=== PATIENT | female | born 1935 | race Caucasian/White ===

== ENCOUNTER → 2017-05-23 | Day surgery (SDC) | payer OTHER ==
[2017-05-17 10:36] VITALS: BMI 36.0
[~2017-05-23] VITALS: Ht 157.5 cm; Wt 90.9 kg
[~2017-05-23] MED LIST: ASPCH81X PO; ATOR-22 PO; CRFL PO; FERR1TAB23 PO; HYDR25TA5 PO; LEVO100T7 PO; LIDOCAINE HCL 2% 2 ML VIAL (20MG/ML) ONE; LISI40TA PO; METO25TA56 PO; MIDAZOLAM HCL 1 MG/ML 2ML VIAL ONE; OMEP40CA41 PO; ONDANSETRON INJ 2 MG/ML 2 ML VIAL ONE; PROPOFOL IV EMULSION 10 MG/ML 20 ML VIAL IV ONE; SODIUM CHLORIDE 0.9% 500ML 500 ML IV ONE; VNTHFA/IN INH
[2017-05-23 08:37] VITALS: Ht 157.5 cm; Wt 90.9 kg
--- NOTE | 2017-05-23 08:43 | Endo History and Physical ---
History & Physical Date of Service: May 23, 2017. Chief Complaint: Referring Physician: History of Present Illness patient with PUD, here for EGD to evaluate healing of the ulcer. Past Surgical History Hx Cardiac Surgery: Yes (HEART CATH-NO STENTS) Hx Internal Defibrillator: No Hx Pacemaker: No Hx Abdominal Surgery: No Hx Post-Op Nausea and Vomiting: Yes Hx Cancer Surgery: No Hx Thoracic Surgery: No Hx Orthopedic: Yes (TATYANA. TKA, LUMBAR SPINAL FUSION) Hx Urinary Tract Surgery: No Family History None Social History Smoking Status: Never Smoker Hx Substance Use: No Hx Alcohol Use: No Allergies Coded Allergies: BEE STING (Verified Allergy, Intermediate, SWELLING, 05/17/17) Sulfa Antibiotics (Verified Allergy, Intermediate, RASH, 05/17/17) Current Medications Reported Home Medications Medications Dose Route/Sig Max Daily Dose Days Date Category Prilosec (Omeprazole) 40 Mg Cap 40 Mg PO BID 05/17/17 Reported Carafate (Sucralfate) 1 Gm/10 Ml Mari 10 Ml PO QID 05/17/17 Reported Iron (Ferrous Sulfate) 325 Mg Tab 1 Tab PO TID 05/17/17 Reported Aspirin Chewable (Aspirin) 81 Mg Chew 2 Tab PO QAM 01/31/17 Reported Ventolin Hfa (Albuterol) 200 Puffs/49710 Mcg Aers 2-4 Puffs INH Q6H PRN 01/31/17 Reported Zestril (Lisinopril) 40 Mg Tab 20 Mg PO QAM 01/31/17 Reported Lopressor (Metoprolol Tartrate) 25 Mg Tab 25 Mg PO HS 01/31/17 Reported Levothyroxine Sodium 100 Mcg Tab 1 Tab PO QAM 90 01/31/17 Reported Lipitor (Atorvastatin Calcium) 20 Mg Tab 20 Mg PO QAM 01/31/17 Reported Hydrochlorothiazide 25 Mg Tab 0.5 Tab PO QAM 01/31/17 Reported Vital Signs Weight (Kilograms): 90.91 Height (Feet): 5 Height (Inches): 2 Physical Exam General Appearance: no apparent distress Respiratory/Chest: Auscultation: breath sounds normal Cardiovascular: Heart Auscultation: RRR Abdomen: Inspection & Palpation: soft, non-distended Assessment and Plan Stable for EGD. I explained the risk and benefit and she agrees.
--- NOTE | 2017-05-23 09:21 | Discharge Instructions ---
Endoscopy Patient Instructions Date / Procedure(s) Performed May 23, 2017. EGD Allergy Information Coded Allergies: BEE STING (Verified Allergy, Intermediate, SWELLING, 05/17/17) Sulfa Antibiotics (Verified Allergy, Intermediate, RASH, 05/17/17) Discharge Date / Findings May 23, 2017. Healing gastric ulcer with scar formation. Nodule in the duodenal bulb, biopsied. Medication Instructions Stopped Medication(s): IRON ONE WEEK AGO Reported Home Medications Medications Dose Route/Sig Max Daily Dose Days Date Category Prilosec (Omeprazole) 40 Mg Cap 40 Mg PO BID 05/17/17 Reported Carafate (Sucralfate) 1 Gm/10 Ml Mari 10 Ml PO QID 05/17/17 Reported Iron (Ferrous Sulfate) 325 Mg Tab 1 Tab PO TID 05/17/17 Reported Aspirin Chewable (Aspirin) 81 Mg Chew 2 Tab PO QAM 01/31/17 Reported Ventolin Hfa (Albuterol) 200 Puffs/66374 Mcg Aers 2-4 Puffs INH Q6H PRN 01/31/17 Reported Zestril (Lisinopril) 40 Mg Tab 20 Mg PO QAM 01/31/17 Reported Lopressor (Metoprolol Tartrate) 25 Mg Tab 25 Mg PO HS 01/31/17 Reported Levothyroxine Sodium 100 Mcg Tab 1 Tab PO QAM 90 01/31/17 Reported Lipitor (Atorvastatin Calcium) 20 Mg Tab 20 Mg PO QAM 01/31/17 Reported Hydrochlorothiazide 25 Mg Tab 0.5 Tab PO QAM 01/31/17 Reported Provider Instructions Activity Restrictions - No exercising or heavy lifting for 24 hours. - Do not drink alcohol the day of the procedure. - Do not drive a car or operate machinery until the day after the procedure. - Do not make any important decisions or sign important papers in 24 hours after the procedure. Following Day: - Return to full activity which may include returning to work/school. Diet Start your diet with liquids and light foods (jello, soup, juice, toast). Then eat your usual diet if not nauseated. Treatment For Common After Affects For mild abdominal pain, bloating, or excessive gas: - Rest - Eat lightly - Lie on right side Follow-Up Information Await pathology result. Follow-up with DR. ORLANDO as scheduled Anesthesia Information What You Should Know You have had a procedure that required some medicine to reduce anxiety and discomfort. This treatment is called moderate sedation. After receiving the treatment, you may be sleepy, but you will be able to breathe on your own. The effects of the treatment may last for several hours. Follow these instructions along with Activity/Diet recommendations noted above: * Do NOT do anything where dizziness or clumsiness would be dangerous. * Rest quietly at home today, then you can be up and about tomorrow. * Have a responsible person stay with you the rest of today. * You may have had an I.V. today. If so, you may take the dressing off later today. Recommendations Call your doctor if: * Trouble breathing * Continuous vomiting for more than 24 hours * Temperature above 101 degrees * Severe abdominal pain or bloating * Pain not relieved by pain medicine ordered * There is increased drainage or redness from any incision * A large amount of rectal bleeding greater than 2-3 tablespoons. (If you had a polyp/s removed or have hemorrhoids, a small amount of blood - from the rectum is to be expected.) * You have any unanswered questions or concerns. IN THE EVENT OF A SERIOUS EMERGENCY, GO TO THE NEAREST EMERGENCY ROOM Your discharge instructions were prepared by provider Robinson May. Patient Instructions Signature Page Magdalena Payan Patient (or Guardian) Signature/Date: I have read and understand the instructions given to me by my caregivers. Caregiver/RN/Doctor Signature/Date: The above-named patient and/or guardian has received patient instructions on this date. + Original Patient Signature Page (only) stays with chart. Please make copy for patient.
--- NOTE | 2017-05-23 09:34 | GI REPORT ---
Procedure Date: 05/23/2017 8:58 AM Procedure: Upper GI endoscopy Indications: Follow-up of gastric ulcer Medicines: Monitored Anesthesia Care Complications: No immediate complications. Estimated Blood Loss: Estimated blood loss: none. Procedure: Pre-Anesthesia Assessment: - Prior to the procedure, a History and Physical was performed, and patient medications and allergies were reviewed. The patient is competent. The risks and benefits of the procedure and the sedation options and risks were discussed with the patient. All questions were answered and informed consent was obtained. Patient identification and proposed procedure were verified by the physician and the nurse in the procedure room. Mental Status Examination: alert and oriented. Airway Examination: normal oropharyngeal airway and neck mobility. Respiratory Examination: clear to auscultation. CV Examination: normal. ASA Grade Assessment: II - A patient with mild systemic disease. After reviewing the risks and benefits, the patient was deemed in satisfactory condition to undergo the procedure. The anesthesia plan was to use monitored anesthesia care (MAC). Immediately prior to administration of medications, the patient was re-assessed for adequacy to receive sedatives. The heart rate, respiratory rate, oxygen saturations, blood pressure, adequacy of pulmonary ventilation, and response to care were monitored throughout the procedure. The physical status of the patient was re-assessed after the procedure. After obtaining informed consent, the endoscope was passed under direct vision. Throughout the procedure, the patient's blood pressure, pulse, and oxygen saturations were monitored continuously. The scope was introduced through the mouth, and advanced to the second part of duodenum. The upper GI endoscopy was accomplished without difficulty. The patient tolerated the procedure well. Findings: The examined esophagus was normal. The prior gastric ulcer in the antrum seems to be healing now with scar formation. Adjacent mucosal findings include erosions and erythema. A single 12 mm submucosal nodule was found in the duodenal bulb. Biopsies were taken with a cold forceps for histology. Verification of patient identification for the specimen was done by the physician and nurse using the patient's name and date. The 2nd part of the duodenum was normal. Impression: - Normal esophagus. - Prior Gastric ulcer is healing with scar formation in the gastric antrum and surrounding erythema noted. - Nodule found in the duodenum. Biopsied. - Normal 2nd part of the duodenum. Recommendation: - Discharge patient to home. - Continue present medications. - Await pathology results. - Continue Omeprazole. - Avoid NSAIDs. - Repeat EGD + endoscopic ultrasound (UEUS) of the duodenal lesion based on pathology results. - Return to referring physician. Robinson May MD 05/23/2017 9:33:45 AM This report has been signed electronically. Note Initiated On: 05/23/2017 8:58 AM I attest to the content of the Intraoperative Record and orders documented therein, exceptions below
--- NOTE | 2017-05-23 09:56 | Anesthesiology Progress Note ---
Anesthesia Post Op Note Date & Time May 23, 2017 at 09:56 Vital Signs Pain Intensity: 0 Vital Signs Past 12 Hours Date Time Temp Pulse Resp B/P (MAP) Pulse Ox O2 Delivery O2 Flow Rate FiO2 05/23/17 09:45 56 16 125/63 (83) 94 Room Air 05/23/17 09:27 59 16 115/70 (85) 96 Room Air 05/23/17 08:46 36.7 65 18 166/95 (118) 97 Room Air Notes Mental Status: alert / awake / arousable, participated in evaluation Pt Amnestic to Procedure: Yes Nausea / Vomiting: adequately controlled Pain: adequately controlled Airway Patency, RR, SpO2: stable & adequate BP & HR: stable & adequate Hydration State: stable & adequate Anesthetic Complications: no major complications apparent
[2017-05-23 10:00] VITALS: BP 137/77; PULSE 57; O2SAT 96
== END | disposition home or self-care (01) ==
LOC: C.GI 08:15
PROVIDERS: ATTEND Student in an Organized Health Care Education/Training Program
DX: D3A.010 Benign carcinoid tumor of the duodenum (principal); Z87.11 Personal history of peptic ulcer disease; I10 Essential (primary) hypertension; Z79.82 Long term (current) use of aspirin; Z79.899 Other long term (current) drug therapy; E78.5 Hyperlipidemia, unspecified; E03.9 Hypothyroidism, unspecified; M19.90 Unspecified osteoarthritis, unspecified site; D64.9 Anemia, unspecified; E66.9 Obesity, unspecified; Z68.36 Body mass index [BMI] 36.0-36.9, adult

== ENCOUNTER → 2017-06-01 | Outpatient (CLI) | payer OTHER ==
[~2017-06-01] MED LIST changes: -LIDOCAINE HCL 2% 2 ML VIAL (20MG/ML) ONE; -MIDAZOLAM HCL 1 MG/ML 2ML VIAL ONE; -ONDANSETRON INJ 2 MG/ML 2 ML VIAL ONE; -PROPOFOL IV EMULSION 10 MG/ML 20 ML VIAL IV ONE; -SODIUM CHLORIDE 0.9% 500ML 500 ML IV ONE
--- NOTE | 2017-06-01 12:17 | DIAGNOSTIC IMAGING REPORT ---
SMALL BOWEL STUDY CLINICAL HISTORY: CARCINOID TUMOR DUODENAL BULB COMPARISON STUDY: None. FLUOROSCOPY TIME: 1.1 minute. 14 images. FINDINGS: Administrative Judge image demonstrates posterior decompression fusion from L3 through L5 with protrusion rods. 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 The patient drank barium contrast without difficulty. Multiple fluoroscopic spot and a right images of the small bowel were obtained over a 40 minute time interval. Small bowel is normal in course and caliber. No dilated loops of small bowel to suggest an obstruction. The terminal ileum is normally distensible. Stomach is normal in size. The duodenal bulb is not well visualized due to suboptimal contrast opacification. IMPRESSION: 1. Normal small bowel follow-through. No filling defects within the small bowel to suggest a mass. 2. The duodenum bulb was not well evaluated due to suboptimal contrast opacification. If further evaluation of the proximal duodenum is desired then a dedicated upper GI series is recommended. Electronically signed by: Jeronimo De La Cruz M.D. 06/01/2017 11:36 AM Dictated Date/Time: 06/01/2017 11:32 AM
== END | disposition home or self-care (01) ==
LOC: C.RAD 09:55
PROVIDERS: ATTEND Student in an Organized Health Care Education/Training Program
DX: D3A.019 Benign carcinoid tumor of the small intestine, unspecified portion (principal)

== ENCOUNTER → 2017-06-02 | Outpatient (CLI) | payer OTHER ==
[~2017-06-02] MED LIST changes: +ASPI81TA28 PO; +GADOXETATE DISODIUM (NON-WT BASED PROCEDURE) IV PRN
--- NOTE | 2017-06-02 13:43 | DIAGNOSTIC IMAGING REPORT ---
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 COMPARISON STUDY: Abdominal CT dated 08/25/2009. TECHNIQUE: MRI of the abdomen is performed transverse T1 and T2-weighted sequences in the axial and coronal planes. Contrast enhanced sequences were acquired following the IV administration of 10 cc view of Eovist subtraction imaging and diffusion-weighted imaging were utilized. MRCP images were also acquired. The examination is moderately degraded by motion artifact, especially arterial phase postcontrast sequence. FINDINGS: Lower chest: No pleural effusion is identified. The heart is normal in size. Liver: The liver is normal in size, contour, and signal intensity. No intrahepatic biliary ductal dilatation is seen. The hepatic veins and portal veins are patent. Subcentimeter cysts are noted in the dome of the liver on axial T2 image #5. A subcentimeter cyst is noted in the left hepatic lobe on image #11. Additional cysts seen on the 2010 CT examination have resolved. No enhancing hepatic lesion is identified. Gallbladder: The gallbladder is normal in appearance. No gallstones are identified. The common bile duct is dilated, measuring up to 1.3 cm diameter. This is likely similar to the prior CT scan. There are no filling defects to indicate choledocholithiasis. There is prominence of the pancreatic duct which measures up to 5 mm The pancreatic head. Spleen: Normal in size and signal intensity. Pancreas: Moderately atrophic and grossly unremarkable. Adrenal glands: Unremarkable. Kidneys: The kidneys demonstrate mild cortical atrophy and are without hydronephrosis. The kidneys enhance and excrete symmetrically. Abdominal aorta: Normal in course and caliber. Bowel: Visualized portions of the small bowel and colon show no evidence of obstruction. The reported duodenal tumor is not visualized. Peritoneum: There is no abdominal ascites. Lymphadenopathy: None. Skeletal structures: Visualized skeletal structures times are normal marrow signal intensity. IMPRESSION: 1. There is no MRI evidence of hepatic metastatic disease. 2. The patient's reported duodenal tumor was not visualized. 3. Additional findings as above. Electronically signed by: Cl Ramesh M.D. 06/02/2017 1:42 PM Dictated Date/Time: 06/02/2017 1:34 PM
== END | disposition home or self-care (01) ==
LOC: C.MRIBC 11:59
PROVIDERS: ATTEND Student in an Organized Health Care Education/Training Program
DX: D3A.010 Benign carcinoid tumor of the duodenum (principal)

== ENCOUNTER 2017-08-01 21:20 | Emergency (ER) | payer OTHER ==
[~2017-08-01] VITALS: Ht 157.5 cm; Wt 96.4 kg
[~2017-08-01 21:20] MED LIST changes: -ASPI81TA28 PO; -GADOXETATE DISODIUM (NON-WT BASED PROCEDURE) IV PRN
[2017-08-01 21:22] VITALS: TEMP 36.6; Ht 157.5 cm; Wt 96.4 kg
--- NOTE | 2017-08-01 21:52 | EMERGENCY ROOM VISIT NOTE ---
History Report prepared by Katie: Rambo Hoff Under the Supervision of: Dr. Philipp Schumacher M.D. First contact with patient: 21:40 Chief Complaint: HYPERTENSION Stated Complaint: HIGH BP History of Present Illness The patient is a 81 year old white female with a past medical history of vertigo and HTN who presents to the ED with a cc of worsening hypertension beginning prior to arrival today. Positive head "numbness", wooziness. She currently has a systolic blood pressure in the 210's. The patient states that her blood pressure normally runs 130 systolic, and never goes over 140. She notes that she has been taking all her blood pressure medications, including Lopressor and Lisinopril. She adds that she took herself off of her HCTZ a few months ago. The patient says that walking is making her woozy today, but her head "numbness" is getting better. She notes no tobacco or alcohol use, nor any excessive stimulant use. She adds that when she measured her blood pressure earlier this afternoon, it was around the 180s systolic. Source of History: patient Onset: [employer] today Position: other (global) Symptom Intensity: 210s systolic Quality: other (hypertension) Timing: worsening Associated Symptoms: + numbness (head - resolving) Note: Positive wooziness with walking. Review of Systems See HPI for pertinent positives and negatives. A total of ten systems were reviewed and were otherwise negative. Past Medical & Surgical Medical Problems: (1) HTN (hypertension) (2) Knee replacement (3) Vertigo Family History Diabetes mellitus FH: cancer FH: gallbladder disease FH: heart disease Hypertension Social History Smoking Status: Never Smoker Drug Use: none Marital Status: Housing Status: lives with significant other Occupation Status: retired Current/Historical Medications Scheduled Aspirin (Aspirin Ec), 162 MG PO QAM Atorvastatin (Lipitor), 20 MG PO QAM Ferrous Sulfate (Iron), 325 MG PO TID Hydrochlorothiazide (Hydrochlorothiazide), 12.5 MG PO QAM Levothyroxine Sodium (Levothyroxine Sodium), 100 MCG PO QAM Lisinopril (Zestril), 20 MG PO QAM Metoprolol Tartrate (Lopressor) (Lopressor), 25 MG PO HS Omeprazole (Prilosec), 40 MG PO BID Sucralfate (Carafate), 10 ML PO QID Scheduled PRN Albuterol Hfa (Ventolin Hfa), 2-4 PUFFS INH Q6H PRN for Shortness of Breath Allergies Coded Allergies: BEE STING (Verified Allergy, Intermediate, SWELLING, 05/17/17) Sulfa Antibiotics (Verified Allergy, Intermediate, RASH, 05/17/17) Physical Exam Vital Signs Date Time Temp Pulse Resp B/P (MAP) Pulse Ox O2 Delivery O2 Flow Rate FiO2 08/01/17 22:43 61 16 153/86 100 Room Air 08/01/17 22:10 61 16 206/89 100 Room Air 08/01/17 22:04 100 Room Air 08/01/17 21:50 57 08/01/17 21:22 36.6 60 16 211/95 97 Room Air Physical Exam GENERAL: Awake, alert, well-appearing, NAD HENT: Normocephalic, atraumatic. EYES: Normal conjunctiva. Sclera non-icteric. NECK: Supple. No nuchal rigidity. FROM. RESPIRATORY: CTAB, no rhonchi, wheezing, crackles CARDIAC: RRR, no MRG ABDOMEN: Soft, NTND, BS+ MSK: No chest wall TTP, no LE edema NEURO: GCS 15, CN 2-12 intact, moves all 4s on command SKIN: No rash or jaundice noted. Medical Decision & Procedures Laboratory Results 08/01/17 21:45 Red Blood Count 4.81, Mean Corpuscular Volume 88.6, Mean Corpuscular Hemoglobin 29.1, Mean Corpuscular Hemoglobin Concent 32.9, Mean Platelet Volume 9.6, Neutrophils (%) (Auto) 59.8, Lymphocytes (%) (Auto) 21.4, Monocytes (%) (Auto) 9.8, Eosinophils (%) (Auto) 8.4, Basophils (%) (Auto) 0.3, Neutrophils # (Auto) 4.68, Lymphocytes # (Auto) 1.67, Monocytes # (Auto) 0.77, Eosinophils # (Auto) 0.66, Basophils # (Auto) 0.02 08/01/17 21:45 Test 08/01/17 21:45 White Blood Count 7.82 K/uL (4.8-10.8) Red Blood Count 4.81 M/uL (4.2-5.4) Hemoglobin 14.0 g/dL (12.0-16.0) Hematocrit 42.6 % (37-47) Mean Corpuscular Volume 88.6 fL (80-100) Mean Corpuscular Hemoglobin 29.1 pg (25-34) Mean Corpuscular Hemoglobin Concent 32.9 g/dl (32-36) Platelet Count 208 K/uL (130-400) Mean Platelet Volume 9.6 fL (7.4-10.4) Neutrophils (%) (Auto) 59.8 % Lymphocytes (%) (Auto) 21.4 % Monocytes (%) (Auto) 9.8 % Eosinophils (%) (Auto) 8.4 % Basophils (%) (Auto) 0.3 % Neutrophils # (Auto) 4.68 K/uL (1.4-6.5) Lymphocytes # (Auto) 1.67 K/uL (1.2-3.4) Monocytes # (Auto) 0.77 K/uL (0.11-0.59) Eosinophils # (Auto) 0.66 K/uL (0-0.5) Basophils # (Auto) 0.02 K/uL (0-0.2) RDW Standard Deviation 57.8 fL (36.4-46.3) RDW Coefficient of Variation 17.6 % (11.5-14.5) Immature Granulocyte % (Auto) 0.3 % Immature Granulocyte # (Auto) 0.02 K/uL (0.00-0.02) Anion Gap 7.0 mmol/L (3-11) Est Creatinine Clear Calc Drug Dose 35.6 ml/min Estimated GFR () 41.7 Estimated GFR (Non- 36.0 BUN/Creatinine Ratio 17.3 (10-20) Calcium Level 9.1 mg/dl (8.5-10.1) Laboratory results reviewed by me Medications Administered Medications (Trade) Dose Ordered Sig/Deysi Route Start Time Stop Time Status Last Admin Dose Admin Metoprolol Tartrate (Lopressor Tab) 25 mg NOW STAT PO 08/01/17 21:54 08/01/17 21:56 DC 08/01/17 22:03 25 MG Acetaminophen (Tylenol Tab) 650 mg NOW STAT PO 08/01/17 21:54 08/01/17 21:56 DC 08/01/17 22:03 650 MG Nitroglycerin (Nitrostat Tab) 0.4 mg NOW STAT SL 08/01/17 21:54 08/01/17 21:56 DC 08/01/17 22:02 0.4 MG ECG Per My Interpretation Indication: other (hypertension) Rate (beats per minute): 61 Rhythm: sinus rhythm Findings: 1st degree AV block, Q waves (Inferior), other (prolonged [place], normal axis, no other sts changes or twi) Change: no significant change (compared to 12/01/13) ED Course 2145: The patient was evaluated in room C4. A complete history and physical exam was performed. 2241: I reevaluated the patient and she is resting comfortably. Discussed results and discharge instructions: she verbalized understanding and agreement. The patient is ready for discharge. Medical Decision The patient is a 81 year old white female with a past medical history of vertigo and HTN who presents to the ED with a cc of worsening hypertension beginning prior to arrival today. Positive head "numbness", wooziness. Differential diagnosis: Etiologies such as benign hypertension, hypertensive emergency, cardiovascular pathology, pheochromocytoma, electrolyte abnormality, renal disease, endorgan damage, as well as others were entertained. Patient was seen and evaluated the bedside. Patient did complain of some head numbness. Patient also stated that she had an elevated blood pressure. She states that she took her blood pressure which was 180 and then 200 systolic. Patient denies any chest pains or shortness of breath. She also denies any numbness tingling or weakness in her extremities or back or body. Patient's neurologic exam is completely unremarkable. Patient denies any vision deficits. Patient did have blood work completed and was given some medication for blood pressure as well as for headache. Patient's blood pressure improved and patient feels well and asymptomatic. I discussed with the patient that since she had stopped taking her hydrochlorothiazide it would be of benefit to restart taking this medication. Patient was also told to follow with her PCP order to make sure that her medications were adjusted appropriately. Patient was given warning signs and return precautions. Patient and family member at the bedside agreed with plan of care. Patient was given strict follow-up, discharge, and return precautions. All questions were answered. Patient was deemed suitable for outpatient follow-up at this time. Patient agreed with the plan of care and was safely discharged home. Medication Reconcilliation Current Medication List: was personally reviewed by me Blood Pressure Screening Patient's blood pressure: Elevated blood pressure Blood pressure disposition: Referred to PCP Impression Primary Impression: HTN (hypertension) Scribe Attestation The scribe's documentation has been prepared under my direction and personally reviewed by me in its entirety. I confirm that the note above accurately reflects all work, treatment, procedures, and medical decision making performed by me. Departure Information Dispostion Home / Self-Care Referrals Chelsey Mitchell D.O. (PCP) Patient Instructions Hypertension Control, Hypertension Dc, My [facility] Additional Instructions Please return to the emergency department if you have worsening or recurrent symptoms not amenable to at-home treatment. Please call for a follow-up appointment with her primary care physician. Please take your medications as prescribed. If you have other concerns and/or complaints please feel free to also call your primary care physician's office or return the ED for further evaluation, management, and treatment. You were found to have an elevated blood pressure today (>120 sytolic or >90 diastolic). Per medicare guidelines, you need to follow up with this blood pressure screening with your Primary Care Physician (PCP). For a new PCP call [phone]. You may take tylenol 650 mg every 6 hours as needed for pain. Take your medications as prescribed. Please resume taking your hydrochlorothiazide. If you do notice that her blood pressure is up she may also take an extra Lopressor provided that your heart rate is greater than 60. Please follow-up with your PCP for the blood pressure management. You have been examined and treated today on an emergency basis only. This is not a substitute for, or an effort to provide, complete comprehensive medical care. It is impossible to recognize and treat all injuries or illnesses in a single emergency department visit. It is therefore important that you follow up closely with [facility], your PCP, and/or your specialist(s). Call as soon as possible for an appointment. Thank you for your time and consideration. I look forward to speaking with you again soon. Please don't hesitate to call us if you have any questions. Problem Qualifiers Primary Impression: HTN (hypertension) Hypertension type: unspecified Qualified Codes: I10 - Essential (primary) hypertension
[2017-08-01] MEDS ORDERED: NITROGLYCERIN 0.4 MG SL PER TAB CHARGE SL STA (21:54)
[2017-08-01] MEDS ORDERED: METOPROLOL TARTRATE 50 MG TAB PO STA (21:54)
[2017-08-01] MEDS ORDERED: ACETAMINOPHEN 325 MG TAB PO STA (21:54)
[2017-08-01 22:04] VITALS: O2SAT 100
[2017-08-01 22:05] LABS: BASO % 0.3 %; BASO ABS # 0.02 K/uL (0-0.2); EOS % 8.4 %; EOS ABS # 0.66 K/uL (0-0.5); HEMATOCRIT 42.6 % (37-47); IG# 0.02 K/uL (0.00-0.02); LYMPH % 21.4 %; LYMPH ABS # 1.67 K/uL (1.2-3.4); MEAN CELL VOLUME 88.6 fL (80-100); MEAN CORPUSCULAR HEMOGLOBIN 29.1 pg (25-34); MEAN CORPUSCULAR HGB CONC 32.9 g/dl (32-36); MEAN PLATELET VOLUME 9.6 fL (7.4-10.4); MONO % 9.8 %; MONO ABS # 0.77 K/uL (0.11-0.59); NEUT % 59.8 %; NEUT ABS # 4.68 K/uL (1.4-6.5); PLATELET COUNT 208 K/uL (130-400); RED CELL DISTRIBUTION WIDTH CV 17.6 % (11.5-14.5); RED CELL DISTRIBUTION WIDTH SD 57.8 fL (36.4-46.3); WHITE BLOOD COUNT 7.82 K/uL (4.8-10.8)
[2017-08-01] MEDS ORDERED: ASPI81TA28 PO (22:18)
[2017-08-01 22:23] LABS: CALCIUM 9.1 mg/dl (8.5-10.1); CREATININE 1.39 mg/dl (0.60-1.20); POTASSIUM 3.8 mmol/L (3.5-5.1)
[2017-08-01 22:43] VITALS: PULSE 61; O2SAT 100
[2017-08-01 23:07] VITALS: BP 142/70
== END 2017-08-01 23:08 | disposition home or self-care (01) ==
LOC: C.EDB 21:21 → C.EDC 23:08
DX: I10 Essential (primary) hypertension (principal); Z96.659 Presence of unspecified artificial knee joint; Z79.82 Long term (current) use of aspirin; Z79.899 Other long term (current) drug therapy

== ENCOUNTER → 2017-08-31 | Day surgery (SDC) | payer OTHER ==
[2017-08-23 07:54] VITALS: Ht 157.5 cm; Wt 90.9 kg
[~2017-08-31] VITALS: Ht 157.5 cm; Wt 90.9 kg
[~2017-08-31] MED LIST changes: -ASPCH81X PO; +ASPI81TA28 PO; -HYDR25TA5 PO; +LIDOCAINE HCL 2% 2 ML VIAL (20MG/ML) ONE; +PROPOFOL IV EMULSION 10 MG/ML 20 ML VIAL IV ONE; +SODIUM CHLORIDE 0.9% 500ML 500 ML IV ONE
--- NOTE | 2017-08-31 08:25 | Endo History and Physical ---
History & Physical Date of Service: Aug 31, 2017. Chief Complaint: Referring Physician: History of Present Illness Patient with Hx of duodenal carcinoid s/p BWR, here for follow up. Past Surgical History Hx Cardiac Surgery: Yes (HEART CATH-NO STENTS) Hx Internal Defibrillator: No Hx Pacemaker: No Hx Abdominal Surgery: No Hx Post-Op Nausea and Vomiting: Yes (N/V AFTER CATARACT SURGERY) Hx Cancer Surgery: Yes (SKIN EXCISION) Hx Thoracic Surgery: No Hx Orthopedic: Yes (TATYANA. TKA, LUMBAR SPINAL FUSION) Hx Urinary Tract Surgery: No Family History None Social History Smoking Status: Never Smoker Hx Substance Use: No Hx Alcohol Use: No Allergies Coded Allergies: BEE STING (Verified Allergy, Intermediate, SWELLING, 08/31/17) Sulfa Antibiotics (Verified Allergy, Intermediate, RASH, 08/31/17) Current Medications Reported Home Medications Medications Dose Route/Sig Max Daily Dose Days Date Category Aspirin Ec (Aspirin) 81 Mg Tab 162 Mg PO QAM 08/01/17 Reported Prilosec (Omeprazole) 40 Mg Cap 40 Mg PO BID 05/17/17 Reported Carafate (Sucralfate) 1 Gm/10 Ml Mari 10 Ml PO QID 05/17/17 Reported Iron (Ferrous Sulfate) 325 Mg Tab 325 Mg PO BID 05/17/17 Reported Ventolin Hfa (Albuterol) 200 Puffs/78863 Mcg Aers 2-4 Puffs INH Q6H PRN 01/31/17 Reported Zestril (Lisinopril) 40 Mg Tab 40 Mg PO QAM 01/31/17 Reported Lopressor (Metoprolol Tartrate) 25 Mg Tab 25 Mg PO HS 01/31/17 Reported Levothyroxine Sodium 100 Mcg Tab 100 Mcg PO QAM 01/31/17 Reported Lipitor (Atorvastatin Calcium) 20 Mg Tab 20 Mg PO QAM 01/31/17 Reported Vital Signs Weight (Kilograms): 90.91 Height (Feet): 5 Height (Inches): 2 Physical Exam General Appearance: no apparent distress Respiratory/Chest: Auscultation: breath sounds normal Cardiovascular: Heart Auscultation: RRR Abdomen: Inspection & Palpation: soft Liver: non-tender Assessment and Plan Stable for EGD for surveillance on Carcinoid
[2017-08-31 08:26] VITALS: TEMP 36.6
--- NOTE | 2017-08-31 09:19 | GI REPORT ---
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 Estimated Blood Loss: Estimated blood loss: none. Procedure: Pre-Anesthesia Assessment: - Prior to the procedure, a History and Physical was performed, and patient medications and allergies were reviewed. The patient is competent. The risks and benefits of the procedure and the sedation options and risks were discussed with the patient. All questions were answered and informed consent was obtained. Patient identification and proposed procedure were verified by the physician and the nurse in the procedure room. Mental Status Examination: alert and oriented. Airway Examination: normal oropharyngeal airway and neck mobility. Respiratory Examination: clear to auscultation. CV Examination: normal. ASA Grade Assessment: III - A patient with severe systemic disease. After reviewing the risks and benefits, the patient was deemed in satisfactory condition to undergo the procedure. The anesthesia plan was to use monitored anesthesia care (MAC). Immediately prior to administration of medications, the patient was re-assessed for adequacy to receive sedatives. The heart rate, respiratory rate, oxygen saturations, blood pressure, adequacy of pulmonary ventilation, and response to care were monitored throughout the procedure. The physical status of the patient was re-assessed after the procedure. After obtaining informed consent, the endoscope was passed under direct vision. Throughout the procedure, the patient's blood pressure, pulse, and oxygen saturations were monitored continuously. The Scope was introduced through the mouth, and advanced to the second part of duodenum. The upper GI endoscopy was accomplished without difficulty. The patient tolerated the procedure well. Findings: The examined esophagus was normal. Localized mild inflammation characterized by erosions and erythema was found in the gastric antrum. A small scar related to post banding without resection (BWR) of prior Carcinoid tumor was found in the duodenal bulb. There was no evidence of the previous nodule. Biopsies were taken with a cold forceps for histology to confirm microscopic resolution. Verification of patient identification for the specimen was done by the physician and nurse using the patient's name and date. The second portion of the duodenum was normal. Impression: - Normal esophagus. - Gastritis. - Duodenal scar at the resection site of (BWR). No evidence of residual tumor (Carcinoid). Biopsied. - Normal second portion of the duodenum. Recommendation: - Discharge patient to home. - Await pathology results. - Can decrease Prilosec (omeprazole) to 40 mg PO daily. - Repeat upper endoscopy in 1 year for surveillance. - Return to referring physician. Robinson May MD 08/31/2017 9:18:56 AM This report has been signed electronically. Note Initiated On: 08/31/2017 8:32 AM I attest to the content of the Intraoperative Record and orders documented therein, exceptions below
--- NOTE | 2017-08-31 09:20 | Discharge Instructions ---
Endoscopy Patient Instructions Date / Procedure(s) Performed Aug 31, 2017. EGD Allergy Information Coded Allergies: BEE STING (Verified Allergy, Intermediate, SWELLING, 08/31/17) Sulfa Antibiotics (Verified Allergy, Intermediate, RASH, 08/31/17) Discharge Date / Findings Aug 31, 2017. Normal esophagus. Gastritis. Scar at the site of prior resected duodenal carcinoid tumor. No evidence of residual tumor. This was biopsied. Provider Instructions Activity Restrictions - No exercising or heavy lifting for 24 hours. - Do not drink alcohol the day of the procedure. - Do not drive a car or operate machinery until the day after the procedure. - Do not make any important decisions or sign important papers in 24 hours after the procedure. Following Day: - Return to full activity which may include returning to work/school. Diet Start your diet with liquids and light foods (jello, soup, juice, toast). Then eat your usual diet if not nauseated. Treatment For Common After Affects For mild abdominal pain, bloating, or excessive gas: - Rest - Eat lightly - Lie on right side Follow-Up Information Follow-up with Dr. Mitchell as scheduled Anesthesia Information What You Should Know You have had a procedure that required some medicine to reduce anxiety and discomfort. This treatment is called moderate sedation. After receiving the treatment, you may be sleepy, but you will be able to breathe on your own. The effects of the treatment may last for several hours. Follow these instructions along with Activity/Diet recommendations noted above: * Do NOT do anything where dizziness or clumsiness would be dangerous. * Rest quietly at home today, then you can be up and about tomorrow. * Have a responsible person stay with you the rest of today. * You may have had an I.V. today. If so, you may take the dressing off later today. Recommendations Call your doctor if: * Trouble breathing * Continuous vomiting for more than 24 hours * Temperature above 101 degrees * Severe abdominal pain or bloating * Pain not relieved by pain medicine ordered * There is increased drainage or redness from any incision * A large amount of rectal bleeding greater than 2-3 tablespoons. (If you had a polyp/s removed or have hemorrhoids, a small amount of blood - from the rectum is to be expected.) * You have any unanswered questions or concerns. IN THE EVENT OF A SERIOUS EMERGENCY, GO TO THE NEAREST EMERGENCY ROOM Your discharge instructions were prepared by provider Robinson May. Patient Instructions Signature Page Magdalena Payan Patient (or Guardian) Signature/Date: I have read and understand the instructions given to me by my caregivers. Caregiver/RN/Doctor Signature/Date: The above-named patient and/or guardian has received patient instructions on this date. + Original Patient Signature Page (only) stays with chart. Please make copy for patient.
--- NOTE | 2017-08-31 09:29 | Anesthesiology Progress Note ---
Anesthesia Post Op Note Date & Time Aug 31, 2017 at 09:29 Vital Signs Pain Intensity: 0 Vital Signs Past 12 Hours Date Time Temp Pulse Resp B/P (MAP) Pulse Ox O2 Delivery O2 Flow Rate FiO2 08/31/17 09:26 56 16 129/63 (85) 96 Room Air 08/31/17 09:09 60 16 106/48 (67) 94 Room Air 08/31/17 08:26 36.6 67 18 194/75 (114) 96 Room Air Notes Mental Status: alert / awake / arousable, participated in evaluation Pt Amnestic to Procedure: Yes Nausea / Vomiting: adequately controlled Pain: adequately controlled Airway Patency, RR, SpO2: stable & adequate BP & HR: stable & adequate Hydration State: stable & adequate Anesthetic Complications: no major complications apparent
[2017-08-31 09:41] VITALS: BP 145/63; PULSE 56; O2SAT 96
== END | disposition home or self-care (01) ==
LOC: C.GI 07:57
PROVIDERS: ATTEND Student in an Organized Health Care Education/Training Program
DX: Z85.068 Personal history of other malignant neoplasm of small intestine (principal); I10 Essential (primary) hypertension; E78.5 Hyperlipidemia, unspecified; E03.9 Hypothyroidism, unspecified; M19.90 Unspecified osteoarthritis, unspecified site; M81.0 Age-related osteoporosis without current pathological fracture; Z98.49 Cataract extraction status, unspecified eye; Z96.653 Presence of artificial knee joint, bilateral; Z98.1 Arthrodesis status; Z88.2 Allergy status to sulfonamides; Z91.030 Bee allergy status; Z79.82 Long term (current) use of aspirin; Z85.820 Personal history of malignant melanoma of skin

== ENCOUNTER 2020-01-08 06:36 | Observation (INO) ==
[2020-01-08] MEDS ORDERED: LIDOCAINE HCL 1% 20 ML VIAL ONE (07:06)
[2020-01-08] MEDS ORDERED: MIDAZOLAM HCL 5 MG/ML 1 ML VIAL ONE (07:07)
[2020-01-08] MEDS ORDERED: CEFAZOLIN 250 MG/ML 1 GM VIAL ONE (07:07)
[2020-01-08] MEDS ORDERED: BUPIVACAINE 0.25% 30 ML VIAL ONE (07:07)
[2020-01-08] MEDS ORDERED: BACITRACIN INJ 50,000 UNIT VIAL ONE (07:07)
[2020-01-08] MEDS ORDERED: fentaNYL citrate 100 MCG/2 ML VIAL ONE (07:07)
--- NOTE | 2020-01-08 08:21 | Pre Anesthesia Assessment ---
Date of Service January 08, 2020 Pre Sedation Assessment Vital Signs Temp Pulse Resp BP Pulse Ox 01/08/20 06:48 36.7 C 57 L 22 145/106 H 97 Cardiovascular + bradycardic Respiratory normal respiratory effort, lungs clear to auscultation Pre-Sedation Airway Assessment Smoking Status: Never smoker Hx Sleep Apnea: No Short, Thick Neck: No Thyromental Distance: > or= 3.5 Finger Breadths Oral Cavity: + WNL Mallampati Class: II ASA: ASA3 NPO Status Date of Last Intake of Fluids: 01/08/20 Time of Last Intake of Fluids: 06:00 Last Oral Intake of Fluids Comment: sips with pills Date of Last Intake of Solid Food: 01/07/20 Time of Last Intake of Solid Foods: 21:00 Procedure Planning Contraindications for Sedation: none Current Medications Reviewed: Yes Notes The planned sedation has been discussed with the patient. Informed Consent was obtained. I have identified the patient, determined the appropriateness of sedation and have assessed the patient immediately prior to the procedure. All medicine(s) and interventions are by my order.
--- NOTE | 2020-01-08 08:21 | History & Physical Bridge Note ---
Date of Service January 08, 2020 History & Physical Bridge Note I have examined the patient, reviewed the History & Physical and in the interval since the performance of the History & Physical I have noted the following changes of clinical significance: no changes noted
[2020-01-08] MEDS ORDERED: HydrALAZINE HCL 20 MG/ML VIAL ONE (08:53)
[2020-01-08] MEDS ORDERED: ONDANSETRON INJ 2 MG/ML 2 ML VIAL ONE (09:01)
--- NOTE | 2020-01-08 10:16 | Post Anesthesia Assessment ---
Date of Service January 08, 2020 Post Sedation Assessment Vital Signs Temp Pulse Resp BP Pulse Ox 01/08/20 06:48 36.7 C 57 L 22 145/106 H 97 Recovery Score Activity: Moves 4 extremities Respiration: Deep Breath/Cough Circulation: +/-20% PreAnes Value Consciousness: Fully Awake Oxygen Saturation: > 92% On Room Air Discharge Sedation Level of Care: Fast Track Phase II Post Sedation Plan On clinical assessment, the patient appears to have tolerated the sedation without complications. Patient is recovering as anticipated. Patient will continue to be monitored by nursing and may be discharged when sedation discharge criteria are met per below protocol. Upon Completions of procedure up to 15 minutes continue every 5 minute vital signs and the P.A.R. score; then discharge to a Phase I or Fast Track to Phase II per the following guidelines: * Discharge Patient to appropriate Phase II area if PAR is 8 or greater or return to pre- procedure baseline. The post - procedure orders will be as directed. * If PAR score is less than 8 or not return to pre-procedure baseline then patient will follow Phase I monitoring till PAR is reached for Phase II. The Phase I may be done in procedure room or may call to secure a Phase I area. * If naloxone or flumazenil are used for reversal, hold in Phase I for continued monitoring from when last reversal dose was given for a minimum of 60 minutes or longer pending the nurse and/or physician discretion of patient condition before discharge to Phase II. Please call the Sedation Physician to re-evaluate and complete post-note for discharge to Phase II area. Do NOT discharge from procedure sedation or Phase 1 until post- sedation evaluation note is complete by procedure /sedation MD Sedation Discharge Instructions to be given to the patient at discharge to home.
[2020-01-08] MEDS ORDERED: OXYCODONE/ACETAMINOPHEN 5mg/325mg TAB PO PRN (10:17)
[2020-01-08] MEDS ORDERED: NURSING DECISION MEDICATION ONE (10:17)
--- NOTE | 2020-01-08 10:17 | Operative Report ---
Post Operative Report Pre & Post Diagnosis SSS Operation Date: 01/08/20 08:00 <No data on this case meets the specified criteria> I identified the patient and participated in the time-out.: Yes Procedure Operation Date: 01/08/20 08:00 Actual Procedures p Pacer with A/V Leads (Dual) - Kathleen Rosas DO Surgeon Kathleen Rosas, District Adviser none Estimated Blood Loss 20 Findings Consistent with Post-Op Diagnosis Specimens none Description of Procedure see official report I attest to the content of the Intraoperative Record and any orders documented therein. Any exceptions are noted below.
[2020-01-08] MEDS ORDERED: MECLIZINE 12.5 MG TAB PO PRN (10:22)
--- NOTE | 2020-01-08 10:30 | Discharge Summary ---
Date of Service January 09, 2020 Admission HPI Per Admitting Provider Pt admitted for elective ppm due to SOB and fatigue due to SSS Admission Exam Per Admitting Provider aaox3, NAD NC/AT, EOMI Supple No JVD +bradycardia S1/S2, No murmur CTA b/l no w/r/r soft nt/nd no LE edema b/l skin intact no focal deficits Principal Diagnosis SSS s/p dual chamber ppm Discharge Exam aaox3, NAD NC/AT, EOMI Supple No JVD Nrl S1/S2, No murmur CTA b/l no w/r/r soft nt/nd no LE edema b/l skin intact no focal deficits left pectoral incision intact, no hematoma mild ecchymosis Discharge Data Allergies Allergy/AdvReac Type Severity Reaction Status Date / Time bee venom protein (honey bee) Allergy Intermediate SWELLING Verified 01/08/20 06:44 Sulfa (Sulfonamide Allergy Intermediate RASH Verified 01/08/20 06:44 Antibiotics) Procedures Performed Operation Date: 01/08/20 08:00 Actual Procedures p Pacer with A/V Leads (Dual) - Kathleen Rosas DO Ordered Studies ECG: AP-VS CXR: NO PTX, leads in position Pacemaker Interrogation: Normal function and stable lead testing since implant 01/08/20 06:40 FL pacemaker insert Routine 01/08/20 07:00 EP Lab Images for PACS ONCE Hospital Course (1) SSS (sick sinus syndrome): Total Time Total Time Spent Total Time Spent (In Minutes): 40 Total Time Includes: Examination of the Patient, Discharge Planning, Medication Reconciliation and Other Discharge Plan Discharge Items Patient Disposition: Home - Self-Care Reason For Visit: DCP Discharge Diagnosis: SSS s/p dual chamber ppm Condition on Discharge: Good Activity: As commented below Activity Comment: do not lift the left elbow over the left shoulder for 1 month Lifting: No more than 10 pounds Lifting Comment: do not lift more than 10 pounds with the left arm for 2 weeks Bathing: Keep incision dry Bathing Comment: keep dressing on and dry until wound check next week Non-emergency contact: Oyster Planter Call non-emergency contact if: you have any medication questions Follow-up/Referrals: Chelsey Mitchell DO [Primary Care Provider] - Diet: Heart Healthy Addtl Attending Provider Instructions: device and wound check next week at [facility] as scheduled wear a sports bra or the surgical bra ideally for the next 2-3 weeks to help with wound healing Pending Studies at Discharge: No Stand-Alone Forms: [facility] Medications and DC Order Prescriptions: Continued ALBUTEROL HFA (VENTOLIN HFA) 200 PUFFS/18,000 MCG AEROSOL,SOLN 2 - 4 puff Inhalation Q6H PRN (Reason: Shortness of Breath) Qty: 0 RF: 0 ATORVASTATIN (LIPITOR) 20 MG tablet 20 mg PO QAM Qty: 0 RF: 0 LEVOTHYROXINE SODIUM 100 MCG tablet 100 mcg PO QAM Qty: 0 RF: 0 LISINOPRIL (ZESTRIL) 40 MG tablet 40 mg PO QAM Qty: 0 RF: 0 Metoprolol Tartrate (Lopressor) (Lopressor) 25 MG tablet 12.5 mg PO BID Qty: 0 RF: 0 OMEPRAZOLE (PRILOSEC) 40 MG capsule 40 mg PO DAILY Qty: 0 RF: 0 metformin 500 mg Tablet 500 mg PO DAILY RF: 0 meclizine 12.5 mg Tablet 12.5 mg PO TID PRN (Reason: Dizziness) RF: 0 hydrochlorothiazide 25 mg Tablet 12.5 mg PO DAILY RF: 0 diclofenac sodium 1 % Gel 2 g TOPICAL QID RF: 0 Discharge Orders: Discharge Order (Routine); Ordered 01/09/20 Ordered By: Kathleen Rosas Admission Data Admit Date/Time: 01/08/20 09:30 Attending Provider: Kathleen Rosas Admit Provider: Kathleen Rosas Primary Care Provider: Chelsey Mitchell
--- NOTE | 2020-01-08 12:02 | Electrocardiogram Report ---
Test Reason : Blood Pressure : / mmHG Vent. Rate : 060 BPM Atrial Rate : 060 BPM P-R Int : 320 ms QRS Dur : 112 ms QT Int : 448 ms P-R-T Axes : 066 -06 -08 degrees QTc Int : 448 ms Atrial-paced rhythm with prolonged AV conduction Incomplete right bundle branch block Abnormal ECG When compared with ECG of 01-AUG-2017 21:38, Electronic atrial pacemaker has replaced Sinus rhythm Incomplete right bundle branch block is new Confirmed by Vel Engel ([id number]) on 01/08/2020 12:02:14 PM Referred By: Kathleen Rosas Confirmed By:Maninder Engel
[2020-01-08] MEDS: ACETAMINOPHEN 325 MG TAB PO PRN ×2 (14:10→23:26)
[2020-01-08] MEDS: METOPROLOL TARTRATE 25 MG TAB PO SCH (20:51)
[2020-01-09] MEDS ORDERED: LEVOTHYROXINE SODIUM 100 MCG TABLET PO SCH (06:30)
--- NOTE | 2020-01-09 06:53 | XRay Report ---
XR chest 2V PA/lateral HISTORY: 84 years-old Female post ppm (RV lead in the left bundle position) status post placement of a left subclavian pacer COMPARISON: Chest radiograph 12/01/2013 TECHNIQUE: PA and lateral views of the chest FINDINGS: Lateral view is limited secondary to left upper extremity positioning. The cardiac silhouette is uppe r limits of normal in size. Calcified plaque of the thoracic aortic arch. Dual lead left subclavian p acer. The leads appear intact. No pneumothorax, pleural effusion, overt pulmonary edema or airspace c onsolidation typical for pneumonia. Hyperinflation with minimal linear subsegmental bibasilar atelect asis. Degenerative changes of the shoulders and spine. Convex right curvature of the mid to lower tho racic spine with lumbar levoscoliosis. Partially imaged spinal fusion hardware of the lumbar spine. IMPRESSION: Status post placement of a dual lead left subclavian pacer. No postprocedural pneumothora x. ACT 112: Negative or not required by law. The above report was generated using voice recognition software. It may contain grammatical, syntax o r spelling errors. Electronically signed by: Nick Bailey M.D. 01/09/2020 6:52 AM
[2020-01-09] MEDS ORDERED: METFORMIN HCL 500 MG TAB PO SCH (07:30)
[2020-01-09] MEDS ORDERED: NURSING DECISION MEDICATION ONE (07:50)
[2020-01-09] MEDS: METOPROLOL TARTRATE 25 MG TAB PO SCH (08:46)
[2020-01-09] MEDS ORDERED: PANTOprazole 40 MG TAB PO SCH (09:00)
[2020-01-09] MEDS ORDERED: hydroCHLOROthiazide 25 MG TAB PO SCH (09:00)
[2020-01-09] MEDS ORDERED: ATORVASTATIN 20 MG TAB PO SCH (09:00)
[2020-01-09] MEDS ORDERED: lisinopriL 40 MG TAB PO SCH (09:00)
--- NOTE | 2020-01-20 13:31 | Operative Report (OR) ---
DATE OF OPERATION: 01/08/2020 PREOPERATIVE DIAGNOSES: Syncope and sick sinus syndrome. POSTOPERATIVE DIAGNOSES: Syncope and sick sinus syndrome. PROCEDURE: Dual chamber rate responsive (RV lead in the left bundle position) permanent pacemaker under fluoroscopic guidance along with intracardiac EGM mapping of the His bundle region. SURGEON: Kathleen Rosas DO. ASSISTANTS: None. ANESTHESIA: Monitored conscious sedation administered under my supervision by Janae Boyce. Start time 8:39, end time 10:11, a total of 2 mg of Versed and 75 mcg of fentanyl. IV FLUIDS: 49 mL. ANTIBIOTICS: Two grams of Ancef. IV CONTRAST: 5 mL. URINE OUTPUT: Not applicable. SPECIMENS: None. FINDINGS: See below. DRAINS: None. BLOOD LOSS: 15 mL. INDICATIONS: This is an 84-year-old female with past medical history of hypertension, hyperlipidemia, chronic kidney disease stage III, diabetes, moderate aortic stenosis, sicca syndrome, primary pancreatic neuroendocrine tumor. She most recently has been having some syncopal episodes and wore a Zio patch and was found to have sick sinus syndrome and was recommended a pacemaker. CONSENT: Consent was obtained prior to the patient going into Electrophysiology Lab. The patient was informed of the risks, benefits and alternatives to procedure. Risks include but not limited to injury to the blood vessels, chamber of the heart, lung; bleeding and infection; myocardial infarction; ; arrhythmias and strokes. The patient understood these risks and agreed to the procedure as planned. Informed consent was obtained. DESCRIPTION OF THE PROCEDURE: The patient was brought into the Electrophysiology Lab in fasting state. She was connected to continuous monitoring tech. Timeout was performed to ensure patient identity and procedure correctly. The patient was prepped and draped over the left infraclavicular space in normal surgical standard fashion. Monitored conscious sedation was given throughout the procedure for the patient's comfort level. Rhodes precautions were maintained throughout the procedure. A 10 mL of 1% lidocaine-bupivacaine mixture were given in the left deltopectoral groove. Incision was made in left deltopectoral groove. Blunt dissection performed down to identify the cephalic vein. Cephalic vein was identified and isolated using 0 silk ties. The vein was nicked with 11 blade and a guidewire was inserted without any resistance. An 8-Marshallese sheath was inserted over the guidewire without any resistance. Dilator was removed and a second guidewire was inserted through the 8-Marshallese sheath to allow for retained venous access. Sheath was removed, flushed and then reinserted over one of the guidewires. Then, the patient did have some episodes of vasovagal during the procedure, so I opted to put the atrial lead down into the right ventricle and had that for backup pacing while I then positioned the left bundle lead. So, I had one 8-Marshallese sheath into the cephalic vein that had the atrial lead in the right ventricle for a short period of time. While that was there, I then placed another 8-Marshallese sheath over the retained guidewire. Guidewire and dilator removed and then the [employer] His outer sheath preformed J curve was advanced into the heart over a Glidewire. The Glidewire and dilator removed. Then the lead was advanced and I did intracardiac mapping of the His bundle region where the AH was found to be 250 milliseconds and the HV was found to be 70 milliseconds. This His area was marked on a fluoroscopy monitor and when the II was in 30 degrees, it is FERRELL. Then I kind of laith an imaginary line to the apex of the heart from that His bundle and then about 2 cm down made another dot on my II monitors. Then, I positioned the pacing lead down about 2 cm from the His bundle region. I screwed it in TONIO 30 few times and monitored as I continuously did interrupting turns to screw in the lead through the septum, monitored the electrogram anatomy of V1 as well as the stim to peak of the QRS in V6 and the impedance drops. Then, I did give 5 mL of contrast to see that I was up against the septum. Then the His sheath was slit under fluoroscopic guidance. I left the 8-Marshallese sheath in and unscrewed the backup lead that was in the right ventricle and positioned that into the right atrium under fluoroscopic guidance. It was positioned in the right atrial appendage. There was adequate pacing and sensing thresholds and no diaphragmatic stimulation with high output pacing. That 8-Marshallese sheath was peeled away and lead was fixated to pectoralis muscle using 0 silk suture. I then slit the 8-Marshallese sheath that was over the left bundle lead and then that lead was fixated to pectoralis muscle using 0 silk suture. The pacemaker pocket was created using blunt dissection over the pectoralis muscle within the pectoralis fascia. The pocket was flushed with copious amounts of bacitracin saline wash and inspected for hemostasis. The pulse generator was then attached to the leads making sure that the pins were in appropriate position, passed set screws and set screws were all tightened. Pulse generator was then placed in the pocket making sure that the leads were lying flat beneath the device. A stay stitch using 0 silk suture was used to secure the device to pectoralis muscle. The incision was closed in a 3-layer fashion using 2-0 Vicryl interrupted suture, followed by 3-0 Vicryl interrupted suture, followed by a 4-0 Monocryl running stitch and Dermabond was applied followed then by a Telfa and micropore dressing. EQUIPMENT: 1. The pulse generator is a [employer] Lizzy XT DR PEDRO Calles, [id number], serial number [id number]. 2. Right atrial lead: Medtronic 5076-52 cm, serial number [id number]. 3. Right ventricular lead: Medtronic 3830-69 cm, serial number [id number]. INTRAOPERATIVE TESTIN. Right atrial lead: P waves 2.9 millivolts, impedance 883 ohms, threshold 1.2 volts at 0.5 milliseconds. 2. Right ventricular/left bundle lead: R waves 18.7 millivolts, impedance 826 ohms, threshold 0.4 volts at 0.5 milliseconds. FINAL PARAMETERS THROUGH THE DEVICE: 1. Right atrial lead: P waves 3.4 millivolts, impedance is 646 ohms, threshold 0.5 volts at 0.4 milliseconds. 2. Left bundle/RV lead: R waves 20 millivolts, impedance 855 ohms, threshold 0.5 volts at 0.4 milliseconds. FINAL PARAMETERS: MVP-R 60/120. Right atrial and right ventricular amplitude 3.5 volts, pulse width 0.4 milliseconds, sensitivity for the atrium 0.3 millivolts and right ventricle 0.9 millivolts. IMPRESSION: Successful implantation of a dual chamber rate responsive permanent pacemaker with the RV lead in the left bundle position along with intracardiac EGM mapping of the His bundle region under fluoroscopic guidance secondary to sick sinus syndrome and syncope. PLAN: Monitor the patient overnight with 12-lead ECG, chest x-ray. she cannot raise the left elbow over the shoulder for 1 month. She cannot lift more than 10 pounds with the left arm for 2 weeks. She could keep the dressing on and dry until her wound check next week. I attest to the content of the Intraoperative Record and any orders documented therein. Any exceptions are noted below. MTDD
== END 2020-01-09 10:27 | disposition home or self-care (01) ==
LOC: 2S 06:36 → EP 06:36

== ENCOUNTER 2021-11-16 05:07 | Observation (INO) ==
--- NOTE | 2021-10-29 16:37 | PAT Medication Instructions ---
Medication Instructions Date of Service October 29, 2021 Home Medications hydrochlorothiazide 25 mg tablet 12.5 mg PO QAM meclizine 12.5 mg tablet 12.5 mg PO TID PRN acetaminophen 500 mg capsule 1,000 mg PO Q6H PRN ascorbic acid (vitamin C) 500 mg tablet (Vitamin C) 500 mg PO QAM atorvastatin 20 mg tablet 20 mg PO QAM levothyroxine 100 mcg tablet 100 mcg PO QAM lisinopril 40 mg tablet 40 mg PO QAM metoprolol tartrate 25 mg tablet 25 mg PO BID multivitamin 1 tab PO QAM omeprazole 40 mg capsule,delayed release 40 mg PO QAM vitamin B complex 1 tab PO QAM albuterol sulfate 90 mcg/actuation aerosol inhaler 2 puff INHALATION Q6H PRN linagliptin 5 mg tablet (Tradjenta) 5 mg PO QAM octreotide acetate 50 mcg/mL injection solution (Sandostatin) 50 mcg SUBCUT UD DO NOT take the morning of surgery hydrochlorothiazide 25 mg tablet 12.5 mg PO QAM ascorbic acid (vitamin C) 500 mg tablet (Vitamin C) 500 mg PO QAM lisinopril 40 mg tablet 40 mg PO QAM multivitamin 1 tab PO QAM vitamin B complex 1 tab PO QAM linagliptin 5 mg tablet (Tradjenta) 5 mg PO QAM octreotide acetate 50 mcg/mL injection solution (Sandostatin) 50 mcg SUBCUT UD Take morning of surgery With a small sip of water, OTHERWISE NOTHING TO EAT OR DRINK AFTER MIDNIGHT: meclizine 12.5 mg tablet 12.5 mg PO TID PRN (if needed) acetaminophen 500 mg capsule 1,000 mg PO Q6H PRN (if needed) atorvastatin 20 mg tablet 20 mg PO QAM levothyroxine 100 mcg tablet 100 mcg PO QAM metoprolol tartrate 25 mg tablet 25 mg PO BID omeprazole 40 mg capsule,delayed release 40 mg PO QAM albuterol sulfate 90 mcg/actuation aerosol inhaler 2 puff INHALATION Q6H PRN (use if needed; please bring with you to hospital day of surgery if possible) Take evening before surgery meclizine 12.5 mg tablet 12.5 mg PO TID PRN (if needed) acetaminophen 500 mg capsule 1,000 mg PO Q6H PRN (if needed) metoprolol tartrate 25 mg tablet 25 mg PO BID albuterol sulfate 90 mcg/actuation aerosol inhaler 2 puff INHALATION Q6H PRN (if needed) Other Notes If you have any questions please call us at [phone] or [phone] or [phone] or [phone]
--- NOTE | 2021-11-02 11:06 | Anesthesiology Consultation ---
Date of Service November 02, 2021 Assessment & Plan (1) Encounter for pre-operative examination: - check BSG am DOS. mild to moderate - Case discussed with Dr. Breaux including cardiac history/echocardiogram findings, who advised patient is acceptable for neuraxial anesthesia and surgery overall. - cardio appt 07/09/21 and clearance 09/17/21 [facility]: "...mild to moderate aortic stenosis...preoperative nuclear stress test is normal...stable to proceed with hip replacement...estimated low risk of perioperative cardiac complication..." - Patient is to stay for overnight observation, pt states plans to again request going home same day with surgeon's office. I discussed with her concerns/safety issues regarding this and that from anesthesia standpoint she is not recommended outpatient joint candidate from our standpoint as well. She verbalized understanding. - COVID screening: Per assessment on 11/02/2021: Travel screen negative, no known COVID-19 positive contacts or current COVID-19 related symptoms in past 2 weeks. Pt vaccinated. Surgeon arranging preop COVID testing, scheduled 11/12/2021. Awaiting results. Chart Review Chart Review: Acceptable Risk for Surgery and Patient seen in Pre Admission Testing Teaching & Discussion Pre-Anesthesia Teaching/Discussion Notes: Instructed NPO after midnight before surgery, except medications with 15 cc of water. Medication instructions provided according to the PAT guidelines. History Surgery Operation Date: 11/16/21 12:30 Proposed Procedures p Right Total Hip Arthroplasty - Darrell Villagomez MD Height/Weight Height: 5 ft 2 in Weight: 87 kg Allergies Allergy/AdvReac Type Severity Reaction Status Date / Time bee venom protein (honey bee) Allergy Intermediate SWELLING Verified 10/29/21 08:22 Sulfa (Sulfonamide Allergy Intermediate RASH Verified 10/29/21 08:22 Antibiotics) Medications Home Medications Medication Instructions Recorded Confirmed Last Taken hydrochlorothiazide 25 mg tablet 12.5 mg PO QAM 01/08/20 10/29/21 12/16/20 meclizine 12.5 mg tablet 12.5 mg PO TID PRN 01/08/20 10/29/21 Unknown acetaminophen 500 mg capsule 1,000 mg PO Q6H PRN 12/16/20 10/29/21 12/15/20 1000 mg ascorbic acid (vitamin C) 500 mg 500 mg PO QAM 12/16/20 10/29/21 12/15/20 tablet (Vitamin C) atorvastatin 20 mg tablet 20 mg PO QAM 12/16/20 10/29/21 12/16/20 levothyroxine 100 mcg tablet 100 mcg PO QAM 12/16/20 10/29/21 12/16/20 lisinopril 40 mg tablet 40 mg PO QAM 12/16/20 10/29/21 12/16/20 metoprolol tartrate 25 mg tablet 25 mg PO BID 12/16/20 10/29/21 12/16/20 multivitamin 1 tab PO QAM 12/16/20 10/29/21 12/15/20 omeprazole 40 mg capsule,delayed 40 mg PO QAM 12/16/20 10/29/21 12/16/20 release vitamin B complex 1 tab PO QAM 12/16/20 10/29/21 12/15/20 albuterol sulfate 90 mcg/actuation 2 puff INHALATION Q6H PRN 12/21/20 10/29/21 Unknown aerosol inhaler linagliptin 5 mg tablet (Tradjenta) 5 mg PO QAM 10/29/21 10/29/21 Unknown octreotide acetate 50 mcg/mL 50 mcg SUBCUT UD 10/29/21 10/29/21 Unknown injection solution (Sandostatin) Additional Notes: Pt states sandostatin injection is monthly and next scheduled for a week after surgery. Past Medical History Medical History (Updated 11/02/21 @ 16:57 by Shana Piedra PA-C) Aortic stenosis mild to moderate CKD (chronic kidney disease) stage 3, GFR 30-59 ml/min Cr 1.3-1.7 over past 7 months History of bleeding ulcers >3.5 YRS AGO History of COVID-19 05/24- FATIGUE, no other symptoms, no hospitalization Hyperlipidemia Hypertension controlled, stable per pt Hypothyroidism Iron deficiency anemia following with [facility] heme/onc Myocardial Infarction silent CO per pt, denies when first detected Pacemaker d/t bradycardia/syncope, Medtronic, follows with [facility] cardio Primary neuroendocrine carcinoma of duodenum following with [facility] heme/onc Primary pancreatic neuroendocrine tumor following with [facility] heme/onc Sensorineural hearing loss (SNHL) of both ears Type 2 diabetes mellitus NIDDM Patient denies h/o stroke, seizures, heart failure, blood clots or blood frank sfusions. Exercise / Class Metabolic Activity II 4-5 Yardwork/Stairs/Walk up hill (denies CP or SOB with 1 FOS) Past Family History Family History Other Allergies No family history of bleeding disorder Denies family history of Hearing loss Heart disease Cancer Hypertension Stroke Asthma Past Surgical History Surgical History (Updated 11/03/21 @ 08:37 by Shana Piedra PA-C) History of cardiac cath >10 YRS AGO- [facility]- DOES NOT REMEMBER WHY- NO STENT History of knee replacement BILAT Hx of esophagogastroduodenoscopy Previous back surgery >11 YEARS AGO- [facility]: pt states upon induction felt "unusual" (unable to further describe) and woke up with sales representative rural power and anesthesiologist checking on her-suspects was bradycardia prior to pacemaker placement; reports no additional issues/episodes; no available records S/P colonoscopy Past Anesthesia History No Hx of Anesthesia Complications and No Family Hx of Anesthesia Complications History of PONV No Hx of PONV and No Hx of Motion Sickness Social History Smoking Status: Never smoker Do You Dip or Chew Tobacco: No Hx Alcohol Use: No Hx Substance Use: No substance use type: does not use Review of Systems Intermittent cough with seasonal allergies, chronic, denies change or worsening. Patient denies chest pain, shortness of breath, dyspnea on exertion, snoring, witnessed apneas, reflux, fever, chills, wheezing, or palpitations. Physical Exam Vital Signs Vitals BP 105/67 P 63 TEMP 98.3 SP02 97% on RA RESP 16 Physical Full cervical extension range of motion without pain TMD 3.5 finger breaths Mallampati Score 3 Dentition: edentulous-full upper and lower dentures Lungs: normal respiratory effort. Clear throughout to auscultation, no adventitious breath sounds Cardiac: regular rate and rhythm, no murmurs noted Carotid arteries: negative bruit bilat Lab Results Anesthesia Preop Results Results Anesthesia Widget: WBC 9.24 K/uL (4.8-10.8) 11/02/21 Hgb 12.7 g/dL (12.0-16.0) 11/02/21 Hct 40.3 % (37-47) 11/02/21 Plt 204 K/uL (130-400) 11/02/21 Na 136 mmol/L (136-145) 11/02/21 K 4.6 mmol/L (3.5-5.1) 11/02/21 Cl 102 mmol/L (98-107) 11/02/21 CO2 29 mmol/L (21-32) 11/02/21 BUN 56 mg/dl (6-23) H 11/02/21 Creat 1.50 mg/dl (0.6-1.2) H 11/02/21 Glucose Level 122 mg/dl (70-99(Fasting)) H 11/02/21 PT 10.9 Seconds (9.0-12.0) 11/02/21 PTT 31.4 Seconds (21.0-31.0) H 11/02/21 INR 1.0 (0.9-1.1) 11/02/21 Blood Type O Positive 11/02/21 Antibody Screen NEGATIVE 11/02/21 Testing Laboratory Results CKD, III with Cr range 1.3-1.7 over past 6 months A1c 7.3% Electrocardiogram Date: 07/09/21 Atrial paced rhythm with prolonged AV conduction, rate 60 bpm Left axis deviation High QRS voltage may be normal variant or due to lve anterior infarct, age undetermined Chest X-Ray Date: 11/02/21 There is a left-sided dual-chamber pacemaker. Partially visualized lumbar spinal fusion hardware is noted. No pneumothorax. No pleural effusions. The heart is mildly enlarged. This remains unchanged. No new focal lung consolidations to suggest pneumonia. No evidence for pulmonary edema. Moderate degenerative changes within the thoracic spine. IMPRESSION: Stable mild cardiomegaly. Otherwise, no acute process within the chest. Echocardiogram Date: 11/09/20 EF 55-59% Moderate cLVH Normal LV wall motion Grade I diastolic dysfunction Mild to moderate aortic stenosis Mild enlargement ascending thoracic aorta Stress Test Date: 09/16/21 Pharmacologic MPHR 59% Negative for ischemia EF 70% Other Testing Pacer check 10/20/21 Blazent Presenting rhythm: atrial paced Pacing burden: atrial-95%, RV-21% PVC singles: 6/ hour in a 90 day period "this is stable" Mode: AAIR<=>DDDR Normal pacemaker function
--- NOTE | 2021-11-12 17:52 | History and Physical Report ---
DATE OF SERVICE: 11/16/2021 CHIEF COMPLAINT: Right hip pain. HISTORY OF PRESENT ILLNESS: The patient is an 85-year-old female from [place] who presents for schroeder rgical treatment of her right hip. She has about a 12-15 month history of markedly increasing right hip pain and discomfort. She felt she initially injured her groin muscle, but it has never gotten be tter. As the time has gone on, she has developed increased pain in her groin and thigh. It radiates down into her knee, but no further. She limps and limps terribly. She refused to use a cane. Her leg does give out intermittently. She is well known to me as I have operated and done a knee replace ment on her and hip replacement on her daughter. She would like to get her hip fixed. Of note, the patient has had both her knees replaced by Dr. Qureshi about 20 years ago and then seeme d to be doing pretty well. She had back surgery by Dr. Melgoza. PAST MEDICAL HISTORY: Significant for, 1. Coronary artery disease, followed by [facility], specifically Dr. Sparks. 2. Diabetes. 3. Arthritis. 4. Hypothyroidism. 5. Hypertension. 6. Stomach cancer. 7. Pancreatic cancer. PAST SURGICAL HISTORY: Includes, 1. Bilateral knee replacements done by Dr. Qureshi 20 years ago. 2. Back surgery. 3. Pacemaker surgery. ALLERGIES: SULFA AND BEE STINGS. CURRENT MEDICATIONS: Include, 1. Tylenol. 2. Aspirin. 3. Atorvastatin. 4. Diclofenac topical gel. 5. Hydrochlorothiazide. 6. Hydrocodone. 7. Levothyroxine. 8. Lisinopril. 9. Meclizine. 10. Metoprolol. 11. Omeprazole. 12. Vitamin C. 13. Vitamin D. 14. Cancer treatment. SOCIAL HISTORY: Significant for an 85-year-old female. She is from [place]. She is . Med [facility] doctor is Dr. Mitchell, tack puller machine is Dr. Sparks. FAMILY HISTORY: Noncontributory. REVIEW OF SYSTEMS: Significant for significant heart history, but she had a recent stress test and c leared for surgery. No ischemia. She is diabetic. No chest pain or shortness of breath. PHYSICAL EXAMINATION: GENERAL: Shows a pleasant, elderly female. Looks to be in reasonably good health. HEENT: Benign. NECK: Supple. No lymphadenopathy. LUNGS: Clear to auscultation. HEART: Regular rate and rhythm. ABDOMEN: Soft, nontender, nondistended. EXTREMITIES: Grossly neurovascularly intact except as follows: Examination of the right hip reveals the patient walks with a markedly antalgic gait. She limps on this right side. Leg lengths are pre tty equal. She has a very stiff hip with internal rotation to -10. Negative straight leg raise. No knee effusion. She is neurologically intact. X-RAYS: X-rays of the right hip are reviewed. It shows advanced right hip DJD. She has got fairly concentric disease. She has got complete loss of her joint space. ASSESSMENT: An 85-year-old female status post bilateral knee replacements with a significant cardiac history, but stable, with advanced right hip arthritis. She has failed conservative treatment and w ould like to have her right hip replaced. The patient has been seen by Dr. Sparks. She had a nuclear stress test, which was normal. She has been cleared for surgery. PLAN: We will plan on doing an uncemented stem, but we will have a cemented stem as a backup. She i s hoping to be discharged to home using [facility] program. She knows to take her metopro lol on the morning of surgery with a sip of water along with the omeprazole. Hold the lisinopril. Job ID: [id number]
[2021-11-16] MEDS ORDERED: ceFAZolin 2000MG 2,000 MG/15 ML SYR IV SCH (06:00)
[2021-11-16] MEDS ORDERED: METOCLOPRAMIDE HCL 10 MG TABLET PO SCH (06:00)
[2021-11-16] MEDS ORDERED: FAMOTIDINE 20 MG TAB PO SCH (06:00)
[2021-11-16] MEDS ORDERED: CeleBREX 200 MG CAP PO SCH (06:00)
[2021-11-16] MEDS ORDERED: TRANEXAMIC ACID 1,000 MG **IV Pre-op IV SCH (06:00)
[2021-11-16] MEDS ORDERED: SODIUM CHLORIDE 0.9% 1,000 ML IV SCH (06:00)
[2021-11-16] MEDS ORDERED: ACETAMINOPHEN 500 MG TAB PO SCH (06:00)
[2021-11-16] MEDS ORDERED: LR 60ML/HR IV SCH (06:00)
[2021-11-16] MEDS ORDERED: MIDAZOLAM HCL 1 MG/ML 2ML VIAL ONE (06:12)
[2021-11-16] MEDS ORDERED: BUPIVACAINE 0.5 % 5 MG/1 ML PF 10ML VIAL ONE (06:24)
[2021-11-16] MEDS ORDERED: EPINEPHrine INJ 1 MG/ML AMP ONE (06:35)
[2021-11-16] MEDS ORDERED: BUPIVACAINE 0.5 % 5 MG/1 ML MPF 30ML VIAL ONE ×2 (06:35→07:56)
--- NOTE | 2021-11-16 06:56 | History & Physical Bridge Note ---
Date of Service November 16, 2021 History & Physical Bridge Note I have examined the patient, reviewed the History & Physical and in the interval since the performance of the History & Physical I have noted the following changes of clinical significance: no changes noted
[2021-11-16] MEDS ORDERED: LIDOCAINE 2% 2 ML VIAL/AMP(20MG/ML) INFIL ONE (07:02)
[2021-11-16] MEDS ORDERED: ROCURONIUM BROMIDE 10 MG/ML 5 ML VIAL IV ONE (07:02)
[2021-11-16] MEDS ORDERED: PROPOFOL IV EMULSION 10 MG/ML 20 ML VIAL IV ONE (07:02)
[2021-11-16] MEDS ORDERED: fentaNYL citrate 100 MCG/2 ML VIAL ONE ×2 (07:05→07:47)
[2021-11-16] MEDS ORDERED: GLYCOPYRROLATE 0.2 MG/ML VIAL ONE (07:18)
[2021-11-16] MEDS ORDERED: DEXAMETHASONE SOD INJ 4 MG/ML VIAL ONE (07:18)
[2021-11-16] MEDS ORDERED: ONDANSETRON INJ 2 MG/ML 2 ML VIAL ONE (07:18)
[2021-11-16] MEDS ORDERED: SUGAMMADEX SODIUM 200 MG/2 ML VIAL IV ONE (07:21)
[2021-11-16] MEDS ORDERED: PHENYLEPHRINE HCL 10 MG/ML VIAL ONE (07:27)
[2021-11-16] MEDS ORDERED: ATROPINE SULFATE 0.1 MG/ML 10ML SYR IV PRN (08:08)
[2021-11-16] MEDS ORDERED: fentaNYL citrate 100 MCG/2 ML VIAL IV PRN (08:08)
[2021-11-16] MEDS ORDERED: ONDANSETRON INJ 2 MG/ML 2 ML VIAL IV PRN ×2 (08:08→10:45)
[2021-11-16] MEDS ORDERED: ePHEDrine sulfate 50 MG/ML AMP IV PRN (08:08)
--- NOTE | 2021-11-16 08:55 | Operative Report ---
PG Post Operative Report Pre & Post Diagnosis Operation Date: 11/16/21 07:00 Pre-Op Diagnosis: Right Hip Advanced Degenerative Joint Disease Post-Op Diagnosis: Right Hip Advanced Degenerative Joint Disease and chronic right hip abductor avulsion I identified the patient and participated in the time-out.: Yes Procedure Operation Date: 11/16/21 07:00 Actual Procedures p Right Total Hip Arthroplasty--Uncemented with Right hip abductor Repair(Right) - Darrell Villagomez MD Surgeon Darrell Villagomez MD Beer Coil Cleaner The RYAN Donnelly Estimated Blood Loss 200 Findings Consistent with Post-Op Diagnosis Operative findings revealed advanced right hip DJD. She had a grade 4 [id number] disease of the femoral head and acetabulum. Not much in way of osteophyte formation. She did have a moderate-sized joint effusion. She had a chronic right hip abductor avulsion. Fluids 200 cc Specimens right femoral head sent for pathology Drains None Anesthesia Type General Complications none Disposition Accompanied Patient To Recovery: Yes Indications Patient is an 85-year-old female has had a 1 year history of markedly increased right hip pain discomfort became very debilitating over time. X-rays show progressive hip arthritis. She failed conservative measures. She elected proceed with total hip arthroplasty. Description of Procedure Operative implants consist of: 1 Biomet G7 size 48 mm acetabular shell. 2. Ruston hole senior power scheduler. 3. 6.5 cancellous acetabular screws 1 of 35 mm length 125 mm length. 4. Highly cross-linked polyethylene liner with a 48 mm outer diameter 32 mm inner diameter. 5. DePuy coli size 12 standard femoral stem. 6. +1/32 mm ceramic articular ball. 7. Biomet juggernaut anchor x1. The patient was taken to the operating, identified, and placed on the operating table supine position protectors were properly padded. IV antibiotics tried by anesthesia team. A spinal anesthetic and been implemented the holding area but failed. Therefore a general anesthetic was implemented. A Amato cath was placed in sterile fashion. The patient was then placed in the left lateral cubitus position. Axillary roll was placed. A Stulberg hip positioner was used for positioning. The right hip and leg were then prepped and draped in usual sterile fashion. A posterior lateral approach to the right hip was then performed to a curvilinear incision centered over the greater trochanter. Sharp dissection was carried through subcutaneous this down to the IT band gluteal fascia the IT band gluteal fascia incised longitudinally in line with skin incision. The underlying greater bursa was excised. The piriformis and external rotators were tagged and taken off the posterior aspect hip joint capsule. Great care was taken throughout the procedure to protect the sciatic nerve at all times. A posterior capsulotomy was then performed leaving a large flap for later repair. Hip was internally rotated and dislocated. A femoral neck osteotomy cut was made with a Final Cut 15 mm above the lesser trochanter. Femoral head was removed and sent for pathology. The femur was retracted anteriorly. Attention drawn the acetabulum. The acetabular labrum was excised. The pulmonary fat was excised. Sequential reaming the acetabular was then performed begin the size 43 and progressing up to 47 port. We got pretty good fit there. 40 reamer was then used and a 48 mm Biomet G7 acetabular shell was then placed in about 40 degrees lateral opening and 20 degrees of anteversion. It was fixed with two 6.5 cancellous acetabular screws. Trial liner was placed. Attention drawn the femur. The proximal femur was entered with a cookie cutter followed by canal finder. I was initially planning on placing a cemented stem but her cancellous bone envelope was extremely good. Therefore we elected proceed with the uncemented implant. I broached begin the size 8 and progressed up to 12. Got excellent fit of the 12. Did quite sit down the calcar. We then trialed the hip. The +5 articular ball was fully stable but just seemed a little bit tight soft tissue erazo. We placed the +1 articular ball which recreated the leg lengths and soft tissue tension appropriately. Fully stable. Attention drawn to placing the permanent implants. Nupathe all trial implants were removed. An apex hole senior power scheduler was placed. Highly cross-linked polyethylene liner was placed. A DePuy size 12 standard femoral stem was impacted in position. Once again it was just left a little bit proud. A +1/32 mm ceramic articular ball was placed. Hip was relocated and found to be stable. Attention drawn toward closing. The wound was irrigated scopes also pulsatile lavage solution. We did inject locally with 60 cc of 5% Marcaine with epinephrine. The posterior capsule and external rotators were then repaired through drill holes in the posterior trochanter with #2 Tycron suture. I then scuffed up the abductor/greater trochanter area/insertion area. I then placed a single juggernaut anchor. Once set of sutures were placed in the anterior hip abductors and a second set placed through the superior and posterior tendon. I tied these down. I then reinforced this with a #1 Vicryl. The IT band gluteal fascia then closed with #1 PDS suture running fashion the subcutaneous tissue then closed 2 layers the deep layer #2 Vicryl suture in the subcutaneous tissues with 2-0 Dexon suture. The skin was then closed with skin ariel. The leg was then cleaned and dried and sterile dressed with Xeroform, 4 x 4's, ABD pad, foam tape was applied. The patient then brought out of general anesthesia and transferred to the recovery room in stable condition. Patient tolerated the procedure well and there were no complications. Christopher Donnelly, my physician internet marketing assistant, was present for the entire procedure. His assistance was essential and required for appropriate patient positioning, prepping and draping, surgical exposure, performing the technical details of the operation, placement the implants, closure of the wound, and placement of the s terile bandage. I attest to the content of the Intraoperative Record and any orders documented therein. Any exceptions are noted below.
--- NOTE | 2021-11-16 09:13 | XRay Report ---
XR hip 1V RT w pelvis CLINICAL HISTORY: IN PACU - A/P PELVIS and LATERAL HIP . Status post total hip replacement COMPARISON STUDY: No previous studies for comparison. TECHNIQUE: 2 right hip views FINDINGS: The patient is status post total hip replacement. The prosthetic components are in anatomic alignment with no acute abnormality seen. Skin ariel are seen from the recent procedure. IMPRESSION: 1. Status post total hip replacement ACT 112: Negative or not required by law. Electronically signed by: Arun Drake M.D. 11/16/2021 9:12 AM
--- NOTE | 2021-11-16 09:44 | Anesthesiology Progress Note ---
Date of Service November 16, 2021 Anesthesia Post Procedure Vital Signs Vital Signs: Temp Pulse Pulse Resp BP Pulse Ox 11/16/21 09:40 60 18 155/85 H 96 11/16/21 09:30 36.0 C L 61 24 148/70 H 97 11/16/21 09:20 36.0 C L 60 15 164/74 H 98 11/16/21 09:10 60 22 129/73 100 11/16/21 09:00 61 20 135/48 L 98 11/16/21 08:50 62 15 151/74 H 100 11/16/21 08:42 36.4 C L 62 14 174/76 H 100 11/16/21 05:54 37 C 73 18 168/82 H 95 Transfer of Care Handoff Completed per policy Notes Mental Status: alert / awake / arousable Patient Amnestic to Procedure: Yes Nausea / Vomiting: adequately controlled Pain: adequately controlled Airway Patency, RR, SpO2: stable & adequate BP & HR: stable & adequate Hydration State: stable & adequate Anesthetic Complications: no major complications apparent
[2021-11-16] MEDS ORDERED: METOCLOPRAMIDE HCL INJ 5 MG/ML 2 ML VIAL IV PRN (10:45)
[2021-11-16] MEDS ORDERED: bisacodyL 10 MG SUPP PR PRN (10:45)
[2021-11-16] MEDS ORDERED: NALOXONE HCL 0.4 MG/1 ML VIAL/CARP IV PRN (10:45)
[2021-11-16] MEDS ORDERED: OCTREOTIDE ACETATE SQ SCH (10:45)
[2021-11-16] MEDS ORDERED: GLUCAGON FOR INJ 1 MG VIAL SQ PRN (10:45)
[2021-11-16] MEDS ORDERED: HYDROmorphone INJ 0.5 MG/0.5 ML SYR IV PRN (10:45)
[2021-11-16] MEDS ORDERED: CARBOHYDRATES FOR HYPOGLYCEMIA PO PRN (10:45)
[2021-11-16] MEDS ORDERED: DOCUSATE SODIUM/SENNA 50/8.6MG TAB PO SCH (10:45)
[2021-11-16] MEDS ORDERED: MULTIVITAMIN TAB PO SCH (10:45)
[2021-11-16] MEDS ORDERED: GLUCOSE 40% GEL 15 GM TUBE PO PRN (10:45)
[2021-11-16] MEDS ORDERED: ALUMINUM/MAGNESIUM SUSP 30 ML UDC PO PRN (10:45)
[2021-11-16] MEDS ORDERED: PHARMACY GLYCEMIC MGMT CONSULT PRN (10:45)
[2021-11-16] MEDS ORDERED: DEXTROSE 50% 50 ML SYRINGE IV PRN (10:45)
[2021-11-16] MEDS ORDERED: MAGNESIUM HYDROXIDE SUSP 30 ML UDC PO PRN (10:45)
[2021-11-16] MEDS ORDERED: GLUCOSE 10 TABS/TUBE PO PRN (10:45)
[2021-11-16] MEDS ORDERED: MECLIZINE 12.5 MG TAB PO PRN (10:45)
[2021-11-16] MEDS ORDERED: ALBUTEROL HFA 8 GM INHALER INH PRN (10:45)
[2021-11-16] MEDS ORDERED: traMADol HCL 50 MG TABLET PO PRN (10:45)
[2021-11-16] MEDS: SODIUM CHLORIDE 0.9% 1000ML 1,000 ML IV SCH ×2 (11:42→22:24)
[2021-11-16] MEDS ORDERED: LANTUS PER UNIT CHARGE SQ ONE (11:45)
[2021-11-16] MEDS: ASPIRIN 81 MG ECTAB PO SCH ×2 (11:48→21:04)
[2021-11-16] MEDS: ASCORBIC ACID 500 MG TAB PO SCH (11:48)
[2021-11-16] MEDS: ATORVASTATIN 20 MG TAB PO SCH (11:48)
[2021-11-16] MEDS: DOCUSATE SODIUM 100 MG CAP PO SCH ×2 (11:48→21:03)
--- NOTE | 2021-11-16 11:48 | Pharmacy Report ---
Pharmacy Glycemic Short Note 2 - Date of Service November 16, 2021 - Glycemic Short BSG Results (Last 24 hours): 11/16/21 11/16/21 11/16/21 05:35 09:13 11:33 POC Glucose 139 H 145 H 141 H OUTPATIENT ANTIDIABETIC REGIMEN: * Linagliptin 5 mg PO daily * HbA1c ordered for 11/17/21 ASSESSMENT: * SS is an 85 year old female POD #0 s/p right total hip arthroplasty * Received 4 mg IV dexamethasone in OR * Preop BSG of 139 mg/dL, postop BSG of 141 mg/dL * Will give one-time conservative Lantus dose (in light of age) with aggressive Novolog parameters for day 1 (in light of steroids) PLAN FOR INPATIENT GLYCEMIC CONTROL: * Hold outpatient oral diabetes medications * consider restarting tomorrow AM * Basal insulin * Lantus 10 units SC daily (~0.1 unit/kg) * Bolus insulin * NovoLog per scale ACHS or Q6hrs while NPO * Goal Range: Low 110 mg/dL - High 140 mg/dL * Correction Factor: 20 mg/dL/unit * Nutritional / Prandial insulin per carb ratio of 1 unit per 7 grams CHO consumed
[2021-11-16] MEDS: LEVOTHYROXINE SODIUM 100 MCG TABLET PO SCH (11:49)
[2021-11-16] MEDS: hydroCHLOROthiazide 25 MG TAB PO SCH (11:49)
[2021-11-16] MEDS: lisinopril 40 MG TAB PO SCH (11:49)
[2021-11-16] MEDS: METOPROLOL TARTRATE 25 MG TAB PO SCH ×2 (11:49→21:03)
[2021-11-16] MEDS: INSULIN ASPART PER UNIT SC SCH ×3 (11:56→21:13)
[2021-11-16] MEDS: ACETAMINOPHEN 500 MG TAB PO SCH ×2 (13:49→21:03)
[2021-11-16] MEDS: ceFAZolin 2000MG 2,000 MG/15 ML SYR IV SCH ×2 (14:44→21:57)
[2021-11-16] MEDS ORDERED: TRANEXAMIC ACID / 0.7% NACL 1,000 MG/100 ML BAG IV SCH (14:45)
[2021-11-16] MEDS ORDERED: SENNA 8.6 MG TAB PO SCH (21:00)
[2021-11-17] MEDS: LEVOTHYROXINE SODIUM 100 MCG TABLET PO SCH (06:07)
[2021-11-17] MEDS: ACETAMINOPHEN 500 MG TAB PO SCH ×2 (06:07→14:55)
[2021-11-17 06:25] LABS: Basophils # (auto) 0.01 K/uL (0-0.2); Basophils % (auto) 0.1 %; Eosinophils # (auto) 0.02 K/uL (0-0.5); Eosinophils % (auto) 0.2 %; Hematocrit (blood only) 34.1 % (37-47); Hemoglobin 11.2 g/dL (12.0-16.0); Immature Granulocytes # (auto) 0.04 K/uL (0.00-0.02); Immature Granulocytes % (auto) 0.3 %; Lymphocytes # (auto) 0.97 K/uL (1.2-3.4); Lymphocytes % (auto) 7.5 %; Mean Corpuscular Hemoglobin 29.7 pg (25-34); Mean Corpuscular Hgb Conc 32.8 g/dL (32-36); Mean Corpuscular Volume 90.5 fL (80-100); Mean Platelet Volume 10.7 fL (7.4-10.4); Monocytes % (auto) 7.7 %; Neutrophils # (auto) 10.92 K/uL (1.4-6.5); Neutrophils % (auto) 84.2 %; Platelet Count 147 K/uL (130-400); RDW Coefficient of Variation 14.3 % (11.5-14.5); RDW Standard Deviation 47.6 fL (36.4-46.3); Red Blood Count 3.77 M/uL (4.2-5.4); White Blood Count 12.96 K/uL (4.8-10.8)
[2021-11-17 06:48] LABS: BUN Creatinine Ratio 21.6 (10-20); Calcium 8.9 mg/dl (8.5-10.1); Creatinine Clr Calc Pharmacy 31.5 ml/min; Est GFR (African American) 40.5 ml/min; Potassium 4.3 mmol/L (3.5-5.1)
[2021-11-17 07:32] LABS: Estimated Average Glucose 157 mg/dl; Hemoglobin A1C 7.1 % (4.5-5.6)
[2021-11-17] MEDS: hydroCHLOROthiazide 25 MG TAB PO SCH (08:06)
[2021-11-17] MEDS: METOPROLOL TARTRATE 25 MG TAB PO SCH (08:06)
[2021-11-17] MEDS: lisinopril 40 MG TAB PO SCH (08:06)
[2021-11-17] MEDS: ASCORBIC ACID 500 MG TAB PO SCH (08:07)
[2021-11-17] MEDS: ATORVASTATIN 20 MG TAB PO SCH (08:07)
[2021-11-17] MEDS: DOCUSATE SODIUM 100 MG CAP PO SCH (08:07)
[2021-11-17] MEDS: ASPIRIN 81 MG ECTAB PO SCH (08:07)
[2021-11-17] MEDS ORDERED: VITAMIN B COMPLEX TAB PO SCH (09:00)
[2021-11-17] MEDS ORDERED: MULTIVITAMIN TAB PO SCH (09:00)
[2021-11-17] MEDS ORDERED: PANTOprazole 40 MG TAB PO SCH (09:00)
[2021-11-17] MEDS: INSULIN ASPART PER UNIT SC SCH ×2 (09:21→14:29)
--- NOTE | 2021-11-17 14:22 | Orthopedic Progress Note ---
Date of Service November 17, 2021 Assessment & Plan (1) S/P total right hip arthroplasty: She was seen and examined by Dr. Villagomez. Pain controlled. Would like to go home today and states that she has help at home. We will discharge her home today with home health. They can change her dressing tomorrow POD#2 She'll continue PT/OT WBAT, total hip precautions. Aspirin BID for dvt prophylaxis. Subjective . 85 year old patient POD #1 from right KENNY. Doing well. Minimal hip pain. No other complaints. She states she is ready to go home. Review of Systems All systems reviewed & are unremarkable except as noted in HPI & below. Physical Exam .alert and oriented. NAD Sitting in bedside chair. right leg aligned well. Able to dorsiflex and p lantarflex. Dressing clean and intact. NVI Results & Data Results & Data Laboratory Results . Diagnostic Findings . PG Care Time/CCT Total # of Minutes Spent Total Time Spent with Patient: Total time spent is greater than 50% in coordination of care (as documented) at patient's floor/unit and/or counseling patient: Coding Level of Care Code 55770 Post Operative Follow-Up Diagnoses S/P total right hip arthroplasty Z96.641
== END 2021-11-17 17:21 | disposition home health service (06) ==
LOC: ASU 05:07 → 3N 05:07

== ENCOUNTER 2023-06-11 13:16 | Inpatient (IN) ==
--- OUTSIDE RECORDS SUMMARY | 2023-06-11 13:21 | External Medical Summary | Summary of Care ---
Author Name Unknown Organization [facility] Address [address] [place] [address] Phone [phone] Care Team Providers Care Jewelry Manager Name Role Phone Tania Orlando DO Primary Care Provider [phone] Reason for Visit * Reason Onset Date Comments Medication Refill 06/06/2023 Encounter Details Date Type Department Care Team (Late st Contact Info) Description 06/06/2023 Refill [facility] [address] [place] [facility] [place] [address] Tania Orlando DO [address] [place] [address] Generalized OA; Osteoarthritis of multiple joints, unspecified osteoarthritis type Allergies Active Allergy Reactions Criticality Noted Date Comments Bee Venom Abdominal pain,Edema face/lips/tongue High 02/17/2011 Sulfa Antibiotics Rash Medium 12/26/2007 documented as of this encounter (statuses as of 06/07/2023) Medications Medication Sig Dispensed Refills Start Date End Date Status ASPIRIN 81 MG PO TABS one a day 0 Active ONETOUCH ULTRASOFT LANCETS MISC Use one time a day in the morning. E11.9 1 Box Dosing Unit 11 07/19/2018 Active Vitamin D (Cholecalciferol) 10 MCG (400 UNIT) Oral Tablet Chewable Take 1 Tablet by mouth in the morning. 0 Active Vitamin C 100 MG Oral Tablet Chewable Take 1 Tablet by mouth in the morning. 0 Active Adult Gummy Oral Tablet Chewable Take 2 Each by mouth daily. 0 Active Acetaminophen 500 MG Oral Tablet (Tylenol) Take 1 Tablet by mouth every 6 hours as needed. 0 Active Metoprolol Tartrate 25 MG Oral Tablet (Lopressor)Indicati ons:HTN, goal below 130/80,Tachy-bryn syndrome (HCC) TAKE 1 TABLET BY MOUTH TWICE DAILY 180 Tablet 3 09/02/2022 Active OneTouch Verio In Vitro Strip (Glucose Blood) use as directed to test blood sugar once a day 100 Strip 2 02/01/2023 Active Atorvastatin Calcium 20 MG Oral Tablet (Lipitor)Indication s:Dyslipidemia, goal LDL below 100 TAKE 1 TABLET BY MOUTH ONCE DAILY 90 Tablet 1 04/03/2023 Active Levothyroxine Sodium 100 MCG Oral Tablet (Levoxyl)Indication s:Hypothyroidism take 1 tablet by mouth once daily at least 30 minutes before breakfast or any other medications 90 Tablet 1 04/12/2023 Active Lisinopril 40 MG Oral TabletIndications:H TN, goal below 130/80 TAKE 1 TABLET BY MOUTH ONCE DAILY 90 Tablet 1 05/10/2023 Active Omeprazole 40 MG Oral Capsule Delayed Release (PriLOSEC)Indicatio ns:Hx of gastric ulcer TAKE 1 CAPSULE BY MOUTH ONCE DAILY 1 hour before the first meal of the day 90 Capsule 3 05/24/2023 Active Furosemide 20 MG Oral Tablet (Lasix) Take 1 Tablet by mouth in the morning. Or as directed by cardiology.. 45 Tablet 11 05/24/2023 Active HYDROcodone-Acetami nophen 5-325 MG Oral TabletIndications:G eneralized OA,Osteoarthritis of multiple joints, unspecified osteoarthritis type Take 1 Tablet by mouth every 6 hours as needed for Pain, Mild. 30 Tablet 0 06/07/2023 Active HYDROcodone-Acetami nophen 5-325 MG Oral TabletIndications:G eneralized OA,Osteoarthritis of multiple joints, unspecified osteoarthritis type Take 1 Tablet by mouth every 6 hours as needed for Pain, Mild. 30 Tablet 0 05/10/2023 06/06/19 24 Discontinu ed(Refill) documented as of this encounter (statuses as of 06/07/2023) Active Problems Problem Noted Date Diagnosed Date S/P TAVR (transcatheter aortic valve replacement ) 04/07/2023 Diabetic peripheral neuropathy 12/08/2022 Aortic valve stenosis, severe 12/08/2022 Tachy-bryn syndrome 12/08/2022 Cardiac pacemaker in situ 11/15/2021 Chronic kidney disease, stage 3b 10/13/2020 Overview: Per CKD protocol Hypertensive kidney disease with stage 3b chronic kidney disease 04/13/2020 Overview: Per CKD protocol Type 2 diabetes mellitus wit h stage 3b chronic kidney disease, without long-term current use of insulin 10/22/2018 Overview: Per CKD protocol 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 disease, with long-term current use of insulin 10/13/2020 12/08/2022 Overview: Per CKD protocol Aortic valve stenosis, moderate 11/29/2019 12/08/2022 Sicca syndrome 10/22/2018 02/16/2023 Diabetes mellitus without complication 07/19/2018 10/22/2018 Hypertensive kidney disease with chronic kidney disease stage III 04/18/2018 04/16/2020 Overview: Per CKD protocol Hx of gastric ulcer 10/16/2017 08/09/19 19 Mild aortic valve stenosis 08/14/2017 0 11/29/2019 Gastric ulcer 03/16/2017 10/16/2017 Schatzki's ring of distal esophagus 03/16/2017 10/16/2017 Generalized edema 06/08/2016 07/19/2018 Bronchitis, complicated 08/01/201410/03 Kidney disease, chronic, sta ge III (GFR 30-59 ml/min) 07/29/2013 05/18/2018 Overview: Per CKD protocol #1 Coronary artery disease (CAD) excluded 10/04/2012 08/08/2018 Overview: Negative cardiac catheterization 09/2012 Actinic keratosis 08/27/2012 04/18/2018 SOB (shortness of breath) on exertion 08/27/2012 04/18/2018 History of basal cell carcinoma 08/25/2011 04/18/2018 Chest pain 03/25/2010 06/08/2016 Preoperative cardiovascular examination 03/25/2010 10/04/2012 Undiagnosed cardiac murmurs 03/25/2010 02/24/2012 Dyslipidemia, goal to be determined 03/25/2010 10/04/2012 Sicca syndrome 12/26/2008 10/16/2017 Pulsatile tinnitus 12/31/2007 8 Temporomandibular joint diso rders, unspecified 12/08/2006 08/14/2017 Overview: Dr. De La Rosa Vertigo 12/08/2006 10/16/2017 Overview: Dr. De La Rosa Chronic rhinitis 12/08/2006 10/16/2017 Overview: Dr. De La Rosa documented as of this encounter (statuses as of 06/07/2023) Immunizations Name Administration Dates Next Due COVID-19 mRNA, LNP-s, No Pre serve, 2-Dose Series (At[employer] Re[employer]) 10/01/2021,05/05/2021,09/10/2020,08/03 Covid-19, Mrna, Lnp-s, Pf, B ivalent, 30 Mcg, IM, 12 yrs and above (Atomic Reach) 05/10/2022 Pneumococcal Conjugate Vacc, 13 Valent (Prevnar) 06/24/2015 Pneumococcal Polysaccharide PPV23 (Pneumovax) 04/29/2013 Season Influenza, Cell Cultu re, 18+ Yrs, With Preserv (Flucelvax) 06/14/2013 Season Influenza, Quad, PF, Adjuvanted, 65+ Yrs, IM (FLUAD) 04/09/2020 Seasonal Influenza, PF, 6 M & above, IM , (FluLaval or Fluzone) 05/03/2019,04/18/2018,07/14/2017 05/03/2020 Seasonal Influenza, Quadriva lent Hd (Fluzone Hd) 02/16/2023,04/15/2022,03/18/2021 Seasonal Influenza, Quadriva lent, No Preserve, IM 05/09/2016,03/17/2015 05/09/2017 Seasonal Influenza, Split, I IV3, With Preserve, Inj 02/26/2014 Varicella Zoster Vaccine (Adult) 05/09/2014 Zoster Vaccine Recombinant (Shingrix) 07/19/2018 ,01/31/2018 documented as of this encounter Social History Tobacco Use Types Packs/Day Years Used Date Smoking Tobacco: Never Passive Smoke Exposure: Never Smokeless Tobacco: Never Alcohol Use Standard Drinks/Week Comments No 0 (1 standard drink = 0.6 oz pur e alcohol) PHQ-2 Answer Date Recorded PHQ Adult Total Score 0 10/17/2022 Hunger Vital Sign Answer Date Recorded Within the past 12 months, y ou worried that your food would run out before you got the money to buy more. Never true 10/18/19 23 Within the past 12 months, t he food you bought just didn't last and you didn't have money to get more. Never true 10/17/2022 Sex and Gender Information Value Date Recorded Sex Assigned at Female 12/11/2018 10:35 AM EDT Gender Identity Female 12/11/2018 10:35 AM EDT Sexual Orientation Not on file Job Start Date Occupation Industry Not on file Not on file Not on file documented as of this encounter Functional Status Functional Status Response Date of Assess ment Are you deaf or do you have serious difficulty h earing? No 04/06/2023 Are you blind or do you have serious difficulty seeing, even when wearing glasses? No 04/06/2023 Do you have serious difficul ty walking or climbing stairs? (5 years old or older) No 04/06/2023 Do you have difficulty dress ing or bathing? (5 years old or older) No 04/06/2023 Because of a physical, menta l, or emotional condition, do you have difficulty doing errands alone such as visiting a doctor s office or shopping? (15 years old or older) No 04/06/20 23 Cognitive Status Response Date of Assessm ent Because of a physical, menta l, or emotional condition, do you have serious difficulty concentrating, remembering, or making decisions? (5 years old or older) No 04/06/2023 documented as of this encounter Miscellaneous Notes * Telephone Encounter - Tania Orlando DO - 06/07/2023 1:30 PM ESTSigned Prescriptions: Disp Refills HYDROcodone-Acetaminophen 5-325 MG Oral Ta*30 Tab*0 Sig: Take 1 Tablet by mouth every 6 hours as needed for Pain, Mild. Authorizing Provider: TANIA ORLANDO * Telephone Encounter - Donell Jones [facility] - 06/07/2023 12:10 PM EST Pending Prescriptions: Disp Refills HYDROcodone-Acetaminophen 5-325 MG Oral Ta*30 Tab*0 Sig: Take 1 Tablet by mouth every 6 hours as needed for Pain, Mild. * Telephone Encounter - Donell Jones [facility] - 06/07/2023 12:09 PM EST I have reviewed the patients controlled substance dispensing history in the Prescription Drug Monitoring Program in compliance with the [place] regulations before prescribing a controlled substance. PDMP checked on 06/07/2023. Pending Prescriptions: Disp Refills HYDROcodone-Acetaminophen 5-325 MG Oral T*30 Tab*0 Sig: Take 1 Tablet by mouth every 6 hours as needed for Pain, Mild. Last Visit: 04/20/2023 (in office), Visit date not found (telemedicine) Next Visit: 08/17/2023 Date medication was last filled: 05/10/23 Date medication is due for refill: 05/16/23 Pharmacy: [id number] Is this request for a controlled substance? Yes and Urine Drug Screen Not completed Toxicology results: Results for orders placed or performed in visit on 11/12/14 OPIOIDS/BENZO COMPLIANCE MONITORING TEST Result Value URINE DRUG SCREEN RESULT Amphetamine NEGATIVE Barbiturates NEGATIVE Benzodiazepines NEGATIVE Cannabinoids NEGATIVE Cocaine Metabolite NEGATIVE METHADONE METABOLITE NEGATIVE Morphine / Codeine REFER TO CONFIRMATION RESULT (A) OXYCODONE NEGATIVE COMMENT THE ABOVE SCREENING RESULTS ARE PRESUMPTIVE AND CAN ONLY BE USED FOR MEDICAL PURPOSES. CONFIRMATORY TESTING IS AVAILABLE UPON REQUEST. Cutoff Concentration URINE VALID INTERP NORMAL CREATININE ANDRE 168 NITRITE ANDRE 20 pH ANDRE 4.9 *Note: Due to a large number of results and/or encounters for the requested time period, some results have not been displayed. A complete set of results can be found in Results Review. Please approve if appropriate. Thank you, Donell Jones, Víctor Clinical Pharmacist [facility] ([facility]) (Formerly [facility]pharm[facility]) [phone] 06/07/2023, 12:09 PM * Telephone Encounter - Fabiola Pizarro PHARM Tech - 06/06/2023 11:41 AM EST Did you pend patient's preferred pharmacy and medication before forwarding?yes Pharmacy: [id number] Pending Prescriptions: Disp Refills HYDROcodone-Acetaminophen 5-325 MG Oral T*30 Tab*0 Sig: Take 1 Tablet by mouth every 6 hours as needed for Pain, Mild. Last Visit: 04/20/2023 (in office), Visit date not found (telemedicine) Next Visit: 08/17/2023 If no future appointments scheduled, and last appointment is greater than a year ago, please schedule patient for a follow-up appointment Last date the medication was ordered: Is this request for a controlled substance?Yes, What was the last refill date 05/10 w/ quantity 30 and dosage 17933 mg and Urine Drug Screen Not completed Urine Drug Screen: Results for orders placed or performed in visit on 11/12/14 OPIOIDS/BENZO COMPLIANCE MONITORING TEST Result Value URINE DRUG SCREEN RESULT Amphetamine NEGATIVE Barbiturates NEGATIVE Benzodiazepines NEGATIVE Cannabinoids NEGATIVE Cocaine Metabolite NEGATIVE METHADONE METABOLITE NEGATIVE Morphine / Codeine REFER TO CONFIRMATION RESULT (A) OXYCODONE NEGATIVE COMMENT THE ABOVE SCREENING RESULTS ARE PRESUMPTIVE AND CAN ONLY BE USED FOR MEDICAL PURPOSES. CONFIRMATORY TESTING IS AVAILABLE UPON REQUEST. Cutoff Concentration URINE VALID INTERP NORMAL CREATININE ANDRE 168 NITRITE ANDRE 20 pH ANDRE 4.9 *Note: Due to a large number of results and/or encounters for the requested time period, some results have not been displayed. A complete set of results can be found in Results Review. Patient Phone Numbers Labs: Lab Results Component Value Date/Time CREAT 1.5 (H) 05/31/2023 01:27 PM CREAT 1.6 (H) 03/06/2023 03:17 PM CREAT 1.5 (H) 04/09/2020 11:08 AM POTASSIUM 4.5 05/31/2023 01:27 PM POTASSIUM 4.9 04/09/2020 11:08 AM TSH 1.57 10/17/2022 11:43 AM TSH 0.76 04/09/2020 11:08 AM LDLCALC 54 01/21/2021 09:34 AM LDLCALC 60 08/05/2019 10:23 AM LDLDIRECT 65 08/15/2022 12:56 PM LDLDIRECT NOT APPLICABLE 08/05/2019 10:23 AM ALT 16 12/08/2022 09:49 AM ALT 21 08/05/2019 10:23 AM HGBA1C 7.1 (H) 04/20/2023 11:48 AM HGBA1C 7.5 (H) 04/09/2020 11:08 AM documented in this encounter Plan of Treatment Upcoming Encounters Date Type Department Care Team (Late st Contact Info) Description 06/14/2023 10:00 AM EST Immunization/Injec tion Hematology/Oncology Treatment, [place] [address] [place] [address] Nurse, Med 4 [address] [facility] [place] [address] 07/13/2023 11:00 AM EST Cardiac Studies Cardiology, [facility] [address] [facility], [place] [address] [facility] [address] [place] [address] 07/18/2023 11:00 AM EST Office Visit Cardiology, [facility] [address] [facility], [place] [address] Rosa Tyler [facility]C [facility] [address] 08/08/2023 11:15 AM EST Office Visit Hematology/Oncology [facility] [address] [facility] [place] [address] Rubin Rendon MD [address] [facility] [place] [address] 08/17/2023 9:30 AM EDT Office Visit Family [facility], [place] [address] [place] [id number] Tania Orlando, DO [address] [place] [address] 10/23/2023 10:00 AM EDT Nurse Only Ancillary Department, [place] [address] [place] [address] [place], Nurse [facility] [address] [place] [address] 05/09/2024 9:30 AM EST Cardiac Studies Cardiac Studies, [facility] [address] [place] [address] Scheduled Procedures Name Priority Associated Diagnoses Date/Ti me ESOPHAGOGASTRODUODENOSCOPY ( EGD), FLEXIBLE, TRANSORAL, ENDOSCOPIC ULTRASOUND Recall Duodenal nodule Health Maintenance Due Date Last Done Comments DTaP,Tdap,and Td Vaccines (1 - Tdap) 1954 Hepatitis B (1 of 3 - Risk 3-dose series) 1997 COVID-19 Vaccine ( - 2022- season) 2023 05/10/2022, 10/01/2021, 05/05/2021, Additional history exists Diabetic Eye Exam 10/04/2023 10/03/2022, 06/21/2019 Albumin/Creatinine Ratio 10/18/2023 10/17/2022, 04/05 Depression Screening 10/18/2023 10/17/2022 Diabetic Foot Exam 10/18/2023 10/17/2022, 0 10/07/2020, 08/12/2019, Additional history exists TSH 10/18/2023 10/17/2022, 10/03, 11/26/2020, Additional history exists HbA1c 10/19/2023 04/20/2023, 07/0 11/2022, 04/15/2022, Additional history exists CKD PHOS USE SMARTSET 25715 02/11/2024 09/0 01/2023, 10/17/2022, 04/12/2021, Additional history exists CKD HGB USE SMARTSET 64126 05/24/202405/24, 04/07/2023, 04/06/2023, Additional history exists DXA Scan 11/22/2029 11/22/2022, 03/05, 01/24/2011, Additional history exists Pneumococcal Vaccine: 65+ Years Completed 06/24/2015, 04/29/2013 Zoster Vaccines Completed 07/19/2018, 01/04, 05/09/2014 Influenza Vaccine (FLU shot) Completed , 04/15/2022, 03/18/2021, Additional history exists GARDASIL-HPV IMMUNIZATION SERIES Aged Out No longer eligible based on patient's age to complete this topic MENINGOCOCCAL (MENACTRA/MENVEO) Aged Out No longer eligible based on patient's age to complete this topic documented as of this encounter Medical Devices Implanted Type Area Cloth Spreader Device Identifier Shelf Expiration Date Model / Serial / Lot Lens 21.0 Mx60 - [id number] Implanted:Qty: 1 on 03/23/2016 by Jax Theodore MD at [facility] [employer] : SURGICAL 10/02/2018 MX60-21.0 / [id number] / [id number] Lens 21.5 Mx60 - [id number] - [id number] Implanted:Qty: 1 on 04/20/2016 by Jax Theodore MD at [facility] Right: Eye [employer] : SURGICAL 09/02/2018 MX60-21.5 / [id number] / [id number] Valve Marni 3 Ultra 23mm - [id number] Implanted:Qty: 1 on 04/06/2023 by Payam Amor MD at [facility] [employer] [id number] 01/31/2024 [id number] / / documented as of this encounter Visit Diagnoses Diagnosis Generalized OA Generalized osteoarthrosis, unspecified site Osteoarthritis of multiple joints, unspecified osteoarthritis type documented in this encounter Advance Directives Latest Code Status on File Code Status Date Activated Date Inactivated Comments Full Code 04/06/2023 12:10 PM 04/07/2023 6:11 PM This order reflects the patients wishes and were consensually agreed upon. Question Answer Comments Discussion of Advance Directives occurred with: Patient Code Status History Code Status Date Activated Date Inactivated Comments Full Code 04/20/2016 9:47 AM 04/20/2016 2:37 PM Thi s order reflects the patients wishes and were consensually agreed upon. Full Code 04/20/2016 7:33 AM 04/20/2016 9:47 AM Thi s order reflects the patients wishes and were consensually agreed upon. Full Code 03/23/2016 10:11 AM 03/23/2016 2:35 PM Th is order reflects the patients wishes and were consensually agreed upon. Full Code 03/23/2016 8:20 AM 03/23/2016 10:11 AM Th is order reflects the patients wishes and were consensually agreed upon. Care Teams Jewelry Manager Relationship Specialty Start Date End Date Tania Orlando DO [address] [place] [address] PCP - General Family Medicine 07/10/18 documented as of this encounter
--- OUTSIDE RECORDS SUMMARY | 2023-06-11 13:21 | External Medical Summary | Summary of Care ---
Author Name Unknown Organization [facility] Address [address] [place] [address] Phone [phone] Care Team Providers Care Review Specialist Name Role Phone Chelsey Mitchell DO Primary Care Provider [phone] Encounter Details Date Type Department Care Team (Late st Contact Info) Description 06/06/2023 Orders Only Outcomes Research Department [address] [place] [address] Nahomy Ruiz CHRA MyCode Research Other*[id number] Allergies Active Allergy Reactions Criticality Noted Date Comments Bee Venom Abdominal pain,Edema face/lips/tongue High 02/17/2011 Sulfa Antibiotics Rash Medium 12/26/2007 documented as of this encounter (statuses as of 06/06/2023) Medications Medication Sig Dispensed Refills Start Date [...] Active Metoprolol Tartrate 25 MG Oral Tablet (Lopressor)Indicatio ns:HTN, goal below 130/80,Tachy-bryn syndrome (HCC) TAKE 1 TABLET BY MOUTH TWICE DAILY 180 Tablet 3 09/02/2022 Active ShonTouch Verdestin In Vitro Strip (Glucose Blood) use as directed to test blood sugar once a day 100 Strip 2 02/01/2023 Active Atorvastatin Calcium 20 MG Oral Tablet (Lipitor)Indications :Dyslipidemia, goal LDL below 100 TAKE 1 TABLET BY MOUTH ONCE DAILY 90 Tablet 1 04/03/2023 Active Levothyroxine Sodium 100 MCG Oral Tablet (Levoxyl)Indications :Hypothyroidism take 1 tablet by mouth once daily at least 30 minutes before breakfast or any other medications 90 Tablet 1 04/12/2023 Active Lisinopril 40 MG Oral TabletIndications:HT N, goal below 130/80 TAKE 1 TABLET BY MOUTH ONCE DAILY 90 Tablet 1 05/10/2023 Active HYDROcodone-Acetamin ophen 5-325 MG Oral TabletIndications:Ge neralized OA,Osteoarthritis of multiple joints, unspecified osteoarthritis type Take 1 Tablet by mouth every 6 hours as needed for Pain, Mild. 30 Tablet 0 05/10/2023 Active Omeprazole 40 MG Oral Capsule Delayed Release (PriLOSEC)Indication s:Hx of gastric ulcer TAKE 1 CAPSULE BY MOUTH ONCE DAILY 1 hour before the first meal of the day 90 Capsule 3 05/24/2023 Active Furosemide 20 MG Oral Tablet (Lasix) Take 1 Tablet by mouth in the morning. Or as directed by cardiology.. 45 Tablet 11 05/24/2023 Active documented as of this encounter (statuses as of 06/06/2023) Active Problems Problem Noted Date Diagnosed Date [...] as of this encounter (statuses as of 06/06/2023) Resolved Problems Problem Noted Date Diagnosed Date [...] as of this encounter (statuses as of 06/06/2023) Immunizations Name Administration Dates Next Due COVID-19 mRNA, LNP-s, No Pre serve, 2-Dose Series (Pfizer) 10/01/2021,05/05/2021,09/10/2020,08/03 Covid-19, Mrna, Lnp-s, Pf, B ivalent, 30 Mcg, IM, 12 yrs and above (Pfizer) 05/10/2022 Pneumococcal Conjugate Vacc, 13 Valent (Prevnar) [...] money to buy more. Never true 10/18/19 Within the past 12 months, t he [...] (15 years old or older) No 04/06/20 Cognitive Status Response Date of Assessm ent Because of a physical, menta l, or emotional condition, do you have serious difficulty concentrating, remembering, or making decisions? (5 years old or older) No 04/06/2023 documented as of this encounter Plan of Treatment Upcoming Encounters Date Type Department Care Team (Late st Contact Info) Description 06/14/2023 10:00 AM EST Immunization/Injec tion Hematology/Oncology Treatment, [place] [address] [place] [address] Nurse, Med 4 200 [facility] [place] [address] 07/13/2023 11:00 AM EST Cardiac Studies Cardiology, [facility] [place] [address] [facility] 132 [facility] [address] 07/18/2023 11:00 AM EST Office Visit Cardiology, [facility] [address] [facility] [place] [address] Rosa Tyler PA-C [facility] [place] [address] 08/08/2023 11:15 AM EST Office Visit Hematology/Oncology [facility] 200 [facility] [place] [address] Rubin Rendon MD 200 [facility] [place] [address] 08/17/2023 9:30 AM EDT Office Visit Family [facility], [place] [address] [address] [facility], [place] [id number] Chelsey Mitchell, DO [address] [facility] [place] [address] 10/23/2023 10:00 AM EDT Nurse Only Ancillary Department, [place] [address] [facility] [place] [address] [place], Nurse [facility] [address] [facility] [place] [address] 05/09/2024 9:30 AM EST Cardiac Studies Cardiac Studies, [facility] 132 [employer] [place] [address] Scheduled Orders Name Type Priority Associated Diagnoses Orde r Schedule MYCODE SUBSEQUENT ADULT Lab Routine MyCode Research Other*[id number] Every 6 Months for 2 Occurrences starting 06/06/2023 until 06/25/2024 Scheduled Procedures Name Priority Associated Diagnoses Date/Ti [...] Additional history exists CKD PHOS USE SMARTSET 46991 02/11/2024 09/0 01/2023, 10/17/2022, 04/12/2021, Additional history exists CKD HGB USE SMARTSET 56545 05/24/202405/24, 04/07/2023, 04/06/2023, Additional history exists DXA [...] this encounter Medical Devices Implanted Type Area Spinner Box Device Identifier Shelf Expiration Date Model / Serial / Lot Lens 21.0 Mx60 - [id number] Implanted:Qty: 1 on 03/23/2016 by Jax Theodore MD at OR [facility] [employer] : SURGICAL 10/02/2018 MX60-21.0 / [id number] / [id number] Lens 21.5 Mx60 - [id number] - [id number] Implanted:Qty: 1 on 04/20/2016 by Jax Theodore MD at OR [facility] Right: Eye [employer] : SURGICAL 09/02/2018 MX60-21.5 / [id number] / [id number] Valve Marni 3 Ultra 23mm - [id number] Implanted:Qty: 1 on 04/06/2023 by Payam Amor MD at [facility] [employer] [id number] 01/31/2024 [id number] / / documented as of this encounter Visit Diagnoses Diagnosis MyCode Research Other*[id number] documented in this encounter Advance Directives Latest [...] and were consensually agreed upon. Care Teams Review Specialist Relationship Specialty Start Date End Date Chelsey Mitchell DO 9 [facility] [place] [phone] PCP - General Family Medicine 07/10/18 documented as of this encounter
--- OUTSIDE RECORDS SUMMARY | 2023-06-11 13:21 | External Medical Summary | Summary of Care ---
Author Name Unknown Organization [facility] Address [address] [facility] [place] [address] Phone [phone] Care Team Providers Care Manager Secondary Name Role Phone Chelsey Mitchell DO Primary Care Provider Encounter Details Date Type Department Care Team (Late st Contact Info) Description 06/09/2023 Result Scan Unspecified Department Darrell Sparks DO [address] [place] [address] <No scans attached> Allergies Active Allergy Reactions Criticality Noted Date Comments Bee Venom Abdominal pain,Edema face/lips/tongue High 02/17/2011 Sulfa Antibiotics Rash Medium 12/26/2007 documented as of this encounter (statuses as of 06/09/2023) Medications Medication Sig Dispensed Refills Start Date [...] by cardiology.. 45 Tablet 11 05/24/2023 Active HYDROcodone-Acetamin ophen 5-325 MG Oral TabletIndications:Ge neralized OA,Osteoarthritis of multiple joints, unspecified osteoarthritis type Take 1 Tablet by mouth every 6 hours as needed for Pain, Mild. 30 Tablet 0 06/07/2023 Active documented as of this encounter (statuses as of 06/09/2023) Active Problems Problem Noted Date Diagnosed Date [...] as of this encounter (statuses as of 06/09/2023) Resolved Problems Problem Noted Date Diagnosed Date [...] as of this encounter (statuses as of 06/09/2023) Immunizations Name Administration Dates Next Due COVID-19 [...] 10:00 AM EST Immunization/Injec tion Hematology/Oncology Treatment, [place] [address] [place] [address] Nurse, Med 4 200 [facility] [place] [address] 07/13/2023 11:00 AM EST Cardiac Studies Cardiology, [facility] 132 [facility], [place] [address] [facility] 132 [place] [address] 07/18/2023 11:00 AM EST Office Visit Cardiology, [facility] 132 [facility], [place] [address] Rosa Tyler PA-C [facility] [address] 08/08/2023 11:15 AM EST Office Visit Hematology/Oncology [facility] 200 [facility] [place] [address] Rubin Rendon MD 200 [facility] [place] [address] 08/17/2023 9:30 AM EDT Office Visit Family [facility], [place] [address] [place] [phone] Chelsey Mitchell, DO [address] [place] [address] 10/23/2023 10:00 AM EDT Nurse Only Ancillary Department, [place] [address] [facility] [place] [address] [place], Nurse [facility] [address] [place] [address] 05/09/2024 9:30 AM EST Cardiac Studies Cardiac Studies, [facility] [address] [place] [address] Scheduled Procedures Name Priority Associated Diagnoses Date/Ti [...] Additional history exists CKD PHOS USE SMARTSET 27349 02/11/2024 09/0 01/2023, 10/17/2022, 04/12/2021, Additional history exists CKD HGB USE SMARTSET 38225 05/24/202405/24, 04/07/2023, 04/06/2023, Additional history exists DXA [...] this encounter Medical Devices Implanted Type Area Corporate Travel Expert Device Identifier Shelf Expiration Date Model / Serial / Lot Lens 21.0 Mx60 - [id number] Implanted:Qty: 1 on 03/23/2016 by Jax Theodore MD at OR [facility] [employer] : SURGICAL 10/02/2018 MX60-21.0 / [id number] / [id number] Lens 21.5 Mx60 - [id number] - [id number] Implanted:Qty: 1 on 04/20/2016 by Jax Theodore MD at OR [facility] Right: Eye [employer] : SURGICAL 09/02/2018 MX60-21.5 / [id number] / [id number] Valve Marni 3 Ultra 23mm - [id number] Implanted:Qty: 1 on 04/06/2023 by Payam Amor MD at [facility] [employer] [id number] 01/31/2024 [id number] / / documented as of this encounter Procedures Procedure Name Priority Date/Time Associated Diagnosis Comments CARDIOLOGY SCANNED RESULT 06/09/2023 documented in this encounter Results * CARDIOLOGY SCANNED RESULT (06/09/2023) 06/09/2023 Darrell Sparks DO OTHER documented in this encounter Advance Directives Latest [...] and were consensually agreed upon. Care Teams Manager Secondary Relationship Specialty Start Date End Date Chelsey Mitchell DO [address] [place] [address] PCP - General Family Medicine 07/10/18 documented as of this encounter
--- OUTSIDE RECORDS SUMMARY | 2023-06-11 13:21 | External Medical Summary ---
Author Name Unknown Address Unknown Organization K01:[facility] [address] [place] [address] Laboratory Report Ordering Provider Test Date Status BAKARI PINEDO 05/31/2023 13:27:46 Final Observation Date Value Abnormality Reference (Units ) Status BUN 05/31/2023 13:27:46 38 Above high normal 6-20 (mg/dL) Final Creatinine 05/31/2023 13:27:46 1.5 Above high normal 0.5-1.0 (mg/dL) Final Glomerular filtration rate/1.73 sq M.predicted [Volume Rate/Area] in Serum, Plasma or Blood by Creatinine-based formula (CKD-EPI) 05/31/2023 13:27:46 34 Below low normal >=60 (mL/min) Final eGFR is calculated based on the CKD-EPI 2020 equation SODIUM 05/31/2023 13:27:46 140 135-146 (m mol/L) Final Potassium 05/31/2023 13:27:46 4.5 3.5-5.1 (m mol/L) Final Cl 05/31/2023 13:27:46 102 98-107 (mm ol/L) Final CO2 05/31/2023 13:27:46 26 22-32 (mmo l/L) Final Anion gap 05/31/2023 13:27:46 12 7-15 (mmol /L) Final Glucose 05/31/2023 13:27:46 162 Above high normal 70 -120 (mg/dL) Final Calcium 05/31/2023 13:27:46 9.5 8.4-10.2 ( mg/dL) Final Performing Location [facility] [address] [place] [address]
--- OUTSIDE RECORDS SUMMARY | 2023-06-11 13:21 | External Medical Summary | Summary of Care ---
Author Name Unknown Organization [facility] Address [address] [place] [address] Phone [phone] Care Team Providers Care Hammer Driver Name Role Phone Chelsey Mitchell DO Primary Care Provider Reason for Visit * Reason Comments Outpatient Testing Encounter Details Date Type Department Care Team (Late st Contact Info) Description 05/31/2023 1:30 PM EST Laboratory Laboratory, [place] [address] [place] [address] [place], Laboratory [address] [place] [address] HTN, goal below 130/80; Severe aortic stenosis Allergies Active Allergy Reactions Criticality Noted Date Comments Bee Venom Abdominal pain,Edema face/lips/tongue High 02/17/2011 Sulfa Antibiotics Rash Medium 12/26/2007 documented as of this encounter (statuses as of 05/31/2023) Medications Medication Sig Dispensed Refills Start Date [...] as of this encounter (statuses as of 05/31/2023) Active Problems Problem Noted Date Diagnosed Date [...] as of this encounter (statuses as of 05/31/2023) Resolved Problems Problem Noted Date Diagnosed Date [...] as of this encounter (statuses as of 05/31/2023) Immunizations Name Administration Dates Next Due COVID-19 mRNA, LNP-s, No Pre serve, 2-Dose Series ([employer]) 10/01/2021,05/05/2021,09/10/2020,08/03 Covid-19, Mrna, Lnp-s, Pf, B ivalent, 30 Mcg, IM, 12 yrs and above ([employer]) 05/10/2022 Pneumococcal Conjugate Vacc, 13 Valent (Prevnar) [...] 10:00 AM EST Immunization/Injec tion Hematology/Oncology Treatment, [place] [address] [facility] [place] [address] Nurse, Med [address] [facility] [place] [address] 07/13/2023 11:00 AM EST Cardiac Studies Cardiology, [facility] [address] [facility] [place] [address] [place], [facility] [address] 07/18/2023 11:00 AM EST Office Visit Cardiology, [facility] [place] [address] Rosa Tyler [facility]-C 132 [facility] [address] 08/08/2023 11:15 AM EST Office Visit Hematology/Oncology [facility] [address] [facility] [place] [address] Rubin Rendon MD 200 [facility] [address] 08/17/2023 9:30 AM EDT Office Visit Family [facility], [place] [address] [facility] [phone] Chelsey Mitchell DO [address] [facility] [address] 10/23/2023 10:00 AM EDT Nurse Only Ancillary Department, [place] [address] [facility] [address] [place] Nurse Annual [facility] [address] [facility] [address] 05/09/2024 9:30 AM EST Cardiac Studies Cardiac Studies, [facility] 132 [facility] [place] [address] Pending Results Name Type Priority Associated Diagnoses Date /Time BASIC METABOLIC PANEL Lab Routine HTN, goal below 130/80 Severe aortic stenosis 05/31/2023 1:27 PM EST Scheduled Procedures Name Priority Associated Diagnoses Date/Ti me ESOPHAGOGASTRODUODENOSCOPY ( EGD), FLEXIBLE, TRANSORAL, ENDOSCOPIC ULTRASOUND Recall Duodenal nodule Health Maintenance Due Date Last Done Comments DTaP,Tdap,and Td Vaccines (1 - Tdap) 1954 Hepatitis B (1 of 3 - Risk 3-dose series) 1997 COVID-19 Vaccine ( season) 2023 05/10/2022, 10/01/2021, 05/05/2021, Additional history exists Diabetic Eye Exam 10/04/2023 10/03/2022, 06/21/2019 Albumin/Creatinine Ratio 10/18/2023 10/17/2022, 04/05 Depression Screening 10/18/2023 10/17/2022 Diabetic Foot Exam 10/18/2023 10/17/2022, 0 10/07/2020, 08/12/2019, Additional history exists TSH 10/18/2023 10/17/2022, 10/03, 11/26/2020, Additional history exists HbA1c 10/19/2023 04/20/2023, 07/0 11/2022, 04/15/2022, Additional history exists CKD PHOS USE SMARTSET 07378 02/11/2024 09/0 01/2023, 10/17/2022, 04/12/2021, Additional history exists CKD HGB USE SMARTSET 17371 05/24/202405/24, 04/07/2023, 04/06/2023, Additional history exists DXA [...] this encounter Medical Devices Implanted Type Area Gatehouse Attendant Device Identifier Shelf Expiration Date Model / Serial / Lot Lens 21.0 Mx60 - [id number] Implanted:Qty: 1 on 03/23/2016 by Jax Theodore MD at OR [facility] [employer] : SURGICAL 10/02/2018 MX60-21.0 / [id number] / [id number] Lens 21.5 Mx60 - [id number] - [id number] Implanted:Qty: 1 on 04/20/2016 by Jax Theodore MD at OR [facility] Right: Eye [employer] : SURGICAL 09/02/2018 MX60-21.5 / [id number] / [id number] Valve Marni 3 Ultra 23mm - [id number] Implanted:Qty: 1 on 04/06/2023 by Payam Amor MD at [facility] [employer] [id number] 01/31/2024 [id number] / / documented as of this encounter Visit Diagnoses Diagnosis HTN, goal below 130/80 Unspecified essential hypertension Severe aortic stenosis Aortic valve disorders documented in this encounter Advance Directives Latest [...] and were consensually agreed upon. Care Teams Hammer Driver Relationship Specialty Start Date End Date Chelsey Mitchell DO [address] [place] [address] PCP - General Family Medicine 07/10/18 documented as of this encounter
--- OUTSIDE RECORDS SUMMARY | 2023-06-11 13:21 | External Medical Summary | Summary of Care ---
Author Name Unknown Organization [facility] Address [address] [facility] [address] Phone [phone] Care Team Providers Care Dairy Products Maker Name Role Phone Chelsey Mitchell DO Primary Care Provider Reason for Visit * Reason Onset Date Comments Test Results 05/25/2023 Encounter Details Date Type Department Care Team (Late st Contact Info) Description 05/25/2023 Telephone Cardiology, [facility] [address] [place] [address] Ning Devlin CRNP [address] [facility] [place] [address] Test Results Allergies Active Allergy Reactions Criticality Noted Date Comments Bee Venom Abdominal pain,Edema face/lips/tongue High 02/17/2011 Sulfa Antibiotics Rash Medium 12/26/2007 documented as of this encounter (statuses as of 05/25/2023) Medications Medication Sig Dispensed Refills Start Date [...] as of this encounter (statuses as of 05/25/2023) Active Problems Problem Noted Date Diagnosed Date [...] as of this encounter (statuses as of 05/25/2023) Resolved Problems Problem Noted Date Diagnosed Date [...] as of this encounter (statuses as of 05/25/2023) Immunizations Name Administration Dates Next Due COVID-19 mRNA, LNP-s, No Pre serve, 2-Dose Series ([employer]) 10/01/2021,05/05/2021,09/10/2020,08/03 Covid-19, Mrna, Lnp-s, Pf, B ivalent, 30 Mcg, IM, 12 yrs and above ([employer]) 05/10/2022 Pneumococcal Conjugate Vacc, 13 Valent (Prevnar) [...] encounter Miscellaneous Notes * Telephone Encounter - Brenda, Vivian M, TRAVEL REGISTERED NURSE PACU - 05/25/2023 2:54 PM EST Spoke with patient by phone, gave information in this encounter. Verbalized understanding Agreed to plan of care. Labs ordered * Telephone Encounter - Vivian Gutierrez LPN - 05/25/2023 2:48 PM EST ----- Message from ISHAAN Naidu sent at 05/25/2023 2:24 PM EST ----- One-month post TAVR echo reviewed. LVEF normal 69% without wall motion abnormality. TAVR gradients stable. Follow-up as scheduled. No changes needed at this time. * Telephone Encounter - Vivian Gutierrez LPN - 05/25/2023 2:48 PM EST ----- Message from ISHAAN Naidu sent at 05/25/2023 8:31 AM EST ----- Iron studies and mag ok. No changes needed. BNP elevated, lasix started yesterday. Repeat BMP in 7-10 days * Telephone Encounter - Vivian Gutierrez LPN - 05/25/2023 2:47 PM EST ----- Message from ISHAAN Naidu sent at 05/24/2023 1:20 PM EST ----- Stable-- started on lasix today. Repeat BMP in 1 week after starting. documented in this encounter Plan of Treatment Upcoming Encounters Date Type Department Care Team (Late st Contact Info) Description 06/14/2023 10:00 AM EST Immunization/Injec tion Hematology/Oncology Treatment, [address] [place] [address] Nurse, Med 200 [facility] [place] [address] 07/13/2023 11:00 AM EST Cardiac Studies Cardiology, [facility] 132 [place] [address] [facility] 132 [place] [address] 07/18/2023 11:00 AM EST Office Visit Cardiology, [facility] 132 [facility] [address] Rosa Tyler PA-C 132 [place] [address] 08/08/2023 11:15 AM EST Office Visit Hematology/Oncology [facility] 200 [facility] [place] [address] Rubin Rendon MD [address] [facility] [place] [address] 08/17/2023 9:30 AM EDT Office Visit Family [facility], [place] [address] [address] [facility] [place] [phone] Chelsey Mitchell, DO [address] [facility] [place] [address] 10/23/2023 10:00 AM EDT Nurse Only Ancillary Department, [place] [address] [facility] [place] [address] [place], Nurse Annual Wellness [address] [facility] [place] [address] 05/09/2024 9:30 AM EST Cardiac Studies Cardiac Studies, [place], [address] [place] [address] Scheduled Orders Name Type Priority Associated Diagnoses Orde r Schedule BASIC METABOLIC PANEL Lab Routine HTN, goal below 130/80 Severe aortic stenosis Expected: 06/01/2023 (Approximate), Expires: 05/25/2024 Scheduled Procedures Name Priority Associated Diagnoses Date/Ti [...] Additional history exists CKD PHOS USE SMARTSET 75616 02/11/2024 09/0 01/2023, 10/17/2022, 04/12/2021, Additional history exists CKD HGB USE SMARTSET 17171 05/24/202405/24, 04/07/2023, 04/06/2023, Additional history exists DXA [...] this encounter Medical Devices Implanted Type Area Licensed Acupuncturist Device Identifier Shelf Expiration Date Model / Serial / Lot Lens 21.0 Mx60 - [id number] Implanted:Qty: 1 on 03/23/2016 by Jax Theodore MD at OR [facility] [employer] : SURGICAL 10/02/2018 MX60-21.0 / [id number] / [id number] Lens 21.5 Mx60 - [id number] - [id number] Implanted:Qty: 1 on 04/20/2016 by Jax Theodore MD at OR [facility] Right: Eye [employer] : SURGICAL 09/02/2018 MX60-21.5 / [id number] / [id number] Valve Marni 3 Ultra 23mm - [id number] Implanted:Qty: 1 on 04/06/2023 by Payam Amor MD at [facility] [employer] [id number] 01/31/2024 [id number] / / documented as of this encounter Visit Diagnoses Diagnosis Severe aortic stenosis- Primary Aortic valve disorders HTN, goal below 130/80 Unspecified essential hypertension documented in this encounter Advance Directives Latest [...] and were consensually agreed upon. Care Teams Dairy Products Maker Relationship Specialty Start Date End Date Chelsey Mitchell DO [address] [place] [address] PCP - General Family Medicine 07/10/18 documented as of this encounter
--- OUTSIDE RECORDS SUMMARY | 2023-06-11 13:21 | External Medical Summary | Summary of Care ---
Author Name Unknown Organization [facility] Address [address] [place] [address] Phone [phone] Care Team Providers Care Client Support Consultant Name Role Phone Chelsey Mitchell DO Primary Care Provider [phone] Reason for Visit * Reason Onset Date Comments Med Request 03/08/2023 Encounter Details Date Type Department Care Team (Late st Contact Info) Description 03/08/2023 Telephone [facility] [address] [place] [place] [facility] [place] [address] Chesley Mitchell DO [address] [place] [address] Med Request Allergies Active Allergy Reactions Criticality Noted Date [...] morning. E11.9 1 Box Dosing Unit 11 9 Active Vitamin D (Cholecalciferol) 10 MCG (400 [...] Active Metoprolol Tartrate 25 MG Oral Tablet (Lopressor)Indicat ions:HTN, goal below 130/80,Tachy-bryn syndrome (HCC) TAKE 1 TABLET BY MOUTH TWICE DAILY 180 Tablet 3 3 Active OneTouch Verio In Vitro Strip (Glucose Blood) use as directed to test blood sugar once a day 100 Strip 2 3 Active Meclizine HCl 12.5 MG Oral Tablet (Antivert)Indicati ons:Vertigo TAKE ONE TABLET BY MOUTH THREE TIMES DAILY if needed for dizziness 30 Tablet 1 2 023 Discontinued Tradjenta 5 MG Oral Tablet (linaGLIPtin)Indic ations:Type 2 diabetes mellitus with stage 3b chronic kidney disease, with long-term current use of insulin (HCC) TAKE 1 TABLET BY MOUTH ONCE DAILY 90 Tablet 2 3 023 Discontinued(Me dication List Clean Up) hydroCHLOROthiazid e 25 MG Oral Tablet (Hydrodiuril) TAKE HALF TABLET BY MOUTH DAILY 45 Tablet 2 3 023 Discontinued(Me dication/Dose Changed) Atorvastatin Calcium 20 MG Oral Tablet (Lipitor)Indicatio ns:Dyslipidemia, goal LDL below 100 TAKE 1 TABLET BY MOUTH ONCE DAILY 90 Tablet 1 3 023 Discontinued Levothyroxine Sodium 100 MCG Oral Tablet (Levoxyl)Indicatio ns:Hypothyroidism take one tablet by mouth daily at least 30 minutes before breakfast and other medications 90 Tablet 1 3 023 Discontinued Lisinopril 40 MG Oral TabletIndications: HTN, goal below 130/80 TAKE 1 TABLET BY MOUTH ONCE DAILY 90 Tablet 1 3 023 Discontinued Omeprazole 40 MG Oral Capsule Delayed Release (PriLOSEC)Indicati ons:Hx of gastric ulcer TAKE 1 CAPSULE BY MOUTH ONCE DAILY 1 hour before the first meal of the day 90 Capsule 1 3 023 Discontinued HYDROcodone-Acetam inophen 5-325 MG Oral TabletIndications: Generalized OA,Osteoarthritis of multiple joints, unspecified osteoarthritis type Take 1 Tablet by mouth every 6 hours as needed for Pain, Mild. 30 Tablet 0 3 023 Discontinued(Re fill) Cefdinir 300 MG Oral Capsule (Omnicef) Take 1 Capsule by mouth in the morning and 1 Capsule before bedtime. Do all this for 10 days. For 10 days.. 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 Patient would like someone to give her a call either way to let her know what's going on. Patient can be reached at [phone]. * Telephone Encounter - Gila Tinsley CCMA - 03/08/2023 3:55 PM EDT Called patient. Left message that medication is sent to the pharmacy to call back with any questions * Telephone Encounter - Chelsey Mitchell DO - 03/08/2023 11:52 AM EDT Okay sent in antibiotic and to stop the Tradjenta * Telephone Encounter - Clair Beckman PHARM Tech - 03/08/2023 11:08 AM EDT Pt called stating dr prescribed cefdinir for a UTI. Pt said she took rx for the 10 days as prescribed but the uti is coming back. Pt said she was up all night last night going to the bathroom and shehas a burning sensation. Pt said she was speaking with her cardioologist and he said it could be the tradjenta or her diabetes. Pt was wondering if dr could prescribe another antibiotic. Thanks, Clair Beckman Fire Extinguisher Sprinkler Inspector [facility] ([facility]) 03/08/2023,11:11 AM documented in this encounter Plan of Treatment Upcoming Encounters Date Type Department Care Team (Late st Contact Info) Description 06/14/2023 10:00 AM EST Immunization/Injec tion Hematology/Oncology Treatment, [place] [address] [place], [place] [address] Nurse, Med [address] [facility] [place], [place] [address] 07/13/2023 11:00 AM EST Cardiac Studies Cardiology, [facility] [address] [place] [address] Flex [facility] 132 [place] [address] 07/18/2023 11:00 AM EST Office Visit Cardiology, [facility] [address] [facility], [place] [address] Rosa Tyler PA-C 132 [facility] [place] [address] 08/08/2023 11:15 AM EST Office Visit Hematology/Oncology [facility] [address] [facility] [place] [address] Rubin Rendon MD 200 [facility], [place] [address] 08/17/2023 9:30 AM EDT Office Visit [facility], [place] [address] [facility] [id number] Chelsey Mitchell, [address] [place] [address] 10/23/2023 10:00 AM EDT Nurse Only Ancillary Department, [place] [address] [facility] [address] [place], Nurse [facility] [address] [place] [address] 05/09/2024 9:30 AM EST Cardiac Studies Cardiac Studies, [facility] [address] [place] [address] Scheduled Procedures Name Priority Associated Diagnoses Date/Ti [...] Additional history exists CKD PHOS USE SMARTSET 67877 02/11/2024 09/0 01/2023, 10/17/2022, 04/12/2021, Additional history exists CKD HGB USE SMARTSET 05298 05/24/202405/24, 04/07/2023, 04/06/2023, Additional history exists DXA [...] this encounter Medical Devices Implanted Type Area Sample Wrapper Device Identifier Shelf Expiration Date Model / Serial / Lot Lens 21.0 Mx60 - [id number] Implanted:Qty: 1 on 03/23/2016 by Jax Theodore MD at OR [facility] [employer] : SURGICAL 10/02/2018 MX60-21.0 / [id number] / [id number] Lens 21.5 Mx60 - [id number] - [id number] Implanted:Qty: 1 on 04/20/2016 by Jax Theodore MD at OR [facility] Right: Eye [employer] : SURGICAL 09/02/2018 MX60-21.5 / [id number] / [id number] Valve Marni 3 Ultra 23mm - [id number] Implanted:Qty: 1 on 04/06/2023 by Payam Amor MD at [facility] LABS [facility] [employer] [id number] 01/31/2024 [id number] / / documented as of this encounter Advance Directives Latest Code Status [...] and were consensually agreed upon. Care Teams Client Support Consultant Relationship Specialty Start Date End Date Chelsey Mitchell DO [address] [place] [address] PCP - General Family Medicine 07/10/18 documented as of this encounter
--- OUTSIDE RECORDS SUMMARY | 2023-06-11 13:22 | External Medical Summary | Summary of Care ---
Author Name Unknown Organization [facility] Address [address] [place] [address] Phone [phone] Care Team Providers Care Tool Keeper Name Role Phone Tania Mitchell DO Primary Care Provider Reason for Visit * Reason Onset Date Comments Medication Refill 05/08/2023 Encounter Details Date Type Department Care Team (Late st Contact Info) Description 05/08/2023 Refill [facility] [address] [place] [facility] [place] [address] Tania Mitchell DO [address] [place] [address] Generalized OA; Osteoarthritis of multiple joints, unspecified osteoarthritis type Allergies Active Allergy Reactions Criticality Noted Date Comments Bee Venom Abdominal pain,Edema face/lips/tongue High 02/17/2011 Sulfa Antibiotics Rash Medium 12/26/2007 documented as of this encounter (statuses as of 05/10/2023) Medications Medication Sig Dispensed Refills Start Date [...] TWICE DAILY 180 Tablet 3 3 Active hydroCHLOROthiazid e 25 MG Oral Tablet (Hydrodiuril) TAKE HALF TABLET BY MOUTH DAILY 45 Tablet 2 3 Active Omeprazole 40 MG Oral Capsule Delayed Release (PriLOSEC)Indicati ons:Hx of gastric ulcer TAKE 1 CAPSULE BY MOUTH ONCE DAILY 1 hour before the first meal of the day 90 Capsule 1 3 Active One[employer] Bus Tees Verio In Vitro Strip (Glucose Blood) use as directed to test blood sugar once a day 100 Strip 2 3 Active Atorvastatin Calcium 20 MG Oral Tablet (Lipitor)Indicatio ns:Dyslipidemia, goal LDL below 100 TAKE 1 TABLET BY MOUTH ONCE DAILY 90 Tablet 1 3 Active Levothyroxine Sodium 100 MCG Oral Tablet (Levoxyl)Indicatio ns:Hypothyroidism take 1 tablet by mouth once daily at least 30 minutes before breakfast or any other medications 90 Tablet 1 3 Active HYDROcodone-Acetam inophen 5-325 MG Oral TabletIndications: Generalized OA,Osteoarthritis of multiple joints, unspecified osteoarthritis type Take 1 Tablet by mouth every 6 hours as needed for Pain, Mild. 30 Tablet 0 3 Active Lisinopril 40 MG Oral TabletIndications: HTN, goal below 130/80 TAKE 1 TABLET BY MOUTH ONCE DAILY 90 Tablet 1 3 023 Discontinued HYDROcodone-Acetam inophen 5-325 MG Oral TabletIndications: Generalized OA,Osteoarthritis of multiple joints, unspecified osteoarthritis type Take 1 Tablet by mouth every 6 hours as needed for Pain, Mild. 30 Tablet 0 3 023 Discontinued(Re fill) documented as of this encounter (statuses as of 05/10/2023) Active Problems Problem Noted Date Diagnosed Date [...] as of this encounter (statuses as of 05/10/2023) Resolved Problems Problem Noted Date Diagnosed Date [...] as of this encounter (statuses as of 05/10/2023) Immunizations Name Administration Dates Next Due COVID-19 mRNA, LNP-s, No Pre serve, 2-Dose Series (mySBX) 10/01/2021,05/05/2021,09/10/2020,08/03 Covid-19, Mrna, Lnp-s, Pf, B ivalent, 30 Mcg, IM, 12 yrs and above (mySBX) 05/10/2022 Pneumococcal Conjugate Vacc, 13 Valent (Prevnar) 06/24/2015 Pneumococcal Polysaccharide PPV23 (Pneumovax) 04/29/2013 SEASONAL INFLUENZA, PF, 6 M & Above, IM , (FLULAVAL or FLUZONE) 05/03/2019,04/18/2018,07/14/2017 05/03/2020 Season Influenza, Cell Culte r, 18+ Yrs, With Preserv (Flucelvax) 06/14/2013 Season Influenza, Quad, PF, Adjuvanted, 65+ Yrs, IM (FLUAD) 04/09/2020 Seasonal Influenza, Quadriva lent Hd (Fluzone Hd) [...] Miscellaneous Notes * Telephone Encounter - Tania Mitchell DO - 05/10/2023 8:21 AM ESTSigned Prescriptions: Disp Refills HYDROcodone-Acetaminophen 5-325 MG Oral Ta*30 Tab*0 Sig: Take 1 Tablet by mouth every 6 hours as needed for Pain, Mild. Authorizing Provider: TANIA MITCHELL * Telephone Encounter - Diego Jones [facility] - 05/09/2023 8:48 AM ESTPending Prescriptions: Disp Refills HYDROcodone-Acetaminophen 5-325 MG Oral Ta*30 Tab*0 Sig: Take 1 Tablet by mouth every 6 hours as needed for Pain, Mild. * Telephone Encounter - Diego Jones [facility] - 05/09/2023 8:48 AM EST I have reviewed the patients controlled substance dispensing history in the Prescription Drug Monitoring Program in compliance with the [facility] regulations before prescribing a controlled substance. PDMP checked on 05/09/2023. Pending Prescriptions: Disp Refills HYDROcodone-Acetaminophen 5-325 MG Oral T*30 Tab*0 Sig: Take 1 Tablet by mouth every 6 hours as needed for Pain, Mild. Last Visit: 04/20/2023 (in office), Visit date not found (telemedicine) Next Visit: 08/17/2023 Date medication was last filled: 04/03/23 Date medication is due for refill: 04/09/23 Pharmacy: [id number] [...] Results Review. Please approve if appropriate. Thank You, Diego Christianson [facility] Clinical Pharmacist [facility]acy Services ([facility]PS) (formerly Telepharmacy) 05/09/2023, 8:48 AM * Telephone Encounter - Sierra Dodson PHARM Tech - 05/08/2023 9:58 AM EST Did you pend patient's preferred [...] appointment Last date the medication was ordered: 04/03/2023 Is this request for a controlled substance?Yes, What was the last refill date 04/03/2023 w/ quantity 30 and dosage 5-325 mg and Urine Drug Screen was completed Urine Drug Screen: Results for orders [...] Results Component Value Date/Time CREAT 1.5 (H) 04/20/2023 11:48 AM CREAT 1.6 (H) 03/06/2023 03:17 PM CREAT 1.5 (H) 04/09/2020 11:08 AM POTASSIUM 4.8 04/20/2023 11:48 AM POTASSIUM 4.9 04/09/2020 11:08 AM TSH 1.57 [...] Care Team (Late st Contact Info) Description 05/17/2023 10:00 AM EST Immunization/Injectio n Hematology/Oncology Treatment, [place] [address] [facility] [place] [address] Nurse, Med [address] [facility], [place] [address] 05/24/2023 9:40 AM EST Laboratory Laboratory, [facility] [address] [facility] [place] [id number] [facility] [address] [facility] [place], [place] [address] 05/24/2023 10:00 AM EST Office Visit Cardiology, [facility] [address] [facility] [place] [address] Ning Devlin CR[facility] [place] [address] 06/14/2023 10:00 AM EST Immunization/Injectio n Hematology/Oncology Treatment, [place] [address] [facility], [place] [address] Nurse, Med [address] [facility], [place] [address] 07/05/2023 7:15 AM EST Cardiac Studies Cardiac Studies, [facility] [address] [facility] [place] [address] 07/13/2023 11:00 AM EST Cardiac Studies Cardiology, [facility] [address] [facility] [place] [address] [facility] [address] [facility] [place] [address] 07/18/2023 11:00 AM EST Office Visit Cardiology, [facility] [address] [facility] [place] [address] Rosa Tyler PA-C [address] [place] [address] 08/08/2023 11:15 AM EST Office Visit Hematology/Oncology [facility] [place] [address] [place] [address] Rubin Rendon MD [address] [place] [address] 08/17/2023 9:30 AM EDT Office Visit Family Practice, [place] [address] [facility], [place] [address] Tania Mitchell DO [address] [facility], [place] [id number] 10/23/2023 10:00 AM EDT Nurse Only Ancillary Department, [place] [address] [facility], [place] [id number] [place], Nurse Annual Wellness [address] [facility] [place] [id number] Scheduled Procedures Name Priority Associated Diagnoses Date/Ti [...] Additional history exists CKD PHOS USE SMARTSET 06428 02/11/2024 09/0 01/2023, 10/17/2022, 04/12/2021, Additional history exists CKD HGB USE SMARTSET 72266 04/07/202404/07, 04/06/2023, 04/06/2023, Additional history exists DXA Scan 11/22/2029 [...] this encounter Medical Devices Implanted Type Area Complaint Supervisor Device Identifier Shelf Expiration Date Model / Serial / Lot Lens 21.0 Mx60 - [id number] Implanted:Qty: 1 on 03/23/2016 by Jax Theodore MD at OR [facility] [employer] : SURGICAL 10/02/2018 MX60-21.0 / [id number] / [id number] Lens 21.5 Mx60 - [id number] - [id number] Implanted:Qty: 1 on 04/20/2016 by Jax Theodore MD at OR [facility] Right: Eye [employer] : SURGICAL 09/02/2018 MX60-21.5 / [id number] / [id number] Valve Marni 3 Ultra 23mm - [id number] Implanted:Qty: 1 on 04/06/2023 by Payam Amor MD at [facility]ARDIAC [facility]S [facility] [employer] [id number] 01/31/2024 [id number] / / documented as of this encounter [...] and were consensually agreed upon. Care Teams Tool Keeper Relationship Specialty Start Date End Date Tania Mitchell DO [address] [facility] [place] [address] PCP - General Family Medicine 07/10/18 documented as of this encounter
--- OUTSIDE RECORDS SUMMARY | 2023-06-11 13:22 | External Medical Summary ---
Author Name Unknown Address Unknown Organization [id number]:[facility] [place] [facility] [address] [place] [address] Laboratory Report Ordering Provider Test Date Status DARION MARIN 04/20/2023 11:48:58 Final Observation Date Value Abnormality Reference (Units ) Status BUN 04/20/2023 11:48:58 39 Above high normal 6-20 (mg/dL) Final Creatinine 04/20/2023 11:48:58 1.5 Above high normal 0.5-1.0 (mg/dL) Final Glomerular filtration rate/1.73 sq M.predicted [Volume Rate/Area] in Serum, Plasma or Blood by Creatinine-based formula (CKD-EPI) 04/20/2023 11:48:58 33 Below low normal >=60 (mL/min) Final eGFR is calculated based on the CKD-EPI 2020 equation SODIUM 04/20/2023 11:48:58 138 135-146 (m mol/L) Final Potassium 04/20/2023 11:48:58 4.8 3.5-5.1 (m mol/L) Final Cl 04/20/2023 11:48:58 102 98-107 (mm ol/L) Final CO2 04/20/2023 11:48:58 26 22-32 (mmo l/L) Final Anion gap 04/20/2023 11:48:58 10 7-15 (mmol /L) Final Glucose 04/20/2023 11:48:58 118 70-120 (mg /dL) Final Calcium 04/20/2023 11:48:58 9.6 8.4-10.2 ( mg/dL) Final Performing Location [facility] [place] [facility] [address] [place] [address]
--- OUTSIDE RECORDS SUMMARY | 2023-06-11 13:22 | External Medical Summary ---
Author Name Unknown Address Unknown Organization [id number][place] [facility] [place] [facility] [address] [place] [address] Laboratory Report Ordering Provider Test Date Status BAKARI PINEDO 05/24/2023 09:40:21 Final Exclude Heart Failure: <300 pg/mL
Diagnose Heart Failure:
Age <50 yr: >450 pg/mL
50-75 yr: >900 pg/mL
>75 yr: >1800 pg/mL
GFR is 30-59 mL/min: >1200 pg/mL or Age- adjusted values
GFR <30 mL/min: do not use, not reliable

Prognostic threshold: 1000 pg/mL Observation Date Value Abnormality Reference (Units ) Status BNP, Pro-hormone 05/24/2023 09:40:21 648 Above high no rmal <300 (pg/mL) Final Performing Location [facility] [facility] [place] [facility] [address] [place] [address]
--- OUTSIDE RECORDS SUMMARY | 2023-06-11 13:22 | External Medical Summary ---
Author Name Unknown Address Unknown Organization [id number]:[facility]ORY [facility] [place] - [facility] [address] [facility] [facility] [address] [place] [address] Laboratory Report Ordering Provider Test Date Status DARION MARIN 04/20/2023 11:48:58 Final Observation Date Value Abnormality Reference (Units ) Status HbA1C 04/20/2023 11:48:58 7.1 Above high normal 4. 0-5.6 (%) Final The use of HbA1c to monitor glycemic status is based on normal hemoglobin and HbA composition. This test should not be used in patients with abnormal hemoglobin that affects the half life of the red blood cell or the in vivo glycation rates. Glucose, estimated average 04/20/2023 11:48:58 157 Above high normal <126 (mg/dL) Fin al Performing Location LABORATORY [facility] [place] - [address] [facility] [place] [address]
--- OUTSIDE RECORDS SUMMARY | 2023-06-11 13:22 | External Medical Summary | Summary of Care ---
Author Name Unknown Organization [facility] Address [address] [facility] [place] [address] Phone [phone] Care Team Providers Care Bit Bender Name Role Phone Chelsey Mitchell DO Primary Care Provider [phone] Reason for Referral * Evaluate & Treat - Unlimited Visits (Within 10 days (routine)) - Pending Review Specialty Diagnoses / Procedures Referred By Contac neva Referred To Contact CARDIAC REHAB / Cardiology Diagnoses Severe aortic stenosis History of transcatheter aortic valve replacement (TAVR) Ning Devlin CRNP [address] [place] [address] Referral ID Status Reason Start Date Expiration Date Visits Requested Visits Authorized [id number] Pending Review Specialty Services Required [phone] Question Answer Referral Priority Within 10 days (routine) Where should this appointment be scheduled? [facility] Cardiac Rehabilitation Modality Virtual Based Cardiac Rehab Only Identify Cardiac Risk Low to Moderate Risk * Precert (Within 10 days (routine)) - Pending Review Specialty Diagnoses / Procedures Referred By Contac t Referred To Contact Cardiac Studies Diagnoses Severe aortic stenosis History of transcatheter aortic valve replacement (TAVR) Procedures ECHO, COMPLETE (2D), TRANS-THORACIC Ning Devlin CRNP [address] [place] [address] Referral ID Status Reason Start Date Expiration Date Visits Requested Visits Authorized [id number] Pending Review Precert 05/06/[phone] Reason for Visit * Reason Comments Follow Up Encounter Details Date Type Department Care Team (Latest Contact Info) Description 05/24/2023 10:00 AM EST Office Visit Cardiology, [facility] [address] [place] [address] Ning Devlin CRNP [address] [place] [address] Severe aortic stenosis*; History of transcatheter aortic valve replacement (TAVR); Coronary artery disease involving cahto coronary artery of cahto heart without angina pectoris; HTN, goal below 140/90; Dyslipidemia, goal LDL below 70; SSS (sick sinus syndrome) (HCC); Cardiac pacemaker in situ Allergies Active Allergy Reactions Criticality Noted Date Comments Bee Venom Abdominal pain,Edema face/lips/tongue High 02/17/2011 Sulfa Antibiotics Rash Medium 12/26/2007 documented as of this encounter (statuses as of 05/24/2023) Medications Medication Sig Dispensed Refills Start Date [...] ONCE DAILY 90 Tablet 1 05/10/2023 Active HYDROcodone-Acetami nophen 5-325 MG Oral TabletIndications:G [...] by cardiology.. 45 Tablet 11 05/24/2023 Active hydroCHLOROthiazide 25 MG Oral Tablet (Hydrodiuril) TAKE HALF TABLET BY MOUTH DAILY 45 Tablet 2 09/20/2022 05/24/20 Discontinu ed(Medicat ion/Dose Changed) documented as of this encounter (statuses as of 05/24/2023) Active Problems Problem Noted Date Diagnosed Date [...] as of this encounter (statuses as of 05/24/2023) Resolved Problems Problem Noted Date Diagnosed Date [...] as of this encounter (statuses as of 05/24/2023) Immunizations Name Administration Dates Next Due COVID-19 [...] Passive Smoke Exposure: Never Smokeless Tobacco: Never Tobacco Cessation:Counseling Given: Not Answered Alcohol Use Standard Drinks/Week Comments No 0 [...] on file documented as of this encounter Last Filed Vital Signs Vital Sign Reading Time Taken Comments Blood Pressure 144/76 05/24/2023 9:50 AM EST Pulse 68 05/24/2023 9:50 AM EST Temperature - - Respiratory Rate 14 05/24/2023 9:50 AM EST Oxygen Saturation - - Inhaled Oxygen Concentration - - Weight 84.8 kg (187 lb) 05/24/2023 9:50 AM EST Height - - Body Mass Index 34.2 04/06/2023 8:20 AM EDT documented in this encounter Functional Status Functional Status Response [...] No 04/06/2023 documented as of this encounter Patient Instructions * Patient Instructions* Ning Devlin CRNP - 05/24/2023 10:11 AM EST STOP HCTZ Start Lasix. Take 2 tablets (40 mg) x2 days Then reduce to 1 tablet (20 mg) per day there after. Take BP if you feel off balance documented in this encounter Progress Notes * Ning Devlin CRNP - 05/24/2023 10:00 AM EST Valve Clinic Cardiology Outpatient Clinic Note 05/24/2023 Patient disposition: 1 month post TAVR Primary Sand Tester: Dr. Sparks Past medical history: Severe aortic stenosis, s/p TAVR (#23 mm Blanton Marni S3 Ultra valve--over inflated by 1cc), 04/06/2023 at [facility] with Dr. Amor CAD, Mild single-vessel nonobstructive CAD with prox RCA 20% stenosis, remainder of coronaries are angiographically normal per pre TAVR catheterization 02/10/2023 Hypertension Dyslipidemia Sick sinus syndrome status post dual-chamber permanent pacemaker 01/2020 Chronic low back pain History of pancreatic head neuroendocrine tumor, on treatment with Sandostatin HPI 87-year-old female presenting to the valve clinic today in close follow-up after TAVR. Hospital course copied below: HOSPITAL COURSE (focused): Magdalena Payan was admitted to the hospital after TAVR procedure (#23 mm Blanton Marni S3 Ultra valve) for monitoring. She remained stable post-procedurally without complication. She is ready for discharge to home on 04/07/2023 with close PCP and Cardiology follow-up as requested. Operations & Procedures: TAVR (04/06/2023) Man Interpretation (focused): PROCEDURES: Successful transfemoral implantation of a # 23 mm Blanton Marni S3 Ultra valve (overinflated by one cc) Placement of temporary venous pacemaker Arterial access site closure with dual Perclose Proglide devices Selective angiography of the right common iliac artery Today the patient presents with some concerns regarding shortness of breath and fatigue. Notes thatsheron is extremely active at home taking care of things but if she has a particularly busy day the next day she will be more tired. Denies exertional chest pain but will occasionally have twinges of discomfort that have been ongoing for quite some time. Shortness of breath is mostly exertional. Denies lower extremity edema but does have some abdominal bloating, pants are fitting tighter. No palpitations. Does occasionally feel off balance no falls. Ambulates with a cane. No fever, chills, cough, hematochezia, melena, or hemoptysis. She states she is compliant with all medications, and offers no side effects. Denies tobacco and alcohol use. Does not follow with a dentist routinely-- has full dentures. Denies bleeding issues. Denies any known anesthesia issues. Of note she does have pancreatic cancer and follows with oncology for treatments. Current Outpatient Medications Medication Sig Dispense Refill ASPIRIN 81 MG PO TABS one a day Vitamin D (Cholecalciferol) 10 MCG (400 UNIT) Oral Tablet Chewable Take 1 Tablet by mouth in the morning. Vitamin C 100 MG Oral Tablet Chewable Take 1 Tablet by mouth in the morning. Adult Gummy Oral Tablet Chewable Take 2 Each by mouth daily. Acetaminophen 500 MG Oral Tablet (Tylenol) Take 1 Tablet by mouth every 6 hours as needed. Metoprolol Tartrate 25 MG Oral Tablet (Lopressor) TAKE 1 TABLET BY MOUTH TWICE DAILY 180 Tablet 3 Atorvastatin Calcium 20 MG Oral Tablet (Lipitor) TAKE 1 TABLET BY MOUTH ONCE DAILY 90 Tablet 1 Levothyroxine Sodium 100 MCG Oral Tablet (Levoxyl) take 1 tablet by mouth once daily at least 30 minutes before breakfast or any other medications 90 Tablet 1 Lisinopril 40 MG Oral Tablet TAKE 1 TABLET BY MOUTH ONCE DAILY 90 Tablet 1 HYDROcodone-Acetaminophen 5-325 MG Oral Tablet Take 1 Tablet by mouth every 6 hours as needed for Pain, Mild. 30 Tablet 0 Omeprazole 40 MG Oral Capsule Delayed Release (PriLOSEC) TAKE 1 CAPSULE BY MOUTH ONCE DAILY 1 hour before the first meal of the day 90 Capsule 3 Furosemide 20 MG Oral Tablet (Lasix) Take 1 Tablet by mouth in the morning. Or as directed by cardiology.. 45 Tablet 11 ONETOUCH ULTRASOFT LANCETS [facility] Use one time a day in the morning. E11.9 1 Box Dosing Unit 11 OneTouch Verio In Vitro Strip (Glucose Blood) use as directed to test blood sugar once a day 100 Strip 2 No current facility-administered medications for this visit. Past Medical History: Diagnosis Date Basal cell carcinoma of skin Maranda Gardner eyebrow. Chronic rhinitis 12/08/06 Dr. De La Rosa History of malignant neuroendocrine tumor duodenum Hypothyroidism Sensorineural hearing loss 12/08/06 Dr. De La Rosa Temporomandibular joint disorders, unspecified 12/08/06 Dr. De La Rosa Vertigo 12/08/06 Dr. De La Rosa Past Surgical History: Procedure Laterality Date ARTHROPLASTY KNEE TOTAL [address] [place] [facility] [place] INJ. FOR CORONARY ANGIOGRAPHY 09/2012 [facility], no significant CAD COLONOSCOPY, DIAGNOSTIC (RECTUM) 02/08/2017 polyp removed not retrieved, diverticulosis/[facility] CORONARY ANGIOGRAPHY W/LEFT HEART CATH Right 02/10/2023 CORONARY ANGIOGRAPHY W/LEFT HEART CATH performed by Miles Zuleta DO at CARDIAC LABS [facility] DILATION AND CURETTAGE (D&C) 1999 after postmenopausal bleeding. EGD, FLEXIBLE, DIAGNOSTIC 02/08/2017 mild-mod inflammation, Schatzki ring, repeat 2 mo/[facility] EGD, FLEXIBLE, DIAGNOSTIC 04/10/2017 mild-mod inflammation on bx, gastric ulcer, repeat 6-8 wks/[facility] EGD, FLEXIBLE, DIAGNOSTIC 05/23/2017 well differentiated neuroendocrine tumor / [facility] EGD, FLEXIBLE, DIAGNOSTIC 08/31/2017 gastritis, repeat 1 yr/[facility] EGD, W/ENDOSCOPIC US N/A 06/08/2017 ESOPHAGOGASTRODUODENOSCOPY (EGD), FLEXIBLE, TRANSORAL, ENDOSCOPIC ULTRASOUND performed by Chapincito Saha MD at ENDOSCOPY [facility] EGD, W/ENDOSCOPIC US N/A 06/22/2018 ESOPHAGOGASTRODUODENOSCOPY (EGD), FLEXIBLE, TRANSORAL, ENDOSCOPIC ULTRASOUND performed by Chapincito Saha MD at ENDOSCOPY [facility] EGD, W/ENDOSCOPIC US N/A 07/24/2018 ESOPHAGOGASTRODUODENOSCOPY (EGD), FLEXIBLE, TRANSORAL, ENDOSCOPIC ULTRASOUND performed by Chapincito Saha MD at ENDOSCOPY [facility] EGD, W/ENDOSCOPIC US N/A 08/06/2019 ESOPHAGOGASTRODUODENOSCOPY (EGD), FLEXIBLE, TRANSORAL, ENDOSCOPIC ULTRASOUND performed by Chapincito Saha MD at ENDOSCOPY [facility] LUMBAR DISC ARTHROPLAST,REMV,ADDL INTERSPCE 2009 Br Rhona, lumbar 3 levels she thinks MOHS IMAGE (BIOMED) [address] Nielsen. REMOVE CATARACT, INSERT LENS PROSTH Right 04/20/2016 EXTRACAPSULAR CATARACT REMOVAL WITH INTRAOCULAR LENS performed by Jax Theodore MD at [facility] REPLACE AORTIC VALVE, PERCUTANEOUS FEMORAL Bilateral 04/06/2023 REPLACE AORTIC VALVE, PERCUTANEOUS FEMORAL performed by Payam Amor MD at CARDIAC LABS [facility] REPLACE AORTIC VALVE, PERCUTANEOUS FEMORAL Bilateral 04/06/2023 REPLACE AORTIC VALVE, PERCUTANEOUS FEMORAL performed by Diego Rosas MD at CARDIAC LABS [facility] Social History Tobacco Use Smoking status: Never Passive exposure: Never Smokeless tobacco: Never Vaping Use Vaping Use: Never used Substance Use Topics Alcohol use: No Drug use: No Review of patient's allergies indicates: Allergen Reactions Bee Venom Abdominal pain and Edema face/lips/tongue Sulfa Antibiotics Rash Review of Systems: See HPI for pertinent positives. All others negative, other than those noted in HPI. Physical Exam BP 144/76 (BP Site: Left Arm, BP Position: Sitting, BP Cuff Size: Large) | Pulse 68 | Resp 14 | Wt 84.8 kg (187 lb) | BMI 34.20 kg/m | BSA 1.93 m General: No acute distress. A+Ox3. HEENT: Normocephalic. Atraumatic. Conjunctiva and sclera clear. NECK: No carotid bruits. No JVD. Carotid upstrokes are brisk. Heart: RRR. +S1, diminished S2. +1/6 systolic murmur. No rubs, gallops. Lungs: Clear to auscultation. No wheezes, rhonchi, rales. Abdomen: Normal bowel sounds. Soft. Nontender. No masses or organomegaly. No abdominal bruits. Extremities: No edema. No clubbing or cyanosis. Pulses: radial=2/4, posterior tibial=2/4, dorsalis pedis = 2/4. NEURO: No focal deficits. PSYCH: Normal. Lab data/imaging study review: Echo POD 1 TAVR 04/07/2022 Interpretation Summary The examination is adequate to evaluate the referral indication. No LV segmental wall motion abnormalities. The qualitative LV ejection fraction is >70% (hyperdynamic). The patient is status post TAVR with Marni type prosthetic valve. Aortic valve prosthesis stenosis is absent. Significant aortic valve prosthesis regurgitation is absent. Cardiac cath PRE TAVR 02/10/2023 Mild, single vessel non-obstructive CAD with prox RCA 20%. Remainder of coronaries are angiographically normal. Echo 12/07/2022 The examination is adequate to evaluate the referral indication. The left ventricular cavity size is normal. The LV wall thickness is moderately increased (concentric). The left ventricular wall motion is normal. The qualitative LV ejection fraction is 65-69% (normal). The aortic valve is moderately calcified. The aortic valve opening is severely reduced. Severe aortic valve stenosis is present. There is mild mitral annular calcification. The proximal ascending thoracic aorta is mildly enlarged. In comparison to prior study of November 08, 2021, aortic valve velocities increased reaching criteria for severe aortic stenosis Ao V2 max: 414.3 cm/sec Ao mean P.8 mmHg CHANA(I,D): 0.74 cm2 Impression/Plan: 1. Severe aortic stenosis 2. History of transcatheter aortic valve replacement (TAVR) -Severe aortic stenosis, s/p TAVR (#23 mm Blanton Marni S3 Ultra valve--over inflated by 1cc), 04/06/2023 at [facility] with Dr. Amor -NYHA class 2 1. Has top and bottom dentures-- No routine dental work should be completed in the first 6 months after TAVR. However if an acute issue arises, patient is to alert the valve team. Antibiotics are needed for all routine dental work. 2. Slowly increase activity--recommend cardiac rehab. Patient prefers [facility] at home cardiac rehab. 3. Aspirin continued indefinitely 4. Repeat 1 mos post TAVR echo originally scheduled for 05/30 but canceled and scheduled at the endof June. Will need to move this appointment up. 5. 1 year follow up in valve clinic with echo prior (same day) at with Dr. Amor. 3. Coronary artery disease involving cahto coronary artery of cahto heart without angina pectoris -CAD, Mild single-vessel nonobstructive CAD with prox RCA 20% stenosis, remainder of coronaries areangiographically normal per pre TAVR catheterization 02/10/2023 -Stable, no angina. 4. HTN, goal below 140/90 Blood pressure controlled on multidrug regimen. 1. Continue lisinopril and metoprolol as ordered 2. Patient appears mildly hypervolemic. Weight is up about 5 lb and she is having abdominal bloating. Will discontinue hydrochlorothiazide and start Lasix. She was instructed to take 40 mg x 2 days then reduce to 20 mg daily thereafter. Will plan on a repeat BMP in 1 week. 5. Dyslipidemia, goal LDL below 70 Controlled, LDL 65. 1. Continue atorvastatin 20 mg daily 6. SSS (sick sinus syndrome) (HCC) 7. Cardiac pacemaker in situ -Sick sinus syndrome status post dual-chamber permanent pacemaker 01/2020. The patient agrees to the above plan and will call with additional questions or concerns. ER with all emergencies advised. Follow-up: Return in about 1 year (around 05/24/2024). | Check-out note: 1 year (05/2024) with Dr. Amor in the valve clinic at . MOVE UP 06/2022 echo appt NEEDS DONE JOHANA Patient needs an ADDITIONAL echo apt 05/2024 (make same day/prior to Zuleyma appt 05/2024). Keep RR appt I spent a total of 40 minutes on the date of service in preparation, delivery, and documentation ofthe care provided to Magdalena Payan excluding any time spent in the performance of separately billed services. ISHAAN Hanson [facility], Department of Cardiology This chart was completed in part utilizing [employer] Speech Voice Recognition Software. Grammatical errors, random word insertions, prounoun errors, and incomplete sentences are an occasional consequence of this system due to software limitations, ambient noise, and hardware issues. Any formal questions or concerns about the content, text, or information contained within the body of this dictation should be directly addressed to the provider for clarification. documented in this encounter Nursing Notes * Alyssa Soares CMA - 05/24/2023 9:48 AM EST Examination Room: 7 Name: Magdalena Payan Date of : (1935). Reason for Visit: 1M f/u s/p TAVR Interim Hospitalization(s): none Problems/Concerns: Has felt off balance for the past 3 weeks, no dizziness, lightheadedness, or falls. Fatigue. Chest Pain/SOB: Occasional substernal CP or squeezing sensation in chest. Non- exertional, comes andgoes, and lasts 5-10 mins. Feels more SOB than prior, with walking and exertion. [facility] Discussed: Not applicable My [facility] is a way you can talk to your provider online through e-mail. Would you like to sign up? I can activate it for you? ALREADY ACTIVE Patient was instructed to not get up on the exam table until directed and assisted by their provider; patient is to remain seated in the chair/ wheelchair/ exam table for fall prevention and safety reasons. Patient is aware to have assistance to step down off exam table with personnel. Patient voiced full comprehension of instructions. documented in this encounter Plan of Treatment Upcoming Encounters Date Type Department Care Team (Late st Contact Info) Description 05/25/2023 10:30 AM EST Cardiac Studies Cardiac Studies, [facility] [address] [place] [address] 06/14/2023 10:00 AM EST Immunization/Injec tion Hematology/Oncology Treatment, [place] [address] [place] [address] Nurse, Med [address] [place] [address] 07/05/2023 7:15 AM EST Cardiac Studies Cardiac Studies, [facility] [address] [facility] [place] [address] 07/13/2023 11:00 AM EST Cardiac Studies Cardiology, [facility] [address] [place] [address] Rashida, Pacer Clinic [facility] [address] [place] [address] 07/18/2023 11:00 AM EST Office Visit Cardiology, [facility] [address] [place] [address] Rosa Tyler PA-C [address] [place] [address] 08/08/2023 11:15 AM EST Office Visit Hematology/Oncology [facility] [address] [facility] [place] [address] Rubin Rendon MD [address] [facility] [place] [address] 08/17/2023 9:30 AM EDT Office Visit [facility], [place] [address] [place] [id number] Chelsey Mitchell DO [address] [place] [address] 10/23/2023 10:00 AM EDT Nurse Only Ancillary Department, [place] [address] [facility] [place] [address] [place] Nurse [facility] [address] [place] [address] 05/09/2024 9:30 AM EST Cardiac Studies Cardiac Studies, [facility] [address] [facility] [place] [address] Pending Results Name Type Priority Associated Diagnoses Date /Time MAGNESIUM Lab Routine Severe aortic stenosis History of transcatheter aortic valve replacement (TAVR) 05/24/2023 9:40 AM EST BNP, NT-PRO Lab Routine Severe aortic stenosis History of transcatheter aortic valve replacement (TAVR) 05/24/2023 9:40 AM EST IRON SCREEN, INCLUDING TIBC Lab Routine Severe aortic stenosis History of transcatheter aortic valve replacement (TAVR) 05/24/2023 9:40 AM EST FERRITIN Lab Routine Severe aortic stenosis History of transcatheter aortic valve replacement (TAVR) 05/24/2023 9:40 AM EST Scheduled Orders Name Type Priority Associated Diagnoses Orde r Schedule ECHO, COMPLETE (2D), TRANS-THORACIC Echocardiology Routine Severe aortic stenosis History of transcatheter aortic valve replacement (TAVR) Expected: 05/06/2024, Expires: 06/24/2025 MAGNESIUM Lab Routine Severe aortic stenosis History of transcatheter aortic valve replacement (TAVR) Expected: 05/24/2023, Expires: 05/24/2024 BNP, NT-PRO Lab Routine Severe aortic stenosis History of transcatheter aortic valve replacement (TAVR) Expected: 05/24/2023, Expires: 05/24/2024 IRON SCREEN, INCLUDING TIBC Lab Routine Severe aortic stenosis History of transcatheter aortic valve replacement (TAVR) Expected: 05/24/2023, Expires: 05/24/2024 FERRITIN Lab Routine Severe aortic stenosis History of transcatheter aortic valve replacement (TAVR) Expected: 05/24/2023, Expires: 05/24/2024 Scheduled Procedures Name Priority Associated Diagnoses Date/Ti me ESOPHAGOGASTRODUODENOSCOPY ( EGD), FLEXIBLE, TRANSORAL, ENDOSCOPIC ULTRASOUND Recall Duodenal nodule Scheduled Referrals Name Type Priority Associated Diagnoses Orde r Schedule CARDIAC REHAB REFERRAL OP Referral Within 10 days (routine) Severe aortic stenosis History of transcatheter aortic valve replacement (TAVR) Ordered: 05/24/2023 Health Maintenance Due Date Last Done Comments [...] Additional history exists CKD PHOS USE SMARTSET 60493 02/11/2024 09/0 01/2023, 10/17/2022, 04/12/2021, Additional history exists CKD HGB USE SMARTSET 88536 05/24/202405/24, 04/07/2023, 04/06/2023, Additional history exists DXA [...] this encounter Medical Devices Implanted Type Area Wellness Coach Device Identifier Shelf Expiration Date Model / Serial / Lot Lens 21.0 Mx60 - [id number] Implanted:Qty: 1 on 03/23/2016 by Jax Theodore MD at [facility] [employer] : SURGICAL 10/02/2018 MX60-21.0 / [id number] / [id number] Lens 21.5 Mx60 - [id number] - [id number] Implanted:Qty: 1 on 04/20/2016 by Jax Theodore MD at [facility] Right: Eye [employer] : SURGICAL 09/02/2018 MX60-21.5 / [id number] / [id number] Valve Marni 3 Ultra 23mm - [id number] Implanted:Qty: 1 on 04/06/2023 by Payam Amor MD at [facility]ARDIAC LABS [facility] [employer] [id number] 01/31/2024 [id number] / / documented as of this encounter Visit Diagnoses Diagnosis Severe aortic stenosis- Primary Aortic valve disorders History of transcatheter aortic valve replacement (TAVR) Coronary artery disease involving cahto coronary artery of cahto heart without angina pectoris HTN, goal below 140/90 Unspecified essential hypertension Dyslipidemia, goal LDL below 70 Other and unspecified hyperlipidemia SSS (sick sinus syndrome) (HCC) Sinoatrial node dysfunction Cardiac pacemaker in situ documented in this encounter Advance Directives Latest [...] and were consensually agreed upon. Care Teams Bit Bender Relationship Specialty Start Date End Date Chelsey Mitchell DO [address] [place] [address] PCP - General Family Medicine 07/10/18 documented as of this encounter"
--- OUTSIDE RECORDS SUMMARY | 2023-06-11 13:22 | External Medical Summary | Summary of Care ---
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 Procedures [place] OCTREOTIDE INJECTION, DEPOT Rubin Rendon MD [address] [place] [phone] Anc Hem/Onc Geetha Weinstein DEPT CLOSED - 04/18/[address] [place] [address] [phone] Referral ID Status Reason Start Date Expiration Date V isits Requested Visits Authorized [id number] Authorized 03/20/2023 03/20/2024 99 13 Encounter Details Date Type Department Care Team (Latest Contact Info) Description 04/19/2023 10:00 AM EST Immunization/ Injection Hematology/Oncology Treatment, [place] [address] [place] [address] Nurse, Med [address] [phone] Primary malignant neuroendocrine neoplasm of duodenum (HCC)*; Primary pancreatic neuroendocrine tumor Allergies Active Allergy Reactions Criticality Noted Date Comments Bee Venom Abdominal pain,Edema face/lips/tongue High 02/17/2011 Sulfa Antibiotics Rash Medium 12/26/2007 documented as of this encounter (statuses as of 04/19/2023) Medications Medication Sig Dispensed Refills Start Date [...] TWICE DAILY 180 Tablet 3 09/02/2022 Active hydroCHLOROthiazide 25 MG Oral Tablet (Hydrodiuril) TAKE HALF TABLET BY MOUTH DAILY 45 Tablet 2 09/20/2022 Active Lisinopril 40 MG Oral TabletIndications:HT N, goal below 130/80 TAKE 1 TABLET BY MOUTH ONCE DAILY 90 Tablet 1 11/16/2022 Active Omeprazole 40 MG Oral Capsule Delayed Release (PriLOSEC)Indication s:Hx of gastric ulcer TAKE 1 CAPSULE BY MOUTH ONCE DAILY 1 hour before the first meal of the day 90 Capsule 1 11/30/2022 Active OneTouch Verio In Vitro Strip (Glucose Blood) use as directed to test blood sugar once a day 100 Strip 2 02/01/2023 Active HYDROcodone-Acetamin ophen 5-325 MG Oral TabletIndications:Ge neralized OA,Osteoarthritis of multiple joints, unspecified osteoarthritis type Take 1 Tablet by mouth every 6 hours as needed for Pain, Mild. 30 Tablet 0 04/03/2023 Active Atorvastatin Calcium 20 MG Oral Tablet (Lipitor)Indications :Dyslipidemia, goal LDL below 100 TAKE 1 TABLET BY MOUTH ONCE DAILY 90 Tablet 1 04/03/2023 Active Levothyroxine Sodium 100 MCG Oral Tablet (Levoxyl)Indications :Hypothyroidism take 1 tablet by mouth once daily at least 30 minutes before breakfast or any other medications 90 Tablet 1 04/12/2023 Active documented as of this encounter (statuses as of 04/19/2023) Active Problems Problem Noted Date Diagnosed Date [...] as of this encounter (statuses as of 04/19/2023) Resolved Problems Problem Noted Date Diagnosed Date [...] as of this encounter (statuses as of 04/19/2023) Immunizations Name Administration Dates Next Due COVID-19 mRNA, LNP-s, No Pre serve, 2-Dose Series (Chorus) 10/01/2021,05/05/2021,09/10/2020,08/03 Covid-19, Mrna, Lnp-s, Pf, B ivalent, 30 Mcg, IM, 12 yrs and above (Chorus) 05/10/2022 Pneumococcal Conjugate Vacc, 13 Valent (Prevnar) [...] No 04/06/2023 documented as of this encounter Nursing Notes * Kate Sweet LPN - 04/19/2023 10:24 AM EST Room 4. Pt arrived for Sandostatin 20mg injection. Administered in L dorsogluteal. Pt tolerated well. To return in 4 weeks. Discharged in stable condition. documented in this encounter Plan of Treatment Upcoming Encounters Date Type Department Care Team (Late st Contact Info) Description 04/20/2023 10:30 AM EST Office Visit [facility] [address] [place] [address] Chelsey Mitchell, DO [address] [place] [address] 05/17/2023 10:00 AM EST Immunization/Injectio n Hematology/Oncology Treatment, [place] [address] [place], [place] [address] Nurse, Med 4 200 [facility], [place] [address] 05/24/2023 9:40 AM EST Laboratory Laboratory, [facility] [address] [facility] [place] [phone] Weston Lozas [facility] [place] [address] 05/24/2023 10:00 AM EST Office Visit Cardiology, [facility] [address] [facility] [place] [address] Ning Devlin CRNP [address] [place] [address] 05/30/2023 3:30 PM EST Cardiac Studies Cardiac Studies, [facility] [address] [facility] [place] [address] 06/14/2023 10:00 AM EST Immunization/Injectio n Hematology/Oncology Treatment, [place] [address] [facility] [address] [place] [address] Nurse, Med 200 [facility] [place] [address] 07/13/2023 11:00 AM EST Cardiac Studies Cardiology, [facility] [address] [facility] [place] [address] Marielaallkristen, Pacer Clinic [facility] 132 [facility] [place] [address] 07/18/2023 11:00 AM EST Office Visit Cardiology, [facility] 132 [facility] [place] [address] Rosa Tyler PA-C 132 [facility] [place] [address] 08/08/2023 11:15 AM EST Office Visit Hematology/Oncology [facility] [address] [place] [address] Rubin Rendon MD [address] [place] [address] 08/17/2023 9:30 AM EDT Office Visit [address], [place] [phone] Chelsey Mitchell, DO [address] [place] [facility] [address] 10/23/2023 10:00 AM EDT Nurse Only Ancillary Department, [place] [address] [facility] [address] [place], Nurse Annual Wellness [address] [place] [facility] [place] [address] Scheduled Procedures Name Priority Associated Diagnoses Date/Ti me ESOPHAGOGASTRODUODENOSCOPY ( EGD), FLEXIBLE, TRANSORAL, ENDOSCOPIC ULTRASOUND Recall Duodenal nodule Health Maintenance Due Date Last Done Comments DTaP,Tdap,and Td Vaccines (1 - Tdap) 1954 Hepatitis B (1 of 3 - Risk 3-dose series) 1997 COVID-19 Vaccine ( season) 2023 05/10/2022, 10/01/2021, 05/05/2021, Additional history exists HbA1c 06/10/2023 12/08/2022, 04/05, 10/13/2021, Additional history exists Diabetic Eye Exam 10/04/2023 10/03/2022, 06/21/2019 Albumin/Creatinine Ratio 10/18/2023 10/17/2022, 04/05 Depression Screening 10/18/2023 10/17/2022 Diabetic Foot Exam 10/18/2023 10/17/2022, 0 10/07/2020, 08/12/2019, Additional history exists TSH 10/18/2023 10/17/2022, 10/03, 11/26/2020, Additional history exists CKD PHOS USE SMARTSET 91098 02/11/2024 09/0 01/2023, 10/17/2022, 04/12/2021, Additional history exists CKD HGB USE SMARTSET 06991 04/07/202404/07, 04/06/2023, 04/06/2023, Additional history exists DXA [...] this encounter Medical Devices Implanted Type Area Wildlife Biology Internship Device Identifier Shelf Expiration Date Model / Serial / Lot Lens 21.0 Mx60 - [id number] Implanted:Qty: 1 on 03/23/2016 by Jax Theodore MD at OR [facility] [employer] : SURGICAL 10/02/2018 MX60-21.0 / [id number] / [id number] Lens 21.5 Mx60 - [id number] - [id number] Implanted:Qty: 1 on 04/20/2016 by Jax Theodore MD at OR 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 Care Teams Rn Behavioral Health Relationship Specialty Start Date End Date Chelsey Mitchell DO [address] [facility] [place] [address] PCP - General Family Medicine 07/10/18 documented as of this encounter
--- OUTSIDE RECORDS SUMMARY | 2023-06-11 13:22 | External Medical Summary ---
Author Name Unknown Address Unknown Organization K01:[facility] [place] [address] [address] Laboratory Report Ordering Provider Test Date Status HANY RALPH 04/20/2023 11:48:58 Final Observation Date Value Abnormality Reference (Units ) Status MYCODE SPECIMEN-SST 04/20/2023 11:48:58 Freezing of extracted DNA, whole blood and/or serum. Final Performing Location [facility] [place] [address] [place] [address]
--- OUTSIDE RECORDS SUMMARY | 2023-06-11 13:22 | External Medical Summary | Summary of Care ---
Author Name Unknown Organization [facility] Address [address] [facility] [facility] [address] Phone [phone] Care Team Providers Care Food Safety Specialist Name Role Phone Chelsey Mitchell DO Primary Care Provider [phone] Reason for Visit * Reason Comments Outpatient Testing Encounter Details Date Type Department Care Team (Late st Contact Info) Description 05/24/2023 9:40 AM EST Laboratory Laboratory, [facility] [address] [facility] [phone] [employer] 132 [place] [address] History of transcatheter aortic valve replacement (TAVR) Allergies Active Allergy Reactions Criticality Noted Date [...] MOUTH DAILY 45 Tablet 2 09/20/2022 Active Thinkr In Vitro Strip (Glucose Blood) use as [...] the day 90 Capsule 3 05/24/2023 Active documented as of this encounter [...] mRNA, LNP-s, No Pre serve, 2-Dose Series (Cybera) 10/01/2021,05/05/2021,09/10/2020,08/03 Covid-19, Mrna, Lnp-s, Pf, B ivalent, 30 Mcg, IM, 12 yrs and above (Cybera) 05/10/2022 Pneumococcal Conjugate Vacc, 13 Valent (Prevnar) [...] Upcoming Encounters Date Type Department Care Team (Latest Contact Info) Description 05/24/2023 10:00 AM EST Office Visit Cardiology, [facility] [address] [place] [address] Ning Devlin CRNP [address] [place] [address] Valve Clinic Cardiology Outpatient Clinic Note 06/14/2023 10:00 AM EST Immunization/Inj ection Hematology/Oncology Treatment, [place] [address] [place] [address] Nurse, Med 4 [address] [place] [address] 07/05/2023 7:15 AM EST Cardiac Studies Cardiac Studies, [facility] [address] [place] [address] 07/13/2023 11:00 AM EST Cardiac Studies Cardiology, [facility] 132 [facility] [place] [address] [place], Pacer Clinic [facility] [address] [place] [address] 07/18/2023 11:00 AM EST Office Visit Cardiology, [facility] 132 [facility] [place] [address] Rosa Tyler PA-C 132 [facility] [place] [address] 08/08/2023 11:15 AM EST Office Visit Hematology/Oncology [facility] Corinna [place] [address] [place] [address] Rubin Rendon MD [address] [place] [address] 08/17/2023 9:30 AM EDT Office Visit [address] [phone] Chelsey Mitchell, DO [address] [facility] [address] 10/23/2023 10:00 AM EDT Nurse Only Ancillary Department, [place] [address] [facility] [address] [place], Nurse Annual Wellness [address] [facility] [address] Pending Results Name Type Priority Associated Diagnoses Date /Time CBC Lab Routine History of transcatheter aortic valve replacement (TAVR) 05/24/2023 9:40 AM EST BASIC METABOLIC PANEL Lab Routine History of transcatheter aortic valve replacement (TAVR) 05/24/2023 9:40 AM EST Scheduled Procedures Name Priority Associated Diagnoses Date/Ti me ESOPHAGOGASTRODUODENOSCOPY ( EGD), FLEXIBLE, TRANSORAL, ENDOSCOPIC ULTRASOUND Recall Duodenal nodule Health Maintenance Due Date Last Done Comments DTaP,Tdap,and Td Vaccines (1 - Tdap) 1954 Hepatitis B (1 of 3 - Risk 3-dose series) 1997 COVID-19 Vaccine (2022- season) 2023 05/10/2022, 10/01/2021, 05/05/2021, Additional history exists Diabetic Eye Exam 10/04/2023 10/03/2022, 06/21/2019 Albumin/Creatinine Ratio 10/18/2023 10/17/2022, 04/05 Depression Screening 10/18/2023 10/17/2022 Diabetic Foot Exam 10/18/2023 10/17/2022, 0 10/07/2020, 08/12/2019, Additional history exists TSH 10/18/2023 10/17/2022, 10/03, 11/26/2020, Additional history exists HbA1c 10/19/2023 04/20/2023, 07/0 11/2022, 04/15/2022, Additional history exists CKD PHOS USE SMARTSET 13448 02/11/2024 09/01/2023, 10/17/2022, 04/12/2021, Additional history exists CKD HGB USE SMARTSET 26273 04/07/202404/07, 04/06/2023, 04/06/2023, Additional history exists DXA [...] this encounter Medical Devices Implanted Type Area Restaurant Line Cook Device Identifier Shelf Expiration Date Model / Serial / Lot Lens 21.0 Mx60 - [id number] Implanted:Qty: 1 on 03/23/2016 by Jax Theodore MD at OR [facility] [employer] : SURGICAL 10/02/2018 MX60-21.0 / [id number] / [id number] Lens 21.5 Mx60 - [id number] - [id number] Implanted:Qty: 1 on 04/20/2016 by Jax Theodore MD at [facility] Right: Eye [employer]OM[employer] : SURGICAL 09/02/2018 MX60-21.5 / [id number] / [id number] Valve Marni 3 Ultra 23mm - [id number] Implanted:Qty: 1 on 04/06/2023 by Payam Amor MD at CARDIAC LABS [email or web address] [id number] 01/31/2024 [id number] / / documented as of this encounter Visit Diagnoses Diagnosis History of transcatheter aortic valve replacement (TAVR) documented in this encounter Advance Directives Latest [...] and were consensually agreed upon. Care Teams Food Safety Specialist Relationship Specialty Start Date End Date Chelsey Mitchell DO [address] [place] [address] PCP - General Family Medicine 07/10/18 documented as of this encounter
--- OUTSIDE RECORDS SUMMARY | 2023-06-11 13:22 | External Medical Summary | Summary of Care ---
Author Name Unknown Organization [facility] Address [address] [place] [address] Phone [phone] Care Team Providers Care Produce Department Manager Name Role Phone Tania Mitchell DO Primary Care Provider [phone] Reason for Visit * Reason Comments eRx-Medication Refill Encounter Details Date Type Department Care Team (Late st Contact Info) Description 05/08/2023 Refill [facility] [address] [place] [address] Tania Mitchell DO [address] [place] [address] HTN, goal below 130/80 Allergies Active Allergy Reactions Criticality Noted Date [...] the day 90 Capsule 1 3 Active [facility] Verio In Vitro Strip (Glucose Blood) use [...] other medications 90 Tablet 1 3 Active Lisinopril 40 MG Oral TabletIndications: HTN, goal below 130/80 TAKE 1 TABLET BY MOUTH ONCE DAILY 90 Tablet 1 3 Active Lisinopril 40 MG Oral TabletIndications: [...] mRNA, LNP-s, No Pre serve, 2-Dose Series (Slingbox) 10/01/2021,05/05/2021,09/10/2020,08/03 Covid-19, Mrna, Lnp-s, Pf, B ivalent, [...] Encounter - Tania Mitchell DO - 05/10/2023 8:20 AM ESTSigned Prescriptions: Disp Refills Lisinopril 40 MG Oral Tablet 90 Tab*1 Sig: TAKE 1 TABLET BY MOUTH ONCE DAILY Authorizing Provider: TANIA MITCHELL * Telephone Encounter - Interface, E-Rx Ss Inbound - 05/10/2023 6:06 AM EST Pending Prescriptions: Disp Refills Lisinopril 40 MG Oral Tablet 90 Tab*1 Sig: TAKE 1 TABLET BY MOUTH ONCE DAILY * Telephone Encounter - Wang Mendez [facility] - 05/08/2023 5:18 PM ESTPending Prescriptions: Disp Refills Lisinopril 40 MG Oral Tablet 90 Tab*1 Sig: TAKE 1 TABLET BY MOUTH ONCE DAILY * Telephone Encounter - Wang Mendez W, [facility] - 05/08/2023 5:17 PM EST Unable to authorize medication refills at this time. Patient did not meet protocol requirements. Patient's creatinine is worsening. Please approve if appropriate. CREAT Date Value Ref Range Status 04/20/2023 1.5 (H) 0.5 - 1.0 mg/dL Final 04/07/2023 1.4 (H) 0.5 - 1.0 mg/dL Final 04/06/2023 1.2 (H) 0.5 - 1.0 mg/dL Final Serum creatinine: 1.5 mg/dL (H) 04/20/23 1148 Estimated creatinine clearance: 27.5 mL/min (A) Wang Andrade, Latoya.Ph. Clinical Pharmacist [facility] [phone] 05/08/2023,5:17 PM Pending Prescriptions: Disp Refills Lisinopril 40 MG Oral Tablet 90 Tab*1 Sig: TAKE 1 TABLET BY MOUTH ONCE DAILY Last Visit: 04/20/2023 (in office), Visit date not found (telemedicine) Next Visit: 08/17/2023 If no future appointments scheduled, and last appointment is greater than a year ago, please schedule patient for a follow-up appointment Last date the medication was ordered: 11-16-22 Pharmacy: [id number] [facility] Is this request for a controlled substance?No Urine Drug Screen: Results for orders placed [...] 10:00 AM EST Immunization/Injectio n Hematology/Oncology Treatment, [place] [address] [place] [address] Nurse, Med [address] [place] [address] 05/24/2023 9:40 AM EST Laboratory Laboratory, [facility] 132 [facility] [place] [phone] [facility] 132 [facility] [place] [address] 05/24/2023 10:00 AM EST Office Visit Cardiology, [facility] 132 [facility] [place] [address] Ning Devlin CRNP 132 [facility] [place] [address] 06/14/2023 10:00 AM EST Immunization/Injectio n Hematology/Oncology Treatment, [place] [facility] [address] Nurse, Med 200 [facility] [place] [address] 07/05/2023 7:15 AM EST Cardiac Studies Cardiac Studies, [facility] [place] [address] 07/13/2023 11:00 AM EST Cardiac Studies Cardiology, [facility] [address] [facility] [place] [address] Flex Field [facility] 132 [facility] [place] [address] 07/18/2023 11:00 AM EST Office Visit Cardiology, [facility] [address] [facility] [place] [address] Rosa Tyler PA-C [address] [facility] [place] [address] 08/08/2023 11:15 AM EST Office Visit Hematology/Oncology [facility] 200 [facility] [place] [address] Rubin Rendon MD 200 [facility] [place] [address] 08/17/2023 9:30 AM EDT Office Visit Family Practice, [address], [place] [phone] Tania Mitchell DO [address] [place] [address], [place] [address] 10/23/2023 10:00 AM EDT Nurse Only Ancillary Department, [address] [place] [address] [place], Nurse Annual Wellness [address] [place] [address] Scheduled Procedures Name Priority Associated Diagnoses Date/Ti [...] Additional history exists CKD PHOS USE SMARTSET 03296 02/11/2024 09/0 01/2023, 10/17/2022, 04/12/2021, Additional history exists CKD HGB USE SMARTSET 18304 04/07/202404/07, 04/06/2023, 04/06/2023, Additional history exists DXA [...] this encounter Medical Devices Implanted Type Area Special Education Preschool Teacher Device Identifier Shelf Expiration Date Model / Serial / Lot Lens 21.0 Mx60 - [id number] Implanted:Qty: 1 on 03/23/2016 by Jax Theodore MD at OR [facility] [employer]OM[employer] : SURGICAL 10/02/2018 MX60-21.0 / [id number] / [id number] Lens 21.5 Mx60 - [id number] - [id number] Implanted:Qty: 1 on 04/20/2016 by Jax Theodore MD at OR [facility] Right: Eye [employer]OMB : SURGICAL 09/02/2018 MX60-21.5 / [id number] / [id number] Valve Marni 3 Ultra 23mm - [id number] Implanted:Qty: 1 on 04/06/2023 by Payam Amor MD at [facility] [employer] [id number] 01/31/2024 [id number] / / documented as of this encounter [...] and were consensually agreed upon. Care Teams Produce Department Manager Relationship Specialty Start Date End Date Tania Mitchell DO [address] [place] [address] PCP - General Family Medicine 07/10/18 documented as of this encounter
--- OUTSIDE RECORDS SUMMARY | 2023-06-11 13:22 | External Medical Summary | Summary of Care ---
Author Name Unknown Organization [facility] Address [address] [place] [address] Phone [phone] Care Team Providers Care Folder Stitcher Operator Name Role Phone Tania Mitchell DO Primary Care Provider Reason for Visit * Reason Comments eRx-Medication Refill Encounter Details Date Type Department Care Team (Late st Contact Info) Description 05/23/[address] [facility] [address] [place] [facility] [place] [address] Tania Mitchell DO [address] [place] [address] Hx of gastric ulcer Allergies Active Allergy Reactions Criticality Noted Date [...] MG Oral Tablet (Lopressor)Indicati ons:HTN, goal below 130/80,Tachy-rbyn syndrome (HCC) TAKE 1 TABLET BY MOUTH TWICE DAILY 180 Tablet 3 3 Active hydroCHLOROthiazide 25 MG Oral Tablet (Hydrodiuril) TAKE HALF TABLET BY MOUTH DAILY 45 Tablet 2 3 Active [employer] Verio In Vitro Strip (Glucose Blood) use [...] 1 3 Active Lisinopril 40 MG Oral TabletIndications:H TN, goal below 130/80 TAKE 1 TABLET BY MOUTH ONCE DAILY 90 Tablet 1 3 Active HYDROcodone-Acetami nophen 5-325 MG Oral TabletIndications:G eneralized OA,Osteoarthritis of multiple joints, unspecified osteoarthritis type Take 1 Tablet by mouth every 6 hours as needed for Pain, Mild. 30 Tablet 0 3 Active Omeprazole 40 MG Oral Capsule Delayed Release (PriLOSEC)Indicatio ns:Hx of gastric ulcer TAKE 1 CAPSULE BY MOUTH ONCE DAILY 1 hour before the first meal of the day 90 Capsule 3 3 Active Omeprazole 40 MG Oral Capsule Delayed Release (PriLOSEC)Indicatio ns:Hx of gastric ulcer TAKE 1 CAPSULE BY MOUTH ONCE DAILY 1 hour before the first meal of the day 90 Capsule 1 3 05/24/20 23 Discontinued documented as of this encounter (statuses as [...] mRNA, LNP-s, No Pre serve, 2-Dose Series ([employer]) 10/01/2021,05/05/2021,09/10/2020,08/03 Covid-19, Mrna, Lnp-s, Pf, B ivalent, [...] encounter Miscellaneous Notes * Telephone Encounter - Lucho Ryan RPh - 05/24/2023 8:10 AM EST Signed Prescriptions: Disp Refills Omeprazole 40 MG Oral Capsule Delayed Rele*90 Cap*3 Sig: TAKE 1 CAPSULE BY MOUTH ONCE DAILY 1 hour before the first meal of the dayAuthorizing Provider: TANIA MITCHELL User: LUCHO RYAN --------- documented in this encounter Plan of Treatment Upcoming Encounters Date Type Department Care Team (Late st Contact Info) Description 05/24/2023 9:40 AM EST Laboratory Laboratory, [facility] [address] [place] [phone] Weston Loza [address] [place] [address] 05/24/2023 10:00 AM EST Office Visit Cardiology, [facility] [address] [place] [address] Ning Devlin CRNP [address] [facility] [place] [address] 06/14/2023 10:00 AM EST Immunization/Injectio n Hematology/Oncology Treatment, [place] [address] [place] [address] Nurse, Med 4 [facility] [address] 07/05/2023 7:15 AM EST Cardiac Studies Cardiac Studies, [facility] [address] [facility], [place] [address] 07/13/2023 11:00 AM EST Cardiac Studies Cardiology, [facility] [address] [facility] [place] [address] [facility] [address] [facility] [place] [address] 07/18/2023 11:00 AM EST Office Visit Cardiology, [facility] [address] [facility] [place] [address] Rosa Tyler PA-C 132 [place] [address] 08/08/2023 11:15 AM EST Office Visit Hematology/Oncology [facility] [address] [facility] [place], [place] [address] Rubin Rendon MD [address] [facility] [place] [address] 08/17/2023 9:30 AM EDT Office Visit [facility], [place] [address] [address] [facility] [place] [phone] Tania Mitchell, [address] [place] [address] 10/23/2023 10:00 AM EDT Nurse Only Ancillary Department, [place] [address] [facility] [place] [phone] [place], Nurse [facility] [address] [place] [address] Scheduled Procedures Name Priority Associated Diagnoses Date/Ti me ESOPHAGOGASTRODUODENOSCOPY ( EGD), FLEXIBLE, TRANSORAL, ENDOSCOPIC ULTRASOUND Recall Duodenal nodule Health Maintenance Due Date Last Done Comments DTaP,Tdap,and Td Vaccines (1 - Tdap) 1954 Hepatitis B (1 of 3 - Risk 3-dose series) 1997 COVID-19 Vaccine ( - season) 2023 05/10/2022, 10/01/2021, 05/05/2021, Additional history exists Diabetic Eye Exam 10/04/2023 10/03/2022, 06/21/2019 Albumin/Creatinine Ratio 10/18/2023 10/17/2022, 04/05 Depression Screening 10/18/2023 10/17/2022 Diabetic Foot Exam 10/18/2023 10/17/2022, 0 10/07/2020, 08/12/2019, Additional history exists TSH 10/18/2023 10/17/2022, 10/03, 11/26/2020, Additional history exists HbA1c 10/19/2023 04/20/2023, 07/0 11/2022, 04/15/2022, Additional history exists CKD PHOS USE SMARTSET 77775 02/11/2024 09/0 01/2023, 10/17/2022, 04/12/2021, Additional history exists CKD HGB USE SMARTSET 81912 04/07/202404/07, 04/06/2023, 04/06/2023, Additional history exists DXA [...] this encounter Medical Devices Implanted Type Area Membership Sales Manager Device Identifier Shelf Expiration Date Model / Serial / Lot Lens 21.0 Mx60 - [id number] Implanted:Qty: 1 on 03/23/2016 by Jax Theodore MD at OR [facility] [employer] : SURGICAL 10/02/2018 MX60-21.0 / [id number] / [id number] Lens 21.5 Mx60 - [id number] - [id number] Implanted:Qty: 1 on 04/20/2016 by Jax Theodore MD at OR [facility] Right: Eye [employer] : SURGICAL 09/02/2018 MX60-21.5 / [id number] / [id number] Valve Marni 3 Ultra 23mm - [id number] Implanted:Qty: 1 on 04/06/2023 by Payam Amor MD at [facility] [employer] [id number] 01/31/2024 [id number] / / documented as of this encounter Visit Diagnoses Diagnosis Hx of gastric ulcer Personal history of other diseases of digestive system documented in this encounter Advance Directives Latest [...] and were consensually agreed upon. Care Teams Folder Stitcher Operator Relationship Specialty Start Date End Date Tania Mitchell DO [address] [place] [facility] [place] [address] PCP - General Family Medicine 07/10/18 documented as of this encounter
--- OUTSIDE RECORDS SUMMARY | 2023-06-11 13:22 | External Medical Summary ---
Author Name Unknown Address Unknown Organization [id number]:[facility] - [address] [place] [address] Laboratory Report Ordering Provider Test Date Status HANY RALPH 04/20/2023 11:48:58 Final Observation Date Value Abnormality Reference (Units ) Status MYCODE SPECIMEN-SST 04/20/2023 11:48:58 Freezing of extracted DNA, whole blood and/or serum. Final Performing Location [facility] - [address] [place] [address]
--- OUTSIDE RECORDS SUMMARY | 2023-06-11 13:22 | External Medical Summary ---
Author Name Unknown Address Unknown Organization [id number]:[facility] [place] [facility] - [address] [place] [address] Laboratory Report Ordering Provider Test Date Status BAKARI PINEDO 05/24/2023 09:40:21 Final Observation Date Value Abnormality Reference (Units ) Status BUN 05/24/2023 09:40:21 45 Above high normal 6-20 (mg/dL) Final Creatinine 05/24/2023 09:40:21 1.5 Above high normal 0.5-1.0 (mg/dL) Final Glomerular filtration rate/1.73 sq M.predicted [Volume Rate/Area] in Serum, Plasma or Blood by Creatinine-based formula (CKD-EPI) 05/24/2023 09:40:21 34 Below low normal >=60 (mL/min) Final eGFR is calculated based on the CKD-EPI 2020 equation SODIUM 05/24/2023 09:40:21 139 135-146 (m mol/L) Final Potassium 05/24/2023 09:40:21 4.6 3.5-5.1 (m mol/L) Final Cl 05/24/2023 09:40:21 103 98-107 (mm ol/L) Final CO2 05/24/2023 09:40:21 24 22-32 (mmo l/L) Final Anion gap 05/24/2023 09:40:21 12 7-15 (mmol /L) Final Glucose 05/24/2023 09:40:21 200 Above high normal 70 -120 (mg/dL) Final Calcium 05/24/2023 09:40:21 9.8 8.4-10.2 ( mg/dL) Final Performing Location [facility] [place] [facility] - [address] [place] [address]
--- OUTSIDE RECORDS SUMMARY | 2023-06-11 13:22 | External Medical Summary ---
Author Name Unknown Address Unknown Organization [id number]:[facility] - [address] [place] [address] Laboratory Report Ordering Provider Test Date Status BARTOLO PINEDOISO 05/24/2023 09:40:21 Final Observation Date Value Abnormality Reference (Units ) Status Iron 05/24/2023 09:40:21 54 33-151 (ug /dL) Final Iron-binding capacity 05/24/2023 09:40:21 363 250-425 (ug/dL) Final Transferrin Sat % 05/24/2023 09:40:21 15 15 -55 (%) Final Performing Location [facility] - [address] [place] [address]
--- OUTSIDE RECORDS SUMMARY | 2023-06-11 13:22 | External Medical Summary | Summary of Care ---
Author Name Unknown Organization [facility] Address [address] [place] [address] Phone [phone] Care Team Providers Care History Teacher Name Role Phone Chelsey Mitchell DO Primary Care Provider Reason for Visit * Reason Comments Follow Up Follow up appointtriston hooks after her Aorta valve replacement done in [facility] Encounter Details Date Type Department Care Team (Latest Contact Info) Description 04/20/2023 10:30 AM EST Office Visit [facility] [address] [place] [address] Chelsey Mitchell DO [address] [place] [address] Type 2 diabetes mellitus with stage 3b chronic kidney disease, without long-term current use of insulin (HCC)*; Skin infection; S/P TAVR (transcatheter aortic valve replacement); HTN, goal below 130/80; Primary pancreatic neuroendocrine tumor Allergies Active Allergy Reactions Criticality Noted Date Comments Bee Venom Abdominal pain,Edema face/lips/tongue High 02/17/2011 Sulfa Antibiotics Rash Medium 12/26/2007 documented as of this encounter (statuses as of 04/20/2023) Medications Medication Sig Dispensed Refills Start Date [...] the day 90 Capsule 1 11/30/2022 Active [employer] In Vitro Strip (Glucose Blood) use as [...] other medications 90 Tablet 1 04/12/2023 Active Cephalexin 500 MG Oral CapsuleIndications:S kin infection Take 1 Capsule by mouth in the morning and 1 Capsule before bedtime. Do all this for 3 days. 6 Capsule 0 04/20/2023 3 Active documented as of this encounter (statuses as of 04/20/2023) Active Problems Problem Noted Date Diagnosed Date [...] as of this encounter (statuses as of 04/20/2023) Resolved Problems Problem Noted Date Diagnosed Date [...] as of this encounter (statuses as of 04/20/2023) Immunizations Name Administration Dates Next Due COVID-19 mRNA, LNP-s, No Pre serve, 2-Dose Series ([employer]) 10/01/2021,05/05/2021,09/10/2020,08/03 Covid-19, Mrna, Lnp-s, Pf, B ivalent, [...] Sign Reading Time Taken Comments Blood Pressure 126/62 04/20/2023 11:18 AM EST Pulse 65 04/20/2023 11:18 AM EST Temperature 36.1 C (96.9 F) 04/20/2023 11:[address] Respiratory Rate 18 04/20/2023 11:18 AM EST Oxygen Saturation 98% 04/20/2023 11:18 AM EST Inhaled Oxygen Concentration - - Weight 83.9 kg (185 lb) 04/20/2023 11:18 AM EST Height - - Body Mass Index 33.84 04/06/2023 8:20 AM EDT documented in this [...] No 04/06/2023 documented as of this encounter Progress Notes * Chelsey Mitchell, DO - 04/20/2023 11:23 AM EST Subjective: Magdalena Payan is a 87 year old female. Chief Complaint Patient presents with Follow Up Follow up appointment after her Aorta valve replacement done in [facility] HPI: 87 year old female with below hx, presenting today for a hospital follow up. She underwent TAVR in [place] about 2 weeks ago. She has seen cardiology on 04/17 No concern issues. No chest pain and or shortness of breath. She is off the Tradjenta and now more UTIs, but her sugars are in the 140s. She was on metformin , and taken off due to declining renal function. 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 Iron deficiency anemia D50.9 Primary pancreatic neuroendocrine tumor D3A.8 Type 2 diabetes mellitus with stage 3b chronic kidney disease, without long-term current use of insulin (HCC) E11.22, N18.32 Hypertensive kidney disease with stage 3b chronic kidney disease I12.9, N18.32 Chronic kidney disease, stage 3b (HCC) N18.32 Cardiac pacemaker in situ Z95.0 Diabetic peripheral neuropathy (HCC) E11.42 Aortic valve stenosis, severe I35.0 Tachy-bryn syndrome (HCC) I49.5 S/P TAVR (transcatheter aortic valve replacement) Z95.2 Current Outpatient Medications Medication Sig Dispense Refill ASPIRIN 81 MG PO TABS one a day ONETOUCH ULTRASOFT LANCETS MISC Use one time a day in the morning. E11.9 1 Box Dosing Unit 11 Vitamin D (Cholecalciferol) 10 MCG (400 UNIT) [...] BY MOUTH TWICE DAILY 180 Tablet 3 hydroCHLOROthiazide 25 MG Oral Tablet (Hydrodiuril) TAKE HALF TABLET BY MOUTH DAILY 45 Tablet 2 Lisinopril 40 MG Oral Tablet TAKE 1 TABLET BY MOUTH ONCE DAILY 90 Tablet 1 Omeprazole 40 MG Oral Capsule Delayed Release (PriLOSEC) TAKE 1 CAPSULE BY MOUTH ONCE DAILY 1 hour before the first meal of the day 90 Capsule 1 [employer] Verio In Vitro Strip (Glucose Blood) use as directed to test blood sugar once a day 100 Strip 2 HYDROcodone-Acetaminophen 5-325 MG Oral Tablet Take 1 Tablet by mouth every 6 hours as needed for Pain, Mild. 30 Tablet 0 Atorvastatin Calcium 20 MG Oral Tablet (Lipitor) TAKE 1 TABLET BY MOUTH ONCE DAILY 90 Tablet 1 Levothyroxine Sodium 100 MCG Oral Tablet (Levoxyl) take 1 tablet by mouth once daily at least 30 minutes before breakfast or any other medications 90 Tablet 1 No current facility-administered medications for this visit. Review of patient's allergies indicates: Allergen Reactions Bee Venom Abdominal pain and Edema face/lips/tongue Sulfa Antibiotics Rash Objective: BP 126/62 | Pulse 65 | Temp 36.1 C (96.9 F) (Infrared ) | Resp 18 | Wt 83.9 kg (185 lb) | SpO2 98% | BMI 33.84 kg/m | BSA 1.92 m Physical Exam: General: alert, healthy, and no distress Heart: regular rate & rhythm, no murmur, and no gallops Lungs: chest symmetric with normal AP diameter, no chest deformities noted, no chest wall tenderness, lungs clear to auscultation Abdomen: abdomen soft, non-tender, normal bowel sounds, and no masses or organomegaly Skin: R groin, area where the cath was completed there was some mild redness, no drainage, and I was able to take a culture as there was no drainage, but area appeared slightly red. ASSESSMENT/PLAN: Type 2 diabetes mellitus with stage 3b chronic kidney disease, without long-term current use of insulin (HCC) (Primary) - HEMOGLOBIN A1C; Future; Expected date: 04/20/2023 - BASIC METABOLIC PANEL; Future; Expected date: 04/20/2023 Will check her diabetes, and if closer to 8 to consider Jardiance. Skin infection - Cephalexin 500 MG Oral Capsule; Take 1 Capsule by mouth in the morning and 1 Capsule before bedtime. Do all this for 3 days. There was some slight redness at her cath site, will cover with 3 days of an antibiotic. S/P TAVR (transcatheter aortic valve replacement) -doing well. HTN, goal below 130/80 --bp controlled. Primary pancreatic neuroendocrine tumor --stable for now Got Sandostatin yesterday. Keep August appt Follow Up: Return for Labs Today. | For: Labs Today Chelsey Mitchell DO documented in this encounter Nursing Notes * Yanira Rivero LPN - 04/20/2023 11:17 AM EST Chief Complaint Patient presents with Follow Up Follow up appointment after her Aorta valve replacement done in [facility] documented in this encounter Plan of Treatment Upcoming Encounters Date Type Department Care Team (Late st Contact Info) Description 05/17/2023 10:00 AM EST Immunization/Injectio n Hematology/Oncology Treatment, [place] [address] [facility], [place] [address] Nurse, Med 4 [address] [facility] [place] [address] 05/24/2023 9:40 AM EST Laboratory Laboratory, [facility] [address] [facility] [place] [address] [facility] [address] [place], [place] [address] 05/24/2023 10:00 AM EST Office Visit Cardiology, [facility] [address] [place] [address] Ning Devlin CRNP [address] [place] [address] 05/30/2023 3:30 PM EST Cardiac Studies Cardiac Studies, [facility] [address] [place] [address] 06/14/2023 10:00 AM EST Immunization/Injectio n Hematology/Oncology Treatment, [place] [address] [facility], [place] [address] Nurse, Med 4 [address] [facility] [place] [address] 07/13/2023 11:00 AM EST Cardiac Studies Cardiology, [facility] [address] [place] [address] [place], Pacer Clinic [facility] [address] [place] [address] 07/18/2023 11:00 AM EST Office Visit Cardiology, [facility] [address] [place] [address] Rosa Tyler PA-C [address] [place] [address] 08/08/2023 11:15 AM EST Office Visit Hematology/Oncology [facility] [place] [address] [facility] [place] [address] Rubin Rendon MD [address] [facility] [place], [place] [address] 08/17/2023 9:30 AM EDT Office Visit [facility] [place] [address] [place] [phone] Chelsey Mitchell DO [address] [place] [address] 10/23/2023 10:00 AM EDT Nurse Only Ancillary Department, [place] [address] [place] [address] [place], Nurse [facility] [address] [place] [address] Pending Results Name Type Priority Associated Diagnoses Date /Time HEMOGLOBIN A1C Lab Routine Type 2 diabetes mellitus with stage 3b chronic kidney disease, without long-term current use of insulin (HCC) 04/20/2023 11:48 AM EST BASIC METABOLIC PANEL Lab Routine Type 2 diabetes mellitus with stage 3b chronic kidney disease, without long-term current use of insulin (HCC) 04/20/2023 11:48 AM EST Scheduled Orders Name Type Priority Associated Diagnoses Orde r Schedule HEMOGLOBIN A1C Lab Routine Type 2 diabetes mellitus with stage 3b chronic kidney disease, without long-term current use of insulin (HCC) Expected: 04/20/2023 (Approximate), Expires: 04/19/2024 BASIC METABOLIC PANEL Lab Routine Type 2 diabetes mellitus with stage 3b chronic kidney disease, without long-term current use of insulin (HCC) Expected: 04/20/2023 (Approximate), Expires: 04/19/2024 Scheduled Procedures Name Priority Associated Diagnoses Date/Ti [...] Additional history exists CKD PHOS USE SMARTSET 94187 02/11/2024 09/0 01/2023, 10/17/2022, 04/12/2021, Additional history exists CKD HGB USE SMARTSET 95574 04/07/202404/07, 04/06/2023, 04/06/2023, Additional history exists DXA [...] this encounter Medical Devices Implanted Type Area Neonatal Intensive Care Nurse Device Identifier Shelf Expiration Date Model / Serial / Lot Lens 21.0 Mx60 - [id number] Implanted:Qty: 1 on 03/23/2016 by Jax Theodore MD at OR [facility] [employer] : SURGICAL 10/02/2018 MX60-21.0 / [id number] / [id number] Lens 21.5 Mx60 - [id number] - [id number] Implanted:Qty: 1 on 04/20/2016 by Jax Theodore MD at OR [facility] Right: Eye [employer] : SURGICAL 09/02/2018 MX60-21.5 / [id number] / [id number] Valve Marni 3 Ultra 23mm - [id number] Implanted:Qty: 1 on 04/06/2023 by Payam Amor MD at [facility] [employer] [id number] 01/31/2024 [id number] / / documented as of this encounter Visit Diagnoses Diagnosis Type 2 diabetes mellitus with stage 3b chronic kidney disease, without long-term current use of insulin (HCC)- Primary Skin infection Unspecified local infection of skin and subcutaneous tissue S/P TAVR (transcatheter aortic valve replacement) Heart valve replaced by other means HTN, goal below 130/80 Unspecified essential hypertension 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 Care Teams History Teacher Relationship Specialty Start Date End Date Chelsey Mitchell DO [address] [place] [address] PCP - General Family Medicine 07/10/18 documented as of this encounter"
--- OUTSIDE RECORDS SUMMARY | 2023-06-11 13:22 | External Medical Summary | Summary of Care ---
Author Name Unknown Organization [facility] Address [address] [place] [address] Phone [phone] Care Team Providers Care Plasma Specialist Name Role Phone Chelsey Mitchell DO Primary Care Provider [phone] Reason for Referral * Precert (Within 10 days (routine)) - Pending Review Specialty Diagnoses / Procedures Referred By Contac t Referred To Contact Cardiac Studies Diagnoses S/P TAVR (transcatheter aortic valve replacement) Aortic valve stenosis, severe Procedures ECHO, COMPLETE (2D), TRANS-THORACIC Ning Devlin CRNP [address] [place] [address] Referral ID Status Reason Start Date Expiration Date Visits Requested Visits Authorized [id number] Pending Review Precert 05/25/2023 999 999 Reason for Visit * Reason Onset Date Comments Cardiology Study 05/25/2023 Encounter Details Date Type Department Care Team (Late st Contact Info) Description 05/25/2023 Telephone Cardiac Studies, [facility] [address] [place] [address] Ning Devlin CRNP [address] [place] [address] Cardiology Study (/) Allergies Active Allergy Reactions Criticality Noted Date [...] mRNA, LNP-s, No Pre serve, 2-Dose Series (Kazaana) 10/01/2021,05/05/2021,09/10/2020,08/03 Covid-19, Mrna, Lnp-s, Pf, B ivalent, 30 Mcg, IM, 12 yrs and above (Kazaana) 05/10/2022 Pneumococcal Conjugate Vacc, 13 Valent (Prevnar) [...] 10:00 AM EST Immunization/Injec tion Hematology/Oncology Treatment, [place] [address] [place] [address] Nurse, Med 200 [facility] [place] [address] 07/05/2023 7:15 AM EST Cardiac Studies Cardiac Studies, [facility] [address] [place] [address] 07/13/2023 11:00 AM EST Cardiac Studies Cardiology, [facility] [place] [address] [facility] [address] [place] [address] 07/18/2023 11:00 AM EST Office Visit Cardiology, [facility] [address] [place] [address] Rosa Tyler PA-C [address] [place] [address] 08/08/2023 11:15 AM EST Office Visit Hematology/Oncology [facility] [address] [facility] [address] Rubin Rendon MD 200 [facility] [place] [address] 08/17/2023 9:30 AM EDT Office Visit Family Practice, [place] [address] [facility], [place] [id number] Chelsey Mitchell DO [address] [place] [address] 10/23/2023 10:00 AM EDT Nurse Only Ancillary Department, [place] [address] [facility], [place] [id number] [place], Nurse Annual [facility] [address] [place] [address] 05/09/2024 9:30 AM EST Cardiac Studies Cardiac Studies, [facility] [address] [place] [address] Pending Results Name Type Priority Associated Diagnoses Date /Time ECHO, COMPLETE (2D), TRANS-THORACIC Echocardiology Routine S/P TAVR (transcatheter aortic valve replacement) Aortic valve stenosis, severe 05/25/2023 10:37 AM EST Scheduled Orders Name Type Priority Associated Diagnoses Orde r Schedule ECHO, COMPLETE (2D), TRANS-THORACIC Echocardiology Routine S/P TAVR (transcatheter aortic valve replacement) Aortic valve stenosis, severe Expected: 05/25/2023, Expires: 11/23/2024 Scheduled Procedures Name Priority Associated Diagnoses Date/Ti me ESOPHAGOGASTRODUODENOSCOPY ( EGD), FLEXIBLE, TRANSORAL, ENDOSCOPIC ULTRASOUND Recall Duodenal nodule Health Maintenance Due Date Last Done Comments DTaP,Tdap,and Td Vaccines (1 - Tdap) 1954 Hepatitis B (1 of 3 - Risk 3-dose series) 1997 COVID-19 Vaccine ( - 2022-24 season) 2023 05/10/2022, 10/01/2021, 05/05/2021, Additional history exists Diabetic Eye Exam 10/04/2023 10/03/2022, 06/21/2019 Albumin/Creatinine Ratio 10/18/2023 10/17/2022, 04/05 Depression Screening 10/18/2023 10/17/2022 Diabetic Foot Exam 10/18/2023 10/17/2022, 0 10/07/2020, 08/12/2019, Additional history exists TSH 10/18/2023 10/17/2022, 10/03, 11/26/2020, Additional history exists HbA1c 10/19/2023 04/20/2023, 07/11/2022, 04/15/2022, Additional history exists CKD PHOS USE SMARTSET 34367 02/11/2024 09/0 01/2023, 10/17/2022, 04/12/2021, Additional history exists CKD HGB USE SMARTSET 94518 05/24/202405/24, 04/07/2023, 04/06/2023, Additional history exists DXA [...] this encounter Medical Devices Implanted Type Area Lithographic Stripper Device Identifier Shelf Expiration Date Model / Serial / Lot Lens 21.0 Mx60 - [id number] Implanted:Qty: 1 on 03/23/2016 by Jax Theodore MD at OR [facility] [employer] : SURGICAL 10/02/2018 MX60-21.0 / [id number] / [id number] Lens 21.5 Mx60 - [id number] - [id number] Implanted:Qty: 1 on 04/20/2016 by Jax Theodore MD at OR [facility] Right: Eye [employer]OM[employer] : SURGICAL 09/02/2018 MX60-21.5 / [id number] / [id number] Valve Marni 3 Ultra 23mm - [id number] Implanted:Qty: 1 on 04/06/2023 by Payam Amor MD at [facility] [employer] [id number] 01/31/2024 [id number] / / documented as of this encounter Visit Diagnoses Diagnosis S/P TAVR (transcatheter aortic valve replacement)- Primary Heart valve replaced by other means Aortic valve stenosis, severe Aortic valve disorders documented in this encounter [...] and were consensually agreed upon. Care Teams Plasma Specialist Relationship Specialty Start Date End Date Chelsey Mitchell DO [address] [facility] [place] [address] PCP - General Family Medicine 07/10/18 documented as of this encounter
--- OUTSIDE RECORDS SUMMARY | 2023-06-11 13:22 | External Medical Summary | Summary of Care ---
Author Name Unknown Organization [facility] Address [address] [place] [address] Phone [phone] Care Team Providers Care Sewing Inspector Name Role Phone Chelsey Mitchell DO Primary Care Provider [phone] Reason for Visit * Reason Comments Outpatient Testing Encounter Details Date Type Department Care Team (Late st Contact Info) Description 04/20/2023 11:50 AM EST Laboratory Laboratory, [place] [address] [place] [address] [facility] Laboratory [address] [place] [address] [employer] Other*[id number]; Type 2 diabetes mellitus with stage 3b chronic kidney disease, without long-term current use of insulin (HCC) Allergies Active Allergy Reactions Criticality Noted Date [...] the day 90 Capsule 1 11/30/2022 Active [employer] Verio In Vitro Strip (Glucose Blood) use [...] mRNA, LNP-s, No Pre serve, 2-Dose Series ([employer]) 10/01/2021,05/05/2021,09/10/2020,08/03 Covid-19, Mrna, Lnp-s, Pf, B ivalent, 30 Mcg, IM, 12 yrs and above ([employer]) 05/10/2022 Pneumococcal Conjugate Vacc, 13 Valent (Prevnar) [...] 10:00 AM EST Immunization/Injectio n Hematology/Oncology Treatment, [place] [facility] [address] Nurse, Med 4 [address] [place] [address] 05/24/2023 9:40 AM EST Laboratory Laboratory, [facility] [address] [facility] [place] [id number] [facility] [address] [facility] [place] [address] 05/24/2023 10:00 AM EST Office Visit Cardiology, [facility] [address] [facility] [place] [address] Ning Devlin CRNP 132 [facility] [place] [address] 05/30/2023 3:30 PM EST Cardiac Studies Cardiac Studies, [facility] [address] [facility] [place] [address] 06/14/2023 10:00 AM EST Immunization/Injectio n Hematology/Oncology Treatment, [place] [address] [facility] [address] Nurse, Med 4 [address] [place] [address] 07/13/2023 11:00 AM EST Cardiac Studies Cardiology, [facility] [address] [facility] [place] [address] [facility] [address] [place] [address] 07/18/2023 11:00 AM EST Office Visit Cardiology, [facility] [address] [place] [address] Rosa Tyler, RYAN [address] [place] [address] 08/08/2023 11:15 AM EST Office Visit Hematology/Oncology [facility] [address] [facility] [place], [place] [address] Rubin Rendon MD [address] [facility] [place] [address] 08/17/2023 9:30 AM EDT Office Visit Family [facility], [place] [address] [place] [address] Chelsey Mitchell, [address] [place] [address] 10/23/2023 10:00 AM EDT Nurse Only Ancillary Department, [address] [address] [place], Nurse Annual Wellness [address] [place] [address] Pending Results Name Type Priority Associated Diagnoses Date /Time MYCODE SUBSEQUENT ADULT Lab Routine [employer] Other*[id number] 04/20/2023 11:48 AM EST HEMOGLOBIN A1C Lab Routine Type 2 diabetes mellitus with stage 3b chronic kidney disease, without long-term current use of insulin ([facility]) 04/20/2023 11:48 AM EST BASIC METABOLIC PANEL Lab Routine Type 2 diabetes mellitus with stage 3b chronic kidney disease, without long-term current use of insulin ([facility]) 04/20/2023 11:48 AM EST MYCODE SST1 Lab Routine [employer] Other*[id number] 04/20/2023 11:48 AM EST MYCODE SST2 Lab Routine [employer] Other*[id number] 04/20/2023 11:48 AM EST Scheduled Procedures Name Priority Associated [...] Additional history exists CKD PHOS USE SMARTSET 02470 02/11/2024 09/0 01/2023, 10/17/2022, 04/12/2021, Additional history exists CKD HGB USE SMARTSET 41128 04/07/202404/07, 04/06/2023, 04/06/2023, Additional history exists DXA [...] this encounter Medical Devices Implanted Type Area Aviation Safety Officer Device Identifier Shelf Expiration Date Model / Serial / Lot Lens 21.0 Mx60 - [id number] Implanted:Qty: 1 on 03/23/2016 by Jax Theodore MD at OR [facility] [employer] : SURGICAL 10/02/2018 MX60-21.0 / [id number] / [id number] Lens 21.5 Mx60 - [id number] - [id number] Implanted:Qty: 1 on 04/20/2016 by Jax Theodore MD at OR [facility] Right: Eye [employer] : SURGICAL 09/02/2018 MX60-21.5 / [id number] / [id number] Valve Marni 3 Ultra 23mm - [id number] Implanted:Qty: 1 on 04/06/2023 by Payam Amor MD at [facility] [place] [employer] [id number] 01/31/2024 [id number] / / documented as of this encounter Visit Diagnoses Diagnosis [employer] Other*[id number] Type 2 diabetes mellitus with stage 3b chronic kidney disease, without long-term current use of insulin (HCC) documented in this encounter Advance Directives Latest [...] and were consensually agreed upon. Care Teams Sewing Inspector Relationship Specialty Start Date End Date Chelsey Mitchell DO [address] [place] [phone] PCP - General Family Medicine 07/10/18 documented as of this encounter
--- OUTSIDE RECORDS SUMMARY | 2023-06-11 13:22 | External Medical Summary ---
Author Name Unknown Address Unknown Organization K01:LABORATORY [facility] [place] - [address] [place] [address] Laboratory Report Ordering Provider Test Date Status BAKARI PINEDO 05/24/2023 09:40:21 Final Observation Date Value Abnormality Reference (Units ) Status Magnesium 05/24/2023 09:40:21 2.0 1.5-2.6 (m g/dL) Final Performing Location LABORATORY [facility] - [address] [place] [address]
--- OUTSIDE RECORDS SUMMARY | 2023-06-11 13:22 | External Medical Summary | Summary of Care ---
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 Procedures DE OCTREOTIDE INJECTION, DEPOT Rubin Rendon MD [address] [facility] [place] [address] Anc Hem/Onc Geetha Weinstein DEPT CLOSED - 04/18/[address] [place] [address] [phone] Referral ID Status Reason Start Date Expiration Date V isits Requested Visits Authorized [id number] Authorized 03/20/2023 03/20/2024 99 13 Encounter Details Date Type Department Care Team (Latest Contact Info) Description 05/17/2023 10:00 AM EST Immunization/ Injection Hematology/Oncology Treatment, [place] [address] [place] [address] Nurse, Med [address] [place] [address] [phone] Primary malignant neuroendocrine neoplasm of duodenum (HCC)*; Primary pancreatic neuroendocrine tumor Allergies Active Allergy Reactions Criticality Noted Date Comments Bee Venom Abdominal pain,Edema face/lips/tongue High 02/17/2011 Sulfa Antibiotics Rash Medium 12/26/2007 documented as of this encounter (statuses as of 05/17/2023) Medications Medication Sig Dispensed Refills Start Date [...] MOUTH DAILY 45 Tablet 2 09/20/2022 Active Omeprazole 40 MG Oral Capsule Delayed [...] Pain, Mild. 30 Tablet 0 05/10/2023 Active documented as of this encounter (statuses as of 05/17/2023) Active Problems Problem Noted Date Diagnosed Date [...] as of this encounter (statuses as of 05/17/2023) Resolved Problems Problem Noted Date Diagnosed Date [...] as of this encounter (statuses as of 05/17/2023) Immunizations Name Administration Dates Next Due COVID-19 mRNA, LNP-s, No Pre serve, 2-Dose Series (FreakOut) 10/01/2021,05/05/2021,09/10/2020,08/03 Covid-19, Mrna, Lnp-s, Pf, B ivalent, 30 Mcg, IM, 12 yrs and above (FreakOut) 05/10/2022 Pneumococcal Conjugate Vacc, 13 Valent (Prevnar) [...] Nursing Notes * Kate Sweet LPN - 05/17/2023 10:35 AM EST Pt arrived for Sandostatin injection. Administered in L dorsogluteal. Pt tolerated well. To return in 4 weeks. Discharged in stable condition. documented in this encounter Plan of Treatment Upcoming Encounters Date Type Department Care Team (Late st Contact Info) Description 05/24/2023 9:40 AM EST Laboratory Laboratory, [facility] 132 [facility] [place] [address] [facility] [place] [address] 05/24/2023 10:00 AM EST Office Visit Cardiology, [facility] 132 [facility] [place] [address] Ning Devlin CRNP 132 [facility] [place] [address] 06/14/2023 10:00 AM EST Immunization/Injectio n Hematology/Oncology Treatment, [place] [address] [place] [address] Nurse, Med 4 [address] [facility] [address] 07/05/2023 7:15 AM EST Cardiac Studies Cardiac Studies, [facility] 132 [facility], [place] [address] 07/13/2023 11:00 AM EST Cardiac Studies Cardiology, [facility] [address] [facility], [place] [address] [facility] 132 [facility], [place] [address] 07/18/2023 11:00 AM EST Office Visit Cardiology, [facility] [address] [facility], [place] [address] Rosa Tyler PA-C 132 [facility] [address] 08/08/2023 11:15 AM EST Office Visit Hematology/Oncology [facility] 200 [facility] [place], [place] [address] Rubin Rendon MD 200 [place] [address] 08/17/2023 9:30 AM EDT Office Visit Family [facility], [place] [address] [place] [phone] Chelsey Mitchell DO [address] [place] [address] 10/23/2023 10:00 AM EDT Nurse Only Ancillary Department, [place] [address] [address] [facility] [id number] [place], Nurse Annual Wellness [address] [place] [address] Scheduled Procedures Name Priority Associated Diagnoses Date/Ti [...] Additional history exists CKD PHOS USE SMARTSET 43758 02/11/2024 09/0 01/2023, 10/17/2022, 04/12/2021, Additional history exists CKD HGB USE SMARTSET 68555 04/07/202404/07, 04/06/2023, 04/06/2023, Additional history exists DXA [...] this encounter Medical Devices Implanted Type Area Climate Change Risk Assessor Device Identifier Shelf Expiration Date Model / Serial / Lot Lens 21.0 Mx60 - [id number] Implanted:Qty: 1 on 03/23/2016 by Jax Theodore MD at OR [facility] [employer] : SURGICAL 10/02/2018 MX60-21.0 / [id number] / [id number] Lens 21.5 Mx60 - [id number] - [id number] Implanted:Qty: 1 on 04/20/2016 by Jax Theodore MD at OR [facility] Right: Eye [employer] : SURGICAL 09/02/2018 MX60-21.5 / [id number] / [id number] Valve Marni 3 Ultra 23mm - [id number] Implanted:Qty: 1 on 04/06/2023 by Payam Amor MD at [facility] [place] [employer] [id number] 01/31/2024 [id number] / / documented as of this encounter [...] 20 mg 20 mg, Intramuscular, ONCE, On Mon05/17/23 at 1115, For 1 dose Given 05/17/2023 10:08 AM EST 20 mg Dorsogluteal Left documented [...] and were consensually agreed upon. Care Teams License Distributor Relationship Specialty Start Date End Date Chelsey Mitchell DO [address] [place] [address] PCP - General Family Medicine 07/10/18 documented as of this encounter
--- OUTSIDE RECORDS SUMMARY | 2023-06-11 13:22 | External Medical Summary ---
Author Name Unknown Address Unknown Organization K0G:LABORATORY [facility] [place] 57-10 - [address] [place] [address] Laboratory Report Ordering Provider Test Date Status BAKARI PINEDO 05/24/2023 09:40:21 Final Observation Date Value Abnormality Reference (Units ) Status WBC, Total 05/24/2023 09:40:21 9.68 4.00-10.8 0 (K/uL) Final RBC 05/24/2023 09:40:21 4.02 3.85-5.15 (M/uL) Final Hemoglobin 05/24/2023 09:40:21 11.5 Below low normal 12 .0-15.3 (g/dL) Final HCT 05/24/2023 09:40:21 37.1 36.0-45.2 (%) Final MCV 05/24/2023 09:40:21 92.3 81.5-97.5 (fL) Final MCH 05/24/2023 09:40:21 28.6 27.0-34.0 (pg) Final MCHC 05/24/2023 09:40:21 31.0 32.0-36.0 (g/dL) Final RDW 05/24/2023 09:40:21 14.1 11.5-15.5 (%) Final Platelets 05/24/2023 09:40:21 135 Below low normal 140 -400 (K/uL) Final MPV 05/24/2023 09:40:21 10.8 6.6-11.1 ( fL) Final Performing Location LABORATORY [facility] [place] 57-[address] 0 - [address] [place] [address]
--- OUTSIDE RECORDS SUMMARY | 2023-06-11 13:22 | External Medical Summary ---
Author Name Unknown Address Unknown Organization K01:LABORATORY [facility] [place] [address] [facility] [address] [place] [address] Laboratory Report Ordering Provider Test Date Status BAKARI PINEDO 05/24/2023 09:40:21 Final Observation Date Value Abnormality Reference (Units ) Status Ferritin 05/24/2023 09:40:21 29 13-150 (ng /mL) Final Postmenopausal women have hi gher ferritin levels than pre-menopausal women. The above reference interval is based on pre-menopausal women. Performing Location LABORATORY C - [address] [place] [address]
--- OUTSIDE RECORDS SUMMARY | 2023-06-11 13:23 | External Medical Summary ---
Author Name Unknown Address Unknown Organization K01:[facility]ATORY [facility] [place] [address] [place] [address] Laboratory Report Ordering Provider Test Date Status AKBAR BAKER 04/07/2023 05:35:00 Final Observation Date Value Abnormality Reference (Units ) Status Magnesium 04/07/2023 05:35:00 2.1 1.5-2.6 (m g/dL) Final Performing Location LABORATORY [facility] - [address] [place] [address]
--- OUTSIDE RECORDS SUMMARY | 2023-06-11 13:23 | External Medical Summary ---
Author Name Unknown Address Unknown Organization K01:LABORATORY [facility] [place] - [facility] [address] [place] [address] Laboratory Report Ordering Provider Test Date Status AKBAR BAKER 04/07/2023 05:35:00 Final Observation Date Value Abnormality Reference (Units ) Status WBC, Total 04/07/2023 05:35:00 7.29 4.00-10.80 (K/uL) Final RBC 04/07/2023 05:35:00 3.80 3.85-5.15 (M/uL) Final Hemoglobin 04/07/2023 05:35:00 11.1 Below low normal 12.0-15.3 (g/dL) Final HCT 04/07/2023 05:35:00 35.6 Below low normal 36.0-45.2 (%) Final MCV 04/07/2023 05:35:00 93.7 81.5-97.5 (fL) Final MCH 04/07/2023 05:35:00 29.2 27.0-34.0 (pg) Final MCHC 04/07/2023 05:35:00 31.2 32.0-36.0 (g/dL) Final RDW 04/07/2023 05:35:00 14.9 11.5-15.5 (%) Final Platelets 04/07/2023 05:35:00 116 Below low normal 140-400 (K/uL) Final MPV 04/07/2023 05:35:00 10.5 6.6-11.1 (fL) Final Nucleated erythrocytes/100 leukocytes [Ratio] in Blood by Automated count 04/07/2023 05:35:00 0 <=0 (/100 WBCs) Final Performing Location LABORATORY [facility] [place] - [address] [place] [address]
--- OUTSIDE RECORDS SUMMARY | 2023-06-11 13:23 | External Medical Summary ---
Author Name Unknown Address Unknown Organization K01:LABORATORY [facility] [place] - [facility] [address] [place] [address] Laboratory Report Ordering Provider Test Date Status ENRIQUE LAND 04/06/2023 08:30:50 Final Exclude Heart Failure: <300 pg/mL
Diagnose Heart Failure:
Age <50 yr: >450 pg/mL
50-75 yr: >900 pg/mL
>75 yr: >1800 pg/mL
GFR is 30-59 mL/min: >1200 pg/mL or Age- adjusted values
GFR <30 mL/min: do not use, not reliable

Prognostic threshold: 1000 pg/mL Observation Date Value Abnormality Reference (Units ) Status BNP, Pro-hormone 04/06/2023 08:30:50 549 Above high no rmal <300 (pg/mL) Final Performing Location LABORATORY [facility] [place] - [facility] [address] [place] [address]
--- OUTSIDE RECORDS SUMMARY | 2023-06-11 13:23 | External Medical Summary | Summary of Care ---
Author Name Unknown Organization [facility] Address [address] [place] [address] Phone [phone] Care Team Providers Care Physician Allergist Immunologist Name Role Phone Chelsey Mitchell DO Primary Care Provider [phone] Reason for Visit * Auth/Cert Specialty Diagnoses / Procedures Referred By Josef t Referred To Contact Diagnoses Aortic stenosis Aortic stenosis [I35.0] Procedures REPLACE AORTIC VALVE, PERCUTANEOUS FEMORAL REPLACE AORTIC VALVE, PERCUTANEOUS FEMORAL REPLACE AORTIC VALVE, PERCUTANEOUS FEMORAL REPLACE AORTIC VALVE, PERCUTANEOUS FEMORAL Referral ID Status Reason Start Date Expiration Date Visits Re quested Visits Authorized [id number] Encounter Details Date Type Department Care Team (Latest Contact Info) Description 04/07/2023 6:12 AM EDT - 04/07/2023 11:59 PM EDT Hospital Encounter Cardiac Studies [place] [address] [place] [address] Discharge Disposition: Home - Self Care Allergies Active Allergy Reactions Criticality Noted Date Comments Bee Venom Abdominal pain,Edema face/lips/tongue High 02/17/2011 Sulfa Antibiotics Rash Medium 12/26/2007 documented as of this encounter (statuses as of 04/08/2023) Medications Medication Sig Dispensed Refills Start Date [...] TWICE DAILY 180 Tablet 3 09/02/2022 Active Tradjenta 5 MG Oral Tablet (linaGLIPtin)Indicat ions:Type 2 diabetes mellitus with stage 3b chronic kidney disease, with long-term current use of insulin (HCC) TAKE 1 TABLET BY MOUTH ONCE DAILY 90 Tablet 2 09/20/2022 Active hydroCHLOROthiazide 25 MG Oral Tablet (Hydrodiuril) TAKE HALF TABLET BY MOUTH DAILY 45 Tablet 2 09/20/2022 Active Levothyroxine Sodium 100 MCG Oral Tablet (Levoxyl)Indications :Hypothyroidism take one tablet by mouth daily at least 30 minutes before breakfast and other medications 90 Tablet 1 10/17/2022 Active Lisinopril 40 MG Oral TabletIndications:HT N, [...] ONCE DAILY 90 Tablet 1 04/03/2023 Active documented as of this encounter (statuses as of 04/08/2023) Active Problems Problem Noted Date Diagnosed Date [...] as of this encounter (statuses as of 04/08/2023) Resolved Problems Problem Noted Date Diagnosed Date [...] as of this encounter (statuses as of 04/08/2023) Immunizations Name Administration Dates Next Due COVID-19 mRNA, LNP-s, No Pre serve, 2-Dose Series (Lozo) 10/01/2021,05/05/2021,09/10/2020,08/03 Covid-19, Mrna, Lnp-s, Pf, B ivalent, 30 Mcg, IM, 12 yrs and above (Lozo) 05/10/2022 Pneumococcal Conjugate Vacc, 13 Valent (Prevnar) [...] or making decisions? (5 years old or older No 04/06/2023 documented as of this encounter Plan of Treatment Upcoming Encounters Date Type Department Care Team (Late st Contact Info) Description 04/17/2023 2:00 PM EST Office Visit Cardiology, [facility] [address] [place] [address] Ning Devlin CRNP [address] [place] [address] 04/19/2023 10:00 AM EST Immunization/Injectio n Hematology/Oncology Treatment, [facility] [address] [place] [address] Nurse, Med [address] [place] [address] 04/20/2023 10:30 AM EST Office Visit [facility] [address] [place] [phone] Chelsey Mitchell, [address] [place] [address] 05/24/2023 9:40 AM EST Laboratory Laboratory, [facility] [place] [phone] [facility]za[facility]on rest[facility] [place] [address] 05/24/2023 10:00 AM EST Office Visit Cardiology, [facility] [address] [place] [address] Ning Devlin CRNP [address] [place] [address] 05/30/2023 3:30 PM EST Cardiac Studies [facility], [facility] [place] [address] 07/13/2023 11:00 AM EST Cardiac Studies Cardiology, [facility] [address] [facility] [place] [address] [facility] [address] [facility] [place] [address] 07/18/2023 11:00 AM EST Office Visit Cardiology, [facility] [address] [facility] [place], [place] [address] Rosa Tyler PA-C [address] [facility] [place] [address] 08/08/2023 11:15 AM EST Office Visit Hematology/Oncology [facility] [address] [facility] [place] [address] Rubin Rendon MD [address] [facility] [address] 08/17/2023 9:30 AM EDT Office Visit Family [facility], [place] [address] [place] [facility] [place] [phone] Chelsey Mitchell, [address] [facility] [place] [address] 10/23/2023 10:00 AM EDT Nurse Only Ancillary Department, [place] [address] [facility] [id number] [place], Nurse [facility] [address] [facility] [address] Scheduled Procedures Name Priority Associated Diagnoses Date/Ti me ESOPHAGOGASTRODUODENOSCOPY ( EGD), FLEXIBLE, TRANSORAL, ENDOSCOPIC ULTRASOUND Recall Duodenal nodule Health Maintenance Due Date Last Done Comments DTaP,Tdap,and Td Vaccines (1 - Tdap) 1954 Hepatitis B (1 of 3 - Risk 3-dose series) 1997 COVID-19 Vaccine (6 - 2022- season) 2023 05/10/2022, 10/01/2021, 05/05/2021, Additional history exists HbA1c 06/10/2023 12/08/2022, 04/05, 10/13/2021, Additional history exists Diabetic Eye Exam 10/04/2023 10/03/2022, 06/21/2019 Albumin/Creatinine Ratio 10/18/2023 10/17/2022, 04/05 Depression Screening 10/18/2023 10/17/2022 Diabetic Foot Exam 10/18/2023 10/17/2022, 0 10/07/2020, 08/12/2019, Additional history exists TSH 10/18/2023 10/17/2022, 10/03, 11/26/2020, Additional history exists CKD PHOS USE SMARTSET 67024 02/11/2024 09/0 01/2023, 10/17/2022, 04/12/2021, Additional history exists CKD HGB USE SMARTSET 71339 04/07/202404/07, 04/06/2023, 04/06/2023, Additional history exists DXA [...] this encounter Medical Devices Implanted Type Area Silviculture Teacher Device Identifier Shelf Expiration Date Model / Serial / Lot Lens 21.0 Mx60 - [id number] Implanted:Qty: 1 on 03/23/2016 by Jax Theodore MD at OR [facility] [employer] : SURGICAL 10/02/2018 MX60-21.0 / [id number] / [id number] Lens 21.5 Mx60 - [id number] - [id number] Implanted:Qty: 1 on 04/20/2016 by Jax Theodore MD at OR [facility] Right: Eye [employer] : SURGICAL 09/02/2018 MX60-21.5 / [id number] / [id number] Valve Marni 3 Ultra 23mm - [id number] Implanted:Qty: 1 on 04/06/2023 by Payam Amor [place] at [facility] [place] [employer] [id number] / / documented as of this encounter Procedures Procedure Name Priority Date/Time Associated Diagnosis Comments ECHO, COMPLETE (2D), TRANS-THORACIC Routine 04/07/2023 8:59 AM EDT S/P TAVR (transcatheter aortic valve replacement) documented in this encounter Results * ECHO, COMPLETE (2D), TRANS-THORACIC (04/07/2023 8:59 AM EDT) 04/07/2023 8:01 AM EDT Steven Fields MD [facility] documented in this encounter Advance Directives Latest [...] and were consensually agreed upon. Care Teams Physician Allergist Immunologist Relationship Specialty Start Date End Date Chelsey Mitchell DO [address] [place] [address] PCP - General Family Medicine 07/10/18 documented as of this encounter
--- OUTSIDE RECORDS SUMMARY | 2023-06-11 13:23 | External Medical Summary ---
Author Name Unknown Address Unknown Organization : Laboratory Report Ordering Provider Test Date Status RM FAUSTNI 04/06/2023 10:47:16 Final NORMAL (NON-HEPARINIZED) 74- 137 SECONDS
HEPARINIZED 200+ SECONDS
CRITICAL GREATER THAN 1000 SECONDS
null Observation Date Value Abnormality Reference (Units ) Status Kaolin activated time [Units/volume] in Blood 04/06/2023 10:47:16 372 50-1000 (secs) Final Performing Location
--- OUTSIDE RECORDS SUMMARY | 2023-06-11 13:23 | External Medical Summary ---
Author Name Unknown Address Unknown Organization [id number]:LABORATORY [facility]OD [facility] - [address] [place] [address] Laboratory Report Ordering Provider Test Date Status RADHA CARRILLO 04/06/2023 08:30:50 Final Observation Date Value Abnormality Reference (Units ) Status ABO 04/06/2023 08:30:50 O Final RH 04/06/2023 08:30:50 Positive Final Performing Location LAB[facility]ATORY [facility] B[facility] - [address] [place] [address]
--- OUTSIDE RECORDS SUMMARY | 2023-06-11 13:23 | External Medical Summary ---
Author Name Unknown Address Unknown Organization [id number]:[facility] [place] [facility] [address] [facility] [address] [place] [address] Laboratory Report Ordering Provider Test Date Status AKBAR BAKER 04/06/2023 12:34:00 Final Observation Date Value Abnormality Reference (Units ) Status BUN 04/06/2023 12:34:00 28 Above high normal 6-20 (mg/dL) Final Creatinine 04/06/2023 12:34:00 1.2 Above high normal 0.5-1.0 (mg/dL) Final Glomerular filtration rate/1.73 sq M.predicted [Volume Rate/Area] in Serum, Plasma or Blood by Creatinine-based formula (CKD-EPI) 04/06/2023 12:34:00 46 Below low normal >=60 (mL/min) Final eGFR is calculated based on the CKD-EPI 2020 equation SODIUM 04/06/2023 12:34:00 138 135-146 (m mol/L) Final Potassium 04/06/2023 12:34:00 4.6 3.5-5.1 (m mol/L) Final Cl 04/06/2023 12:34:00 105 98-107 (mm ol/L) Final CO2 04/06/2023 12:34:00 21 Below low normal 22- 32 (mmol/L) Final Anion gap 04/06/2023 12:34:00 12 7-15 (mmol /L) Final Glucose 04/06/2023 12:34:00 153 Above high normal 70 -120 (mg/dL) Final Calcium 04/06/2023 12:34:00 8.7 8.4-10.2 ( mg/dL) Final Performing Location [facility] [place] [address] [place] [address]
--- OUTSIDE RECORDS SUMMARY | 2023-06-11 13:23 | External Medical Summary ---
Author Name Unknown Address Unknown Organization [id number]:LABORATORY [facility] [place] - [address] [place] [address] Laboratory Report Ordering Provider Test Date Status RADHA CARRILLO 04/06/2023 08:30:50 Final Warfarin Therapy
INR: 2 .0-3.0 conventional anticoagulation
INR: 2.5- 3.5 high intensity anticoagulation Observation Date Value Abnormality Reference (Units ) Status PT 04/06/2023 08:30:50 13.3 11.6-15.2 (seconds) Final INR 04/06/2023 08:30:50 1.0 0.8-1.2 Final Performing Location LABORATORY [facility] [place] - [address] [place] [address]
--- OUTSIDE RECORDS SUMMARY | 2023-06-11 13:23 | External Medical Summary ---
Author Name Unknown Address Unknown Organization [id number]:LAB[facility]ATORY [facility] [place] - [address] [place] [address] Laboratory Report Ordering Provider Test Date Status LORENA,GARCIA 04/06/2023 08:30:50 Final Observation Date Value Abnormality Reference (Units ) Status ABO 04/06/2023 08:30:50 O Final RH 04/06/2023 08:30:50 Positive Final RED BLOOD CELL ANTIBODY SCREEN 04/06/2023 08:30:50 Negative Final SPECIMEN EXPIRATION DATE 04/06/2023 08:30:50 04/09/2023 23:59 Final Performing Location LAB[facility]ATORY [facility] B[facility]OD [facility] - [address] [place] [address]
--- OUTSIDE RECORDS SUMMARY | 2023-06-11 13:23 | External Medical Summary ---
Author Name Unknown Address Unknown Organization [id number]:LABORATORY [facility] [place] - [address] [facility] [place] [address] Laboratory Report Ordering Provider Test Date Status ENRIQUE LAND 04/06/2023 08:30:50 Final Observation Date Value Abnormality Reference (Units ) Status WBC, Total 04/06/2023 08:30:50 7.41 4.00-10.8 0 (K/uL) Final RBC 04/06/2023 08:30:50 4.38 3.85-5.15 (M/uL) Final Hemoglobin 04/06/2023 08:30:50 12.6 12.0-15.3 (g/dL) Final Anemia reflex testing trigge rs on a HGB < 12.0 for Females and HGB < 13.0 for Males in accordance with the WHO Anemia Guidelines
Anemia reflex testing triggers on a HGB < 12.0 for Females and HGB < 13.0 for Males in accordance with the WHO Anemia Guidelines HCT 04/06/2023 08:30:50 41.1 36.0-45.2 (%) Final MCV 04/06/2023 08:30:50 93.8 81.5-97.5 (fL) Final MCH 04/06/2023 08:30:50 28.8 27.0-34.0 (pg) Final MCHC 04/06/2023 08:30:50 30.7 32.0-36.0 (g/dL) Final RDW 04/06/2023 08:30:50 14.9 11.5-15.5 (%) Final Platelets 04/06/2023 08:30:50 162 140-400 (K /uL) Final MPV 04/06/2023 08:30:50 10.4 6.6-11.1 ( fL) Final Nucleated erythrocytes/100 leukocytes [Ratio] in Blood by Automated count 04/06/2023 08:30:50 0 <=0 (/100 WBCs) Fi nal Performing Location LABORATORY [facility] [place] - [address] [facility] [address]
--- OUTSIDE RECORDS SUMMARY | 2023-06-11 13:23 | External Medical Summary | Summary of Care ---
Author Name Unknown Organization [facility] Address [address] [place] [address] Phone [phone] Care Team Providers Care Orthotics Technician Name Role Phone Chelsey Mitchell DO Primary Care Provider [phone] Reason for Visit * Reason Comments Follow Up * Precert (Within 10 days (routine)) - Pending Review Specialty Diagnoses / Procedures Referred By Josef t Referred To Contact Cardiac Studies Diagnoses History of transcatheter aortic valve replacement (TAVR) Procedures ECHO, COMPLETE (2D), TRANS-THORACIC Ning Devlin CRNP [address] [place] [address] Referral ID Status Reason Start Date Expiration Date Visits Requested Visits Authorized [id number] Pending Review Precert 05/24/2023 [id number] Encounter Details Date Type Department Care Team (Latest Contact Info) Description 04/17/2023 2:00 PM EST Office Visit Cardiology, [facility] [address] [place] [address] Ning Devlin CRNP [address] [place] [address] History of transcatheter aortic valve replacement (TAVR)*; Severe aortic stenosis; Coronary artery disease involving kake coronary artery of kake heart without angina pectoris; HTN, goal below 140/90; Dyslipidemia, goal LDL below 70; SSS (sick sinus syndrome) (HCC); Cardiac pacemaker in situ Allergies Active Allergy Reactions Criticality Noted Date Comments Bee Venom Abdominal pain,Edema face/lips/tongue High 02/17/2011 Sulfa Antibiotics Rash Medium 12/26/2007 documented as of this encounter (statuses as of 04/17/2023) Medications Medication Sig Dispensed Refills Start Date [...] as of this encounter (statuses as of 04/17/2023) Active Problems Problem Noted Date Diagnosed Date [...] as of this encounter (statuses as of 04/17/2023) Resolved Problems Problem Noted Date Diagnosed Date [...] as of this encounter (statuses as of 04/17/2023) Immunizations Name Administration Dates Next Due COVID-19 mRNA, LNP-s, No Pre serve, 2-Dose Series ([employer]) 10/01/2021,05/05/2021,09/10/2020,08/03 Covid-19, Mrna, Lnp-s, Pf, B ivalent, [...] Sign Reading Time Taken Comments Blood Pressure 138/74 04/17/2023 2:00 PM EST Pulse 68 04/17/2023 2:00 PM EST Temperature - - Respiratory Rate - - Oxygen Saturation 97% 04/17/2023 2:00 PM EST Inhaled Oxygen Concentration - - Weight 83 kg (183 lb) 04/17/2023 2:00 PM EST Height - - Body Mass Index 33.47 04/06/2023 8:20 AM EDT documented in this [...] * Patient Instructions* Ning Devlin CRNP - 04/17/2023 1:54 PM EST PATIENT INSTRUCTIONS: 1. No routine dental work should be completed in the first 6 months after TAVR. However if an acuteissue arises, patient is to alert the valve team. Antibiotics are needed for all routine dental work. 2. Slowly increase activity- no strenuous activities or driving x1 week post TAVR. Will discuss cardiac rehab at 1 month follow up. 3. Aspirin continued indefinitely 4. Keep follow up appt on 05/24/2023 as well as echocardiogram appt on 05/30/2023 Incisional Care -Cleanse incisions daily with soap and water. Do not vigorous scrub your incisions. -Pat the skin gently to dry. -Do not peel/pick at glue or scabs from your incisions. Allow them to fall off on their own. -If there is drainage from your incision, please cover it with a dressing. This can be a band-aid or with gauze and tape. -You may leave your incision open to air if there is no drainage present. -Do not apply lotions, ointments, or powder to your incisions unless cleared by your provider. Signs/Symptoms To Report: Please contact your surgeon or provider for the following: -You develop fevers or chills. -Redness, swelling, or warmth at or around the incision site. -Foul odor or purulent drainage from incision site. -Purulent drainage is a thick/milky discharge from a wound. Color may vary from yellow, brown, or green. -If there is an increase in drainage or oozing from your incision. -If your incision appears to be opening further than the incision line. -Increased pain at your incision site. documented in this encounter Progress Notes * Ning Devlin CRNP - 04/17/2023 2:00 PM EST Valve Clinic Cardiology Outpatient Clinic Note 04/17/2023 Patient disposition: 1 week post TAVR Primary Valet: Dr. Sparks Past medical history: Severe aortic stenosis, s/p TAVR (#23 mm [place] Marni S3 Ultra valve--over inflated by 1cc), 04/06[place]20[place] [facility] [place] Am[place] CAD, Mild single-vessel nonobstructive [...] common iliac artery Today the patient presents feeling generally well. Her main concern is regarding fatigue and deconditioning. States that some days she can be extremely active and other days she is more played out. She has been increasing her activities and has been going up and down the steps to do the laundry. She denies exertional chest pain or unusual shortness of breath. No palpitations, lightheadedness or dizziness. No orthopnea, PND, or increased lower extremity edema. No fever, chills, cough, hematochezia, melena, or hemoptysis. She states she is compliant with all medications, and offers no side effects. Denies tobacco and alcohol use. Does not follow with a dentist routinely-- has full dentures. Denies bleeding issues. Denies any known anesthesia issues. Of note she does have pancreatic cancer and follows with oncology for treatments. She is due for aninjection following today's appointment. Current Outpatient Medications Medication Sig Dispense Refill [...] Date Basal cell carcinoma of skin Maranda Gardner. Chronic rhinitis 12/08/06 Dr. De La Rosa History of malignant neuroendocrine tumor duodenum Hypothyroidism Sensorineural hearing loss 12/08/06 Dr. De La Rosa Temporomandibular joint disorders, unspecified 12/08/06 Dr. De La Rosa Vertigo 12/08/06 Dr. De La Rosa Past Surgical History: Procedure Laterality Date ARTHROPLASTY KNEE TOTAL [address] Qureshi, U CARDIAC CATH INJ. FOR CORONARY ANGIOGRAPHY 09/2012 [facility], no significant CAD COLONOSCOPY, DIAGNOSTIC (RECTUM) 02/08/2017 polyp removed not retrieved, diverticulosis/[facility] CORONARY ANGIOGRAPHY W/LEFT HEART CATH Right 02/10/2023 CORONARY ANGIOGRAPHY W/LEFT HEART CATH performed by Miles Zuleta DO at [facility] [facility] DILATION AND CURETTAGE (D&C) 1999 after postmenopausal bleeding. EGD, FLEXIBLE, DIAGNOSTIC 02/08/2017 mild-mod inflammation, Schatzki ring, repeat 2 mo/[facility] EGD, FLEXIBLE, DIAGNOSTIC 04/10/2017 mild-mod inflammation on bx, gastric ulcer, repeat 6-8 wks/[facility] EGD, FLEXIBLE, DIAGNOSTIC 05/23/2017 well differentiated neuroendocrine tumor / [facility] EGD, FLEXIBLE, DIAGNOSTIC 08/31/2017 gastritis, repeat 1 yr/[facility] EGD, W/ENDOSCOPIC US N/A 06/08/2017 ESOPHAGOGASTRODUODENOSCOPY (EGD), FLEXIBLE, TRANSORAL, ENDOSCOPIC ULTRASOUND performed by Chapincito Saha MD at [place]OS[place] [facility] [place]GD, W/ENDOSCOPIC US N/A 06/22/2018 ESOPHAGOGASTRODUODENOSCOPY (EGD), FLEXIBLE, TRANSORAL, ENDOSCOPIC ULTRASOUND performed by Chapincito Saha MD at [place]OS[place] [facility] [place]GD, W/ENDOSCOPIC US N/A 07/24/2018 ESOPHAGOGASTRODUODENOSCOPY (EGD), FLEXIBLE, TRANSORAL, ENDOSCOPIC ULTRASOUND performed by Chapincito Saha MD at [place]OS[place] [facility] EGD, W/ENDOSCOPIC US N/A 08/06/2019 ESOPHAGOGASTRODUODENOSCOPY (EGD), FLEXIBLE, TRANSORAL, ENDOSCOPIC ULTRASOUND performed by Chapincito Saha MD at [place] [facility] LUMBAR DISC ARTHROPLAST,REMV,ADDL INTERSPCE 2009 Br Rhona, lumbar 3 levels she thinks MOHS IMAGE (BIOMED) [address] Nielsen. REMOVE CATARACT, INSERT LENS PROSTH Right 04/20/2016 EXTRACAPSULAR CATARACT REMOVAL WITH INTRAOCULAR LENS performed by Jax Theodore MD at OR [facility] REPLACE AORTIC VALVE, PERCUTANEOUS FEMORAL Bilateral 04/06/2023 REPLACE AORTIC VALVE, PERCUTANEOUS FEMORAL performed by Payam Amor MD at [facility] REPLACE AORTIC VALVE, PERCUTANEOUS FEMORAL Bilateral 04/06/2023 REPLACE AORTIC VALVE, PERCUTANEOUS FEMORAL performed by Diego Rosas MD at [facility] Social History Tobacco Use Smoking status: Never [...] those noted in HPI. Physical Exam BP 138/74 | Pulse 68 | Wt 83 kg (183 lb) | SpO2 97% | BMI 33.47 kg/m | BSA 1.91 m General: No acute distress. A+Ox3. HEENT: [...] Ultra valve--over inflated by 1cc), 04/06/2023 [place] [facility] [place] Amor -NYHA class 2 1. Has top and bottom dentures-- No routine dental work should be completed in the first 6 months after TAVR. However if an acute issue arises, patient is to alert the valve team. Antibiotics are needed for all routine dental work. 2. Slowly increase activity--Will discuss cardiac rehab at 1 month follow up. Patient prefers [facility] at home cardiac rehab. 3. ASA continued indefinitely 4. Keep follow up appt on 05/24/2023 as well as echo appt on 05/30/2023 3. Coronary artery disease involving kake coronary artery of kake heart without angina pectoris -CAD, Mild single-vessel nonobstructive CAD with prox RCA 20% stenosis, remainder of coronaries areangiographically normal per pre TAVR catheterization 02/10/2023 -Stable, no angina. 4. HTN, goal below 140/90 Blood pressure controlled on multidrug regimen. 1. Continue lisinopril, hydrochlorothiazide, and metoprolol as ordered. 5. Dyslipidemia, goal LDL below 70 Controlled, LDL 65. 1. Continue atorvastatin 20 mg daily 6. SSS (sick sinus syndrome) (HCC) 7. Cardiac pacemaker in situ -Sick sinus syndrome status post dual-chamber permanent pacemaker 01/2020. The patient agrees to the above plan and will call with additional questions or concerns. ER with all emergencies advised. Check-out note: Keep follow up as scheduled. I spent a total of 40 minutes on the date of service in preparation, delivery, and documentation ofthe care provided to Magdalena Payan excluding any time spent in the performance of separately billed services. ISHAAN Hanson, Department of Cardiology This chart was completed in part utilizing [employer] Speech Voice Recognition Software. Grammatical errors, random [...] documented in this encounter Nursing Notes * Halima Greenfield CMA - 04/17/2023 1:59 PM EST Examination Room: 4 Name: Magdalena Payan Date of : (1935) Reason for Visit: 1 week Interim Hospitalization(s): valve replacement Problems/Concerns: denied Chest Pain/SOB: denied My [facility] is a way you can talk to [...] Care Team (Late st Contact Info) Description 04/19/2023 10:00 AM EST Immunization/Injectio n Hematology/Oncology Treatment, [place] [address] [place], [place] [address] Nurse, Med [address] [place] [address] 04/20/2023 10:30 AM EST Office Visit Family Practice, [place] [address] [facility] [place] [phone] Chelsey Mitchell DO [address] [facility] [place] [address] 05/24/2023 9:40 AM EST Laboratory Laboratory, [facility] [address] [facility] [phone] [facility] [address] [facility] [address] 05/24/2023 10:00 AM EST Office Visit Cardiology, [facility] [place] [address] Ning Devlin [facility] [address] [facility] [address] 05/30/2023 3:30 PM EST Cardiac Studies Cardiac Studies, [facility] [address] [facility] [place] [address] 07/13/2023 11:00 AM EST Cardiac Studies Cardiology, [facility] [address] [facility] [place] [address] [facility] [place] [address] 07/18/2023 11:00 AM EST Office Visit Cardiology, [facility] [address] [place] [address] Rosa Tyler, RYAN [address] [place] [address] 08/08/2023 11:15 AM EST Office Visit Hematology/Oncology [facility] [address] [facility] [place] [address] Rubin Rendon MD [address] [facility] [place] [address] 08/17/2023 9:30 AM EDT Office Visit Family [facility], [place] [address] [facility] [place] [phone] Chelsey Mitchell DO [address] [facility] [place] [address] 10/23/2023 10:00 AM EDT Nurse Only Ancillary Department, [place] [address] [facility], [place] [phone] [place], Nurse Annual Wellness [address] [place] [address] Scheduled Procedures Name Priority Associated Diagnoses Date/Ti [...] Additional history exists CKD PHOS USE SMARTSET 32304 02/11/2024 09/0 01/2023, 10/17/2022, 04/12/2021, Additional history exists CKD HGB USE SMARTSET 56265 04/07/202404/07, 04/06/2023, 04/06/2023, Additional history exists DXA [...] this encounter Medical Devices Implanted Type Area Utility Worker [employer] Device Identifier Shelf Expiration Date Model / Serial / Lot Lens 21.0 Mx60 - [id number] Implanted:Qty: 1 on 03/23/2016 by Jax Theodore MD at OR [facility] [employer] : SURGICAL 10/02/2018 MX60-21.0 / [id number] / [id number] Lens 21.5 Mx60 - [id number] - [id number] Implanted:Qty: 1 on 04/20/2016 by Jax Theodore MD at OR [facility] Right: Eye [employer] : SURGICAL 09/02/2018 MX60-21.5 / [id number] / [id number] Valve Marni 3 Ultra 23mm - [id number] Implanted:Qty: 1 on 04/06/2023 by Payam Amor MD at [facility] [facility] [employer] [id number] 01/31/2024 [id number] / / documented as of this encounter Visit Diagnoses Diagnosis History of transcatheter aortic valve replacement (TAVR)- Primary Severe aortic stenosis Aortic valve disorders Coronary artery disease involving kake coronary artery of kake heart without angina pectoris HTN, goal below [...] and were consensually agreed upon. Care Teams Orthotics Technician Relationship Specialty Start Date End Date Chelsey Mitchell DO [address] [place] [facility] [place] [address] PCP - General Family Medicine 07/10/18 documented as of this encounter"
--- OUTSIDE RECORDS SUMMARY | 2023-06-11 13:23 | External Medical Summary | Summary of Care ---
Author Name Unknown Organization [facility] Address [address] [place] [address] Phone [phone] Care Team Providers Care Timber Grader Name Role Phone Tania Mitchell DO Primary Care Provider Reason for Visit * Reason Comments eRx-Medication Refill Encounter Details Date Type Department Care Team (Late st Contact Info) Description 04/12/2023 Refill [facility] [address] [place] [facility] [place] [facility] [place] [address] Tania Mitchell DO [address] [place] [address] Hypothyroidism Allergies Active Allergy Reactions Criticality Noted Date Comments Bee Venom Abdominal pain,Edema face/lips/tongue High 02/17/2011 Sulfa Antibiotics Rash Medium 12/26/2007 documented as of this encounter (statuses as of 04/12/2023) Medications Medication Sig Dispensed Refills Start Date [...] MOUTH DAILY 45 Tablet 2 3 Active Lisinopril 40 MG Oral TabletIndications:H TN, goal below 130/80 TAKE 1 TABLET BY MOUTH ONCE DAILY 90 Tablet 1 3 Active Omeprazole 40 MG Oral Capsule Delayed Release (PriLOSEC)Indicatio ns:Hx of gastric ulcer TAKE 1 CAPSULE BY MOUTH ONCE DAILY 1 hour before the first meal of the day 90 Capsule 1 3 Active OneTouch Verio In Vitro Strip (Glucose Blood) use as directed to test blood sugar once a day 100 Strip 2 3 Active HYDROcodone-Acetami nophen 5-325 MG Oral TabletIndications:G eneralized OA,Osteoarthritis of multiple joints, unspecified osteoarthritis type Take 1 Tablet by mouth every 6 hours as needed for Pain, Mild. 30 Tablet 0 3 Active Atorvastatin Calcium 20 MG Oral Tablet (Lipitor)Indication s:Dyslipidemia, goal LDL below 100 TAKE 1 TABLET BY MOUTH ONCE DAILY 90 Tablet 1 3 Active Levothyroxine Sodium 100 MCG Oral Tablet (Levoxyl)Indication s:Hypothyroidism take 1 tablet by mouth once daily at least 30 minutes before breakfast or any other medications 90 Tablet 1 3 Active Levothyroxine Sodium 100 MCG Oral Tablet (Levoxyl)Indication s:Hypothyroidism take one tablet by mouth daily at least 30 minutes before breakfast and other medications 90 Tablet 1 3 04/12/20 23 Discontinued documented as of this encounter (statuses as of 04/12/2023) Active Problems Problem Noted Date Diagnosed Date [...] as of this encounter (statuses as of 04/12/2023) Resolved Problems Problem Noted Date Diagnosed Date [...] as of this encounter (statuses as of 04/12/2023) Immunizations Name Administration Dates Next Due COVID-19 mRNA, LNP-s, No Pre serve, 2-Dose Series ([employer]) 10/01/2021,05/05/2021,09/10/2020,08/03 Covid-19, Mrna, Lnp-s, Pf, B ivalent, [...] encounter Miscellaneous Notes * Telephone Encounter - Alexandria Dior [facility] - 04/12/2023 7:10 PM EST Signed Prescriptions: Disp Refills Levothyroxine Sodium 100 MCG Oral Tablet (*90 Tab*1 Sig: take 1 tablet by mouth once daily at least 30 minutes before breakfast or any other medicationsAuthorizing Provider: TANIA MITCHELL User: ALEXANDRIA DIOR documented in this encounter Plan of Treatment Upcoming Encounters Date Type Department Care Team (Late st Contact Info) Description 04/17/2023 2:00 PM EST Office Visit Cardiology, [facility] [address] [facility] [place] [address] Ning Devlin CRNP [facility] [address] 04/19/2023 10:00 AM EST Immunization/Injectio n Hematology/Oncology Treatment, [place] [address] [place] [address] Nurse, Med [address] [place] [address] 04/20/2023 10:30 AM EST Office Visit [facility] [address] [place] [phone] Tania Mitchell DO [address] [place] [address] 05/24/2023 9:40 AM EST Laboratory Laboratory, [facility] [place] [phone] [facility] [address] [place], [place] [address] 05/24/2023 10:00 AM EST Office Visit Cardiology, [facility] [address] [facility] [place] [address] Ning Devlin CRNP [address] [place] [address] 05/30/2023 3:30 PM EST Cardiac Studies Cardiac Studies, [facility] [address] [facility] [place] [address] 07/13/2023 11:00 AM EST Cardiac Studies Cardiology, [facility] [address] [place] [address] [facility] [address] [place] [address] 07/18/2023 11:00 AM EST Office Visit Cardiology, [facility] [address] [facility] [place] [address] Rosa Tyler PA-C [address] [place] [address] 08/08/2023 11:15 AM EST Office Visit Hematology/Oncology [facility] [place] [address] [place] [address] Rubin Rendon MD [address] [place] [address] 08/17/2023 9:30 AM EDT [address] [phone] Tania Mitchell, DO [address] [facility], [place] [address] 10/23/2023 10:00 AM EDT Nurse Only Ancillary Department, [place] [address] [facility] [address] [place], Nurse Annual Wellness [address] [place] [address] Scheduled Procedures Name Priority Associated Diagnoses Date/Ti [...] Additional history exists CKD PHOS USE SMARTSET 08585 02/11/202401/2023, 10/17/2022, 04/12/2021, Additional history exists CKD HGB USE SMARTSET 56199 04/07/202404/07, 04/06/2023, 04/06/2023, Additional history exists DXA [...] this encounter Medical Devices Implanted Type Area Education Department Chair Device Identifier Shelf Expiration Date Model / Serial / Lot Lens 21.0 Mx60 - [id number] Implanted:Qty: 1 on 03/23/2016 by Jax Theodore MD at [facility] [employer] : SURGICAL 10/02/2018 MX60-21.0 / [id number] / [id number] Lens 21.5 Mx60 - [id number] - [id number] Implanted:Qty: 1 on 04/20/2016 by Jax Theodore MD at [facility] Right: Eye [employer] : SURGICAL 09/02/2018 MX60-21.5 / [id number] / [id number] Valve Marni 3 Ultra 23mm - [id number] Implanted:Qty: 1 on 04/06/2023 by Payam Amor MD at [facility] [employer] [id number] 01/31/2024 [id number] / / documented as of this encounter Visit Diagnoses Diagnosis Hypothyroidism Unspecified hypothyroidism documented in this encounter Advance Directives Latest [...] and were consensually agreed upon. Care Teams Timber Grader Relationship Specialty Start Date End Date Tania Mitchell DO [address] [facility] [place] [address] PCP - General Family Medicine 07/10/18 documented as of this encounter
--- OUTSIDE RECORDS SUMMARY | 2023-06-11 13:23 | External Medical Summary | Summary of Care ---
Author Name Unknown Organization [facility] Address [address] [place] [address] Phone [phone] Care Team Providers Care Shuttle Fixer Name Role Phone Tania Mitchell DO Primary Care Provider [phone] Reason for Referral * Evaluate & Treat - Unlimited Visits (Within 30 days (routine)) - Pending Review Specialty Diagnoses / Procedures Referred By Josef hooks Referred To Contact CARDIAC REHAB / Cardiology Diagnoses S/P TAVR (transcatheter aortic valve replacement) Steven Fields MD [address] [place] [address] Referral ID Status Reason Start Date Expiration Date Visits Requested Visits Authorized [id number] Pending Review Specialty Services Required 04/06/[phone] Question Answer Referral Priority Within 30 days (routine) Where should this appointment be scheduled? [facility] Comments Discharge Order Reason for Visit * Auth/Cert Specialty Diagnoses / Procedures Referred By Josef hooks Referred To Contact Diagnoses Aortic stenosis Aortic stenosis [I35.0] Procedures REPLACE AORTIC VALVE, PERCUTANEOUS FEMORAL REPLACE AORTIC VALVE, PERCUTANEOUS FEMORAL REPLACE AORTIC VALVE, PERCUTANEOUS FEMORAL REPLACE AORTIC VALVE, PERCUTANEOUS FEMORAL Referral ID Status Reason Start Date Expiration Date Visits Re quested Visits Authorized [id number] Encounter Details Date Type Department Care Team (Latest Contact Info) Description 04/06/2023 7:30 AM EDT - 04/07/2023 2:00 PM EDT Hospital Encounter [facility] 8, [facility] Advanced Medicine 8th Floor [address] [place] [address] Payam Amor MD [address] [place] [address] Mima Sun MD [address] [place] [address] Lynn Guardado MD [address] [place] [address] EKG Report Discharge Disposition: Home - Self Care Allergies [...] TWICE DAILY 180 Tablet 3 3 Active Tradjenta 5 MG Oral Tablet (linaGLIPtin)Indica tions:Type 2 diabetes mellitus with stage 3b chronic kidney disease, with long-term current use of insulin (HCC) TAKE 1 TABLET BY MOUTH ONCE DAILY 90 Tablet 2 3 Active hydroCHLOROthiazide 25 MG Oral Tablet (Hydrodiuril) TAKE HALF TABLET BY MOUTH DAILY 45 Tablet 2 3 Active Levothyroxine Sodium 100 MCG Oral Tablet (Levoxyl)Indication s:Hypothyroidism take one tablet by mouth daily at least 30 minutes before breakfast and other medications 90 Tablet 1 3 Active [...] ONCE DAILY 90 Tablet 1 3 Active Meclizine HCl 12.5 MG Oral Tablet (Antivert)Indicatio ns:Vertigo TAKE ONE TABLET BY MOUTH THREE TIMES DAILY if needed for dizziness 30 Tablet 1 2 04/07/20 23 Discontinued documented as of this encounter [...] Sign Reading Time Taken Comments Blood Pressure 148/79 04/07/2023 7:05 AM EDT Pulse 62 04/07/2023 7:05 AM EDT Temperature 36.4 C (97.5 F) 04/07/2023 7:05 AM ED T Respiratory Rate 16 04/07/2023 7:05 AM EDT Oxygen Saturation 97% 04/07/2023 7:05 AM EDT Inhaled Oxygen Concentration - - Weight 81.6 kg (180 lb) 04/06/2023 8:20 AM EDT Height 157.5 cm (5' 2") 04/06/2023 8:20 AM EDT Body Mass Index 32.92 04/06/2023 8:20 AM EDT documented in this [...] No 04/06/2023 documented as of this encounter Discharge Instructions * Discharge Instr - AVS* Rosibel Lott, - 04/07/2023 11:53 AM EDT Discharge Date: 04/07/2023 The information below provides you with the instructions and the list of medications you need to betaking following discharge from the hospital. If you have any questions, please ask before leaving. If you have questions after leaving, you can reach us at the numbers below. YOUR HOSPITAL PROVIDERS: Discharging Physician: Dr. Sun Department: Cardiology IF YOU HAVE QUESTIONS: - To reach this Provider Monday through Monday (8:00 AM to 4:30 PM) for any questions or test results: Call [phone] - For after-hours concerns: Call [phone] and have your provider paged, or the provider on callfor the Department of Hospital Medicine paged. For routine questions, your [facility] Cardiology Team prefers the use of Fullscreen. Fullscreen is an online internet tool to help you meet your health care needs quickly by providing a secure, confidential way to view your health records and communicate with your [facility] Cardiology Team. To sign up for Fullscreen go to [email or web address], "Click" [place] Now on the right side of the screen and complete the user registration information. A BRIEF SUMMARY OF YOUR HOSPITAL STAY: You were admitted to the hospital after you underwent replacement of your aortic valve for monitoring. You remained stable without any complications and were discharged home with plans to follow-up with your primary care provider and cardiology team. Your main diagnosis at discharge was: aortic stenosis now with aortic valve replacement Operations & Procedures performed: aortic valve replacement on 04/06/2023 Complications: none significant Inpatient test results that are pending at discharge: none Advance Directive Documented: Advance Directive Does the Patient have an Advance Directive? Yes YOUR FOLLOW UP APPOINTMENTS: Primary Care Provider Information: PCP: [place] [address] An appointment was requested with your PCP for within 1 week of discharge from the hospital. (Please take this form to this visit with your primary care physician.) You have follow-up with cardiology ([facility]HA[facility] Naidu ) on 04/17/2023 at 2:00 PM. An appointment was requested with Structural Cardiology (Dr. Amor) within one month of discharge. You need the following studies in the future: n/a, at the discretion of your PCP. INSTRUCTIONS: Diet: Heart healthy diet Activity: see below for specific instructions and restrictions Driving: see below for specific instructions and restrictions Date you may return to work or school: see below for specific instructions and restrictions Activity * The following activities are restricted until you are seen in clinic for you post procedure check(approximately 1 week). o Do not drive o Do not lift anything heavier than 10 pounds o No heavy chores (housekeeping, lawn/yard care, etc.) * There is no restriction on climbing stairs. Climb them at a comfortable pace. * Get up in the morning and dress in your regular, every day clothes. * Gradually get back into your daily routine. Ordinary activities such as dressing, showering and grooming may make you tired during your first days at home. Spread your activities out over the day and take frequent rest periods. * The more you are up and about the quicker you will be able to resume your daily activities. o Look for opportunities to move around and try to increase your activity level by small amounts every day. o Concentrate initially on increasing the amount of time you are doing an activity (not how fast you do the activity). o Start with short walks several times a day and progress as you are able. * During hot and humid weather, walk indoors or during the coolest part of the day (decal maker, late evening). * During cold weather, walk indoors or during the warmest part of the day (afternoons). * Sit up in a chair as often as possible. * Support stockings o These stockings are used to prevent postoperative leg swelling and blood clots. o Put on clean stockings in the morning and remove them at night. o When putting them back on, get all the wrinkles out. o Wear the stockings until your ankles and legs are no longer swollen. * Consider a cardiac rehabilitation program. o This program combines modern equipment and techniques with individual counseling and instructionsby exercise physiologists and nurses. o Cardiac rehabilitation generally starts about one month after going home. o If you have not heard about or been contacted by a cardiac rehabilitation program after going home, please contact your heart team or discuss with your provider at your one-month office post procedure office visit. Procedure Site * Normal occurrences at procedure sites: o Soreness o Small amount of drainage o Bruising that extends several inches around the site o One or two small lumps (about the size of a marble) at the site o Usually any discomfort or swelling at the site will gradually return to normal over the next month * A small bandage or Band-Aid will be placed over the area where the catheter(s) have been removed. o The dressing should be removed the day after discharge. o It is important to keep the area clean and dry o You may shower the day after your procedure. o Wash with soap and water, pat the incision dry. o Avoid lotions or creams at incision site. o Leave the area open to air. o Apply a Band-Aid if there is some drainage or oozing. o Avoid tub baths for 5-7 days. * It is important to check the site for signs of infection or complications o If you are unable to see the site, have someone look at it for you. o Signs of infection include: drainage (pus), fever and/or chills. o Some soreness at the site is normal. Tylenol may be taken for this soreness unless otherwise instructed by your physician. o If you think that the site may be infected, notify your physician. o If you have severe pain at the procedure site, a throbbing lump under the skin, numbness, loss offeeling or change in color of the extremity below the procedure site, notify your physician. o You may notice a drop or two of blood on the dressing, this is generally not a problem. If more significant bleeding occurs, put pressure on the site with your hand and seek medical attention immediately. o If a large lump is felt, if you have increased pain at the site, or if the bruise and/or lump areincreasing in size, notify your physician. o Extensive bleeding at the procedure site or a lump which is expanding quickly is an emergency. Call 911 for an ambulance to take you to the nearest emergency room. Lie down then apply firm pressuredirectly over the site, holding pressure until emergency personnel have arrived. Medications * Your medications and/or dose of prior medications may change when you are discharged. * Pay special attention to the medication section of your discharge instructions and make sure you make the appropriate changes to your home regimen. * You may be prescribed antiplatelet medications (usually Plavix/clopidogrel and/or Aspirin). Thesemedications make platelets (cells used to help blood clot) in your blood less sticky. o Plavix is usually taken for 3 months, unless otherwise instructed by your doctor, and aspirin will be lifelong. o Do not discontinue these medications unless directed by your physician Protect your new heart valve * Protective (or prophylactic) antibiotics may need to be taken prior to dental procedures, surgeryand some diagnostic tests and invasive procedures to prevent infection from developing around your new heart valve. Check with your physician prior to undergoing any procedure. * The type of valve you have is #23 mm [place] Marni S3 Ultra valve. Please write this informationdown and carry it with you at all times. o Carry this information at all times and show it to any physician or dentist who treats you. o Consider obtaining some type of identification bracelet to inform medical personnel about your valve type. o If you need an MRI in the future, show this information to your provider to determine if the valve you received is MRI compatible. Follow Up * Be sure to come in for all scheduled follow up visits. * You will be seen in valve clinic: o One week post procedure o One month post procedure with an echocardiogram to check your new valve o Six months post procedure o One year post procedure with an echocardiogram to check you new valve o Yearly thereafter with echocardiograms * You should continue to have regular follow up with your Primary Care Provider o Schedule an appointment 1-2 weeks after discharge * You should have regular follow up with your primary maid supervisor who will continue to manage yourregular cardiac care. o Schedule an appointment approximately 3 months after discharge. MEDICATION CHANGES STOP TAKING THE FOLLOWING MEDICINES: 1. Meclizine - this was discontinued as it was reported as not taking. CONTINUE TAKING ALL OTHER MEDICINES PRESCRIBED documented in this encounter Progress Notes * Steven Fields MD - 04/06/2023 1:46 PM EDT PROGRESS NOTE - Cardiology [facility] [address] Name: Magdalena Almazan Location: [facility] Date: 04/06/2023 Time: 1:46 PM SUBJECTIVE: This is an 87-year-old female post TAVR (Marni valve) for severe symptomatic aortic stenosis. Postprocedurally she is awake, alert and oriented. She offers no complaints, denies chest pain, shortness on breath or palpitations. Femoral cath site - mild oozing on the right side, no tenderness or swelling. Postop EKG - sinus rhythm, new onset right bundle branch block Postop x-ray - no pleural or pericardial effusion or pneumothorax Postop labs - Mag 1.9 - received a dose of magnesium OBJECTIVE: Most Recent Vital Signs: BP: 90 mmHg/60 mmHg (04/06/23 1251) Pulse: 71 (04/06/23 1251) Temp: 36.5 C (04/06/23 1135) Resp: 20 (04/06/23 1251) SpO2: 94 % (04/06/23 1251) Vital Signs Last 24 Hours: Systolic BP: Most Recent Systolic BP Av.3 mmHg Min: 90 mmHg Max: 165 mmHg Temperature: Most Recent Temperature Av.4 C Min: 36.22 C Max: 36.5 C Pulse: Pulse Av.7 Min: 62 Max: 85 Respirations: Resp Av.2 Min: 11 Max: 22 SpO2: SpO2 Av.7 % Min: 94 % Max: 100 % Constitutional: no acute distress HEENT: normal: normocephalic, atraumatic; no masses, tenderness, or adenopathy Neck: supple CV: normal heart sounds, normal rate, normal rhythm, no gallop, no rub, intact distal pulses, (+) murmur Chest: normal respiratory effort, lungs clear to auscultation and percussion Abdomen: normal: soft, bowel sounds normal, no masses, tenderness or organomegaly Extremities: no edema Skin: warm, dry: Neuro: alert, oriented to person, place, and time, normal mental status exam LABS: Labs reviewed as indicated below: Blood Gas: No results in the last 7 days - inpatent use only Chemistry Panel: Lab results within last 7 days (see chart for full results) Units 04/06/23 1234 04/06/23 0830 Sodium mmol/L 138 139 Potassium mmol/L 4.6 4.8 Chloride mmol/L 105 105 CO2 mmol/L 21* 23 BUN mg/dL 28* 31* Creatinine mg/dL 1.2* 1.4* Estimated Glomerular Filtration Rate mL/min 46* 38* Glucose mg/dL 153* 148* Calcium mg/dL 8.7 9.6 Magnesium mg/dL 1.9 -- Anion Gap mmol/L 12 11 Complete Blood Count: Lab results within last 7 days (see chart for full results) Units 04/06/23 1234 04/06/23 0830 WBC K/uL 7.21 7.41 HGB g/dL 11.4* 12.6 HCT % 36.3 41.1 PLT K/uL 126* 162 MCV fL 94.0 93.8 Cardiac Studies: Lab results within last 7 days (see chart for full results) Units 04/06/23 0830 BNP, NT-Pro pg/mL 549* Coagulation Studies: Lab results within last 7 days (see chart for full results) Units 04/06/23 0830 Prothrombin Time seconds 13.3 INR 1.0 Liver Function Panel: No results in the last 7 days - inpatent use only Infectious Studies: No results in the last 7 days - inpatent use only IMAGING: No imaging results in the last 24 hours IMPRESSION and PLAN: Active Problems: Post TAVR for severe symptomatic aortic stenosis-Marni valve New onset right bundle branch block POA = Present On Admission Hypertension Dyslipidemia Chronic low back pain Pancreatic head neuroendocrine tumor Sick sinus syndrome with dual-chamber ppm Post TAVR for severe symptomatic aortic stenosis-Marni valve with new onset right bundle-branch block - follow-up pod 1 Echo - continue telemetry monitoring - close monitoring of both groin sites - q.4 vital monitoring - postop EKG showed new onset right bundle-branch block - withhold BUILDING RENTAL MANAGER Lopressor 25 mg once daily - postop x-ray is negative for postop complications - heparin 5000 IU subQ three times daily for VTE prophylaxis - maintain potassium greater than 4 and magnesium greater than 2 Chronic problems - hypertension - continue BUILDING RENTAL MANAGER lisinopril 40 mg once daily, continue BUILDING RENTAL MANAGER hydro Diuril 12.5 mg once daily - dyslipidemia-continue BUILDING RENTAL MANAGER Lipitor 20 mg once daily - hypothyroidism - continue BUILDING RENTAL MANAGER levothyroxine 100 mcg once daily - diabetes -not currently on any medication, we will continue to monitor glucose - continue BUILDING RENTAL MANAGER aspirin - GERD-continue BUILDING RENTAL MANAGER Prilosec 40 mg once daily Patient discussed and examined with Dr Dino Fields PGY-1 Neurology Associated attestation - Mima Sun MD - 04/07/2023 2:48 PM EDT I saw and evaluated the patient today. I have reviewed the trainee note and agree.Late entry for 04/06/2023 documented in this encounter H&P Notes * Isabella Robles CRNP - 04/05/2023 8:10 AM EDT Images from the original note were not included. This note has been copy and pasted from an office visit with Vel Paniagua PA-C, of Cardiac Surgery on 03/06/23. HISTORY AND PHYSICAL EXAMINATION - [facility] Name: Magdalena Almazan Date: 03/06/2023 Time: 115 PM REFERRING PHYSICIAN: Tania Mitchell DO PCP: Tania Mitchell DO BULLET SWAGING MACHINE OPERATOR: Clare Preference for return visit: [facility] HPI: Magdalena Almazan is a 87 year old female who presents with progressive by ECHO.She has been experiencing worsening fatigue and decreased functional capacity of late. Some HANLEY which is relieved with long rests. TAVR CT is pending. Being treated for pancreatic neuroendocrine tumor. Patient has history of chest pain/angina: No Patient has history of SOB/HANLEY: No orthopnea or PND. No lower extremity edema,SOB HANLEY with modest work or stairs Patient has syncope/presyncope: No palpitations. No lightheadedness or episodes of syncope. Presentation associated with endocarditis/bacteremia: No Patient has PMH of:Severe ,htn,dld,DM, Hypothyroidism, SSS s/p DDD PPM 2019,current pancreatic head neuroendocrine tumor, on treatment with Sandostatin-monthly injection Mayes Heart Failure Classification: Class III (Moderate) Current Outpatient Medications Medication Sig Dispense Refill [...] BY MOUTH TWICE DAILY 180 Tablet 3 Tradjenta 5 MG Oral Tablet (linaGLIPtin) TAKE 1 TABLET BY MOUTH ONCE DAILY 90 Tablet 2 hydroCHLOROthiazide 25 MG Oral Tablet (Hydrodiuril) TAKE HALF TABLET BY MOUTH DAILY 45 Tablet 2 Atorvastatin Calcium 20 MG Oral Tablet (Lipitor) TAKE 1 TABLET BY MOUTH ONCE DAILY 90 Tablet 1 Levothyroxine Sodium 100 MCG Oral Tablet (Levoxyl) take one tablet by mouth daily at least 30 minutes before breakfast and other medications 90 Tablet 1 Lisinopril 40 [...] needed for Pain, Mild. 30 Tablet 0 Meclizine HCl 12.5 MG Oral Tablet (Antivert) TAKE ONE TABLET BY MOUTH THREE TIMES DAILY if needed for dizziness (Patient not taking: Reported on 03/06/2023) 30 Tablet 1 No current facility-administered medications for this visit. ALLERGIES: Bee venom and Sulfa antibiotics PAST MEDICAL HISTORY: Past Medical History: Diagnosis Date Basal cell carcinoma of skin Maranda Gardner. Chronic rhinitis 12/08/06 Dr. De La Rosa History of malignant neuroendocrine tumor duodenum Hypothyroidism Sensorineural hearing loss 12/08/06 Dr. De La Rosa Temporomandibular joint disorders, unspecified 12/08/06 Dr. De La Rosa Vertigo 12/08/06 Dr. De La Rosa PAST SURGICAL HISTORY: Past Surgical History: Procedure Laterality Date ARTHROPLASTY KNEE TOTAL [address] Qureshi, U CARDIAC CATH INJ. FOR CORONARY ANGIOGRAPHY 09/2012 [facility], no significant CAD COLONOSCOPY, DIAGNOSTIC (RECTUM) 02/08/2017 polyp removed not retrieved, diverticulosis/[facility] CORONARY ANGIOGRAPHY W/LEFT HEART CATH Right 02/10/2023 CORONARY ANGIOGRAPHY W/LEFT HEART CATH performed by Miles Zuleta DO at [facility] DILATION AND CURETTAGE (D&C) 1999 after postmenopausal bleeding. EGD, FLEXIBLE, DIAGNOSTIC 02/08/2017 mild-mod inflammation, Schatzki ring, repeat 2 mo/[facility] EGD, FLEXIBLE, DIAGNOSTIC 04/10/2017 mild-mod inflammation on bx, gastric ulcer, repeat 6-8 wks/[facility] EGD, FLEXIBLE, DIAGNOSTIC 05/23/2017 well differentiated neuroendocrine tumor / [facility] EGD, FLEXIBLE, DIAGNOSTIC 08/31/2017 gastritis, repeat 1 yr/[facility] EGD, W/ENDOSCOPIC US N/A 06/08/2017 ESOPHAGOGASTRODUODENOSCOPY (EGD), FLEXIBLE, TRANSORAL, ENDOSCOPIC ULTRASOUND performed by Chapincito Saha MD at [facility] [place], W/ENDOSCOPIC US N/A 06/22/2018 ESOPHAGOGASTRODUODENOSCOPY (EGD), FLEXIBLE, TRANSORAL, ENDOSCOPIC ULTRASOUND performed by Chapincito Saha MD at [facility]OS[facility] [place], W/ENDOSCOPIC US N/A 07/24/2018 ESOPHAGOGASTRODUODENOSCOPY (EGD), FLEXIBLE, TRANSORAL, ENDOSCOPIC ULTRASOUND performed by Chapincito Saha MD at [facility]OS[facility] [place], W/ENDOSCOPIC US N/A 08/06/2019 ESOPHAGOGASTRODUODENOSCOPY (EGD), FLEXIBLE, TRANSORAL, ENDOSCOPIC ULTRASOUND performed by Chapincito Saha MD at [place]OS[place] [facility] LUMBAR DISC ARTHROPLAST,REMV,ADDL INTERSPCE 2009 Br Rhona, lumbar 3 levels she thinks MOHS IMAGE (BIOMED) [address] Nielsen. REMOVE CATARACT, INSERT LENS PROSTH Right 04/20/2016 EXTRACAPSULAR CATARACT REMOVAL WITH INTRAOCULAR LENS performed by Jax Theodore MD at OR [facility] Hx of vein harvest or stripping?: no SOCIAL HISTORY: Drug Use: never Social History Tobacco Use Smoking status: Never Passive exposure: Never Smokeless tobacco: Never Vaping Use Vaping Use: Never used Substance Use Topics Alcohol use: No Drug use: No FAMILY HISTORY: Family History Problem Relation Age of Onset Heart Disorder Sister CAD Heart Disorder Sister CAD Heart Disorder Brother passed DE Family History of premature CAD: yes REVIEW OF SYSTEMS: Constitutional: denies weight loss, denies fever, denies shaking chills Eyes: s/p cataract surgery,dry eyes uses restasis Ear, nose and throat: decreased hearing, with tinnitus, denies trouble swallowing, denies epistaxis Dental: top plates, bottom plates Cardiac: may have had silent DE denies CVA Vascular: no claudication Respiratory: shortness of breath, dyspnea on exertion (HANLEY) Gastrointestinal: denies dysphagia, denies constipation, denies diarrhea, denies blood in bowel movementspancreatic cancer,hx of stomach polyp Genitourinary: occasional UTI Musculoskeletal: chronic arthritis pains,TKR b/l,back surgery,right hip Psychiatric: denies depression, denies anxiety Skin: denies rash, denies non-healing ulcers, denies jaundice Neurologic: denies trouble speaking, denies syncope, denies weakness Endocrine: glucoses well controlled Hematologic / Lymphatic: denies blood clotting problems, denies anemia,ASA only Immunologic: denies trouble fighting infections, denies exposure to AIDS, denies exposure to hepatitis, denies exposure to TB CARDIOTHORACIC COMPLETE PHYSICAL EXAM: Most Recent Vital Signs: BP 126/74 (BP Site: Left Arm, BP Position: Sitting, BP Cuff Size: Regular) | Pulse 64 | Wt 84.9 kg (187 lb 1.6 oz) | SpO2 95% | BMI 34.22 kg/m | BSA 1.93 m PHYSICAL EXAM: General: no acute distress and stated age Head: normocephalic, no masses, lesions, tenderness or abnormalities Eyes: conjunctiva are pink and non-injected, sclera clear, arcus senilis, PERRLA, EOMI Nose: normal Teeth: edentulous Neck: supple, no adenopathy, thyroid normal size, non-tender, without nodularity, normal jugular venous pulse, no hepatojugular reflux, transmitted murmer from Chest: normal shape and normal respiratory effort,slightly kyphotic Lungs: clear to auscultation and percussion Cardiac Exam: regular rate & rhythm A systolic murmur is present - holosystolic, grade 3/6, radiation to the neck Pulses: The following pulses are normal: carotids, femorals, abdominal aorta, radials, diminished dorsalis pedis pulses, and posterior tibials Abdomen: abdomen soft, non-tender, no abnormal masses, no hepatosplenomegaly, and obese Extremities: no edema, no clubbing, and no cyanosis Neuro: grossly normal exam Veins superficial varicosities not involving the GSV STUDIES: Cardiac Cath Data: Single vessel non obstructive CAD -RCA 20% Echocardiogram:12/2022 TTE Interpretation Summary The examination is adequate to [...] increased reaching criteria for severe aortic stenosis AoV2 max 414, AoPG max 68.7, CHANA 0.74 cm2, Asc Ao 4.2 cm ,Ao Root 3.[address] -P Society of Thoracic Surgeons' Risk Score: STS site 1403 IMPRESSION: 87 y/o female with severe and htn,dld,DM Hypothyroidism, SSS s/p DDD PPM 2019,current pancreatic head neuroendocrine tumor, in treatment PLAN: Per Dr Smith, likely TAVR Vel Paniagua PA-C CARDIOTHORACIC SURG [facility] [phone] Patient seen and studies reviewed. Magdalena Almazan is an 87-year-old female with past medical history significant for hypertension, dyslipidemia, diabetes and hypothyroidism who has had known aortic stenosis for many years. She has begun to experience increasing shortness of breath and fatigue. Echocardiogram confirms progression of a her aortic stenosis to a now severe degree. Mean gradient is 42 mmHg. Left ventricular functionis preserved. Coronary angiogram was negative for obstructive coronary disease. 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 Magdalena is very functional despite her multiple medical issues and I believe she would be a good candidate for aortic valve replacement therapy. Her advanced age and comorbidities place her at very high, almost prohibitive risk for surgical aortic valve replacement. She would be a good candidate for transcatheter valve therapy. She has yet to undergo her TAVR CT scan. Once this is available we will review all her studies with the structural heart team and plan TAVR should all agree. Diego Smith MD Cardiac Surgery [facility] documented in this encounter Procedure Notes * Payam Amor MD - 04/06/2023 12:15 PM EDT Magdalena Almazan 87 year old [id number] 04/06/23 TRANSCATHETER AORTIC VALVE REPLACEMENT STAFF PHYSICIANS: 1. Dr. Amor 2. Dr. Rosas The attending physicians were present for the following: Vascular access Catheter placement Diagnostic Intervention Device implantation Vascular closure Intraprocedural medication ordering ASSISTING PHYSICIANS: 1. Christopher Jackson DO INDICATION FOR PROCEDURE: Severe Symptomatic Aortic Stenosis PROCEDURES: Successful transfemoral implantation of a # 23 mm Blanton Marni S3 Ultra valve (overinflated by one cc) Placement of temporary venous pacemaker Arterial access site closure with dual Perclose Proglide devices Selective angiography of the right common iliac artery PROCEDURAL DETAILS: The patient was counseled extensively regarding the risks, benefits, and alternatives to the procedure and after answering all questions, the patient yielded informed consent. Thepatient was thereafter brought to the operative suite and monitored anesthesia care was delivered. Preprocedural antibiotic was administered intravenously. Sterile technique was used throughout the case. All vascular access was obtained using modified Seldinger technique. 7F sheath was placed in the right femoral vein. 5 F sheath was placed in the left femoral artery (hence referred to as contralateral access side). 6F sheath was placed in the right femoral artery (hence referred to as valve access side). Next, a temporary pacing wire was placed in the right ventricle via the sheath in the femoral vein. The valve access site was the right femoral artery. A 5F pigtail catheter was placed in the LFA and positioned in the aortic arch. The pigtail catheter was subsequently advanced into the aortic root and positioned in the non coronary cusp. The 6F sheath in the access side was removed and the arteriotomy was preclosed with two Perclose Proglide devices. After preclosure, the access site was upsized directly to a F delivery sheath over aLunderquist wire. After securing the delivery sheath, a 6 F AL1 catheter was advanced to the aorticroot. Using a 0.035" straight wire, the aortic valve was crossed. Over the wire, the AL1 catheter was advanced across the valve. The straight wire was removed and exchanged for a preformed Confida wire. Next, the Blanton-Marni Commander delivery system with a mounted valve was delivered to the ascending aorta. After confirming appropriate placement across the aortic valve using aortic root angiogaphy, the #23 mm Blanton-Marni S3 Ultra valve was deployed with rapid ventricular pacing at 180 beats per minute (overinflated by one cc). Following valve deployment, the transthoracic echocardiogram and aortic root angiography revealed a well-placed and well-seated valve, with no evidence of significant aortic regurgitation. Next, the delivery catheter system was removed. The valve access artery device access site was successfully closed using the pre-deployed dual Perclose devices. A 5F SIDDHARTH catheter was then used for non-selective angiography of the right iliofemoral system revealing normal flow without significant stenosis, dissection, or contrast extravasation. The contralateral femoral sheath was removed with perclosed and the venous sheath were pulled and manual compression hemostasis applied. The patient tolerated the procedure well. Payam Amor MD MPH Interventional Cardiology Pager: [phone] 04/06/23 12:15 PM * Brooks Horta MD - 04/06/2023 8:21 AM EDTAssociated Order(s): EKG REASON FOR STUDY: pre tavr CONCLUSIONS: Atrial paced rhythm with long AV delay. Otherwise normal ECG When compared with ECG of 09-JUL-2021 12:14, same. Ventricular Rate: 62 Atrial Rate: 62 AK Interval: 504 QRS Duration: 82 QT/QTc: 390/395 ms P-R-T Sheridan: 0 : -17 : 21 degrees documented in this encounter Consult Notes * Ava Denson MSW - 04/06/2023 12:54 PM EDTAssociated Order(s): CARE MANAGEMENT CONSULT IP; CARE MANAGEMENT CONSULT IP Please refer to ancillary tab per CM involvement. Thank you for the consult request. documented in this encounter Nursing Notes * Amaya Todd RN - 04/04/2023 12:34 PM EDT NO ANESTHESIA EVAL REQUESTED PER CASE DOCUMENTATION. Pre-operative chart review completed. Amaya Todd RN documented in this encounter OR Notes * OR Surgeon - Diego Rosas MD - 04/06/2023 11:15 AM EDT OPERATIVE RECORD CRS Waiting [facility], Cardiac Recovery Suite Waiting Unit, [address] [facility] [address] Magdalena Almazan : 1935 LOCATION: CARDIAC GLASSWARE DEFECT REPAIRER DATE: 04/06/2023 PREOPERATIVE DIAGNOSIS: Aortic stenosis POSTOPERATIVE DIAGNOSIS: Aortic stenosis SURGEON: Diego Amor MD ASSISTANTS: No qualified resident was available at the time to participate in the procedure. Two attending level physicians were co-surgeons for decision- making and equipment management. ANESTHESIA: Monitored local with sedation OPERATION: CHARLIE 23 Marni 3 ultra FINDINGS: Aortic stenosis ESTIMATED BLOOD LOSS: 50 DRAINS: None FLUIDS: 500 mL Crystalloid URINE OUTPUT: Not measured SPECIMEN: None COMPLICATIONS: None CONDITION: Fair INDICATIONS AND HISTORY: An 87-year-old with severe aortic stenosis considered for a valve replacement therapy DESCRIPTION OF OPERATION: The patient was identified, and the procedure was verified. The patient was brought to the computer lab assistant and placed supine on the cath table where after an adequate level sedation prepped and draped to include both groins into a sterile operative field. 1% xylocaine without epinephrine had been infused to create anesthetized areas in both groins. Using a Seldinger technique the left common femoral artery along with the right common femoral artery and vein were cannulated. Atemporary pacing wire was passed through the left common femoral vein and with the use of fluoroscopy positioned in the right ventricle. The thresholds were tested and appreciated to be good. The patient was systemically heparinized. A pigtail catheter was passed through the left common femoral artery and positioned in the proximal ascending aorta. A Marni access sheath was placed in the right common femoral artery through which a physiologic monitoring catheter was passed and positioned across the aortic valve. Measurements were taken. The catheter was then exchanged for a Marni deploymentcatheter with a 23 valve. After an adequate level of heparin anticoagulation and with the use of rapid ventricular pacing valve was deployed without incident. Transthoracic echocardiography and cineangiography verified position and function of the valve. The catheters sheaths and guidewires were removed. The heparin was reversed with protamine. Percutaneous closure devices were used to assure hemostasis the cannulation sites were dressed sterilely. The patient was taken to the PACU in stable condition. Diego Rosas MD 04/06/2023 11:17 AM documented in this encounter Miscellaneous Notes * Ancillary Progress Note - Marvin Stroud RCIS - 04/07/2023 2:00 PM EDT [facility] [address] Ancillary Progress Note Patient Name: Magdalena Almazan Date: 04/07/2023 Patient will be escorted to Cardiac Recovery Suite. We performed a transfemoral approach for transcatheter aortic valve replacement. The right femoral artery was used for access with a 14 Mohawk sheath and a Perclose was used to close the site. The left femoral artery was also used for access with a 5 bulgarian sheath and manual pressure was held until hemostasis was achieved. There is no hematoma and no ooze from the cath site noted. Sterile Gauze and Tegaderm dressing applied to site. Distal pulses were palpated and instructions to patient were given. There were no complications during the case. Please see the MAR for the medications that were given. See Cath Procedure Log for patient vitalsduring the case. * Ancillary Progress Note - Kathia Matson RRT-FIELD SUPPORT REPRESENTATIVE - 04/07/2023 12:20 AM EDT PATIENT DRIVEN PROTOCOL - Respiratory Care Services [address] [address] Name: Magdalena Almazan Location: [facility] Date: 04/07/2023 Time: 12:20 AM Patient Driven Protocol Summary: Initial evaluation performed. This Treatment Plan and medications will be reviewed by the Primary Care Team for any contraindications. Respiratory Care Treatment Plan Pulmonary Volume Expansion Therapy: Incentive Spirometry PRN to prevent or treat alveolar consolidation and atelectasis. . Secretion Management Treatment: Flutter TherapyPRN to enhance mobilization of secretions. . The patient will be re-evaluated: No re-evaluation needed. Indications for treatment met. The Triage Level is: (Assessment Score = 0 - 5) Level 5. Triage Level Definitions: Level 1 Severe Respiratory/Airway Compromise Level 2 Moderate Respiratory/Airway Compromise or high risk for pulmonary complications Level 3 Mild Respiratory/Airway Compromise or moderate risk for pulmonary complications Level 4 Episodic Respiratory/Airway Compromise or low risk for pulmonary complications Level 5 No Respiratory/Airway Compromise Triage 1 Triage 2 Triage 3 Triage 4 Triage 5 greater than 20 16 - 20 11 - 15 6 - 10 0 - 5 Medical Record Assessment Clinical Findings Pulmonary Status: 0 - No History Surgical Status: 1 - General Surgery Chest X-Ray: 0 - Clear Assessment Score: 1 Patient Assessment Clinical Findings Respiratory Pattern: 0 - RR 12 - 20; Patient only gets breathless with strenuous exercise. Breath Sounds: 0 - Clear to auscultation Cough Effectiveness: 0 - Strong non-productive Sputum Production: 0 - No sputum production Level of Activity: 1 - Ambulatory with assist O2 needed to keep SpO2 greater than or equal to 92%: 0 - Room Air Assessment Score: 1 Total Assessment Score: 2 Breath Sounds: Inspiratory and expiratory clear bilaterally.. Cough and Sputum: An effective cough produced no sputum... CXR: FINDINGS: Catheters/tubes/devices/foreign bodies: TAVR. Dual chamber pacemaker with intact leads. Lungs and pleural spaces are clear. Cardiomediastinal silhouette is within normal limits. Atherosclerotic calcifications of the thoracic aorta. Degenerative osseous changes.. Vital Signs: Resp: 14 (04/06/232299) Pulse: 65 (04/06/231999) Temp: 36.8 C (98.2 F) (04/06/232299) BP: 125/63 (04/06/231904) SpO2: 97 % (04/06/232299) PFT: Minimal Predicted IC: 0.747 L. Inspiratory capacity: 0.75 L. Primary Service: Cardiology Med B. Admitting Diagnosis: Aortic stenosis [I35.0] S/P TAVR (transcatheter aortic valve replacement) [Z95.2] Pulmonary Diagnosis: Patient denies . Prescriptions/Home Medications/Durable Medical Equipment: Patient denies. * Communication - Steven Fields MD - 04/06/2023 5:06 PM EDT Post-Procedure Check Subjective: Pt doing well post-op Denies significant pain, numbness, tingling, bleeding, weakness. Femoral catheter site has mild oozing on the right side with no tenderness or swelling. Objective: BP 135/71 | Pulse 62 | Temp 36.5 C (97.7 F) (Tympanic) | Resp 14 | Ht 1.575 m (5' 2") | Wt 81.6kg (180 lb) | SpO2 98% | BMI 32.92 kg/m | BSA 1.89 m Heart: RRR w/o m/r/g Lungs: CTA Surgical site: dressing in place. No significant bleeding. Pulse, strength, sensation intact. A/P: [age] yo female with severe symptomatic aortic stenosis underwent TAVR with Marni lower withno complications. Continue monitor for telemetry, frequent femoral cath site monitoring Continue medical management. * Ancillary Progress Note - Ava Denson MSW - 04/06/2023 12:51 PM EDT CARE MANAGEMENT - ADULT INITIAL SCREENING [address] [address] Name: Magdalena Almazan [facility]: 04/06/[facility] Time: 12:51 PM Patient Class: Inpatient (04/06/231248) Discussed patient with the interdisciplinary care team. This Manager Motor performed a chart review and met with patient at bedside to complete admission screen and assessed needs for transition planning. The residential care facility manager role and services were explained and emotional support was provided. 30 Day Readmission Screening 30 Day Readmission Readmission within 30 days?: No (04/06/231248) Chief Complaint: No chief complaint on file. Prior Living Arrangements What was your living situation prior to admission/observation?: Independently;With Spouse () Do you have any children, pets, or other dependents that you are currently caring for?: No (04/06/231248) Living Quarters: House (04/06/231248) How many stories is the dwelling?: One Story (04/06/231248) History of falling: No (04/06/23818) Prior Level of Functioning Describe the patient's ability prior to admission/observation to perform ADLs: Performs independently (04/06/231248) Describe the patient's mobility status prior to admission: Patient ambulates independently (04/06/231248) Patient uses assistive device: No (04/06/231248) Caregiver Information Patient Contacts Name Relation Home Work Mobile RAVINDRA ALMAZAN Spouse [phone] Rain Britton Adult Child [phone] Risk Stratification/Psychosocial/Care Gaps Risk Stratification Medical and Behavioral Health Concerns Identified: Multiple comorbidities (04/06/231248) Psycho Social/Care Gaps concerns identified upon admission:: Adjustment to illness/injury () Readmission Risk Score: 7.66 (04/06/23 1200) AM-PAC Score With Stairs : 24 (04/06/23818) Comments: SW met with pt at bedside, pt was accompanied by and daughter. Pt resides with , in a one story home. Pt is independent at baseline with ambulation and ADLs, no DME. Pt had aprevious stay at [facility], and previous HH through [facility]. Pt's daughter provides transportation in community as needed. [facility]acy is [facility], PCP: Tania Mitchell DO. Prior to Admission Services Services Prior to Admission BUILDING RENTAL MANAGER Services (Services received within the last 30 days with exception, Psych within last two years): N/A (04/06/231248) [place] Dept. of Aging (PDA) Waiver Program: N/A (04/06/231248) BUILDING RENTAL MANAGER Transportation (Services received within the last 30 days): Family/Friends Personal Vehicle (04/06/231248) Outpatient Manager Motor: no, not applicable Patient/Family Expectations: likely home Anticipated Disposition Plan & Post Acute Needs Anticipated Plan Anticipated D/C disposition per abbreviated screening: Other - Describe (needs evolving) (04/06/231248) Anticipated Post-Acute Care needs identified: N/A (04/06/231248) For further screening information, please refer to the Care Management flow document. documented in this encounter Plan of Treatment Upcoming Encounters Date Type Department Care Team (Late st Contact Info) Description 04/17/2023 2:00 PM EST Office Visit [facility] [address] [facility] [address] [facility] Devlin [facility] [address] [facility] [address] 04/19/2023 10:00 AM EST Immunization/Injectio n Hematology/Oncology Treatment, [place] [address] [place] [address] Nurse, Med [address] [place] [address] 04/20/2023 10:30 AM EST Office Visit [facility] [address] [facility] [phone] Tania Mitchell [facility] [address] [facility] [address] 05/24/2023 9:40 AM EST Laboratory Laboratory, [facility] [address] [place], [place] [phone] [facility] [address] [place] [address] 05/24/2023 10:00 AM EST Office Visit Cardiology, [facility] [address] [facility] [place] [address] Ning Devlin CRNP [address] [place] [address] 05/30/2023 3:30 PM EST Cardiac Studies Cardiac Studies, [facility] [address] [place], [place] [address] 07/13/2023 11:00 AM EST Cardiac Studies Cardiology, [facility] [address] [place] [address] Flex Field [facility] [address] [place] [address] 07/18/2023 11:00 AM EST Office Visit Cardiology, [facility] [address] [place] [address] Rosa Tyler PA-C [address] [place] [address] 08/08/2023 11:15 AM EST Office [facility] [address] [place] [address] Rubin Rendon MD [address] [facility] [place] [address] 08/17/2023 9:30 AM EDT Office Visit Family Practice, [place] [address] [place] [facility] [place] [phone] Tania Mitchell DO [address] [place] [address] 10/23/2023 10:00 AM EDT Nurse Only Ancillary Department, [place] [address] [place] [place] [address] [place], Nurse [facility] [address] [place] [address] Pending Results Name Type Priority Associated Diagnoses Date /Time CBC WITH WBC DIFFERENTIAL AND ANEMIA REFLEX WORKUP Lab STAT 023 8:30 AM EDT Scheduled Orders Name Type Priority Associated Diagnoses Orde r Schedule CBC WITH WBC DIFFERENTIAL AND ANEMIA REFLEX WORKUP Lab STAT One Kiran e for 1 Occurrences starting 04/06/2023 until 04/06/2023 EKG EKG Routine Aortic stenosis One Time for 1 Occurrences starting 04/06/2023 until 04/06/2023 ANEMIA REFLEX CHEMISTRY HOLD Lab STAT Once for 1 Occur rences starting 04/06/2023 until 04/06/2023 EKG EKG STAT Post-operative state One Time for 1 Occurrences starting 04/06/2023 until 04/06/2023 EKG EKG Routine Post-operative state One Time for 1 Occurrences starting 04/07/2023 until 04/07/2023 Scheduled Procedures Name Priority Associated Diagnoses Date/Ti me ESOPHAGOGASTRODUODENOSCOPY ( EGD), FLEXIBLE, TRANSORAL, ENDOSCOPIC ULTRASOUND Recall Duodenal nodule Scheduled Referrals Name Type Priority Associated Diagnoses Orde r Schedule CARDIAC REHAB REFERRAL OP Referral Within 30 days (routine) S/P TAVR (transcatheter aortic valve replacement) Ordered: 04/06/2023 Health Maintenance Due Date Last Done Comments DTaP,Tdap,and Td Vaccines (1 - Tdap) 1954 Hepatitis B (1 of 3 - Risk 3-dose series) 1997 COVID-19 Vaccine (24 season) 2023 05/10/2022, 10/01/2021, 05/05/2021, Additional history exists HbA1c 06/10/2023 12/08/2022, 04/05, 10/13/2021, Additional history exists Diabetic Eye Exam 10/04/2023 10/03/2022, 06/21/2019 Albumin/Creatinine Ratio 10/18/2023 10/17/2022, 04/05 Depression Screening 10/18/2023 10/17/2022 Diabetic Foot Exam 10/18/2023 10/17/2022, 0 10/07/2020, 08/12/2019, Additional history exists TSH 10/18/2023 10/17/2022, 10/03, 11/26/2020, Additional history exists CKD PHOS USE SMARTSET 76566 02/11/2024 0901/2023, 10/17/2022, 04/12/2021, Additional history exists CKD HGB USE SMARTSET 33714 04/07/202404/07, 04/06/2023, 04/06/2023, Additional history exists DXA [...] this encounter Medical Devices Implanted Type Area Scooper Device Identifier Shelf Expiration Date Model / Serial / Lot Lens 21.0 Mx60 - [id number] Implanted:Qty: 1 on 03/23/2016 by Jax Theodore MD at OR [facility] [employer] : SURGICAL 10/02/2018 MX60-21.0 / [id number] / [id number] Lens 21.5 Mx60 - [id number] - [id number] Implanted:Qty: 1 on 04/20/2016 by Jax Theodore MD at OR [facility] Right: Eye [employer] : SURGICAL 09/02/2018 MX60-21.5 / [id number] / [id number] Valve Marni 3 Ultra 23mm - [id number] Implanted:Qty: 1 on 04/06/2023 by Payam Amor MD at CARDIAC LABS [facility] [employer] [id number] / / documented as of this encounter Procedures Procedure Name Priority Date/Time Associated Diagnosis Comments ECHO, COMPLETE (2D), TRANS-THORACIC Routine 04/07/2023 8:59 AM EDT S/P TAVR (transcatheter aortic valve replacement) XR CHEST 1 VIEW Routine 04/07/2023 5:53 AM EDT BASIC METABOLIC PANEL STAT 04/07/2023 5:35 AM EDT CBC STAT 04/07/2023 5:35 AM EDT MAGNESIUM STAT 04/07/2023 5:35 AM EDT XR CHEST 1 VIEW STAT 04/06/2023 1:05 PM EDT BASIC METABOLIC PANEL STAT 04/06/2023 12:34 PM EDT CBC STAT 04/06/2023 12:34 PM EDT MAGNESIUM STAT 04/06/2023 12:34 PM EDT ECHO, COMPLETE (2D), TRANS-THORACIC Routine 04/06/2023 11:36 AM EDT Status post cardiac surgery ACT, POINT OF CARE JOHANA 04/06/2023 10 :47 AM EDT ANEMIA CBC STAT 04/06/2023 8:30 AM EDT DIFFERENTIAL, AUTOMATED STAT 04/06/20 8:30 AM EDT BNP (NT-PROBNP) STAT 04/06/2023 8:30 AM EDT BASIC METABOLIC PANEL STAT 04/06/2023 8:30 AM EDT ABO/RH STAT 04/06/2023 8:30 AM EDT TYPE AND SCREEN STAT 04/06/2023 8:30 AM EDT PT INR STAT 04/06/2023 8:30 AM EDT HC ECG TRACING ONLY STAT 04/06/2023 8 :21 AM EDT S/P TAVR (transcatheter aortic valve replacement) HC COMPATIBILITY ELECTRONIC CROSSMATCH STAT 04/06/2023 7:35 AM EDT CARDIAC CATHETERIZATION REPORT Routine 04/06/2023 documented in this encounter Results * ECHO, COMPLETE (2D), TRANS-THORACIC (04/07/2023 8:59 AM EDT) 04/07/2023 8:01 AM EDT Steven Fields MD [facility] * XR CHEST 1 VIEW (04/07/2023 5:53 AM EDT) Anatomical Region Laterality Modality Chest Computed Radiogr aphy 04/07/2023 8:55 AM EDT Impressions 04/07/2023 8:52 AM EDT IMPRESSION 1. No significant change. Narrative 04/07/2023 8:52 AM EDT EXAM XR CHEST 1 VIEW-04/07/2023 5:53 am HISTORY POD #1 S/P TAVR or Mitraclip COMPARISON 04/06/2023 x-ray. TECHNIQUE Frontal chest radiograph obtained. FINDINGS Left subclavian pacer. Stable cardiomediastinal silhouette. Status post TAVR. Minimal basilar atelectasis. No pleural effusions or pneumothorax. Degenerative osseous changes. Scoliosis. Partially visualized lumbar spine hardware. Procedure Note Ye Lopez MD - 04/07/2023 EXAM XR CHEST 1 VIEW-04/07/2023 5:53 am HISTORY POD #1 S/P TAVR or Mitraclip COMPARISON 04/06/2023 x-ray. TECHNIQUE Frontal chest radiograph obtained. FINDINGS Left subclavian pacer. Stable cardiomediastinal silhouette. Status post TAVR. Minimal basilar atelectasis. No pleural effusions or pneumothorax. Degenerative osseous changes. Scoliosis. Partially visualized lumbarspine hardware. IMPRESSION IMPRESSION 1. No significant change. Steven Fields MD RADIOLOGY (RAD GENERAL) * MAGNESIUM (04/07/2023 5:35 AM EDT) Pathologist [facility] Magnesium 2.1 1.5 - 2.6 mg/dL 04/07/2023 6:25 AM EDT LABORATORY [facility] Blood Venous blood specimen / Unknown Venipuncture / Unknown 04/07/2023 5:35 AM EDT 04/07/2023 5:46 AM EDT Steven Fields MD LAB BLOOD ORDER [facility] [address] [place] [address] * (ABNORMAL) CBC (04/07/2023 5:35 AM EDT) Pathologist [facility] WBC 7.29 4.00 - 10.80 K/uL 04/07/2023 6:08 AM EDT LABORATORY [facility] RBC 3.80 3.85 - 5.15 M/uL 04/07/2023 6:08 AM EDT LABORATORY [facility] HGB 11.1(L) 12.0 - 15.3 g/dL 04/07/2023 6:08 AM EDT [facility] HCT 35.6(L) 36.0 - 45.2 % 04/07/2023 6:08 AM EDT [facility] MCV 93.7 81.5 - 97.5 fL 04/07/2023 6:08 AM EDT [facility] MCH 29.2 27.0 - 34.0 pg 04/07/2023 6:08 AM EDT [facility] MCHC 31.2 32.0 - 36.0 g/dL 04/07/2023 6:08 AM EDT LAB[facility] RDW 14.9 11.5 - 15.5 % 04/07/2023 6:08 AM EDT [facility] PLT 116(L) 140 - 400 K/uL 04/07/2023 6:08 AM EDT LAB[facility] MPV 10.5 6.6 - 11.1 fL 04/07/2023 6:08 AM EDT LAB[facility] nRBCs 0 <=0 /100 WBCs 04/07/2023 6:08 AM EDT [facility] Blood Venous blood specimen / Unknown Venipuncture / Unknown 04/07/2023 5:35 AM EDT 04/07/2023 5:46 AM EDT Steven Fields MD LAB BLOOD ORDER [facility] [address] [place] [address] * (ABNORMAL) BASIC METABOLIC PANEL (04/07/2023 5:35 AM EDT) BUN 29(H) 6 - 20 mg/dL 04/07/2023 6:25 AM EDT LAB[facility]ATORY [facility] Creatinine 1.4(H) 0.5 - 1.0 mg/dL 04/07/2023 6:25 AM EDT LABORATORY [facility] Estimated Glomerular Filtration Rate 38(L) >=60 mL/min 04/07/2023 6:25 AM EDT LAB[facility]ATORY [facility] Comment:eGFR is calculated b ased on the CKD-EPI 2020 equation Sodium 138 135 - 146 mmol/L 04/07/2023 6:25 AM EDT LAB[facility] Potassium 4.2 3.5 - 5.1 mmol/L 04/07/2023 6:25 AM EDT LAB[facility]ORY [facility] Chloride 104 98 - 107 mmol/L 04/07/2023 6:25 AM EDT [facility] CO2 23 22 - 32 mmol/L 04/07/2023 6:25 AM EDT LAB[facility] Anion Gap 11 7 - 15 mmol/L 04/07/2023 6:25 AM EDT LAB[facility]ORY [facility] Glucose 127(H) 70 - 120 mg/dL 04/07/2023 6:25 AM EDT [facility] Calcium 9.2 8.4 - 10.2 mg/dL 04/07/2023 6:25 AM EDT [facility] Blood Venous blood specimen / Unknown Venipuncture / Unknown 04/07/2023 5:35 AM EDT 04/07/2023 5:46 AM EDT Steven Fields MD LAB BLOOD ORDER [facility] [address] [place] [address] * XR CHEST 1 VIEW (04/06/2023 1:05 PM EDT) Anatomical Region Laterality Modality Chest Computed Radiogr aphy 04/06/2023 3:04 PM EDT Impressions 04/06/2023 3:01 PM EDT IMPRESSION: Expected appearance of the chest following TAVR. Narrative 04/06/2023 3:01 PM EDT EXAM: XR CHEST 1 VIEW - 04/06/2023 1:05 pm HISTORY: baseline initial xray after open heart surgery TECHNIQUE: Frontal radiograph of the chest was acquired. COMPARISON: DOTATATE PET-CT dated 01/18/2023 FINDINGS: Catheters/tubes/devices/foreign bodies: TAVR. Dual chamber pacemaker with intact leads. Lungs and pleural spaces are clear. Cardiomediastinal silhouette is within normal limits. Atherosclerotic calcifications of the thoracic aorta. Degenerative osseous changes. Procedure Note Jose Dnaiel Javier DO - 04/06/2023 EXAM: XR CHEST 1 VIEW - 04/06/2023 1:05 pm HISTORY: baseline initial xray after open heart surgery TECHNIQUE: Frontal radiograph of the chest was acquired. COMPARISON: DOTATATE PET-CT dated 01/18/2023 FINDINGS: Catheters/tubes/devices/foreign bodies: TAVR. Dual chamber pacemaker withintact leads. Lungs and pleural spaces are clear. Cardiomediastinal silhouette is within normal limits. Atheroscleroticcalcifications of the thoracic aorta. Degenerative osseous changes. IMPRESSION IMPRESSION: Expected appearance of the chest following TAVR. Steven Fields MD RADIOLOGY ([facility]) * MAGNESIUM (04/06/2023 12:34 PM EDT) Magnesium 1.9 1.5 - 2.6 mg/dL 04/06/2023 1:13 PM EDT LABORATORY GM Blood Venous blood specimen / Unknown Venipuncture / Unknown 04/06/2023 12:34 PM EDT 04/06/2023 12:43 PM EDT Steven Fields MD LAB BLOOD ORDER [facility] [address] [place] [address] * (ABNORMAL) CBC (04/06/2023 12:34 PM EDT) Pathologist [facility] WBC 7.21 4.00 - 10.80 K/uL 04/06/2023 1:43 PM EDT LAB[facility]ORY [facility] RBC 3.86 3.85 - 5.15 M/uL 04/06/2023 1:43 PM EDT LABORATORY [facility] HGB 11.4(L) 12.0 - 15.3 g/dL 04/06/2023 1:43 PM EDT LAB[facility] HCT 36.3 36.0 - 45.2 % 04/06/2023 1:43 PM EDT LAB[facility]ORY [facility] MCV 94.0 81.5 - 97.5 fL 04/06/2023 1:43 PM EDT LAB[facility] MCH 29.5 27.0 - 34.0 pg 04/06/2023 1:43 PM EDT LAB[facility] MCHC 31.4 32.0 - 36.0 g/dL 04/06/2023 1:43 PM EDT LAB[facility]ORY [facility] RDW 15.0 11.5 - 15.5 % 04/06/2023 1:43 PM EDT LABORATORY GM PLT 126(L) 140 - 400 K/uL 04/06/2023 1:43 PM EDT LAB[facility]ORY [facility] MPV 11.2 6.6 - 11.1 fL 04/06/2023 1:43 PM EDT LABORATORY [facility] nRBCs 0 <=0 /100 WBCs 04/06/2023 1:43 PM EDT LABORATORY C Blood Venous blood specimen / Unknown Venipuncture / Unknown 04/06/2023 12:34 PM EDT 04/06/2023 12:43 PM EDT Steven Fields MD LAB BLOOD ORDER [facility] [address] [place] [address] * (ABNORMAL) BASIC METABOLIC PANEL (04/06/2023 12:34 PM EDT) BUN 28(H) 6 - 20 mg/dL 04/06/2023 1:13 PM EDT LABORATORY C Creatinine 1.2(H) 0.5 - 1.0 mg/dL 04/06/2023 1:13 PM EDT LABORATORY [facility] Estimated Glomerular Filtration Rate 46(L) >=60 mL/min 04/06/2023 1:13 PM EDT LABORATORY C Comment:eGFR is calculated b ased on the CKD-EPI 2020 equation Sodium 138 135 - 146 mmol/L 04/06/2023 1:13 PM EDT LABORATORY C Potassium 4.6 3.5 - 5.1 mmol/L 04/06/2023 1:13 PM EDT LABORATORY C Chloride 105 98 - 107 mmol/L 04/06/2023 1:13 PM EDT LABORATORY C CO2 21(L) 22 - 32 mmol/L 04/06/2023 1:13 PM EDT LABORATORY C Anion Gap 12 7 - 15 mmol/L 04/06/2023 1:13 PM EDT LABORATORY C Glucose 153(H) 70 - 120 mg/dL 04/06/2023 1:13 PM EDT LAB[facility]ATORY [facility] Calcium 8.7 8.4 - 10.2 mg/dL 04/06/2023 1:13 PM EDT LABORATORY [facility] Blood Venous blood specimen / Unknown Venipuncture / Unknown 04/06/2023 12:34 PM EDT 04/06/2023 12:43 PM EDT Steven Fields MD LAB BLOOD ORDER [facility] [address] [place] [address] * ECHO, COMPLETE (2D), TRANS-THORACIC (04/06/2023 11:36 AM EDT) LEFT VENTRICULAR EJECTION FRACTION 65 % [facility] 04/06/2023 10:1 0 AM EDT Payam Amor MD ECHOCARDIOLOGY Performing Organization Address City/[facility]/ZIP Co de Phone Number [facility] * ACT, POINT OF CARE (04/06/2023 10:47 AM EDT) ACT 372 50 - 1,000 secs 04/07/2023 7:33 AM EDT [email or web address] Blood 04/06/2023 10:4 7 AM EDT 04/07/2023 7:33 AM EDT [facility]ative [facility] - 04/07/2023 7:33 AM EDT NORMAL (NON-HEPARINIZED) 74-137 SECONDS HEPARINIZED 200+ SECONDS CRITICAL GREATER THAN 1000 SECONDS Mima Sun MD LAB POINT OF CARE TEST DOCKED DEVICE UNSOLICITED RESULTS Performing Organization Address City/[facility]/ZIP Co de Phone Number [facility] [address] [place] [address] * ABO/RH (04/06/2023 8:30 AM EDT) ABO O 04/06/2023 9:52 AM EDT LABORATORY [facility] BLOOD B[facility] Rh Positive 04/06/2023 9:52 AM EDT LABORATORY [facility] B[facility] Blood Venous blood specimen / Unknown Venipuncture / Unknown 04/06/2023 8:30 AM EDT 04/06/2023 8:37 AM EDT Payam Amor MD LAB BLOOD BANK TEST ORDERABLES LABORATORY [facility] BLO[facility] B[facility] [address] [place] [address] * (ABNORMAL) DIFFERENTIAL, AUTOMATED (04/06/2023 8:30 AM EDT) WBC 7.41 4.00 - 10.80 K/uL 04/06/2023 8:46 AM EDT LAB[facility]ATORY [facility] Neutrophils % 62.0 40.0 - 75.0 % 04/06/2023 8:46 AM EDT LAB[facility]ATORY [facility] Lymphocytes % 16.7(L) 18.0 - 42.0 % 04/06/2023 8:46 AM EDT LAB[facility]ATORY [facility] Monocytes % 10.4 1.0 - 11.0 % 04/06/2023 8:46 AM EDT LAB[facility]ATORY [facility] Eosinophils % 10.1(H) 0.0 - 6.0 % 04/06/2023 8:46 AM EDT LAB[facility]ATORY [facility] Basophils % 0.5 0.0 - 2.0 % 04/06/2023 8:46 AM EDT LAB[facility]ATORY [facility] Immature Granulocytes % 0.3 0.0 - 2.0 % 04/06/2023 8:46 AM EDT LAB[facility]ATORY [facility] Absolute Neutrophils 4.59 1.80 - 7.70 K/uL 04/06/2023 8:46 AM EDT LAB[facility]ATORY [facility] Absolute Lymphocytes 1.24 1.00 - 4.80 K/ul 04/06/2023 8:46 AM EDT LAB[facility]ATORY [facility] Absolute Monocytes 0.77 0.00 - 1.10 K/uL 04/06/2023 8:46 AM EDT LABORATORY [facility] Absolute Eosinophils 0.75(H) 0.00 - 0.70 K/uL 04/06/2023 8:46 AM EDT LAB[facility]ATORY [facility] Absolute Basophils 0.04 0.00 - 0.20 K/uL 04/06/2023 8:46 AM EDT LABORATORY [facility] Absolute Immature Granulocytes 0.02 0.00 - 0.20 K/uL 04/06/2023 8:46 AM EDT LAB[facility]ATORY [facility] Blood Venous blood specimen / Unknown Venipuncture / Unknown 04/06/2023 8:30 AM EDT 04/06/2023 8:37 AM EDT Isabellakrystle Esquivel Travis MANAGER EXCHANGE LAB BLOOD MICHAEL ARELLANO [facility] Organization Address City/State/ZIP Co de Phone Number LAB[facility]ATORY [facility] [address] [place] [address] * ANEMIA CBC (04/06/2023 8:30 AM EDT) WBC 7.41 4.00 - 10.80 K/uL 04/06/2023 8:46 AM EDT LABORATORY [facility] RBC 4.38 3.85 - 5.15 M/uL 04/06/2023 8:46 AM EDT LAB[facility]ATORY [facility] HGB 12.6 12.0 - 15.3 g/dL 04/06/2023 8:46 AM EDT LABORATORY [facility] Comment: Anemia reflex testing triggers on a HGB < 12.0 for Females and HGB < 13.0 for Males in accordance with the WHO Anemia Guidelines Anemia reflex testing triggers on a HGB < 12.0 for Females and HGB < 13.0 for Males in accordance with the WHO Anemia Guidelines HCT 41.1 36.0 - 45.2 % 04/06/2023 8:46 AM EDT LAB[facility]ATORY [facility] MCV 93.8 81.5 - 97.5 fL 04/06/2023 8:46 AM EDT LAB[facility]ATORY [facility] MCH 28.8 27.0 - 34.0 pg 04/06/2023 8:46 AM EDT LAB[facility]ATORY [facility] MCHC 30.7 32.0 - 36.0 g/dL 04/06/2023 8:46 AM EDT LAB[facility]ATORY [facility] RDW 14.9 11.5 - 15.5 % 04/06/2023 8:46 AM EDT LABORATORY [facility] PLT 162 140 - 400 K/uL 04/06/2023 8:46 AM EDT LABORATORY [facility] MPV 10.4 6.6 - 11.1 fL 04/06/2023 8:46 AM EDT LABORATORY [facility] nRBCs 0 <=0 /100 WBCs 04/06/2023 8:46 AM EDT LAB[facility]ATORY [facility] Blood Venous blood specimen / Unknown Venipuncture / Unknown 04/06/2023 8:30 AM EDT 04/06/2023 8:37 AM EDT Isabella QUIROS LAB BLOOD ORDRj ARELLANO Performing Organization Address [facility] Co de Phone Number LABORATORY [facility] [address] [place] [address] * TYPE AND SCREEN (04/06/2023 8:30 AM EDT) ABO O 04/06/2023 9:36 AM EDT LABORATORY [facility] B[facility] Rh Positive 04/06/2023 9:36 AM EDT LABORATORY [facility] Red Blood Cell Antibody Screen Negative 04/06/2023 9:36 AM EDT LABORATORY [facility] Specimen Expiration Date 04/09/2023 23:59 04/06/2023 9:36 AM EDT LABORATORY [facility] Blood Venous blood specimen / Unknown Venipuncture / Unknown 04/06/2023 8:30 AM EDT 04/06/2023 8:37 AM EDT Payam Amor MD LAB BLOOD BANK TEST ORDERABLES Performing Organization Address [facility] de Phone Number LABORATORY [facility] B[facility]OD [facility] [address] [place] [address] * PT INR (04/06/2023 8:30 AM EDT) Prothrombin Time 13.3 11.6 - 15.2 seconds 04/06/2023 9:00 AM EDT LABORATORY [facility] INR 1.0 0.8 - 1.2 04/06/2023 9:00 AM EDT LABOR[facility]ORY [facility] Blood Venous blood specimen / Unknown Venipuncture / Unknown 04/06/2023 8:30 AM EDT 04/06/2023 8:37 AM EDT Narrative LABORATORY C - 04/06/2023 9:00 AM EDT Warfarin Therapy INR: 2.0-3.0 conventional anticoagulation INR: 2.5-3.5 high intensity anticoagulation Payam Amor MD LAB BLOOD ORDERABLES Performing Organization Address City/[facility]/ZIP Co de Phone Number LABORATORY [facility] [address] [place] [address] * (ABNORMAL) BASIC METABOLIC PANEL (04/06/2023 8:30 AM EDT) BUN 31(H) 6 - 20 mg/dL 04/06/2023 9:06 AM EDT LABORATORY C Creatinine 1.4(H) 0.5 - 1.0 mg/dL 04/06/2023 9:06 AM EDT LABORATORY [facility] Estimated Glomerular Filtration Rate 38(L) >=60 mL/min 04/06/2023 9:06 AM EDT LABORATORY C Comment:eGFR is calculated b ased on the CKD-EPI 2020 equation Sodium 139 135 - 146 mmol/L 04/06/2023 9:06 AM EDT LABORATORY C Potassium 4.8 3.5 - 5.1 mmol/L 04/06/2023 9:06 AM EDT LABORATORY [facility] Chloride 105 98 - 107 mmol/L 04/06/2023 9:06 AM EDT LAB[facility]ATORY [facility] CO2 23 22 - 32 mmol/L 04/06/2023 9:06 AM EDT LABORATORY C Anion Gap 11 7 - 15 mmol/L 04/06/2023 9:06 AM EDT LABORATORY C Glucose 148(H) 70 - 120 mg/dL 04/06/2023 9:06 AM EDT LABORATORY [facility] Calcium 9.6 8.4 - 10.2 mg/dL 04/06/2023 9:06 AM EDT LABORATORY C Blood Venous blood specimen / Unknown Venipuncture / Unknown 04/06/2023 8:30 AM EDT 04/06/2023 8:37 AM EDT Isabella QUIROS LAB BLOOD MICHAEL ARELLANO LABORATORY [facility] [address] [place] [address] * (ABNORMAL) BNP, NT-PRO (04/06/2023 8:30 AM EDT) BNP, NT-Pro 549(H) <300 pg/mL 04/06/2023 9:06 AM EDT LABORATORY [facility] Blood Venous blood specimen / Unknown Venipuncture / Unknown 04/06/2023 8:30 AM EDT 04/06/2023 8:37 AM EDT Narrative LAB[facility]ATORY [facility] - 04/06/2023 9:06 AM EDT Exclude Heart Failure: <300 pg/mL Diagnose Heart Failure: Age <50 yr: >450 pg/mL 50-75 yr: >900 pg/mL >75 yr: >1800 pg/mL GFR is 30-59 mL/min: >1200 pg/mL or Age-adjusted values GFR <30 mL/min: do not use, not reliable Prognostic threshold: 1000 pg/mL Isabella QUIROS LAB BLOOD ORDE EILEEN Performing Organization Address City/[facility] Co de Phone Number [facility] [address] [place] [address] * EKG (04/06/2023 8:21 AM EDT) 04/06/2023 8:21 AM EDT Narrative Procedure Note Brooks Horta MD - 04/06/2023 8:21 AM EDT REASON FOR STUDY: pre tavr CONCLUSIONS: Atrial paced rhythm with long AV delay. Otherwise normal ECG When compared with ECG of 09-JUL-2021 12:14, same. Ventricular Rate: 62 Atrial Rate: 62 AK Interval: 504 QRS Duration: 82 QT/QTc: 390/395 ms P-R-T [place]: 0 : -17 : 21 degrees Isabella QUIROS EKG [facility] * PREPARE PACKED RED BLOOD CELLS (04/06/2023 7:35 AM EDT) Unit Product Code [id number] [facility] Unit Number [id number] LABO RATORY [facility] Unit ABO O LABOR[facility]ORY [facility] Unit Rh POS LABORATORY [facility] Unit Crossmatch Compatible LABORATORY [facility] BLOOD [facility] Unit Status RE LABORATO RY [facility] Unit Blood Type OPOS LABORATORY [facility] Unit Expiration [id number] LAB[facility]ORY [facility] Unit Barcode 5100 LABORAT ORY [facility] Unit Product Code [id number] LAB[facility]ORY [facility] Unit Number [id number] LABO RATORY [facility] Unit ABO O LABOR[facility]ORY [facility] Unit Rh POS LABORATORY [facility] Unit Crossmatch Compatible LABORATORY [facility] Unit Status RE LABORATO RY [facility] Unit Blood Type OPOS LABORATORY [facility] Unit Expiration [id number] [facility] 04/06/2023 7:35 AM EDT Payam Amor MD BLD BANK PRODUCT ORD ERABLES LABORATORY [facility] [address] [place] [address] * CARDIAC CATHETERIZATION REPORT (04/06/2023) DATE OF PROCEDURE 04/06/2023 [facility] Payam Cabrales MD [facility] PROCEDURES TAVR - Replace Aortic Valve Perq No conscious sedation administered by cath/EP lab staff during this procedure. [facility] TOTAL CONTRAST VOLUME 90 ml [facility] TOTAL RADIATION 0.30 Gy [facility] COMPLICATIONS No complication None [facility] 04/06/2023 04/06/2023 12: 32 PM EDT Payam Amor MD CARD CATH [facility] documented in this encounter Visit Diagnoses Diagnosis S/P TAVR (transcatheter aortic valve replacement)- Primary Heart valve replaced by other means S/P TAVR (transcatheter aortic valve replacement) Heart valve replaced by other means Aortic stenosis Aortic valve disorders Status post cardiac surgery Post-operative state Other postprocedural status Nonrheumatic aortic (valve) stenosis Encounter for examination for normal comparison and control in clinical research program documented in this encounter Administered Medications Inactive Administered Medications - up to 3 most recent administrations Medication Order MAR Action Action Date Dose Rate Site Acetaminophen (Tylenol) tab 975 mg 975 mg, Oral, Q6H, First dose on Teresa 23 at 1245, Last dose on Mon04/11/23 at 0600, For 5 days, Maximum 4 g acetaminophen/day. Avoid in patients with severe hepatic impairment or severe active liver disease. Use for 5 days., Post-op Given 04/07/2023 4:56 AM EDT 975 mg Given 04/06/2023 11:03 PM EDT 975 mg Given 04/06/2023 6:09 PM EDT 975 mg aspirin chew tab 81 mg 81 mg, Oral, Daily(AM), First dose on Mon04/07/23 at 0900, Until Discontinued Given 04/07/2023 11:01 AM EDT 81 mg hEParin inj 5,000 Units 5,000 Units, Subcutaneous, Q8H, First dose on Mon04/07/23 at 0600, Until Discontinued, Post-op Given 04/07/2023 4:57 AM EDT 5,000 Units Abdomen Left Lower hydroCHLOROthiazide (Hydrodiuril) cap 12.5 mg 12.5 mg, Oral, Daily(AM), First dose on Mon04/07/23 at 0900, Until Discontinued Given 04/07/2023 10:00 AM EDT 12.5 mg Ioversol (Optiray 350) 74 % inj 90 mL 90 mL, Intra-Arterial, ONCE, On Mon04/06/23 at 1200, For 1 dose, Intra-Op Given By 04/06/2023 11:23 AM EDT 90 mL levothyroxine (Levoxyl) tab 100 mcg 100 mcg, Oral, [id number], First dose on Mon04/07/23 at 0630, Until Discontinued Given 04/07/2023 4:56 AM EDT 100 mcg Lisinopril (Prinivil) tab 40 mg 40 mg, Oral, Daily(AM), First dose on Mon04/07/23 at 0900, Until Discontinued Given 04/07/2023 11:01 AM EDT 40 mg magnesium sulfate 1 g in d5w 100mL LOCKED DOSE 1 g, IV Piggyback, PRN Other, Magnesium replacement, Starting on Mon04/06/23 at 1208, Until Mon04/07/23 at 1811, For 4 doses, 1. Serum creatinine must be less than 1.5 2. Current urine output must be greater than 30 mL/hr. Magnesium level 1.5 - 2.2: Give 1 gm over 1 hour x 1 dose Magnesium level less than 1.5: Give 1 gm over 1 hour x 2 doses Repeat serum magnesium level 1 hour after completion of 2nd dose, Post-op New Bag 04/06/2023 1:45 PM EDT 1 g 100 mL/hr NSS infusion Intravenous, at 25 mL/hr, CONTINUOUS, Starting on Mon04/06/23 at 0815, Until Mon04/07/23 at 0805, Pre-Op New Bag 04/06/2023 8:15 AM EDT 25 mL/hr omeprazole (PriLOSEC) cap 40 mg 40 mg, Oral, Daily(AM), First dose on Mon04/07/23 at 0900, Until Discontinued Given 04/07/2023 11:01 AM EDT 40 mg oxyCODONE-acetaminophen 5-325 mg per tab (Percocet) 1 Tablet 1 Tablet, Oral, Q6H PRN Pain, Mild, Starting on Mon04/06/23 at 2307, Until Mon04/07/23 at 1811, Maximum of 4 grams (4000 mg) of acetaminophen per day sodium chloride 0.9 % flush peripheral chuck 3 mL 3 mL, IV Push, QSHIFT, First dose on Mon04/06/23 at 1600, Until Discontinued, Do not flush if lock, PICC, or central line not in place; IV infusing or unable to flush., Post-op Given 04/07/2023 8:00 AM EDT 3 mL Given 04/06/2023 11:03 PM EDT 3 mL Given 04/06/2023 4:00 PM EDT 3 mL traMADol (Ultram) tab 50 mg 50 mg, Oral, Q12H PRN Pain, Severe, Starting on Mon04/06/23 at 1208, Until Mon04/07/23 at 1811, Post-op documented in this encounter Active and Recently Administered Medications Times are shown in EDT. Scheduled Medication Order 04/05/2023 04/06/2023 04/07/2023 Acetaminophen (Tylenol) tab 975 mg 975 mg, Oral, Q6H, First dose on Mon04/06/23 at 1245, Last dose on Mon04/11/23 at 0600, For 5 days, Maximum 4 g acetaminophen/day. Avoid in patients with severe hepatic impairment or severe active liver disease. Use for 5 days., Post-op 1245 (Not Given - Provider: Racquel Weaver RN - Reason: Refused-Notify Provider)1809 (Given - Provider: Aylin Crocker RN)2303 (Given - Provider: Simin Burton RN) 0456 (Given - Provider: Simin Burton RN)1200 (Due) aspirin chew tab 81 mg 81 mg, Oral, Daily(AM), First dose on Mon04/07/23 at 0900, Until Discontinued 1101 (Given - Provid er: Racquel Weaver RN) aspirin enteric coated tab 81 mg 81 mg, Oral, ONCE, On Mon04/06/23 at 1345, For 1 dose 1345 (Not Given - Provider: Racquel Weaver RN - Reason: Parameter(s) Not Met - Comment: Pt took this AM) atorvaSTATin (Lipitor) tab 20 mg 20 mg, Oral, Q1700, First dose on Mon04/06/23 at 1700, Until Discontinued ceFAZolin in dextrose (Ancef) ivpb 2 g (COMPLETED) 2 g, IV Piggyback, ONCE, 1 dose, On Mon04/06/23 at 0815, Pre-Op 0815 (Not Given - Provider: Racquel Weaver RN - Reason: Other-Notify Provider - Comment: given intra op)1008 (Given - Provider: Arvin Dougherty CRNA) hEParin inj 5,000 Units 5,000 Units, Subcutaneous, Q8H, First dose on Mon04/07/23 at 0600, Until Discontinued, Post-op 0457 (Given - Provid er: Simin Burton RN)1400 (Due) hydroCHLOROthiazide (Hydrodiuril) cap 12.5 mg 12.5 mg, Oral, Daily(AM), First dose on Mon04/07/23 at 0900, Until Discontinued 1000 (Given - Provid er: Racquel Weaver RN) Ioversol (Optiray 350) 74 % inj 90 mL (COMPLETED) 90 mL, Intra-Arterial, ONCE, On Mon04/06/23 at 1200, For 1 dose, Intra-Op 1123 (Given By - Provider: Benny Tirado RN - Comment: ) levothyroxine (Levoxyl) tab 100 mcg 100 mcg, Oral, [id number], First dose on Mon04/07/23 at 0630, Until Discontinued 0456 (Given - Provid er: Simin Burton RN) Lisinopril (Prinivil) tab 40 mg 40 mg, Oral, Daily(AM), First dose on Mon04/07/23 at 0900, Until Discontinued 1101 (Given - Provid er: Racquel Weaver RN) omeprazole (PriLOSEC) cap 40 mg 40 mg, Oral, Daily(AM), First dose on Mon04/07/23 at 0900, Until Discontinued 1101 (Given - Provid er: Racquel Weaver RN) sodium chloride 0.9 % flush peripheral chuck 3 mL 3 mL, IV Push, QSHIFT, First dose on Teresa 04/06/23 at 1600, Until Discontinued, Do not flush if lock, PICC, or central line not in place; IV infusing or unable to flush., Post-op 1600 (Given - Provider: Racquel Weaver RN)2303 (Given - Provider: Simin Burton RN) 0800 (Given - Provider: Racquel Weaver RN) Continuous Medication Order 04/05/2023 04/06/2023 04/07/2023 NSS infusion (CANCELED) Intravenous, at 25 mL/hr, CONTINUOUS, Starting on Teresa 04/06/23 at 0815, Until Mon04/07/23 at 0805, Pre-Op 0815 (New Bag - Provider: Racquel Weaver RN) 0805 (Due: Stopped - Provider: Rosibel Lott DO) PRN Medication Order 04/05/2023 04/06/2023 04/07/2023 magnesium sulfate 1 g in d5w 100mL LOCKED DOSE 1 g, IV Piggyback, PRN Other, Magnesium replacement, Starting on Teresa 04/06/23 at 1208, Until Mon04/07/23 at 1811, For 4 doses, 1. Serum creatinine must be less than 1.5 2. Current urine output must be greater than 30 mL/hr. Magnesium level 1.5 - 2.2: Give 1 gm over 1 hour x 1 dose Magnesium level less than 1.5: Give 1 gm over 1 hour x 2 doses Repeat serum magnesium level 1 hour after completion of 2nd dose, Post-op 1345 (New Bag - Provider: Racquel Weaver RN) oxyCODONE-acetaminophen 5-325 mg per tab (Percocet) 1 Tablet 1 Tablet, Oral, Q6H PRN Pain, Mild, Starting on Teresa 04/06/23 at 2307, Until Mon04/07/23 at 1811, Maximum of 4 grams (4000 mg) of acetaminophen per day traMADol (Ultram) tab 50 mg 50 mg, Oral, Q12H PRN Pain, Severe, Starting on Teresa 04/06/23 at 1208, Until Mon04/07/23 at 1811, Post-op documented in this encounter Advance Directives Latest [...] and were consensually agreed upon. Care Teams Shuttle Fixer Relationship Specialty Start Date End Date Tania Mitchell DO [address] [place] [id number] PCP - General Family Medicine 07/10/18 documented as of this encounter
--- OUTSIDE RECORDS SUMMARY | 2023-06-11 13:23 | External Medical Summary ---
Author Name Unknown Address Unknown Organization K01:[facility] [address] [facility] [address] [place] [address] Laboratory Report Ordering Provider Test Date Status AKBAR BAKER 04/07/2023 05:35:00 Final Observation Date Value Abnormality Reference (Units ) Status BUN 04/07/2023 05:35:00 29 Above high normal 6-20 (mg/dL) Final Creatinine 04/07/2023 05:35:00 1.4 Above high normal 0.5-1.0 (mg/dL) Final Glomerular filtration rate/1.73 sq M.predicted [Volume Rate/Area] in Serum, Plasma or Blood by Creatinine-based formula (CKD-EPI) 04/07/2023 05:35:00 38 Below low normal >=60 (mL/min) Final eGFR is calculated based on the CKD-EPI 2020 equation SODIUM 04/07/2023 05:35:00 138 135-146 (m mol/L) Final Potassium 04/07/2023 05:35:00 4.2 3.5-5.1 (m mol/L) Final Cl 04/07/2023 05:35:00 104 98-107 (mm ol/L) Final CO2 04/07/2023 05:35:00 23 22-32 (mmo l/L) Final Anion gap 04/07/2023 05:35:00 11 7-15 (mmol /L) Final Glucose 04/07/2023 05:35:00 127 Above high normal 70 -120 (mg/dL) Final Calcium 04/07/2023 05:35:00 9.2 8.4-10.2 ( mg/dL) Final Performing Location [facility] [address] [place] [address]
--- OUTSIDE RECORDS SUMMARY | 2023-06-11 13:23 | External Medical Summary | Summary of Care ---
Author Name Unknown Organization [facility] Address [address] [place] [address] Phone [phone] Care Team Providers Care Shoe Repairer Helper Name Role Phone Chelsey Mitchell DO Primary Care Provider [phone] Reason for Visit * Auth/Cert Specialty Diagnoses / Procedures Referred By Josef t Referred To Contact Diagnoses Aortic stenosis Aortic stenosis [I35.0] Procedures REPLACE AORTIC VALVE, PERCUTANEOUS FEMORAL REPLACE AORTIC VALVE, PERCUTANEOUS FEMORAL REPLACE AORTIC VALVE, PERCUTANEOUS FEMORAL REPLACE AORTIC VALVE, PERCUTANEOUS FEMORAL Referral ID Status Reason Start Date Expiration Date Visits Re quested Visits Authorized [id number] Encounter Details Date Type Department Care Team (Latest Contact Info) Description 04/06/2023 11:36 AM EDT - 04/06/2023 11:59 PM EDT Hospital Encounter Cardiac Studies [place] [address] [place] [address] Discharge Disposition: Home - Self Care Allergies Active Allergy Reactions Criticality Noted Date Comments Bee Venom Abdominal pain,Edema face/lips/tongue High 02/17/2011 Sulfa Antibiotics Rash Medium 12/26/2007 documented as of this encounter (statuses as of 04/07/2023) Medications Medication Sig Dispensed Refills Start Date End Date Status ASPIRIN 81 MG PO TABS one a day 0 Suspended ONETOUCH ULTRASOFT LANCETS MISC Use one time a day in the morning. E11.9 1 Box Dosing Unit 11 07/19/ 9 Suspended Additional Information Vitamin D (Cholecalciferol) 10 MCG (400 UNIT) Oral Tablet Chewable Take 1 Tablet by mouth in the morning. 0 Suspended Vitamin C 100 MG Oral Tablet Chewable Take 1 Tablet by mouth in the morning. 0 Suspended Adult Gummy Oral Tablet Chewable Take 2 Each by mouth daily. 0 Suspended Acetaminophen 500 MG Oral Tablet (Tylenol) Take 1 Tablet by mouth every 6 hours as needed. 0 Suspended Meclizine HCl 12.5 MG Oral Tablet (Antivert)Indicatio ns:Vertigo TAKE ONE TABLET BY MOUTH THREE TIMES DAILY if needed for dizziness 30 Tablet 1 2 04/07/20 23 Discontinued Metoprolol Tartrate 25 MG Oral Tablet (Lopressor)Indicati ons:HTN, goal below 130/80,Tachy-bryn syndrome (HCC) TAKE 1 TABLET BY MOUTH TWICE DAILY 180 Tablet 3 3 Suspended Additional Information Tradjenta 5 MG Oral Tablet (linaGLIPtin)Indica tions:Type 2 diabetes mellitus with stage 3b chronic kidney disease, with long-term current use of insulin (HCC) TAKE 1 TABLET BY MOUTH ONCE DAILY 90 Tablet 2 3 Suspended Additional Information hydroCHLOROthiazide 25 MG Oral Tablet (Hydrodiuril) TAKE HALF TABLET BY MOUTH DAILY 45 Tablet 2 3 Suspended Additional Information Levothyroxine Sodium 100 MCG Oral Tablet (Levoxyl)Indication s:Hypothyroidism take one tablet by mouth daily at least 30 minutes before breakfast and other medications 90 Tablet 1 3 Suspended Additional Information Lisinopril 40 MG Oral TabletIndications:H TN, goal below 130/80 TAKE 1 TABLET BY MOUTH ONCE DAILY 90 Tablet 1 3 Suspended Additional Information Omeprazole 40 MG Oral Capsule Delayed Release (PriLOSEC)Indicatio ns:Hx of gastric ulcer TAKE 1 CAPSULE BY MOUTH ONCE DAILY 1 hour before the first meal of the day 90 Capsule 1 3 Suspended Additional Information OneTouch Verio In Vitro Strip (Glucose Blood) use as directed to test blood sugar once a day 100 Strip 2 3 Suspended Additional Information HYDROcodone-Acetami nophen 5-325 MG Oral TabletIndications:G eneralized OA,Osteoarthritis of multiple joints, unspecified osteoarthritis type Take 1 Tablet by mouth every 6 hours as needed for Pain, Mild. 30 Tablet 0 3 Suspended Additional Information Atorvastatin Calcium 20 MG Oral Tablet (Lipitor)Indication s:Dyslipidemia, goal LDL below 100 TAKE 1 TABLET BY MOUTH ONCE DAILY 90 Tablet 1 3 Suspended Additional Information documented as of this encounter (statuses as of 04/07/2023) Active Problems Problem Noted Date Diagnosed Date Diabetic peripheral neuropathy 12/08/2022 Aortic valve stenosis, [...] as of this encounter (statuses as of 04/07/2023) Resolved Problems Problem Noted Date Diagnosed Date [...] as of this encounter (statuses as of 04/07/2023) Immunizations Name Administration Dates Next Due COVID-19 mRNA, LNP-s, No Pre serve, 2-Dose Series (Wave [employer]band) 10/01/2021,05/05/2021,09/10/2020,08/03 Covid-19, Mrna, Lnp-s, Pf, B ivalent, 30 Mcg, IM, 12 yrs and above (Wave Broadband) 05/10/2022 Pneumococcal Conjugate Vacc, 13 Valent (Prevnar) [...] on file documented as of this encounter Plan of Treatment Upcoming Encounters Date Type Department Care Team (Late st Contact Info) Description 04/17/2023 2:00 PM EST Office Visit Cardiology, [facility] [address] [place] [address] Ning Devlin CRNP [address] [place] [address] 04/19/2023 10:00 AM EST Immunization/Injectio n Hematology/Oncology Treatment, [place] [address] [place] [address] Nurse, Med [address] [place] [address] 05/24/2023 9:40 AM EST Laboratory Laboratory, [facility] [id number] [facility] [place] [address] 05/24/2023 10:00 AM EST Office Visit Cardiology, [facility] [place] [address] Ning Devlin [facility] [address] 05/30/2023 3:30 PM EST Cardiac Studies Card[facility] Studies, [facility] [place] [address] 07/13/2023 11:00 AM EST Cardiac Studies Cardiology, [facility] [place] [address] [facility] [place] [address] 07/18/2023 11:00 AM EST Office Visit Cardiology, [facility] 132 [facility] [place] [address] Rosa Tyler PA-C [facility] [place] [address] 08/08/2023 11:15 AM EST Office Visit Hematology/Oncology Geetha Weinstein [place] [address] [place] [address] Rubin Rendon MD [address] [facility] [place] [address] 08/17/2023 9:30 AM EDT Office Visit Family [facility], [place] [address] [facility] [place] [address] Chelsey Mitchell, [address] [place] [facility] [place] [address] 10/23/2023 10:00 AM EDT Nurse Only Ancillary Department, [place] [address] [place] [facility] [place] [address] [place], Nurse Annual Wellness [address] [place] [address] Scheduled Procedures Name Priority Associated Diagnoses Date/Ti [...] Additional history exists CKD PHOS USE SMARTSET 69857 02/11/2024 09/0 01/2023, 10/17/2022, 04/12/2021, Additional history exists CKD HGB USE SMARTSET 23048 04/07/202404/07, 04/06/2023, 04/06/2023, Additional history exists DXA [...] this encounter Medical Devices Implanted Type Area Teaseler Device Identifier Shelf Expiration Date Model / Serial / Lot Lens 21.0 Mx60 - [id number] Implanted:Qty: 1 on 03/23/2016 by Jax Theodore MD at OR [facility] [employer] : SURGICAL 10/02/2018 MX60-21.0 / [id number] / [id number] Lens 21.5 Mx60 - [id number] - [id number] Implanted:Qty: 1 on 04/20/2016 by Jax Theodore MD at OR [facility] Right: Eye [employer] : SURGICAL 09/02/2018 MX60-21.5 / [id number] / [id number] Valve Marni 3 Ultra 23mm - [id number] Implanted:Qty: 1 on 04/06/2023 by Payam Amor MD at [facility] [place] [id number] / / documented as of this encounter Procedures Procedure Name Priority Date/Time Associated Diagnosis Comments ECHO, COMPLETE (2D), TRANS-THORACIC Routine 04/06/2023 11:36 AM EDT Status post cardiac surgery documented in this encounter Results * ECHO, COMPLETE (2D), TRANS-THORACIC (04/06/2023 11:36 AM EDT) LEFT VENTRICULAR EJECTION FRACTION 65 % [facility] 04/06/2023 10:1 0 AM EDT Payam Amor MD [facility]ARDIOLOGY [facility] C[facility] documented in this encounter Advance Directives Latest Code Status on File Code Status Date Activated Date Inactivated Comments Full Code 04/06/2023 12:10 PM This orde r reflects the patients wishes and were consensually [...] and were consensually agreed upon. Care Teams Shoe Repairer Helper Relationship Specialty Start Date End Date Chelsey Mitchell DO [address] [place] [address] PCP - General Family Medicine 07/10/18 documented as of this encounter
--- OUTSIDE RECORDS SUMMARY | 2023-06-11 13:23 | External Medical Summary ---
Author Name Unknown Address Unknown Organization K01:[facility] - [facility] [address] [place] [address] Laboratory Report Ordering Provider Test Date Status AKBAR BAKER 04/06/2023 12:34:00 Final Observation Date Value Abnormality Reference (Units ) Status WBC, Total 04/06/2023 12:34:00 7.21 4.00-10.80 (K/uL) Final RBC 04/06/2023 12:34:00 3.86 3.85-5.15 (M/uL) Final Hemoglobin 04/06/2023 12:34:00 11.4 Below low normal 12.0-15.3 (g/dL) Final HCT 04/06/2023 12:34:00 36.3 36.0-45.2 (%) Final MCV 04/06/2023 12:34:00 94.0 81.5-97.5 (fL) Final MCH 04/06/2023 12:34:00 29.5 27.0-34.0 (pg) Final MCHC 04/06/2023 12:34:00 31.4 32.0-36.0 (g/dL) Final RDW 04/06/2023 12:34:00 15.0 11.5-15.5 (%) Final Platelets 04/06/2023 12:34:00 126 Below low normal 140-400 (K/uL) Final MPV 04/06/2023 12:34:00 11.2 6.6-11.1 (fL) Final Nucleated erythrocytes/100 leukocytes [Ratio] in Blood by Automated count 04/06/2023 12:34:00 0 <=0 (/100 WBCs) Final Performing Location [facility] - [address] [place] [address]
--- OUTSIDE RECORDS SUMMARY | 2023-06-11 13:23 | External Medical Summary | Summary of Care ---
Author Name Unknown Organization [facility] Address [address] [place] [address] Phone [phone] Care Team Providers Care Tafe Teacher Name Role Phone Tania Orlando DO Primary Care Provider Reason for Visit * Reason Onset Date Comments Medication Refill 03/30/2023 Encounter Details Date Type Department Care Team (Late st Contact Info) Description 03/30/2023 Refill [facility] [address] [facility] [place] [address] Tania Orlando DO [address] [place] [address] Generalized OA; Osteoarthritis of multiple joints, unspecified osteoarthritis type Allergies Active Allergy Reactions Criticality Noted Date Comments Bee Venom Abdominal pain,Edema face/lips/tongue High 02/17/2011 Sulfa Antibiotics Rash Medium 12/26/2007 documented as of this encounter (statuses as of 04/03/2023) Medications Medication Sig Dispensed Refills Start Date [...] every 6 hours as needed. 0 Active Meclizine HCl 12.5 MG Oral Tablet (Antivert)Indicati ons:Vertigo TAKE ONE TABLET BY MOUTH THREE TIMES DAILY if needed for dizziness 30 Tablet 1 2 Active Additional Information Patient not taking.Reported on 03/06/2023 Metoprolol Tartrate 25 MG Oral Tablet (Lopressor)Indicat ions:HTN, goal below 130/80,Tachy-bryn syndrome (HCC) TAKE 1 TABLET BY MOUTH TWICE DAILY 180 Tablet 3 3 Active Tradjenta 5 MG Oral Tablet (linaGLIPtin)Indic ations:Type 2 diabetes mellitus with stage 3b chronic kidney disease, with long-term current use of insulin (HCC) TAKE 1 TABLET BY MOUTH ONCE DAILY 90 Tablet 2 3 Active hydroCHLOROthiazid e 25 MG Oral [...] the day 90 Capsule 1 3 Active Lotus Tissue Repair Verio In Vitro Strip (Glucose Blood) use as directed to test blood sugar once a day 100 Strip 2 3 Active HYDROcodone-Acetam inophen 5-325 MG Oral [...] as of this encounter (statuses as of 04/03/2023) Active Problems Problem Noted Date Diagnosed Date [...] as of this encounter (statuses as of 04/03/2023) Resolved Problems Problem Noted Date Diagnosed Date [...] as of this encounter (statuses as of 04/03/2023) Immunizations Name Administration Dates Next Due COVID-19 mRNA, LNP-s, No Pre serve, 2-Dose Series (Well[employer]) 10/01/2021,05/05/2021,09/10/2020,08/03 Covid-19, Mrna, Lnp-s, Pf, B ivalent, [...] Telephone Encounter - Tania Orlando DO - 04/03/2023 1:44 PM EDTSigned Prescriptions: Disp Refills HYDROcodone-Acetaminophen 5-325 MG Oral Ta*30 Tab*0 Sig: Take 1 Tablet by mouth every 6 hours as needed for Pain, Mild. Authorizing Provider: TANIA ORLANDO * Telephone Encounter - Yareli Barrow [facility] - 03/31/2023 8:56 AM EDTPending Prescriptions: Disp Refills HYDROcodone-Acetaminophen 5-325 MG Oral Ta*30 Tab*0 Sig: Take 1 Tablet by mouth every 6 hours as needed for Pain, Mild. * Telephone Encounter - Yareli Barrow [facility] - 03/31/2023 8:56 AM EDT I have reviewed the patients controlled substance dispensing history in the Prescription Drug Monitoring Program in compliance with the [facility] regulations before prescribing a controlled substance. PDMP checked on 03/31/2023. Pending Prescriptions: Disp Refills HYDROcodone-Acetaminophen 5-325 MG Oral T*30 Tab*0 Sig: Take 1 Tablet by mouth every 6 hours as needed for Pain, Mild. Last Visit: 02/16/2023 (in office), Visit date not found (telemedicine) Next Visit: 08/17/2023 Date medication was last filled: 02/24/23 Date medication is due for refill: Pharmacy: [id number] Is this request for a controlled substance? [...] [address] 20 pH [place]RE 4.9 Please approve if appropriate. Thank You, Yareli Barrow [facility] Clinical Pharmacist [facility] Pharm[facility] Services ([facility]PS) (formerly Telepharmacy) [phone] 03/31/2023, 8:56 AM * Telephone Encounter - Christina Perez CPhT - 03/30/2023 12:56 PM EDT Did you pend patient's preferred pharmacy and medication before forwarding?yes Pharmacy: [id number] [facility] [place] Pending Prescriptions: Disp Refills HYDROcodone-Acetaminophen 5-325 MG Oral T*30 Tab*0 Sig: Take 1 Tablet by mouth every 6 hours as needed for Pain, Mild. Last Visit: 02/16/2023 (in office), Visit date not found (telemedicine) Next Visit: 08/17/2023 If no future appointments scheduled, and last appointment is greater than a year ago, please schedule patient for a follow-up appointment Last date the medication was ordered: 02/24/2023 Is this request for a controlled substance?Yes, What was the last refill date 02/24/2023 w/ [id number] and dosage 5-325 and Urine Drug Screen was completed Urine [...] [address] 20 pH ANDRE 4.9 Patient Phone Numbers Labs: Lab Results Component Value Date/Time CREAT 1.6 (H) 03/06/2023 03:17 PM CREAT 1.5 (H) 04/09/2020 11:08 AM POTASSIUM 4.8 02/10/2023 11:00 AM POTASSIUM 4.9 04/09/2020 11:08 AM TSH 1.57 10/17/2022 11:43 AM TSH 0.76 04/09/2020 11:08 AM LDLCALC 54 01/21/2021 09:34 AM LDLCALC 60 08/05/2019 10:23 AM LDLDIRECT 65 08/15/2022 12:56 PM LDLDIRECT NOT APPLICABLE 08/05/2019 10:23 AM ALT 16 12/08/2022 09:49 AM ALT 21 08/05/2019 10:23 AM HGBA1C 7.4 (H) 12/08/2022 09:49 AM HGBA1C 7.5 (H) 04/09/2020 11:08 AM documented in this encounter Plan of Treatment Upcoming Encounters Date Type Department Care Team (Latest Contact Info) Description 04/06/2023 8:00 AM EDT Hospital Encounter [facility], Cardiac Recovery Suite Waiting Unit, [address] [place] [address] Payam Amor MD [address] [place] [address] 04/06/2023 8:00 AM EDT - 04/06/2023 9:10 AM EDT Surgery [facility] Wait[facility], Cardiac Recovery Suite Waiting Unit, [address] [place] [address] Payam Amor MD [address] [place] [address] REPLACE AORTIC VALVE, PERCUTANEOUS FEMORAL 04/06/2023 8:00 AM EDT Office Visit Cardiology [facility], [place] [address] [place] [address] [place], Cardiac Recovery [facility] [address] [place], [place] [address] 04/19/2023 10:00 AM EST Immunization/Injec tion Hematology/Oncolog y Treatment, [place] [address] [place], [place] [address] Nurse, Med [address] [facility] [place] [address] 07/13/2023 11:00 AM EST Cardiac Studies [facility]iology, [facility] [address] [facility] [address] 07/18/2023 11:00 AM EST Office Visit Cardiology, [facility] [address] [facility] [place] [address] Rosa Tyler [facility]C [facility] [address] 08/08/2023 11:15 AM EST Office Visit Hematology/Oncolog y [facility] [address] [place], [place] [address] Rubin Rnedon MD [address] [place], [place] [address] 08/17/2023 9:30 AM EDT Office Visit Family [facility], [place] [address] [facility] [id number] Tania Orlando, [address] [place] [address] 10/23/2023 10:00 AM EDT Nurse Only Ancillary Department, [place] [address] [facility] [address] [place], Nurse Annual Wellness [address] [place] [address] Scheduled Procedures Name Priority Associated Diagnoses Date/Ti me REPLACE AORTIC VALVE, PERCUT ANEOUS FEMORAL Aortic stenosis 04/06/2023 8:00 AM EDT REPLACE AORTIC VALVE, PERCUT ANEOUS FEMORAL Aortic stenosis 04/06/2023 8:00 AM EDT ESOPHAGOGASTRODUODENOSCOPY ( EGD), FLEXIBLE, TRANSORAL, ENDOSCOPIC ULTRASOUND [...] 10/17/2022, 10/03, 11/26/2020, Additional history exists CKD HGB USE SMARTSET 78949 02/11/202402/10, 12/08/2022, 12/08/2022, Additional history exists CKD PHOS USE SMARTSET 29631 02/11/2024 09/0 01/2023, 10/17/2022, 04/12/2021, Additional history exists DXA Scan 11/22/2029 11/22/2022, [...] this encounter Medical Devices Implanted Type Area Project Control Manager Device Identifier Shelf Expiration Date Model / Serial / Lot Lens 21.0 Mx60 - [id number] Implanted:Qty: 1 on 03/23/2016 by Jax Theodore MD at OR [facility] [employer] : SURGICAL 10/02/2018 MX60-21.0 / [id number] / [id number] Lens 21.5 Mx60 - [id number] - [id number] Implanted:Qty: 1 on 04/20/2016 by Jax Theodore MD at OR [facility] Right: Eye [employer] : SURGICAL 09/02/2018 MX60-21.5 / [id number] / [id number] documented as of this encounter Visit Diagnoses Diagnosis Generalized OA Generalized osteoarthrosis, unspecified site Osteoarthritis of multiple joints, unspecified osteoarthritis type Aortic stenosis Aortic valve disorders documented in this encounter Advance Directives Latest Code Status on File Code Status Date Activated Date Inactivated Comments Full Code 04/20/2016 9:47 AM 04/20/2016 2:37 PM Thi s order reflects the patients wishes and were consensually agreed upon. Code Status History Code Status Date Activated Date Inactivated Comments Full Code 04/20/2016 7:33 AM 04/20/2016 9:47 AM Thi s order reflects the patients wishes and were consensually agreed upon. Full Code 03/23/2016 10:11 AM 03/23/2016 2:35 PM Th is order reflects the patients wishes and were consensually agreed upon. Full Code 03/23/2016 8:20 AM 03/23/2016 10:11 AM Th is order reflects the patients wishes and were consensually agreed upon. Care Teams Tafe Teacher Relationship Specialty Start Date End Date Tania Orlando DO [address] [place] [address] PCP - General Family Medicine 07/10/18 documented as of this encounter
--- OUTSIDE RECORDS SUMMARY | 2023-06-11 13:23 | External Medical Summary ---
Author Name Unknown Address Unknown Organization K01:LABORATORY [facility] - [address] [facility] [place] [address] Laboratory Report Ordering Provider Test Date Status ENRIQUE LAND 04/06/2023 08:30:50 Final Observation Date Value Abnormality Reference (Units ) Status SYNC LEUKOCYTES IN BLOOD BY AUTOMATED COUNT 04/06/2023 08:30:50 7.41 4.00-10.80 (K/uL) Final Segs 04/06/2023 08:30:50 62.0 40.0-75.0 (%) Final Lymphs % 04/06/2023 08:30:50 16.7 Below low normal 18.0-42.0 (%) Final Monos 04/06/2023 08:30:50 10.4 1.0-11.0 (%) Final Eosinophils 04/06/2023 08:30:50 10.1 Above high normal 0.0-6.0 (%) Final Basos 04/06/2023 08:30:50 0.5 0.0-2.0 (%) Final Immature Granulocyte, Percent 04/06/2023 08:30:50 0.3 0.0-2.0 (%) Final Absolute Segs 04/06/2023 08:30:50 4.59 1.80-7.70 (K/uL) Final Lymphs, absolute 04/06/2023 08:30:50 1.24 1.00-4.80 (K/ul) Final Monos, Abs 04/06/2023 08:30:50 0.77 0.00-1.10 (K/uL) Final Eos, Abs 04/06/2023 08:30:50 0.75 Above high normal 0.00-0.70 (K/uL) Final Basos, Abs 04/06/2023 08:30:50 0.04 0.00-0.20 (K/uL) Final Immature Granulocytes, Number 04/06/2023 08:30:50 0.02 0.00-0.20 (K/uL) Final Performing Location LABORATORY [facility] - [facility] [address] [facility] [id number]
--- OUTSIDE RECORDS SUMMARY | 2023-06-11 13:23 | External Medical Summary | Summary of Care ---
Author Name Unknown Organization [facility] Address [address] [place] [address] Phone [phone] Care Team Providers Care Glove Cleaner Name Role Phone Chelsey Mitchell DO Primary Care Provider [phone] Reason for Visit * Reason Onset Date Comments Hospital Follow-Up 04/10/2023 [facility] Encounter Details Date Type Department Care Team (Late st Contact Info) Description 04/10/2023 Telephone Ancillary Department, [address] [address] Bianca Ansari RN Hospital Follow-Up ([facility]) Allergies Active Allergy Reactions Criticality Noted Date Comments Bee Venom Abdominal pain,Edema face/lips/tongue High 02/17/2011 Sulfa Antibiotics Rash Medium 12/26/2007 documented as of this encounter (statuses as of 04/10/2023) Medications Medication Sig Dispensed Refills Start Date [...] 1 10/17/2022 Active Lisinopril 40 MG Oral TabletIndications:H TN, [...] a day 100 Strip 2 02/01/2023 Active HYDROcodone-Acetami nophen 5-325 MG Oral TabletIndications:G eneralized OA,Osteoarthritis of multiple joints, unspecified osteoarthritis type Take 1 Tablet by mouth every 6 hours as needed for Pain, Mild. 30 Tablet 0 04/03/2023 Active Atorvastatin Calcium 20 MG Oral Tablet (Lipitor)Indication s:Dyslipidemia, goal LDL below 100 TAKE 1 TABLET BY MOUTH ONCE DAILY 90 Tablet 1 04/03/2023 Active Tradjenta 5 MG Oral Tablet (linaGLIPtin)Indica tions:Type 2 diabetes mellitus with stage 3b chronic kidney disease, with long-term current use of insulin (HCC) TAKE 1 TABLET BY MOUTH ONCE DAILY 90 Tablet 2 09/20/2022 04/10/20 23 Discontinu ed(Medicat ion List Clean Up) documented as of this encounter (statuses as of 04/10/2023) Active Problems Problem Noted Date Diagnosed Date [...] as of this encounter (statuses as of 04/10/2023) Resolved Problems Problem Noted Date Diagnosed Date [...] as of this encounter (statuses as of 04/10/2023) Immunizations Name Administration Dates Next Due COVID-19 mRNA, LNP-s, No Pre serve, 2-Dose Series ([employer]) 10/01/2021,05/05/2021,09/10/2020,08/03 Covid-19, Mrna, Lnp-s, Pf, B ivalent, [...] encounter Miscellaneous Notes * Telephone Encounter - Bianca Ansari RN - 04/10/2023 3:03 PM EST Transitions of Care Note Reason for Referral:Recent Admission Phone visit for follow up: rajat [place] [facility] 04.06.23 Discharged to: home, Date: 04.07.23 Diagnosis driving hospitalization: S/P TAVR (transcatheter aortic valve replacement) Operations & Procedures: TAVR (04/06/2023) Source/Contact: Patient SUBJECTIVE Consent: Verbal consent for review of hospital discharge: Yes REVIEW OF SYSTEMS Patient/Other Reports: Current patient/caregiver problems or concerns: none CV: Denies problems Pulmonary: Denies problems Chills/Sweats/Fever:Denies chills/sweats Denies fever Appetite:Denies problems such as nausea, vomiting, burning, decreased appetite Current diet: reg Bowel: denies problems Bladder: denies problems Wound (If applicable): Site-doing well, bruised, no redness or drainage noted Pain:Denies Sleep:Denies problems FUNCTIONAL STATUS: ADL'S: Needs Assistance With:N/A as pt is independent IADL'S: Needs Assistance With:N/A as pt is independent Cognitive and Mental Health: denies problems, alert and oriented x 3, and able to communicate, understand instructions, process information. MEDICATION RECONCILIATION Medications: Reports all medications taken as prescribed. Meclizine - this was discontinued as it was reported as not taking OBJECTIVE ASSESSMENT Medication Risk Assessment: No risks identified Did patient fail outpatient treatment? No Discharge instructions available for review? Yes PLAN Symptom Monitoring Interventions:Member/caregiver education - signs and symptoms to contact PrimaryCare (DO NOT DELETE-Three dos santos symptoms patient is to report to PCP) 1. Chest pain 2. sob 3. Signs of infection at incision [place] [facility] of Care interventions/Action Plan: 10 day hospital follow up scheduled with pcp Educated on role of RAJAT completed with patient/caregiver. Educated patient/caregiver on patient right to have input on RAJAT plan of care. Verification of Home Health/DME if indicated: NO Identified Care Gaps: Yes Care Gaps closed this call: Transition of Care follow-up communication Re-evaluation of Plan of Care and progress towards goals achievement: Patient education this visit: Verbal, patient not to over do it, she feels great and has been moving all day. Both daughters havebeen there to check on her too. Plan to follow-up as previously scheduled, instructed to call Primary Care Provider with change in symptoms or as needed before next follow-up, verbalizes understanding and agrees with plan. Bianca Ansari RN documented in this encounter Plan of Treatment Upcoming Encounters Date Type Department Care Team (Late st Contact Info) Description 04/17/2023 2:00 PM EST Office Visit Cardiology, [facility] [address] [facility] [place] [address] Ning Devlin CRNP 132 [facility] [place] [address] 04/19/2023 10:00 AM EST Immunization/Injectio n Hematology/Oncology Treatment, [place] [address] [place] [address] Nurse, Med 4 [address] [place] [address] 04/20/2023 10:30 AM EST Office Visit [address] [phone] Chelsey Mitchell, [address] [place] [address] 05/24/2023 9:40 AM EST Laboratory Laboratory, [facility] [address] [facility] [place] [address] Weston Loza 132 [facility] [place] [address] 05/24/2023 10:00 AM EST Office Visit Cardiology [facility] [address] [facility] [place] [address] Ning Devlin CRNP [address] [place] [address] 05/30/2023 3:30 PM EST Cardiac Studies Cardiac Studies, [facility] [address] [facility] [place], [place] [address] 07/13/2023 11:00 AM EST Cardiac Studies Cardiology, [facility] [address] [facility] [facility] [place] [address] [facility] [address] [facility], [place] [address] 07/18/2023 11:00 AM EST Office Visit Cardiology, [facility] [address] [facility] [place] [address] [place] [facility]-C [facility] [address] 08/08/2023 11:15 AM EST Office Visit Hematology/Oncology [facility] 200 [facility] [place], [place] [address] Rubin Rendon MD [address] [place] [address] 08/17/2023 9:30 AM EDT Office Visit Family Practice, [place] [address] [facility], [place] [id number] Chelsey Mitchell DO [address] [facility] [place] [address] 10/23/2023 10:00 AM EDT Nurse Only Ancillary Department, [place] [address] [facility], [place] [address] Simpson, Nurse [facility] [address] [facility], [place] [address] Scheduled Procedures Name Priority Associated Diagnoses Date/Ti [...] Additional history exists CKD PHOS USE SMARTSET 74507 02/11/2024 09/0 01/2023, 10/17/2022, 04/12/2021, Additional history exists CKD HGB USE SMARTSET 06111 04/07/202404/07, 04/06/2023, 04/06/2023, Additional history exists DXA [...] this encounter Medical Devices Implanted Type Area Disc Pad Knockout Worker Device Identifier Shelf Expiration Date Model / Serial / Lot Lens 21.0 Mx60 - [id number] Implanted:Qty: 1 on 03/23/2016 by Jax Theodore MD at OR [facility] [employer] : SURGICAL 10/02/2018 MX60-21.0 / [id number] / [id number] Lens 21.5 Mx60 - [id number] - [id number] Implanted:Qty: 1 on 04/20/2016 by Jax Theodore MD at OR [facility] Right: Eye [employer] : SURGICAL 09/02/2018 MX60-21.5 / [id number] / [id number] Valve Marni 3 Ultra 23mm - [id number] Implanted:Qty: 1 on 04/06/2023 by Payam Amor MD at [facility] [employer] [id number] / / documented as of this encounter [...] and were consensually agreed upon. Care Teams Glove Cleaner Relationship Specialty Start Date End Date Chelsey Mitchell DO [address] [place] [address] PCP - General Family Medicine 07/10/18 documented as of this encounter
--- OUTSIDE RECORDS SUMMARY | 2023-06-11 13:24 | External Medical Summary | Summary of Care ---
Author Name Unknown Organization [facility] Address [address] [facility] [address] Phone [phone] Care Team Providers Care Absorption Operator Name Role Phone Chelsey Mitchell DO Primary Care Provider Encounter Details Date Type Department Care Team Description 02/22/2023 Result Scan Unspecified Department Darrell Sparks DO [address] [place] [address] <No scans attached> Allergies Active Allergy Reactions Severity Noted Date Comments Bee Venom Abdominal pain,Edema face/lips/tongue High 02/17/2011 Sulfa Antibiotics Rash Medium 12/26/2007 documented as of this encounter (statuses as of 02/22/2023) Medications Medication Sig Dispensed Refills Start Date End Date Status ASPIRIN 81 MG PO TABS one a day 0 Active ONETOUCH ULTRASOFT LANCETS MISC Use one time a day in the morning. E11.9 1 Box Dosing Unit 11 07/19/2018 Active Diclofenac Sodium (VOLTAREN) 1 % gelIndications:Degen eration of cervical intervertebral disc,Generalized osteoarthritis,Hx of gastric ulcer Place 2 g topically on the skin 2 times a day. To affected area as directed. 100 g 5 08/05/2019 Active Vitamin D (Cholecalciferol) 10 MCG (400 [...] Active Meclizine HCl 12.5 MG Oral Tablet (Antivert)Indication s:Vertigo TAKE ONE TABLET BY MOUTH THREE TIMES DAILY if needed for dizziness 30 Tablet 1 06/08/2021 Active Metoprolol Tartrate 25 MG Oral Tablet [...] MOUTH DAILY 45 Tablet 2 09/20/2022 Active Atorvastatin Calcium 20 MG Oral Tablet (Lipitor)Indications :Dyslipidemia, goal LDL below 100 TAKE 1 TABLET BY MOUTH ONCE DAILY 90 Tablet 1 10/09/2022 Active Levothyroxine Sodium 100 MCG Oral Tablet [...] needed for Pain, Mild. 30 Tablet 0 02/08/2023 Active Cefdinir 300 MG Oral Capsule (Omnicef)Indications :Urinary tract infection without hematuria, site unspecified Take 1 Capsule by mouth in the morning and 1 Capsule before bedtime. Do all this for 10 days. For 10 days.. 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 02/16/2023 Diabetes mellitus without complication 9 10/22/2018 Hypertensive kidney disease with chronic kidney disease stage III 04/18/2018 04/16/2020 Overview: Per CKD protocol Hx of gastric ulcer 10/16/2017 08/08/2018 Mild aortic valve stenosis 08/14/201711/28 Gastric ulcer 03/16/2017 10/16/2017 Schatzki's ring of distal esophagus 03/16/2017 10/16/2017 Generalized edema 06/08/2016 07/19/2018 Bronchitis, complicated 08/01/2014 10/17/19 18 Kidney disease, chronic, stage III (GFR 30-59 ml /min) 07/29/2013 05/18/2018 Overview: Per CKD protocol #1 Coronary artery disease (CAD) excluded 3 08/08/2018 Overview: Negative cardiac catheterization 09/2012 Actinic keratosis 08/27/2012 04/18/2018 SOB (shortness of breath) on exertion 08/27/2012 04/18/2018 History of basal cell carcinoma 08/25/2011 04/18/2018 Chest pain 03/25/2010 06/08/2016 Preoperative cardiovascular examination 03/25/20 10 10/04/2012 Undiagnosed cardiac murmurs 03/25/201002/04 Dyslipidemia, goal to be determined 03/25/2010 10/04/2012 Sicca syndrome 12/26/2008 10/16/2017 Pulsatile tinnitus 12/31/2007 10/16/2017 Temporomandibular joint disorders, unspecified 0 12/08/2006 08/14/2017 Overview: Dr. De La Rosa Vertigo 12/08/2006 10/16/2017 Overview: Dr. De La Rosa Chronic rhinitis 12/08/2006 10/16/2017 Overview: Dr. De La Rosa documented as of this encounter (statuses as of 02/22/2023) Immunizations Name Administration Dates Next Due COVID-19 mRNA, LNP-s, No Pre serve, 2-Dose Series (yuilop SL) 10/01/2021,05/05/2021,09/10/2020,08/03 Covid-19, Mrna, Lnp-s, Pf, B ivalent, 30 Mcg, IM, 12 yrs and above (yuilop SL) 05/10/2022 Pneumococcal Conjugate Vacc, 13 Valent (Prevnar) 06/24/2015 Pneumococcal Polysaccharide PPV23 (Pneumovax) 04/29/2013 Season Influenza, Cell Culte r, 18+ Yrs, With Preserv (Flucelvax) 06/14/2013 Season Influenza, Quad, PF, Adjuvanted, 65+ Yrs, IM (FLUAD) 04/09/2020 Seasonal Influenza, PF, 6 mo ns & Above, IM , (Flulaval) 05/03/2019,04/18/2018,07/14/2017 05/03/2020 Seasonal Influenza, Quadriva lent Hd [...] drink = 0.6 oz pur e alcohol) Food Insecurity Answer Date Recorded Within the past 12 months, y ou worried that your food would run out before you got money to buy more. Never true 10/17/2022 Within the past 12 months, t he food you bought just didn't last and you didn't have money to get more. Never true 10/17/2022 Sex Assigned at Date Recorded Female 12/11/2018 10:35 AM EDT Job Start Date Occupation Industry Not on file Not on file Not on file documented as of this encounter Plan of Treatment Upcoming Encounters Date Type Specialty Care Team Description 03/06/2023 Office Visit Cardiothoracic Surgery Diego Bright MD [address] [facility] [place] [address] 03/06/2023 Appointment Radiology 03/22/2023 Immunization/Injection Hematology Oncolog y Nurse, Med 4 [address] [place] [address] 04/19/2023 Immunization/Injection Hematology Oncolog y Nurse, Med 4 [address] [facility] [place], [place] [address] 04/28/2023 Office Visit Cardiology Rosa [place] PA-C [address] [place] [address] 07/13/2023 Cardiac Studies Cardiology Rashida, [facility] [address] [place] [address] 08/08/2023 Office Visit Hematology Oncology Rubin Rendon MD [address] [facility] [place], [place] [address] 08/17/2023 Office Visit Family Medicine Chelsey Mitchell, [address] [place] [address] 10/23/2023 Nurse Only Ancillary Nurse [facility] [address] [place] [address] Scheduled Procedures Name Priority Associated Diagnoses Date/Ti me ESOPHAGOGASTRODUODENOSCOPY ( EGD), FLEXIBLE, TRANSORAL, ENDOSCOPIC ULTRASOUND Recall Duodenal nodule Health Maintenance Due Date Last Done Comments DTaP,Tdap,and Td Vaccines (1 - Tdap) 1954 HbA1c 06/10/2023 12/08/2022, 04/05, 10/13/2021, Additional history exists DIABETES-EYE EXAM 10/04/2023 10/03/2022, 06/21/2019 Albumin/Creatinine Ratio 10/18/2023 10/17/2022, 04/05 Depression Screening 10/18/2023 10/17/2022 Diabetic Foot Exam 10/18/2023 10/17/2022, 0 10/07/2020, 08/12/2019, Additional history exists TSH 10/18/2023 10/17/2022, 10/03, 11/26/2020, Additional history exists CKD HGB USE SMARTSET 03762 02/11/202402/10, 12/08/2022, 12/08/2022, Additional history exists CKD PHOS USE SMARTSET 79925 02/11/2024 09/0 01/2023, 10/17/2022, 04/12/2021, Additional history exists DXA Scan 11/22/2029 11/22/2022, 03/05, 01/24/2011, Additional history exists Pneumococcal Vaccine: 65+ Years Completed 06/24/2015, 04/29/2013 Zoster Vaccines Completed 07/19/2018, 01/04, 05/09/2014 COVID-19 Vaccine Completed 05/10/2022, , 05/05/2021, Additional history exists Influenza Vaccine (FLU shot) Completed , 04/15/2022, 03/18/2021, Additional history exists GARDASIL-HPV IMMUNIZATION SERIES Aged Out No longer eligible based on patient's age to complete this topic Hepatitis B Aged Out No longer eligi ble based on patient's age to complete this topic MENINGOCOCCAL (MENACTRA/MENVEO) Aged Out No longer eligible based on patient's age to complete this topic documented as of this encounter Medical Devices Implanted Type Area Cyber Instructor Device Identifier Shelf Expiration Date Model / Serial / Lot Lens 21.0 Mx60 - [id number] Implanted:Qty: 1 on 03/23/2016 by Jax Theodore MD at OR [facility] [employer] : SURGICAL 10/02/2018 MX60-21.0 / [id number] / [id number] Lens 21.5 Mx60 - [id number] - [id number] Implanted:Qty: 1 on 04/20/2016 by Jax Theodore MD at [facility] Right: Eye [employer] : SURGICAL 09/02/2018 MX60-21.5 / [id number] / [id number] documented as of this encounter Procedures Procedure Name Priority Date/Time Associated Diagnosis Comments CARDIOLOGY SCANNED RESULT 02/22/2023 documented in this encounter Results * CARDIOLOGY SCANNED RESULT (02/22/2023) 02/22/2023 Darrell Sparks DO OTHER documented in this [...] and were consensually agreed upon. Care Teams Absorption Operator Relationship Specialty Start Date End Date Chelsey Mitchell, [address] [place] [address] PCP - General Family Medicine 07/10/18 documented as of this encounter
--- OUTSIDE RECORDS SUMMARY | 2023-06-11 13:24 | External Medical Summary | Summary of Care ---
Author Name Unknown Organization [facility] Address [address] [place] [address] Phone [phone] Care Team Providers Care Real Estate Administrator Name Role Phone Chelsey Mitchell DO Primary Care Provider [phone] Reason for Visit * Reason Comments NEW PATIENT * Evaluate & Treat - Unlimited Visits (Within 30 days (routine)) - Authorized Specialty Diagnoses / Procedures Referred By Josef hooks Referred To Contact Cardiovascular Medicine Diagnoses Severe aortic stenosis Darrell Sparks DO [address] [place] [address] Referral ID Status Reason Start Date Expiration Date Visits Requested Visits Authorized [id number] Authorized Specialty Services Required 12/19/2022 12/20/[phone] Encounter Details Date Type Department Care Team Description 03/06/2023 Office Visit Cardiothoracic [facility]urg [facility] [address], [place] [id number] Diego Bright MD [address], [place] [id number] Aortic valve stenosis, unspecified etiology* Allergies Active Allergy Reactions Severity Noted Date Comments Bee Venom Abdominal pain,Edema face/lips/tongue High 02/17/2011 Sulfa Antibiotics Rash Medium 12/26/2007 documented as of this encounter (statuses as of 03/06/2023) Medications Medication Sig Dispensed Refills Start Date [...] 03/06/2023 Metoprolol Tartrate 25 MG Oral Tablet (Lopressor)Indicati [...] MOUTH DAILY 45 Tablet 2 3 Active Atorvastatin Calcium 20 MG [...] Pain, Mild. 30 Tablet 0 3 Active Diclofenac Sodium (VOLTAREN) 1 % gelIndications:Dege neration of cervical intervertebral disc,Generalized osteoarthritis,Hx of gastric ulcer Place 2 g topically on the skin 2 times a day. To affected area as directed. 100 g 5 0 03/06/20 23 Discontinued documented as of this encounter (statuses as of 03/06/2023) Active Problems Problem Noted Date Diabetic peripheral [...] as of this encounter (statuses as of 03/06/2023) Resolved Problems Problem Noted Date Resolved Date [...] as of this encounter (statuses as of 03/06/2023) Immunizations Name Administration Dates Next Due COVID-19 [...] Sign Reading Time Taken Comments Blood Pressure 126/74 03/06/2023 1:03 PM EDT Pulse 64 03/06/2023 1:03 PM EDT Temperature - - Respiratory Rate - - Oxygen Saturation 95% 03/06/2023 1:03 PM EDT Inhaled Oxygen Concentration - - Weight 84.9 kg (187 lb 1.6 oz) 03/06/2023 1:03 P M EDT Height - - Body Mass Index 34.22 02/16/2023 9:43 AM EDT documented in this encounter Progress Notes * Vel Paniagua PA-C - 03/06/2023 1:00 PM EDT Images from the original note were not included. HISTORY AND PHYSICAL EXAMINATION - [facility] Name: Magdalena Payan Date: 03/06/2023 Time: 115 PM REFERRING PHYSICIAN: Chelsey Mitchell DO PCP: Chelsey Mitchell DO BOOK SALESMAN: Clare [place] [facility] [place]: Magdalena Payan is a 87 year old female who [...] neuroendocrine tumor, on treatment with Sandostatin-monthly injection [place] Heart Failure Classification: Class III (Moderate) Current [...] meal of the day 90 Capsule 1 [employer] In Vitro Strip (Glucose Blood) use as [...] KNEE TOTAL [address] Qureshi, [facility] [place] CARDIAC CATH INJ. FOR CORONARY ANGIOGRAPHY 09/2012 [facility], no significant CAD COLONOSCOPY, DIAGNOSTIC (RECTUM) 02/08/2017 polyp removed not retrieved, diverticulosis/[facility] CORONARY ANGIOGRAPHY W/LEFT HEART CATH Right 02/10/2023 CORONARY ANGIOGRAPHY W/LEFT HEART CATH performed by Miles Zuleta DO at [place] [facility] [place] DILATION AND CURETTAGE (D&C) 2000 after postmenopausal bleeding. EGD, FLEXIBLE, DIAGNOSTIC 02/08/2017 mild-mod inflammation, Schatzki ring, repeat 2 mo/[facility] EGD, FLEXIBLE, DIAGNOSTIC 04/10/2017 mild-mod inflammation on bx, gastric ulcer, repeat 6-8 wks/[facility] EGD, FLEXIBLE, DIAGNOSTIC 05/23/2017 well differentiated neuroendocrine tumor / [facility] EGD, FLEXIBLE, DIAGNOSTIC 08/31/2017 gastritis, repeat 1 yr/[facility] EGD, W/ENDOSCOPIC US N/A 06/08/2017 ESOPHAGOGASTRODUODENOSCOPY (EGD), FLEXIBLE, TRANSORAL, ENDOSCOPIC ULTRASOUND performed by Chapincito Saha MD [place] [facility], W/ENDOSCOPIC US N/A 06/22/2018 ESOPHAGOGASTRODUODENOSCOPY (EGD), FLEXIBLE, TRANSORAL, ENDOSCOPIC ULTRASOUND performed by Chapincito Saha MD [place] [facility] [place]GD, W/ENDOSCOPIC US N/A 07/24/2018 ESOPHAGOGASTRODUODENOSCOPY (EGD), FLEXIBLE, TRANSORAL, ENDOSCOPIC ULTRASOUND performed by Chapincito Saha MD at [place] [facility] [place] [place]GD, W/ENDOSCOPIC US N/A 08/06/2019 ESOPHAGOGASTRODUODENOSCOPY (EGD), FLEXIBLE, TRANSORAL, ENDOSCOPIC ULTRASOUND performed by Chapincito Saha MD [place] [facility] [place] LUMBAR DISC ARTHROPLAST,REMV,ADDL INTERSPCE 2010 Br Rhona, lumbar 3 levels she thinks MOHS IMAGE (BIOMED) [address] Nielsen. REMOVE CATARACT, INSERT LENS PROSTH Right 04/20/2016 EXTRACAPSULAR CATARACT REMOVAL WITH INTRAOCULAR LENS performed by Jax Theodore MD at OR [facility] Hx of vein harvest or stripping?: no SOCIAL HISTORY: Drug Use: never Social History Tobacco Use Smoking status: Never Passive exposure: Never Smokeless tobacco: Never Vaping Use Vaping Use: Never used Substance Use Topics Alcohol use: No Drug use: No FAMILY HISTORY: Family History Problem Relation Age of Onset Heart Disorder Sister CAD Heart Disorder Sister CAD Heart Disorder Brother passed [place] Family History of premature CAD: yes REVIEW OF SYSTEMS: Constitutional: denies weight loss, denies fever, denies shaking chills Eyes: s/p cataract surgery,dry eyes uses restasis Ear, nose and throat: decreased hearing, with tinnitus, denies trouble swallowing, denies epistaxis Dental: top plates, bottom plates Cardiac: may have had silent [place] denies CVA Vascular: no claudication Respiratory: shortness [...] likely TAVR Vel Paniagua PA-C CARDIOTHORACIC SURG [facility] [place] [phone] Patient seen and studies reviewed. Magdalena Payan is an 87-year-old female with past medical history significant for hypertension, dyslipidemia, diabetes and hypothyroidism who has had known aortic stenosis for many years. She has begun to experience increasing shortness of breath and fatigue. Echocardiogram confirms progression of a her aortic stenosis to a now severe degree. Mean gradient is 42 mmHg. Left ventricular function is preserved. Coronary angiogram was negative for obstructive coronary disease. 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 Diego Smith MD Cardiac [place] [facility] documented in this encounter Plan of Treatment Upcoming Encounters Date Type Specialty Care Team Description 03/06/2023 Hospital Encounter Radiology Arrive d 03/22/2023 Immunization/Injection Hematology Oncolog y Nurse, Med 4 [address] [facility] [place] [address] 04/19/2023 Immunization/Injection Hematology Oncolog y Nurse, Med 4 [address] [facility] [place] [address] 07/13/2023 Cardiac Studies Cardiology [facility] [address] [place] [address] 07/18/2023 Office Visit Cardiology Rosa Tyler PA-C [address] [place] [address] 08/08/2023 Office Visit Hematology Oncology Rubin Rendon MD [address] [facility] [place] [address] 08/17/2023 Office Visit Family Medicine Chelsey Mitchell, [address] [place] [address] 10/23/2023 Nurse Only Ancillary [facility] Annual Wellness [address] [place] [address] Scheduled Procedures Name Priority Associated Diagnoses Date/Ti [...] Additional history exists CKD HGB USE SMARTSET 35307 02/11/202402/10, 12/08/2022, 12/08/2022, Additional history exists CKD PHOS USE SMARTSET 16781 02/11/2024 09/0 01/2023, 10/17/2022, 04/12/2021, Additional history [...] this encounter Medical Devices Implanted Type Area Conservation Specialist Device Identifier Shelf Expiration Date Model / Serial / Lot Lens 21.0 Mx60 - [id number] Implanted:Qty: 1 on 03/23/2016 by Jax Theodore MD at OR [facility] [employer] : SURGICAL 10/02/2018 MX60-21.0 / [id number] / [id number] Lens 21.5 Mx60 - [id number] - [id number] Implanted:Qty: 1 on 04/20/2016 by Jax Theodore MD at OR [facility] Right: Eye [employer] : SURGICAL 09/02/2018 MX60-21.5 / [id number] / [id number] documented as of this encounter Visit Diagnoses Diagnosis Aortic valve stenosis, unspecified etiology- Primary Aortic stenosis Aortic valve disorders documented in [...] and were consensually agreed upon. Care Teams Real Estate Administrator Relationship Specialty Start Date End Date Chelsey Mitchell, DO [address] [place] [address] PCP - General Family Medicine 07/10/18 documented as of this encounter"
--- OUTSIDE RECORDS SUMMARY | 2023-06-11 13:24 | External Medical Summary | Summary of Care ---
Author Name Unknown Organization [facility] Address [address] [place] [address] Phone [phone] Care Team Providers Care Cement Truck Loader Name Role Phone Chelsey Mitchell DO Primary Care Provider Encounter Details Date Type Department Care Team Description 02/20/2023 Telephone [facility] [address] [place] [address] Chelsey Mitchell DO [address] [place] [address] Allergies Active Allergy Reactions Severity Noted Date Comments Bee Venom Abdominal pain,Edema face/lips/tongue High 02/17/2011 Sulfa Antibiotics Rash Medium 12/26/2007 documented as of this encounter (statuses as of 02/21/2023) Medications Medication Sig Dispensed Refills Start Date [...] as of this encounter (statuses as of 02/21/2023) Active Problems Problem Noted Date Diabetic peripheral [...] as of this encounter (statuses as of 02/21/2023) Resolved Problems Problem Noted Date Resolved Date [...] as of this encounter (statuses as of 02/21/2023) Immunizations Name Administration Dates Next Due COVID-19 mRNA, LNP-s, No Pre serve, 2-Dose Series ([employer]) 10/01/2021,05/05/2021,09/10/2020,08/03 Covid-19, Mrna, Lnp-s, Pf, B ivalent, [...] encounter Miscellaneous Notes * Telephone Encounter - Kate Galeano LPN - 02/21/2023 9:47 AM EDT Provider to address: Patient is aware and verbalizes understanding. She started medication on Monday. Reason for Call: No chief complaint on file. Contact: Telephone Call Contact Type: Follow-up Total Time including non face to face (minutes): 5 * Telephone Encounter - Yanira Rivero LPN - 02/20/2023 5:17 PM EDT left message on machine for pt to call office Wanted to see if she started the antibiotic Dr. Mitchell ordered on Monday. If not she needs to start it due to her urine culture being positive for infection Thanks * Telephone Encounter - Chelsey Mitchell DO - 02/20/2023 8:45 AM EDT Recent urine showed an infection. Completed the antibiotic Results for orders placed or performed in visit on 02/16/23 CULTURE, URINE, QUANTITATIVE Specimen: Urine, Clean Catch Result Value Ref Range Culture Growth >100,000 colonies/mL Escherichia coli (A) Susceptibility Escherichia coli - MICROBROTH DILUTIONS Ampicillin Susceptible Cefazolin Susceptible Cefepime Susceptible Ceftriaxone Susceptible Ciprofloxacin* Susceptible * Due to serious side effects, the FDA has advised against using Ciprofloxacin to treat uncomplicated UTIs and respiratory tract infections unless there are no alternative treatment options. Gentamicin Susceptible Nitrofurantoin Susceptible Piperacillin Tazobactam Susceptible Trimeth/Sulfamethoxazole Susceptible URINALYSIS, POINT OF CARE (ENTER/EDIT) Result Value Ref Range Color, Urine Yellow Yellow or Light Yellow Clarity, Urine Slightly Cloudy Clear Glucose, Urine Negative Negative mg/dL Bilirubin, Urine Negative Negative Ketone, Urine Negative Negative mg/dL Specific [place], Urine 1.025 1.003 - 1.030 Blood, Urine Negative Negative pH, Urine 5.5 5.0 - 7.5 units Protein, Urine Negative Negative mg/dL Urobilinogen, Urine 0.2 0.2 - 1.0 mg/dL Nitrite, Urine Negative Negative Esterase, Urine Small (A) Negative documented in this encounter Plan of Treatment Upcoming Encounters Date Type Specialty Care Team Description 02/22/2023 Immunization/Injection Hematology Oncolog y Nurse, Med 4 [address] [facility] [place] [address] 03/06/2023 Office Visit Cardiothoracic Surgery Diego Bright MD [address] [place] [address] 03/06/2023 Appointment Radiology 03/22/2023 Immunization/Injection Hematology Oncolog y Nurse, Med [address] [place] [address] 04/19/2023 Immunization/Injection Hematology Oncolog y Nurse, Med [address] [place] [address] 04/28/2023 Office Visit Cardiology Rosa Tyler PA-C [address] [place] [address] 07/13/2023 Cardiac Studies [facility] [address] [place] [address] 08/08/2023 Office Visit Hematology Oncology Rubin Rendon MD [address] [place] [address] 08/17/2023 Office Visit Family Medicine Chelsey Mitchell, [address] [place] [address] 10/23/2023 Nurse Only Ancillary [place], Nurse Annual Wellness [address] [place] [address] Scheduled Procedures Name Priority Associated Diagnoses Date/Ti [...] Additional history exists CKD HGB USE SMARTSET 45994 02/11/202402/10, 12/08/2022, 12/08/2022, Additional history exists CKD PHOS USE SMARTSET 49478 02/11/2024 09/0 01/2023, 10/17/2022, 04/12/2021, Additional history [...] this encounter Medical Devices Implanted Type Area Lease Purchase Truck Driver Device Identifier Shelf Expiration Date Model / Serial / Lot Lens 21.0 Mx60 - [id number] Implanted:Qty: 1 on 03/23/2016 by Jax Theodore MD at OR [facility] [employer] : SURGICAL 10/02/2018 MX60-21.0 / [id number] / [id number] Lens 21.5 Mx60 - [id number] - [id number] Implanted:Qty: 1 on 04/20/2016 by Jax Theodore MD at [facility] Right: Eye [employer] : SURGICAL 09/02/2018 MX60-21.5 / [id number] / [id number] documented as of this encounter Advance Directives [...] and were consensually agreed upon. Care Teams Cement Truck Loader Relationship Specialty Start Date End Date Chelsey Mitchell, DO [address] [place] [address] PCP - General Family Medicine 07/10/18 documented as of this encounter
--- OUTSIDE RECORDS SUMMARY | 2023-06-11 13:24 | External Medical Summary | Summary of Care ---
Author Name Unknown Organization [facility] Address [address] [place] [address] Phone [phone] Care Team Providers Care Turbogenerator Operator Name Role Phone Tania Orlando DO Primary Care Provider [phone] Reason for Visit * Reason Comments eRx-Medication Refill Encounter Details Date Type Department Care Team (Late st Contact Info) Description 04/02/2023 Refill [facility] [address] [place] [address] Tania Orlando DO [address] [place] [address] Dyslipidemia, goal LDL below 100 Allergies Active Allergy Reactions Criticality Noted Date [...] the day 90 Capsule 1 3 Active [employer] In Vitro Strip (Glucose Blood) use as [...] ONCE DAILY 90 Tablet 1 3 Active Atorvastatin Calcium 20 MG Oral Tablet (Lipitor)Indication s:Dyslipidemia, goal LDL below 100 TAKE 1 TABLET BY MOUTH ONCE DAILY 90 Tablet 1 3 04/03/20 23 Discontinued documented as of this encounter [...] mRNA, LNP-s, No Pre serve, 2-Dose Series ([employer]) 10/01/2021,05/05/2021,09/10/2020,08/03 Covid-19, Mrna, Lnp-s, Pf, B ivalent, 30 Mcg, IM, 12 yrs and above ([employer]) 05/10/2022 Pneumococcal Conjugate Vacc, 13 Valent (Prevnar) [...] encounter Miscellaneous Notes * Telephone Encounter - Joss Orantes [facility] - 04/03/2023 9:41 AM EDTSigned Prescriptions: Disp Refills Atorvastatin Calcium 20 MG Oral Tablet (Li*90 Tab*1 Sig: TAKE 1 TABLET BY MOUTH ONCE DAILYAuthorizing Provider: TANIA ORLANDO User: JOSS ORANTES----- documented in this encounter Plan of Treatment Upcoming Encounters Date Type Department Care Team (Latest Contact Info) Description 04/06/2023 8:00 AM EDT Hospital Encounter [facility] [place] [place] Suite Waiting Unit, [address] [place] [address] Payam Amor MD [address] [place] [address] 04/06/2023 8:00 AM EDT - 04/06/2023 9:10 AM EDT Surgery [facility] [place] [place] [facility] [facility] Suite Waiting Unit, H [address] [place] [address] Payam Amor MD [address] [place] [address] REPLACE AORTIC VALVE, PERCUTANEOUS FEMORAL 04/06/2023 8:00 AM EDT Office Visit Cardiology [facility] [address] [place] [address] [facility] Cardiac Recovery [facility] [address] [place] [address] 04/19/2023 10:00 AM EST Immunization/Injec tion Hematology/Oncolog y Treatment, [place] [address] [place] [address] Nurse, Med [address] [place] [address] 07/13/2023 11:00 AM EST Cardiac Studies Cardiology, [facility] [address] [place] [id number] [facility] [address] [place] [address] 07/18/2023 11:00 AM EST Office Visit Cardiology, [facility] [address] [facility] [place] [address] Rosa Tyler, RYAN [address] [place] [address] 08/08/2023 11:15 AM EST Office Visit Hematology/Oncolog y [facility] [address] [facility] [place], [place] [address] Rubin Rendon MD [address] [facility] [place] [address] 08/17/2023 9:30 AM EDT Office Visit Family Practice, [place] [address] [facility], [place] [id number] Tania Orlando, [address] [facility], [place] [address] 10/23/2023 10:00 AM EDT Nurse Only Ancillary Department, [place] [address] [place] [address] [place], Nurse Annual Wellness [address] [place] [facility] [place] [address] Scheduled Procedures Name Priority Associated Diagnoses Date/Ti [...] Additional history exists CKD HGB USE SMARTSET 92143 02/11/202402/10, 12/08/2022, 12/08/2022, Additional history exists CKD PHOS USE SMARTSET 71450 02/11/2024 09/0 01/2023, 10/17/2022, 04/12/2021, Additional history [...] this encounter Medical Devices Implanted Type Area Nurse Aide Evaluator Device Identifier Shelf Expiration Date Model / Serial / Lot Lens 21.0 Mx60 - [id number] Implanted:Qty: 1 on 03/23/2016 by Jax Theodore MD at OR [facility] [employer] : SURGICAL 10/02/2018 MX60-21.0 / [id number] / [id number] Lens 21.5 Mx60 - [id number] - [id number] Implanted:Qty: 1 on 04/20/2016 by Jax hTeodore MD at OR [facility] Right: Eye [employer] : SURGICAL 09/02/2018 MX60-21.5 / [id number] / [id number] documented as of this encounter Visit Diagnoses Diagnosis Dyslipidemia, goal LDL below 100 Other and unspecified hyperlipidemia Aortic stenosis Aortic valve disorders documented in this encounter Advance Directives Latest Code Status on File Code Status Date Activated Date Inactivated Comments Full Code 04/20/2016 9:47 AM 04/20/2016 2:37 PM Th is order reflects the patients [...] and were consensually agreed upon. Care Teams Turbogenerator Operator Relationship Specialty Start Date End Date Tania Orlando DO [address] [place] [facility] [place] [address] PCP - General Family Medicine 07/10/18 documented as of this encounter
--- OUTSIDE RECORDS SUMMARY | 2023-06-11 13:24 | External Medical Summary ---
Author Name Unknown Address Unknown Organization K01:LABORATORY [facility] [place] - [address] [facility] [address] Laboratory Report Ordering Provider Test Date Status KAVYA MARINGARY 02/16/2023 10:44:06 Final <10,000 colonies/ml mixed no rmal jerson Observation Date Value Abnormality Reference (Units ) Status Bacteria identified in Specimen by Culture 02/16/2023 10:44:06 [id number]^ESCHE RICHIA COLI Abnormal Final >100,000 colonies/mL Escheri javier coli Performing Location LABORATORY [facility] [place] - [address] [facility] [address] Ordering Provider Test Date Status KAVYA MARINGARY 02/16/2023 10:44:06 Final Observation Date Value Abnormality Reference (Units ) Status Ampicillin 02/16/2023 10:44:06 4 Susceptible Final Cefazolin 02/16/2023 10:44:06 <=4 Susceptible Final Cefepime susceptibility 02/16/2023 10:44:06 <=1 Susceptible Final Ceftriaxone suceptibility 02/16/2023 10:44:06 <=1 Susceptible Final Ciprofloxacin 02/16/2023 10:44:06 <=0.25 Susceptible Final Due to serious side effects, the FDA has advised against using Ciprofloxacin to treat uncomplicated UTIs and respiratory tract infections unless there are no alternative treatment options. Gentamicin susceptibility 02/16/2023 10:44:06 <=1 Susc eptible Final Nitrofurantoin susceptibility 02/16/2023 10:44:06 <=16 Susceptible Final Piperacillin + Tazobactamsusceptibility 02/16/2023 10:44:06 <=4 Susceptible Final TMP-SMZ susceptibility 02/16/2023 10:44:06 <=20 Suscept ible Final Test: Culture, Urine, Quanti tative
Specimen Source: Urine, Clean Catch
Specimen Type: Urine
Specimen Date: 02/16/2023 10:44 AM
Result Date: 02/18/2023 1:54 PM
Result Status: Final result
Abnormal: Yes
Resulting Lab: LABORATORY [facility]
[address]
[facility] [address]

CULTURE

>100,000 colonies/mL Escherichia coli (Abnormal)

<10,000 colonies/ml mixed normal jerson

SUSCEPTIBILITY

Escherichia coli
METHOD MICROBROTH DILUTIONS

AMPICILLIN 4 Susceptible
CEFAZOLIN <=4 Susceptible
CEFEPIME <=1 Susceptible
CEFTRIAXONE <=1 Susceptible
CIPROFLOXACIN <=0.25 Susceptible [1]
GENTAMICIN <=1 Susceptible
NITROFURANTOIN <=16 Susceptible
PIPERACILLIN TAZOBACTAM <=4 Susceptible
TRIMETH/SULFAMETHOXAZOLE <=20 Susceptible

[1] Due to serious side effects, the FDA has advised against using
Ciprofloxacin to treat uncomplicated UTIs and respiratory tract infections
unless there are no alternative treatment options.

null Performing Location LABORATORY [facility] [place] - [address] [facility] [address]
--- OUTSIDE RECORDS SUMMARY | 2023-06-11 13:24 | External Medical Summary ---
Author Name Unknown Address Unknown Organization : Laboratory Report Ordering Provider Test Date Status NO,UNKNOWN 03/06/2023 15:17:42 Final Observation Date Value Abnormality Reference (Units ) Status Creatinine, POC (i-STAT) 03/06/2023 15:17:42 1.6 Above high normal 0.5-1.0 (mg/dL) Final Performing Location
--- OUTSIDE RECORDS SUMMARY | 2023-06-11 13:24 | External Medical Summary | Summary of Care ---
Author Name Unknown Organization [facility] [address] [facility] [address] Phone [phone] Care Team Providers Care Institutional Custodian Name Role Phone Chelsey Mitchell DO Primary Care Provider Reason for Visit * Reason Onset Date Comments Other 12/20/2022 Encounter Details Date Type Department Care Team Description 12/20/2022 Telephone Cardiology, [facility] [address] [place] [address] Darrell Sparks DO [address] [place] [address] Other Allergies Active Allergy Reactions Severity Noted Date Comments Bee Venom Abdominal pain,Edema face/lips/tongue High 02/17/2011 Sulfa Antibiotics Rash Medium 12/26/2007 documented as of this encounter (statuses as of 03/21/2023) Medications Medication Sig Dispensed Refills Start Date [...] the day 90 Capsule 1 3 Active Diclofenac Sodium (VOLTAREN) 1 % gelIndications:Deg eneration of cervical intervertebral disc,Generalized osteoarthritis,Hx of gastric ulcer Place 2 g topically on the skin 2 times a day. To affected area as directed. 100 g 5 0 023 Discontinued OneTouch Verio In Vitro Strip (Glucose Blood) use as directed to test blood sugar once a day 100 Strip 3 2 023 Discontinued HYDROcodone-Acetam inophen 5-325 MG Oral TabletIndications: Osteoarthritis of multiple joints, unspecified osteoarthritis type,Generalized OA Take 1 Tablet by mouth every 6 hours as needed for Pain, Mild. 30 Tablet 0 3 023 Discontinued(Re fill) documented as of this encounter (statuses as of 03/21/2023) Active Problems Problem Noted Date Diabetic peripheral [...] as of this encounter (statuses as of 03/21/2023) Resolved Problems Problem Noted Date Resolved Date [...] as of this encounter (statuses as of 03/21/2023) Immunizations Name Administration Dates Next Due COVID-19 mRNA, LNP-s, No Pre serve, 2-Dose Series ([employer]) 10/01/2021,05/05/2021,09/10/2020,08/03 Covid-19, Mrna, Lnp-s, Pf, B ivalent, 30 Mcg, IM, 12 yrs and above ([employer]) 05/10/2022 Pneumococcal Conjugate Vacc, 13 Valent (Prevnar) 06/24/2015 Pneumococcal Polysaccharide PPV23 (Pneumovax) 04/29/2013 SEASONAL INFLUENZA, PF, 6 M & Above, IM , (FLULAVAL or FLUZONE) 05/03/2019,04/18/2018,07/14/2017 05/03/2020 Season Influenza, Cell Culte r, 18+ Yrs, With Preserv (Flucelvax) 06/14/2013 Season Influenza, Quad, PF, Adjuvanted, 65+ Yrs, IM (FLUAD) 04/09/2020 Seasonal Influenza, Quadriva lent Hd (Fluzone Hd) 04/15/2022,03/18/2021 Seasonal Influenza, Quadriva lent, No Preserve, IM [...] encounter Miscellaneous Notes * Telephone Encounter - KAREN King - 2022 6:00 AM EDT No alerts received for this patient. Will schedule a check to arrive tomorrow for further review. Will forward to Dr. Sparks to see if he would like to see the patient in the office. * Telephone Encounter - DIAZ Clark - 12/20/2022 5:30 PM EDT Kevin Afternoon Called patient to schedule in [facility]. At the time of the call she stated that she was gettingready for bed last evening (12/19) and had an all the sudden dizzy spell come over here where she grabbed the bed to keep from falling. She is wondering if anything appeared on the remote check or if it was just a fluke Please advise She can be reached at number in the chart documented in this encounter Plan of Treatment Upcoming Encounters Date Type Specialty Care Team Description 03/22/2023 Immunization/Injecti o n Hematology Oncology Nurse, Med [address] [place] [address] 04/19/2023 Immunization/Injecti o n Hematology Oncology Nurse, Med [address] [place] [address] 07/13/2023 [facility] [address] [place] [address] 07/18/2023 Office Visit Cardiology Rosa Tyler PA-C [address] [place] [address] 08/08/2023 Office Visit Hematology Oncology Rubin Rendon MD [address] [facility] [place] [address] 08/17/2023 Office Visit Family Medicine Chelsey Mitchell DO [address] [facility] [address] 10/23/2023 [facility] [address] [place] [address] Scheduled Procedures Name Priority Associated Diagnoses Date/Ti me ESOPHAGOGASTRODUODENOSCOPY ( EGD), FLEXIBLE, TRANSORAL, ENDOSCOPIC ULTRASOUND Recall Duodenal nodule Health Maintenance Due Date Last Done Comments DTaP,Tdap,and Td Vaccines (1 - Tdap) 1954 COVID-19 Vaccine ( - 2022- season) 2023 05/10/2022, 10/01/2021, 05/05/2021, Additional history exists HbA1c 06/10/2023 12/08/2022, 04/05, 10/13/2021, Additional history exists DIABETES-EYE EXAM 10/04/2023 10/03/2022, 06/21/2019 Albumin/Creatinine Ratio 10/18/2023 10/17/2022, 04/05 Depression Screening 10/18/2023 10/17/2022 Diabetic Foot Exam 10/18/2023 10/17/2022, 0 10/07/2020, 08/12/2019, Additional history exists TSH 10/18/2023 10/17/2022, 10/03, 11/26/2020, Additional history exists CKD HGB USE SMARTSET 28480 02/11/202402/10, 12/08/2022, 12/08/2022, Additional history exists CKD PHOS USE SMARTSET 00478 02/11/2024 09/0 01/2023, 10/17/2022, 04/12/2021, Additional history [...] this encounter Medical Devices Implanted Type Area Real Estate Services Coordinator Device Identifier Shelf Expiration Date Model / Serial / Lot Lens 21.0 Mx60 - [id number] Implanted:Qty: 1 on 03/23/2016 by Jax Theodore MD at OR [facility] [employer] : SURGICAL 10/02/2018 MX60-21.0 / [id number] / [id number] Lens 21.5 Mx60 - [id number] - [id number] Implanted:Qty: 1 on 04/20/2016 by Jax Theodore MD at OR [facility] Right: Eye [employer] : SURGICAL 09/02/2018 MX60-21.5 / [id number] / [id number] documented as of this encounter Advance Directives [...] and were consensually agreed upon. Care Teams Institutional Custodian Relationship Specialty Start Date End Date Chelsey Mitchell, [address] [place] [address] PCP - General Family Medicine 07/10/18 documented as of this encounter
--- OUTSIDE RECORDS SUMMARY | 2023-06-11 13:24 | External Medical Summary | Summary of Care ---
Author Name Unknown Organization [facility] Address [address] [place] [address] Phone [phone] Care Team Providers Care Visiting Teacher Name Role Phone Tania Orlando DO Primary Care Provider Reason for Visit * Reason Onset Date Comments Medication Refill 02/21/2023 Encounter Details Date Type Department Care Team Description 02/21/2023 Refill [facility] [address] [place] [facility] [place] [address] Tania Orlando DO [address] [place] [address] Generalized OA; Osteoarthritis of multiple joints, unspecified osteoarthritis type Allergies Active Allergy Reactions Severity Noted Date Comments Bee Venom Abdominal pain,Edema face/lips/tongue High 02/17/2011 Sulfa Antibiotics Rash Medium 12/26/2007 documented as of this encounter (statuses as of 02/24/2023) Medications Medication Sig Dispensed Refills Start Date End Date Status ASPIRIN 81 MG PO TABS one a day 0 Active ONETOUCH ULTRASOFT LANCETS MISC Use one time a day in the morning. E11.9 1 Box Dosing Unit 11 07/19/2018 Active Diclofenac Sodium (VOLTAREN) 1 % gelIndications:Dege [...] 09/02/2022 Active Tradjenta 5 MG Oral Tablet (linaGLIPtin)Indica [...] day 90 Capsule 1 11/30/2022 Active OneTouch Ver[place] In Vitro Strip (Glucose Blood) use as directed to test blood sugar once a day 100 Strip 2 02/01/2023 Active Cefdinir 300 MG Oral Capsule (Omnicef)Indication s:Urinary tract infection without hematuria, site unspecified Take 1 Capsule by mouth in the morning and 1 Capsule before bedtime. Do all this for 10 days. For 10 days.. 20 Capsule 0 02/16/2023 02/27/20 23 Active HYDROcodone-Acetami nophen 5-325 MG Oral TabletIndications:G eneralized OA,Osteoarthritis of multiple joints, unspecified osteoarthritis type Take 1 Tablet by mouth every 6 hours as needed for Pain, Mild. 30 Tablet 0 02/24/2023 Active HYDROcodone-Acetami nophen 5-325 MG Oral TabletIndications:G eneralized OA,Osteoarthritis of multiple joints, unspecified osteoarthritis type Take 1 Tablet by mouth every 6 hours as needed for Pain, Mild. 30 Tablet 0 02/08/2023 02/22/20 23 Discontinu ed(Refill) documented as of this encounter (statuses as of 02/24/2023) Active Problems Problem Noted Date Diabetic peripheral [...] as of this encounter (statuses as of 02/24/2023) Resolved Problems Problem Noted Date Resolved Date [...] as of this encounter (statuses as of 02/24/2023) Immunizations Name Administration Dates Next Due COVID-19 [...] Telephone Encounter - Tania Orlando DO - 02/24/2023 2:06 PM EDTSigned Prescriptions: Disp Refills HYDROcodone-Acetaminophen 5-325 MG Oral Ta*30 Tab*0 Sig: Take 1 Tablet by mouth every 6 hours as needed for Pain, Mild. Authorizing Provider: TANIA ORLANDO * Telephone Encounter - Yareli Barrow [facility] - 02/22/2023 7:52 AM EDTPending Prescriptions: Disp Refills HYDROcodone-Acetaminophen 5-325 MG Oral Ta*30 Tab*0 Sig: Take 1 Tablet by mouth every 6 hours as needed for Pain, Mild. * Telephone Encounter - Yareli Barrow [facility] - 02/22/2023 7:51 AM EDT I have reviewed the patients controlled substance dispensing history in the Prescription Drug Monitoring Program in compliance with the [facility] regulations before prescribing a controlled substance. PDMP checked on 02/22/2023. Pending Prescriptions: Disp Refills HYDROcodone-Acetaminophen 5-325 MG Oral T*30 Tab*0 Sig: Take 1 Tablet by mouth every 6 hours as needed for Pain, Mild. Last Visit: 02/16/2023 (in office), Visit date not found (telemedicine) Next Visit: 08/17/2023 Date medication was last filled: 02/08/23 Date medication is due for refill: 02/15/23 Pharmacy: [id number] Is this [...] approve if appropriate. Thank You, Yareli Barrow [facility] Clinical Pharmacist Centralized Clinical Pharmacy Services (CCPS) (formerly Telepharmacy) [phone] 02/22/2023, 7:51 AM * Telephone Encounter - Christine Colunga CPhT - 02/21/2023 10:07 AM EDT Did you pend patient's preferred pharmacy and medication before forwarding?yes Pharmacy: [id number] Pending Prescriptions: [...] appointment Last date the medication was ordered: 02.08.23 Is this request for a controlled substance?Yes, What was the last refill date 02.08.23 w/ quantity 30and dosage 1q6 prn and Urine Drug Screen Not completed Urine [...] Results Component Value Date/Time CREAT 1.5 (H) 02/10/2023 11:00 AM CREAT 1.5 (H) 04/09/2020 11:08 AM POTASSIUM [...] Cardiothoracic Surgery Diego Bright MD [address] [place] [address] 03/06/2023 Appointment Radiology 03/22/2023 Immunization/Injection Hematology Oncolog y Nurse, [facility] [address] [facility] [address] 04/19/2023 Immunization/Injection Hematology Oncolog y Nurse, Med 4 [address] [facility] [place] [address] 04/28/2023 Office Visit Cardiology Rosa Tyler PA-C [address] [address] 07/13/2023 [facility] [address] [place] [address] 08/08/2023 Office Visit Hematology Oncology Rubin Rendon MD [address] [place] [address] 08/17/2023 Office Visit Family Medicine Tania Orlando, DO [address], [place] [phone] 10/23/2023 Nurse Only [facility], Nurse [facility] [address], [place] [id number] Scheduled Procedures Name Priority Associated Diagnoses Date/Ti [...] Additional history exists CKD HGB USE SMARTSET 92646 02/11/202402/10, 12/08/2022, 12/08/2022, Additional history exists CKD PHOS USE SMARTSET 44070 02/11/2024 09/0 01/2023, 10/17/2022, 04/12/2021, Additional history [...] this encounter Medical Devices Implanted Type Area Scrummaster Device Identifier Shelf Expiration Date Model / Serial / Lot Lens 21.0 Mx60 - [id number] Implanted:Qty: 1 on 03/23/2016 by Jax Theodore MD at OR [facility] [employer] : SURGICAL 10/02/2018 MX60-21.0 / [id number] / [id number] Lens 21.5 Mx60 - [id number] - [id number] Implanted:Qty: 1 on 04/20/2016 by Jax Theodore MD at OR [facility] Right: Eye [employer] : SURGICAL 09/02/2018 MX60-21.5 / [id number] / [id number] documented as of this encounter Visit Diagnoses [...] and were consensually agreed upon. Care Teams Visiting Teacher Relationship Specialty Start Date End Date Tania Orlando, DO [address] [place] [address] PCP - General Family Medicine 07/10/18 documented as of this encounter
--- OUTSIDE RECORDS SUMMARY | 2023-06-11 13:24 | External Medical Summary | Summary of Care ---
Author Name Unknown Organization [facility] Address [address] [place] [address] Phone [phone] Care Team Providers Care Inspector Metal Fabricating Name Role Phone Chelsey Mitchell DO Primary Care Provider Reason for Visit * Reason Onset Date Comments Re-Check Routine check up Medication Administration 02/16/2023 Flu an d/or Pneumo Inj Encounter Details Date Type Department Care Team Description 02/16/[address] [facility] [address] [place] [address] Chelsey Mitchell DO [address] [place] [address] Type 2 diabetes mellitus with stage 3b chronic kidney disease, without long-term current use of insulin (HCC)*; Need for prophylactic vaccination and inoculation against influenza; Urinary tract infection without hematuria, site unspecified; HTN, goal below 130/80; Primary pancreatic neuroendocrine tumor; Aortic valve stenosis, severe; Chronic kidney disease, stage 3b (HCC) Allergies Active Allergy Reactions Severity Noted Date Comments Bee Venom Abdominal pain,Edema face/lips/tongue High 02/17/2011 Sulfa Antibiotics Rash Medium 12/26/2007 documented as of this encounter (statuses as of 02/16/2023) Medications Medication Sig Dispensed Refills Start Date [...] as of this encounter (statuses as of 02/16/2023) Active Problems Problem Noted Date Diabetic peripheral [...] as of this encounter (statuses as of 02/16/2023) Resolved Problems Problem Noted Date Resolved Date [...] as of this encounter (statuses as of 02/16/2023) Immunizations Name Administration Dates Next Due COVID-19 [...] Reading Time Taken Comments Blood Pressure 126/62 02/16/2023 9:43 AM EDT Pulse 64 02/16/2023 9:43 AM EDT Temperature 36.1 C (96.9 F) 02/16/2023 9:43 AM ED T Respiratory Rate 18 02/16/2023 9:43 AM EDT Oxygen Saturation 96% 02/16/2023 9:43 AM EDT Inhaled Oxygen Concentration - - Weight 84.3 kg (185 lb 12.8 oz) 02/16/2023 9:43 AM EDT Height 157.5 cm (5' 2") 02/16/2023 9:43 AM EDT Body Mass Index 33.98 02/16/2023 9:43 AM EDT documented in this encounter Progress Notes * Chelsey Mitchell, DO - 02/16/2023 10:02 AM EDT Subjective: Magdalena Payan is a 87 year old female. Chief Complaint Patient presents with Re-Check Routine check up Medication Administration Flu and/or Pneumo Inj HPI: 86 year old female with history of Hypertension, Hypothyroidism,aortic stenosis that has progressed to severe, type 2 diabetes, iron deficiency anemia, diabetic neuropathy, May of 2017 had anemia, and scopes showed Duodenal Neuroendocrine tumor, Jun had lymph node biopsy that showed on CT scan, and this showed malignant Metastatic Neuroendocrine Tumor, and she has been followingwith oncology and remains on Sandostatin LAR 20 mg per month. 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 Since I have seen her she had left heart cath in prep for aortic valve replacement which will take place next month. Has some bruising over the R wrist area. For her diabetes Her lat hba1c was 7.4. She is taking Tradjenta only States her toes are numb both feet. She would benefit from diabetic shoes to help with her numbnessin her feet. For her hx of neuroendocrine tumor had PET scan, and pancreatic tumor, and is still on chemo 1 timea month. Sees oncology for this. Having burning with urination, 2 days ago started. She did have a UTI in December and was on E coli. No chest pain and her breathing is stable. Takes vicodin as needed for her pain. PHM: Patient Active Problem List Diagnosis Code [...] Aortic valve stenosis, severe I35.0 Tachy-bryn syndrome ([facility]) I49.5 Current Outpatient Medications Medication Sig Dispense Refill ASPIRIN 81 MG PO TABS one a day ONETOUCH ULTRASOFT LANCETS MISC Use one time a day in the morning. E11.9 1 Box Dosing Unit 11 Diclofenac Sodium (VOLTAREN) 1 % gel Place 2 g topically on the skin 2 times a day. To affected area as directed. 100 g 5 Vitamin D (Cholecalciferol) 10 MCG (400 UNIT) Oral Tablet Chewable Take 1 Tablet by mouth in the morning. Vitamin C 100 MG Oral Tablet Chewable Take 1 Tablet by mouth in the morning. Adult Gummy Oral Tablet Chewable Take 2 Each by mouth daily. Acetaminophen 500 MG Oral Tablet (Tylenol) Take 1 Tablet by mouth every 6 hours as needed. Meclizine HCl 12.5 MG Oral Tablet (Antivert) TAKE ONE TABLET BY MOUTH THREE TIMES DAILY if needed for dizziness 30 Tablet 1 Metoprolol Tartrate 25 MG Oral Tablet (Lopressor) [...] needed for Pain, Mild. 30 Tablet 0 No current facility-administered medications for this visit. Review of patient's allergies indicates: Allergen Reactions Bee Venom Abdominal pain and Edema face/lips/tongue Sulfa Antibiotics Rash Objective: BP 126/62 (BP Site: Right Arm, BP Position: Sitting, BP Cuff Size: Regular) | Pulse 64 | Temp 36.1 C (96.9 F) (Temporal Artery) | Resp 18 | Ht 1.575 m (5' 2") | Wt 84.3 kg (185 lb 12.8 oz) | OwL693% | BMI 33.98 kg/m | BSA 1.92 m Physical Exam: General: alert, healthy, and no distress Heart: regular rate & rhythm, no gallops, and 3/6 YOSI Lungs: chest symmetric with normal AP diameter, no chest deformities noted, no chest wall tenderness, lungs clear to auscultation Abdomen: abdomen soft, non-tender, normal bowel sounds, and no masses or organomegaly Extremities: no edema ASSESSMENT/PLAN: Type 2 diabetes mellitus with stage 3b chronic kidney disease, without long-term current use of insulin (HCC) (Primary) Need for prophylactic vaccination and inoculation against influenza - INFLUENZA VACC, QUAD, HIGH DOSE (FLUZONE HD) Urinary tract infection without hematuria, site unspecified - Cefdinir 300 MG Oral Capsule (Omnicef); Take 1 Capsule by mouth in the morning and 1 Capsule before bedtime. Do all this for 10 days. For 10 days.. - URINALYSIS, POINT OF CARE (ENTER/EDIT) - CULTURE, URINE, QUANTITATIVE HTN, goal below 130/80 Primary pancreatic neuroendocrine tumor Aortic valve stenosis, severe Chronic kidney disease, stage 3b (HCC) Follow Up: Return in about 6 months (around 08/17/2023). Chelsey Mitchell DO * PRITI Larsen - 02/16/2023 9:45 AM EDT PRE - ADMINISTRATION DOCUMENTATION Are you experiencing any cold symptoms or fever? No Have you had Guillain-Bosler Syndrome (an illness that causes paralysis) within the last 6 weeks? No Have you had the flu shot in the past? YES Have you ever had a reaction to the flu shot? No PRITI Larsen, 02/16/2023 9:45 AM Immunization Administration Documentation Time Out Procedure Performed: Yes Patient Identified (Ask Name/Date of ): Yes Does the patient have a fever greater than 101 degrees today? No Patient allergic to latex? No VFC Stock: No Immunization(s) verified: Yes, Immunization Name: Flu, VIS Sheet(s) given: Yes Verified Side and Site: Yes Verified Shot(s) with Parent(s)/Patient: Yes documented in this encounter Nursing Notes * PRITI Larsen - 02/16/2023 9:43 AM EDT Magdalena Payan is a 87 year old female who presents today for Chief Complaint Patient presents with Re-Check Routine check up documented in this encounter Plan of Treatment Upcoming Encounters Date Type Specialty Care Team Description 02/22/2023 Immunization/Injection Hematology Oncolog y Nurse, Med [address] [place] [address] 03/06/2023 Office Visit Cardiothoracic Surgery Diego Bright MD [address] [place] [address] 03/06/2023 Appointment Radiology 03/22/2023 Immunization/Injection Hematology Oncolog y Nurse, Med [address] [place] [address] 04/19/2023 Immunization/Injection Hematology Oncolog y Nurse, Med 4 [address] [facility] [place] [address] 04/28/2023 Office Visit Cardiology Rosa Tyler PA-C [address] [place] [address] 07/13/2023 Cardiac Studies Cardiology [facility] [address] [place] [address] 08/08/2023 Office Visit Hematology Oncology Rubin Rendon MD [address] [facility] [place] [address] 08/17/2023 Office Visit Family Medicine Chelsey Mitchell, [address] [place] [address] 10/23/2023 Nurse Only [facility], [facility] [address] [place] [address] Pending Results Name Type Priority Associated Diagnoses Date /Time CULTURE, URINE, QUANTITATIVE Lab Routine Urinary tract infection without hematuria, site unspecified 02/16/2023 10:44 AM EDT Scheduled Procedures Name Priority Associated Diagnoses Date/Ti [...] Additional history exists CKD HGB USE SMARTSET 66105 02/11/202402/10, 12/08/2022, 12/08/2022, Additional history exists CKD PHOS USE SMARTSET 36607 02/11/2024 09/0 01/2023, 10/17/2022, 04/12/2021, Additional history [...] this encounter Medical Devices Implanted Type Area Bulk Picker Device Identifier Shelf Expiration Date Model / Serial / Lot Lens 21.0 Mx60 - [id number] Implanted:Qty: 1 on 03/23/2016 by Jax Theodore MD at OR [facility] [employer] : SURGICAL 10/02/2018 MX60-21.0 / [id number] / [id number] Lens 21.5 Mx60 - [id number] - [id number] Implanted:Qty: 1 on 04/20/2016 by Jax Theodore MD at OR [facility] Right: Eye [employer] : SURGICAL 09/02/2018 MX60-21.5 / [id number] / [id number] documented as of this encounter Procedures Procedure Name Priority Date/Time Associated Diagnosis Comments URINALYSIS, POINT OF CARE (ENTER/EDIT) Routine 02/16/2023 10:49 AM EDT Urinary tract infection without hematuria, site unspecified documented in this encounter Results * (ABNORMAL) URINALYSIS, POINT OF CARE (ENTER/EDIT) (02/16/2023 10:49 AM EDT) Color, Urine Yellow Yellow or Light Yellow Clarity, Urine Slightly Cloudy Clear Glucose, Urine Negative Negative mg/dL Bilirubin, Urine Negative Negative Ketone, Urine Negative Negative mg/dL Specific [place], Urine 1.025 1.003 - 1.030 Blood, Urine Negative Negative pH, Urine 5.5 5.0 - 7.5 units Protein, Urine Negative Negative mg/dL Urobilinogen, Urine 0.2 0.2 - 1.0 mg/dL Nitrite, Urine Negative Negative Esterase, Urine Small(A) Negative Urine 02/16/2023 10:4 9 AM EDT Chelsey Mitchell DO LAB POINT OF CARE TE ST ENTER/EDIT ORDERABLES documented in this encounter Visit Diagnoses Diagnosis Type 2 diabetes mellitus with stage 3b chronic kidney disease, without long-term current use of insulin (HCC)- Primary Need for prophylactic vaccination and inoculation against influenza Urinary tract infection without hematuria, site unspecified HTN, goal below 130/80 Unspecified essential hypertension 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 Care Teams Inspector Metal Fabricating Relationship Specialty Start Date End Date Chelsey Mitchell, [address] [place] [address] PCP - General Family Medicine 07/10/18 documented as of this encounter
--- OUTSIDE RECORDS SUMMARY | 2023-06-11 13:24 | External Medical Summary | Summary of Care ---
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 Procedures [place] OCTREOTIDE INJECTION, DEPOT Rubin Rendon MD [address] [place] [address] Anc Hem/Onc [facility] [address] [facility] [place] [address] Referral ID Status Reason Start Date Expiration Date V isits Requested Visits Authorized [id number] Authorized 03/20/2023 03/20/2024 99 13 Encounter Details Date Type Department Care Team Description 03/22/2023 Immunization/I njection Hematology/Oncology Treatment, [place] [address] [facility] [address] [address] [place] [address] Nurse, Med [address] [facility] [place], [place] [id number] Primary malignant neuroendocrine neoplasm of duodenum (HCC)*; Primary pancreatic neuroendocrine tumor Allergies Active Allergy Reactions Severity Noted Date Comments Bee Venom Abdominal pain,Edema face/lips/tongue High 02/17/2011 Sulfa Antibiotics Rash Medium 12/26/2007 documented as of this encounter (statuses as of 03/22/2023) Medications Medication Sig Dispensed Refills Start Date [...] for dizziness 30 Tablet 1 06/08/2021 Active Additional Information Patient not taking.Reported on 03/06/2023 Metoprolol Tartrate 25 MG Oral Tablet (Lopressor)Indicatio [...] Pain, Mild. 30 Tablet 0 02/24/2023 Active documented as of this encounter (statuses as of 03/22/2023) Active Problems Problem Noted Date Diabetic peripheral neuropathy Aortic valve stenosis, severe 12/08/2022 Tachy-bryn syndrome [...] as of this encounter (statuses as of 03/22/2023) Resolved Problems Problem Noted Date Resolved Date [...] as of this encounter (statuses as of 03/22/2023) Immunizations Name Administration Dates Next Due COVID-19 [...] on file documented as of this encounter Nursing Notes * Kate Sweet, NU - 03/22/2023 10:10 AM EDT Room 3. Pt arrived for Sandostatin 20mg injection. Administered in L dorsogluteal. Pt tolerated well. To return in 4 weeks. Discharged in stable condition. documented in this encounter Plan of Treatment Upcoming Encounters Date Type Specialty Care Team Description 04/19/2023 Immunization/Injecti o n Hematology Oncology Nurse, Med 4 [address] [facility] [place], [place] [address] 07/13/2023 Cardiac Studies Cardiology [facility] [address] [place] [address] 07/18/2023 Office Visit Cardiology Rosa Tyler PA-C [address] [place] [address] 08/08/2023 Office Visit Hematology Oncology Rubin Rendon MD [address] [facility] [place], [place] [address] 08/17/2023 Office Visit Family Medicine Chelsey Mitchell DO [address] [place] [address] 10/23/2023 Nurse Only Ancillary [place], Nurse [facility] [address] [place] [address] Scheduled Procedures Name Priority Associated Diagnoses Date/Ti me ESOPHAGOGASTRODUODENOSCOPY ( EGD), FLEXIBLE, TRANSORAL, ENDOSCOPIC ULTRASOUND Recall Duodenal nodule Health Maintenance Due Date Last Done Comments DTaP,Tdap,and Td Vaccines (1 - Tdap) 1954 COVID-19 Vaccine (2022-24 season) 2023 05/10/2022, 10/01/2021, 05/05/2021, Additional history exists HbA1c 06/10/2023 12/08/2022, 04/05, 10/13/2021, Additional history exists DIABETES-EYE EXAM 10/04/2023 10/03/2022, 06/21/2019 Albumin/Creatinine Ratio 10/18/2023 10/17/2022, 04/05 Depression Screening 10/18/2023 10/17/2022 Diabetic Foot Exam 10/18/2023 10/17/2022, 0 10/07/2020, 08/12/2019, Additional history exists TSH 10/18/2023 10/17/2022, 10/03, 11/26/2020, Additional history exists CKD HGB USE SMARTSET 16035 02/11/202402/10, 12/08/2022, 12/08/2022, Additional history exists CKD PHOS USE SMARTSET 37120 02/11/2024 09/0 01/2023, 10/17/2022, 04/12/2021, Additional history [...] this encounter Medical Devices Implanted Type Area Liner Reroll Tender Device Identifier Shelf Expiration Date Model / Serial / Lot Lens 21.0 Mx60 - [id number] Implanted:Qty: 1 on 03/23/2016 by Jax Theodore MD at OR [facility] [employer] : SURGICAL 10/02/2018 MX60-21.0 / [id number] / [id number] Lens 21.5 Mx60 - [id number] - [id number] Implanted:Qty: 1 on 04/20/2016 by Jax Theodore MD at OR [facility] Right: Eye [employer] : SURGICAL 09/02/2018 MX60-21.5 / [id number] / [id number] documented as of this encounter Visit Diagnoses Diagnosis Primary malignant neuroendocrine neoplasm of duodenum (HCC)- Primary 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 Care Teams Planner Relationship Specialty Start Date End Date Chelsey Mitchell, [address] [place] [address] PCP - General Family Medicine 07/10/18 documented as of this encounter
--- OUTSIDE RECORDS SUMMARY | 2023-06-11 13:24 | External Medical Summary | Summary of Care ---
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 Procedures [place] OCTREOTIDE INJECTION, DEPOT Rubin Rendon MD [address] [place] [address] Anc Hem/Onc [place] 200 [facility] [place] [address] Referral ID Status Reason Start Date Expiration Date V isits Requested Visits Authorized [id number] Authorized 07/22/2022 07/22/2023 99 99 Encounter Details Date Type Department Care Team Description 02/22/2023 Immunization/I njection Hematology/Oncology Treatment, [place] [address] [place] [address] Nurse, Med 4 [address] [place] [address] Primary malignant neuroendocrine neoplasm of duodenum (HCC)*; [...] Nursing Notes * Kate Sweet LPN - 02/22/2023 10:27 AM EDT Room 4. Pt arrived for Sandostatin 20mg injection. Administered in R dorsogluteal. Pt tolerated well. To return in 4 weeks. Discharged in stable condition. documented in this encounter Plan of Treatment Upcoming Encounters Date Type Specialty Care Team Description 03/06/2023 Office Visit Cardiothoracic Surgery Diego Bright MD [address] [place] [address] 03/06/2023 Appointment Radiology 03/22/2023 Immunization/Injection Hematology Oncolog y Nurse, Med 4 [address] [facility] [place] [address] 04/19/2023 Immunization/Injection Hematology Oncolog y Nurse, Med 4 [address] [facility] [place] [address] 04/28/2023 Office Visit Cardiology Rosa Tyler PA-C [address] [place] [address] 07/13/2023 Cardiac Studies Cardiology Flex Field [facility] [address] [place] [address] 08/08/2023 Office Visit Hematology Oncology Rubin Rendon MD [address] [place] [address] 08/17/2023 Office Visit Family Medicine Chelsey Mitchell, DO [address] [facility] [place] [phone] 10/23/2023 Nurse Only Ancillary Nurse [place] [facility] [address] [place] [id number] Scheduled Procedures Name Priority Associated Diagnoses Date/Ti [...] Additional history exists CKD HGB USE SMARTSET 58529 02/11/202402/10, 12/08/2022, 12/08/2022, Additional history exists CKD PHOS USE SMARTSET 46994 02/11/2024 09/0 01/2023, 10/17/2022, 04/12/2021, Additional history [...] this encounter Medical Devices Implanted Type Area Operations Manager/Coordinator Device Identifier Shelf Expiration Date Model / Serial / Lot Lens 21.0 Mx60 - [id number] Implanted:Qty: 1 on 03/23/2016 by Jax Theodore MD at OR [facility] [employer] : SURGICAL 10/02/2018 MX60-21.0 / [id number] / [id number] Lens 21.5 Mx60 - [id number] - [id number] Implanted:Qty: 1 on 04/20/2016 by Jax Theodore MD at OR [facility] Right: Eye [employer] : SURGICAL 09/02/2018 MX60-21.5 / [id number] / [id number] documented as of this encounter Visit Diagnoses [...] 20 mg 20 mg, Intramuscular, ONCE, On Mon02/22/23 at 1115, For 1 dose, Given 02/22/2023 10:09 AM EDT 20 mg Dorsogluteal Right documented in this encounter Advance Directives Latest [...] and were consensually agreed upon. Care Teams Professor Of Historical Theology Relationship Specialty Start Date End Date Chelsey Mitchell, [address] [place] [address] PCP - General Family Medicine 07/10/18 documented as of this encounter
--- OUTSIDE RECORDS SUMMARY | 2023-06-11 13:24 | External Medical Summary | Summary of Care ---
Author Name Unknown Organization [facility] Address [address] [place] [address] Phone [phone] Care Team Providers Care Grape Crusher Name Role Phone Chelsey Mitchell DO Primary Care Provider Reason for Referral * Precert (Within 10 days (routine)) - Closed Specialty Diagnoses / Procedures Referred By Contac t Referred To Contact Radiology Diagnoses Aortic stenosis Procedures CTA TAVR GATED STUDY CTA TAVR GATED STUDY Payam Amor MD [address] [place] [address] Referral ID Status Reason Start Date Expiration Date Visits Re quested Visits Authorized [id number] Closed 02/14/2023 999 999 Reason for Visit * Precert (Within 10 days (routine)) - Closed Specialty Diagnoses / Procedures Referred By Contac t Referred To Contact Radiology Diagnoses Aortic stenosis Procedures CTA TAVR GATED STUDY CTA TAVR GATED STUDY Payam Amor MD [address] [place] [address] Referral ID Status Reason Start Date Expiration Date Visits Re quested Visits Authorized [id number] Closed 02/14/2023 999 999 Encounter Details Date Type Department Care Team Description 03/06/2023 Hospital Encounter Radiology, [place] [address] [place] [address] Arrived Allergies Active Allergy Reactions Severity Noted Date Comments Bee Venom Abdominal pain,Edema face/lips/tongue High 02/17/2011 Sulfa Antibiotics Rash Medium 12/26/2007 documented as of this encounter (statuses as of 03/07/2023) Medications Medication Sig Dispensed Refills Start Date [...] as of this encounter (statuses as of 03/07/2023) Active Problems Problem Noted Date Diabetic peripheral [...] as of this encounter (statuses as of 03/07/2023) Resolved Problems Problem Noted Date Resolved Date [...] as of this encounter (statuses as of 03/07/2023) Immunizations Name Administration Dates Next Due COVID-19 [...] Hematology Oncology Nurse, Med 4 [address] [place] [address] 04/19/2023 Immunization/Injecti o n Hematology Oncology Nurse, Med [address] [place] [address] 07/13/2023 Cardiac Studies Cardiology [place], Pacer [facility] [address] [place] [address] 07/18/2023 Office Visit Cardiology Rosa Tyler PA-C [address] [place] [address] 08/08/2023 Office Visit Hematology Oncology Rubin Rendon MD [address] [facility] [place] [address] 08/17/2023 Office Visit Family Medicine Chelsey Mitchell, DO [address] [place] [address] 10/23/2023 Nurse Only Ancillary [facility] [address] [place] [address] Pending Results Name Type Priority Associated Diagnoses Date /Time CTA TAVR GATED STUDY Medical Imaging Routine Aortic stenosis 03/06/2023 4:08 PM EDT Scheduled Orders Name Type Priority Associated Diagnoses Orde r Schedule CTA TAVR GATED STUDY Medical Imaging Routine Aortic stenosis 1 Occurrences starting 03/06/2023 until 03/06/2023 Scheduled Procedures Name Priority Associated Diagnoses Date/Ti [...] Additional history exists CKD HGB USE SMARTSET 31468 02/11/202402/10, 12/08/2022, 12/08/2022, Additional history exists CKD PHOS USE SMARTSET 30411 02/11/2024 09/0 01/2023, 10/17/2022, 04/12/2021, Additional history [...] this encounter Medical Devices Implanted Type Area Wrapping Machine Operator Device Identifier Shelf Expiration Date Model / Serial / Lot Lens 21.0 Mx60 - [id number] Implanted:Qty: 1 on 03/23/2016 by Jax Theodore MD at OR [facility] [employer] : SURGICAL 10/02/2018 MX60-21.0 / [id number] / [id number] Lens 21.5 Mx60 - [id number] - [id number] Implanted:Qty: 1 on 04/20/2016 by Jax Theodore MD at OR [facility] Right: Eye [employer] : SURGICAL 09/02/2018 MX60-21.5 / [id number] / [id number] documented as of this encounter Procedures Procedure Name Priority Date/Time Associated Diagnosis Comments CREATININE ISTAT, POINT OF CARE JOHANA 03/06/2023 3:17 PM EDT documented in this encounter Results * (ABNORMAL) CREATININE ISTAT, POINT OF CARE (03/06/2023 3:17 PM EDT) Creatinine i-STAT 1.6(H) 0.5 - 1.0 mg/dL 03/06/2023 3:20 PM EDT [facility] [employer] Blood 03/06/2023 3:17 PM EDT 03/06/2023 3:20 PM EDT No Physician Data Unknown LAB POINT OF C ARE TEST DOCKED DEVICE UNSOLICITED RESULTS [facility] [address] [place] [address] documented in this encounter Visit Diagnoses Diagnosis Aortic stenosis Aortic valve disorders documented in this encounter Administered Medications Inactive Administered Medications - up to 3 most recent administrations Medication Order MAR Action Action Date Dose Rate Site Ioversol (Optiray 350) 74 % inj 100 mL 100 mL, Intravenous, ONCE, On Mon03/06/23 at 1611, For 1 dose, Radiology Medication Routing (Non-IR) Given 03/06/2023 4:11 PM EDT 89 mL documented in this encounter Advance Directives Latest [...] and were consensually agreed upon. Care Teams Grape Crusher Relationship Specialty Start Date End Date Chelsey Mitchell, [address] [place] [address] PCP - General Family Medicine 07/10/18 documented as of this encounter
--- OUTSIDE RECORDS SUMMARY | 2023-06-11 13:24 | External Medical Summary | Summary of Care ---
Author Name Unknown Organization [facility] Address [address] [place] [address] Phone [phone] Care Team Providers Care Manager Php Name Role Phone Chelsey Mitchell DO Primary Care Provider Reason for Visit * Reason Onset Date Comments Films 03/30/2023 Encounter Details Date Type Department Care Team (Late st Contact Info) Description 03/30/2023 Telephone Radiology [place] [address] [place] [address] Payam Amor MD [address] [place] [address] Films Allergies Active Allergy Reactions Criticality Noted Date Comments Bee Venom Abdominal pain,Edema face/lips/tongue High 02/17/2011 Sulfa Antibiotics Rash Medium 12/26/2007 documented as of this encounter (statuses as of 03/30/2023) Medications Medication Sig Dispensed Refills Start Date [...] the day 90 Capsule 1 11/30/2022 Active OKWave Verio In Vitro Strip (Glucose Blood) use as directed to test blood sugar once a day 100 Strip 2 02/01/2023 Active HYDROcodone-Acetamin ophen 5-325 MG Oral TabletIndications:Ge neralized OA,Osteoarthritis of multiple joints, unspecified osteoarthritis type Take 1 Tablet by mouth every 6 hours as needed for Pain, Mild. 30 Tablet 0 02/24/2023 Active documented as of this encounter (statuses as of 03/30/2023) Active Problems Problem Noted Date Diagnosed Date [...] as of this encounter (statuses as of 03/30/2023) Resolved Problems Problem Noted Date Diagnosed Date [...] as of this encounter (statuses as of 03/30/2023) Immunizations Name Administration Dates Next Due COVID-19 mRNA, LNP-s, No Pre serve, 2-Dose Series ([facility]) 10/01/2021,05/05/2021,09/10/2020,08/03 Covid-19, Mrna, Lnp-s, Pf, B ivalent, 30 Mcg, IM, 12 yrs and above ([facility]) 05/10/2022 Pneumococcal Conjugate Vacc, 13 Valent (Prevnar) [...] encounter Miscellaneous Notes * Telephone Encounter - DIAZ Dean - 03/30/2023 1:45 PM EDT Received request from Елена Soliman for 03/06/23 CT images be put on disc for patients upcoming appointment. [place] Authorization on file to release. CD created and handed to Елена. documented in this encounter Plan of Treatment Upcoming Encounters Date Type Department Care Team (Latest Contact Info) Description 04/06/2023 8:00 AM EDT Hospital Encounter CRS Waiting [facility], Cardiac Recovery Suite Waiting Unit, H [address] [place] [address] Payam Amor MD [address] [place] [address] 04/06/2023 8:00 AM EDT - 04/06/2023 9:10 AM EDT Surgery CRS Waiting [facility] Cardiac Recovery Suite Waiting Unit, H [address] [place] [address] Payam Amor MD [address] [place] [address] REPLACE AORTIC VALVE, PERCUTANEOUS FEMORAL 04/06/2023 8:00 AM EDT Office Visit Cardiology [facility] Advanced Medicine, [place] [address] [place] [address] [place], Cardiac Recovery [facility] [address] [place] [address] 04/19/2023 10:00 AM EST Immunization/Injec tion Hematology/Oncolog y Treatment, [place] [address] [place] [address] Nurse, Med [address] [place] [address] 07/13/2023 11:00 AM EST Cardiac Studies Cardiology, [facility] [address] [facility] [place] [address] Flex Field Clinic [facility] [address] [facility] [place] [address] 07/18/2023 11:00 AM EST Office Visit Cardiology, [facility] [address] [facility] [place] [address] Rosa Tyler PA-C [address] [facility] [place] [address] 08/08/2023 11:15 AM EST Office Visit Hematology/Oncolog y [facility] [address] [place] [address] Rubin Rendon MD 200 [facility] [place] [address] 08/17/2023 9:30 AM EDT Office Visit Family [facility], [place] [address] [facility] [address] Chelsey Mitchell DO [address] [facility] [place] [address] 10/23/2023 10:00 AM EDT Nurse Only Ancillary Department, [place] [address] [facility], [place] [address] [place], Nurse [facility] [address] [place] [address] Scheduled Procedures Name Priority Associated Diagnoses Date/Ti [...] Additional history exists CKD HGB USE SMARTSET 57673 02/11/202402/10, 12/08/2022, 12/08/2022, Additional history exists CKD PHOS USE SMARTSET 78307 02/11/2024 09/0 01/2023, 10/17/2022, 04/12/2021, Additional history [...] this encounter Medical Devices Implanted Type Area Hand Inserter Operator Device Identifier Shelf Expiration Date Model / Serial / Lot Lens 21.0 Mx60 - [id number] Implanted:Qty: 1 on 03/23/2016 by Jax Theodore MD at OR [facility] [employer]OM[employer] : SURGICAL 10/02/2018 MX60-21.0 / [id number] / [id number] Lens 21.5 Mx60 - [id number] - [id number] Implanted:Qty: 1 on 04/20/2016 by Jax Theodore MD at [facility] Right: Eye [employer]OM[employer] : SURGICAL 09/02/2018 MX60-21.5 / [id number] / [id number] documented as of this encounter Advance Directives [...] were consensually agreed upon. Care Teams Manager Php Relationship Specialty Start Date End Date Chelsey Mitchell DO [address] [facility] [place] [address] PCP - General Family Medicine 07/10/18 documented as of this encounter
--- OUTSIDE RECORDS SUMMARY | 2023-06-11 13:25 | External Medical Summary | Summary of Care ---
Author Name Unknown Organization [facility] Address [address] [place] [address] Phone [phone] Care Team Providers Care Ops Manager Name Role Phone Chelsey Mitchell DO Primary Care Provider [phone] Reason for Referral * Precert (Within 10 days (routine)) - Pending Review Specialty Diagnoses / Procedures Referred By Contac t Referred To Contact Radiology Diagnoses Aortic stenosis Procedures CTA TAVR GATED STUDY CTA TAVR GATED STUDY Payam Amor MD [address] [place] [address] Referral ID Status Reason Start Date Expiration Date V isits Requested Visits Authorized [id number] Pending Review 02/14/2023 999 999 Encounter Details Date Type Department Care Team Description 01/31/2023 Orders Only Cardiology [facility] for [facility] [address] [place] [address] Kellie Soliman, RN Aortic stenosis*; Aortic valve stenosis Allergies Active Allergy Reactions Severity Noted Date Comments Bee Venom Abdominal pain,Edema face/lips/tongue High 02/17/2011 Sulfa Antibiotics Rash Medium 12/26/2007 documented as of this encounter (statuses as of 01/31/2023) Medications Medication Sig Dispensed Refills Start Date [...] for dizziness 30 Tablet 1 06/08/2021 Active OneTouch Verio In Vitro Strip (Glucose Blood) use as directed to test blood sugar once a day 100 Strip 3 03/08/2022 Active Metoprolol Tartrate 25 MG Oral Tablet [...] the day 90 Capsule 1 11/30/2022 Active HYDROcodone-Acetamin ophen 5-325 MG Oral TabletIndications:Os teoarthritis of multiple joints, unspecified osteoarthritis type,Generalized OA Take 1 Tablet by mouth every 6 hours as needed for Pain, Mild. 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 Type 2 diabetes mellitus wit h stage [...] as of this encounter (statuses as of 01/31/2023) Resolved Problems Problem Noted Date Resolved Date Type 2 diabetes mellitus wit h stage 3b chronic kidney disease, with long-term current use of insulin 10/13/2020 023 Overview: Per CKD protocol Aortic valve stenosis, moderate 11/29/2019 12/08/2022 Diabetes mellitus without complication 9 10/22/2018 Hypertensive [...] as of this encounter (statuses as of 01/31/2023) Immunizations Name Administration Dates Next Due COVID-19 mRNA, LNP-s, No Pre serve, 2-Dose Series ([employer]) 10/01/2021,05/05/2021,09/10/2020,08/03 Covid-19, Mrna, Lnp-s, Pf, B ivalent, [...] as of this encounter Miscellaneous Notes * Addendum Note - Kellie Soliman RN - 01/31/2023 1:07 PM EDTAddended by: KELLIE SOLIMAN on: 01/31/2023 01:07 PM Modules accepted: Orders documented in this encounter Plan of Treatment Upcoming Encounters Date Type Specialty Care Team Description 02/07/2023 Office Visit Hematology Oncology Rubin Rendon MD [address] [place] [address] 02/10/2023 Hospital Encounter Cardiac Electrical Appliance Preparer Miles Zuleta, [address] [place] [address] 02/10/2023 Surgery Cardiac Electrical Appliance Preparer Miles Zuleta, DO [address] [place] [address] CORONARY ANGIOGRAPHY W/LEFT HEART CATH 02/10/2023 Office Visit Cardiology [place], Cardiac Recovery Khanh [address], [place] [id number] 02/16/2023 Office Visit Family Medicine Chelsey Mitchell, [address] [place] [address] 02/22/2023 Immunization/Inject ion Hematology Oncology Nurse, Med 4 [address] [place] [address] 03/06/2023 Office Visit Cardiothoracic Surgery Diego Bright MD [address], [place] [id number] 03/06/2023 Appointment Radiology 03/22/2023 Immunization/Inject ion Hematology Oncology Nurse, Med 4 [address] [place] [address] 04/19/2023 Immunization/Inject ion Hematology Oncology Nurse, Med 4 [address] [place] [address] 04/28/2023 Office Visit Cardiology Rosa Tyler PA-C [address] [place] [address] 07/13/2023 Cardiac Studies Cardiology [place] [address] [place] [address] 10/23/2023 Nurse Only Ancillary Nurse [facility] [address] [facility] [place] [address] Scheduled Orders Name Type Priority Associated Diagnoses Order Schedule CREATININE ISTAT, POINT OF CARE Point of Care Testing - Unsolicited Results Routine Aortic stenosis Ordered: 01/31/2023 CTA TAVR GATED STUDY Medical Imaging Routine Aortic stenosis Expected: 02/14/2023, Expires: 04/02/2023 Scheduled Procedures Name Priority Associated Diagnoses Date/Ti me CORONARY ANGIOGRAPHY W/LEFT HEART CATH Aortic stenosis 02/10/2023 10:00 AM EDT ESOPHAGOGASTRODUODENOSCOPY ( EGD), FLEXIBLE, TRANSORAL, ENDOSCOPIC ULTRASOUND Recall Duodenal nodule Health Maintenance Due Date Last Done Comments DTaP,Tdap,and Td Vaccines (1 - Tdap) 1954 Influenza Vaccine (FLU shot) (#1) 2023 04/15/2022, 03/18/2021, 04/09/2020, Additional history exists HbA1c 06/10/2023 12/08/2022, 04/05, 10/13/2021, Additional history exists DIABETES-EYE EXAM 10/04/2023 10/03/2022, 06/21/2019 Albumin/Creatinine Ratio 10/18/2023 10/17/2022, 04/05 CKD PHOS USE SMARTSET 41974 10/18/202310/03, 04/12/2021, 02/28/2020, Additional history exists DIABETES-FOOT EXAM 10/18/2023 10/17/2022, 0 10/07/2020, 08/12/2019, Additional history exists Depression Screening, Annual for Pts 12 and Over 10/18/2023 10/17/2022 TSH 10/18/2023 10/17/2022, 10/03, 11/26/2020, Additional history exists CKD HGB USE SMARTSET 83292 12/09/202312/08, 12/08/2022, 08/15/2022, Additional history exists DXA Scan 11/22/2029 11/22/2022, 03/05, 01/24/2011, Additional history exists Pneumococcal Vaccine: 65+ Years Completed 06/24/2015, 04/29/2013 Zoster Vaccines Completed 07/19/2018, 01/04, 05/09/2014 COVID-19 Vaccine Completed 05/10/2022, , 05/05/2021, Additional history exists GARDASIL-HPV IMMUNIZATION SERIES Aged Out No longer eligible based on patient's age to complete this topic Hepatitis B Aged Out No longer eligi ble based on patient's age to complete this topic MENINGOCOCCAL (MENACTRA/MENVEO) Aged Out No longer eligible based on patient's age to complete this topic documented as of this encounter Medical Devices Implanted Type Area Solution Analyst Device Identifier Shelf Expiration Date Model / Serial / Lot Lens 21.0 Mx60 - [id number] Implanted:Qty: 1 on 03/23/2016 by Jax Theodore MD at OR [facility] [employer] : SURGICAL 10/02/2018 MX60-21.0 / [id number] / [id number] Lens 21.5 Mx60 - [id number] - [id number] Implanted:Qty: 1 on 04/20/2016 by Jax Theodore MD at OR [facility] Right: Eye [employer] : SURGICAL 09/02/2018 MX60-21.5 / [id number] / [id number] documented as of this encounter Visit Diagnoses Diagnosis Aortic stenosis- Primary Aortic valve disorders Aortic valve stenosis Aortic valve disorders Aortic stenosis Aortic valve disorders documented in [...] and were consensually agreed upon. Care Teams Ops Manager Relationship Specialty Start Date End Date Chelsey Mitchell, [address] [place] [address] PCP - General Family Medicine 07/10/18 documented as of this encounter
--- OUTSIDE RECORDS SUMMARY | 2023-06-11 13:25 | External Medical Summary | Summary of Care ---
Author Name Unknown Organization [facility] Address [address] [place] [address] Phone [phone] Care Team Providers Care Personal Service Representative Name Role Phone Chelsey Mitchell DO Primary Care Provider [phone] Reason for Referral * Precert (Within 10 days (routine)) - Pending Review Specialty Diagnoses / Procedures Referred By Contac t Referred To Contact Radiology Diagnoses Aortic stenosis Procedures CTA TAVR GATED STUDY CTA TAVR GATED STUDY Payam Amor MD [address] [place] [address] Referral ID Status Reason Start Date Expiration Date V isits Requested Visits Authorized [id number] Pending Review 02/14/2023 999 999 Encounter Details Date Type Department Care Team Description 01/31/2023 Orders Only Cardiology [facility] for [facility] [address] [place] [address] Kellie Soliman, RN Aortic stenosis*; [...] mRNA, LNP-s, No Pre serve, 2-Dose Series ([employer]) 10/01/2021,05/05/2021,09/10/2020,08/03 Covid-19, Mrna, Lnp-s, Pf, B ivalent, [...] Visit Hematology Oncology Rubin Rendon MD [address] [place] [address] 02/16/2023 Office Visit Family Medicine Chelsey Mitchell DO [address] [place] [address] 02/22/2023 Immunization/Injecti on Hematology Oncology Nurse, Med [address] [place] [address] 03/06/2023 Office Visit Cardiothoracic Surgery Diego Bright MD [address] [place], [place] [address] 03/22/2023 Immunization/Injecti on Hematology Oncology Nurse, Med 4 [address] [place] [address] 04/19/2023 Immunization/Injecti on Hematology Oncology Nurse, Med [address] [facility] [address] [place] [address] 04/28/2023 Office Visit Cardiology Rosa Tyler PA-C [address] [place] [address] 07/13/2023 Cardiac Studies Cardiology [facility], Pac[facility] [address] [place] [address] 10/23/2023 Nurse Only Nurse [facility] [address] [place] [address] Scheduled Orders Name Type Priority Associated Diagnoses [...] 10/18/2023 10/17/2022, 04/05 CKD PHOS USE SMARTSET 68836 10/18/202310/03, 04/12/2021, 02/28/2020, Additional history exists DIABETES-FOOT EXAM 10/18/2023 10/17/2022, 0 10/07/2020, 08/12/2019, Additional history exists Depression Screening, Annual for Pts 12 and Over 10/18/2023 10/17/2022 TSH 10/18/2023 10/17/2022, 10/03, 11/26/2020, Additional history exists CKD HGB USE SMARTSET 70891 12/09/202312/08, 12/08/2022, 08/15/2022, Additional history exists DXA [...] this encounter Medical Devices Implanted Type Area Material Handling Warehouse Supervisor Device Identifier Shelf Expiration Date Model / Serial / Lot Lens 21.0 Mx60 - [id number] Implanted:Qty: 1 on 03/23/2016 by Jax Theodore MD at OR [facility] [employer] : SURGICAL 10/02/2018 MX60-21.0 / [id number] / [id number] Lens 21.5 Mx60 - [id number] - [id number] Implanted:Qty: 1 on 04/20/2016 by Jax Theodore MD at OR [facility] Right: Eye [employer] : SURGICAL 09/02/2018 MX60-21.5 / [id number] / [id number] documented as of this encounter Visit Diagnoses Diagnosis Aortic stenosis- Primary Aortic valve disorders Aortic valve stenosis Aortic valve disorders documented in this [...] and were consensually agreed upon. Care Teams Personal Service Representative Relationship Specialty Start Date End Date Chelsey Mitchell, [address] [place] [address] PCP - General Family Medicine 07/10/18 documented as of this encounter
--- OUTSIDE RECORDS SUMMARY | 2023-06-11 13:25 | External Medical Summary | Summary of Care ---
Author Name Unknown Organization [facility] Address [address] [place] [address] Phone [phone] Care Team Providers Care Mobile Web Application Developer Name Role Phone Chelsey Mitchell DO Primary Care Provider [phone] Reason for Visit * Reason Comments Follow Up Encounter Details Date Type Department Care Team Description 01/25/2023 Office Visit Cardiology, [facility] [address] [facility] [place] [address] Payam Amor MD [address] [place] [address] Severe aortic stenosis*; SSS (sick sinus syndrome) ([facility]); Cardiac pacemaker in situ Allergies Active Allergy Reactions Severity Noted Date Comments Bee Venom Abdominal pain,Edema face/lips/tongue High 02/17/2011 Sulfa Antibiotics Rash Medium 12/26/2007 documented as of this encounter (statuses as of 01/25/2023) Medications Medication Sig Dispensed Refills Start Date [...] as of this encounter (statuses as of 01/25/2023) Active Problems Problem Noted Date Diabetic peripheral [...] as of this encounter (statuses as of 01/25/2023) Resolved Problems Problem Noted Date Resolved Date [...] as of this encounter (statuses as of 01/25/2023) Immunizations Name Administration Dates Next Due COVID-19 mRNA, LNP-s, No Pre serve, 2-Dose Series ([employer]) 10/01/2021,05/05/2021,09/10/2020,08/03 Covid-19, Mrna, Lnp-s, Pf, B ivalent, 30 Mcg, IM, 12 yrs and above ([employer]) 05/10/2022 Pneumococcal Conjugate Vacc, 13 Valent (Prevnar) [...] Sign Reading Time Taken Comments Blood Pressure 130/80 01/25/2023 8:59 AM EDT Pulse 80 01/25/2023 8:59 AM EDT Temperature - - Respiratory Rate 20 01/25/2023 8:59 AM EDT Oxygen Saturation 97% 01/25/2023 8:59 AM EDT Inhaled Oxygen Concentration - - Weight 85.3 kg (188 lb) 01/25/2023 8:59 AM EDT Height - - Body Mass Index 34.39 01/18/2023 8:00 AM EDT documented in this encounter Progress Notes * Payam Amor MD - 01/25/2023 9:44 AM EDT I have reviewed the advanced practitioner documentation and agree. I saw and evaluated the patient on date of service referenced in note and have performed the following medically appropriate historyand/or exam: 87 year old female with severe symptomatic Fatigue, low energy, dyspnea, chest pain. Full dentures PPM in 2019 for sick sinus syndrome H/o Pancreatic neuroendocrine tumor Plan for CT scan, surgical risk stratification and coronary angiogram. Payam Amor MD MPH Interventional Cardiology Pager: [phone] 01/25/23 9:48 AM * ISHAAN Naidu - 01/25/2023 9:00 AM EDT Valve Clinic Cardiology Outpatient Clinic Note 01/25/2023 Patient disposition: NEW PATIENT Primary [place] Shade Ring Coverer Dr. Sparks Past medical history: Severe aortic stenosis, Ao V2 max: 414.3 cm/sec Ao mean P.8 mmHg CHANA(I,D): 0.74 cm2, per echo 12/07/2022 Hypertension Dyslipidemia Sick sinus syndrome status post dual-chamber permanent pacemaker 01/2020 Chronic low back pain History of pancreatic head neuroendocrine tumor, on treatment with Sandostatin HPI 87-year-old female presenting to the valve clinic today as a new patient after being referred by Dr. Sparks due to severe symptomatic aortic stenosis. Today the patient presents accompanied by her daughter. Over the last few months she has noticed a decline in her functional capacity. Notes that she is very fatigued. Has been having some dyspnea with exertion as well as chest tightness. If she stops and rests symptoms improved within 10-15 minutes. No palpitations. No lightheadedness or episodes of syncope. No orthopnea or PND. No lower extremity edema. No fever, chills, cough, [...] 81 MG PO TABS one a day Diclofenac Sodium (VOLTAREN) 1 % gel Place [...] meal of the day 90 Capsule 1 HYDROcodone-Acetaminophen 5-325 MG Oral Tablet Take 1 Tablet by mouth every 6 hours as needed for Pain, Mild. 30 Tablet 0 ONETOUCH ULTRASOFT LANCETS [facility] Use one time a day in the morning. E11.9 1 Box Dosing Unit 11 OneTouch Verio In Vitro Strip (Glucose Blood) use as directed to test blood sugar once a day 100 Strip 3 No current facility-administered medications for this visit. [...] KNEE TOTAL [address] Qureshi, [facility] CARDIAC CATH INJ. FOR CORONARY ANGIOGRAPHY 09/2012 [facility], no significant CAD COLONOSCOPY, DIAGNOSTIC (RECTUM) 02/08/2017 polyp removed not retrieved, diverticulosis/[facility] DILATION AND CURETTAGE (D&C) 1999 after postmenopausal bleeding. EGD, FLEXIBLE, DIAGNOSTIC 02/08/2017 mild-mod inflammation, Schatzki ring, repeat 2 mo/[facility] EGD, FLEXIBLE, DIAGNOSTIC 04/10/2017 mild-mod inflammation on bx, gastric ulcer, repeat 6-8 wks/[facility] EGD, FLEXIBLE, DIAGNOSTIC 05/23/2017 well differentiated neuroendocrine tumor / [facility] EGD, FLEXIBLE, DIAGNOSTIC 08/31/2017 gastritis, repeat 1 yr/[facility] EGD, W/ENDOSCOPIC US N/A 06/08/2017 ESOPHAGOGASTRODUODENOSCOPY (EGD), FLEXIBLE, TRANSORAL, ENDOSCOPIC ULTRASOUND performed by Chapincito Saha MD at ENDOSCOPY [facility] EGD, W/ENDOSCOPIC US N/A 06/22/2018 ESOPHAGOGASTRODUODENOSCOPY (EGD), FLEXIBLE, TRANSORAL, ENDOSCOPIC ULTRASOUND performed by Chapincito Saha MD at ENDOSCOPY [facility] EGD, W/ENDOSCOPIC US N/A 07/24/2018 ESOPHAGOGASTRODUODENOSCOPY (EGD), FLEXIBLE, TRANSORAL, ENDOSCOPIC ULTRASOUND performed by Chapincito Saha MD at ENDOSCOPY [facility] EGD, W/ENDOSCOPIC US N/A 08/06/2019 ESOPHAGOGASTRODUODENOSCOPY (EGD), FLEXIBLE, TRANSORAL, ENDOSCOPIC ULTRASOUND performed by Chapincito Saha MD at ENDOSCOPY [facility] LUMBAR DISC ARTHROPLAST,REMV,ADDL INTERSPCE 2009 Br Rhona, lumbar 3 levels she thinks MOHS IMAGE (BIOMED) [address] Nielsen. REMOVE CATARACT, INSERT LENS PROSTH Right 04/20/2016 EXTRACAPSULAR CATARACT REMOVAL WITH INTRAOCULAR LENS performed by Jax Theodore MD at OR [facility] Social History Tobacco Use Smoking status: Never [...] those noted in HPI. Physical Exam BP 130/80 (BP Site: Left Arm, BP Position: Sitting, BP Cuff Size: Large) | Pulse 80 | Resp 20 | Wt 85.3 kg (188 lb) | SpO2 97% | BMI 34.39 kg/m | BSA 1.93 m General: No acute distress. A+Ox3. HEENT: Normocephalic. Atraumatic. Conjunctiva and sclera clear. NECK: No carotid bruits. No JVD. Carotid upstrokes are brisk. Heart: RRR. +S1, diminished S2. +3/6 systolic murmur. No rubs, gallops. Lungs: Clear to auscultation. No wheezes, rhonchi, rales. Abdomen: Normal bowel sounds. Soft. Nontender. No masses or organomegaly. No abdominal bruits. Extremities: No edema. No clubbing or cyanosis. Pulses: radial=2/4, posterior tibial=2/4, dorsalis pedis = 2/4. NEURO: No focal deficits. PSYCH: Normal. Lab data/imaging study review: Echo 12/07/2022 The examination is adequate to [...] mean P.8 mmHg CHANA(I,D): 0.74 cm2 Impression/Plan: Patient care was discussed/coordinated with Dr. Amor. Please refer to above for full plan of care. 1. Severe aortic stenosis -Severe symptomatic aortic stenosis, functional decline with chest pain and HANLEY -Ao V2 max: 414.3 cm/sec Ao mean P.8 mmHg CHANA(I,D): 0.74 cm2, per echo 12/07/2022 -NYHA class 3 Will move forward with TAVR workup at this time- plan for gated TAVR CT, coronary angiography, and surgical risk stratification at [facility]. Valve clinic will arrange. 2. SSS (sick sinus syndrome) ([facility]) 3. Cardiac pacemaker in situ -Sick sinus syndrome status post dual-chamber permanent pacemaker 01/2020 The patient agrees to the above plan and will call with additional questions or concerns. ER with all emergencies advised. Check-out note: Valve clinic will arrange follow up. Keep general cardiology appt as scheduled. I spent a total of 60 minutes on the date of service in preparation, delivery, and documentation ofthe care provided to Magdalena Paayn excluding any time spent in the performance of separately billed services. ISHAAN Hanson, Department of Cardiology This chart was completed in part utilizing [employer] Speech Voice Recognition Software. Grammatical errors, random [...] Nursing Notes * Alyssa Soares CMA - 01/25/2023 8:55 AM EDT Examination Room: 11 Name: Magdalena Payan Date of : (1935). Reason for Visit: New patient referral from Dr. Sparks Interim Hospitalization(s): none Problems/Concerns: denies Chest Pain/SOB: Occasional chest tightness with exertion, usually resolves within 10 mins. [facility] Discussed: Not applicable My AudienceView is a way you can talk to [...] Encounters Date Type Specialty Care Team Description 01/25/2023 Immunization/Injecti o n Hematology Oncology Nurse, Med 4 [address] [facility] [place] [address] 02/07/2023 Office Visit Hematology Oncology Rubin Rendon MD [address] [facility] [place] [address] 02/16/2023 Office Visit Family Medicine Chelsey Mitchell DO [address] [place] [address] 04/28/2023 Office Visit Cardiology Rosa Tyler PA-C [address] [place] [address] 07/13/2023 Cardiac Studies Cardiology [facility] [address] [facility] [place] [address] 10/23/2023 Nurse Only Ancillary Nurse [facility] [address] [place] [address] Scheduled Procedures Name Priority Associated Diagnoses Date/Ti [...] 10/18/2023 10/17/2022, 04/05 CKD PHOS USE SMARTSET 04565 10/18/2023 05/1 10/2022, 04/12/2021, 02/28/2020, Additional history exists DIABETES-FOOT EXAM 10/18/2023 10/17/2022, 0 10/07/2020, 08/12/2019, Additional history exists Depression Screening, Annual for Pts 12 and Over 10/18/2023 10/17/2022 TSH 10/18/2023 10/17/2022, 10/03, 11/26/2020, Additional history exists CKD HGB USE SMARTSET 62178 12/09/202312/08, 12/08/2022, 08/15/2022, Additional history exists DXA [...] this encounter Medical Devices Implanted Type Area Tour Production Supervisor Device Identifier Shelf Expiration Date Model / Serial / Lot Lens 21.0 Mx60 - [id number] Implanted:Qty: 1 on 03/23/2016 by Jax Theodore MD at OR [facility] [employer] : SURGICAL 10/02/2018 MX60-21.0 / [id number] / [id number] Lens 21.5 Mx60 - [id number] - [id number] Implanted:Qty: 1 on 04/20/2016 by Jax Theodore MD at OR [facility] Right: Eye [employer] : SURGICAL 09/02/2018 MX60-21.5 / [id number] / [id number] documented as of this encounter Visit Diagnoses Diagnosis Severe aortic stenosis- Primary Aortic valve disorders SSS (sick sinus syndrome) ([facility]) Sinoatrial node [...] and were consensually agreed upon. Care Teams Mobile Web Application Developer Relationship Specialty Start Date End Date Chelsey Mitchell, [address] [place] [address] PCP - General Family Medicine 07/10/18 documented as of this encounter"
--- OUTSIDE RECORDS SUMMARY | 2023-06-11 13:25 | External Medical Summary ---
Author Name Unknown Address Unknown Organization K01:LAB[facility]AT[facility] [place] [address] [place] [address] Laboratory Report Ordering Provider Test Date Status CHEMA CASTILLO 02/10/2023 11:00:59 Final Observation Date Value Abnormality Reference (Units ) Status BUN 02/10/2023 11:00:59 42 Above high normal 6-20 (mg/dL) Final Creatinine 02/10/2023 11:00:59 1.5 Above high normal 0.5-1.0 (mg/dL) Final Glomerular filtration rate/1.73 sq M.predicted [Volume Rate/Area] in Serum, Plasma or Blood by Creatinine-based formula (CKD-EPI) 02/10/2023 11:00:59 34 Below low normal >=60 (mL/min) Final eGFR is calculated based on the CKD-EPI 2020 equation SODIUM 02/10/2023 11:00:59 138 135-146 (m mol/L) Final Potassium 02/10/2023 11:00:59 4.8 3.5-5.1 (m mol/L) Final Cl 02/10/2023 11:00:59 104 98-107 (mm ol/L) Final CO2 02/10/2023 11:00:59 22 22-32 (mmo l/L) Final Anion gap 02/10/2023 11:00:59 12 7-15 (mmol /L) Final Glucose 02/10/2023 11:00:59 146 Above high normal 70 -120 (mg/dL) Final Calcium 02/10/2023 11:00:59 9.7 8.4-10.2 ( mg/dL) Final Albumin 02/10/2023 11:00:59 4.1 3.8-5.0 (g /dL) Final Phosphate 02/10/2023 11:00:59 3.5 2.5-4.8 (m g/dL) Final Performing Location LABORATORY C - [address] [facility] [address]
--- OUTSIDE RECORDS SUMMARY | 2023-06-11 13:25 | External Medical Summary | Summary of Care ---
Author Name Unknown Organization [facility] Address [address] [place] [address] Phone [phone] Care Team Providers Care Retail Stock Clerk Name Role Phone Chelsey Mitchell DO Primary Care Provider [phone] Reason for Visit * Reason Comments Follow Up Review scans Encounter Details Date Type Department Care Team Description 02/07/2023 Office Visit Hematology/Oncology State Sarita Van [address] [facility] [place] [address] Rubin Rendon MD [address] [facility] [place] [address] Primary malignant neuroendocrine neoplasm of duodenum (HCC)*; Other iron deficiency anemia Allergies Active Allergy Reactions Severity Noted Date Comments Bee Venom Abdominal pain,Edema face/lips/tongue High 02/17/2011 Sulfa Antibiotics Rash Medium 12/26/2007 documented as of this encounter (statuses as of 02/07/2023) Medications Medication Sig Dispensed Refills Start Date [...] Pain, Mild. 30 Tablet 0 01/19/2023 Active OneTouch Verio In Vitro Strip (Glucose Blood) use as directed to test blood sugar once a day 100 Strip 2 02/01/2023 Active documented as of this encounter (statuses as of 02/07/2023) Active Problems Problem Noted Date Diabetic peripheral [...] as of this encounter (statuses as of 02/07/2023) Resolved Problems Problem Noted Date Resolved Date [...] as of this encounter (statuses as of 02/07/2023) Immunizations Name Administration Dates Next Due COVID-19 mRNA, LNP-s, No Pre serve, 2-Dose Series ([employer]) 10/01/2021,05/05/2021,09/10/2020,08/03 Covid-19, Mrna, Lnp-s, Pf, B ivalent, 30 Mcg, IM, 12 yrs and above ([employer]) 05/10/2022 Pneumococcal Conjugate Vacc, 13 Valent (Prevnar) [...] Sign Reading Time Taken Comments Blood Pressure 125/84 02/07/2023 11:07 AM EDT Pulse 71 02/07/2023 11:07 AM EDT Temperature - - Respiratory Rate 16 02/07/2023 11:0 7 AM EDT Oxygen Saturation 92% 02/07/2023 11: 07 AM EDT Inhaled Oxygen Concentration - - Weight 84.3 kg (185 lb 12.8 oz) 023 11:07 AM EDT Height - - Body Mass Index 33.98 01/18/2023 8:00 AM EDT documented in this encounter Progress Notes * Rubin Rendon MD - 02/07/2023 11:15 AM EDT Hematology/Oncology Outpatient Clinic note Jenna Iniguez [place] [address] [facility] [place] [address] Name: Magdalena Payan Date: 04/14/2022 CHIEF COMPLAINT: Magdalena Payan is a 86 year old female here today for f/u visit today. HEMATOLOGY/ONCOLOGY DIAGNOSIS: Iron deficiency anemia related to gastric ulceration (February,) Duodenal submucosal neuroendocrine tumor (typical carcinoid, May,) - FNA from the periportal lymph node (06/22/2018) --> Malignant metastatic neuroendocrine tumor. Proliferative index the MIB-1 --> around 4%. Grade 2. - Pancreatic head and uncinate process soft tissue mass measuring 4.0 x 2.7 cm. Biopsy from that showed benign findings but this could be primary neuroendocrine tumor. (07/2018). - FNA from the pancreatic head mass (08/06/2019) --> well-differentiated neuroendocrine tumor, grade 2 CURRENT TREATMENT: 08/2017--> Sandostatin LAR 20 mg once a month. DIAGNOSTIC WORKUP: Earlier in February,, she was found to have some evidence of iron deficiency, she had endoscopic evaluation, found to have gastric ulcer, no evidence of malignancy noted, small duodenal lesion noted, biopsy done at that time showed intraepithelial lymphocytes from the duodenal mucosa. Subsequently she had few other endoscopic evaluation, gradual improvement of the previously noted gastric ulceration noted. She had another endoscopic evaluation in late May,. - Biopsy from the duodenal nodule--> well-differentiated neuroendocrine tumor (typical carcinoid) -MRI of the abdomen done on 06/02/2017 showed no suspicious liver lesions, no definite duodenal tumor identified. No intra-abdominal lymphadenopathy noted. -Chromogranin A level--> 64 which is in normal range (06/08/2017) -24 hour 5-HIAA level--> 2.4 which is in the normal range (06/16/2017). PATHOLOGY: -Biopsy from the duodenum--> increase intraepithelial lymphocytes. (February,). -Biopsy from the gastric ulcer--> moderate acute and chronic gastritis with many years sulfate. Negative for metaplasia, H pylori negative (February,) -Biopsy of the duodenal nodule (05/23/2017)--> well-differentiated neuroendocrine tumor (typicalcarcinoid). FNA from the pancreatic head mass (08/06/2019) --> well-differentiated neuroendocrine tumor, grade2 Biopsy from the duodenal bulb scar --> negative for malignancy (08/06/2019). OTHER IMPORTANT HISTORY: -hypothyroidism -hyperlipidemia. -hypertension -DJD, she had a spine surgery by Dr. Melgoza, had a knee replacement surgery in the past. Presently she is not on any NSAID therapy. -Diabetes mellitus. -S/P permanent pacemaker placement in January 2020. Interval History: NETSPOT 03/21/22: IMPRESSION 1. Similar foci of increased net spot activity as above including at the right thyroid lobe and in the pancreatic and peripancreatic regions as above. HISTORY OF PRESENT ILLNESS: She has come to the clinic for the follow-up, she gets Sandostatin LAR every 4 weekly, overall she is doing well, has some DJD, she had right hip replacement surgery in November [address] Villagomez. She has recovered well. No new cardiac or pulmonary symptom,a no wheezing, no increasing diarrhea, nowadays she has stop taking oral iron supplementation. Says that she could not tolerate that treatment well. No nausea, no vomiting. No fever, no night sweats. Ambulates well, ECOG PS 1, current weight 185 lb. She takes Vicodin for the symptomatic treatment of joint pain. She says going for the cardiac catheterization in the near future, may require valve replacement surgery in the future. Past Medical History: Diagnosis Date Basal cell carcinoma of skin Maranda Gardner. Chronic rhinitis 12/08/06 Dr. De La Rosa History of malignant neuroendocrine tumor duodenum Hypothyroidism Sensorineural hearing loss 12/08/06 Dr. De La Rosa Temporomandibular joint disorders, unspecified 12/08/06 Dr. De La Rosa Vertigo 12/08/06 Dr. De La Rosa Past Surgical History: Procedure Laterality Date ARTHROPLASTY KNEE TOTAL [address] Qureshi, [facility] [place] [place]. FOR CORONARY ANGIOGRAPHY 09/2012 [facility], no significant CAD COLONOSCOPY, DIAGNOSTIC (RECTUM) 02/08/2017 polyp removed not retrieved, diverticulosis/[facility] DILATION AND CURETTAGE (D&C) 1999 after postmenopausal bleeding. EGD, FLEXIBLE, DIAGNOSTIC 02/08/2017 mild-mod inflammation, Schatzki ring, repeat 2 mo/[facility] EGD, FLEXIBLE, DIAGNOSTIC 04/10/2017 mild-mod inflammation on bx, gastric ulcer, repeat 6-8 wks/[facility] EGD, FLEXIBLE, DIAGNOSTIC 05/23/2017 well differentiated neuroendocrine tumor / [facility] EGD, FLEXIBLE, DIAGNOSTIC 08/31/2017 gastritis, repeat 1 yr/[facility] EGD, W/ENDOSCOPIC US N/A 06/08/2017 ESOPHAGOGASTRODUODENOSCOPY (EGD), FLEXIBLE, TRANSORAL, ENDOSCOPIC ULTRASOUND performed by Chapincito Saha MD at [facility] EGD, W/ENDOSCOPIC US N/A 06/22/2018 ESOPHAGOGASTRODUODENOSCOPY (EGD), FLEXIBLE, TRANSORAL, ENDOSCOPIC ULTRASOUND performed by Chapincito Saha MD at [facility] EGD, W/ENDOSCOPIC US N/A 07/24/2018 ESOPHAGOGASTRODUODENOSCOPY (EGD), FLEXIBLE, TRANSORAL, ENDOSCOPIC ULTRASOUND performed by Chapincito Saha MD at [facility] EGD, W/ENDOSCOPIC US N/A 08/06/2019 ESOPHAGOGASTRODUODENOSCOPY (EGD), FLEXIBLE, TRANSORAL, ENDOSCOPIC ULTRASOUND performed by Chapincito Saha MD at [facility] LUMBAR DISC ARTHROPLAST,REMV,ADDL INTERSPCE 2009 Br Rhona, lumbar 3 levels she thinks MOHS IMAGE (BIOMED) [address] Nielsen. REMOVE CATARACT, INSERT LENS PROSTH Right 04/20/2016 EXTRACAPSULAR CATARACT REMOVAL WITH INTRAOCULAR LENS performed by Jax Theodore MD at OR [facility] Social History Tobacco Use Smoking status: Never Smokeless tobacco: Never Substance and Sexual Activity Alcohol use: No Drug use: No Review of patient's allergies indicates: Allergen Reactions Bee Venom Abdominal pain and Edema face/lips/tongue Sulfa Antibiotics Rash Current Outpatient Medications Medication Sig Dispense Refill [...] needed for Pain, Mild. 30 Tablet 0 OneTouch Verio In Vitro Strip (Glucose Blood) use as directed to test blood sugar once a day 100 Strip 2 No current facility-administered medications for this visit. REVIEW OF SYSTEMS: See HPI - otherwise negative OBJECTIVE: BP 125/84 (BP Site: Left Arm, BP Position: Sitting, BP Cuff Size: Large) | Pulse 71 | Resp 16 | Wt 84.3 kg (185 lb 12.8 oz) | SpO2 92% | BMI 33.98 kg/m | BSA 1.92 m PHYSICAL EXAM: ECOG: Performance Status 1 = 80-90% Symptoms but nearly ambulatory General Appearance: No acute distress Lymph Nodes: Normal - No palpable lymph nodes in the neck or supraclavicular areas Lungs/Thorax: Normal - Clear to auscultation Heart: Normal - Regular rate and rhythm, normal S1, S2, no appreciable murmurs Pulses/Extremities: Normal - 2+ throughout and symmetrical, no edema Abdomen: Normal - Soft, nontender, bowel sounds present, no appreciable hepatosplenomegaly, no palpable masses Neurologic: Normal - Grossly intact LABS: Blood workup done on 04/15/2022: -WBC 8400, H&H of 11.8/38, Platelet 168,000 -BUN/Creat: 40/1.2, normal LFT. Chromogranin A level --> 818. -Serum iron: 58, TIBC 374, iron saturation 16% -Ferritin level --> 81 -Vitamin B12 --> 974, folic acid --> > 20 Blood workup done on 12/08/2022: -WBC 9200, H&H of 12.7/41, Platelet count 123729. -BUN/Creat: 27/1.5, Calcium 9.9, normal LFT -Chromogranin A level --> 598. Gallium PET-CT scan (03/21/2022). 1. Similar foci of increased net spot activity as above including at the right thyroid lobe and in the pancreatic and peripancreatic regions Gallium PET-CT scan (01/18/2023). 1. Overall stable distribution of disease involving the pancreatic head and peripancreatic lymph nodes. The size of the lymph nodes is minimally larger than the previous examination, however, this could be secondary to differences in slice selection. 2. Mildly avid nodule in the right thyroid bed/paratracheal region, stable. This varies dramatically in intensity from the disease in the abdomen and may be unrelated to the patient's neuroendocrine tumor. 3. No new disease identified within the limits of the study. IMPRESSION/PLAN: Neuroendocrine Tumor of the Pancreas Disease Status: Stable Disease Restaging PET/CT reviewed with patient: showing stable disease (January 2023). Labs reviewed: stable -chromogranin A slightly higher side but stable. She is also on PPI which can falsely elevate Chromogranin A level. Patient feeling stable today. Denies abdominal pain, reflux, nausea or diarrhea. Weight is stable. Continue Sandostatin LAR 20 mg once a month - will receive today Continue cbc/diff, cmp and chromogranin a every other month History of iron deficiency in the past, she was on oral iron replacement therapy but for the last several months, she has stop taking, she says that she could not tolerate the treatment well. I reviewed her blood workup done in April 2022, mild anemia but stable hemoglobin level, Ferritin level is in normal range. Will observe at this time. In the future, if she has evidence of iron deficient,will consider for intravenous iron. I am planning to see her back in about [address] Rubin Rendon Hem/Onc (This note was completed using the dictation program Fluency Direct. As such, there may be misspellings word substitutions, or other variations that should not change the essence of the clinical content of this encounter note. If there is need for further clarification, please direct questions to the provider listed above.) documented in this encounter Nursing Notes * Marva Todd CMA - 02/07/2023 11:07 AM EDT Patient identifed by name and birthdate Do you have any concerns about pain management for today's visit? No Living Will or Advance Directive for Health Care as noted on the problem list. [facility] is a way you can talk to your provider on line through e-mail. Would you like to sign up? I can activate it for you? ALREADY ACTIVE Filed Vitals: 02/07/23 1107 BP: 125/84 Pulse: 71 Resp: 16 SpO2: 92% Weight: 84.3 kg (185 lb 12.8 oz) Patient was instructed to not get up on the exam table/exam chair until directed and assisted by their provider; patient is to remain seated in the chair/ wheelchair/ exam table/ exam chair for fall prevention and safety reasons. Patient is aware to have assistance to step down off exam table/exam chair with personnel. Patient voiced full comprehension of instructions. documented in this encounter Plan of Treatment Upcoming Encounters Date Type Specialty Care Team Description 02/10/2023 Hospital Encounter Cardiac Cooker Mechanic Miles Zuleta, DO [address] [place] [address] 02/10/2023 Surgery Cardiac Cooker Mechanic Miles Zuleta, DO [address] [place] [address] CORONARY ANGIOGRAPHY W/LEFT HEART CATH 02/10/2023 Office Visit Cardiology [place], Cardiac Recovery [facility] [address], [place] [id number] 02/16/2023 Office Visit Family Medicine Chelsey Mitchell, DO [address] [place] [address] 02/22/2023 Immunization/Inject ion Hematology Oncology Nurse, Med 4 [address] [facility] [place], [place] [address] 03/06/2023 Office Visit Cardiothoracic Surgery Diego Bright MD [address] [place] [address] 03/06/2023 Appointment Radiology 03/22/2023 Immunization/Inject ion Hematology Oncology Nurse, Med 4 [address] [place], [place] [address] 04/19/2023 Immunization/Inject ion Hematology Oncology Nurse, Med 4 [address] [facility] [place], [place] [address] 04/28/2023 Office Visit Cardiology Rosa Tyler PA-C [address] [place] [address] 07/13/2023 [facility]iac Studies [facility] [place] [address] [facility] [place] [address] 08/08/2023 Office Visit [facility]ematology Oncology [facility] [address] 10/23/2023 Nurse Only Ancillary Nurse [facility] [address] [facility] [place] [address] Scheduled Procedures Name Priority Associated Diagnoses Date/Ti [...] 10/18/2023 10/17/2022, 04/05 CKD PHOS USE SMARTSET 64308 10/18/202310/03, 04/12/2021, 02/28/2020, Additional history exists DIABETES-FOOT EXAM 10/18/2023 10/17/2022, 0 10/07/2020, 08/12/2019, Additional history exists Depression Screening, Annual for Pts 12 and Over 10/18/2023 10/17/2022 TSH 10/18/2023 10/17/2022, 10/03, 11/26/2020, Additional history exists CKD HGB USE SMARTSET 11687 12/09/202312/08, 12/08/2022, 08/15/2022, Additional history exists DXA [...] this encounter Medical Devices Implanted Type Area Small Business Representative Device Identifier Shelf Expiration Date Model / Serial / Lot Lens 21.0 Mx60 - [id number] Implanted:Qty: 1 on 03/23/2016 by Jax Theodore MD at OR [facility] [employer] : SURGICAL 10/02/2018 MX60-21.0 / [id number] / [id number] Lens 21.5 Mx60 - [id number] - [id number] Implanted:Qty: 1 on 04/20/2016 by Jax Theodore MD at OR [facility] Right: Eye [employer] : SURGICAL 09/02/2018 MX60-21.5 / [id number] / [id number] documented as of this encounter Visit Diagnoses Diagnosis Primary malignant neuroendocrine neoplasm of duodenum (HCC)- Primary Other iron deficiency anemia Aortic stenosis Aortic valve disorders documented in [...] and were consensually agreed upon. Care Teams Retail Stock Clerk Relationship Specialty Start Date End Date Chelsey Mitchell, DO [address] [facility] [place] [id number] PCP - General Family Medicine 07/10/18 documented as of this encounter"
--- OUTSIDE RECORDS SUMMARY | 2023-06-11 13:25 | External Medical Summary | Summary of Care ---
Author Name Unknown Organization [facility] Address [address] [place] [address] Phone [phone] Care Team Providers Care Cd Manufacturing Supervisor Name Role Phone Tania Orlando DO Primary Care Provider [phone] Reason for Visit * Reason Comments eRx-Medication Refill Encounter Details Date Type Department Care Team Description 02/01/2023 Refill [place] [address] [place] [address] Tania Orlando DO [address] [place] [address] Allergies Active Allergy Reactions Severity Noted Date Comments Bee Venom Abdominal pain,Edema face/lips/tongue High 02/17/2011 Sulfa Antibiotics Rash Medium 12/26/2007 documented as of this encounter (statuses as of 02/01/2023) Medications Medication Sig Dispensed Refills Start Date End Date Status ASPIRIN 81 MG PO TABS one a day 0 Active ONETOUCH ULTRASOFT LANCETS MISC Use one time a day in the morning. E11.9 1 Box Dosing Unit 11 9 Active Diclofenac Sodium (VOLTAREN) 1 % gelIndications:Dege neration of cervical intervertebral disc,Generalized osteoarthritis,Hx of gastric ulcer Place 2 g topically on the skin 2 times a day. To affected area as directed. 100 g 5 0 Active Vitamin D (Cholecalciferol) 10 MCG (400 [...] for dizziness 30 Tablet 1 2 Active Metoprolol Tartrate 25 MG Oral Tablet [...] the day 90 Capsule 1 3 Active HYDROcodone-Acetami nophen 5-325 MG Oral TabletIndications:O steoarthritis of multiple joints, unspecified osteoarthritis type,Generalized OA Take 1 Tablet by mouth every 6 hours as needed for Pain, Mild. 30 Tablet 0 3 Active OneTouch Verio In Vitro Strip (Glucose Blood) use as directed to test blood sugar once a day 100 Strip 2 3 Active OneTouch Verio In Vitro Strip (Glucose Blood) use as directed to test blood sugar once a day 100 Strip 3 2 02/02/20 23 Discontinued documented as of this encounter (statuses as of 02/01/2023) Active Problems Problem Noted Date Diabetic peripheral [...] as of this encounter (statuses as of 02/01/2023) Resolved Problems Problem Noted Date Resolved Date [...] as of this encounter (statuses as of 02/01/2023) Immunizations Name Administration Dates Next Due COVID-19 mRNA, LNP-s, No Pre serve, 2-Dose Series ([employer]) 10/01/2021,05/05/2021,09/10/2020,08/03 Covid-19, Mrna, Lnp-s, Pf, B ivalent, 30 Mcg, IM, 12 yrs and above ([employer]) 05/10/2022 Pneumococcal Conjugate Vacc, 13 Valent [...] encounter Miscellaneous Notes * Telephone Encounter - Donell Jones, [facility] - 02/01/2023 4:33 PM EDTSigned Prescriptions: Disp Refills OneTouch Verio In Vitro Strip (Glucose Blo*[address] St*2 Sig: use as directed to test blood sugar once a dayAuthorizing Provider: TANIA ORLANDO User: DONELL JONES documented in this encounter Plan of Treatment Upcoming Encounters Date Type Specialty Care Team Description 02/07/2023 Office Visit Hematology Oncology Rubin Rendon MD [address] [place], [place] [address] 02/10/2023 Hospital Encounter Cardiac Ski Maker Wood Miles Zuleta, DO [address] [place] [address] 02/10/2023 Surgery Cardiac Ski Maker Wood Miles Zuleta, DO [address] [place] [address] CORONARY ANGIOGRAPHY W/LEFT HEART CATH 02/10/2023 Office Visit Cardiology [place], Cardiac Recovery [facility] [address] [place] [address] 02/16/2023 Office Visit Family Medicine Tania Orlando DO [address] [place] [address] 02/22/2023 Immunization/Inject ion Hematology Oncology Nurse, Med 4 [address] [place], [place] [address] 03/06/2023 Office Visit Cardiothoracic Surgery Diego Bright MD [address] [place] [address] 03/06/2023 Appointment Radiology 03/22/2023 Immunization/Inject ion Hematology Oncology Nurse, Med 4 [address], [place] [address] 04/19/2023 Immunization/Inject ion Hematology Oncology Nurse, Med 4 [address] [place] [address] 04/28/2023 Office Visit Cardiology Rosa Tyler PA-C [address] [place] [address] 07/13/2023 Cardiac Studies Cardiology [facility] [address] [place] [address] 10/23/2023 Nurse Only Ancillary Nurse [facility] [address] [facility] [place] [address] Scheduled Procedures Name Priority Associated Diagnoses Date/Ti [...] 10/18/2023 10/17/2022, 04/05 CKD PHOS USE SMARTSET 47140 10/18/202310/03, 04/12/2021, 02/28/2020, Additional history exists DIABETES-FOOT EXAM 10/18/2023 10/17/2022, 0 10/07/2020, 08/12/2019, Additional history exists Depression Screening, Annual for Pts 12 and Over 10/18/2023 10/17/2022 TSH 10/18/2023 10/17/2022, 10/03, 11/26/2020, Additional history exists CKD HGB USE SMARTSET 49126 12/09/202312/08, 12/08/2022, 08/15/2022, Additional history exists DXA [...] Medical Devices Implanted Type Area Real Estate Photographer Device Identifier Shelf Expiration Date Model / Serial / Lot Lens 21.0 Mx60 - [id number] Implanted:Qty: 1 on 03/23/2016 by Jax Theodore MD at OR [facility] [employer] : SURGICAL 10/02/2018 MX60-21.0 / [id number] / [id number] Lens 21.5 Mx60 - [id number] - [id number] Implanted:Qty: 1 on 04/20/2016 by Jax Theodore MD at OR [facility] Right: Eye [employer] : SURGICAL 09/02/2018 MX60-21.5 / [id number] / [id number] documented as of this encounter Advance Directives [...] and were consensually agreed upon. Care Teams Cd Manufacturing Supervisor Relationship Specialty Start Date End Date Tania Orlando, [address] [place] [facility] [place] [address] PCP - General Family Medicine 07/10/18 documented as of this encounter
--- OUTSIDE RECORDS SUMMARY | 2023-06-11 13:25 | External Medical Summary | Summary of Care ---
Author Name Unknown Organization [facility] Address [address] [place] [address] Phone [phone] Care Team Providers Care Finger Cobbler Name Role Phone Chelsey Mitchell DO Primary Care Provider [phone] Reason for Visit * Reason Onset Date Comments Precert Denied 01/20/2023 Encounter Details Date Type Department Care Team Description 01/20/2023 Telephone Hematology/Oncology [facility] [address] [place] [address] Rubin Rendon MD [address] [place] [address] Precert Denied Allergies Active Allergy Reactions Severity Noted Date Comments Bee Venom Abdominal pain,Edema face/lips/tongue High 02/17/2011 Sulfa Antibiotics Rash Medium 12/26/2007 documented as of this encounter (statuses as of 01/26/2023) Medications Medication Sig Dispensed Refills Start Date [...] as of this encounter (statuses as of 01/26/2023) Active Problems Problem Noted Date Diabetic peripheral [...] as of this encounter (statuses as of 01/26/2023) Resolved Problems Problem Noted Date Resolved Date [...] as of this encounter (statuses as of 01/26/2023) Immunizations Name Administration Dates Next Due COVID-19 mRNA, LNP-s, No Pre serve, 2-Dose Series ([employer]) 10/01/2021,05/05/2021,09/10/2020,08/03 Covid-19, Mrna, Lnp-s, Pf, B ivalent, 30 Mcg, IM, 12 yrs and above ([employer]) 05/10/2022 Pneumococcal Conjugate Vacc, 13 Valent (Prevnar) [...] encounter Miscellaneous Notes * Telephone Encounter - Colleen Joseph LPN - 01/26/2023 1:[address] Rendon signed and approved today, faxed to [facility] for urgent appeal * Telephone Encounter - Colleen Joseph LPN - 01/25/2023 11:06 AM EDT Patient in office for sandostatin 20mg injection, she brought paperwork from [facility] for denial. Received fax number from patient's paperwork. Completed forms and fax to [facility] at for fast appeal ( is regular fax for appeal) Case #[id number] Completed letter and pending on pantera's signature * Telephone Encounter - Rabia DIAZ Vanegas - 01/20/2023 5:10 PM EDT Images from the original note were not included. * Telephone Encounter - September DIAZ Vanegas - 01/20/2023 5:05 PM EDT Images from the original note were not included. * Telephone Encounter - September DIAZ Vanegas - 01/20/2023 4:58 PM EDT Images from the original note were not included. * Telephone Encounter - Ann Marie Porter RN - 01/20/2023 12:15 PM EDT Patient had PET 01/18/23, appeal will need to be done. Precert: please have denial letter scanned in so that we will know how to appeal (we do not have a [facility] portal so will need the fax number on the denial. Thanks! * Telephone Encounter - Rabia DIAZ Vanegas - 01/20/2023 11:03 AM EDT The PET CT requested for Magdalena Payan has been denied by [facility]. Per [facility] denial reason: Your records do not show which drug will be used during your study to highlight internal organs and veins (radiotracer). It is not supported for any of these reasons. -To monitor the amounts of avidity (motion that suggests disease). -To measure the amounts of avidity in parts of a mass that remain at the end of planned treatment. -To monitor parts of a mass that remain after treatment when the mass has not changed in size since the last imaging. -You are not currently receiving anti-tumor treatment. -You are currently receiving maintenance treatment. -Surveillance after complete surgical removal of primary disease. After speaking with [facility] rep, P2P is not an option and an appeal would have to be completed. For Physician/Providers Use Only When Filing an Appeal: Portal Online Submission: Go to [email or web address] Thank you, DIAZ Serna 01/20/2023, 11:04 AM documented in this encounter Plan of Treatment Upcoming Encounters Date Type Specialty Care Team Description 02/07/2023 Office Visit Hematology Oncology Rubin Rendon MD [address] [facility] [place] [address] 02/16/2023 Office Visit Family Medicine Chelsey Mitchell DO [address] [place] [address] 02/22/2023 Immunization/Injecti o n Hematology Oncology Nurse, Med [address] [place] [address] [address] 03/22/2023 Immunization/Injecti o n Hematology Oncology Nurse, Med [address] [place] [address] [address] 04/19/2023 Immunization/Injecti o n Hematology Oncology Nurse, Med [address] [place] [address] [address] 04/28/2023 Office Visit Cardiology Rosa Tyler PA-C [address] [place] [address] 07/13/2023 Cardiac Studies Cardiology Flex [place] [address] [place] [address] 10/23/2023 Nurse Only Ancillary Nurse [facility] [address] [place] [address] Scheduled Procedures Name Priority Associated Diagnoses Date/Ti [...] 10/18/2023 10/17/2022, 04/05 CKD PHOS USE SMARTSET 11155 10/18/202310/03, 04/12/2021, 02/28/2020, Additional history exists DIABETES-FOOT EXAM 10/18/2023 10/17/2022, 0 10/07/2020, 08/12/2019, Additional history exists Depression Screening, Annual for Pts 12 and Over 10/18/2023 10/17/2022 TSH 10/18/2023 10/17/2022, 10/03, 11/26/2020, Additional history exists CKD HGB USE SMARTSET 93200 12/09/202312/08, 12/08/2022, 08/15/2022, Additional history exists DXA [...] this encounter Medical Devices Implanted Type Area Recreation Establishment Manager Device Identifier Shelf Expiration Date Model / Serial / Lot Lens 21.0 Mx60 - [id number] Implanted:Qty: 1 on 03/23/2016 by Jax Theodore MD at OR [facility] [employer] : SURGICAL 10/02/2018 MX60-21.0 / [id number] / [id number] Lens 21.5 Mx60 - [id number] - [id number] Implanted:Qty: 1 on 04/20/2016 by Jax Theodore MD at OR [facility] Right: Eye [employer] : SURGICAL 09/02/2018 MX60-21.5 / [id number] / [id number] documented as of this encounter Advance Directives [...] and were consensually agreed upon. Care Teams Finger Cobbler Relationship Specialty Start Date End Date Chelsey Mitchell, [address] [place] [address] PCP - General Family Medicine 07/10/18 documented as of this encounter
--- OUTSIDE RECORDS SUMMARY | 2023-06-11 13:25 | External Medical Summary | Summary of Care ---
Author Name Unknown Organization [facility] Address [address] [place] [address] Phone [phone] Care Team Providers Care Behavioral Health Consultant Name Role Phone Chelsey Mitchell DO Primary Care Provider [phone] Reason for Visit * Reason Onset Date Comments Precert Denied 01/20/2023 Encounter Details Date Type Department Care Team Description 01/20/2023 Telephone Hematology/Oncology [facility] [address] [place] [address] Rubin Rendon MD [address] [place] [address] Precert Denied Allergies Active Allergy Reactions Severity Noted Date Comments Bee Venom Abdominal pain,Edema face/lips/tongue High 02/17/2011 Sulfa Antibiotics Rash Medium 12/26/2007 documented as of this encounter (statuses as of 01/23/2023) Medications Medication Sig Dispensed Refills Start Date [...] as of this encounter (statuses as of 01/23/2023) Active Problems Problem Noted Date Diabetic peripheral [...] as of this encounter (statuses as of 01/23/2023) Resolved Problems Problem Noted Date Resolved Date [...] rhinitis 12/08/2006 10/16/2017 Overview: Dr. De La Roas documented as of this encounter (statuses as of 01/23/2023) Immunizations Name Administration Dates Next Due COVID-19 mRNA, LNP-s, No Pre serve, 2-Dose Series ([employer]) 10/01/2021,05/05/2021,09/10/2020,08/03 Covid-19, Mrna, Lnp-s, Pf, B ivalent, 30 Mcg, IM, 12 yrs and above ([employer]) 05/10/2022 Pneumococcal Conjugate Vacc, 13 Valent (Prevnar) [...] Miscellaneous Notes * Telephone Encounter - DIAZ Serna - 01/20/2023 5:10 PM EDT Images from the original note were not included. * Telephone Encounter - DIAZ Serna - 01/20/2023 5:05 PM EDT Images from the original note were not included. * Telephone Encounter - DIAZ Serna - 01/20/2023 4:58 PM EDT Images from the original note were not included. * Telephone Encounter - Ann Marie Porter RN - 01/20/2023 12:15 PM EDT Patient had PET 01/18/23, appeal will need to be done. Precert: please have denial letter scanned in so that we will know how to appeal (we do not have a [facility] portal so will need the fax number on the denial. Thanks! * Telephone Encounter - DIAZ Serna - 01/20/2023 11:03 AM EDT The PET CT requested for Magdalena Payan has been denied by [facility]. Per [facility] denial reason: Your records do not show [...] removal of primary disease. After speaking with [facility] rep, P2P is not an option and an appeal would have to be completed. For Physician/Providers Use Only When Filing an Appeal: Portal Online Submission: Go to [email or web address] Thank you, DIAZ Serna 01/20/2023, 11:04 AM documented in this encounter Plan of Treatment Upcoming Encounters Date Type Specialty Care Team Description 01/25/2023 Office Visit Cardiology Payam Amor MD [address] [place] [address] 01/25/2023 Immunization/Injecti o n Hematology Oncology Nurse, Med 4 200 [facility] [place], [place] [address] 02/07/2023 Office Visit Hematology Oncology Rubin Rendon MD [address] [facility], [place] [address] 02/16/2023 Office Visit Family Medicine Chelsey Mitchell DO [address] [place] [address] 04/28/2023 Office Visit Cardiology Rosa Tyler PA-C [address] [place] [address] 07/13/2023 Cardiac Studies Cardiology Flex Field [facility] [address] [place] [address] 10/23/2023 Nurse Only Ancillary Nurse [facility] [address] [place] [address] Scheduled Procedures Name Priority Associated Diagnoses Date/Ti [...] 10/18/2023 10/17/2022, 04/05 CKD PHOS USE SMARTSET 80691 10/18/202310/03, 04/12/2021, 02/28/2020, Additional history exists DIABETES-FOOT EXAM 10/18/2023 10/17/2022, 0 10/07/2020, 08/12/2019, Additional history exists Depression Screening, Annual for Pts 12 and Over 10/18/2023 10/17/2022 TSH 10/18/2023 10/17/2022, 10/03, 11/26/2020, Additional history exists CKD HGB USE SMARTSET 29270 12/09/202312/08, 12/08/2022, 08/15/2022, Additional history exists DXA [...] this encounter Medical Devices Implanted Type Area Catering Convention Services Manager Device Identifier Shelf Expiration Date Model / Serial / Lot Lens 21.0 Mx60 - [id number] Implanted:Qty: 1 on 03/23/2016 by Jax Theodore MD at OR [facility] [employer] : SURGICAL 10/02/2018 MX60-21.0 / [id number] / [id number] Lens 21.5 Mx60 - [id number] - [id number] Implanted:Qty: 1 on 04/20/2016 by Jax Theodore MD at OR [facility] Right: Eye [employer] : SURGICAL 09/02/2018 MX60-21.5 / [id number] / [id number] documented as of this encounter Advance Directives [...] and were consensually agreed upon. Care Teams Behavioral Health Consultant Relationship Specialty Start Date End Date Chelsey Mitchell DO [address] [place] [facility] [place] [address] PCP - General Family Medicine 07/10/18 documented as of this encounter
--- OUTSIDE RECORDS SUMMARY | 2023-06-11 13:25 | External Medical Summary | Summary of Care ---
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 Procedures MI OCTREOTIDE INJECTION, DEPOT Rubin Rendon MD [address] [place] [address] Anc Hem/Onc [address] [address] [place] [address] Referral ID Status Reason Start Date Expiration Date V isits Requested Visits Authorized [id number] Authorized 07/22/2022 07/22/2023 99 99 Encounter Details Date Type Department Care Team Description 01/25/2023 Immunization/I njection Hematology/Oncology Treatment, [place] [address] [place] [address] Nurse, Med [address] [place] [address] [address] Primary malignant neuroendocrine neoplasm of duodenum (HCC)*; [...] on file documented as of this encounter Progress Notes * Colleen Joseph LPN - 01/25/2023 11:22 AM EDT Administered 20mg sandostatin to left dorsogluteal IM. Patient tolerated well, patient left in stable condition. documented in this encounter Plan of Treatment Upcoming Encounters Date Type Specialty Care Team Description 02/07/2023 Office Visit Hematology Oncology Rubin Rendon MD [address] [facility] [place] [address] 02/16/2023 Office Visit Family Medicine Chelsey Mitchell, DO [address] [place] [address] 02/22/2023 Immunization/Injecti o n Hematology Oncology Nurse, Med 4 [address] [facility] [place] [address] 03/22/2023 Immunization/Injecti o n Hematology Oncology Nurse, Med 4 [address] [facility] [place] [address] 04/19/2023 Immunization/Injecti o n Hematology Oncology Nurse, Med 4 [address] [facility] [place] [address] 04/28/2023 Office Visit Cardiology Rosa Tyler PA-C [address] [place] [address] 07/13/2023 Cardiac Studies Cardiology [facility] [address] [place] [address] 10/23/2023 Nurse Only Nurse [facility] [address] [facility] [address] Scheduled Procedures Name Priority Associated Diagnoses Date/Ti [...] 10/18/2023 10/17/2022, 04/05 CKD PHOS USE SMARTSET 53954 10/18/202310/03, 04/12/2021, 02/28/2020, Additional history exists DIABETES-FOOT EXAM 10/18/2023 10/17/2022, 0 10/07/2020, 08/12/2019, Additional history exists Depression Screening, Annual for Pts 12 and Over 10/18/2023 10/17/2022 TSH 10/18/2023 10/17/2022, 10/03, 11/26/2020, Additional history exists CKD HGB USE SMARTSET 94357 12/09/202312/08, 12/08/2022, 08/15/2022, Additional history exists DXA [...] this encounter Medical Devices Implanted Type Area Trim Machine Adjuster Device Identifier Shelf Expiration Date Model / Serial / Lot Lens 21.0 Mx60 - [id number] Implanted:Qty: 1 on 03/23/2016 by Jax Theodore MD at OR [facility] [employer] : SURGICAL 10/02/2018 MX60-21.0 / [id number] / [id number] Lens 21.5 Mx60 - [id number] - [id number] Implanted:Qty: 1 on 04/20/2016 by Jax Theodore MD at OR [facility] Right: Eye [employer]OM[employer] : SURGICAL 09/02/2018 MX60-21.5 / [id number] / [id number] documented as of this encounter Visit Diagnoses [...] 20 mg 20 mg, Intramuscular, ONCE, On Mon01/25/23 at 1145, For 1 dose, Given 01/25/2023 10:51 AM EDT 20 mg Dorsogluteal Left documented [...] and were consensually agreed upon. Care Teams Hairmasters Manager Relationship Specialty Start Date End Date Chelsey Mitchell, DO [address] [place] [address] PCP - General Family Medicine 07/10/18 documented as of this encounter
--- OUTSIDE RECORDS SUMMARY | 2023-06-11 13:25 | External Medical Summary | Summary of Care ---
Author Name Unknown Organization [facility] Address [address] [place] [address] Phone [phone] Care Team Providers Care Ammonium Nitrate Neutralizer Name Role Phone Chelsey Mitchell DO Primary Care Provider [phone] Reason for Visit * Reason Onset Date Comments Precert Denied 01/20/2023 Encounter Details Date Type Department Care Team Description 01/20/2023 Telephone Hematology/Oncology [facility] [address] [place] [address] Rubin Rendon MD [address] [place] [address] Precert Denied Allergies Active Allergy Reactions Severity [...] mRNA, LNP-s, No Pre serve, 2-Dose Series ([employer]) 10/01/2021,05/05/2021,09/10/2020,08/03 Covid-19, Mrna, Lnp-s, Pf, B ivalent, 30 Mcg, IM, 12 yrs and above ([employer]) 05/10/2022 Pneumococcal Conjugate Vacc, 13 Valent [...] sandostatin 20mg injection, she brought paperwork from [facility] for denial. Received fax number from patient's paperwork. Will complete forms and fax to [facility] at for fast appeal ( is regular fax for appeal) Case #[id number] * Telephone Encounter - September DIAZ Vanegas - 01/20/2023 5:10 PM EDT Images from the original note were not included. * Telephone Encounter - Rabia DIAZ Vanegas - 01/20/2023 5:05 PM EDT [...] to appeal (we do not have a [facility] portal so will need the fax number on the denial. Thanks! * Telephone Encounter - Rabia DIAZ Vanegas - 01/20/2023 11:03 AM EDT The PET CT requested for Magdalena Payan has been denied by [facility]. Per [facility] denial reason: Your records do not show [...] removal of primary disease. After speaking with [facility] rep, P2P is not an option and an appeal would have to be completed. For Physician/Providers Use Only When Filing an Appeal: Portal Online Submission: Go to [email or web address] Thank you, DIAZ Serna 01/20/2023, 11:04 AM documented in this encounter Plan of Treatment Upcoming Encounters Date Type Specialty Care Team Description 02/07/2023 Office Visit Hematology Oncology Rubin Rendon MD [address] [place] [address] 02/16/2023 Office Visit Family Medicine Chelsey Mitchell DO [address] [place] [address] 02/22/2023 Immunization/Injecti o n Hematology Oncology Nurse, Med 4 [address] [facility] [place] [address] 03/22/2023 Immunization/Injecti o n Hematology Oncology Nurse, Med 4 [address] [facility] [place] [address] 04/19/2023 Immunization/Injecti o n Hematology Oncology Nurse, Med 4 [address] [facility] [place] [address] 04/28/2023 Office Visit Cardiology Rosa Tyler PA-C [address] [place] [address] 07/13/2023 [facility] [address] [place] [address] 10/23/2023 Nurse Only Nurse [facility] [address] [place] [address] Scheduled Procedures Name Priority Associated Diagnoses Date/Ti [...] 10/18/2023 10/17/2022, 04/05 CKD PHOS USE SMARTSET 57219 10/18/202310/03, 04/12/2021, 02/28/2020, Additional history exists DIABETES-FOOT EXAM 10/18/2023 10/17/2022, 0 10/07/2020, 08/12/2019, Additional history exists Depression Screening, Annual for Pts 12 and Over 10/18/2023 10/17/2022 TSH 10/18/2023 10/17/2022, 10/03, 11/26/2020, Additional history exists CKD HGB USE SMARTSET 78580 12/09/202312/08, 12/08/2022, 08/15/2022, Additional history exists DXA [...] this encounter Medical Devices Implanted Type Area Hris Analyst Device Identifier Shelf Expiration Date Model / Serial / Lot Lens 21.0 Mx60 - [id number] Implanted:Qty: 1 on 03/23/2016 by Jax Theodore MD at OR [facility] [employer] : SURGICAL 10/02/2018 MX60-21.0 / [id number] / [id number] Lens 21.5 Mx60 - [id number] - [id number] Implanted:Qty: 1 on 04/20/2016 by Jax Theodore MD at OR [facility] Right: Eye [employer] : SURGICAL 09/02/2018 MX60-21.5 / [id number] / [id number] documented as of this encounter Advance Directives [...] and were consensually agreed upon. Care Teams Ammonium Nitrate Neutralizer Relationship Specialty Start Date End Date [facility]sey Mitchell, [address] [facility] [address] PCP - General Family Medicine 07/10/18 documented as of this encounter
--- OUTSIDE RECORDS SUMMARY | 2023-06-11 13:25 | External Medical Summary | Summary of Care ---
Author Name Unknown Organization [facility] Address [address] [place] [address] Phone [phone] Care Team Providers Care Executive Services Administrator Name Role Phone Chelsey Mitchell DO Primary Care Provider [phone] Reason for Visit * Auth/Cert Specialty Diagnoses / Procedures Referred By Contac t Referred To Contact Diagnoses Aortic stenosis Aortic stenosis [I35.0] Procedures CORONARY ANGIOGRAPHY W/LEFT HEART CATH CORONARY ANGIOGRAPHY W/LEFT HEART CATH Referral ID Status Reason Start Date Expiration Date Visits Re quested Visits Authorized [id number] Encounter Details Date Type Department Care Team Description 02/10/2023 Hospital Encounter [facility] Waiting [facility], Cardiac Recovery Suite Waiting Unit, [address] [place] [address] Miles Zuleta, DO [address] [place] [address] Allergies Active Allergy Reactions Severity Noted Date Comments Bee Venom Abdominal pain,Edema face/lips/tongue High 02/17/2011 Sulfa Antibiotics Rash Medium 12/26/2007 documented as of this encounter (statuses as of 02/11/2023) Medications Medication Sig Dispensed Refills Start Date [...] Pain, Mild. 30 Tablet 0 02/08/2023 Active documented as of this encounter (statuses as of 02/11/2023) Active Problems Problem Noted Date Diabetic peripheral [...] as of this encounter (statuses as of 02/11/2023) Resolved Problems Problem Noted Date Resolved Date [...] as of this encounter (statuses as of 02/11/2023) Immunizations Name Administration Dates Next Due COVID-19 mRNA, LNP-s, No Pre serve, 2-Dose Series ([employer]) 10/01/2021,05/05/2021,09/10/2020,08/03 Covid-19, Mrna, Lnp-s, Pf, B ivalent, 30 Mcg, IM, 12 yrs and above ([employer]) 05/10/2022 Pneumococcal Conjugate Vacc, 13 Valent (Prevnar) [...] Sign Reading Time Taken Comments Blood Pressure 140/97 02/10/2023 1:25 PM EDT Pulse 60 02/10/2023 1:25 PM EDT Temperature 35.6 C (96.1 F) 02/10/2023 12:25 PM E DT Respiratory Rate 25 02/10/2023 1:25 PM EDT Oxygen Saturation 98% 02/10/2023 2:52 PM EDT Inhaled Oxygen Concentration - - Weight 83.9 kg (185 lb) 02/10/2023 10:49 AM EDT Height 157.5 cm (5' 2") 02/10/2023 10:49 AM EDT Body Mass Index 33.84 02/10/2023 10:49 AM EDT documented in this encounter Discharge Instructions * Discharge Instr - AVS* Akira Carlton, WOODEN FENCE ERECTOR - 02/10/2023 1:04 PM EDT CARDIAC RECOVERY SUITE Discharge Date: 02/10/2023 Check your Patient Education Brochure for further information. Please contact your physician, Dr. Zuleta of the Department of Cardiology at [phone], during business hours for any questions or testresults. For after-hour emergencies call [phone] and have your doctor paged. Scheduling Services is available daily between the hours of 8:00 a.m and 9:00 p.m. by calling . The information below provides you with the instructions and the list of medications you need to betaking following discharge from the hospital. If you have any questions, please ask before leaving.Please carry this letter with you when you see your doctor in the clinic. If you have questions, you can reach us at the numbers above. Diet: heart healthy diet, 2 gram sodium diet Progress to prescribed diet as tolerated. If nausea should occur, have clear liquids only until soft foods can be tolerated. Activity: No strenuous activity for 24 hours A responsible adult must be with the patient for 24 hours after surgery. Rest today and tomorrow, and then increase activity as tolerated. DO NOT operate any appliances and/or machinery or sign legal documents for 24 hours. You may resumedriving in 02/11/2023 Special Instructions: Radial Artery Catheterization Instructions for Post Care Activity: Do not use the arm we used for your procedure today. Do not lift more than 10 lbs for 3 days with arm used for procedure. A responsible adult must be with the patient for 24 hours after your procedure. Rest today but you may resume your usual activity tomorrow. Do not drive, operate any appliances and/or machinery or sign legal documents for 24 hours due to the anesthesia. You may return to work in 24 hours. You may wash the wrist with soap and water and you may shower. Do not soak the wrist in water without a waterproof bandage until the small incision is healed. If you notice bleeding, increased swelling, tingling in the fingers or pain in your forearm that is not relieved by Tylenol, please seek medical attention. If you develop a fever over 101 degrees F you should contact your maintenance worker municipal. It is normal to have a small amount of discomfort for up to one week following your procedure but this should continue to improve with time, not worsen. If you have any questions or are concerned with how your arm is healing, call the doctor who did your procedure at . Keep the puncture site covered with a dry bandage for 24 hours, then remove the bandage. You shouldreplace it every 24 hours or if it gets wet. This should be done until the puncture site has completely healed. See your primary care physician (Chelsey Mitchell DO) on 02/16/2023. See your cardiac surgeon (Diego Bright MD) on 03/06/2023. documented in this encounter H&P Notes * Miles Zuleta DO - 02/10/2023 11:01 AM EDT HISTORY & PHYSICAL INTERVAL NOTE - Cardiology Service [address] [address] History and Physical Update: Name: Magdalnea Payan Location: CATH/Cath Date: 02/10/2023 Time: 11:02 AM DATE OF HISTORY AND PHYSICAL: 01/25/2023 REFERRED BY: ISHAAN Hanson and Dr. Payam Amor Chief Complaint: SOB I have reviewed the H&P previously performed and examined the patient today. There are no new findings noted. Physical Examination: BP: 130 mmHg/ Pulse: 68 (02/10/23 1255) Temp: 35.61 C (02/10/23 1225) Resp: 20 (02/10/23 1255) SpO2: 95 % (02/10/23 1255) Cardiac: (+) murmur Lungs: normal respiratory effort, lungs clear to auscultation and percussion Right Radial pulse 1+ Allens test normal Right Femoral pulse 1+ Right Femoral Bruit no IV Contrast Allergy: no Contraindications to dual anti-platelet therapy: No History of anemia: No ASA: Received typical daily dose Anticoagulation: No Labs reviewed as indicated below: Latest Reference Range & Units 02/10/23 11:00 Sodium 135 - 146 mmol/L 138 Potassium 3.5 - 5.1 mmol/L 4.8 Chloride 98 - 107 mmol/L 104 CO2 22 - 32 mmol/L 22 BUN 6 - 20 mg/dL 42 (H) Creatinine 0.5 - 1.0 mg/dL 1.5 (H) Estimated Glomerular Filtration Rate >=60 mL/min 34 (L) Anion Gap 7 - 15 mmol/L 12 Glucose 70 - 120 mg/dL 146 (H) Calcium 8.4 - 10.2 mg/dL 9.7 Phosphorus 2.5 - 4.8 mg/dL 3.5 CBC Rpt WBC 4.00 - 10.80 K/uL 6.76 HGB 12.0 - 15.3 g/dL 12.7 HCT 36.0 - 45.2 % 40.8 MCV 81.5 - 97.5 fL 91.7 PLT 140 - 400 K/uL 152 Albumin 3.8 - 5.0 g/dL 4.1 ISHAAN Medel INFORMED CONSENT FOR CARDIAC CATH AND INTERVENTIONAL PROCEDURES: I discussed with patient the alternatives to cardiac cath including medical therapy and if appropriate exercise testing. I discussed the risks of cath including 08/999 , AL, CVA and 2/100 risk of allergic reaction, bleeding, infection, arrhythmia requiring shock, damage to artery requiring surgery or amputation, radiation skin young. I discussed technique of catheterization. The patient indicated understanding and a preference for proceeding with catheterization considering these factors. I discussed with the patient coronary intervention and alternatives including bypass surgery and medical therapy. I discussed the risks of intervention including 5-10% risk of AL, 5% risk of bleeding possibly requiring transfusion, 1% risk of , 1% risk of emergency CABG, and 20- 30% risk of restenosis, and the chance that even a successful procedure will not relieve symptoms if they are not due to cardiac ischemia. The patient would like to have ad hoc intervention done at the time of the ca theterization if it seems appropriate. * ISHAAN Sorensen - 02/09/2023 8:36 AM EDT Cardiology H&P The note below has been copied and pasted from an office visit with ISHAAN Hanson and Dr. Payam Amor on 01/25/2023. I have reviewed the advanced practitioner documentation [...] Payam Amor MD MPH Interventional Cardiology Pager: [phone] 01/25/23 9:48 AM Progress Notes ISHAAN Naidu (Certified Registered Nurse Practitioner) Nurse Practitioner [facility] Cardiology Outpatient Clinic Note 01/25/2023 Patient disposition: NEW PATIENT Primary Commercial Project Manager Dr. Sparks Past medical history: Severe aortic [...] Mild. 30 Tablet 0 ONETOUCH ULTRASOFT LANCETS MISC Use one time [...] KNEE TOTAL [address] Qureshi, [facility] CARDIAC CATH INJ. FOR CORONARY ANGIOGRAPHY 09/2012 [facility], no significant CAD COLONOSCOPY, DIAGNOSTIC (RECTUM) 02/08/2017 polyp removed not retrieved, diverticulosis/[facility] DILATION AND CURETTAGE (D&C) 1999 after postmenopausal bleeding. EGD, FLEXIBLE, DIAGNOSTIC 02/08/2017 mild-mod inflammation, Schatzki ring, repeat 2 mo/[facility] EGD, FLEXIBLE, DIAGNOSTIC 04/10/2017 mild-mod inflammation on bx, gastric ulcer, repeat 6-8 wks/[facility] EGD, FLEXIBLE, DIAGNOSTIC 05/23/2017 well differentiated neuroendocrine tumor / [facility] EGD, FLEXIBLE, DIAGNOSTIC 08/31/2017 gastritis, repeat 1 yr/[facility] EGD, W/ENDOSCOPIC US N/A 06/08/2017 ESOPHAGOGASTRODUODENOSCOPY (EGD), FLEXIBLE, TRANSORAL, ENDOSCOPIC ULTRASOUND performed by Chapincito Saha MD at ENDOSCOPY [facility] EGD, W/ENDOSCOPIC US N/A 06/22/2018 ESOPHAGOGASTRODUODENOSCOPY (EGD), FLEXIBLE, TRANSORAL, ENDOSCOPIC ULTRASOUND performed by Chapincito Saha MD at ENDOSCOPY [facility] EGD, W/ENDOSCOPIC US N/A 07/24/2018 ESOPHAGOGASTRODUODENOSCOPY (EGD), FLEXIBLE, TRANSORAL, ENDOSCOPIC ULTRASOUND performed by Chapincito Saha MD at ENDOSCOPY [facility] EGD, W/ENDOSCOPIC US N/A 08/06/2019 ESOPHAGOGASTRODUODENOSCOPY (EGD), FLEXIBLE, TRANSORAL, ENDOSCOPIC ULTRASOUND performed by Chapincito Saha MD at ENDOSCOPY [facility] LUMBAR DISC ARTHROPLAST,REMV,ADDL INTERSPCE 2010 Br Rhona, lumbar 3 levels she thinks MOHS IMAGE (BIOMED) [address] Nielsen. REMOVE CATARACT, INSERT LENS PROSTH Right 04/20/2016 EXTRACAPSULAR CATARACT REMOVAL WITH INTRAOCULAR LENS performed by Jax Theodore MD at OR [facility] Social History Tobacco Use Smoking status: [...] coronary angiography, and surgical risk stratification at [facility]. Valve clinic will arrange. 2. SSS (sick sinus syndrome) (HCC) 3. Cardiac pacemaker in situ -Sick sinus [...] performance of separately billed services. ISHAAN Hanson documented in this encounter Miscellaneous Notes * Ancillary Progress Note - RT Silvestre - 02/10/2023 1:11 PM EDT [address] [address] Ancillary Progress Note Patient Name: Magdalena Payan Date: 02/10/2023 Patient will be escorted to Cardiac Recovery Suite. We performed a diagnostic cardiac catheterization procedure on this patient. The right radial artery was used for access with a 6 Armenian sheath. A Radial Band was applied at 9 mL. of air to close the site. There is no hematoma and no ooze from thecath site noted. No sterile dressing applied to site. Radial band applied. Distal pulses were palpated and instructions to patient were given. There were no complications during the case. Please see the MAR for the medications that were given. See Cath Procedure Log for patient vitals during the case. * Communication - Miles Zuleta DO - 02/10/2023 12:21 PM EDT [address] [address] CARDIAC LOAN INTERVIEWER BRIEF PROCEDURE NOTE Name: Magdalena Payan Date: 02/10/2023 Time: 12:21 PM Location: CARDIAC LABS [facility] Date of Procedure: 02/10/2023 Pre-op Diagnosis: Valve disease Post-op Diagnosis: No or minimal coronary artery disease Procedure: Coronary angiography Concrete Mixer Loader Truck Mounted: Dr Zuleta Neuropsychology Director(s): none Anesthesia: Monitored local anesthesia with sedation Additional Findings: Coronary disease - hemodynamically insignificant Prox RCA 20% otherwise angiographically normal coronaries Complications: none Condition of patient: Stable Recommendations: no revascularization needed prior to or at time of AVR As required by [place] Act 112, the Patient Test Result Information Act, I have discussed withthe patient the significant findings from the diagnostic imaging service performed today. They haveexpressed their understanding and signed the acknowledgement form. Miles Zuleta DO * Communication - Miles Zuleta DO - 02/10/2023 11:36 AM EDT INFORMED CONSENT FOR CARDIAC CATH AND INTERVENTIONAL PROCEDURES: Dr. Zuleta discussed with patient the alternatives to cardiac cath including medical therapy and if appropriate exercise testing. Dr. Zuleta discussed the risks of cath including 08/999 , AL, CVA and 2/100 risk of allergic reaction, bleeding, infection, arrhythmia requiring shock, damage to artery requiring surgery or amputation, radiation skin young. Dr. Zuleta discussed technique of catheterization. The patient indicated understanding and a preference for proceeding with catheterization considering these factors. Dr. Zuleta discussed with the patient coronary intervention and alternatives including bypass surgery and medical therapy. Dr. Zuleta discussed the risks of intervention including 5-10% risk of AL, 5% risk of bleeding possibly requiring transfusion, 1% risk of , 1% risk of emergency CABG, and 20- 30% risk of restenosis, and the chance that even a successful procedure will notrelieve symptoms if they are not due to cardiac ischemia. The patient would like to have ad hoc intervention done at the time of the catheterization if it seems appropriate. * Progress Notes - Non-Billable - Billie Rain MD - 02/10/2023 8:13 AM EDT Images from the original note were not included. PROGRESS NOTE - Interventional Cardiology [facility]-[address] [address] Name: Magdalena Payan Date: 02/10/2023 Time: 8:14 AM Name: Magdalena Payan Referring Provider: Dr. Amor [facility]: [phone] Referring Commercial Project Manager: same as above, Dr. Sparks (primary Commercial Project Manager) Procedure Requested: Coronary angiography Indication for Cath: Valvular Disease- severe Medical History Medication List (+) DM, if yes, what meds: Tradjenta Prior to Admission medications Medication Sig Last Dose Discont. HYDROcodone-Acetaminophen 5-325 MG Oral Tablet Take 1 Tablet by mouth every 6 hours as needed for Pain, Mild. OneTouch Verio In Vitro Strip (Glucose Blood) use as directed to test blood sugar once a day Omeprazole 40 MG Oral Capsule Delayed Release (PriLOSEC) TAKE 1 CAPSULE BY MOUTH ONCE DAILY 1 hour before the first meal of the day Lisinopril 40 MG Oral Tablet TAKE 1 TABLET BY MOUTH ONCE DAILY Levothyroxine Sodium 100 MCG Oral Tablet (Levoxyl) take one tablet by mouth daily at least 30 minutes before breakfast and other medications Atorvastatin Calcium 20 MG Oral Tablet (Lipitor) TAKE 1 TABLET BY MOUTH ONCE DAILY hydroCHLOROthiazide 25 MG Oral Tablet (Hydrodiuril) TAKE HALF TABLET BY MOUTH DAILY Tradjenta 5 MG Oral Tablet (linaGLIPtin) TAKE 1 TABLET BY MOUTH ONCE DAILY Metoprolol Tartrate 25 MG Oral Tablet (Lopressor) TAKE 1 TABLET BY MOUTH TWICE DAILY Meclizine HCl 12.5 MG Oral Tablet (Antivert) TAKE ONE TABLET BY MOUTH THREE TIMES DAILY if needed for dizziness Acetaminophen 500 MG Oral Tablet (Tylenol) Take 1 Tablet by mouth every 6 hours as needed. Adult Gummy Oral Tablet Chewable Take 2 Each by mouth daily. Vitamin C 100 MG Oral Tablet Chewable Take 1 Tablet by mouth in the morning. Vitamin D (Cholecalciferol) 10 MCG (400 UNIT) Oral Tablet Chewable Take 1 Tablet by mouth in the morning. Diclofenac Sodium (VOLTAREN) 1 % gel Place 2 g topically on the skin 2 times a day. To affected area as directed. ONETOUCH ULTRASOFT LANCETS MISC Use one time a day in the morning. E11.9 ASPIRIN 81 MG PO TABS one a day (+) HTN (-) Prior CHF in last 2 weeks (-) PVD (-) Dialysis (-) Smoked in the past year (+) HLD (-) Family heart disease (male<55, female<65) (-) Prior AL (-) Prior PCI, if yes, when: n/a (-) Valve Surgery (-) CABG, if yes, when n/a (-) Stroke/TIA (-) COPD/Emphysema (+) ASA in the last 24 hours (-) Dual Anti-platelet Therapy, if yes, what med: n/a (-) History of HIT (-) Allergic to Dye, if yes, were they prepped: n/a Review of patient's allergies indicates: Allergen Reactions Bee Venom Abdominal pain and Edema face/lips/tongue Sulfa Antibiotics Rash CSHA Frailty Score: 3 Very Fit - 1 Well - 2 Managing Well - 3 Vulnerable - 4 Mildly Frail - 5 Moderately Frail - 6 Severely Frail - 7 Very Severely Frail - 8 Terminally Ill - 9 Current Presentation Admission Date: 02/10/23 | Admission Time: 10a Anti-Anginals in the last 2 weeks: + Beta Blockers | - Calcium Channel | - Long Acting Nitrates LV Dysfunction/ Cardiomyopathy: No EF in last 6 months: 65-69 % Stress Test (Last 6 months): no Labs Last Creatinine: Lab Results Component Value Date/Time CREATININE - [facility] 1.5 (H) 12/08/2022 09:49 AM CREATININE - [facility] 1.5 (H) 04/09/2020 11:08 AM CREATININE ANDRE 168 11/12/2014 10:48 AM CREATININE, 24 HOUR URINE - [facility] 0.64 07/10/2018 05:00 AM CREATININE, RANDOM URINE - [facility] 134 10/17/2022 11:48 AM CREATININE, RANDOM URINE - [facility] 132 04/18/2018 11:01 AM CREATININE-OUTSIDE LAB 1.39 (A) 08/01/2017 12:00 AM Last GFR: No components found for: E GLOM FILT RATE Last INR: INR ( ) Date Value 09/24/2012 1.09 Last Hb/Hct: HGB (g/dL) Date Value 12/08/2022 12.7 12/20/2019 13.3 HCT (%) Date Value 12/08/2022 41.1 12/20/2019 41.6 [facility] 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 TTE 12/07/22 Interpretation Summary The examination is adequate to [...] increased reaching criteria for severe aortic stenosis [facility] 09/27/12 documented in this encounter Plan of Treatment Upcoming Encounters Date Type Specialty Care Team Description 02/16/2023 Office Visit Family Medicine Chelsey Mitchell DO [address] [place] [address] 02/22/2023 Immunization/Injection Hematology Oncolog y Nurse, Med [address] [place] [address] 03/06/2023 Office Visit Cardiothoracic Surgery Diego Bright MD [address] [place] [address] 03/06/2023 Appointment Radiology 03/22/2023 Immunization/Injection Hematology Oncolog y Nurse, Med [address] [place], [place] [address] 04/19/2023 Immunization/Injection Hematology Oncolog y Nurse, Med [address] [place], [place] [address] 04/28/2023 Office Visit Cardiology Rosa Tyler PA-C [address] [place] [address] 07/13/2023 Cardiac Studies Cardiology [facility], Pacer [facility] [address] [place] [address] 08/08/2023 Office Visit Hematology Oncology Rubin Rendon MD [address] [facility] [place] [address] 10/23/2023 Nurse Only Ancillary Nurse [facility] [address] [place] [address] Scheduled Orders Name Type Priority Associated Diagnoses Orde r Schedule EKG EKG Routine Chest pain One Time for 1 Occurrences starting 02/10/2023 until 02/10/2023 Scheduled Procedures Name Priority Associated Diagnoses Date/Ti [...] Additional history exists CKD HGB USE SMARTSET 14250 02/11/202402/10, 12/08/2022, 12/08/2022, Additional history exists CKD PHOS USE SMARTSET 43377 02/11/2024 090 01/2023, 10/17/2022, 04/12/2021, Additional history exists DXA [...] this encounter Medical Devices Implanted Type Area Cosmetics Presser Device Identifier Shelf Expiration Date Model / Serial / Lot Lens 21.0 Mx60 - [id number] Implanted:Qty: 1 on 03/23/2016 by Jax Theodore MD at OR [facility] [employer] : SURGICAL 10/02/2018 MX60-21.0 / [id number] / [id number] Lens 21.5 Mx60 - [id number] - [id number] Implanted:Qty: 1 on 04/20/2016 by Jax Theodore MD at OR [facility] Right: Eye [employer] : SURGICAL 09/02/2018 MX60-21.5 / [id number] / [id number] documented as of this encounter Procedures Procedure Name Priority Date/Time Associated Diagnosis Comments RENAL FUNCTION PANEL STAT 02/10/2023 11:00 AM EDT CBC STAT 02/10/2023 11:00 AM EDT CARDIAC CATHETERIZATION REPORT Routine 02/10/2023 documented in this encounter Results * (ABNORMAL) RENAL FUNCTION PANEL (02/10/2023 11:00 AM EDT) BUN 42(H) 6 - 20 mg/dL 02/10/2023 11:42 AM EDT LAB[facility]ATORY [facility] Creatinine 1.5(H) 0.5 - 1.0 mg/dL 02/10/2023 11:42 AM EDT LAB[facility]ATORY [facility] Estimated Glomerular Filtration Rate 34(L) >=60 mL/min 02/10/2023 11:42 AM EDT LAB[facility] Comment:eGFR is calculated b ased on the CKD-EPI 2020 equation Sodium 138 135 - 146 mmol/L 02/10/2023 11:42 AM EDT LAB[facility]ATORY [facility] Potassium 4.8 3.5 - 5.1 mmol/L 02/10/2023 11:42 AM EDT LAB[facility]ATORY [facility] Chloride 104 98 - 107 mmol/L 02/10/2023 11:42 AM EDT LAB[facility]ATORY [facility] CO2 22 22 - 32 mmol/L 02/10/2023 11:42 AM EDT LAB[facility]ORY [facility] Anion Gap 12 7 - 15 mmol/L 02/10/2023 11:42 AM EDT LAB[facility]ATORY [facility] Glucose 146(H) 70 - 120 mg/dL 02/10/2023 11:42 AM EDT LAB[facility]ATORY [facility] Calcium 9.7 8.4 - 10.2 mg/dL 02/10/2023 11:42 AM EDT LAB[facility]ATORY [facility] Albumin 4.1 3.8 - 5.0 g/dL 02/10/2023 11:42 AM EDT LAB[facility]ORY [facility] Phosphorus 3.5 2.5 - 4.8 mg/dL 02/10/2023 11:42 AM EDT LAB[facility]ATORY [facility] Blood Venous blood specimen / Unknown Venipuncture / Unknown 02/10/2023 11:00 AM EDT 02/10/2023 11:16 AM EDT Tyron QUIROS LAB BLOOD ORDERABLE S Performing Organization Address City/[facility]/ZIP Co de Phone Number [facility]ORY [facility] [address] [place] [address] * CBC (02/10/2023 11:00 AM EDT) WBC 6.76 4.00 - 10.80 K/uL 02/10/2023 11:32 AM EDT LAB[facility]ATORY [facility] RBC 4.45 3.85 - 5.15 M/uL 02/10/2023 11:32 AM EDT LABORATORY [facility] HGB 12.7 12.0 - 15.3 g/dL 02/10/2023 11:32 AM EDT LAB[facility]ATORY [facility] HCT 40.8 36.0 - 45.2 % 02/10/2023 11:32 AM EDT LAB[facility]ATORY [facility] MCV 91.7 81.5 - 97.5 fL 02/10/2023 11:32 AM EDT LABORATORY [facility] MCH 28.5 27.0 - 34.0 pg 02/10/2023 11:32 AM EDT LABORATORY [facility] MCHC 31.1 32.0 - 36.0 g/dL 02/10/2023 11:32 AM EDT LAB[facility]ATORY [facility] RDW 15.7 11.5 - 15.5 % 02/10/2023 11:32 AM EDT LABORATORY [facility] PLT 152 140 - 400 K/uL 02/10/2023 11:32 AM EDT LAB[facility]ATORY [facility] MPV 10.6 6.6 - 11.1 fL 02/10/2023 11:32 AM EDT LABORATORY GM nRBCs 0 <=0 /100 WBCs 02/10/2023 11:32 AM EDT LAB[facility]ATORY [facility] Blood Venous blood specimen / Unknown Venipuncture / Unknown 02/10/2023 11:00 AM EDT 02/10/2023 11:16 AM EDT Tyron QUIROS LAB BLOOD ORDERABLE S LAB[facility] [address] [place] [address] * CARDIAC CATHETERIZATION REPORT (02/10/2023) DATE OF PROCEDURE 02/10/2023 [facility] DIAGNOSTIC Miles Banegas DO [facility] CONCLUSIONS * Mild, single vessel non-obstructive CAD with prox RCA 20%. Remainder of coronaries are angiographically normal. [facility] PROCEDURES Coronary Angiography 0:23-0:37 hours:minutes Sedation [facility] TOTAL CONTRAST VOLUME 50 ml [facility] TOTAL RADIATION 0.14 Gy [facility] COMPLICATIONS No complication None [facility] 02/10/2023 02/10/2023 12: 46 PM EDT Payam Amor MD CARD CATH [facility] documented in this encounter Visit Diagnoses Diagnosis Chest pain Chest pain, unspecified documented in this encounter Administered Medications Inactive Administered Medications - up to 3 most recent administrations Medication Order MAR Action Action Date Dose Rate Site Acetaminophen (Tylenol) tab 650 mg 650 mg, Oral, Q6H PRN Pain, Mild, Other, non cardiac pain, Starting on Mon02/10/23 at 1220, Until Mon02/10/23 at 2201, Maximum of 4 grams (4000 mg) per day., Post-op atorvaSTATin (Lipitor) tab 20 mg 20 mg, Oral, ONCE, On Mon02/10/23 at 1200, For 1 dose Given 02/10/2023 11:21 AM EDT 20 mg atorvaSTATin (Lipitor) tab 40 mg 40 mg, Oral, ONCE, On Mon02/10/23 at 1200, For 1 dose Given 02/10/2023 11:22 AM EDT 40 mg fentaNYL (PF) inj 25 mcg 25 mcg, IV Push, PRN Pain, Severe, Starting on Mon02/10/23 at 1147, Until Mon02/10/23 at 1346, For 2 hours, To be administered in Cardiac [facility] intra-procedure only When given IV Push its recommended that the dose be given over 3 to 5 minutes. , Intra-Op Given 02/10/2023 11:54 AM EDT 25 mcg hEParin inj 5,000 Units 5,000 Units, IV Push, PRN Other, Anticoagulation not at goal, Starting on Mon02/10/23 at 1147, Until Mon02/10/23 at 1346, For 2 hours, To be administered in Cardiac [place] [place] intra-procedure., Intra-Op Given 02/10/2023 12:08 PM EDT 5,000 Units midazolam (Versed) 2 MG/2ML inj 0.5 mg 0.5 mg, IV Push, PRN Anxiety, Starting on Mon02/10/23 at 1147, Until Mon02/10/23 at 1346, For 2 hours, To be administered in Cardiac [place] intra-procedure only, Intra-Op Given 02/10/2023 11:54 AM EDT 0.5 mg NSS infusion Intravenous, at 100 mL/hr, CONTINUOUS, Starting on Mon02/10/23 at 1000, Until Mon02/10/23 at 195, Pre-Op New Bag 02/10/2023 11:14 AM EDT 100 mL/hr documented in this encounter Active and Recently Administered Medications Times are shown in EDT. Scheduled Medication Order 02/08/2023 02/09/2023 02/10/2023 atorvaSTATin (Lipitor) tab 20 mg (COMPLETED) 20 mg, Oral, ONCE, On Mon02/10/23 at 1200, For 1 dose 1121 (Given - Provid er: Sally Madera RN) atorvaSTATin (Lipitor) tab 40 mg (COMPLETED) 40 mg, Oral, ONCE, On Mon02/10/23 at 1200, For 1 dose 1122 (Given - Provid er: Sally Madera RN) Continuous Medication Order 02/08/2023 02/09/2023 02/10/2023 NSS infusion Intravenous, at 100 mL/hr, CONTINUOUS, Starting on Mon02/10/23 at 1000, Until Mon02/10/23 at 195, Pre-Op 111 (New Bag - Prov ider: Sally Madera RN)2200 (Due: Stopped) PRN Medication Order 02/08/2023 02/09/2023 02/10/2023 Acetaminophen (Tylenol) tab 650 mg 650 mg, Oral, Q6H PRN Pain, Mild, Other, non cardiac pain, Starting on Mon02/10/23 at 1220, Until Mon02/10/23 at 2201, Maximum of 4 grams (4000 mg) per day., Post-op fentaNYL (PF) inj 25 mcg 25 mcg, IV Push, PRN Pain, Severe, Starting on Mon02/10/23 at 1147, Until Mon02/10/23 at 1346, For 2 hours, To be administered in Cardiac [place] intra-procedure only When given IV Push its recommended that the dose be given over 3 to 5 minutes. , Intra-Op 1154 (Given - Provid er: Madhavi De La Cruz RN) hEParin inj 5,000 Units 5,000 Units, IV Push, PRN Other, Anticoagulation not at goal, Starting on Mon02/10/23 at 1147, Until Mon02/10/23 at 1346, For 2 hours, To be administered in Cardiac [place] intra-procedure., Intra-Op 1208 (Given - Provid er: Madhavi De La Cruz RN) midazolam (Versed) 2 MG/2ML inj 0.5 mg 0.5 mg, IV Push, PRN Anxiety, Starting on Mon02/10/23 at 1147, Until Mon02/10/23 at 1346, For 2 hours, To be administered in Cardiac [place] intra-procedure only, Intra-Op 1154 (Given - Provid er: Madhavi De La Cruz RN) documented in this encounter Advance Directives Latest [...] and were consensually agreed upon. Care Teams Executive Services Administrator Relationship Specialty Start Date End Date Chelsey Mitchell, [address] [place], [place] [phone] PCP - General Family Medicine 07/10/18 documented as of this encounter
--- OUTSIDE RECORDS SUMMARY | 2023-06-11 13:25 | External Medical Summary | Summary of Care ---
Author Name Unknown Organization [facility] Address [address] [place] [address] Phone [phone] Care Team Providers Care Private Duty Nurse Name Role Phone Chelsey Mitchell DO Primary Care Provider [phone] Reason for Visit * Reason Onset Date Comments Precert Denied 01/20/2023 Encounter Details Date Type Department Care Team Description 01/20/2023 Telephone Hematology/Oncology [facility] [address] [place] [address] Rubin Rendon MD [address] [place] [address] Precert Denied Allergies Active Allergy Reactions Severity [...] mRNA, LNP-s, No Pre serve, 2-Dose Series (Floxx) 10/01/2021,05/05/2021,09/10/2020,08/03 Covid-19, Mrna, Lnp-s, Pf, B ivalent, 30 Mcg, IM, 12 yrs and above (Floxx) 05/10/2022 Pneumococcal Conjugate Vacc, 13 Valent (Prevnar) [...] sandostatin 20mg injection, she brought paperwork from [employer] for denial. Received fax number from patient's paperwork. Completed forms and fax to [employer] at for fast appeal ( is regular fax for appeal) Case #[id number] Completed letter and pending on pantera's signature * Telephone Encounter - DIAZ Serna - 01/20/2023 5:10 PM EDT Images from the original note were not included. * Telephone Encounter - Rabia BoucherelielkayeDIAZ - 01/20/2023 5:05 PM EDT Images from the original note were not included. * Telephone Encounter - Rabia DIAZ Vanegas - 01/20/2023 4:58 PM EDT Images from the original note were not included. * Telephone Encounter - Ann Marie Porter RN - 01/20/2023 12:15 PM EDT Patient had PET 01/18/23, appeal will need to be done. Precert: please have denial letter scanned in so that we will know how to appeal (we do not have a [facility] portal so will need the fax number on the denial. Thanks! * Telephone Encounter - Rabia DIAZ Vanegas - 01/20/2023 11:03 AM EDT The PET CT requested for Magdalena Rhea Contehsheelaleigha has been denied by [facility]. Per [facility] denial reason: Your records do not show [...] removal of primary disease. After speaking with [employer] rep, P2P is not an option and an appeal would have to be completed. For Physician/Providers Use Only When Filing an Appeal: Portal Online Submission: Go to [email or web address] Thank you, DIAZ Serna 01/20/2023, 11:04 AM documented in this encounter Plan of Treatment Upcoming Encounters Date Type Specialty Care Team Description 02/07/2023 Office Visit Hematology Oncology Rubin Rendon MD [address] [place] [address] 02/16/2023 Office Visit Family Medicine Chelsey Mitchell DO [address] [place] [address] 02/22/2023 Immunization/Injecti o n Hematology Oncology Nurse, Med [address] [facility] [place] [address] 03/22/2023 Immunization/Injecti o n Hematology Oncology Nurse, Med [address] [facility] [place] [address] 04/19/2023 Immunization/Injecti o n Hematology Oncology Nurse, Med [address] [facility] [place] [address] 04/28/2023 Office Visit Cardiology Rosa Tyler PA-C [address] [place] [address] 07/13/2023 Cardiac Studies Cardiology [facility] [address] [place] [address] 10/23/2023 Nurse Only Nurse [facility] [address] [place] [address] Scheduled Procedures Name Priority Associated Diagnoses Date/Ti [...] 10/18/2023 10/17/2022, 04/05 CKD PHOS USE SMARTSET 37747 10/18/202310/03, 04/12/2021, 02/28/2020, Additional history exists DIABETES-FOOT EXAM 10/18/2023 10/17/2022, 0 10/07/2020, 08/12/2019, Additional history exists Depression Screening, Annual for Pts 12 and Over 10/18/2023 10/17/2022 TSH 10/18/2023 10/17/2022, 10/03, 11/26/2020, Additional history exists CKD HGB USE SMARTSET 45347 12/09/202312/08, 12/08/2022, 08/15/2022, Additional history exists DXA [...] this encounter Medical Devices Implanted Type Area Order Make Up Clerk Device Identifier Shelf Expiration Date Model / Serial / Lot Lens 21.0 Mx60 - [id number] Implanted:Qty: 1 on 03/23/2016 by Jax Theodore MD at OR [facility] [employer] : SURGICAL 10/02/2018 MX60-21.0 / [id number] / [id number] Lens 21.5 Mx60 - [id number] - [id number] Implanted:Qty: 1 on 04/20/2016 by Jax Theodore MD at OR [facility] Right: Eye [employer] : SURGICAL 09/02/2018 MX60-21.5 / [id number] / [id number] documented as of this encounter Advance Directives [...] and were consensually agreed upon. Care Teams Private Duty Nurse Relationship Specialty Start Date End Date Chelsey Mitchell, [address] [place] [address] PCP - General Family Medicine 07/10/18 documented as of this encounter
--- OUTSIDE RECORDS SUMMARY | 2023-06-11 13:25 | External Medical Summary ---
Author Name Unknown Address Unknown Organization K01:[facility] [place] - [facility] [place] [facility] [place] [address] [facility] [address] [place] [address] Laboratory Report Ordering Provider Test Date Status CHEMA CASTILLO 02/10/2023 11:00:59 Final Observation Date Value Abnormality Reference (Units ) Status WBC, Total 02/10/2023 11:00:59 6.76 4.00-10.80 (K/uL) Final RBC 02/10/2023 11:00:59 4.45 3.85-5.15 (M/uL) Final Hemoglobin 02/10/2023 11:00:59 12.7 12.0-15.3 (g/dL) Final HCT 02/10/2023 11:00:59 40.8 36.0-45.2 (%) Final MCV 02/10/2023 11:00:59 91.7 81.5-97.5 (fL) Final MCH 02/10/2023 11:00:59 28.5 27.0-34.0 (pg) Final MCHC 02/10/2023 11:00:59 31.1 32.0-36.0 (g/dL) Final RDW 02/10/2023 11:00:59 15.7 11.5-15.5 (%) Final Platelets 02/10/2023 11:00:59 152 140-400 (K/uL) Final MPV 02/10/2023 11:00:59 10.6 6.6-11.1 (fL) Final Nucleated erythrocytes/100 leukocytes [Ratio] in Blood by Automated count 02/10/2023 11:00:59 0 <=0 (/100 WBCs) Final Performing Location [facility] [place] - [address] [place] [address]
--- OUTSIDE RECORDS SUMMARY | 2023-06-11 13:25 | External Medical Summary | Summary of Care ---
Author Name Unknown Organization [facility] Address [address] [place] [address] Phone [phone] Care Team Providers Care Industrial Design Engineer Name Role Phone Chelsey Mitchell DO Primary Care Provider Encounter Details Date Type Department Care Team Description 01/24/2023 Documentation Cardiac Studies [facility] [address] [place] [address] Елена Soliman, RN Allergies Active Allergy Reactions Severity Noted Date Comments Bee Venom Abdominal pain,Edema face/lips/tongue High 02/17/2011 Sulfa Antibiotics Rash Medium 12/26/2007 documented as of this encounter (statuses as of 01/24/2023) Medications Medication Sig Dispensed Refills Start Date [...] for dizziness 30 Tablet 1 06/08/2021 Active OneFcouch Verio In Vitro Strip (Glucose Blood) use [...] as of this encounter (statuses as of 01/24/2023) Active Problems Problem Noted Date Diabetic peripheral [...] as of this encounter (statuses as of 01/24/2023) Resolved Problems Problem Noted Date Resolved Date [...] as of this encounter (statuses as of 01/24/2023) Immunizations Name Administration Dates Next Due COVID-19 mRNA, LNP-s, No Pre serve, 2-Dose Series (Interlude) 10/01/2021,05/05/2021,09/10/2020,08/03 Covid-19, Mrna, Lnp-s, Pf, B ivalent, [...] as of this encounter Progress Notes * Елена Soliman RN - 01/24/2023 2:03 PM EDT Images from the original note were not included. documented in this encounter Plan of Treatment Upcoming Encounters Date Type Specialty Care Team Description 01/25/2023 [facility] Visit [facility] [address] [facility] [address] 01/25/2023 Immunization/Injecti o n Hematology Oncology Nurse, Med [address] [place] [address] 02/07/2023 Office Visit Hematology Oncology Rubin Rendon MD [address] [place] [address] 02/16/2023 Office Visit Family Medicine Chelsey Mitchell DO [address] [place] [address] 04/28/2023 Office Visit Cardiology Rosa Tyler PA-C [address] [facility] [place] [address] 07/13/2023 Cardiac Studies Cardiology [facility], [facility] [address] [place] [address] 10/23/2023 Nurse Only Ancillary [place], Nurse [facility] [address] [place] [address] Scheduled Procedures Name Priority Associated Diagnoses Date/Ti [...] 10/18/2023 10/17/2022, 04/05 CKD PHOS USE SMARTSET 40504 10/18/202310/03, 04/12/2021, 02/28/2020, Additional history exists DIABETES-FOOT EXAM 10/18/2023 10/17/2022, 0 10/07/2020, 08/12/2019, Additional history exists Depression Screening, Annual for Pts 12 and Over 10/18/2023 10/17/2022 TSH 10/18/2023 10/17/2022, 10/03, 11/26/2020, Additional history exists CKD HGB USE SMARTSET 64320 12/09/202312/08, 12/08/2022, 08/15/2022, Additional history exists DXA [...] this encounter Medical Devices Implanted Type Area Physician Executive Device Identifier Shelf Expiration Date Model / Serial / Lot Lens 21.0 Mx60 - [id number] Implanted:Qty: 1 on 03/23/2016 by Jax Theodore MD at OR [facility] [employer] : SURGICAL 10/02/2018 MX60-21.0 / [id number] / [id number] Lens 21.5 Mx60 - [id number] - [id number] Implanted:Qty: 1 on 04/20/2016 by Jax Theodore MD at OR [facility] Right: Eye [employer] : SURGICAL 09/02/2018 MX60-21.5 / [id number] / [id number] documented as of this encounter Advance Directives [...] and were consensually agreed upon. Care Teams Industrial Design Engineer Relationship Specialty Start Date End Date Chelsey Mitchell, [address] [place] [address] PCP - General Family Medicine 07/10/18 documented as of this encounter
--- OUTSIDE RECORDS SUMMARY | 2023-06-11 13:26 | External Medical Summary | Summary of Care ---
Author Name Unknown Organization [facility] Address [address] [place] [address] Phone [phone] Care Team Providers Care Lock Operator Name Role Phone Chelsey Mitchell DO Primary Care Provider + [phone] Reason for Visit * Reason Comments Re-Check 6 [facility] Encounter Details Date Type Department Care Team Description 10/13/[address] [facility] [address] [place] [address] Chelsey Mitchell DO [address] [place] [address] Type 2 diabetes mellitus with stage 3b chronic kidney disease, with long-term current use of insulin (HCC)*; Risk and functional assessment; HTN, goal below 130/80; Other specified hypothyroidism; Aortic valve sclerosis; Dyslipidemia, goal LDL below 100; Generalized osteoarthritis; Hypertensive kidney disease with stage 3b chronic kidney disease; Iron deficiency anemia, unspecified iron deficiency anemia type; Screening for osteoporosis Allergies Active Allergy Reactions Severity Noted Date Comments Bee Venom Abdominal pain,Edema face/lips/tongue High 02/17/2011 Sulfa Antibiotics Rash Medium 12/26/2007 documented as of this encounter (statuses as of 01/06/2023) Medications Medication Sig Dispensed Refills Start Date End Date Status ASPIRIN 81 MG PO TABS one a day 0 Active ONETOUCH ULTRASOFT LANCETS MISC Use one time a day in the morning. E11.9 1 Box Dosing Unit 11 07/19/201 9 Active Diclofenac Sodium (VOLTAREN) 1 % [...] for dizziness 30 Tablet 1 2 Active Lisinopril 40 MG Oral TabletIndications:H TN, goal below 130/80 TAKE ONE TABLET BY MOUTH DAILY 90 Tab 3 1 11/19/19 22 Discontinued Atorvastatin Calcium 20 MG Oral Tablet (Lipitor)Indication s:Dyslipidemia, goal LDL below 100 TAKE 1 TABLET BY MOUTH ONCE DAILY 90 Tab 3 1 01/12/20 22 Discontinued Levothyroxine Sodium 100 MCG Oral Tablet (Levoxyl)Indication s:Hypothyroidism take one tablet by mouth daily at least 30 minutes before breakfast and other medications 90 Tab 2 1 10/27/19 22 Discontinued Kim Inman In Vitro Strip (Glucose Blood) use a s directed to test blood sugar once a day 100 Strip 3 1 03/08/20 22 Discontinued Omeprazole 40 MG Oral Capsule Delayed Release (PriLOSEC)Indicatio ns:Hx of gastric ulcer TAKE 1 CAPSULE BY MOUTH 1 HOUR BEFORE THE FIRST MEAL OF THE DAY 90 Capsule 3 2 06/02/20 22 Discontinued Metoprolol Tartrate 25 MG Oral Tablet (Lopressor)Indicati ons:HTN, goal below 130/80,Tachy-bryn syndrome (HCC) TAKE 1 TABLET BY MOUTH TWICE DAILY 180 Tablet 3 2 09/03/19 23 Discontinued Tradjenta 5 MG Oral Tablet (linaGLIPtin)Indica tions:Type 2 diabetes mellitus with stage 3b chronic kidney disease, with long-term current use of insulin (HCC) TAKE 1 TABLET BY MOUTH ONCE DAILY 90 Tablet 1 2 03/19/20 22 Discontinued hydroCHLOROthiazide 25 MG Oral Tablet (Hydrodiuril) TAKE 1/2 TABLET BY MOUTH EVERY DAY 45 Tablet 1 2 03/19/20 22 Discontinued documented as of this encounter (statuses as of 01/06/2023) Active Problems Problem Noted Date Chronic kidney disease, stage 3b 021 Overview: [...] as of this encounter (statuses as of 01/06/2023) Resolved Problems Problem Noted Date Resolved Date [...] as of this encounter (statuses as of 01/06/2023) Immunizations Name Administration Dates Next Due COVID-19 mRNA, LNP-s, No Pre serve, 2-Dose Series (StatSocial) 10/01/2021,05/05/2021,09/10/2020,08/03 Pneumococcal Conjugate Vacc, 13 Valent (Prevnar) 06/24/2015 Pneumococcal Polysaccharide PPV23 (Pneumovax) 04/29/2013 Seasonal Influenza, Cell Cul ture, 18 Yrs & Older 06/14/2013 Seasonal Influenza, Quadriva lent Hd (Fluzone Hd) 03/18/2021 Seasonal Influenza, Quadriva lent, No Preserve, 6 Mons & Above, IM 05/03/2019,04/18/2018,07/14/2017 05/03/2020 Seasonal Influenza, Quadriva lent, No Preserve, Adjuvanted, 65+ Yrs, IM 04/09/2020 Seasonal Influenza, Quadriva lent, No Preserve, IM 05/09/2016,03/17/2015 05/09/2017 Seasonal Influenza, Split, I IV3, With Preserve, Inj 02/26/2014 Varicella Zoster Vaccine (Adult) 05/09/2014 Zoster Vaccine Recombinant (Shingrix) 07/19/2018 ,01/31/2018 documented as of this encounter Social History Tobacco Use Types Packs/Day Years Used Date Smoking Tobacco: Never Smokeless Tobacco: Never Alcohol Use Standard [...] Sign Reading Time Taken Comments Blood Pressure 154/78 10/13/2021 10:07 AM EDT Pulse 74 10/13/2021 10:07 AM EDT Temperature 36.8 C (98.3 F) 10/13/2021 10:07 AM E DT Respiratory Rate 18 10/13/2021 10:07 AM EDT Oxygen Saturation 96% 10/13/2021 10:07 AM EDT Inhaled Oxygen Concentration - - Weight 88.5 kg (195 lb 1.6 oz) 10/13/2021 10:07 AM EDT Height 157.5 cm (5' 2") 10/13/2021 10:07 AM EDT Body Mass Index 35.68 10/13/2021 10:07 AM EDT documented in this encounter Patient Instructions * Patient Instructions* Susan Dunaway LPN - 10/13/2021 10:07 AM EDT Patient Instructions - Fall Prevention (This education is for all patients over 65 regardless of symptoms) Remember to take your current medications as prescribed. In order to prevent falls, you are encouraged to: Exercise Utilize assistive/adaptive devices Avoid multifocal lenses when walking Avoid hazards in home Maintain a regular toileting schedule Any questions please contact our office. Preventing Falls in the Home (This education is for all patients over 65 regardless of symptoms) As you get older, falls are more likely. Thats because your reaction time slows. Your muscles and joints may also get stiffer, making them less flexible. Illness, medications, and vision changes can also affect your balance. A fall could leave you unable to live on your own. To make your home safer, follow these tips: Floors Put nonskid pads under area rugs Remove throw rugs Replace worn floor coverings Tack carpets firmly to each step on carpeted stairs. Put nonskid strips on the edges of uncarpeted stairs Keep floors and stairs free of clutter and cords Arrange furniture so there are clear pathways Clean up any spills right away Bathrooms Install grab bars in the tub or shower Apply nonskid strips or put a nonskid rubber mat in the tub or shower Sit on a bath chair to bathe Use bathmats with nonskid backing Lighting Keep a flashlight in each room Put a nightlight along the pathway between the bedroom and the bathroom [employer] Patient Education Copyright 2008 - 2010 [facility] except where otherwise noted Preventing Falls: Exercises to Improve Balance, Flexibility, Strength, and Staying Power (This education is for all patients over 65 regardless of symptoms) Certain types of exercises may help make you less likely to fall. Try the ones below. Or do other exercises that your healthcare provider suggests. Depending on your health, you may need to start slowly. Dont let that stop you. Even small amounts of exercise can help you. Be sure to talk to yourhealthcare provider before starting any exercise program. Improve Balance Many types of exercise can help improve balance. Willy chi and yoga are good examples. Heres another one to try. You can do it anytime and almost anywhere. Stand next to a counter or solid support. Push yourself up onto your tiptoes. Hold for 5 seconds. If you start to lose your balance, hold on to the counter. Rest and repeat 5 times. Work up to holding for 20 to 30 seconds, if you can. Increase Flexibility Being more flexible makes it easier for you to move around safely. Try exercises like the seated hamstring stretch. Sit in a chair and put one foot on a stool. Straighten your leg and reach with both hands down either side of your leg. Reach as far down your leg as you can. Hold for about 20 seconds. Go back to the starting position. Then repeat 5 times. Switch legs. Build Strength Resistance exercises help build strength. You can do them without equipment. Or you can use weights, elastic bands, or special machines. One such exercise is called the biceps curl. You can hold a 1 pound weight or even a can of soup. Do this exercise at least 3 times a week. Strive for everyday. Sit up straight in a chair. Keep your elbow close to your body and your wrist straight. Bend your arm, moving your hand up to your shoulder. Then slowly lower your arm. Repeat 5 times. Switch to the other arm. Build Your Staying Power Aerobic exercises make your heart and lungs stronger so you can keep moving longer. Walking and swimming are two of the best types of exercises you can do. Using a stationary bike is great, too. Find an aerobic exercise that you enjoy. Start slowly and build up. Even 5 minutes is helpful. Aimfor a goal of 30 minutes, at least 3 times a week. You dont have to do 30 minutes in one session. Break it up and walk a little throughout the day. More Helpful Tips Start easy. Slowly work up to doing more. Talk with your healthcare provider about the best exercises for you. Call senior centers or health clubs about exercise programs. If needed, have a family member watch you walk every so often to check your stability. Exercise with a friend. Choose an activity you both enjoy. Try exercises that you can do anytime, anywhere. Here are two examples. Have someone with you when you first try these: Practice walking by placing one foot right in front of the other. Stand up and sit down 10 times. Repeat this throughout the day. [employer] Patient Education Copyright 2008 - 2010 [employer] except where otherwise noted. Preventing Falls: Moving Safely Using a Cane or Walker (This education is for all patients over 65 regardless of symptoms) Keep the cane away from your feet so you dont trip. A walking aid, such as a cane or walker, can help you stay more independent and avoid falls. Remember to keep your walking aid within easy reach when youre in a chair or in bed. And learn how to use it safely so you dont injure yourself. Using a Cane If you have a stronger side, hold the cane on that side. 17. Get your balance. 18. Move the cane and your weaker leg forward. 19. Support your weight on both the cane and your weaker side. 20. Step with your stronger leg. 21. Start again from step 1. If youre using a folding walker, be sure you know how to lock it open. Check that its locked open before each use. Using a Walker 7. Roll the walker (or lift it, if youre using one without wheels) forward about 12 inches. 8. Step forward with your weaker leg first. 9. Use the walker to help keep your balance. 10. Bring your other foot forward to the center of the walker. 11. Start again from step 1. Helpful Tips Check with your healthcare provider about the right walking aid to use. Ask about a walker with a seat attached. Check the tips of your cane or walker to make sure they have nonskid covers. Move slowly from room to room. Dont rios. Sit down to get dressed. Use a livia pack or backpack to keep your hands free. Get help for jobs that mean climbing, even on a stepstool. [employer] Patient Education Copyright 2008 - 2010 [employer] except where otherwise noted. Urinary Incontinence Plan of Care Documentation: (This education is for all patients over 65 regardless of symptoms) Current medications reconciled. Patient encouraged to: Practice kegal exercises Provide education materials Use the restroom every 2 hours throughout the day Limit caffeine, alcohol, spicy foods and acidic foods Keep a bladder diary Limit fluid intake 3-4 hours before bed Lose weight Prevent constipation Take fluid pills at a time when you can get to the bathroom quickly Control sugar better if diabetic Limit fluid intake to 60 oz. per day Wear support stockings (TEDs)if you have edema Susan Dunaway LPN 10/13/2021 Kegel Exercises Kegel exercises dont require special clothing or equipment. Theyre easy to learn and simple to do. And if you do them right, no one can tell youre doing them, so they can be done almost anywhere. Your doctor, nurse, or physical therapist can answer any questions you have and help you get started. A Weak Pelvic Floor The pelvic floor muscles may weaken due to aging, and vaginal childbirth, injury, surgery, chronic cough, or lack of exercise. If the pelvic floor is weak, your bladder and other pelvic organs may sag out of place. The urethra may also open too easily and allow urine to leak out. Kegel exercises can help you strengthen your pelvic floor muscles so they can better support the pelvic organs and control urine flow. How Kegel Exercises Are Done Try each of the Kegel exercises described below. When youre doing them, try not to move your leg, buttock, or stomach muscles. While youre urinating, try to stop the flow of urine. Start and stop it as often as you can. Contract as if you were stopping your urine stream, but do it when youre not urinating. Tighten your rectum as if trying not to pass gas. Contract your anus, but dont move your buttocks. Helpful Hints Do your Kegels as often as you can. The more you do them, the faster youll feel the results. Pick an activity you do often as a reminder. For instance, do your Kegels every time you sit down. Tighten your pelvic floor before you sneeze, get up from a chair, cough, laugh, or lift. This protects your pelvic floor from injury and can help prevent urine leakage. Try to hold each Kegel for a slow count to five. You probably wont be able to hold them for thatlong at first, but keep practicing. It will get easier as your pelvic floor gets stronger. Eventually, special weights that you place in your vagina may be recommended to help make your Kegels even more effective. [employer] Patient Education Copyright 2009 - 2010 [facility] except where otherwise noted. Here are some helpful tips for your urinary incontinence: (This education is for all patients over 65 regardless of symptoms) Practice Kegel exercises Use the restroom every 2 hours throughout the day Limit caffeine, alcohol, spicy foods, and acidic foods Keep a bladder diary Limit fluid intake 3-4 hours before bed Lose weight Prevent constipation Take fluid pills at a time when can get to the bathroom quickly Control sugar better if diabetic Limit fluid intake to 60 oz. per day Any questions, please feel free to contact our office. documented in this encounter Progress Notes * Chelsey Mitchell, - 10/13/2021 10:53 AM EDT Subjective: Magdalena Payan is a 85 year old female. Chief Complaint Patient presents with Re-Check 6 onth HPI: 85 year old female with history of Hypertension, Hypothyroidism, mild aortic stenosis, type 2 diabetes, iron deficiency anemia, May of 2017 had anemia, and scopes showed Duodenal Neuroendocrine tumor, Jun had lymph node biopsy that showed on CT scan, and this showed malignant Metastatic Neuroendocrine Tumor, and she has been following with oncology and remains on Sandostatin LAR20 mg per month. Carries hx of tachy rbyn syndrome and s/p pacemaker. She will getting a hip replacement in November. This is with Dr Villagomez. She recently had nuclear stresstest in prep for pre op and this was negative for ischemia. Her daughter moved in with her, and helps take care of things, and there is still stress with family She did have COVID about 1.5 years ago. She did get her 2nd booster. 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 E11.9 1 Box Dosing Unit 11 Lisinopril 40 MG Oral Tablet TAKE ONE TABLET BY MOUTH DAILY 90 Tab 3 Vitamin D (Cholecalciferol) 10 MCG (400 UNIT) Oral Tablet Chewable Take 400 Units by mouth daily. Vitamin C 100 MG Oral Tablet Chewable Take 100 mg by mouth daily. Adult Gummy Oral Tablet Chewable Take 2 Each by mouth daily. Acetaminophen 500 MG Oral Tablet (Tylenol) Take 500 mg by mouth every 6 hours as needed. Atorvastatin Calcium 20 MG Oral Tablet (Lipitor) TAKE 1 TABLET BY MOUTH ONCE DAILY 90 Tab 3 Levothyroxine Sodium 100 MCG Oral Tablet (Levoxyl) take one tablet by mouth daily at least 30 minutes before breakfast and other medications 90 Tab 2 OneTouch Verio In Vitro Strip (Glucose Blood) use a s directed to test blood sugar once a day 100 Strip 3 Omeprazole 40 MG Oral Capsule Delayed Release (PriLOSEC) TAKE 1 CAPSULE BY MOUTH 1 HOUR BEFORE THE FIRST MEAL OF THE DAY 90 Capsule 3 Metoprolol Tartrate 25 MG Oral Tablet (Lopressor) TAKE 1 TABLET BY MOUTH TWICE DAILY 180 Tablet3 Tradjenta 5 MG Oral Tablet (linaGLIPtin) TAKE 1 TABLET BY MOUTH ONCE DAILY 90 Tablet 1 hydroCHLOROthiazide 25 MG Oral Tablet (Hydrodiuril) TAKE 1/2 TABLET BY MOUTH EVERY DAY 45 Tablet 1 Diclofenac Sodium (VOLTAREN) 1 % gel Place 2 g topically on the skin 2 times a day. To affectedarea as directed. 100 g 5 Meclizine HCl 12.5 MG Oral Tablet (Antivert) TAKE ONE TABLET BY MOUTH THREE TIMES DAILY if needed for dizziness 30 Tablet 1 No current facility-administered medications for this visit. Review of patient's allergies indicates: Allergen Reactions Bee Venom Abdominal pain and Edema face/lips/tongue Sulfa Antibiotics Rash Objective: BP 154/78 | Pulse 74 | Temp 36.8 C (98.3 F) (Tympanic) | Resp 18 | Ht 1.575 m (5' 2") | Wt 88.5kg (195 lb 1.6 oz) | SpO2 96% | BMI 35.68 kg/m | BSA 1.97 m Physical Exam: General: alert, healthy and no distress Heart: regular rate & rhythm, no murmurs and no gallops Lungs: chest symmetric with normal AP diameter, no chest deformities noted, no chest wall tenderness, lungs clear to auscultation Abdomen: abdomen soft, non-tender, normal bowel sounds and no masses or organomegaly Extremities: no edema ASSESSMENT/PLAN: Type 2 diabetes mellitus with stage 3b chronic kidney disease, with long-term current use of insulin (HCC) (Primary) - HEMOGLOBIN A1C; Future; Expected date: 10/13/2021 Risk and functional assessment HTN, goal below 130/80 Other specified hypothyroidism - TSH WITH FREE T4 IF INDICATED; Future; Expected date: 10/13/2021 Aortic valve sclerosis Dyslipidemia, goal LDL below 100 Generalized osteoarthritis Hypertensive kidney disease with stage 3b chronic kidney disease Iron deficiency anemia, unspecified iron deficiency anemia type Screening for osteoporosis - DEXA SCAN/BONE MINERAL AXIAL Follow Up: Return in about 6 months (around 04/15/2022) for Labs Today. | For: Labs Today | Check-out note: Dexa. Chelsey Mitchell DO documented in this encounter Nursing Notes * Susan Dunaway LPN - 10/13/2021 10:02 AM EDT The patient has been properly identified by confirmation of name and date of . Chief Complaint Patient presents with Re-Check 6 onth documented in this encounter Miscellaneous Notes * Result Encounter Note - Chelsey Mitchell DO - 01/06/2023 10:27 AM EDT Recent dexa was normal documented in this encounter Plan of Treatment Upcoming Encounters Date Type Specialty Care Team Description 01/18/2023 Appointment Radiology 01/25/2023 [facility] Visit [facility] [address] [facility] [address] 01/25/2023 Immunization/Injection Hematology Oncolog y Nurse, Med [address] [place] [address] 02/07/2023 Office Visit Hematology Oncology Rubin Rendon MD [address] [place] [address] 02/16/2023 Office Visit Family Medicine Chelsey Mitchell DO [address] [place] [address] 04/28/2023 Office Visit Cardiology Rosa Tyler PA-C [address] [facility] [place] [address] 07/13/2023 Cardiac Studies Cardiology Flex [facility] [address] [place] [address] 10/23/2023 Nurse Only [facility] Nurse Annual [facility] [address] [place] [address] Scheduled Procedures Name Priority Associated Diagnoses Date/Ti [...] 10/18/2023 10/17/2022, 04/05 CKD PHOS USE SMARTSET 99823 10/18/202310/03, 04/12/2021, 02/28/2020, Additional history exists DIABETES-FOOT EXAM 10/18/2023 10/17/2022, 0 10/07/2020, 08/12/2019, Additional history exists Depression Screening, Annual for Pts 12 and Over 10/18/2023 10/17/2022 TSH 10/18/2023 10/17/2022, 10/03, 11/26/2020, Additional history exists CKD HGB USE SMARTSET 95333 12/09/202312/08, 12/08/2022, 08/15/2022, Additional history exists DXA [...] this encounter Medical Devices Implanted Type Area Laborer Prestressed Concrete Device Identifier Shelf Expiration Date Model / Serial / Lot Lens 21.0 Mx60 - [id number] Implanted:Qty: 1 on 03/23/2016 by Jax Theodore MD at OR [facility] [employer] : SURGICAL 10/02/2018 MX60-21.0 / [id number] / [id number] Lens 21.5 Mx60 - [id number] - [id number] Implanted:Qty: 1 on 04/20/2016 by Jax Theodore MD at [facility] Right: Eye [employer] : SURGICAL 09/02/2018 MX60-21.5 / [id number] / [id number] documented as of this encounter Procedures Procedure Name Priority Date/Time Associated Diagnosis Comments DEXA SCAN/BONE MINERAL AXIAL Routine 11/22/2022 11:28 AM EDT Screening for osteoporosis documented in this encounter Results * DEXA SCAN/BONE MINERAL AXIAL (11/22/2022 11:28 AM EDT) Anatomical Region Laterality Modality Dexa, Vertebra, Spine, Hip, Pelvis Nuclear Medicine Impressions 11/22/2022 12:12 PM EDT S: Fracture risk is based on current National Osteoporosis Foundation (www.nof.org) Clinicians Guide and [place] Association of Clinical Endocrinology (AACE) Guidelines (www.aace.com) and the application of current WHO FRAX tool (https://www.ashlee.ac.uk/FRAX/) as well as the 2017 [place] [employer] Glucocorticoid Induced Osteoporosis (GIOP) Guidelines (rheumatology.org/Practice-Quality/Clinical-Support/Ibkwugpi-Veoarjtv-Cntjt lines) using Bone mineral density derived T-scores and clinical risk factors obtained from the patient questionnaire. 1. The fracture risk is LOW/MODERATE (does not meet NOF criteria for treatment) 2. The quality of the examination is GOOD. The values at the lumbar spine are falsely elevated, and therefore the values at the hip/femoral neck are a better reflection of fracture risk in this patient. 3. No previous study for comparison. SUGGESTIONS: Information concerning the evaluation and treatment of osteoporosis can be found at the National Osteoporosis Foundation website (www.nof.org) and [place] [employer]ocrinology (AACE-www.aace.com). Osteoporosis prevention and treatment begins by modifying risk factors (such as smoking cessation and avoiding alcohol excess) and by participating in weight-bearing activities and exercise. Issues related to fall prevention and home safety should be addressed. Current NOF guidelines suggest 1200 to 1500 mg of calcium from diet and or supplemental sources. It is generally felt best to get calcium from one s diet. Calcium carbonate and calcium citrate are common calcium supplement choices in most local pharmacies. If the patient is taking a proton pump inhibitor, then calcium citrate should be the preferred supplement, if that is necessary. NOF guidelines for vitamin D are 800 to 1000 units of vitamin D3 daily. However, this may best be guided by measurement of 25-OH vitamin-D level, aiming for a level between 30 to 50 units (ng/ml). Additional information can be found at the FRAX website (https://www.ashlee.ac.uk/FRAX/), and the [place] [employer] website (https://www.rheumatology.org/Practice-Quality/Clinical-Support/Clinical-Pr actice-Guidelines). 1. No specific prescription therapy is needed at this point in time. 2. A repeat study should be considered in 2 years GARRISON MITCHELL M.D. ISCD Certified Clinical Qi Specialist Department of Rheumatology [facility] Narrative 11/22/2022 12:12 PM EDT Radiology, [facility] [place] DXA Performed: 11/22/22 DXA Resulted: 11/22/2022 Magdalena Suleigha Reason for testing: estrogen deficient woman at clinical risk Osteoporosis treatment (per questionnaire): A. Previous treatment: NONE B. Current treatment: NONE Major risk factors: none Using a [employer] [place] images of the lumbar spine, left hip, right forearm were obtained using DXA.. The bone mineral density and T scores [standard, young, normal, female population] are as follows: RESULTS: Lumbar spine: INVALID Left femoral neck: 0.702 gms/cm2 T-score: -1.3 Right forearm: 0.567 gms/cm2 T-score: -2.1 Using the NOF/WHO FRAX calculator, the 10 year absolute risk for any major osteoporotic fracture is 12 % and the risk for hip fracture is 2.8 %. Chelsey Mitchell DO RADIOLOGY (RAD GENER AL) * TSH WITH FREE T4 IF INDICATED (10/13/2021 11:39 AM EDT) [facility] TSH 0.80 0.27 - 4.20 uIU/mL 10/13/2021 10:33 PM EDT LABORATORY [facility] Blood Venous blood specimen / Unknown Venipuncture / Unknown 10/13/2021 11:39 AM EDT 10/13/2021 11:40 AM EDT Chelsey Mitchell LAB BLOOD ORDERABLES Performing Organization Address [facility] de Phone Number LABORATORY [facility] [address] [place] [address] * (ABNORMAL) HEMOGLOBIN A1C (10/13/2021 11:39 AM EDT) Hemoglobin A1C 7.3(H) 4.0 - 5.6 % 10/13/2021 10:29 PM EDT LABORATORY [facility] Comment:The use of HbA1c to monitor glycemic status is based on normal hemoglobin and HbA composition. This test should not be used in patients with abnormal hemoglobin that affects the half life of the red blood cell or the in vivo glycation rates. Estimated Average Glucose 163(H) <126 mg/dL 10/13/2021 10:29 PM EDT LABORATORY [facility] Blood Venous blood specimen / Unknown Venipuncture / Unknown 10/13/2021 11:39 AM EDT 10/13/2021 11:40 AM EDT Chelsey Mitchell LAB BLOOD ORDERABLES Performing Organization Address [facility] de Phone Number LABORATORY [address] [address] documented in this encounter Visit Diagnoses Diagnosis Type 2 diabetes mellitus with stage 3b chronic kidney disease, with long-term current use of insulin ([facility])- Primary Risk and functional assessment Screening for unspecified condition HTN, goal below 130/80 Unspecified essential hypertension Other specified hypothyroidism Aortic valve sclerosis Aortic valve disorders Dyslipidemia, goal LDL below 100 Other and unspecified hyperlipidemia Generalized osteoarthritis Generalized osteoarthrosis, unspecified site Hypertensive kidney disease with stage 3b chronic kidney disease Iron deficiency anemia, unspecified iron deficiency anemia type Screening for osteoporosis Special screening for osteoporosis documented in this encounter Advance Directives Latest [...] and were consensually agreed upon. Care Teams Lock Operator Relationship Specialty Start Date End Date Chelsey Mitchell, [address] [place] [address] PCP - General Family Medicine 07/10/18 documented as of this encounter
--- OUTSIDE RECORDS SUMMARY | 2023-06-11 13:26 | External Medical Summary | Summary of Care ---
Author Name Unknown Organization [facility] Address [address] [place] [address] Phone [phone] Care Team Providers Care Electronic Industrial Controls Mechanic Name Role Phone Tania Mitchell DO Primary Care Provider + [phone] Reason for Visit * Reason Onset Date Comments Medication Refill 12/30/2022 Encounter Details Date Type Department Care Team Description 12/30/2022 Refill [place] [address] [place] [address] Tania Mitchell DO [address] [place] [address] Osteoarthritis of multiple joints, unspecified osteoarthritis type; Generalized OA Allergies Active Allergy Reactions Severity Noted Date Comments Bee Venom Abdominal pain,Edema face/lips/tongue High 02/17/2011 Sulfa Antibiotics Rash Medium 12/26/2007 documented as of this encounter (statuses as of 01/02/2023) Medications Medication Sig Dispensed Refills Start Date [...] the day 90 Capsule 1 11/30/2022 Active HYDROcodone-Acetami nophen 5-325 MG Oral TabletIndications:O steoarthritis of multiple joints, unspecified osteoarthritis type,Generalized OA Take 1 Tablet by mouth every 6 hours as needed for Pain, Mild. 30 Tablet 0 01/02/2023 Active HYDROcodone-Acetami nophen 5-325 MG Oral TabletIndications:O steoarthritis of multiple joints, unspecified osteoarthritis type,Generalized OA Take 1 Tablet by mouth every 6 hours as needed for Pain, Mild. 30 Tablet 0 12/14/2022 12/31/19 23 Discontinu ed(Refill) documented as of this encounter (statuses as of 01/02/2023) Active Problems Problem Noted Date Diabetic peripheral [...] as of this encounter (statuses as of 01/02/2023) Resolved Problems Problem Noted Date Resolved Date [...] as of this encounter (statuses as of 01/02/2023) Immunizations Name Administration Dates Next Due COVID-19 mRNA, LNP-s, No Pre serve, 2-Dose Series ([employer]) 10/01/2021,05/05/2021,09/10/2020,08/03 Covid-19, Mrna, Lnp-s, Pf, B ivalent, 30 Mcg, IM, 12 yrs and above (Pfizer) 05/10/2022 Pneumococcal Conjugate Vacc, 13 Valent (Prevnar) 06/24/2015 Pneumococcal Polysaccharide PPV23 (Pneumovax) 04/29/2013 Seasonal Influenza, Cell Cul ture, 18 Yrs & Older 06/14/2013 Seasonal Influenza, Quadriva lent Hd (Fluzone Hd) 04/15/2022,03/18/2021 Seasonal Influenza, Quadriva lent, No Preserve, 6 [...] Telephone Encounter - Tania Mitchell DO - 01/02/2023 12:25 PM EDTSigned Prescriptions: Disp Refills HYDROcodone-Acetaminophen 5-325 MG Oral Ta*30 Tab*0 Sig: Take 1 Tablet by mouth every 6 hours as needed for Pain, Mild. Authorizing Provider: TANIA MITCHELL * Telephone Encounter - Trinity Shetty [facility] - 12/31/2022 9:30 AM EDTPending Prescriptions: Disp Refills HYDROcodone-Acetaminophen 5-325 MG Oral Ta*30 Tab*0 Sig: Take 1 Tablet by mouth every 6 hours as needed for Pain, Mild. * Telephone Encounter - Trinity Shetty [facility] - 12/31/2022 9:30 AM EDT I have reviewed the patients controlled substance dispensing history in the Prescription Drug Monitoring Program in compliance with the [facility] regulations before prescribing a controlled substance. PDMP checked on 12/31/2022. Pending Prescriptions: Disp Refills HYDROcodone-Acetaminophen 5-325 MG Oral T*30 Tab*0 Sig: Take 1 Tablet by mouth every 6 hours as needed for Pain, Mild. Last Visit: 12/08/2022 (in office), Visit date not found (telemedicine) Next Visit: 02/16/2023 Date medication was last filled: 12/14/22 Date medication is due for refill: 12/20/22 [facility]acy: [id number] [facility] Is this request for a controlled [...] pH ANDRE 4.9 Please approve if appropriate. Thanks, Trinity Shetty, Víctor Clinical Pharmacist [facility] ([facility] - Former[facility]pharm[facility]) [phone] 12/31/2022 9:30 AM * Telephone Encounter - JEREMIAH Bernal Tech - 12/30/2022 10:07 AM EDT Did you pend patient's preferred pharmacy and medication before forwarding?yes Pharmacy: [id number] Pending Prescriptions: Disp Refills HYDROcodone-Acetaminophen 5-325 MG Oral T*30 Tab*0 Sig: Take 1 Tablet by mouth every 6 hours as needed for Pain, Mild. Last Visit: Visit date not found (in office), Visit date not found (telemedicine) Next Visit: Visit date not found If no future appointments scheduled, and last appointment is greater than a year ago, please schedule patient for a follow-up appointment Last date the medication was ordered: 12/14/2022 Is this request for a controlled substance?Yes, What was the last refill date 12/14/2022 w/ quantity 30 and dosage 5-325 mgand Urine Drug Screen was completed Urine Drug [...] Results Component Value Date/Time CREAT 1.5 (H) 12/08/2022 09:49 AM CREAT 1.5 (H) 04/09/2020 11:08 AM POTASSIUM 4.5 12/08/2022 09:49 AM POTASSIUM 4.9 04/09/2020 11:08 AM TSH [...] Visit Cardiology Payam Amor MD [address] [place] [address] 01/25/2023 Immunization/Injection Hematology Oncolog y Nurse, Med 4 [address] [place] [address] 02/07/2023 Office Visit Hematology Oncology Rubin Rendon MD [address] [place] [address] 02/16/2023 Office Visit Family Medicine Tania Mitchell DO [address] [place] [address] 04/28/2023 Office Visit Cardiology Rosa Tyler PA-C [address] [place] [address] 07/13/2023 Cardiac Studies Cardiology Flex Field [facility] [address] [place] [address] 10/23/2023 Nurse Only Ancillary Nurse [facility] [address] [place] [address] Scheduled Procedures Name Priority Associated Diagnoses Date/Ti [...] 10/18/2023 10/17/2022, 04/05 CKD PHOS USE SMARTSET 62326 10/18/202310/03, 04/12/2021, 02/28/2020, Additional history exists DIABETES-FOOT EXAM 10/18/2023 10/17/2022, 0 10/07/2020, 08/12/2019, Additional history exists Depression Screening, Annual for Pts 12 and Over 10/18/2023 10/17/2022 TSH 10/18/2023 10/17/2022, 10/03, 11/26/2020, Additional history exists CKD HGB USE SMARTSET 95757 12/09/202312/08, 12/08/2022, 08/15/2022, Additional history exists DXA [...] this encounter Medical Devices Implanted Type Area Unemployment Inspector Device Identifier Shelf Expiration Date Model / Serial / Lot Lens 21.0 Mx60 - [id number] Implanted:Qty: 1 on 03/23/2016 by Jax Theodore MD at OR [facility] [employer] : SURGICAL 10/02/2018 MX60-21.0 / [id number] / [id number] Lens 21.5 Mx60 - [id number] - [id number] Implanted:Qty: 1 on 04/20/2016 by Jax Theodore MD at OR [facility] Right: Eye [employer] : SURGICAL 09/02/2018 MX60-21.5 / [id number] / [id number] documented as of this encounter Visit Diagnoses Diagnosis Osteoarthritis of multiple joints, unspecified osteoarthritis type Generalized OA Generalized osteoarthrosis, unspecified site documented in this encounter Advance Directives [...] and were consensually agreed upon. Care Teams Electronic Industrial Controls Mechanic Relationship Specialty Start Date End Date Tania Mitchell, [address] [place], [place] [id number] PCP - General Family Medicine 07/10/18 documented as of this encounter
--- OUTSIDE RECORDS SUMMARY | 2023-06-11 13:26 | External Medical Summary | Summary of Care ---
Author Name Unknown Organization [facility] Address [address] [place] [address] Phone [phone] Care Team Providers Care Commissioner Of Relocation Services Name Role Phone Chelsey Mitchell DO Primary Care Provider [phone] Encounter Details Date Type Department Care Team Description 12/27/2022 [facility]phone [facility] [address] [facility] [place] [address] Tyron Barth PA-C [address] [place] [address] Allergies Active Allergy Reactions Severity Noted Date Comments Bee Venom Abdominal pain,Edema face/lips/tongue High 02/17/2011 Sulfa Antibiotics Rash Medium 12/26/2007 documented as of this encounter (statuses as of 12/27/2022) Medications Medication Sig Dispensed Refills Start Date [...] for Pain, Mild. 30 Tablet 0 12/14/2022 Active Cefdinir 300 MG Oral Capsule (Omnicef)Indications :Dysuria Take 1 Capsule by mouth in the morning and 1 Capsule before bedtime. Do all this for 7 days. For 10 days.. 14 Capsule 0 12/25/2022 07/30/202 3 Active documented as of this encounter (statuses as of 12/27/2022) Active Problems Problem Noted Date Diabetic peripheral [...] as of this encounter (statuses as of 12/27/2022) Resolved Problems Problem Noted Date Resolved Date [...] as of this encounter (statuses as of 12/27/2022) Immunizations Name Administration Dates Next Due COVID-19 mRNA, LNP-s, No Pre serve, 2-Dose Series ([employer]) 10/01/2021,05/05/2021,09/10/2020,08/03 Covid-19, Mrna, Lnp-s, Pf, B ivalent, 30 Mcg, IM, 12 yrs and above ([employer]) 05/10/2022 Pneumococcal Conjugate Vacc, 13 Valent [...] encounter Miscellaneous Notes * Telephone Encounter - Tyron Barth PA-C - 12/27/2022 1:41 PM EDT Please advise the patient that the bacteria in urine is sensitive to antibiotic prescribed (Cefdinir). Recommend finishing full course of antibiotics. With no improvement or any persistent symptoms follow-up with primary care provider. Thank you! Tyron Batrh PA-C documented in this encounter Plan of Treatment Upcoming Encounters Date Type Specialty Care Team Description 12/28/2022 Immunization/Injection Hematology Oncolog y Nurse, Med 4 [address] [place] [address] 01/18/2023 Appointment Radiology 01/25/2023 Office Visit Cardiology Payam Amor MD [address] [place] [address] 01/25/2023 Immunization/Injection Hematology Oncolog y Nurse, Med 4 [address] [place] [address] 02/07/2023 Office Visit Hematology Oncology Rubin Rendon MD [address] [place] [address] 02/16/2023 Office Visit Family Medicine Chelsey Mitchell DO [address] [place] [address] 04/28/2023 Office Visit Cardiology Rosa Tyler PA-C [address] [facility] [place] [address] 07/13/2023 Cardiac Studies Cardiology Flex Field [facility] [address] [facility] [address] 10/23/2023 Nurse Only Ancillary [place] [address] [place] [address] Scheduled Procedures Name Priority Associated Diagnoses Date/Ti [...] 10/18/2023 10/17/2022, 04/05 CKD PHOS USE SMARTSET 21455 10/18/202310/03, 04/12/2021, 02/28/2020, Additional history exists DIABETES-FOOT EXAM 10/18/2023 10/17/2022, 0 10/07/2020, 08/12/2019, Additional history exists Depression Screening, Annual for Pts 12 and Over 10/18/2023 10/17/2022 TSH 10/18/2023 10/17/2022, 10/03, 11/26/2020, Additional history exists CKD HGB USE SMARTSET 42280 12/09/202312/08, 12/08/2022, 08/15/2022, Additional history exists DXA [...] this encounter Medical Devices Implanted Type Area Splitting Machine Feeder Device Identifier Shelf Expiration Date Model / Serial / Lot Lens 21.0 Mx60 - [id number] Implanted:Qty: 1 on 03/23/2016 by Jax Theodore MD at OR [facility] [employer] : SURGICAL 10/02/2018 MX60-21.0 / [id number] / [id number] Lens 21.5 Mx60 - [id number] - [id number] Implanted:Qty: 1 on 04/20/2016 by Jax Theodore MD at [facility] Right: Eye [employer] : SURGICAL 09/02/2018 MX60-21.5 / [id number] / [id number] documented as of this encounter Advance Directives [...] and were consensually agreed upon. Care Teams Commissioner Of Relocation Services Relationship Specialty Start Date End Date Chelsey Mitchell, [address] [place] [facility] [place] [address] PCP - General Family Medicine 07/10/18 documented as of this encounter
--- OUTSIDE RECORDS SUMMARY | 2023-06-11 13:26 | External Medical Summary | Summary of Care ---
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 Procedures TX OCTREOTIDE INJECTION, DEPOT Rubin Rendon MD [address] [place] [address] Anc Hem/Onc [facility] [address] [facility] [place] [address] Referral ID Status Reason Start Date Expiration Date V isits Requested Visits Authorized [id number] Authorized 07/22/2022 07/22/2023 99 99 Encounter Details Date Type Department Care Team Description 12/28/2022 Immunization/I njection Hematology/Oncology Treatment, [place] [address] [place] [address] Nurse, Med [address] [place] [address] Primary pancreatic neuroendocrine tumor*; Primary malignant neuroendocrine neoplasm of duodenum (HCC) Allergies Active Allergy Reactions Severity Noted Date Comments Bee Venom Abdominal pain,Edema face/lips/tongue High 02/17/2011 Sulfa Antibiotics Rash Medium 12/26/2007 documented as of this encounter (statuses as of 12/28/2022) Medications Medication Sig Dispensed Refills Start Date [...] For 10 days.. 14 Capsule 0 12/25/2022 3 Active documented as of this encounter (statuses as of 12/28/2022) Active Problems Problem Noted Date Diabetic peripheral [...] as of this encounter (statuses as of 12/28/2022) Resolved Problems Problem Noted Date Resolved Date [...] as of this encounter (statuses as of 12/28/2022) Immunizations Name Administration Dates Next Due COVID-19 mRNA, LNP-s, No Pre serve, 2-Dose Series ([employer]) 10/01/2021,05/05/2021,09/10/2020,08/03 Covid-19, Mrna, Lnp-s, Pf, B ivalent, [...] Nursing Notes * Kate Sweet LPN - 12/28/2022 11:36 AM EDT Room 4. Pt arrived for Sandostatin 20mg injection. Administered in R dorsogluteal. Pt tolerated well. To return in 4 weeks. Discharged in stable condition. documented in this encounter Plan of Treatment Upcoming Encounters Date Type Specialty Care Team Description 01/18/2023 Appointment Radiology 01/25/2023 Office Visit Cardiology Payam Amor MD [address] [place] [address] 01/25/2023 Immunization/Injection Hematology Oncolog y Nurse, Med 4 [address] [place] [address] 02/07/2023 Office Visit Hematology Oncology Rubin Rendon MD [address] [place] [address] 02/16/2023 Office Visit Family Medicine Chelsey Mitchell DO [address] [place] [address] 04/28/2023 Office Visit Cardiology Rosa Tyler PA-C [address] [place] [address] 07/13/2023 Cardiac Studies Cardiology Flex Field [facility] [address] [facility] [place] [address] 10/23/2023 Nurse Only Nurse [facility] [address] [place] [address] Scheduled Procedures Name Priority Associated Diagnoses Date/Ti [...] 10/18/2023 10/17/2022, 04/05 CKD PHOS USE SMARTSET 09179 10/18/202310/03, 04/12/2021, 02/28/2020, Additional history exists DIABETES-FOOT EXAM 10/18/2023 10/17/2022, 0 10/07/2020, 08/12/2019, Additional history exists Depression Screening, Annual for Pts 12 and Over 10/18/2023 10/17/2022 TSH 10/18/2023 10/17/2022, 10/03, 11/26/2020, Additional history exists CKD HGB USE SMARTSET 24247 12/09/202312/08, 12/08/2022, 08/15/2022, Additional history exists DXA [...] this encounter Medical Devices Implanted Type Area Precise Winder Device Identifier Shelf Expiration Date Model / Serial / Lot Lens 21.0 Mx60 - [id number] Implanted:Qty: 1 on 03/23/2016 by Jax Theodore MD at OR [facility] [employer] : SURGICAL 10/02/2018 MX60-21.0 / [id number] / [id number] Lens 21.5 Mx60 - [id number] - [id number] Implanted:Qty: 1 on 04/20/2016 by Jax Theodore MD at OR [facility] Right: Eye [employer] : SURGICAL 09/02/2018 MX60-21.5 / [id number] / [id number] documented as of this encounter Visit Diagnoses Diagnosis Primary pancreatic neuroendocrine tumor- Primary Malignant poorly differentiated neuroendocrine carcinoma, 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 Care Teams Typewriter Assembly And Parts Inspector Relationship Specialty Start Date End Date Chelsey Mitchell, DO [address] [place], [place] [id number] PCP - General Family Medicine 07/10/18 documented as of this encounter
--- OUTSIDE RECORDS SUMMARY | 2023-06-11 13:26 | External Medical Summary | Summary of Care ---
Author Name Unknown Organization [facility] Address [address] [place] [address] Phone [phone] Care Team Providers Care Bookkeeper Receptionist Name Role Phone Chelsey Micthell DO Primary Care Provider [phone] Reason for Visit * Reason Onset Date Comments Precert Denied 01/20/2023 Encounter Details Date Type Department Care Team Description 01/20/2023 Telephone Hematology/Oncology [facility] [address] [place] [address] Rubin Rendon MD [address] [place] [address] Precert Denied Allergies Active Allergy Reactions Severity Noted Date Comments Bee Venom Abdominal pain,Edema face/lips/tongue High 02/17/2011 Sulfa Antibiotics Rash Medium 12/26/2007 documented as of this encounter (statuses as of 01/20/2023) Medications Medication Sig Dispensed Refills Start Date [...] as of this encounter (statuses as of 01/20/2023) Active Problems Problem Noted Date Diabetic peripheral [...] as of this encounter (statuses as of 01/20/2023) Resolved Problems Problem Noted Date Resolved Date [...] as of this encounter (statuses as of 01/20/2023) Immunizations Name Administration Dates Next Due COVID-19 mRNA, LNP-s, No Pre serve, 2-Dose Series ([employer]) 10/01/2021,05/05/2021,09/10/2020,08/03 Covid-19, Mrna, Lnp-s, Pf, B ivalent, 30 Mcg, IM, 12 yrs and above ([employer]) 05/10/2022 Pneumococcal Conjugate Vacc, 13 Valent (Prevnar) [...] to appeal (we do not have a [facility] portal so will need the fax number on the denial. Thanks! * Telephone Encounter - DIAZ Serna - 01/20/2023 11:03 AM EDT The PET CT requested for Magdalena Payan [facility] been [facility]. Per [facility] denial reason: Your records do not show [...] removal of primary disease. After speaking with [facility] rep, P2P is not an option and an appeal would have to be completed. For Physician/Providers Use Only When Filing an Appeal: Portal Online Submission: Go to [email or web address] Thank you, DIAZ Serna 01/20/2023, 11:04 AM documented in this encounter Plan of Treatment Upcoming Encounters Date Type Specialty Care Team Description 01/25/2023 Office Visit Cardiology Payam Amor MD [address] [place] [address] 01/25/2023 Immunization/Injecti o n Hematology Oncology Nurse, Med 4 [address] [facility] [place], [place] [address] 02/07/2023 Office Visit Hematology Oncology Rubin Rendon MD [address] [facility], [place] [address] 02/16/2023 Office Visit Family Medicine Chelsey Mitchell DO [address] [place] [facility] [place] [place] [address] 04/28/2023 Office Visit Cardiology Rosa Tyler PA-C [address] [place] [address] 07/13/2023 Cardiac Studies Cardiology Flex Field [facility] [address] [place] [address] 10/23/2023 Nurse Only Ancillary Nurse [facility] [address] [place] [facility] [place] [address] Scheduled Procedures Name Priority Associated Diagnoses Date/Ti [...] 10/18/2023 10/17/2022, 04/05 CKD PHOS USE SMARTSET 86385 10/18/202310/03, 04/12/2021, 02/28/2020, Additional history exists DIABETES-FOOT EXAM 10/18/2023 10/17/2022, 0 10/07/2020, 08/12/2019, Additional history exists Depression Screening, Annual for Pts 12 and Over 10/18/2023 10/17/2022 TSH 10/18/2023 10/17/2022, 10/03, 11/26/2020, Additional history exists CKD HGB USE SMARTSET 17181 12/09/202312/08, 12/08/2022, 08/15/2022, Additional history exists DXA [...] this encounter Medical Devices Implanted Type Area Data Deliverables Manager Device Identifier Shelf Expiration Date Model / Serial / Lot Lens 21.0 Mx60 - [id number] Implanted:Qty: 1 on 03/23/2016 by Jax Theodore MD at OR [facility] [employer] : SURGICAL 10/02/2018 MX60-21.0 / [id number] / [id number] Lens 21.5 Mx60 - [id number] - [id number] Implanted:Qty: 1 on 04/20/2016 by Jax Theodore MD at OR [facility] Right: Eye [employer] : SURGICAL 09/02/2018 MX60-21.5 / [id number] / [id number] documented as of this encounter Advance Directives [...] and were consensually agreed upon. Care Teams Bookkeeper Receptionist Relationship Specialty Start Date End Date Chelsey Mitchell DO [address] [place] [facility] [place] [address] PCP - General Family Medicine 07/10/18 documented as of this encounter
--- OUTSIDE RECORDS SUMMARY | 2023-06-11 13:26 | External Medical Summary | Summary of Care ---
Author Name Unknown Organization [facility] Address [address] [place] [address] Phone [phone] Care Team Providers Care Battery Vent Plug Inserter Name Role Phone Chelsey Mitchell DO Primary Care Provider [phone] Reason for Visit * Reason Comments Fever Frequent Urination Dysuria Encounter Details Date Type Department Care Team Description 12/25/2022 [facility] [place] [address] [address] Yanna Arteaga PA-C [address] [address] Dysuria* Allergies Active Allergy Reactions Severity Noted Date Comments Bee Venom Abdominal pain,Edema face/lips/tongue High 02/17/2011 Sulfa Antibiotics Rash Medium 12/26/2007 documented as of this encounter (statuses as of 12/25/2022) Medications Medication Sig Dispensed Refills Start Date [...] as of this encounter (statuses as of 12/25/2022) Active Problems Problem Noted Date Diabetic peripheral [...] as of this encounter (statuses as of 12/25/2022) Resolved Problems Problem Noted Date Resolved Date [...] as of this encounter (statuses as of 12/25/2022) Immunizations Name Administration Dates Next Due COVID-19 mRNA, LNP-s, No Pre serve, 2-Dose Series ([employer]) 10/01/2021,05/05/2021,09/10/2020,08/03 Covid-19, Mrna, Lnp-s, Pf, B ivalent, 30 Mcg, IM, 12 yrs and above ([employer]) 05/10/2022 Pneumococcal Conjugate Vacc, 13 Valent (Prevnar) [...] Sign Reading Time Taken Comments Blood Pressure 110/64 12/25/2022 12:29 PM EDT Pulse 66 12/25/2022 12:29 PM EDT Temperature 38 C (100.4 F) 12/25/2022 12:29 PM ED T Respiratory Rate - - Oxygen Saturation 97% 12/25/2022 12:29 PM EDT Inhaled Oxygen Concentration - - Weight 85.1 kg (187 lb 9.6 oz) 12/25/2022 12:29 PM EDT Height 160 cm (5' 3") 12/25/2022 12:29 PM EDT Body Mass Index 33.23 12/25/2022 12:29 PM EDT documented in this encounter Patient Instructions * Patient Instructions* Yanna Arteaga PA-C - 12/25/2022 12:40 PM EDT Drink plenty of fluids, increase intake over next 48-72 hours. Take all medications as prescribed, even if you are feeling better sooner. We will notify you of your urine culture results. F/U with PCP with no improvement in 3-5 days. Go immediately to the ED with any change or worsening symptoms including chills, fevers, back pain. documented in this encounter Progress Notes * Yanna Arteaga PA-C - 12/25/2022 12:30 PM EDT CONVENIENT CARE PROGRESS NOTE Magdalena Payan is a 87 year old female who presents with urinary tract symptoms. Patient complains of dysuria, urinary frequency x 3 days Patient was accompanied by Self. Reports hx of UTIs in the past ( last UTI months ago). denies hx of kidney stones. denies blood in urine. + fever, chills, denies upper back pain. denies chance of . denies new sexual partners or concern for STD's. denies genital itching, discharge or bleeding. Constitutional: no fever, chills, sweats, or fatigue Nursing Notes: Vianey Aguilar LPN 12/25/22 1232 Signed Magdalena Payan is a 87 year old female who presents to walk-in clinic today complaining of Chief Complaint Patient presents with Fever Frequent Urination Dysuria Main Symptoms:fever, frequent urination, painful/burning with urination. Cause: n/a How lon days Tried: AZO about 2 days ago. Pt accompanied by: self ROS: All others negative other than those noted in HPI HISTORY: Past Medical History: Diagnosis Date Basal [...] CARDIAC CATH INJ. FOR CORONARY ANGIOGRAPHY 09/2012 [facility], no significant CAD COLONOSCOPY, DIAGNOSTIC (RECTUM) 02/08/2017 polyp removed not retrieved, diverticulosis/[facility] DILATION AND CURETTAGE (D&C) 1999 after postmenopausal bleeding. EGD, FLEXIBLE, DIAGNOSTIC 02/08/2017 mild-mod inflammation, Schatzki ring, repeat 2 mo/[facility] EGD, FLEXIBLE, DIAGNOSTIC 04/10/2017 mild-mod inflammation on bx, gastric ulcer, repeat 6-8 wks/[facility] EGD, FLEXIBLE, DIAGNOSTIC 05/23/2017 well differentiated neuroendocrine tumor / [facility] EGD, FLEXIBLE, DIAGNOSTIC 08/31/2017 gastritis, repeat 1 yr/[facility] EGD, W/ENDOSCOPIC US N/A 06/08/2017 ESOPHAGOGASTRODUODENOSCOPY (EGD), FLEXIBLE, TRANSORAL, ENDOSCOPIC ULTRASOUND performed by Chapincito Saha MD at ENDOSCOPY [facility] EGD, W/ENDOSCOPIC US N/A 06/22/2018 ESOPHAGOGASTRODUODENOSCOPY (EGD), FLEXIBLE, TRANSORAL, ENDOSCOPIC ULTRASOUND performed by Chapincito Saha MD at ENDOSCOPY [facility] EGD, W/ENDOSCOPIC US N/A 07/24/2018 ESOPHAGOGASTRODUODENOSCOPY (EGD), FLEXIBLE, TRANSORAL, ENDOSCOPIC ULTRASOUND performed by Chapincito Saha MD at ENDOSCOPY [facility] EGD, W/ENDOSCOPIC US N/A 08/06/2019 ESOPHAGOGASTRODUODENOSCOPY (EGD), FLEXIBLE, TRANSORAL, ENDOSCOPIC ULTRASOUND performed by Chapincito Saha MD at ENDOSCOPY [facility] LUMBAR DISC ARTHROPLAST,REMV,ADDL INTERSPCE 2010 Br Rhona, lumbar 3 levels she thinks MOHS IMAGE (BIOMED) [address] Nielsen[address] REMOVE CATARACT, INSERT LENS PROSTH Right 04/20/2016 EXTRACAPSULAR CATARACT REMOVAL WITH INTRAOCULAR LENS performed by Jax Theodore MD at OR [facility] Social History Socioeconomic History Marital status: Spouse name: Darrell Number of children: 4 Years of education: Not on file Highest education level: Not on file Occupational History Not on file Tobacco Use Smoking status: Never Passive exposure: Never Smokeless tobacco: Never Vaping Use Vaping Use: Never used Substance and Sexual Activity Alcohol use: No Drug use: No Sexual activity: Not Currently Partners: Female, Male Other Topics Concern Not on file Social History Narrative Lives with Jose, and her grandson Cl. Works outside [employer]. Social Determinants of Health Financial Resource Strain: Not on file Food Insecurity: No Food Insecurity Worried About Running Out of Food in the Last Year: Never true Ran Out of Food in the Last Year: Never true Transportation Needs: Not on file Physical Activity: Not on file Stress: Not on file Social Connections: Not on file Intimate Partner Violence: Not on file Housing Stability: Not on file Current Outpatient Medications Medication Sig Dispense Refill ASPIRIN 81 MG PO TABS one a day ONETOUCH ULTRASOFT LANCETS MISC Use one time a day in the morning. E11.9 1 Box Dosing Unit 11 Diclofenac Sodium (VOLTAREN) 1 % gel Place 2 g topically on the skin 2 times a day. To affectedarea as directed. 100 g 5 Vitamin D [...] if needed for dizziness 30 Tablet 1 OneTouch Verio In Vitro Strip (Glucose Blood) use as directed to test blood sugar once a day 100 Strip 3 Metoprolol Tartrate 25 MG Oral Tablet [...] needed for Pain, Mild. 30 Tablet 0 Cefdinir 300 MG Oral Capsule (Omnicef) Take 1 Capsule by mouth in the morning and 1 Capsule before bedtime. Do all this for 7 days. For 10 days.. 14 Capsule 0 No current facility-administered medications for this visit. Review of patient's allergies indicates: Allergen Reactions Bee Venom Abdominal pain and Edema face/lips/tongue Sulfa Antibiotics Rash Family History Problem Relation Age of Onset Heart Disorder Sister CAD Heart Disorder Sister CAD Heart Disorder Brother passed [place] OBJECTIVE: BP 110/64 | Pulse 66 | Temp 38 C (100.4 F) | Ht 1.6 m (5' 3") | Wt 85.1 kg (187 lb 9.6 oz) | SpO2 97% | BMI 33.23 kg/m | BSA 1.94 m Wt Readings from Last 1 Encounters: 12/25/22 85.1 kg (187 lb 9.6 oz) General appearance: awake, alert, no apparent distress Abdominal Exam: back: no CVA tenderness and abd: +suprapubic tenderness to palpation, no R/R/G, +BS Respiratory: clear to auscultation, no rhonchi, no wheezes, and no crackles Heart: regular rate, regular rhythm, no murmurs , no rubs, and no gallops Skin/Integumentary: Exposed skin without rashes or lesions. Results for orders placed or performed in visit on 12/25/22 URINALYSIS, POINT OF CARE (ENTER/EDIT) Result Value Ref Range Color, Urine Yellow Yellow or Light Yellow Clarity, Urine Clear Clear Glucose, Urine Negative Negative mg/dL Bilirubin, Urine Negative Negative Ketone, Urine Negative Negative mg/dL Specific [place], Urine 1.015 1.003 - 1.030 Blood, Urine Small Negative pH, Urine 5.5 5.0 - 7.5 units Protein, Urine 30 Negative mg/dL Urobilinogen, Urine 0.2 0.2 - 1.0 mg/dL Nitrite, Urine Positive Negative Esterase, Urine Moderate Negative Patient Instructions Drink plenty of fluids, increase intake over next 48-72 hours. Take all medications as prescribed, even if you are feeling better sooner. We will notify you of your urine culture results. F/U with PCP with no improvement in 3-5 days. Go immediately to the ED with any change or worsening symptoms including chills, fevers, back pain. Assessment: Dysuria (Primary) - URINALYSIS, POINT OF CARE (ENTER/EDIT) - CULTURE, URINE, QUANTITATIVE; Future; Expected date: 12/25/2022 - CULTURE, URINE, QUANTITATIVE - Cefdinir 300 MG Oral Capsule (Omnicef); Take 1 Capsule by mouth in the morning and 1 Capsule before bedtime. Do all this for 7 days. For 10 days.. Will treat for symptoms of UTI. To get culture guide therapy. Will contact with culture results. Spoke about preventative measures. Spoke about risk of nephrolithiasis and secondary work up for this. Deferred at this time. Care instructions given. Additional instructions per patient instructions attached. Follow up with PCP in 3-5 days if symptoms persist. Reasons to go to ED discussed with patient including but not limited to development of acute or severe symptoms. Patient agrees with the plan and demonstrates verbal understanding. Patient stable at the time of discharge. Patient goals for plan of care were discussed Yanna Arteaga PA-C [address] [address] documented in this encounter Nursing Notes * Vianey Aguilar LPN - 12/25/2022 12:17 PM EDT Magdalena Payan is a 87 year old female who presents to walk-in clinic today complaining of Chief Complaint Patient presents with Fever Frequent Urination Dysuria Main Symptoms:fever, frequent urination, painful/burning with urination. Cause: n/a How lon days Tried: AZO about 2 days ago. Pt accompanied by: self documented in this encounter Plan of Treatment Upcoming Encounters Date Type Specialty Care Team Description 12/28/2022 Immunization/Injection Hematology Oncolog y Nurse, Med 4 [address] [facility] [place], [place] [address] 01/18/2023 Appointment Radiology 01/25/2023 Office Visit Cardiology Payam Amor MD [address] [place] [address] 01/25/2023 Immunization/Injection Hematology Oncolog y Nurse, Med 4 [address] [facility] [place] [address] 02/07/2023 Office Visit Hematology Oncology Rubin Rendon MD [address] [facility] [place] [address] 02/16/2023 Office Visit Family Medicine Chelsey Mitchell DO [address] [place] [address] 04/28/2023 Office Visit Cardiology Rosa Tyler PA-C [address] [place] [address] 07/13/2023 Cardiac Studies Cardiology Flex [facility] [address] [place] [address] 10/23/2023 Nurse Only Nurse [facility] [address] [place] [address] Pending Results Name Type Priority Associated Diagnoses Date /Time CULTURE, URINE, QUANTITATIVE Lab Routine Dysuria 12/25/2022 12:35 PM EDT Scheduled Orders Name Type Priority Associated Diagnoses Orde r Schedule CULTURE, URINE, QUANTITATIVE Lab Routine Dysuria Expected: 12/25/2022, Expires: 12/26/2023 Scheduled Procedures Name Priority Associated Diagnoses Date/Ti [...] 10/18/2023 10/17/2022, 04/05 CKD PHOS USE SMARTSET 93333 10/18/202310/03, 04/12/2021, 02/28/2020, Additional history exists DIABETES-FOOT EXAM 10/18/2023 10/17/2022, 0 10/07/2020, 08/12/2019, Additional history exists Depression Screening, Annual for Pts 12 and Over 10/18/2023 10/17/2022 TSH 10/18/2023 10/17/2022, 10/03, 11/26/2020, Additional history exists CKD HGB USE SMARTSET 81026 12/09/202312/08, 12/08/2022, 08/15/2022, Additional history exists DXA [...] this encounter Medical Devices Implanted Type Area Children'S Lunchroom Supervisor Device Identifier Shelf Expiration Date Model / Serial / Lot Lens 21.0 Mx60 - [id number] Implanted:Qty: 1 on 03/23/2016 by Jax Theodore MD at OR [facility] [employer] : SURGICAL 10/02/2018 MX60-21.0 / [id number] / [id number] Lens 21.5 Mx60 - [id number] - [id number] Implanted:Qty: 1 on 04/20/2016 by Jax Theodore MD at OR [facility] Right: Eye [employer] : SURGICAL 09/02/2018 MX60-21.5 / [id number] / [id number] documented as of this encounter Procedures Procedure Name Priority Date/Time Associated Diagnosis Comments URINALYSIS, POINT OF CARE (ENTER/EDIT) Routine 12/25/2022 Dysuria documented in this encounter Results * URINALYSIS, POINT OF CARE (ENTER/EDIT) (12/25/2022) Color, Urine Yellow Yellow or Light Yellow Clarity, Urine Clear Clear Glucose, Urine Negative Negative mg/dL Bilirubin, Urine Negative Negative Ketone, Urine Negative Negative mg/dL Specific [place], Urine 1.015 1.003 - 1.030 Blood, Urine Small Negative pH, Urine 5.5 5.0 - 7.5 units Protein, Urine 30 Negative mg/dL Urobilinogen, Urine 0.2 0.2 - 1.0 mg/dL Nitrite, Urine Positive Negative Esterase, Urine Moderate Negative Urine 12/25/2022 Yanna Arteaga PA-C LAB POINT OF CARE TEST ENTER/EDIT ORDERABLES documented in this encounter Visit Diagnoses Diagnosis Dysuria- Primary documented in this encounter Advance Directives Latest [...] and were consensually agreed upon. Care Teams Battery Vent Plug Inserter Relationship Specialty Start Date End Date Chelsey Mitchell, DO [address] [place] [address] PCP - General Family Medicine 07/10/18 documented as of this encounter
--- OUTSIDE RECORDS SUMMARY | 2023-06-11 13:26 | External Medical Summary | Summary of Care ---
Author Name Unknown Organization [facility] Address [address] [place] [address] Phone [phone] Care Team Providers Care Needle Maker Name Role Phone Chelsey Mitchell DO Primary Care Provider [phone] Reason for Visit * Reason Onset Date Comments Precert Denied 01/20/2023 Encounter Details Date Type Department Care Team Description 01/20/2023 Telephone Hematology/Oncology [facility] [address] [place] [address] Rubin Rendon MD [address] [address] Precert Denied Allergies Active Allergy Reactions Severity [...] mRNA, LNP-s, No Pre serve, 2-Dose Series ([employer]) 10/01/2021,05/05/2021,09/10/2020,08/03 Covid-19, Mrna, Lnp-s, Pf, B ivalent, 30 Mcg, IM, 12 yrs and above ([employer]) 05/10/2022 Pneumococcal Conjugate Vacc, 13 Valent (Prevnar) [...] to appeal (we do not have a [facility] portal so will need the fax number on the denial. Thanks! * Telephone Encounter - DIAZ Serna - 01/20/2023 11:03 AM EDT The PET CT requested for Magdalena Payan [facility] Per [facility] denial reason: Your records do not show [...] removal of primary disease. After speaking with [facility] rep, P2P is not an option and an appeal would have to be completed. For Physician/Providers Use Only When Filing an Appeal: Portal Online Submission: Go to [email or web address] Thank you, DIAZ Serna 01/20/2023, 11:04 AM documented in this encounter Plan of Treatment Upcoming Encounters Date Type Specialty Care Team Description 01/25/2023 Office Visit Cardiology Payam Amor MD [address] [place] [address] 01/25/2023 Immunization/Injecti o n Hematology Oncology Nurse, Med 4 [address] [facility] [place], [place] [address] 02/07/2023 Office Visit Hematology Oncology Rubin Rendon MD [address] [facility], [place] [address] 02/16/2023 Office Visit Family Medicine Chelsey Mitchell DO [address] [place] [facility] [place] [address] 04/28/2023 Office Visit Cardiology Rosa Tyler PA-C [address] [place] [address] 07/13/2023 Cardiac Studies Cardiology Flex [facility] [address] [place] [address] 10/23/2023 Nurse Only Ancillary Nurse [facility] [address] [place] [facility] [place] [address] Scheduled Procedures Name Priority Associated Diagnoses Date/Ti [...] 10/18/2023 10/17/2022, 04/05 CKD PHOS USE SMARTSET 29547 10/18/202310/03, 04/12/2021, 02/28/2020, Additional history exists DIABETES-FOOT EXAM 10/18/2023 10/17/2022, 0 10/07/2020, 08/12/2019, Additional history exists Depression Screening, Annual for Pts 12 and Over 10/18/2023 10/17/2022 TSH 10/18/2023 10/17/2022, 10/03, 11/26/2020, Additional history exists CKD HGB USE SMARTSET 97459 12/09/202312/08, 12/08/2022, 08/15/2022, Additional history exists DXA [...] this encounter Medical Devices Implanted Type Area Design Manager Device Identifier Shelf Expiration Date Model / Serial / Lot Lens 21.0 Mx60 - [id number] Implanted:Qty: 1 on 03/23/2016 by Jax Theodore MD at OR [facility] [employer] : SURGICAL 10/02/2018 MX60-21.0 / [id number] / [id number] Lens 21.5 Mx60 - [id number] - [id number] Implanted:Qty: 1 on 04/20/2016 by Jax Theodore MD at OR [facility] Right: Eye [employer] : SURGICAL 09/02/2018 MX60-21.5 / [id number] / [id number] documented as of this encounter Advance Directives [...] and were consensually agreed upon. Care Teams Needle Maker Relationship Specialty Start Date End Date Chelsey Mitchell DO [address] [place] [facility] [place] [address] PCP - General Family Medicine 07/10/18 documented as of this encounter
--- OUTSIDE RECORDS SUMMARY | 2023-06-11 13:26 | External Medical Summary | Summary of Care ---
Author Name Unknown Organization [facility] Address [address] [place] [address] Phone [phone] Care Team Providers Care Supervisor Last Model Department Name Role Phone Chelsey Mitchell DO Primary Care Provider [phone] Reason for Visit * Reason Onset Date Comments Order Request 01/13/2023 Encounter Details Date Type Department Care Team Description 01/13/2023 Telephone [facility] [address] [place] [facility] [place] [address] Alivia Rodrigez MD [address] [place] [address] Order Request Allergies Active Allergy Reactions Severity Noted Date Comments Bee Venom Abdominal pain,Edema face/lips/tongue High 02/17/2011 Sulfa Antibiotics Rash Medium 12/26/2007 documented as of this encounter (statuses as of 01/16/2023) Medications Medication Sig Dispensed Refills Start Date [...] Pain, Mild. 30 Tablet 0 01/02/2023 Active documented as of this encounter (statuses as of 01/16/2023) Active Problems Problem Noted Date Diabetic peripheral [...] as of this encounter (statuses as of 01/16/2023) Resolved Problems Problem Noted Date Resolved Date [...] as of this encounter (statuses as of 01/16/2023) Immunizations Name Administration Dates Next Due COVID-19 mRNA, LNP-s, No Pre serve, 2-Dose Series ([employer],) 10/01/2021,05/05/2021,09/10/2020,08/03 Covid-19, Mrna, Lnp-s, Pf, B ivalent, 30 Mcg, IM, 12 yrs and above ([employer],) 05/10/2022 Pneumococcal Conjugate Vacc, 13 Valent (Prevnar) [...] encounter Miscellaneous Notes * Telephone Encounter - Jennifer Aguilar LPN - 01/16/2023 11:57 AM EDT Contacted [facility] for paperwork to be faxed to office * Telephone Encounter - Martita Oakes CPhT - 01/13/2023 1:28 PM EDT An order was requested for this patient. Name of Requestor: tucker Tovar Request: diabetic shoes Diagnosis/Reason for Request: diabetic Does the order need to be faxed somewhere? If so, where?: [facility] Fax Number, if applicable: n/a Call Back Number: [phone] Thank you, Martita Oakes CPhT II [employer] [facility] ([facility] (Formerly [facility]) 01/13/2023, 1:28 PM documented in this encounter Plan of Treatment Upcoming Encounters Date Type Specialty Care Team Description 01/18/2023 Appointment Radiology 01/25/2023 Office Visit Cardiology Payam Amor MD [address] [place] [address] 01/25/2023 Immunization/Injection Hematology Oncolog y Nurse, Med [address] [place] [address] 02/07/2023 Office Visit Hematology Oncology Rubin Rendon MD [address] [place] [address] 02/16/2023 Office Visit Family Medicine Chelsey Mitchell DO [address] [place] [address] 04/28/2023 Office Visit Cardiology Rosa [facility]-C [address] [facility] [address] 07/13/2023 Cardiac Studies Cardiology Rashida, Pacer [facility] [address] [place] [address] 10/23/2023 Nurse Only Nurse [facility] [address] [place] [address] Scheduled Procedures Name Priority Associated Diagnoses Date/Ti [...] 10/18/2023 10/17/2022, 04/05 CKD PHOS USE SMARTSET 05952 10/18/202310/03, 04/12/2021, 02/28/2020, Additional history exists DIABETES-FOOT EXAM 10/18/2023 10/17/2022, 0 10/07/2020, 08/12/2019, Additional history exists Depression Screening, Annual for Pts 12 and Over 10/18/2023 10/17/2022 TSH 10/18/2023 10/17/2022, 10/03, 11/26/2020, Additional history exists CKD HGB USE SMARTSET 79129 12/09/202312/08, 12/08/2022, 08/15/2022, Additional history exists DXA [...] this encounter Medical Devices Implanted Type Area Immigration Investigator Device Identifier Shelf Expiration Date Model / Serial / Lot Lens 21.0 Mx60 - [id number] Implanted:Qty: 1 on 03/23/2016 by Jax Theodore MD at [facility] [employer] : SURGICAL 10/02/2018 MX60-21.0 / [id number] / [id number] Lens 21.5 Mx60 - [id number] - [id number] Implanted:Qty: 1 on 04/20/2016 by Jax Theodore MD at OR [facility] Right: Eye [employer] : SURGICAL 09/02/2018 MX60-21.5 / [id number] / [id number] documented as of this encounter Advance Directives [...] and were consensually agreed upon. Care Teams Supervisor Last Model Department Relationship Specialty Start Date End Date Chelsey Mitchell, [address] [place] [address] PCP - General Family Medicine 07/10/18 documented as of this encounter
--- OUTSIDE RECORDS SUMMARY | 2023-06-11 13:26 | External Medical Summary | Summary of Care ---
Author Name Unknown Organization [facility] Address [address] [place] [address] Phone [phone] Care Team Providers Care Sheet Metal Pattern Cutter Name Role Phone Chelsey Mitchell DO Primary Care Provider + [phone] Reason for Visit * Reason Onset Date Comments Order Request 01/13/2023 Encounter Details Date Type Department Care Team Description 01/13/2023 Telephone [facility] [address] [place] [address] Alivia Rodrigez MD [address] [place] [address] Order Request Allergies Active Allergy Reactions Severity Noted Date Comments Bee Venom Abdominal pain,Edema face/lips/tongue High 02/17/2011 Sulfa Antibiotics Rash Medium 12/26/2007 documented as of this encounter (statuses as of 01/17/2023) Medications Medication Sig Dispensed Refills Start Date [...] as of this encounter (statuses as of 01/17/2023) Active Problems Problem Noted Date Diabetic peripheral [...] as of this encounter (statuses as of 01/17/2023) Resolved Problems Problem Noted Date Resolved Date [...] as of this encounter (statuses as of 01/17/2023) Immunizations Name Administration Dates Next Due COVID-19 mRNA, LNP-s, No Pre serve, 2-Dose Series ([employer]) 10/01/2021,05/05/2021,09/10/2020,08/03 Covid-19, Mrna, Lnp-s, Pf, B ivalent, 30 Mcg, IM, 12 yrs and above ([employer]) 05/10/2022 Pneumococcal Conjugate Vacc, 13 Valent (Prevnar) [...] Telephone Encounter - Jennifer Aguilar LPN - 01/17/2023 12:20 PM EDT Paper work is on Dr. Mirna inman * Telephone Encounter - Jennifer Aguilar LPN - 01/16/2023 11:57 AM EDT Contacted [facility] for paperwork to be faxed to office * Telephone Encounter - Marttia Oakes CPhT - 01/13/2023 1:28 PM EDT An order was requested for this patient. Name of Requestor: tucker Order Request: diabetic shoes Diagnosis/Reason for Request: diabetic Does the order need to be faxed somewhere? If so, where?: [facility] Fax Number, if applicable: n/a Call Back Number: [phone] Thank you, Martita Oakes CPhT II Dirt Shoveler [facility] ([facility]) (Formerly Telepharmacy) 01/13/2023, 1:28 PM documented in this encounter Plan of Treatment Upcoming Encounters Date Type Specialty Care Team Description 01/18/2023 Hospital Encounter Radiology 01/25/2023 Office Visit Cardiology Payam Amor MD [address] [place] [address] 01/25/2023 Immunization/Injection Hematology Oncolog y Nurse, Med [address] [place] [address] 02/07/2023 Office Visit Hematology Oncology Rubin Rendon MD [address] [place] [address] 02/16/2023 Office Visit Family Medicine Chelsey Mitchell, [address] [place] [address] 04/28/2023 Office Visit Cardiology Rosa Tyler PA-C [address] [place] [address] 07/13/2023 Cardiac Studies Cardiology [facility] [address] [place] [address] 10/23/2023 Nurse Only Ancillary [place], Nurse [facility] [address] [place] [address] Scheduled Procedures Name Priority Associated Diagnoses Date/Ti [...] 10/18/2023 10/17/2022, 04/05 CKD PHOS USE SMARTSET 24424 10/18/202310/03, 04/12/2021, 02/28/2020, Additional history exists DIABETES-FOOT EXAM 10/18/2023 10/17/2022, 0 10/07/2020, 08/12/2019, Additional history exists Depression Screening, Annual for Pts 12 and Over 10/18/2023 10/17/2022 TSH 10/18/2023 10/17/2022, 10/03, 11/26/2020, Additional history exists CKD HGB USE SMARTSET 63506 12/09/202312/08, 12/08/2022, 08/15/2022, Additional history exists DXA [...] this encounter Medical Devices Implanted Type Area Hose Tubing Backer Device Identifier Shelf Expiration Date Model / Serial / Lot Lens 21.0 Mx60 - [id number] Implanted:Qty: 1 on 03/23/2016 by Jax Theodore MD at OR [facility] [employer] : SURGICAL 10/02/2018 MX60-21.0 / [id number] / [id number] Lens 21.5 Mx60 - [id number] - [id number] Implanted:Qty: 1 on 04/20/2016 by Jax Theodore MD at OR [facility] Right: Eye [employer] : SURGICAL 09/02/2018 MX60-21.5 / [id number] / [id number] documented as of this encounter Advance Directives [...] and were consensually agreed upon. Care Teams Sheet Metal Pattern Cutter Relationship Specialty Start Date End Date Chelsey Mitchell, DO [address], [place] [id number] PCP - General Family Medicine 07/10/18 documented as of this encounter
--- OUTSIDE RECORDS SUMMARY | 2023-06-11 13:26 | External Medical Summary | Summary of Care ---
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) Procedures PET CT, SKULL BASE TO MID THIGH, NETSPOT GA68 Rbuin Rendon MD [address] [place] [address] Referral ID Status Reason Start Date Expiration Date Visits Requested Visits Authorized [id number] Pending Review Precert 01/16/2023 02/16/[phone] Encounter Details Date Type Department Care Team Description 01/18/[address] IMAGING, [facility] [address] [place] [address] Arrived Allergies Active Allergy Reactions Severity Noted Date Comments Bee Venom Abdominal pain,Edema face/lips/tongue High 02/17/2011 Sulfa Antibiotics Rash Medium 12/26/2007 documented as of this encounter (statuses as of 01/19/2023) Medications Medication Sig Dispensed Refills Start Date [...] Pain, Mild. 30 Tablet 0 01/02/2023 Active Hospital, Clinic, or Other Facility Administered Medication Ordered Dose Route Frequency Start Date End Date Status sodium chloride 0.9 % flush/inj 10 mL 10 mL IV PUSH ONCE 01/18/2023 01/18/2023 Ended documented as of this encounter (statuses as of 01/19/2023) Active Problems Problem Noted Date Diabetic peripheral [...] as of this encounter (statuses as of 01/19/2023) Resolved Problems Problem Noted Date Resolved Date [...] as of this encounter (statuses as of 01/19/2023) Immunizations Name Administration Dates Next Due COVID-19 mRNA, LNP-s, No Pre serve, 2-Dose Series ([employer]) 10/01/2021,05/05/2021,09/10/2020,08/03 Covid-19, Mrna, Lnp-s, Pf, B ivalent, [...] Sign Reading Time Taken Comments Blood Pressure - - Pulse - - Temperature - - Respiratory Rate - - Oxygen Saturation - - Inhaled Oxygen Concentration - - Weight 83.9 kg (185 lb) 01/18/2023 8:00 AM EDT Height 157.5 cm (5' 2") 01/18/2023 8:00 AM EDT Body Mass Index 33.84 01/18/2023 8:00 AM EDT documented in this encounter Plan of Treatment Upcoming Encounters Date Type Specialty Care Team Description 01/25/2023 Office Visit Cardiology Payam Amor MD [address] [place] [address] 01/25/2023 Immunization/Injecti o n Hematology Oncology Nurse, Med [address] [place] [address] 02/07/2023 Office Visit Hematology Oncology Rubin Rendon MD [address] [place] [address] 02/16/2023 Office Visit Family Medicine Chelsey Mitchell DO [address] [place] [address] 04/28/2023 Office Visit [facility]iology [facility] [address] [facility] [address] 07/13/2023 Cardiac Studies Cardiology [facility] [address] [place] [address] 10/23/2023 Nurse Only Ancillary Nurse [facility] [address] [place] [address] Scheduled Procedures Name Priority Associated Diagnoses Date/Ti [...] 10/18/2023 10/17/2022, 04/05 CKD PHOS USE SMARTSET 12537 10/18/202310/03, 04/12/2021, 02/28/2020, Additional history exists DIABETES-FOOT EXAM 10/18/2023 10/17/2022, 0 10/07/2020, 08/12/2019, Additional history exists Depression Screening, Annual for Pts 12 and Over 10/18/2023 10/17/2022 TSH 10/18/2023 10/17/2022, 10/03, 11/26/2020, Additional history exists CKD HGB USE SMARTSET 89389 12/09/202312/08, 12/08/2022, 08/15/2022, Additional history exists DXA [...] this encounter Medical Devices Implanted Type Area Fund Raiser Device Identifier Shelf Expiration Date Model / Serial / Lot Lens 21.0 Mx60 - [id number] Implanted:Qty: 1 on 03/23/2016 by Jax Theodore MD at OR [facility] [employer] : SURGICAL 10/02/2018 MX60-21.0 / [id number] / [id number] Lens 21.5 Mx60 - [id number] - [id number] Implanted:Qty: 1 on 04/20/2016 by Jax Theodore MD at OR [facility] Right: Eye [employer] : SURGICAL 09/02/2018 MX60-21.5 / [id number] / [id number] documented as of this encounter Procedures Procedure Name Priority Date/Time Associated Diagnosis Comments PET CT, SKULL BASE TO MID THIGH, NETSPOT GA68 Routine 01/18/2023 9:44 AM EDT 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) documented in this encounter Administered Medications Inactive Administered Medications - up to 3 most recent administrations Medication Order MAR Action Action Date Dose Rate Site Gallium Ga 68 Dotatate (Netspot) inj 5.4 millicurie 5.4 millicurie, Intravenous, ONCE, On Mon01/18/23 at 0828, For 1 dose, Radiology Medication Routing (Non-IR) Given 01/18/2023 8:15 AM EDT 5.4 millicuries sodium chloride 0.9 % flush/inj 10 mL 10 mL, IV Push, ONCE, On Mon01/18/23 at 0828, For 1 dose, Do not flush if lock, PICC, or central line not in place; IV infusing or unable to flush., Radiology Medication Routing (Non-IR) Given 01/18/2023 8:15 AM EDT 10 mL documented in this encounter Advance Directives [...] and were consensually agreed upon. Care Teams Hand Spring Former Relationship Specialty Start Date End Date Chelsey Mitchell, DO [address], [place] [phone] PCP - General Family Medicine 07/10/18 documented as of this encounter
--- OUTSIDE RECORDS SUMMARY | 2023-06-11 13:26 | External Medical Summary | Summary of Care ---
Author Name Unknown Organization [facility] Address [address] [place] [address] Phone [phone] Care Team Providers Care Cleat Blanker Name Role Phone Chelsey Mitchell DO Primary Care Provider + [phone] Reason for Visit * Reason Comments Re-Check [facility] Encounter Details Date Type Department Care Team Description 10/13/2021 Office Visit [facility] [address] [place] [address] Chelsey Mitchell DO [address] [place] [address] Type 2 diabetes mellitus with [...] mRNA, LNP-s, No Pre serve, 2-Dose Series ([employer]) 10/01/2021,05/05/2021,09/10/2020,08/03 Pneumococcal Conjugate Vacc, 13 Valent (Prevnar) [...] Lamar Patient Education Copyright 2008 - 2010 [facility] except where otherwise noted Preventing Falls: Exercises [...] 10 times. Repeat this throughout the day. [employer] Patient Education Copyright 2008 - 2010 [employer] except where otherwise noted. Preventing Falls: Moving [...] Carries hx of tachy bryn syndrome and s/p pacemaker. She will getting [...] Visit Cardiology [facility] [address] [facility] [address] 01/25/2023 Immunization/Injection Hematology Oncolog y Nurse, Med [address] [place] [address] 02/07/2023 Office Visit Hematology Oncology Rubin Rendon MD [address] [place] [address] 02/16/2023 Office Visit Family Medicine Chelsey Mitchell DO [address] [place] [address] 04/28/2023 Office Visit Cardiology Rosa Tyler PA-C [address] [facility] [place] [address] 07/13/2023 Cardiac Studies Cardiology Flex [facility] [address] [facility] [place] [address] 10/23/2023 Nurse Only [facility] Nurse [facility] [address] [place] [address] Scheduled Procedures Name Priority Associated Diagnoses Date/Ti [...] 10/18/2023 10/17/2022, 04/05 CKD PHOS USE SMARTSET 84360 10/18/202310/03, 04/12/2021, 02/28/2020, Additional history exists DIABETES-FOOT EXAM 10/18/2023 10/17/2022, 0 10/07/2020, 08/12/2019, Additional history exists Depression Screening, Annual for Pts 12 and Over 10/18/2023 10/17/2022 TSH 10/18/2023 10/17/2022, 10/03, 11/26/2020, Additional history exists CKD HGB USE SMARTSET 08859 12/09/202312/08, 12/08/2022, 08/15/2022, Additional history exists DXA [...] this encounter Medical Devices Implanted Type Area Mixing Machine Tender Cork Gasket Device Identifier Shelf Expiration Date Model / Serial / Lot Lens 21.0 Mx60 - [id number] Implanted:Qty: 1 on 03/23/2016 by Jax Theodore MD at OR [facility] [employer] : SURGICAL 10/02/2018 MX60-21.0 / [id number] / [id number] Lens 21.5 Mx60 - [id number] - [id number] Implanted:Qty: 1 on 04/20/2016 by Jax Theodore MD at [facility] Right: Eye [employer] : SURGICAL 09/02/2018 MX60-21.5 / [id number] / [id number] documented as of this encounter Procedures Procedure [...] National Osteoporosis Foundation (www.nof.org) Clinicians Guide and [place] Association of Clinical Endocrinology (AACE) Guidelines (www.aace.com) and the application of current WHO FRAX tool (https://www.ashlee.ac.uk/FRAX/) as well as the 2017 [place] [employer] Glucocorticoid Induced Osteoporosis (GIOP) Guidelines (rheumatology.org/Practice-Quality/Clinical-Support/Cjauqhht-Raryrkfj-Mwpzk lines) using Bone mineral density derived T-scores [...] the National Osteoporosis Foundation website (www.nof.org) and [place] Association of Clinical Endocrinology (AACE-www.aace.com). Osteoporosis prevention [...] at the FRAX website (https://www.ashlee.ac.uk/FRAX/), and the [place] College of Rheumatology website (https://www.rheumatology.org/Practice-Quality/Clinical-Support/Clinical-Pr actice-Guidelines). 1. No specific prescription therapy is needed at this point in time. 2. A repeat study should be considered in 2 years GARRISON MITCHELL M.D. ISCD Certified Clinical Lieutenant Colonel Department of Rheumatology 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 Previous treatment: NONE B. Current treatment: NONE Major risk factors: none Using a [employer] [place] images of the lumbar [...] T4 IF INDICATED (10/13/2021 11:39 AM EDT) [facility] TSH 0.80 0.27 - 4.20 uIU/mL 10/13/2021 10:33 PM EDT LABORATORY [facility] Blood Venous blood specimen / Unknown Venipuncture / Unknown 10/13/2021 11:39 AM EDT 10/13/2021 11:40 AM EDT Chelsey Mitchell LAB BLOOD ORDERABLES Performing Organization Address [facility] de Phone Number LABORATORY [facility] [address] [place] [address] * (ABNORMAL) HEMOGLOBIN A1C (10/13/2021 11:39 AM EDT) Hemoglobin A1C 7.3(H) 4.0 - 5.6 % 10/13/2021 10:29 PM EDT LABORATORY [facility] Comment:The use of HbA1c to monitor glycemic status is based on normal hemoglobin and HbA composition. This test should not be used in patients with abnormal hemoglobin that affects the half life of the red blood cell or the in vivo glycation rates. Estimated Average Glucose 163(H) <126 mg/dL 10/13/2021 10:29 PM EDT LABORATORY [facility] Blood Venous blood specimen / Unknown Venipuncture / Unknown 10/13/2021 11:39 AM EDT 10/13/2021 11:40 AM EDT Chelsey Mitchell LAB BLOOD ORDERABLES Performing Organization Address [facility] de Phone Number LABORATORY [address] [address] documented in this encounter Visit Diagnoses Diagnosis Type 2 diabetes mellitus with stage 3b chronic kidney disease, with long-term current use of insulin ([facility])- Primary Risk and functional assessment Screening [...] and were consensually agreed upon. Care Teams Cleat Blanker Relationship Specialty Start Date End Date Chelsey Mitchell, [address] [place] [address] PCP - General Family Medicine 07/10/18 documented as of this encounter
--- OUTSIDE RECORDS SUMMARY | 2023-06-11 13:26 | External Medical Summary | Summary of Care ---
Author Name Unknown Organization [facility] Address [address] [place] [address] Phone [phone] Care Team Providers Care Factory Representative Name Role Phone Tania Mitchell DO Primary Care Provider + [phone] Reason for Visit * Reason Onset Date Comments Medication Refill 01/13/2023 Encounter Details Date Type Department Care Team Description 01/13/2023 Refill [place] [address] [place] [address] Tania Mitchell DO [address] [place] [address] Osteoarthritis of multiple joints, unspecified [...] Pain, Mild. 30 Tablet 0 01/19/2023 Active HYDROcodone-Acetami nophen 5-325 MG Oral TabletIndications:O steoarthritis of multiple joints, unspecified osteoarthritis type,Generalized OA Take 1 Tablet by mouth every 6 hours as needed for Pain, Mild. 30 Tablet 0 01/02/2023 01/14/20 23 Discontinu ed(Refill) documented as of this [...] mRNA, LNP-s, No Pre serve, 2-Dose Series ([employer]) 10/01/2021,05/05/2021,09/10/2020,08/03 Covid-19, Mrna, Lnp-s, Pf, B ivalent, [...] encounter Miscellaneous Notes * Telephone Encounter - DO Armida Dyer 01/19/2023 9:27 PM EDTSigned Prescriptions: Disp Refills HYDROcodone-Acetaminophen 5-325 MG Oral Ta*30 Tab*0 Sig: Take 1 Tablet by mouth every 6 hours as needed for Pain, Mild. Authorizing Provider: TANIA MITCHELL * Telephone Encounter - Wang Mendez [facility] - 01/13/2023 4:00 PM EDTPending Prescriptions: Disp Refills HYDROcodone-Acetaminophen 5-325 MG Oral Ta*30 Tab*0 Sig: Take 1 Tablet by mouth every 6 hours as needed for Pain, Mild. * Telephone Encounter - Wang Mendez [facility] - 01/13/2023 3:59 PM EDT I have reviewed the patients controlled substance dispensing history in the Prescription Drug Monitoring Program in compliance with the [facility] regulations before prescribing a controlled substance. PDMP checked on 01/13/2023. Pending Prescriptions: Disp Refills HYDROcodone-Acetaminophen 5-325 MG Oral T*30 Tab*0 Sig: Take 1 Tablet by mouth every 6 hours as needed for Pain, Mild. Last Visit: 12/08/2022 (in office), Visit date not found (telemedicine) Next Visit: 02/16/2023 Date medication was last filled: 01-02-23 Date medication is due for refill: 01-09-23 [id number] [facility] Is this request for a controlled substance? [...] ANDRE 4.9 Please approve if appropriate. Thanks, Gael StewartPh. Clinical Pharmacist [facility] [phone] ext [phone] 01/13/2023,3:59 PM * Telephone Encounter - Martita Oakes [facility] - 01/13/2023 1:26 PM EDT Did you pend patient's preferred pharmacy and medication before forwarding?yes Pharmacy: [id number] [facility] Pending Prescriptions: Disp Refills HYDROcodone-Acetaminophen 5-325 MG Oral T*30 Tab*0 Sig: Take 1 Tablet by mouth every 6 hours as needed for Pain, Mild. Last Visit: 12/08/2022 (in office), Visit date not found (telemedicine) Next Visit: 02/16/2023 If no future appointments scheduled, and last appointment is greater than a year ago, please schedule patient for a follow-up appointment Last date the medication was ordered: 01/02/23 Is this request for a controlled substance?Yes, What was the last refill date 01/02/23 w/ quantity 30 and dosage Take 1 Tablet by mouth every 6 hours as needed for Pain, Mildand Urine Drug Screen was completed Urine Drug [...] Visit Cardiology [facility] [address] [facility] [address] 01/25/2023 Immunization/Injecti o n Hematology Oncology Nurse, Med [address] [place] [address] 02/07/2023 Office Visit Hematology Oncology Rubin Rendon MD [address] [place] [address] 02/16/2023 Office Visit Family Medicine Tania Mitchell DO [address] [place] [address] 04/28/2023 Office Visit Cardiology Rosa Tyler PA-C [address] [place] [address] 07/13/2023 Cardiac Studies [facility]iology [facility] [address] [place] [address] 10/23/2023 Nurse Only Ancillary Nurse [facility] [address] [place] [id number] Scheduled Procedures Name Priority Associated Diagnoses Date/Ti [...] 10/18/2023 10/17/2022, 04/05 CKD PHOS USE SMARTSET 43801 10/18/202310/03, 04/12/2021, 02/28/2020, Additional history exists DIABETES-FOOT EXAM 10/18/2023 10/17/2022, 0 10/07/2020, 08/12/2019, Additional history exists Depression Screening, Annual for Pts 12 and Over 10/18/2023 10/17/2022 TSH 10/18/2023 10/17/2022, 10/03, 11/26/2020, Additional history exists CKD HGB USE SMARTSET 19742 12/09/202312/08, 12/08/2022, 08/15/2022, Additional history exists DXA [...] this encounter Medical Devices Implanted Type Area Back Panel Padder Device Identifier Shelf Expiration Date Model / Serial / Lot Lens 21.0 Mx60 - [id number] Implanted:Qty: 1 on 03/23/2016 by Jax Theodore MD at OR [facility] [employer]OM[employer] : SURGICAL 10/02/2018 MX60-21.0 / [id number] / [id number] Lens 21.5 Mx60 - [id number] - [id number] Implanted:Qty: 1 on 04/20/2016 by Jax Theodore MD at OR [facility] Right: Eye [employer] LOM[employer] : SURGICAL 09/02/2018 MX60-21.5 / [id number] / [id number] documented as of this encounter Visit Diagnoses [...] and were consensually agreed upon. Care Teams Factory Representative Relationship Specialty Start Date End Date Tania Mitchell, DO [address] [place] [id number] PCP - General Family Medicine 07/10/18 documented as of this encounter
--- OUTSIDE RECORDS SUMMARY | 2023-06-11 13:26 | External Medical Summary | Summary of Care ---
Author Name Unknown Organization [facility] Address [address] [place] [address] Phone [phone] Care Team Providers Care Protohistorian Name Role Phone Chelsey Mitchell DO Primary Care Provider [phone] Reason for Visit * Reason Onset Date Comments Test Results 12/27/2022 Encounter Details Date Type Department Care Team Description 12/27[facility] [address] [place] [address] Tyron Barth PA-C [address] [place] [address] Test Results Allergies Active Allergy Reactions Severity Noted Date [...] mRNA, LNP-s, No Pre serve, 2-Dose Series ([employer]) 10/01/2021,05/05/2021,09/10/2020,08/03 Covid-19, Mrna, Lnp-s, Pf, B ivalent, 30 Mcg, IM, 12 yrs and above ([employer]) 05/10/2022 Pneumococcal Conjugate Vacc, 13 Valent (Prevnar) [...] encounter Miscellaneous Notes * Telephone Encounter - Aspen Dunaway LPN - 12/27/2022 2:46 PM EDT I identified pt by name and , verified by patient. Pt has been informed of below message and verbalized understanding. * Telephone Encounter - Tyron Barth PA-C - 12/27/2022 1:41 PM EDT Please advise the patient that the bacteria in urine is sensitive to antibiotic prescribed (Cefdinir). Recommend finishing full course of antibiotics. With no improvement or any persistent symptoms follow-up with primary care provider. Thank you! Tyron Barth PA-C documented in this encounter Plan of Treatment Upcoming Encounters Date Type Specialty Care Team Description 12/28/2022 Immunization/Injection Hematology Oncolog y Nurse, Med [address] [place] [address] 01/18/2023 Appointment Radiology 01/25/2023 Office Visit Cardiology Payam Amor MD [address], [place] [id number] 01/25/2023 Immunization/Injection Hematology Oncolog y Nurse, Med 4 [address] [facility] [place] [address] 02/07/2023 Office Visit Hematology Oncology Rubin Rendon MD [address] [place] [address] 02/16/2023 Office Visit Family Medicine Chelsey Mitchell, DO [address] [place] [address] 04/28/2023 Office Visit Cardiology Rosa Tyler PA-C [address] [facility] [place] [address] 07/13/2023 Cardiac Studies Cardiology Flex Field [facility] [address] [facility] [place] [address] 10/23/2023 Nurse Only Nurse [facility] [address] [place] [address] Scheduled Procedures Name Priority Associated Diagnoses Date/Ti [...] 10/18/2023 10/17/2022, 04/05 CKD PHOS USE SMARTSET 59050 10/18/202310/03, 04/12/2021, 02/28/2020, Additional history exists DIABETES-FOOT EXAM 10/18/2023 10/17/2022, 0 10/07/2020, 08/12/2019, Additional history exists Depression Screening, Annual for Pts 12 and Over 10/18/2023 10/17/2022 TSH 10/18/2023 10/17/2022, 10/03, 11/26/2020, Additional history exists CKD HGB USE SMARTSET 16756 12/09/202312/08, 12/08/2022, 08/15/2022, Additional history exists DXA [...] this encounter Medical Devices Implanted Type Area Dimensional Inspector Device Identifier Shelf Expiration Date Model / Serial / Lot Lens 21.0 Mx60 - [id number] Implanted:Qty: 1 on 03/23/2016 by Jax Theodore MD at OR [facility] [employer] : SURGICAL 10/02/2018 MX60-21.0 / [id number] / [id number] Lens 21.5 Mx60 - [id number] - [id number] Implanted:Qty: 1 on 04/20/2016 by Jax Theodore MD at OR [facility] Right: Eye [employer] : SURGICAL 09/02/2018 MX60-21.5 / [id number] / [id number] documented as of this encounter Advance Directives [...] and were consensually agreed upon. Care Teams Protohistorian Relationship Specialty Start Date End Date Chelsey Mitchell DO [address] [place] [address] PCP - General Family Medicine 07/10/18 documented as of this encounter
--- OUTSIDE RECORDS SUMMARY | 2023-06-11 13:27 | External Medical Summary | Summary of Care ---
Author Name Unknown Organization [facility] Address [address] [place] [facility] [place] [address] Phone [phone] Care Team Providers Care Magnetic Doctor Name Role Phone Chelsey Mitchell DO Primary Care Provider [phone] Reason for Visit * Reason Onset Date Comments Test Results 12/14/2022 Echo Encounter Details Date Type Department Care Team Description 12/14/2022 Telephone Cardiology, [facility] [address] [place] [address] Rosa Tyler PA-C [address] [place] [address] Test Results (Echo/) Allergies Active Allergy Reactions Severity Noted Date Comments Bee Venom Abdominal pain,Edema face/lips/tongue High 02/17/2011 Sulfa Antibiotics Rash Medium 12/26/2007 documented as of this encounter (statuses as of 12/15/2022) Medications Medication Sig Dispensed Refills Start Date [...] the day 90 Capsule 1 11/30/2022 Active documented as of this encounter (statuses as of 12/15/2022) Active Problems Problem Noted Date Diabetic peripheral [...] as of this encounter (statuses as of 12/15/2022) Resolved Problems Problem Noted Date Resolved Date [...] as of this encounter (statuses as of 12/15/2022) Immunizations Name Administration Dates Next Due COVID-19 mRNA, LNP-s, No Pre serve, 2-Dose Series ([employer]) 10/01/2021,05/05/2021,09/10/2020,08/03 Covid-19, Mrna, Lnp-s, Pf, B ivalent, 30 Mcg, IM, 12 yrs and above ([employer]) 05/10/2022 Pneumococcal Conjugate Vacc, 13 Valent (Prevnar) [...] Miscellaneous Notes * Telephone Encounter - DIAZ Posey - 12/14/2022 11:04 AM EDT Spoke with pt. Pt is scheduled 12/19/[address] Sparks. * Telephone Encounter - Vivian Gutierrez LPN - 12/14/2022 10:40 AM EDT Pt cold transferred to nurses station. Stating her 12/16/22 appointment with Darrell Sparks DO was cancelled and that she would like the results of her Echo. Pt is now scheduled in February. Echo results show changes since last, it was the recommendation of Rosa Tyler PA-C that she keep12/16 appt to discuss changes and assess symptoms. Echo results discussed with pt. Pt will need sooner appointment to discuss echo results. * Telephone Encounter - Vivian Gutierrez LPN - 12/14/2022 10:40 AM EDT ----- Message from Rosa Tyler PA-C sent at 12/09/2022 8:47 AM EDT ----- Echo results reviewed. Normal LVEF at 65-69% Aortic valve is calcified and now severe aortic stenosis is noted. Prox ascending aorta mildly enlarged at 4.2 cm. Patient should keep appt as scheduled next week with Dr. Sparks to discuss aortic stenosis and assess symptoms. FYI - Dr. Sparks documented in this encounter Plan of Treatment Upcoming Encounters Date Type Specialty Care Team Description 12/19/2022 Office Visit Cardiology Darrell Sparks DO [address] [place] [address] 12/28/2022 Immunization/Injection Hematology Oncolog y Nurse, [facility] 4 [facility] [address] 01/18/2023 Appointment Radiology 01/25/2023 Immunization/Injection Hematology Oncolog y Nurse, Med 4 [address] [facility] [place] [address] 02/07/2023 Office Visit Hematology Oncology Rubin Rendon MD [address] [place], [place] [address] 02/16/2023 Office Visit Family Medicine Chelsey Mitchell DO [address] [facility] [place] [address] 07/13/2023 Cardiac Studies Cardiology Flex Field [facility] [address] [place] [address] 10/23/2023 Nurse Only Ancillary Nurse [facility] [address] [facility] [place] [address] Scheduled Procedures Name Priority Associated Diagnoses Date/Ti me ESOPHAGOGASTRODUODENOSCOPY ( EGD), FLEXIBLE, TRANSORAL, ENDOSCOPIC ULTRASOUND Recall Duodenal nodule Health Maintenance Due Date Last Done Comments DTaP,Tdap,and Td Vaccines (1 - Tdap) 1954 Influenza Vaccine (FLU shot) (#1) 2023 04/15/2022, 03/18/2021, 04/09/2020, Additional history exists GFR 06/10/2023 12/08/2022, 08/03, 04/15/2022, Additional history exists HbA1c 06/10/2023 12/08/2022, 04/05, 10/13/2021, Additional history exists DIABETES-EYE EXAM 10/04/2023 10/03/2022, 06/21/2019 Albumin/Creatinine Ratio 10/18/2023 10/17/2022, 04/05 CKD PHOS USE SMARTSET 42584 10/18/202310/03, 04/12/2021, 02/28/2020, Additional history exists DIABETES-FOOT EXAM 10/18/2023 10/17/2022, 0 10/07/2020, 08/12/2019, Additional history exists Depression Screening, Annual for Pts 12 and Over 10/18/2023 10/17/2022 TSH 10/18/2023 10/17/2022, 10/03, 11/26/2020, Additional history exists CKD HGB USE SMARTSET 19502 12/09/202312/08, 12/08/2022, 08/15/2022, Additional history exists DXA [...] this encounter Medical Devices Implanted Type Area Rehabilitation Worker Device Identifier Shelf Expiration Date Model / Serial / Lot Lens 21.0 Mx60 - [id number] Implanted:Qty: 1 on 03/23/2016 by Jax Theodore MD at OR [facility] [employer] : SURGICAL 10/02/2018 MX60-21.0 / [id number] / [id number] Lens 21.5 Mx60 - [id number] - [id number] Implanted:Qty: 1 on 04/20/2016 by Jax Theodore MD at OR [facility] Right: Eye [employer] : SURGICAL 09/02/2018 MX60-21.5 / [id number] / [id number] documented as of this encounter Advance Directives [...] and were consensually agreed upon. Care Teams Magnetic Doctor Relationship Specialty Start Date End Date Chelsey Mitchell DO [address] [place] [address] PCP - General Family Medicine 07/10/18 documented as of this encounter
--- OUTSIDE RECORDS SUMMARY | 2023-06-11 13:27 | External Medical Summary | Summary of Care ---
Author Name Unknown Organization [facility] Address [address] [place] [address] Phone [phone] Care Team Providers Care Salesperson Meats Name Role Phone Chelsey Mitchell DO Primary Care Provider [phone] Reason for Visit * Reason Onset Date Comments Appointment 12/19/2022 Valve clinic Encounter Details Date Type Department Care Team Description 12/19/2022 Telephone Cardiology, [facility] [address] [place] [address] Darrell Sparks DO [address] [place] [address] Appointment (Valve clinic) Allergies Active Allergy Reactions Severity Noted Date Comments Bee Venom Abdominal pain,Edema face/lips/tongue High 02/17/2011 Sulfa Antibiotics Rash Medium 12/26/2007 documented as of this encounter (statuses as of 12/20/2022) Medications Medication Sig Dispensed Refills Start Date [...] Pain, Mild. 30 Tablet 0 12/14/2022 Active documented as of this encounter (statuses as of 12/20/2022) Active Problems Problem Noted Date Diabetic peripheral [...] as of this encounter (statuses as of 12/20/2022) Resolved Problems Problem Noted Date Resolved Date [...] as of this encounter (statuses as of 12/20/2022) Immunizations Name Administration Dates Next Due COVID-19 mRNA, LNP-s, No Pre serve, 2-Dose Series ([employer]) 10/01/2021,05/05/2021,09/10/2020,08/03 Covid-19, Mrna, Lnp-s, Pf, B ivalent, 30 Mcg, IM, 12 yrs and above ([employer]) 05/10/2022 Pneumococcal Conjugate Vacc, 13 Valent (Prevnar) [...] Miscellaneous Notes * Telephone Encounter - DIAZ Tiwari - 12/20/2022 3:29 PM EDT Sent for triage * Telephone Encounter - DIAZ Posey - 12/19/2022 10:51 AM EDT Valve clinic documented in this encounter Plan of Treatment Upcoming Encounters Date Type Specialty Care Team Description 12/28/2022 Immunization/Injection Hematology Oncolog y Nurse, Med 4 [address] [facility] [address] 01/18/2023 Appointment Radiology 01/25/2023 Immunization/Injection Hematology Oncolog y Nurse, Med 4 [address] [facility] [place] [address] 02/07/2023 Office Visit Hematology Oncology Rubin Rendon MD [address] [facility] [place] [address] 02/16/2023 Office Visit Family Medicine Chelsey Mitchell DO [address] [place] [address] 04/28/2023 Office Visit Cardiology Rosa Tyler PA-C [address] [place] [address] 07/13/2023 Cardiac Studies Cardiology Flex Field [facility] [address] [place] [address] 10/23/2023 Nurse Only Ancillary Nurse [facility] [address] [place] [address] Scheduled Procedures Name Priority Associated Diagnoses Date/Ti [...] 10/18/2023 10/17/2022, 04/05 CKD PHOS USE SMARTSET 92852 10/18/202310/03, 04/12/2021, 02/28/2020, Additional history exists DIABETES-FOOT EXAM 10/18/2023 10/17/2022, 0 10/07/2020, 08/12/2019, Additional history exists Depression Screening, Annual for Pts 12 and Over 10/18/2023 10/17/2022 TSH 10/18/2023 10/17/2022, 10/03, 11/26/2020, Additional history exists CKD HGB USE SMARTSET 49446 12/09/202312/08, 12/08/2022, 08/15/2022, Additional history exists DXA [...] this encounter Medical Devices Implanted Type Area Tray Service Worker Device Identifier Shelf Expiration Date Model / Serial / Lot Lens 21.0 Mx60 - [id number] Implanted:Qty: 1 on 03/23/2016 by Jax Theodore MD at OR [facility] [employer] : SURGICAL 10/02/2018 MX60-21.0 / [id number] / [id number] Lens 21.5 Mx60 - [id number] - [id number] Implanted:Qty: 1 on 04/20/2016 by Jax Theodore MD at [facility] Right: Eye [employer] : SURGICAL 09/02/2018 MX60-21.5 / [id number] / [id number] documented as of this encounter Advance Directives [...] and were consensually agreed upon. Care Teams Salesperson Meats Relationship Specialty Start Date End Date Chelsey Mitchell, [address] [place] [facility] [place] [address] PCP - General Family Medicine 07/10/18 documented as of this encounter
--- OUTSIDE RECORDS SUMMARY | 2023-06-11 13:27 | External Medical Summary | Summary of Care ---
Author Name Unknown Organization [facility] Address [address] [place] [address] Phone [phone] Care Team Providers Care Geology Teacher Name Role Phone Chelsey Mitchell DO Primary Care Provider [phone] Reason for Visit * Reason Onset Date Comments Appointment 12/19/2022 Valve clinic Encounter Details Date Type Department Care Team Description 12/19/2022 Telephone Cardiology, [facility] [address] [place] [address] Darrell Sparks DO [address] [place] [address] Appointment (Valve clinic) Allergies Active Allergy Reactions Severity Noted Date Comments Bee Venom Abdominal pain,Edema face/lips/tongue High 02/17/2011 Sulfa Antibiotics Rash Medium 12/26/2007 documented as of this encounter (statuses as of 12/19/2022) Medications Medication Sig Dispensed Refills Start Date [...] as of this encounter (statuses as of 12/19/2022) Active Problems Problem Noted Date Diabetic peripheral [...] as of this encounter (statuses as of 12/19/2022) Resolved Problems Problem Noted Date Resolved Date [...] as of this encounter (statuses as of 12/19/2022) Immunizations Name Administration Dates Next Due COVID-19 mRNA, LNP-s, No Pre serve, 2-Dose Series ([employer]) 10/01/2021,05/05/2021,09/10/2020,08/03 Covid-19, Mrna, Lnp-s, Pf, B ivalent, 30 Mcg, IM, 12 yrs and above ([employer]) 05/10/2022 Pneumococcal Conjugate Vacc, 13 Valent (Prevnar) [...] Hematology Oncolog y Nurse, Med [address] [place] [address] [address] 01/18/2023 Appointment Radiology 01/25/2023 Immunization/Injection Hematology Oncolog y Nurse, Med [address] [place] [address] [address] 02/07/2023 Office Visit Hematology Oncology Rubin Rendon MD [address] [place] [address] 02/16/2023 Office Visit Family Medicine Chelsey Mitchell DO [address] [place] [address] 04/28/2023 Office Visit Cardiology Rosa Tyler PA-C [address] [facility] [address] 07/13/2023 Cardiac Studies Cardiology Flex Field [facility] [address] [facility] [address] 10/23/2023 Nurse Only [facility] Nurse [facility] [address] [place] [address] Scheduled Procedures Name Priority Associated Diagnoses Date/Ti [...] 10/18/2023 10/17/2022, 04/05 CKD PHOS USE SMARTSET 46919 10/18/202310/03, 04/12/2021, 02/28/2020, Additional history exists DIABETES-FOOT EXAM 10/18/2023 10/17/2022, 0 10/07/2020, 08/12/2019, Additional history exists Depression Screening, Annual for Pts 12 and Over 10/18/2023 10/17/2022 TSH 10/18/2023 10/17/2022, 10/03, 11/26/2020, Additional history exists CKD HGB USE SMARTSET 82069 12/09/202312/08, 12/08/2022, 08/15/2022, Additional history exists DXA [...] this encounter Medical Devices Implanted Type Area Wharf Worker Device Identifier Shelf Expiration Date Model / Serial / Lot Lens 21.0 Mx60 - [id number] Implanted:Qty: 1 on 03/23/2016 by Jax Theodore MD at OR [facility] [employer] : SURGICAL 10/02/2018 MX60-21.0 / [id number] / [id number] Lens 21.5 Mx60 - [id number] - [id number] Implanted:Qty: 1 on 04/20/2016 by Jax Theodore MD at OR [facility] Right: Eye [employer] : SURGICAL 09/02/2018 MX60-21.5 / [id number] / [id number] documented as of this encounter Advance Directives [...] and were consensually agreed upon. Care Teams Geology Teacher Relationship Specialty Start Date End Date Chelsey Mitchell, [address] [place] [address] PCP - General Family Medicine 07/10/18 documented as of this encounter
--- OUTSIDE RECORDS SUMMARY | 2023-06-11 13:27 | External Medical Summary ---
Author Name Unknown Address Unknown Organization K01:[facility] [place] [address] [facility] [address] Laboratory Report Ordering Provider Test Date Status LEOBARDO MCKEON 12/25/2022 12:35:29 Final <10,000 colonies/ml mixed no rmal jerson Observation Date Value Abnormality Reference (Units ) Status Bacteria identified in Unspecified specimen by Culture 12/25/2022 12:35:29 [id number]^ESCHE RICHIA COLI Abnormal Final >100,000 colonies/mL Escheri javier coli Performing Location [facility] [place] [address] [facility] [address] Ordering Provider Test Date Status LEOBARDO MCKEON 12/25/2022 12:35:29 Final Observation Date Value Abnormality Reference (Units ) Status Ampicillin 12/25/2022 12:35:29 <=2 Susceptible Final Cefazolin 12/25/2022 12:35:29 <=4 Susceptible Final Cefepime susceptibility 12/25/2022 12:35:29 <=1 Susceptible Final Ceftriaxone suceptibility 12/25/2022 12:35:29 <=1 Susceptible Final Ciprofloxacin 12/25/2022 12:35:29 <=0.25 Susceptible Final Due to serious side effects, the FDA has advised against using Ciprofloxacin to treat uncomplicated UTIs and respiratory tract infections unless there are no alternative treatment options. Gentamicin susceptibility 12/25/2022 12:35:29 <=1 Susc eptible Final Nitrofurantoin susceptibility 12/25/2022 12:35:29 <=16 Susceptible Final Piperacillin + Tazobactamsusceptibility 12/25/2022 12:35:29 <=4 Susceptible Final TMP-SMZ susceptibility 12/25/2022 12:35:29 <=20 Suscept ible Final Test: Culture, Urine, Quanti tative
Specimen Source: Urine, Clean Catch
Specimen Type: Urine
Specimen Date: 12/25/2022 12:35 PM
Result Date: 12/27/2022 1:39 PM
Result Status: Final result
Abnormal: Yes
Resulting Lab: [facility]
[address]
[facility] [address]

CULTURE

>100,000 colonies/mL Escherichia coli (Abnormal)

<10,000 colonies/ml mixed normal jerson

SUSCEPTIBILITY

Escherichia coli
METHOD MICROBROTH DILUTIONS

AMPICILLIN <=2 Susceptible
CEFAZOLIN <=4 Susceptible
CEFEPIME <=1 Susceptible
CEFTRIAXONE <=1 Susceptible
CIPROFLOXACIN <=0.25 Susceptible [1]
GENTAMICIN <=1 Susceptible
NITROFURANTOIN <=16 Susceptible
PIPERACILLIN TAZOBACTAM <=4 Susceptible
TRIMETH/SULFAMETHOXAZOLE <=20 Susceptible

[1] Due to serious side effects, the FDA has advised against using
Ciprofloxacin to treat uncomplicated UTIs and respiratory tract infections
unless there are no alternative treatment options.

null Performing Location [facility] [place] [address] [facility] [address]
--- OUTSIDE RECORDS SUMMARY | 2023-06-11 13:27 | External Medical Summary | Summary of Care ---
Author Name Unknown Organization [facility] Address [address] [place] [address] Phone [phone] Care Team Providers Care Line Up Worker Name Role Phone Tania Orlando DO Primary Care Provider + [phone] Reason for Visit * Reason Onset Date Comments Medication Refill 12/12/2022 Encounter Details Date Type Department Care Team Description 12/12/2022 Refill [place] [address] [place] [address] Tania Orlando DO [address] [place] [address] Osteoarthritis of multiple joints, unspecified osteoarthritis type; Generalized OA Allergies Active Allergy Reactions Severity Noted Date Comments Bee Venom Abdominal pain,Edema face/lips/tongue High 02/17/2011 Sulfa Antibiotics Rash Medium 12/26/2007 documented as of this encounter (statuses as of 12/14/2022) Medications Medication Sig Dispensed Refills Start Date [...] Pain, Mild. 30 Tablet 0 12/14/2022 Active HYDROcodone-Acetami nophen 5-325 MG Oral TabletIndications:O steoarthritis of multiple joints, unspecified osteoarthritis type,Generalized OA Take 1 Tablet by mouth every 6 hours as needed for Pain, Mild. 30 Tablet 0 11/23/2022 12/13/19 23 Discontinu ed(Refill) documented as of this encounter (statuses as of 12/14/2022) Active Problems Problem Noted Date Diabetic peripheral [...] as of this encounter (statuses as of 12/14/2022) Resolved Problems Problem Noted Date Resolved Date [...] as of this encounter (statuses as of 12/14/2022) Immunizations Name Administration Dates Next Due COVID-19 mRNA, LNP-s, No Pre serve, 2-Dose Series ([employer]) 10/01/2021,05/05/2021,09/10/2020,08/03 Covid-19, Mrna, Lnp-s, Pf, B ivalent, [...] Telephone Encounter - Tania Orlando DO - 12/14/2022 3:08 PM EDTSigned Prescriptions: Disp Refills HYDROcodone-Acetaminophen 5-325 MG Oral Ta*30 Tab*0 Sig: Take 1 Tablet by mouth every 6 hours as needed for Pain, Mild. Authorizing Provider: TANIA ORLANDO * Telephone Encounter - Angel Whitman [facility] - 12/14/2022 2:44 PM EDTPending Prescriptions: Disp Refills HYDROcodone-Acetaminophen 5-325 MG Oral Ta*30 Tab*0 Sig: Take 1 Tablet by mouth every 6 hours as needed for Pain, Mild. * Telephone Encounter - Angel Whitman [facility] - 12/14/2022 2:42 PM EDT I have reviewed the patients controlled substance dispensing history in the Prescription Drug Monitoring Program in compliance with the [facility] regulations before prescribing a controlled substance. PDMP checked on 12/14/2022. Pending Prescriptions: Disp Refills HYDROcodone-Acetaminophen 5-325 MG Oral T*30 Tab*0 Sig: Take 1 Tablet by mouth every 6 hours as needed for Pain, Mild. Last Visit: 12/08/2022 (in office), Visit date not found (telemedicine) Next Visit: 02/16/2023 Date medication was last filled: 11/23 Date medication is due for refill: 11/30 [id number] [address] [facility] [facility] [place] Is this request for a controlled substance? [...] ANDRE 4.9 Please approve if appropriate. Thanks, Nick Whitman PharmD Clinical Pharmacist [facility] ([facility]) (Formerly Telepharmacy) [phone] 12/14/2022 2:42 PM * Telephone Encounter - JEREMIAH Salazar - 12/12/2022 1:49 PM EDT Did you pend patient's preferred [...] appointment Last date the medication was ordered: 11-23-22 Is this request for a controlled substance?Yes, What was the last refill date 11-23-22 w/ quantity 30 and dosage 5-325mgand Urine Drug Screen was completed Urine Drug [...] Cardiology Darrell Sparks DO [address] [place] [address] 12/28/2022 Immunization/Injection Hematology Oncolog y Nurse, [facility] [address] [facility] [address] 01/18/2023 Appointment Radiology 01/25/2023 Immunization/Injection Hematology Oncolog y Nurse, Med [address] [facility] [place] [address] 02/07/2023 Office Visit Hematology Oncology Rubin Rendon MD [address] [facility] [place] [address] 02/16/2023 Office Visit Family Medicine [facility]ania Orlando [facility] [address] [facility] [address] 07/13/2023 Cardiac Studies Cardiology Flex Field [facility] [address] [place] [address] 10/23/2023 Nurse Only Ancillary Nurse [facility] [address] [facility] [place] [address] Scheduled Procedures Name Priority Associated Diagnoses Date/Ti [...] 10/18/2023 10/17/2022, 04/05 CKD PHOS USE SMARTSET 23148 10/18/202310/03, 04/12/2021, 02/28/2020, Additional history exists DIABETES-FOOT EXAM 10/18/2023 10/17/2022, 0 10/07/2020, 08/12/2019, Additional history exists Depression Screening, Annual for Pts 12 and Over 10/18/2023 10/17/2022 TSH 10/18/2023 10/17/2022, 10/03, 11/26/2020, Additional history exists CKD HGB USE SMARTSET 26437 12/09/202312/08, 12/08/2022, 08/15/2022, Additional history exists DXA [...] this encounter Medical Devices Implanted Type Area Concrete Block Maker Device Identifier Shelf Expiration Date Model / Serial / Lot Lens 21.0 Mx60 - [id number] Implanted:Qty: 1 on 03/23/2016 by Jax Theodore MD at [facility] [employer] : SURGICAL 10/02/2018 MX60-21.0 / [id number] / [id number] Lens 21.5 Mx60 - [id number] - [id number] Implanted:Qty: 1 on 04/20/2016 by Jax Theodore MD at OR [facility] Right: Eye [employer] : SURGICAL 09/02/2018 MX60-21.5 / [id number] / [id number] documented as of this encounter Visit Diagnoses [...] and were consensually agreed upon. Care Teams Line Up Worker Relationship Specialty Start Date End Date Tania Orlando, DO [address] [place], [place] [phone] PCP - General Family Medicine 07/10/18 documented as of this encounter
--- OUTSIDE RECORDS SUMMARY | 2023-06-11 13:27 | External Medical Summary | Summary of Care ---
Author Name Unknown Organization [facility] Address [address] [place] [address] Phone [phone] Care Team Providers Care Full Stack Php Developer Name Role Phone Tania Orlando DO Primary Care Provider [phone] Reason for Referral * Evaluate & Treat - Unlimited Visits (Within 30 days (routine)) - Pending Review Specialty Diagnoses / Procedures Referred By Josef hooks Referred To Contact Cardiovascular Medicine Diagnoses Severe aortic stenosis Darrell Sparks DO [address] [place] [address] Referral ID Status Reason Start Date Expiration Date Visits Requested Visits Authorized [id number] Pending Review Specialty Services Required 12/19/[phone] Question Answer Referral Priority Within 30 days (routine) Comments Severe symptomatic aortic stenosis Reason for Visit * Reason Comments Follow Up Encounter Details Date Type Department Care Team Description 12/19/2022 Office Visit Cardiology, [facility] [address] [place] [address] Darrell Sparks DO [address] [place] [address] Severe aortic stenosis*; SSS (sick sinus syndrome) ([facility]); Cardiac pacemaker in situ; HTN, goal below 130/80; Dyslipidemia, goal LDL below 70 Allergies Active Allergy Reactions Severity Noted Date [...] mRNA, LNP-s, No Pre serve, 2-Dose Series ([employer]) 10/01/2021,05/05/2021,09/10/2020,08/03 Covid-19, Mrna, Lnp-s, Pf, B ivalent, [...] Never Smokeless Tobacco: Never Tobacco Cessation:Counseling Given: No Alcohol Use Standard Drinks/Week Comments No 0 [...] Sign Reading Time Taken Comments Blood Pressure 134/70 12/19/2022 10:12 AM EDT Pulse 64 12/19/2022 10:12 AM EDT Temperature - - Respiratory Rate 20 12/19/2022 10:12 AM EDT Oxygen Saturation - - Inhaled Oxygen Concentration - - Weight 86.3 kg (190 lb 3.2 oz) 12/19/2022 10:12 AM EDT Height - - Body Mass Index 33.69 12/08/2022 10:04 AM EDT documented in this encounter Progress Notes * Darrell Odombury, - 12/19/2022 10:24 AM EDT 12/19/2022 Cardiology Follow Up PCP: TANIA ORLANDO [place], [place] [phone] CHIEF COMPLAINT: Follow up, aortic valve stenosis, hypertension, sick sinus syndrome and syncope for which patient underwent implantation of a dual-chamber permanent pacemaker in January, SUBJECTIVE: Magdalena Payan is a 86 year old year old female who returns routine cardiology follow-up of the above concerns. In advance of today's visit she had undergone a transthoracic echocardiogram performed on 12/07/2022 with results as summarized below.She is accompanied by her daughter, Rain. Her most significant complaint is generalized fatigue with noted shortness of breath with exertion when she walked from the waiting room to the exam room. She is occasional brief chest discomfort episodes but none that are long-lasting. She is not had any recurrent syncopal episodes since her pacemaker was placed in 2019. She is had multiple orthopedic complaints including low back pain which at present his stable/improved. She cares for her ailing at home who has had recent issues with back pain as well as progressive cognitive impairment. 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 She is an upcoming PET scan scheduled in follow-up. Extensive ROS: All systems reviewed & are unremarkable except as noted in HPI & below Cardiovascular (chest pain/palpitations/fluttering/diaphoresis/dyspnea on exertion/paroxysmally nocturnal dyspnea):Negative and see above hpi Review of patient's allergies indicates: Allergen Reactions [...] No current facility-administered medications for this visit. OBJECTIVE/PHYSICAL EXAMINATION: BP 134/70 (BP Site: Left Arm, BP Position: Sitting, BP Cuff Size: Large) | Pulse 64 | Resp 20 | Wt 86.3 kg (190 lb 3.2 oz) | BMI 33.69 kg/m | BSA 1.96 m General: no acute distress and stated age Eyes: conjunctiva are pink and non-injected, sclera clear Neck: normal jugular venous pulse, no hepatojugular reflux Chest: normal shape and normal respiratory effort Lungs: clear to auscultation , no rales rhonchi or wheezing Cardiac Exam: - regular heart sounds, 2/6 SM Abdomen: abdomen soft, non-tender, no abnormal masses and no hepatosplenomegaly Musculoskeletal: no gait disturbance, no weakness Extremities: no edema and no cyanosis Neuro: grossly normal exam Psych: appropriate affect and insight. Data: Summary of transthoracic echocardiogram, images reviewed/interpreted independently by the undersigned at the time of today's visit: The left ventricular cavity size is normal. The LV wall thickness is moderately increased (concentric). The left ventricular wall motion is normal. The qualitative LV ejection fraction is 65-69% (normal). The aortic valve is moderately calcified. The aortic valve opening is severely reduced. Severe aortic valve stenosis is present, peak continues wave Doppler velocity 4.14 meters/second, mean gradient 43 mm Hg, CHANA =0.74, DI: 0.23 There is mild mitral annular calcification. The proximal ascending thoracic aorta is mildly enlarged, 4.2 cm. In comparison to prior study of November 08, 2021, aortic valve velocities increased reaching criteria for severe aortic stenosis Most recent remote interrogation of the patient's dual-chamber Medtronic permanent pacemaker took place on 11/28/2022: Predominant underlying rhythm was sinus rhythm. Atrial pacing 96% the time, right ventricular pacing 22% the time peer 0% atrial fibrillation burden. Generator longevity stable at 9.92 years . Normal device function. Latest Reference Range & Units 08/15/22 12:56 Triglycerides <=174 mg/dL 285 (H) Cholesterol <200 mg/dL 146 Non-HDL Cholesterol <=159 mg/dL 100 HDL Cholesterol >49 mg/dL 46 (L) LDL Cholesterol (Direct Measure) <=129 mg/dL 65 (H): Data is abnormally high (L): Data is abnormally low ASSESSMENT / PLAN: 86 year old year old female Severe, symptomatic aortic stenosis -echocardiogram reviewed independently with findings of aortic valve stenosis that has progressed. Is felt that she now has severe symptomatic aortic stenosis with peak continuous-wave Doppler velocity of over 4 meters/second, mean gradient of 43 millimeters Hg, calculated aortic valve area of 0.74centimeter squared, and dimensionless index of 0.23. -I discussed the pathophysiology in natural history of aortic stenosis with the patient and her daughter. -I recommend consultation with the comprehensive valve Clinic to discuss transcatheter aortic valvereplacement. Patient agreeable. SSS (sick sinus syndrome) / Cardiac pacemaker in situ -pacemaker functioning well. No recurrent syncopal episodes since pacemaker placed. HTN, goal below 130/80 -continue current treatment with lisinopril, hydrochlorothiazide, metoprolol, current doses. Dyslipidemia, goal LDL below 70 -continue atorvastatin 20 milligrams daily. DISPOSITION: Follow Up: Return in about 4 months (around 04/21/2023) for Clinic Visit. | For: Clinic Visit | Check-out note: Refer to valve clinic , ideally at [facility]. Darrell Sparks DO Cardiology, [address] [address] This chart was completed in part utilizing [employer] Speech Voice Recognition Software. Grammatical errors, random [...] documented in this encounter Nursing Notes * Sarah Ferreira RN - 12/19/2022 10:17 AM EDT Examination Room: 12 Name: Magdalena Payan Date of : (1935). Reason for Visit: Follow up Interim Hospitalization(s): No Problems/Concerns: Here for follow up from recent echo. Noting some increase in fatigue. Chest Pain/SOB: Denies [facility] Discussed: Not applicable [facility] a way you can [...] Oncolog y Nurse, Med [address] [place] [id number] 01/18/2023 Appointment Radiology 01/25/2023 Immunization/Injection Hematology Oncolog y Nurse, Med [address] [place] [address] 02/07/2023 Office Visit Hematology Oncology Rubin Rendon MD [address] [place] [address] 02/16/2023 Office Visit Family Medicine [facility]ania [facility] [address] [facility] [address] 04/28/2023 Office Visit Cardiology Rosa Tyler [facility]-C [address] [facility] [address] 07/13/2023 Cardiac Studies Cardiology Flex Field [facility] [address] [facility] [address] 10/23/2023 Nurse Only Ancillary Nurse [facility] [address] [facility] [address] Scheduled Procedures Name Priority Associated Diagnoses Date/Ti me ESOPHAGOGASTRODUODENOSCOPY ( EGD), FLEXIBLE, TRANSORAL, ENDOSCOPIC ULTRASOUND Recall Duodenal nodule Scheduled Referrals Name Type Priority Associated Diagnoses Orde r Schedule VALVE CLINIC REFERRAL OP Referral Within 30 days (routine) Severe aortic stenosis Ordered: 12/19/2022 Health Maintenance Due Date Last Done Comments DTaP,Tdap,and Td Vaccines (1 - Tdap) 1954 Influenza Vaccine (FLU shot) (#1) 2023 04/15/2022, 03/18/2021, 04/09/2020, Additional history exists GFR 06/10/2023 12/08/2022, 08/03, 04/15/2022, Additional history exists HbA1c 06/10/2023 12/08/2022, 04/05, 10/13/2021, Additional history exists DIABETES-EYE EXAM 10/04/2023 10/03/2022, 06/21/2019 Albumin/Creatinine Ratio 10/18/2023 10/17/2022, 04/05 CKD PHOS USE SMARTSET 64365 10/18/202310/03, 04/12/2021, 02/28/2020, Additional history exists DIABETES-FOOT EXAM 10/18/2023 10/17/2022, 0 10/07/2020, 08/12/2019, Additional history exists Depression Screening, Annual for Pts 12 and Over 10/18/2023 10/17/2022 TSH 10/18/2023 10/17/2022, 10/03, 11/26/2020, Additional history exists CKD HGB USE SMARTSET 33357 12/09/202312/08, 12/08/2022, 08/15/2022, Additional history exists DXA [...] this encounter Medical Devices Implanted Type Area Horticultural Farmworker Device Identifier Shelf Expiration Date Model / Serial / Lot Lens 21.0 Mx60 - [id number] Implanted:Qty: 1 on 03/23/2016 by Jax Theodore MD at OR [facility] [employer] : SURGICAL 10/02/2018 MX60-21.0 / [id number] / [id number] Lens 21.5 Mx60 - [id number] - [id number] Implanted:Qty: 1 on 04/20/2016 by Jax Theodore MD at OR [facility] Right: Eye [employer] : SURGICAL 09/02/2018 MX60-21.5 / [id number] / [id number] documented as of this encounter Visit Diagnoses Diagnosis Severe aortic stenosis- Primary Aortic valve disorders SSS (sick sinus syndrome) (HCC) Sinoatrial node dysfunction Cardiac pacemaker in situ HTN, goal below 130/80 Unspecified essential hypertension Dyslipidemia, goal LDL below 70 Other and unspecified hyperlipidemia documented in this encounter Advance Directives Latest [...] and were consensually agreed upon. Care Teams Full Stack Php Developer Relationship Specialty Start Date End Date Tania Orlando, [address] [place], [place] [phone] PCP - General Family Medicine 07/10/18 documented as of this encounter"
--- NOTE | 2023-06-11 13:31 | ED Triage Note ---
Date of Service June 11, 2023 Provider in Triage Author: Naseem Marroquin History of Present Illness This patient was briefly evaluated while in triage. An abbreviated physical exam was performed. This patient is a 87-year-old Female who presents to the ED for evaluation of not feeling well, including symptoms of increased urinary frequency, not feeling well and central abdominal pain. Symptoms started this morning. Patient denies any dysuria. Patient reports that she feels weak like she is going to pass out. Patient does report a history of recurrent UTIs. Patient denies any recent sick contacts. Physical Exam CONSTITUTIONAL: Healthy and well nourished. Patient does not appear toxic or in any acute distress. HEENT: No scleral icterus or conjunctival injection. RESPIRATORY: Clear to auscultation bilaterally with no wheezing, crackles, rhonchi or stridor. CARDIOVASCULAR: Regular rate and rhythm with no murmurs, rubs or gallops. GASTROINTESTINAL: Bowel sounds present in all quadrants. Patient has mild generalized abdominal tenderness to palpation. Negative CVA tenderness. INTEGUMENTARY: No rash or other significant dermatologic conditions noted. HEMATOLOGIC: No ecchymosis or petechiae. PSYCHIATRIC: Positive affect. NEUROLOGIC: No focal neurologic deficits noted. Initial orders for labs and / or imaging were placed and patient was placed in the waiting area until a bed is available. Please see further documentation for the full ED course.
[2023-06-11 13:54] LABS: Basophils # (auto) 0.02 K/uL (0.00-0.20); Basophils % (auto) 0.2 %; Eosinophils # (auto) 0.13 K/uL (0.00-0.50); Eosinophils % (auto) 1.1 %; Hematocrit (blood only) 35.6 % (37.0-47.0); Hemoglobin 11.2 g/dl (12.0-16.0); Immature Granulocytes # (auto) 0.05 K/uL (0.01-0.20); Immature Granulocytes % (auto) 0.4 %; Lymphocytes # (auto) 0.44 K/uL (1.20-3.40); Lymphocytes % (auto) 3.7 %; Mean Corpuscular Hgb Conc 31.5 g/dL (32.0-36.0); Mean Platelet Volume 10.1 fL (9.4-12.4); Monocytes # (auto) 0.63 K/uL (0.11-0.59); Monocytes % (auto) 5.2 %; Neutrophils # (auto) 10.74 K/uL (1.40-6.50); Neutrophils % (auto) 89.4 %; Platelet Count 121 K/uL (130-400); RDW Coefficient of Variation 13.9 % (11.5-14.5); RDW Standard Deviation 45.4 fL (36.4-46.3); White Blood Count 12.01 K/ul (4.8-10.8)
[2023-06-11 13:55] LABS: Appearance Urine Clear (Clear); Bilirubin Urine Negative (Negative); Blood Urine Negative (Negative); Color Urine Yellow; Glucose Urine UA Negative (Negative); Ketones Urine Negative (Negative); Leukocyte Esterase Urine Negative (Negative); Nitrite Urine Negative (Negative); Protein Urine Negative (Negative); Specific Gravity Urine 1.015 (1.000-1.030); Urobilinogen Urine Negative (Negative)
[2023-06-11 14:09] LABS: Alanine Aminotransferase 290 U/L (7-52); Albumin Globulin Ratio 1.4 (0.9-2); Albumin Level 4.1 gm/dl (3.4-5.0); Alkaline Phosphatase 154 U/L (34-104); Anion Gap 9 (3-11); Aspartate Aminotransferase 549 U/L (13-39); BUN Creatinine Ratio 26.8 (10-20); Blood Urea Nitrogen 38 mg/dl (6-23); Calcium 9.6 mg/dl (8.6-10.3); Carbon Dioxide 25 mmol/L (21-32); Chloride 103 mmol/L (98-107); Est GFR (African American) 38.9 ml/min; Est GFR (Non-African American) 33.6 ml/min; Globulin 2.9 gm/dl (2.5-4.0); Glucose 159 mg/dl (70-99(Fasting)); Lipase 25 U/L (11-82); Potassium 4.1 mmol/L (3.5-5.1); Sodium 137 mmol/L (136-145)
[2023-06-11 14:15] LABS: Troponin I High Sensitivity 15.5 pg/ml (0-14)
--- NOTE | 2023-06-11 14:32 | XRay Report ---
XR chest 1V portable CLINICAL HISTORY: Feeling ill. COMPARISON STUDY: Chest radiograph November 02, 2021. FINDINGS: A left subclavian pacer, prosthetic aortic valve and lumbar spine fusion hardware is incide ntally noted. No pneumothorax or pleural effusion is present. Cardiomegaly is unchanged. No evidence for pulmonary edema. There is no consolidation to suggest pneumonia. There has been no change in appe arance of the chest. IMPRESSION: No acute cardiopulmonary findings. No change in appearance of the chest. ACT 112: Negative or not required by law. Electronically signed by: Felix Santoro M.D. 06/11/2023 2:30 PM
[2023-06-11 14:33] LABS: Influenza A virus by PCR Negative (Neg); Influenza B virus by PCR Negative (Neg); RSV by PCR Negative (Neg); SARS CoV2 RNA(COVID-19) Ceph NEGATIVE (Negative)
[2023-06-11] MEDS ORDERED: OPTIRAY 320 500ml IV ONE (15:02)
--- NOTE | 2023-06-11 15:29 | CT Scan Report ---
CT OF THE ABDOMEN AND PELVIS WITH CONTRAST CLINICAL HISTORY: Periumbilical pain. COMPARISON STUDY: CT of the abdomen and pelvis August 25, 2009. MRI of the abdomen June 02, 2017. TECHNIQUE: Following IV administration of 89 mL of Optiray, axial images of the abdomen and pelvis we re obtained from the lung bases to the proximal femurs. Images were reviewed in the axial, sagittal, and coronal planes. IV contrast was administered without complication. Automated exposure control wa s utilized for the study. A dose lowering technique was utilized adhering to the principles of ALARA . CT DOSE: 1190.35 mGy.cm FINDINGS: Pacer leads, prosthetic aortic valve and moderate cardiomegaly are incidentally noted. No p neumatosis, free air or portal venous gas is present. There is a small calcified gallstone within the gallbladder. Gallbladder is contracted. There is subtle stranding adjacent to the gallbladder. In ad dition, there is subtle stranding along the falciform ligament and adjacent to the right hepatic lobe and right adrenal gland. No fluid collection is present. Mild biliary ductal dilatation has slightly increased since prior CT and MRI. Common bile duct measures 1.3 cm in caliber. Note is made of mildl y thickened enhancing wall of the common bile duct as well as the cystic duct and portions of the int rahepatic bile ducts. Spleen, adrenal glands and pancreas are unremarkable. No pancreatic ductal dila tation. 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 There is no hydronephr osis. There is mild bilateral renal cortical thinning. Several subcentimeter bilateral renal lesions are too small to characterize. The caliber and wall thickness of small and large bowel are normal. Th e appendix is normal. Colonic diverticulosis without evidence for acute diverticulitis. Evidence for pelvic floor relaxation. Images of the pelvis are degraded by streak artifact from a right hip arthro plasty. There is moderate atherosclerotic plaque within the abdominal aorta and branch vessels. There is no lymphadenopathy. There is no ascites. Postoperative findings within the spine are incidentally noted. IMPRESSION: 1. No bowel obstruction. No bowel wall thickening. Normal appendix. 2. Moderate dilatation of the common bile duct, slightly increased since prior CT and MRI. Findings c ould be correlated with obstructive liver function tests. Wall thickening and enhancement of the bili conrad tree. This is nonspecific however cholangitis is within the differential. Subtle stranding adjace nt to the liver/kim hepatis, as described above. Cholelithiasis. Contracted gallbladder. No evidenc e for acute cholecystitis. 3. Chronic diverticulosis. No evidence for acute diverticulitis. ACT 112: Negative or not required by law. Electronically signed by: Felix Santoro M.D. 06/11/2023 3:27 PM
[2023-06-11] MEDS ORDERED: PIPERACILLIN/TAZOBACTAM 4.5 GM/100 ML BAG IV ONE (16:01)
[2023-06-11] MEDS ORDERED: SODIUM CHLORIDE 0.9% 500 ML IV ONE (16:02)
[2023-06-11] MEDS ORDERED: ONDANSETRON INJ 2 MG/ML 2 ML VIAL IV STA (16:22)
--- NOTE | 2023-06-11 16:24 | Emergency Department Note ---
Impression & Plan Acute cholangitis, Vomiting ED Provider Note NAME: JANAE ALMAZAN AGE: 87 SEX: F : 1935 ARRIVES VIA: Walk-In INFORMANT: Patient, ED PROVIDER(S): Chaz Allen DO CHIEF COMPLAINT: Vomiting HPI: The patient is an 87-year-old female who presented to the emergency department with her daughter for an evaluation of nausea vomiting. She also had chills. The patient has never had similar symptoms in the past. She recently had aortic valve replacement at [facility]. She also has a history of pancreatic cancer. She notices no pain at this time. She denies having any chest pain or difficulty breathing. She still has her gallbladder. ROS: See above HPI for pertinent positives & negatives. A total of 10 systems reviewed and were otherwise negative. PAST MEDICAL HISTORY: See Below PAST SURGICAL HISTORY: See Below FAMILY HISTORY: See Below SOCIAL HISTORY: See Below HOME MEDICATIONS: See Below ALLERGIES: See Below VITALS: See Below PHYSICAL EXAMINATION: GENERAL: Patient is awake alert in no acute distress patient is resting comfortably and showing no signs of anxiety EYES: The conjunctivae are clear. The pupils are round and reactive. EARS, NOSE, MOUTH AND THROAT: The nose is without any evidence of any deformity. Mucous membranes are moist. Tongue is midline. NECK: The neck is nontender and supple. RESPIRATORY: Normal respiratory effort is noted there is no evidence of wheezing rhonchi or rales CARDIOVASCULAR: Regular rate and rhythm noted there no murmurs rubs or gallops normal S1 normal S2. GASTROINTESTINAL: The abdomen is soft. Abdomen is nontender. MUSCULOSKELETAL/EXTREMITIES: There is no evidence of gross deformity full range of motion is noted in the hips and shoulders. SKIN: There is no obvious evidence of any rash. Trace pedal edema was noted bilaterally. NEUROLOGIC: Patient is awake alert and oriented x3 MEDICAL DECISION MAKING: The patient is an 87-year-old female who presented to the emergency department for an evaluation of nausea vomiting. The patient did report some epigastric pain but it was very mild. On my evaluation the patient did not have a surgical abdomen. Laboratory and radiographic studies appear to be consistent with biliary pathology. She has a history of a pancreatic mass. The patient also had a recent replacement of her aortic valve. The patient was treated with IV fluids and IV antiemetics. She was also treated with IV antibiotics for presumed cholangitis. I discussed her condition with the GI doctor at our facility. They recommended we discussed the case with the tertiary center given the patient's findings. The patient was felt to be a good candidate for management at our facility until she can have an ERCP. I did discuss this plan with the [facility] group. They have agreed to evaluate the patient in the emergency department for further management and disposition. Triage Nursing notes reviewed. Prior medical records reviewed Vital Signs: reviewed and remarkable for elevated blood pressure. Differential diagnosis: Gastroenteritis, food borne illness, infections, appendicitis, diverticulitis, inflammatory bowel disease, obstruction, GI bleed, biliary pathology, volvulus, as well as other pathologies. ER treatment provided: See below Diagnostics interpreted by me: ECG: Atrial paced rhythm at 77 bpm. First-degree AV block is noted. There is no acute ST segment abnormalities noted. This was compared to a tracing from January 08, 2020. Sinus rhythm has been replaced with paced rhythm. Cardiac Monitoring: An order was placed for continuous cardiac monitoring. The monitor shows a rate of 62 bpm with sinus rhythm. Paced rhythm. Laboratory studies: As stated above and show below. Imaging studies: See below. Radiographic imaging was reviewed by myself Consultation(s): I discussed this case with Dr. Morrison who is on for GI. He does recommend that we transfer the patient to a tertiary center given the findings of cholangitis. I discussed this case with Dr. Briones who is the triage physician at [facility]. I discussed this case with Sybil who is on-call for the [facility] ED COURSE: Procedures: none Critical Care: I have personally spent greater than 45 minutes of critical care time in the direct management of this patient. This includes bedside care, interpretation of diagnostic studies, and testing, discussion with consultants, patient, and family members, and other required patient management activities. This 45 minutes is in excess of all separately billable procedures. Past Med/Surg History Medical History (Updated 06/11/23 @ 21:19 by Chaz Allen DO) Iron deficiency anemia following with [facility] Encounter for pre-operative examination Primary neuroendocrine carcinoma of duodenum following with [facility] Primary pancreatic neuroendocrine tumor following with [facility] Aortic stenosis mild to moderate CKD (chronic kidney disease) stage 3, GFR 30-59 ml/min Cr 1.3-1.7 over past 7 months Type 2 diabetes mellitus NIDDM Hypothyroidism Hyperlipidemia Hypertension controlled, stable per pt History of bleeding ulcers >3.5 YRS AGO Myocardial Infarction silent CO per pt, denies when first detected Pacemaker d/t bradycardia/syncope, [employer], follows with [facility] History of COVID-05/24- FATIGUE, no other symptoms, no hospitalization Sensorineural hearing loss (SNHL) of both ears Surgical History S/P colonoscopy Hx of esophagogastroduodenoscopy Previous back surgery >11 YEARS AGO- [facility]: pt states upon induction felt "unusual" (unable to further describe) and woke up with maintenance foreman and anesthesiologist checking on her-suspects was bradycardia prior to pacemaker placement; reports no additional issues/episodes; no available records History of cardiac cath >10 YRS AGO- [facility]- DOES NOT REMEMBER WHY- NO STENT History of knee replacement BILAT Family History Other Allergies No family history of bleeding disorder Denies family history of Hearing loss Heart disease Cancer Hypertension Stroke Asthma Social History Smoking Status: Never smoker Second Hand Exposure: No; Do You Dip or Chew Tobacco: No; Hx Alcohol Use: No Hx Substance Use: No Preferred Language: Hebrew Communication Ability: Effective Control Operator Required: No Beliefs That Will Affect Care: None marital status: Current Living Situation: Spouse current occupational status: retired How many Children do You have: 4 Feels Safe at Home: Yes Safety Concerns: Feels Safe At This Time Assistive Devices: Cane Allergies Allergies Allergy/AdvReac Type Severity Reaction Status Date / Time bee venom protein (honey bee) Allergy Intermediate SWELLING Verified 06/11/23 19:30 Sulfa (Sulfonamide Allergy Intermediate RASH Verified 06/11/23 19:30 Antibiotics) Home Meds Home Medications Medication Instructions Recorded Confirmed ascorbic acid (vitamin C) 500 mg 500 mg PO QAM 12/16/20 06/11/23 tablet (Vitamin C) atorvastatin 20 mg tablet 20 mg PO QAM 12/16/20 06/11/23 levothyroxine 100 mcg tablet 100 mcg PO QAM 12/16/20 06/11/23 lisinopril 40 mg tablet 40 mg PO QAM 12/16/20 06/11/23 metoprolol tartrate 25 mg tablet 25 mg PO BID 12/16/20 06/11/23 multivitamin 1 tab PO QAM 12/16/20 06/11/23 omeprazole 40 mg capsule,delayed 40 mg PO QAM 12/16/20 06/11/23 release octreotide acetate 50 mcg/mL 50 mcg subcut UD 10/29/21 06/11/23 injection solution (Sandostatin) acetaminophen 500 mg capsule 1,000 mg PO TID PRN Pain 06/11/23 06/11/23 aspirin 81 mg tablet,delayed 81 mg PO DAILY 06/11/23 06/11/23 release (Fransisca Low Dose Aspirin) cholecalciferol (vitamin D3) 10 400 mcg PO DAILY 06/11/23 06/11/23 mcg (400 unit) tablet (Vitamin D3) furosemide 20 mg tablet 20 mg PO DAILY 06/11/23 06/11/23 hydrocodone 5 mg-acetaminophen 325 1 tab PO Q6H PRN moderate-severe 06/11/23 06/11/23 mg tablet pain Results & Data (ED) Vital Signs Vital Signs - 24 hr 06/11/23 13:30 06/11/23 16:52 06/11/23 18:50 Temperature 36.8 C Temperature Source Temporal Artery Scan Pulse Rate 73 64 Pulse Rate [Apical] 63 Pulse Rhythm Pulse Rhythm [Apical] Regular Pulse Strength [Apical] Normal Respiratory Rate 18 18 Respiratory Effort / Characteristics Non-Labored Spontaneous Non-Labored Spontaneous Respiratory Depth Normal Normal Respiratory Pattern Regular Blood Pressure 149/80 H Blood Pressure [Left Arm] 122/83 Blood Pressure Mean 103 Blood Pressure Mean [Left Arm] 96 Blood Pressure Position Sitting Pulse Oximetry 95 94 Oxygen Delivery Method Room Air Room Air Sepsis Recent Fever Within 48 Hours No Sepsis New/Unexplained Change in Mental Status No Sepsis Action Taken by Nursing No Action Required 06/11/23 18:51 Temperature Temperature Source Pulse Rate 63 Pulse Rate [Apical] Pulse Rhythm Regular Pulse Rhythm [Apical] Pulse Strength [Apical] Respiratory Rate 18 Respiratory Effort / Characteristics Respiratory Depth Respiratory Pattern Blood Pressure Blood Pressure [Left Arm] Blood Pressure Mean Blood Pressure Mean [Left Arm] Blood Pressure Position Pulse Oximetry 94 Oxygen Delivery Method Room Air Sepsis Recent Fever Within 48 Hours Sepsis New/Unexplained Change in Mental Status Sepsis Action Taken by Assisted Medications Current Medication List: was personally reviewed by me Laboratory Data Attestation: I reviewed the patient's lab results. 06/11/23 13:33 06/11/23 13:33 Lab Results 06/11/23 06/11/23 Range/Units 13:33 13:34 WBC 12.01 H (4.8-10.8) K/ul RBC 4.00 L (4.20-5.40) M/uL Hgb 11.2 L (12.0-16.0) g/dl Hct 35.6 L (37.0-47.0) % MCV 89.0 (80.0-100.0) fL MCH 28.0 (25.0-34.0) pg MCHC 31.5 L (32.0-36.0) g/dL RDW Std Deviation 45.4 (36.4-46.3) fL RDW Coeff of Allan 13.9 (11.5-14.5) % Plt Count 121 L (130-400) K/uL MPV 10.1 (9.4-12.4) fL Immature Gran % (Auto) 0.4 % Neut % (Auto) 89.4 % Lymph % (Auto) 3.7 % Divide % (Auto) 5.2 % Eos % (Auto) 1.1 % Baso % (Auto) 0.2 % Neut # (Auto) 10.74 H (1.40-6.50) K/uL Lymph # (Auto) 0.44 L (1.20-3.40) K/uL Divide # (Auto) 0.63 H (0.11-0.59) K/uL Eos # (Auto) 0.13 (0.00-0.50) K/uL Baso # (Auto) 0.02 (0.00-0.20) K/uL Immature Gran # (Auto) 0.05 (0.01-0.20) K/uL Sodium 137 (136-145) mmol/L Potassium 4.1 (3.5-5.1) mmol/L Chloride 103 (98-107) mmol/L Carbon Dioxide 25 (21-32) mmol/L Anion Gap 9 (3-11) BUN 38 H (6-23) mg/dl Creatinine 1.42 H (0.6-1.2) mg/dl Est Cr Clr Drug Dosing Not Reportable Est GFR ( Amer) 38.9 ml/min Est GFR (Non-Af Amer) 33.6 ml/min BUN/Creatinine Ratio 26.8 H (10-20) Glucose 159 H (70-99(Fasting)) mg/dl Calcium 9.6 (8.6-10.3) mg/dl Total Bilirubin 2.0 H (0.2-1.0) mg/dl Direct Bilirubin 1.1 H (0-0.2) mg/dl AST 549 H (13-39) U/L ALT 290 H (7-52) U/L Alkaline Phosphatase 154 H (34-104) U/L Troponin I High Sens 15.5 H (0-14) pg/ml Total Protein 7.0 (6.0-8.3) gm/dl Albumin 4.1 (3.4-5.0) gm/dl Globulin 2.9 (2.5-4.0) gm/dl Albumin/Globulin Ratio 1.4 (0.9-2) Lipase 25 (11-82) U/L Urine Color Yellow Urine Appearance Clear (Clear) Urine pH 6.0 (4.5-7.5) Ur Specific Sherman 1.015 (1.000-1.030) Urine Protein Negative (Negative) Urine Glucose (UA) Negative (Negative) Urine Ketones Negative (Negative) Urine Blood Negative (Negative) Urine Nitrite Negative (Negative) Urine Bilirubin Negative (Negative) Urine Urobilinogen Negative (Negative) Ur Leukocyte Esterase Negative (Negative) SARS-CoV-2 (PCR) NEGATIVE (Negative) Influenza Type A (PCR) Negative (Neg) Influenza Type B (PCR) Negative (Neg) RSV (RT-PCR) Negative (Neg) Administered Medications Discontinued Medications Piperacillin Sod/Tazobactam Sod (Zosyn) 4.5 gm in 100 mls @ 200 mls/hr IV NOW ONE Stop: 06/11/23 16:30 Last Infusion: 06/11/23 17:54 Dose: Infused Documented By: Admin: 06/11/23 16:49 Dose: 200 mls/hr Documented By: JAUN Sodium Chloride (Nss) 500 mls @ 999 mls/hr IV .Q31M ONE Stop: 06/11/23 16:32 Last Infusion: 06/11/23 17:54 Dose: Infused Documented By: Admin: 06/11/23 16:46 Dose: 999 mls/hr Documented By: JAUN Ioversol (Optiray 320 500ml) 89 ml IV ONCE ONE Stop: 06/11/23 15:03 Last Admin: 06/11/23 15:02 Dose: 89 ml Documented By: NAMITA Ondansetron HCl (Ondansetron Inj 2 Mg/Ml 2 Ml Vial) 4 mg IV NOW STA Stop: 06/11/23 16:23 Last Admin: 06/11/23 16:47 Dose: 4 mg Documented By: JAUN Imaging Data Attestation: I personally reviewed and interpreted this imaging study as follows: My Impression: 1 view chest x-ray was obtained in the emergency department. My interpretation is no free air or definite infiltrate, final report below.. CT of the abdomen pelvis was obtained. My interpretation is no free air or signs of bowel obstruction, final report below. Radiologist's Impression: Chest X-Ray 06/11/23 13:31 XR chest 1V portable CLINICAL HISTORY: Feeling ill. COMPARISON STUDY: Chest radiograph November 02, 2021. FINDINGS: A left subclavian pacer, prosthetic aortic valve and lumbar spine fusion hardware is incidentally noted. No pneumothorax or pleural effusion is present. Cardiomegaly is unchanged. No evidence for pulmonary edema. There is no consolidation to suggest pneumonia. There has been no change in appearance of the chest. IMPRESSION: No acute cardiopulmonary findings. No change in appearance of the chest. ACT 112: Negative or not required by law. Electronically signed by: Felix Santoro M.D. 06/11/2023 2:30 PM Abdomen/Pelvis CT 06/11/23 13:32 CT OF THE ABDOMEN AND PELVIS WITH CONTRAST CLINICAL HISTORY: Periumbilical pain. COMPARISON STUDY: CT of the abdomen and pelvis August 25, 2009. MRI of the abdomen June 02, 2017. TECHNIQUE: Following IV administration of 89 mL of Optiray, axial images of the abdomen and pelvis were obtained from the lung bases to the proximal femurs. Images were reviewed in the axial, sagittal, and coronal planes. IV contrast was administered without complication. Automated exposure control was utilized for the study. A dose lowering technique was utilized adhering to the principles of ALARA. CT DOSE: 1190.35 mGy.cm FINDINGS: Pacer leads, prosthetic aortic valve and moderate cardiomegaly are incidentally noted. No pneumatosis, free air or portal venous gas is present. There is a small calcified gallstone within the gallbladder. Gallbladder is contracted. There is subtle stranding adjacent to the gallbladder. In addition, there is subtle stranding along the falciform ligament and adjacent to the right hepatic lobe and right adrenal gland. No fluid collection is present. Mild biliary ductal dilatation has slightly increased since prior CT and MRI. Common bile duct measures 1.3 cm in caliber. Note is made of mildly thickened enhancing wall of the common bile duct as well as the cystic duct and portions of the intrahepatic bile ducts. Spleen, adrenal glands and pancreas are unremarkable. No pancreatic ductal dilatation. 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 There is no hydronephrosis. There is mild bilateral renal cortical thinning. Several subcentimeter bilateral renal lesions are too small to characterize. The caliber and wall thickness of small and large bowel are normal. The appendix is normal. Colonic diverticulosis without evidence for acute diverticulitis. Evidence for pelvic floor relaxation. Images of the pelvis are degraded by streak artifact from a right hip arthroplasty. There is moderate atherosclerotic plaque within the abdominal aorta and branch vessels. There is no lymphadenopathy. There is no ascites. Postoperative findings within the spine are incidentally noted. IMPRESSION: 1. No bowel obstruction. No bowel wall thickening. Normal appendix. 2. Moderate dilatation of the common bile duct, slightly increased since prior CT and MRI. Findings could be correlated with obstructive liver function tests. Wall thickening and enhancement of the biliary tree. This is nonspecific however cholangitis is within the differential. Subtle stranding adjacent to the liver/kim hepatis, as described above. Cholelithiasis. Contracted gallbladder. No evidence for acute cholecystitis. 3. Chronic diverticulosis. No evidence for acute diverticulitis. ACT 112: Negative or not required by law. Electronically signed by: Felix Santoro M.D. 06/11/2023 3:27 PM Discharge Plan Visit Data Chief Complaint: Urinary Symptoms Stated Complaint: DIARRHEA, ABDOMINAL PAIN, INCREASED URINATION ED Provider: Chaz Allen Discharge Problem: Acute cholangitis, Vomiting Patient Disposition: Admitted As Inpatient Discharge Instructions Interventions: ED Discharge Assessment Last Done: 06/11/23 20:43 Discharge Problem: Vomiting Qualifiers: Vomiting type: unspecified Nausea presence: with nausea Qualified Code(s): R 11.2 - Nausea with vomiting, unspecified
[2023-06-11 16:50] LABS: Bilirubin Direct 1.1 mg/dl (0-0.2)
--- NOTE | 2023-06-11 18:09 | History & Physical Report ---
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 In ER afebrile, vital stable. WBC: 12. T. bili: 1.1, AST: 549 (was 25 and 12/25), ALT: 290 (was 16 on 12/25), alk phos: 154 (82 in 12/25). CT abdomen pelvis: 1. No bowel obstruction. No bowel wall thickening. Normal appendix. 2. Moderate dilatation of the common bile duct, slightly increased since prior CT and MRI. Findings could be correlated with obstructive liver function tests. Wall thickening and enhancement of the biliary tree. This is nonspecific however cholangitis is within the differential. Subtle stranding adjacent to the liver/kim hepatis, as described above. Cholelithiasis. Contracted gallbladder. No evidence for acute cholecystitis. 3. Chronic diverticulosis. No evidence for acute diverticulitis. No recurrent chills or nausea or abdominal pain. Patient currently asymptomatic In ER given IVF, Zosyn, Zofran ER physician contacted on-call GI here who was unable to perform ERCP and recommended transfer. ER physician called [facility] [facility] for potential transfer for ERCP. Per epic notes [facility] stated that since patient is not septic and critically ill an emergent ERCP would not be completed tonight and recommended patient can get ERCP here tomorrow. If ERCP is not possible at this facility or patient decompensates to call back for consideration of transfer. Blood cultures (obtained after initial IV antibiotics given) NPO IVF Zosyn IV Tylenol, IV morphine prn pain Monitor closely. If patient recurrent severe pain or clinically worsening plan to transfer for consideration emergent ERCP GI consult CBC, CMP, lipase in a.m. (4) Elevated troponin: Plan: Minimally elevated troponin at 15. Doubt ACS Denies chest pain, shortness of breath EKG Q waves anterior leads and T wave changes inferior leads, these were compared to EKG in 2021 and appears similar per my interpretation Will repeat troponin and EKG in a.m. 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 Baseline 1.3-1.5 Monitor renal functions, avoid nephrotoxic agents when possible (9) HTN (hypertension): Plan: Stable Hold lisinopril, Lasix while n.p.o. Convert home oral metoprolol tartrate to IV for now (10) Type 2 diabetes mellitus: Plan: A1c: 7.1 on 04/20/2023 Currently diet controlled Monitor BSG's NovoLog sliding scale correction only at this time while n.p.o. (11) Hyperlipidemia: Plan: Hold atorvastatin while n.p.o. (12) Aortic stenosis: Plan: S/P TAVR in 04/2023 at [facility] [place] [facility] (13) Hypothyroidism: Plan: Hold oral levothyroxine at this time while npo, resume when able (14) Iron deficiency anemia: Plan: Hgb: 11. Baseline 11-12 Monitor H&H (15) GERD (gastroesophageal reflux disease): Plan: Convert oral PPI to IV while npo DVT Prophylaxis SCDs for now Full Code as per discussion with pt Follows with Dr Chelsey Mitchell for routine care Pt was seen and care coordinated with Dr Mata. 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 History obtained from patient, patient's daughter as well as outpatient chart review. Patient states this morning had coffee and toast and was feeling fine. She reports later in the morning had sudden onset shaking chills, nausea and cramps to mid abdomen. Reports cramps and nausea lasted approximately 30 to 60 minutes. Did not take temperature. No further chills. Denies vomiting. Has not had any recurrent episodes of nausea or abdominal pain. Pain resolved spontaneously. Had normal formed brown BM this morning. Staets approximately one month ago had episode of mid abdominal discomfort that also resolved spontaneously. SOB with walking up couple flights of stairs is at her baseline. Denies diaphoresis, N/V/D/C, GONZALES, dizziness, syncope, vision changes, neck pain, CP, palpitations, cough, sore throat, rhinorrhea, paresthesias, weakness, increased extremity edema, rashes, urinary symptoms. Outpatient record review: 01/18/2023: PET scan: Lymph node posterior to pancreatic head measures 7 mm in diameter. Lymph node anterior to pancreatic head measures 1.2 cm 08/06/2019: EUS: Pancreatic neck lesion measuring 12 mm x 6 mm Allergies Allergy/AdvReac Type Severity Reaction Status Date / Time bee venom protein (honey bee) Allergy Intermediate SWELLING Verified 06/11/23 19:30 Sulfa (Sulfonamide Allergy Intermediate RASH Verified 06/11/23 19:30 Antibiotics) Home Medications Medication Instructions Recorded Confirmed Type ascorbic acid (vitamin C) 500 mg 500 mg PO QAM 12/16/20 06/11/23 History tablet (Vitamin C) atorvastatin 20 mg tablet 20 mg PO QAM 12/16/20 06/11/23 History levothyroxine 100 mcg tablet 100 mcg PO QAM 12/16/20 06/11/23 History lisinopril 40 mg tablet 40 mg PO QAM 12/16/20 06/11/23 History metoprolol tartrate 25 mg tablet 25 mg PO BID 12/16/20 06/11/23 History multivitamin 1 tab PO QAM 12/16/20 06/11/23 History omeprazole 40 mg capsule,delayed 40 mg PO QAM 12/16/20 06/11/23 History release octreotide acetate 50 mcg/mL 50 mcg subcut UD 10/29/21 06/11/23 History injection solution (Sandostatin) acetaminophen 500 mg capsule 1,000 mg PO TID PRN Pain 06/11/23 06/11/23 History aspirin 81 mg tablet,delayed 81 mg PO DAILY 06/11/23 06/11/23 History release (Fransisca Low Dose Aspirin) cholecalciferol (vitamin D3) 10 400 mcg PO DAILY 06/11/23 06/11/23 History mcg (400 unit) tablet (Vitamin D3) furosemide 20 mg tablet 20 mg PO DAILY 06/11/23 06/11/23 History hydrocodone 5 mg-acetaminophen 325 1 tab PO Q6H PRN moderate-severe 06/11/23 06/11/23 History mg tablet pain Past Med/Surg History Medical History Iron deficiency anemia following [facility] Encounter for pre-operative examination Primary neuroendocrine carcinoma of duodenum following with [facility] Primary pancreatic neuroendocrine tumor following with [facility]c Aortic stenosis mild to moderate CKD (chronic kidney disease) stage 3, GFR 30-59 ml/min Cr 1.3-1.7 over past 7 months Type 2 diabetes mellitus NIDDM Hypothyroidism Hyperlipidemia Hypertension controlled, stable per pt History of bleeding ulcers >3.5 YRS AGO Myocardial Infarction silent [place] per pt, denies when first detected Pacemaker d/t bradycardia/syncope, Medtronic, follows with [facility] cardio History of COVID-19 05/24- FATIGUE, no other symptoms, no hospitalization Sensorineural hearing loss (SNHL) of both ears Surgical History S/P colonoscopy Hx of esophagogastroduodenoscopy Previous back surgery >11 YEARS AGO- [facility]: pt states upon induction felt "unusual" (unable to further describe) and woke up with manager of pmo and anesthesiologist checking on her-suspects was bradycardia prior to pacemaker placement; reports no additional issues/episodes; no available records History of cardiac cath >10 YRS AGO- [facility]- DOES NOT REMEMBER WHY- NO STENT History of knee replacement BILAT Family History Other Allergies No family history of bleeding disorder Denies family history of Hearing loss Heart disease Cancer Hypertension Stroke Asthma Social History Smoking Status: Never smoker Second Hand Exposure: No; Do You Dip or Chew Tobacco: No; Hx Alcohol Use: No Hx Substance Use: No Preferred Language: Cambodian Communication Ability: Effective Emergency Management System Director Required: No Beliefs That Will Affect Care: None marital status: Current Living Situation: Spouse current occupational status: retired How many Children do You have: 4 Feels Safe at Home: Yes Assistive Devices: Cane and Glasses Review of Systems Review of Systems: All systems reviewed & are unremarkable except as noted in HPI & below Physical Exam Physical Exam: General: no distress, overweight, pleasant elderly female Head: normocephalic, atraumatic Eyes: conjunctiva non-injected, anicteric ENT: normal inspection external ears, nose, mucous membranes moist Neck: supple, trachea midline Lungs: clear, no respiratory distress, no wheezing/rhonchi/rales CV: RRR, no murmur, no pretibial edema Abd: protuberant, normal BS, soft, non-tender to palpation Ext: no cyanosis, no calf tenderness Neuro: A&O x 3, no focal deficits noted, normal affect Skin: warm, dry Results & Data Results & Data Vital Signs (Past 12 Hours) Vital Signs Temp Pulse Resp BP Pulse Ox O2 Del Method 06/11/23 16:52 64 06/11/23 13:30 36.8 C 73 18 149/80 H 95 Room Air Laboratory Results Short CBC 06/11/23 Range/Units 13:33 WBC 12.01 H (4.8-10.8) K/ul Hgb 11.2 L (12.0-16.0) g/dl Hct 35.6 L (37.0-47.0) % Plt Count 121 L (130-400) K/uL BMP 06/11/23 13:33 Sodium 137 Potassium 4.1 Chloride 103 Carbon Dioxide 25 BUN 38 H Creatinine 1.42 H Glucose 159 H Calcium 9.6 Liver Function 06/11/23 Range/Units 13:33 Total Bilirubin 2.0 H (0.2-1.0) mg/dl Direct Bilirubin 1.1 H (0-0.2) mg/dl AST 549 H (13-39) U/L ALT 290 H (7-52) U/L Alkaline Phosphatase 154 H (34-104) U/L Albumin 4.1 (3.4-5.0) gm/dl Urine 06/11/23 Range/Units 13:33 Urine Color Yellow Urine Appearance Clear (Clear) Urine pH 6.0 (4.5-7.5) Ur Specific [place] 1.015 (1.000-1.030) Urine Protein Negative (Negative) Urine Glucose (UA) Negative (Negative) Diagnostic Findings Chest X-Ray 06/11/23 13:31 XR chest 1V portable CLINICAL HISTORY: Feeling ill. COMPARISON STUDY: Chest radiograph November 02, 2021. FINDINGS: A left subclavian pacer, prosthetic aortic valve and lumbar spine fusion hardware is incidentally noted. No pneumothorax or pleural effusion is present. Cardiomegaly is unchanged. No evidence for pulmonary edema. There is no consolidation to suggest pneumonia. There has been no change in appearance of the chest. IMPRESSION: No acute cardiopulmonary findings. No change in appearance of the chest. ACT 112: Negative or not required by law. Electronically signed by: Felix Santoro M.D. 06/11/2023 2:30 PM Abdomen/Pelvis CT 06/11/23 13:32 CT OF THE ABDOMEN AND PELVIS WITH CONTRAST CLINICAL HISTORY: Periumbilical pain. COMPARISON STUDY: CT of the abdomen and pelvis August 25, 2009. MRI of the abdomen June 02, 2017. TECHNIQUE: Following IV administration of 89 mL of Optiray, axial images of the abdomen and pelvis were obtained from the lung bases to the proximal femurs. Images were reviewed in the axial, sagittal, and coronal planes. IV contrast was administered without complication. Automated exposure control was utilized for the study. A dose lowering technique was utilized adhering to the principles of ALARA. CT DOSE: 1190.35 mGy.cm FINDINGS: Pacer leads, prosthetic aortic valve and moderate cardiomegaly are incidentally noted. No pneumatosis, free air or portal venous gas is present. There is a small calcified gallstone within the gallbladder. Gallbladder is contracted. There is subtle stranding adjacent to the gallbladder. In addition, there is subtle stranding along the falciform ligament and adjacent to the right hepatic lobe and right adrenal gland. No fluid collection is present. Mild biliary ductal dilatation has slightly increased since prior CT and MRI. Common bile duct measures 1.3 cm in caliber. Note is made of mildly thickened enhancing wall of the common bile duct as well as the cystic duct and portions of the intrahepatic bile ducts. Spleen, adrenal glands and pancreas are unremarkable. No pancreatic ductal dilatation. 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 There is no hydronephrosis. There is mild bilateral renal cortical thinning. Several subcentimeter bilateral renal lesions are too small to characterize. The caliber and wall thickness of small and large bowel are normal. The appendix is normal. Colonic diverticulosis without evidence for acute diverticulitis. Evidence for pelvic floor relaxation. Images of the pelvis are degraded by streak artifact from a right hip arthroplasty. There is moderate atherosclerotic plaque within the abdominal aorta and branch vessels. There is no lymphadenopathy. There is no ascites. Postoperative findings within the spine are incidentally noted. IMPRESSION: 1. No bowel obstruction. No bowel wall thickening. Normal appendix. 2. Moderate dilatation of the common bile duct, slightly increased since prior CT and MRI. Findings could be correlated with obstructive liver function tests. Wall thickening and enhancement of the biliary tree. This is nonspecific however cholangitis is within the differential. Subtle stranding adjacent to the liver/kim hepatis, as described above. Cholelithiasis. Contracted gallbladder. No evidence for acute cholecystitis. 3. Chronic diverticulosis. No evidence for acute diverticulitis. ACT 112: Negative or not required by law. Electronically signed by: Felix Santoro M.D. 06/11/2023 3:27 PM Supervising Physician Co-Signing Physician Notes Pt seen and examined by myself, Janiya Mata MD on the day of service. Care was coordinated with Lola Salamanca PA-C. 87yo presenting with abdominal pain, concern for acute cholangitis, requiring ERCP. Pt admitted for ERCP to be done the next day, currently stable. GI Consult, IV abx. Transfer for urgent need. Otherwise as above.
[2023-06-11] MEDS ORDERED: CARBOHYDRATES FOR HYPOGLYCEMIA PO PRN (20:42)
[2023-06-11] MEDS ORDERED: ONDANSETRON INJ 2 MG/ML 2 ML VIAL IV PRN (20:42)
[2023-06-11] MEDS ORDERED: GLUCAGON FOR INJ 1 MG VIAL SQ PRN (20:42)
[2023-06-11] MEDS ORDERED: GLUCOSE 10 TAB/TUBE PO PRN (20:42)
[2023-06-11] MEDS ORDERED: MoRPHine SULFATE 2 MG/ML CARP IV PRN (20:42)
[2023-06-11] MEDS ORDERED: GLUCOSE 40% GEL 15 GM TUBE PO PRN (20:42)
[2023-06-11] MEDS ORDERED: DEXTROSE 50% 50 ML SYRINGE IV PRN (20:42)
[2023-06-11] MEDS: SODIUM CHLORIDE 0.9% 1,000 ML IV SCH (22:23)
[2023-06-11] MEDS: ACETAMINOPHEN 1,000 MG/100 ML VIAL IV PRN (22:26)
[2023-06-11] MEDS: INSULIN ASPART PER UNIT CHARGE SC SCH (22:35)
[2023-06-11] MEDS ORDERED: METOPROLOL TARTRATE 25 MG TAB PO STA (22:37)
[2023-06-11] MEDS: PIPERACILLIN/TAZOBACTAM 4.5 GM in DEXTROSE 5% MINI-B 100 ML IV SCH (22:44)
[2023-06-12] MEDS: METOPROLOL TARTRATE 1 MG/ML VIAL IV SCH ×3 (00:17→12:17)
[2023-06-12] MEDS ORDERED: hydrALAZINE HCL 20 MG/ML VIAL IV STA (00:20)
[2023-06-12 06:40] LABS: Basophils # (auto) 0.02 K/uL (0.00-0.20); Basophils % (auto) 0.2 %; Eosinophils % (auto) 1.2 %; Hematocrit (blood only) 32.1 % (37.0-47.0); Hemoglobin 10.2 g/dl (12.0-16.0); Immature Granulocytes # (auto) 0.04 K/uL (0.01-0.20); Immature Granulocytes % (auto) 0.5 %; Lymphocytes # (auto) 0.63 K/uL (1.20-3.40); Lymphocytes % (auto) 7.8 %; Mean Corpuscular Hemoglobin 28.2 pg (25.0-34.0); Mean Corpuscular Hgb Conc 31.8 g/dL (32.0-36.0); Mean Corpuscular Volume 88.7 fL (80.0-100.0); Mean Platelet Volume 10.4 fL (9.4-12.4); Monocytes # (auto) 0.64 K/uL (0.11-0.59); Monocytes % (auto) 7.9 %; Neutrophils # (auto) 6.66 K/uL (1.40-6.50); Neutrophils % (auto) 82.4 %; Platelet Count 105 K/uL (130-400); RDW Coefficient of Variation 14.2 % (11.5-14.5); RDW Standard Deviation 45.9 fL (36.4-46.3); Red Blood Count 3.62 M/uL (4.20-5.40); White Blood Count 8.09 K/ul (4.8-10.8)
[2023-06-12 07:06] LABS: Albumin Globulin Ratio 1.3 (0.9-2); Albumin Level 3.4 gm/dl (3.4-5.0); BUN Creatinine Ratio 21.9 (10-20); Bilirubin,Total 1.6 mg/dl (0.2-1.0); Creatinine Clr Calc Pharmacy 28.3 ml/min; Est GFR (African American) 37.6 ml/min; Est GFR (Non-African American) 32.5 ml/min; Globulin 2.6 gm/dl (2.5-4.0)
[2023-06-12] MEDS: PIPERACILLIN/TAZOBACTAM 4.5 GM in DEXTROSE 5% MINI-B 100 ML IV SCH ×3 (07:42→22:58)
--- NOTE | 2023-06-12 08:31 | Electrocardiogram Report ---
Test Reason : Blood Pressure : / mmHG Vent. 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
--- NOTE | 2023-06-12 09:44 | Gastrointestinal Consultation ---
Date of Consultation June 12, 2023 Assessment & Plan (1) Elevated LFTs: (2) Abdominal pain: Pt is a 87 yo female w aortic stenosis s/p TAVR, duodenal neuroendocrine tumor s/p endoscopic banding, pancreatic neuroendocrine tumor, w symptoms of nausea, upper & mid abd pain, noted to have leukocytosis and elevated LFTs w CT abd/pelvis showing cholelithiasis wo cholecystitis, and moderate CBD dilation. DDx: choledocholithiasis, cholangitis. - CL diet today - NPO after midnight - Zosyn IV - Plan for EUS/ERCP tomorrow 06/13/2023 - Surgery consult to eval for possible cholecystectomy - Trend LFTs Supervising Physician Co-Signing Physician Notes I saw and evaluated the patient. She presented with chills and subjective fever at home, now symptoms are resolved. Imaging reveals CBD dilation and likely stones in the gallbladder with elevated liver tests. Plan EUS / ERCP on Monday (No OR or GI nursing available for a procedure today) continue abx coverage NPO at [place], may have clear liquid today History of Present Illness Reason for Consultation: Possible cholangitis, elevated LFTs Requesting Physician: Dr. Luis Alvarez Attending Physician: Dr. 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 No vomiting or bowel habit changes. Labs showed mild leukocytosis, and elevated LFTs: Tbili 1.6, AST 276, ALT 246, Alk phose 114, lipase normal at 11. CT abd/pelvis showed moderate dilation of CBD, cholelithiasis wo cholecystitis. CXR (-) Allergies Allergy/AdvReac Type Severity Reaction Status Date / Time bee venom protein (honey bee) Allergy Intermediate SWELLING Verified 06/11/23 19:30 Sulfa (Sulfonamide Allergy Intermediate RASH Verified 06/11/23 19:30 Antibiotics) Home Medications Medication Instructions Recorded Confirmed Type ascorbic acid (vitamin C) 500 mg 500 mg PO QAM 12/16/20 06/11/23 History tablet (Vitamin C) atorvastatin 20 mg tablet 20 mg PO QAM 12/16/20 06/11/23 History levothyroxine 100 mcg tablet 100 mcg PO QAM 12/16/20 06/11/23 History lisinopril 40 mg tablet 40 mg PO QAM 12/16/20 06/11/23 History metoprolol tartrate 25 mg tablet 25 mg PO BID 12/16/20 06/11/23 History multivitamin 1 tab PO QAM 12/16/20 06/11/23 History omeprazole 40 mg capsule,delayed 40 mg PO QAM 12/16/20 06/11/23 History release octreotide acetate 50 mcg/mL 50 mcg subcut UD 10/29/21 06/11/23 History injection solution (Sandostatin) acetaminophen 500 mg capsule 1,000 mg PO TID PRN Pain 06/11/23 06/11/23 History aspirin 81 mg tablet,delayed 81 mg PO DAILY 06/11/23 06/11/23 History release (Fransisca Low Dose Aspirin) cholecalciferol (vitamin D3) 10 400 mcg PO DAILY 06/11/23 06/11/23 History mcg (400 unit) tablet (Vitamin D3) furosemide 20 mg tablet 20 mg PO DAILY 06/11/23 06/11/23 History hydrocodone 5 mg-acetaminophen 325 1 tab PO Q6H PRN moderate-severe 06/11/23 06/11/23 History mg tablet pain Patient History Medical History Iron deficiency anemia following with [facility] Encounter for pre-operative examination Primary neuroendocrine carcinoma of duodenum following with [facility]c Primary pancreatic neuroendocrine tumor following with [facility] Aortic stenosis mild to moderate CKD (chronic kidney disease) stage 3, GFR 30-59 ml/min Cr 1.3-1.7 over past 7 months Type 2 diabetes mellitus NIDDM Hypothyroidism Hyperlipidemia Hypertension controlled, stable per pt History of bleeding ulcers >3.5 YRS AGO Myocardial Infarction silent [place] per pt, denies when first detected Pacemaker d/t bradycardia/syncope, [employer]tronic, follows with [facility] cardio History of COVID-19 05/24- FATIGUE, no other symptoms, no hospitalization Sensorineural hearing loss (SNHL) of both ears Surgical History S/P colonoscopy Hx of esophagogastroduodenoscopy Previous back surgery >11 YEARS AGO- [facility]: pt states upon induction felt "unusual" (unable to further describe) and woke up with emery wheel molder and anesthesiologist checking on her-suspects was bradycardia prior to pacemaker placement; reports no additional issues/episodes; no available records History of cardiac cath >10 YRS AGO- [facility]- DOES NOT REMEMBER WHY- NO STENT History of knee replacement BILAT Family History Other Allergies No family history of bleeding disorder Denies family history of Hearing loss Heart disease Cancer Hypertension Stroke Asthma Social History Smoking Status: Never smoker Second Hand Exposure: No; Do You Dip or Chew Tobacco: No; Hx Alcohol Use: No Hx Substance Use: No Preferred Language: Yi Communication Ability: Effective Sow Farm Manager Required: No Beliefs That Will Affect Care: None marital status: Current Living Situation: Spouse current occupational status: retired How many Children do You have: 4 Feels Safe at Home: Yes Safety Concerns: Feels Safe At This Time Assistive Devices: Cane Review of Systems Review of Systems: All systems reviewed & are unremarkable except as noted in HPI & below Physical Exam Constitutional: WD/WN, vitals as above well groomed, cooperative and comfortable Eyes: PERRL, conjunctivae normal, anicteric sclerae ENMT: external ear and nose normal, oropharynx normal Respiratory: normal respiratory effort, lungs clear to auscultation Cardiovascular: RRR, no murmur, no edema Gastrointestinal (Abdomen): normal bowel sounds, soft, nontender, no hepatosplenomegaly Skin: no rashes, warm and dry no jaundice Psychiatric: A+Ox3, euthymic affect Lymphatic: no lymphedema Results & Data Vital Signs (Past 12 Hours) Vital Signs Temp Pulse Pulse Resp BP BP Pulse Ox 06/12/23 08:13 68 06/12/23 07:00 72 15 95 06/12/23 06:23 59 L 134/81 06/12/23 05:08 60 17 141/77 H 94 06/12/23 00:17 58 L 183/67 H 06/11/23 23:15 61 06/11/23 22:26 36.6 C 72 18 162/64 H 96 06/11/23 22:20 Pulse Ox O2 Del Method O2 Del Method 06/12/23 08:13 06/12/23 07:00 06/12/23 06:23 06/12/23 05:08 Room Air 06/12/23 00:17 06/11/23 23:15 06/11/23 22:26 Room Air 06/11/23 22:20 94 Room Air
--- NOTE | 2023-06-12 10:59 | Surgery Consultation ---
Date of Consultation June 12, 2023 Assessment & Plan (1) Elevated LFTs: Patient is a pleasant 87 yo female with PMH of Pancreatic tumor (receiving Sandostatin monthly), Primary neuroendocrine carcinoma of duodenum, Aortic stenosis s/p TAVR 04/27, CKD (chronic kidney disease) stage 3, GFR 30-59 ml/min, Type 2 diabetes mellitus, Hypothyroidism, Hyperlipidemia, Hypertension, History of bleeding ulcers, Myocardial Infarction, Pacemaker, that presented to the [facility] Er today with C/O abdominal pain that has been on-going for the past couple days. She stated that it was generalized to mid epigastric area, and last night she had chills. Denies vomiting, fevers, change in bowel habits, had some nausea. Does not think pain was associated with eating any particular foods. Patient follows with Dr. Sparks in cardiology, and Dr. Rendon in oncology. She has been NPO since yesterday AM. Take a daily ASA. Denies prior abdominal surgeries. On exam patient is comfortable , resting in bed, denies abdominal pain currently, abdomen is soft , non-tender, non-distended VSS, elevated LFTs, T. Bili 1.6 (2), AST 276 (549), ALT 246 (290) alk. phos. 114 (154). CT scan showing IMPRESSION: 1. No bowel obstruction. No bowel wall thickening. Normal appendix. 2. Moderate dilatation of the common bile duct, slightly increased since prior CT and MRI. Findings could be correlated with obstructive liver function tests. Wall thickening and enhancement of the biliary tree. This is nonspecific however cholangitis is within the differential. Subtle stranding adjacent to the liver/kim hepatis, as described above. Cholelithiasis. Contracted gallbladder. No evidence for acute cholecystitis. 3. Chronic diverticulosis. No evidence for acute diverticulitis. GI was consulted and planned for an ERCP tomorrow WBC 8 (12) VSS Diet per GI recommendation IV Fluids for hydration IV antiemetic PRN IV antibiotics pt was given Zosyn in the ER IV analgesic PRN No acute surgical indication today, Will discuss case with on-call surgeon Dr Sandie Walsh and further recommendations will be forthcoming. Supervising Physician Co-Signing Physician Notes Patient seen and examined, labs and imaging reviewed, agree with above. 87-year-old female with multiple medical problems including neuroendocrine tumor of the pancreas that is unresectable and recent TAVR found to have suspected cholelithiasis and choledocholithiasis. Currently she is not in any pain. She is afebrile with stable vitals, abdomen soft, nondistended, nontender. Labs reviewed, imaging personally reviewed and interpreted and agree with the assess ment of a slightly dilated common bile duct with cholelithiasis and no evidence of obvious cholecystitis. She is currently planned for EUS and ERCP tomorrow. She has been cleared by cardiology for surgery. She is not on any blood thinners Potentially plan for robotic versus laparoscopic cholecystectomy, either under the same anesthesia or in the near future. She is aware that if her neuroendo crine tumor is causing extrinsic compression of the common bile duct that cholecystectomy would not be beneficial. She also understands that if there is any evidence of significant scarring from her neuroendocrine tumor around the kim hepatis it may make cholecystectomy dangerous. This will be determined at the time of ERCP and at the time of surgery. risks discussed to include but not limited to bleeding, infection, retained stone, bile leak, open surgery, damage to surrounding structures including bile duct, need for future or more extensive surgery, failure to treat symptoms, and risks of anesthesia. History of Present Illness Reason for Consultation: Abdominal pain Attending Physician: Luis Alvarez MD History of Present Illness Patient is a pleasant 87 yo female with PMH of Pancreatic tumor (receiving Sandostatin monthly), Primary neuroendocrine carcinoma of duodenum, Aortic stenosis s/p TAVR 04/27, CKD (chronic kidney disease) stage 3, GFR 30-59 ml/min, Type 2 diabetes mellitus, Hypothyroidism, Hyperlipidemia, Hypertension, History of bleeding ulcers, Myocardial Infarction, Pacemaker, that presented to the [facility] Er today with C/O abdominal pain that has been on-going for the past couple days. She stated that it was generalized to mid epigastric area, and last night she had chills. Denies vomiting, fevers, change in bowel habits, had some nausea. Does not think pain was associated with eating any particular foods. Patient follows with Dr. Sparks in cardiology, and Dr. Rendon in oncology. She has been NPO since yesterday AM. Take a daily ASA. Allergies Allergy/AdvReac Type Severity Reaction Status Date / Time bee venom protein (honey bee) Allergy Intermediate SWELLING Verified 06/11/23 19:30 Sulfa (Sulfonamide Allergy Intermediate RASH Verified 06/11/23 19:30 Antibiotics) Home Medications Medication Instructions Recorded Confirmed Type ascorbic acid (vitamin C) 500 mg 500 mg PO QAM 12/16/20 06/11/23 History tablet (Vitamin C) atorvastatin 20 mg tablet 20 mg PO QAM 12/16/20 06/11/23 History levothyroxine 100 mcg tablet 100 mcg PO QAM 12/16/20 06/11/23 History lisinopril 40 mg tablet 40 mg PO QAM 12/16/20 06/11/23 History metoprolol tartrate 25 mg tablet 25 mg PO BID 12/16/20 06/11/23 History multivitamin 1 tab PO QAM 12/16/20 06/11/23 History omeprazole 40 mg capsule,delayed 40 mg PO QAM 12/16/20 06/11/23 History release octreotide acetate 50 mcg/mL 50 mcg subcut UD 10/29/21 06/11/23 History injection solution (Sandostatin) acetaminophen 500 mg capsule 1,000 mg PO TID PRN Pain 06/11/23 06/11/23 History aspirin 81 mg tablet,delayed 81 mg PO DAILY 06/11/23 06/11/23 History release (Fransisca Low Dose Aspirin) cholecalciferol (vitamin D3) 10 400 mcg PO DAILY 06/11/23 06/11/23 History mcg (400 unit) tablet (Vitamin D3) furosemide 20 mg tablet 20 mg PO DAILY 06/11/23 06/11/23 History hydrocodone 5 mg-acetaminophen 325 1 tab PO Q6H PRN moderate-severe 06/11/23 06/11/23 History mg tablet pain Patient History Medical History Iron deficiency anemia following with [facility]c Encounter for pre-operative examination Primary neuroendocrine carcinoma of duodenum following with [facility] heme/onc Primary pancreatic neuroendocrine tumor following with [facility] heme/onc Aortic stenosis mild to moderate CKD (chronic kidney disease) stage 3, GFR 30-59 ml/min Cr 1.3-1.7 over past 7 months Type 2 diabetes mellitus NIDDM Hypothyroidism Hyperlipidemia Hypertension controlled, stable per pt History of bleeding ulcers >3.5 YRS AGO Myocardial Infarction silent MS per pt, denies when first detected Pacemaker d/t bradycardia/syncope, [employer], follows with [facility] cardio History of COVID-19 05/24- FATIGUE, no other symptoms, no hospitalization Sensorineural hearing loss (SNHL) of both ears Surgical History S/P colonoscopy Hx of esophagogastroduodenoscopy Previous back surgery >11 YEARS AGO- [facility]: pt states upon induction felt "unusual" (unable to further describe) and woke up with computer language coder and anesthesiologist checking on her-suspects was bradycardia prior to pacemaker placement; reports no additional issues/episodes; no available records History of cardiac cath >10 YRS AGO- [facility]- DOES NOT REMEMBER WHY- NO STENT History of knee replacement BILAT Family History Other Allergies No family history of bleeding disorder Denies family history of Hearing loss Heart disease Cancer Hypertension Stroke Asthma Social History Smoking Status: Never smoker Second Hand Exposure: No; Do You Dip or Chew Tobacco: No; Hx Alcohol Use: No Hx Substance Use: No Preferred Language: Belarusian Communication Ability: Effective Paralegal Secretary Required: No Beliefs That Will Affect Care: None marital status: Current Living Situation: Spouse current occupational status: retired How many Children do You have: 4 Feels Safe at Home: Yes Safety Concerns: Feels Safe At This Time Assistive Devices: Cane and Glasses Review of Systems Constitutional: + chills; no fever Eyes: + corrective lenses Ear, Nose, Mouth, Throat: no problem reported Respiratory: no dyspnea Cardiovascular: no chest pain Gastrointestinal: + abdominal pain and + nausea; no vomiti ng Musculoskeletal: no muscle weakness Integumentary: no rash Neurologic: no confusion and no memory loss Psychiatric: no problem reported Physical Exam Physical Exam: alert oriented Constitutional: cooperative, comfortable and + overweight; no acute distress ENMT: external ear and nose normal, oropharynx normal Neck: trachea midline, no thyromegaly Respiratory: normal respiratory effort and able to speak in complete sentences; no respiratory distress Cardiovascular: Rate/Rhythm: regular rate Gastrointestinal (Abdomen): Inspection/Auscultation: abdomen not distended Percussion/Palpation: abdomen soft; abdomen nontender and no guarding Musculoskeletal: no cyanosis or clubbing, extremities motor strength 5/5 Skin: no rashes, warm and dry Neurologic: awake; not confused Psychiatric: Orientation: alert and oriented x 3 Results & Data Vital Signs (Past 12 Hours) Vital Signs Pulse Pulse Resp BP BP Pulse Ox O2 Del Method 06/12/23 08:13 68 06/12/23 07:00 72 15 95 06/12/23 06:23 59 L 134/81 06/12/23 05:08 60 17 141/77 H 94 Room Air 06/12/23 00:17 58 L 183/67 H 06/11/23 23:15 61 Diagnostic Findings [place], [place] [phone] CT Scan Report Patient: JANAE ALMAZAN I Admit Date: 06/11/23 MR#: [id number] Address1: [address] [place] [address] Acct ID:[id number] Address2: Date: 1935 [facility] Zip: [place] [address] Age: 87 Location: ED Sex: F Room/Bed: Att Phy: Diagnosis: DIARRHEA, ABDOMINAL PAIN, INCREASED URINATION Viktoria Phy: Chelsey Mitchell DO Service Date: 06/11/23 Fam Phy: Interpreting Phy: Felix Santoro MDAdmit Phy: Ordering Phy: Naseem Marroquin PA cc: ~ CT OF THE ABDOMEN AND PELVIS WITH CONTRAST CLINICAL HISTORY: Periumbilical pain. COMPARISON STUDY: CT of the abdomen and pelvis August 25, 2009. MRI of the abdomen June 02, 2017. TECHNIQUE: Following IV administration of 89 mL of Optiray, axial images of the abdomen and pelvis were obtained from the lung bases to the proximal femurs. Images were reviewed in the axial, sagittal, and coronal planes. IV contrast was administered without complication. Automated exposure control was utilized for the study. A dose lowering technique was utilized adhering to the principles of ALARA. CT DOSE: 1190.35 mGy.cm FINDINGS: Pacer leads, prosthetic aortic valve and moderate cardiomegaly are incidentally noted. No pneumatosis, free air or portal venous gas is present. There is a small calcified gallstone within the gallbladder. Gallbladder is contracted. There is subtle stranding adjacent to the gallbladder. In addition, there is subtle stranding along the falciform ligament and adjacent to the right hepatic lobe and right adrenal gland. No fluid collection is present. Mild biliary ductal dilatation has slightly increased since prior CT and MRI. Common bile duct measures 1.3 cm in caliber. Note is made of mildly thickened enhancing wall of the common bile duct as well as the cystic duct and portions of the intrahepatic bile ducts. Spleen, adrenal glands and pancreas are unremarkable. No pancreatic ductal dilatation. 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 There is no hydronephrosis. There is mild bilateral renal cortical thinning. Several subcentimeter bilateral renal lesions are too small to characterize. The caliber and wall thickness of small and large bowel are normal. The appendix is normal. Colonic diverticulosis without evidence for acute diverticulitis. Evidence for pelvic floor relaxation. Images of the pelvis are degraded by streak artifact from a right hip arthroplasty. There is moderate atherosclerotic plaque within the abdominal aorta and branch vessels. There is no lymphadenopathy. There is no ascites. Postoperative findings within the spine are incidentally noted. IMPRESSION: 1. No bowel obstruction. No bowel wall thickening. Normal appendix. 2. Moderate dilatation of the common bile duct, slightly increased since prior C T and MRI. Findings could be correlated with obstructive liver function tests. Wall thickening and enhancement of the biliary tree. This is nonspecific however cholangitis is within the differential. Subtle stranding adjacent to the liver/kim hepatis, as described above. Cholelithiasis. Contracted gallbladder. No evidence for acute cholecystitis. 3. Chronic diverticulosis. No evidence for acute diverticulitis. ACT 112: Negative or not required by law. Electronically signed by: Felix Santoro M.D. 06/11/2023 3:27 PM Dictated: 06/11/23 151 Transcribed: 06/11/23 1514 Results Complete Blood Count Results: RBC 3.62 M/uL (4.20-5.40) L 06/12/23 WBC 8.09 K/ul (4.8-10.8) 06/12/23 Hgb 10.2 g/dl (12.0-16.0) L 06/12/23 Hct 32.1 % (37.0-47.0) L 06/12/23 Plt Count 105 K/uL (130-400) L 06/12/23 Results CMP Results: Na 139 mmol/L (136-145) 06/12/23 K 4.0 mmol/L (3.5-5.1) 06/12/23 Cl 105 mmol/L (98-107) 06/12/23 CO2 28 mmol/L (21-32) 06/12/23 Anion Gap 6 (3-11) 06/12/23 BUN 32 mg/dl (6-23) H 06/12/23 Creatinine 1.46 mg/dl (0.6-1.2) H 06/12/23 Estimated GFR ( Amer) 37.6 ml/min 06/12/23 Estimated GFR (Non-Af Amer) 32.5 ml/min 06/12/23 BUN/Creatinine Ratio 21.9 (10-20) H 06/12/23 Glu 136 mg/dl (70-99(Fasting)) H 06/12/23 Ca 9.0 mg/dl (8.6-10.3) 06/12/23 Total Bilirubin 1.6 mg/dl (0.2-1.0) H 06/12/23 Direct Bilirubin 1.1 mg/dl (0-0.2) H 06/11/23 AST 276 U/L (13-39) H 06/12/23 ALT 246 U/L (7-52) H 06/12/23 Alkaline Phosphatase 114 U/L (34-104) H 06/12/23 TP 6.0 gm/dl (6.0-8.3) 06/12/23 Albumin 3.4 gm/dl (3.4-5.0) 06/12/23 Globulin 2.6 gm/dl (2.5-4.0) 06/12/23 Albumin/Globulin Ratio 1.3 (0.9-2) 06/12/23 PG Care Time/CCT Total # of Minutes Spent Total Time Spent with Patient: Total time spent is greater than 50% in coordination of care (as documented) at patient's floor/unit and/or counseling patient: Coding Level of Care Code 65583 INT INP/OBS CARE 2/55MIN Diagnoses Elevated LFTs R79.89
[2023-06-12] MEDS: PANTOprazole 40 MG in SYRINGE 0 ML IV SCH (11:41)
[2023-06-12] MEDS: INSULIN ASPART PER UNIT CHARGE SC SCH ×4 (11:46→20:23)
--- NOTE | 2023-06-12 12:51 | Cardiology Consultation ---
Date of Consultation June 12, 2023 Assessment & Plan (1) Acute cholangitis: (2) Preop cardiovascular exam: (3) HTN (hypertension): (4) S/P TAVR (transcatheter aortic valve replacement): Plan Patient admitted for LFT"s, concerns for acute cholangitis. Plans for EUS/ERCP tomorrow. Clear liquid diet today. She is about 2 months post TAVR. Echo 1 month post TAVR in 05/2023 with normal gradients of aortic valve replacement and normal LVEF. Improved functional status noted by patient since valve surgery. On admission, her home cardiac medications were not ordered. She needs to remain on ASA 81 mg daily given recent TAVR. Ordered. Resume metoprolol tartrate 25 mg PO BID this morning. Ordered. Lisinopril was held due to concerns for hypotension while NPO. Resume if needed. home dose is lisinopril 40 mg daily. Hold statin given elevated LFT's Hold furosemide for now. Monitor fluid status with IV fluids. Patient optimized from cardiac standpoint to proceed with ERCP as planned. Further cardiac testing is not warranted or recommended at this time. will follow. Case discussed with Dr. Sparks I spent a total of 45 minutes on the date of service in preparation, delivery, and documentation of the care provided to this patient, excluding any time spent in the performance of separately billed services. Rosa Tyler PA-C Department of Cardiology, [facility] This chart was completed in part utilizing Speech Voice Recognition Software. Grammatical errors, random word insertions, pronoun errors, and incomplete sentences are an occasional consequence of this system due to software limitations, ambient noise, and hardware issues. Any formal questions or concerns about the content, text, or information contained within the body of this dictation should be directly addressed to the provider for clarification. Supervising Physician Co-Signing Physician Notes Supervising Physician Attestation: I have personally performed a history and physical examination on the patient. I agree with the physician event marketing assistant's findings and plan as documented with the following additions. Subjective: Patient with noted abdominal pain, currently feeling improved. Exam: Cardiovascular: Regular rhythm, 1/6 systolic murmur, no edema, pacemaker pocket clean dry and intact Data: EKG performed 06/11/2023 and interpret independently: Sinus rhythm at 77 bpm with prolonged AV delay as per pacemaker programming, [place] QRS complexes. No significant repolarization abnormalities Assessment and Plan: Cholangitis Recent TAVR Sick sinus syndrome for which patient has permanent pacemaker History of nonobstructive CAD -Patient stable from cardiology standpoint to proceed with ERCP and cholecystectomy if deemed indicated. -Ideally would like patient to be on her aspirin post TAVR to reduce risk of valve thrombosis or stroke. I spent a total of 20 minutes on the date of service in preparation, delivery, and documentation of the care provided to this patient, excluding any time spent in the performance of separately billed services. Darrell Sparks DO History of Present Illness Reason for Consultation: Preop ERCP Requesting Physician: Attending Physician: Luis Alvarez MD History of Present Illness Patient is a 87 year old female who was admitted to [facility] with abdominal pain and vomiting x 1 days. Diagnosed with possible acute cholangitis and cardiology consult was requested for preop EUS/ERCP scheduled for tomorrow. Cardiac history includes: 1. Severe aortic stenosis, s/p TAVR (#23 mm [place] Marni S3 Ultra valve-- over inflated by 1cc), [place] [facility] [place] 2. CAD, Mild single-vessel nonobstructive CAD with prox RCA 20% stenosis, remainder of coronaries are angiographically normal per pre TAVR catheterization 02/10/2023 3. Hypertension 4. Dyslipidemia 5. Sick sinus syndrome status post dual-chamber permanent pacemaker 01/2020 6. Chronic low back pain 7. History of pancreatic head neuroendocrine tumor, on treatment with Sandostatin Patient reports her abdominal pain and vomiting began yesterday. She was otherwise in normal state of health and has been active around the house. She even shoveled snow on Monday from her side walk and porch without exertional symptoms. She reports improved functional capacity since valve replacement in April. SOB improved. No chest pain. Upon admission, she was found to have elevated LFT's with CT of the abd/pelvis demonstrating cholelithiasis and moderate CBD dilation. GI and surgery following. No indication for acute surgical intervention today. LFT"s trending down this morning. She is scheduled for EUS/ERCP tomorrow. Patient/daughter wondering why she hasn't received cardiac meds. Not ordered on admission. Her BP has been high this morning. She is NPO except meds and clear liquids. She denies acute cardiac complaints. No chest pain/SOB/dizziness. No orthopnea, PND or edema. No sudden weight gain. No palpitations. Doing well post TAVR Allergies Allergy/AdvReac Type Severity Reaction Status Date / Time bee venom protein (honey bee) Allergy Intermediate SWELLING Verified 06/11/23 19:30 Sulfa (Sulfonamide Allergy Intermediate RASH Verified 06/11/23 19:30 Antibiotics) Home Medications Medication Instructions Recorded Confirmed Type ascorbic acid (vitamin C) 500 mg 500 mg PO QAM 12/16/20 06/11/23 History tablet (Vitamin C) atorvastatin 20 mg tablet 20 mg PO QAM 12/16/20 06/11/23 History levothyroxine 100 mcg tablet 100 mcg PO QAM 12/16/20 06/11/23 History lisinopril 40 mg tablet 40 mg PO QAM 12/16/20 06/11/23 History metoprolol tartrate 25 mg tablet 25 mg PO BID 12/16/20 06/11/23 History multivitamin 1 tab PO QAM 12/16/20 06/11/23 History omeprazole 40 mg capsule,delayed 40 mg PO QAM 12/16/20 06/11/23 History release octreotide acetate 50 mcg/mL 50 mcg subcut UD 10/29/21 06/11/23 History injection solution (Sandostatin) acetaminophen 500 mg capsule 1,000 mg PO TID PRN Pain 06/11/23 06/11/23 History aspirin 81 mg tablet,delayed 81 mg PO DAILY 06/11/23 06/11/23 History release (Fransisca Low Dose Aspirin) cholecalciferol (vitamin D3) 10 400 mcg PO DAILY 06/11/23 06/11/23 History mcg (400 unit) tablet (Vitamin D3) furosemide 20 mg tablet 20 mg PO DAILY 06/11/23 06/11/23 History hydrocodone 5 mg-acetaminophen 325 1 tab PO Q6H PRN moderate-severe 06/11/23 06/11/23 History mg tablet pain Patient History Medical History Iron deficiency anemia following with [facility]c Encounter for pre-operative examination Primary neuroendocrine carcinoma of duodenum following with [facility]c Primary pancreatic neuroendocrine tumor following with [facility] heme[facility]onc Aortic stenosis mild to moderate CKD (chronic kidney disease) stage 3, GFR 30-59 ml/min Cr 1.3-1.7 over past 7 months Type 2 diabetes mellitus NIDDM Hypothyroidism Hyperlipidemia Hypertension controlled, stable per pt History of bleeding ulcers >3.5 YRS AGO Myocardial Infarction silent MT per pt, denies when first detected Pacemaker d/t bradycardia/syncope, [employer], follows with [facility] cardio History of COVID-05/24- FATIGUE, no other symptoms, no hospitalization Sensorineural hearing loss (SNHL) of both ears Surgical History S/P colonoscopy Hx of esophagogastroduodenoscopy Previous back surgery >11 YEARS AGO- [facility]: pt states upon induction felt "unusual" (unable to further describe) and woke up with brick and blocker aid labor and anesthesiologist checking on her-suspects was bradycardia prior to pacemaker placement; reports no additional issues/episodes; no available records History of cardiac cath >10 YRS AGO- [facility]- DOES NOT REMEMBER WHY- NO STENT History of knee replacement BILAT Family History Other Allergies No family history of bleeding disorder Denies family history of Hearing loss Heart disease Cancer Hypertension Stroke Asthma Social History Smoking Status: Never smoker Second Hand Exposure: No; Do You Dip or Chew Tobacco: No; Hx Alcohol Use: No Hx Substance Use: No Preferred Language: Serbian Communication Ability: Effective Composite Worker Required: No Beliefs That Will Affect Care: None marital status: Current Living Situation: Spouse current occupational status: retired How many Children do You have: 4 Feels Safe at Home: Yes Safety Concerns: Feels Safe At This Time Assistive Devices: Cane and Glasses Review of Systems Review of Systems: All systems reviewed & are unremarkable except as noted in HPI & below Physical Exam Constitutional: WD/WN, vitals as above well developed; no acute distress Respiratory: normal respiratory effort, lungs clear to auscultation Cardiovascular: Rate/Rhythm: regular rate and regular rhythm Heart Sounds: + murmur (II/ systolic murmur LSB) Neurologic: PERRL, EOMI, accommodation nl, no face palsy, no dysarthria Results & Data Vital Signs (Past 12 Hours) Vital Signs Pulse Pulse Resp BP BP Pulse Ox O2 Del Method 06/12/23 12:17 59 L 06/12/23 08:13 68 06/12/23 07:00 72 15 95 06/12/23 06:23 59 L 134/81 06/12/23 05:08 60 17 141/77 H 94 Room Air Laboratory Results Cardiac Enzymes 06/11/23 06/11/23 06/12/23 Range/Units 13:33 19:36 05:57 AST 549 H 276 H (13-39) U/L Troponin I High Sens 15.5 H 21.4 H (0-14) pg/ml CBC 06/11/23 06/12/23 Range/Units 13:33 05:57 WBC 12.01 H 8.09 (4.8-10.8) K/ul RBC 4.00 L 3.62 L (4.20-5.40) M/uL Hgb 11.2 L 10.2 L (12.0-16.0) g/dl Hct 35.6 L 32.1 L (37.0-47.0) % Plt Count 121 L 105 L (130-400) K/uL Neut # (Auto) 10.74 H 6.66 H (1.40-6.50) K/uL Lymph # (Auto) 0.44 L 0.63 L (1.20-3.40) K/uL [place] # (Auto) 0.63 H 0.64 H (0.11-0.59) K/uL Eos # (Auto) 0.13 0.10 (0.00-0.50) K/uL Baso # (Auto) 0.02 0.02 (0.00-0.20) K/uL Comprehensive Metabolic Panel 06/11/23 06/12/23 Range/Units 13:33 05:57 Sodium 137 139 (136-145) mmol/L Potassium 4.1 4.0 (3.5-5.1) mmol/L Chloride 103 105 (98-107) mmol/L Carbon Dioxide 25 28 (21-32) mmol/L BUN 38 H 32 H (6-23) mg/dl Creatinine 1.42 H 1.46 H (0.6-1.2) mg/dl Glucose 159 H 136 H (70-99(Fasting)) mg/dl Calcium 9.6 9.0 (8.6-10.3) mg/dl Direct Bilirubin 1.1 H (0-0.2) mg/dl AST 549 H 276 H (13-39) U/L ALT 290 H 246 H (7-52) U/L Alkaline Phosphatase 154 H 114 H (34-104) U/L Total Protein 7.0 6.0 (6.0-8.3) gm/dl Albumin 4.1 3.4 (3.4-5.0) gm/dl Intake and Output 06/11/23 06/12/23 06/12/23 22:59 06:59 14:59 Intake Total 600 / 800 200 / 800 Balance 600 / 800 200 / 800 Intake: IV 600 / 800 200 / 800 Acetaminophen 1,000 mg In 100 100 / 100 ml @ 400 mls/hr IV Q12H PRN Rx# :[id number] Piperacillin/Tazobactam 4.5 gm 100 / 100 In Dextrose 5% Mini-B 100 ml @ 25 mls/hr IV Q8H [facility] Rx#: [id number] Piperacillin/Tazobactam 4.5 gm 100 / 100 In 100 ml @ 200 mls/hr IV NOW ONE Rx#:[id number] Sodium Chloride 0.9% 500 ml @ 500 / 500 999 mls/hr IV .Q31M ONE Rx#: [id number] Other: # Unmeasured Voids 1 2 Weight 83.9 kg Weight Measurement Method Built in [facility] Diagnostic Findings Telemetry reviewed: Atrial paced, ventricular sensed. Occ PVC's. EKG reviewed from admission 06/11/22: Atrial pacing with prolonged AV conduction NO acute ischemic changes. Outpatient echo reviewed from 05/25/23: Interpretation Summary The examination is adequate to evaluate the referral indication. The left ventricular cavity size is normal. The LV wall thickness is moderately increased (concentric). The left ventricular wall motion is normal. The qualitative LV ejection fraction is 65-69% (normal). The left ventricular diastolic function is mildly abnormal (grade I). The patient is status post TAVR with Marni type prosthetic valve. The aortic valve prosthesis systolic gradients are normal for this type prosthesis. Trivial paravalvular aortic valve prosthesis regurgitation is present. Mild mitral regurgitation is present. Mild tricuspid regurgitation is present. The proximal ascending thoracic aorta is mildly enlarged. (4.3 cm) Medications Administered Current Inpatient Medications Aspirin (Aspirin 81 Mg Ectab) 81 mg PO QAM [facility] Stop: 07/12/23 12:59 Dextrose (Dextrose 50% 50 Ml Syringe) 25 - 50 ml IV UD PRN; Protocol PRN Reason: Hypoglycemia Protocol Stop: 07/11/23 20:41 Glucagon (Glucagon For Inj 1 Mg Vial) 1 mg SQ UD PRN; Protocol PRN Reason: Hypoglycemia Protocol Stop: 07/11/23 20:41 Glucose (Glucose 10 Tab/Tube) 4 - 8 tab PO UD PRN; Protocol PRN Reason: Hypoglycemia Treatment Stop: 07/11/23 20:41 Glucose (Glucose 40% Gel 15 Gm Tube) 15 - 30 gm PO UD PRN; Protocol PRN Reason: Hypoglycemia Protocol Stop: 07/11/23 20:41 Acetaminophen (Ofirmev) 1,000 mg in 100 mls @ 400 mls/hr IV Q12H PRN PRN Reason: Pain or Fever Stop: 06/14/23 20:41 Last Infusion: 06/12/23 00:01 Dose: Infused Piperacillin Sod/Tazobactam (Sod 4.5 gm/ Dextrose) 100 mls @ 25 mls/hr IV Q8H [facility]; Protocol Stop: 06/21/23 22:59 Last Admin: 06/12/23 07:42 Dose: 25 mls/hr Sodium Chloride (Nss) 1,000 mls @ 80 mls/hr IV .[id number] [facility] Stop: 06/12/23 21:41 Last Admin: 06/11/23 22:23 Dose: 80 mls/hr Pantoprazole Sodium 40 mg/ (Syringe) 10 mls @ 5 mls/min IV DAILY@1100 [facility] Stop: 07/12/23 10:59 Last Admin: 06/12/23 11:41 Dose: 5 mls/min Insulin Aspart (Insulin Aspart Per Unit Charge) 0 units SC ACHS [facility] Stop: 07/11/23 20:59 Last Admin: 06/12/23 11:46 Dose: Not Given Metoprolol Tartrate (Metoprolol Tartrate 25 Mg Tab) 25 mg PO BID [facility] Stop: 07/12/23 12:59 Miscellaneous (Carbohydrates For Hypoglycemia ) 15 - 30 gm PO UD PRN PRN Reason: Hypoglycemia Protocol Stop: 07/11/23 20:41 Morphine Sulfate (Morphine Sulfate 2 Mg/Ml Carp) 2 mg IV Q4H PRN PRN Reason: Mod-Sev Pain (Scale 4-10) Stop: 06/25/23 20:41 Ondansetron HCl (Ondansetron Inj 2 Mg/Ml 2 Ml Vial) 4 mg IV Q6H PRN PRN Reason: Nausea Stop: 07/11/23 20:41
[2023-06-12] MEDS: ASPIRIN 81 MG ECTAB PO SCH (13:30)
[2023-06-12] MEDS: METOPROLOL TARTRATE 25 MG TAB PO SCH ×2 (13:30→19:46)
[2023-06-12] MEDS: SODIUM CHLORIDE 0.9% 1,000 ML IV SCH (15:27)
--- NOTE | 2023-06-12 17:46 | Hospitalist Progress Note ---
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 In ER afebrile, vital stable. WBC: 12. T. bili: 1.1, AST: 549 (was 25 and 12/25), ALT: 290 (was 16 on 12/25), alk phos: 154 (82 in 12/25). CT abdomen pelvis: 1. No bowel obstruction. No bowel wall thickening. Normal appendix. 2. Moderate dilatation of the common bile duct, slightly increased since prior CT and MRI. Findings could be correlated with obstructive liver function tests. Wall thickening and enhancement of the biliary tree. This is nonspecific however cholangitis is within the differential. Subtle stranding adjacent to the liver/kim hepatis, as described above. Cholelithiasis. Contracted gallbladder. No evidence for acute cholecystitis. 3. Chronic diverticulosis. No evidence for acute diverticulitis. Acute cholangitis No recurrent chills or nausea or abdominal pain. Patient currently asymptomatic In ER given IVF, Zosyn, Zofran ER physician contacted on-call GI here who was unable to perform ERCP and recommended transfer. ER physician called [facility] [place] for potential transfer for ERCP. Per epic notes [facility] [place] stated that since patient is not septic and critically ill an emergent ERCP would not be completed tonight and recommended patient can get ERCP here tomorrow. If ERCP is not possible at this facility or patient decompensates to call back for consideration of transfer. Blood cultures (obtained after initial IV antibiotics given) NPO IVF, IV Zosyn,IV Tylenol, IV morphine prn pain Appreciate GI input and recommendation for ERCP today Patient is symptomatically better Awaiting blood cultures Will continue current care (4) Elevated troponin: Plan: Minimally elevated troponin at 15. Doubt ACS Denies chest pain, shortness of breath EKG Q waves anterior leads and T wave changes inferior leads, these were compared to EKG in 2021 and appears similar per my interpretation Will repeat troponin and EKG in a.m. Serial troponins did not show any evidence of ACS The patient was evaluated by keyseating machine set up operator as requested by the surgery She has acceptable risk for the procedure Appreciate cardiology input and recommendation (5) Primary neuroendocrine carcinoma of duodenum: (6) Primary pancreatic neuroendocrine tumor: Plan: History duodenal neuroendocrine tumor removed by endoscopic banding in 2018 History pancreatic neuroendocrine tumor on Sandostatin monthly Follows with Dr Rendon, [facility] [place] (7) SSS (sick sinus syndrome): Plan: S/P pacemaker (8) CKD (chronic kidney disease) stage 3, GFR 30-59 ml/min: Plan: Cr: 1.4. Baseline 1.3-1.5 Monitor renal functions, avoid nephrotoxic agents when possible Creatinine remains stable at 1.46 (9) HTN (hypertension): Plan: Stable Hold lisinopril, Lasix while n.p.o. Convert home oral metoprolol tartrate to IV for now (10) Type 2 diabetes mellitus: Plan: A1c: 7.1 on 04/20/2023 Currently diet controlled Monitor BSG's NovoLog sliding scale correction only at this time while n.p.o. (11) Hyperlipidemia: Plan: Hold atorvastatin while n.p.o. (12) Aortic stenosis: Plan: S/P TAVR in 04/2023 at [facility] [place] Denies any cardiac symptoms Appreciate cardiology input and recommendation (13) Hypothyroidism: Plan: Hold oral levothyroxine at this time while npo, resume when able (14) Iron deficiency anemia: Plan: Hgb: 11. Baseline 11-12 Monitor H&H (15) GERD (gastroesophageal reflux disease): Plan: Convert oral PPI to IV while npo DVT Prophylaxis SCDs for now Full Code as per discussion with pt Follows with Dr Chelsey Mitchell for routine care Admission and Anticipated Discharge Date Admission Date: June 11, 2023 Subjective 06/12/2023 The patient was seen and examined in emergency room in presence of the daughter She was admitted with epigastric/right upper quadrant pain but since admission pain seems to be controlled with current medication Denies any fever and or chills Denies any chest pain and her palpitation Review of Systems Review of Systems: All systems reviewed and are unremarkable except as noted below Physical Exam Physical Exam: Lying in bed without any apparent distress Constitutional: well developed, well nourished, + ill appearing and + obese Eyes: PERRL, conjunctivae normal, anicteric sclerae ENMT: external ear and nose normal, oropharynx normal Neck: trachea midline, no thyromegaly Respiratory: no respiratory distress Auscultation: + diminished lung sounds and + crackles (Minimal crackles at the bases) Cardiovascular: Rate/Rhythm: regular rate, regular rhythm and + bradycardic Heart Sounds: normal S1, normal S2 and + murmur (2/6 ESM over precordium) Extremities: + edema (Trace to 1+ edema bilaterally) Gastrointestinal (Abdomen): Inspection/Auscultation: normal bowel sounds; abdomen not distended Percussion/Palpation: + abdomen tender (Minimally tender in the epigastrium) and abdomen soft; no guarding and abdomen not rigid Musculoskeletal: No acute arthritis involving any joint Neurologic: normal touch/pain/proprioception and moves all extremities; no focal motor deficits Lymphatic: no cervical or axillary lymphadenopathy Results & Data Results & Data Vital Signs (Past 12 Hours) Vital Signs Pulse Resp BP Pulse Ox 06/12/23 17:34 58 L 06/12/23 14:00 143/89 H 06/12/23 14:00 60 20 95 06/12/23 13:00 157/78 H 06/12/23 13:00 78 20 95 06/12/23 12:23 67 15 97 06/12/23 12:17 59 L 06/12/23 12:00 63 20 95 06/12/23 11:55 70 22 96 06/12/23 11:55 119/101 H 06/12/23 11:30 171/90 H 06/12/23 11:30 62 12 95 06/12/23 11:00 178/84 H 06/12/23 11:00 61 18 95 06/12/23 10:01 148/85 H 06/12/23 10:01 61 12 91 06/12/23 10:00 60 14 92 06/12/23 09:01 60 15 94 06/12/23 09:01 154/82 H 06/12/23 09:00 61 22 92 06/12/23 08:13 68 06/12/23 08:02 61 15 96 06/12/23 08:02 194/78 H 06/12/23 08:00 61 25 H 95 06/12/23 07:00 72 15 95 01/08/24 06:23 59 L 134/81 Laboratory Results Short CBC 06/12/23 Range/Units 05:57 WBC 8.09 (4.8-10.8) K/ul Hgb 10.2 L (12.0-16.0) g/dl Hct 32.1 L (37.0-47.0) % Plt Count 105 L (130-400) K/uL BMP 06/12/23 05:57 Sodium 139 Potassium 4.0 Chloride 105 Carbon Dioxide 28 BUN 32 H Creatinine 1.46 H Glucose 136 H Calcium 9.0 Liver Function 06/12/23 Range/Units 05:57 Total Bilirubin 1.6 H (0.2-1.0) mg/dl AST 276 H (13-39) U/L ALT 246 H (7-52) U/L Alkaline Phosphatase 114 H (34-104) U/L Albumin 3.4 (3.4-5.0) gm/dl Medications Administered Current Inpatient Medications Aspirin (Aspirin 81 Mg Ectab) 81 mg PO QAM [facility] Stop: 07/12/23 12:59 Last Admin: 06/12/23 13:30 Dose: 81 mg Dextrose (Dextrose 50% 50 Ml Syringe) 25 - 50 ml IV UD PRN; Protocol PRN Reason: Hypoglycemia Protocol Stop: 07/11/23 20:41 Glucagon (Glucagon For Inj 1 Mg Vial) 1 mg SQ UD PRN; Protocol PRN Reason: Hypoglycemia Protocol Stop: 07/11/23 20:41 Glucose (Glucose 10 Tab/Tube) 4 - 8 tab PO UD PRN; Protocol PRN Reason: Hypoglycemia Treatment Stop: 07/11/23 20:41 Glucose (Glucose 40% Gel 15 Gm Tube) 15 - 30 gm PO UD PRN; Protocol PRN Reason: Hypoglycemia Protocol Stop: 07/11/23 20:41 Acetaminophen (Ofirmev) 1,000 mg in 100 mls @ 400 mls/hr IV Q12H PRN PRN Reason: Pain or Fever Stop: 06/14/23 20:41 Last Infusion: 06/12/23 00:01 Dose: Infused Piperacillin Sod/Tazobactam (Sod 4.5 gm/ Dextrose) 100 mls @ 25 mls/hr IV Q8H [facility]; Protocol Stop: 06/21/23 22:59 Last Admin: 06/12/23 16:49 Dose: 25 mls/hr Sodium Chloride (Nss) 1,000 mls @ 80 mls/hr IV .[id number] [facility] Stop: 06/12/23 21:41 Last Admin: 06/12/23 15:27 Dose: 80 mls/hr Pantoprazole Sodium 40 mg/ (Syringe) 10 mls @ 5 mls/min IV DAILY@1100 [facility] Stop: 07/12/23 10:59 Last Admin: 06/12/23 11:41 Dose: 5 mls/min Insulin Aspart (Insulin Aspart Per Unit Charge) 0 units SC ACHS [facility] Stop: 07/11/23 20:59 Last Admin: 06/12/23 16:38 Dose: Not Given Metoprolol Tartrate (Metoprolol Tartrate 25 Mg Tab) 25 mg PO BID [facility] Stop: 07/12/23 12:59 Last Admin: 06/12/23 13:30 Dose: 25 mg Miscellaneous (Carbohydrates For Hypoglycemia ) 15 - 30 gm PO UD PRN PRN Reason: Hypoglycemia Protocol Stop: 07/11/23 20:41 Morphine Sulfate (Morphine Sulfate 2 Mg/Ml Carp) 2 mg IV Q4H PRN PRN Reason: Mod-Sev Pain (Scale 4-10) Stop: 06/25/23 20:41 Ondansetron HCl (Ondansetron Inj 2 Mg/Ml 2 Ml Vial) 4 mg IV Q6H PRN PRN Reason: Nausea Stop: 07/11/23 20:41
[2023-06-13] MEDS ORDERED: lisinopril 20 MG TAB PO STA ×2 (05:12→14:50)
[2023-06-13] MEDS ORDERED: hydrALAZINE HCL 20 MG/ML VIAL IV ONE (05:13)
[2023-06-13] MEDS: PIPERACILLIN/TAZOBACTAM 4.5 GM in DEXTROSE 5% MINI-B 100 ML IV SCH ×3 (05:54→23:18)
[2023-06-13] MEDS: INSULIN ASPART PER UNIT CHARGE SC SCH ×4 (06:12→20:31)
[2023-06-13 06:15] LABS: Basophils # (auto) 0.02 K/uL (0.00-0.20); Basophils % (auto) 0.3 %; Eosinophils # (auto) 0.59 K/uL (0.00-0.50); Eosinophils % (auto) 9.7 %; Hematocrit (blood only) 32.7 % (37.0-47.0); Hemoglobin 10.4 g/dl (12.0-16.0); Immature Granulocytes # (auto) 0.03 K/uL (0.01-0.20); Immature Granulocytes % (auto) 0.5 %; Lymphocytes # (auto) 0.62 K/uL (1.20-3.40); Lymphocytes % (auto) 10.2 %; Mean Corpuscular Hgb Conc 31.8 g/dL (32.0-36.0); Mean Corpuscular Volume 88.1 fL (80.0-100.0); Mean Platelet Volume 10.6 fL (9.4-12.4); Monocytes # (auto) 0.63 K/uL (0.11-0.59); Monocytes % (auto) 10.4 %; Neutrophils # (auto) 4.19 K/uL (1.40-6.50); Neutrophils % (auto) 68.9 %; Platelet Count 104 K/uL (130-400); RDW Coefficient of Variation 14.3 % (11.5-14.5); RDW Standard Deviation 46.3 fL (36.4-46.3); Red Blood Count 3.71 M/uL (4.20-5.40); White Blood Count 6.08 K/ul (4.8-10.8)
[2023-06-13 06:38] LABS: Albumin Globulin Ratio 1.3 (0.9-2); Albumin Level 3.4 gm/dl (3.4-5.0); Bilirubin,Total 1.4 mg/dl (0.2-1.0); Calcium 9.1 mg/dl (8.6-10.3); Creatinine Clr Calc Pharmacy 31.3 ml/min; Est GFR (African American) 41.8 ml/min; Globulin 2.7 gm/dl (2.5-4.0); Magnesium 1.8 mg/dl (1.7-2.4); Phosphorus 2.7 mg/dl (2.5-4.9); Potassium 3.8 mmol/L (3.5-5.1); Total Protein 6.1 gm/dl (6.0-8.3)
[2023-06-13] MEDS: ACETAMINOPHEN 1,000 MG/100 ML VIAL IV PRN (07:54)
[2023-06-13] MEDS: METOPROLOL TARTRATE 25 MG TAB PO SCH ×3 (07:56→20:35)
[2023-06-13] MEDS: ASPIRIN 81 MG ECTAB PO SCH ×2 (07:56→13:09)
--- NOTE | 2023-06-13 07:57 | Surgery Progress Note ---
Date of Service June 13, 2023 Assessment & Plan (1) Abdominal pain: Plan: Patient sitting up in bed Denies CP, SOB, fever chills , abd pain Scheduled for ERCP today Undetermined if patient will need cholecystectomy, will know after ERCP VSS CBC wnl, creatinine 1.3, T. Bili 1.4, AST 146 (276), ALT 167 (246), Alkaline phos. 103 (114) Will continue to monitor Admission and Anticipated Discharge Date Admission Date: June 11, 2023 Supervising Physician Co-Signing Physician Notes pnt s&e, labs reviewed, agree with above. H/O pancreatic head neuroendocrine tumor, cholelithiasis with poss choledocholithiasis, less likely from tumor. afvss, abd soft, nt, nd. wbc normal, lft's slightly improved. ERCP today. Will await results, if choledocholithiasis, then consider robotic cholecystectomy in near future. d/w Dr. Nickerson from GI. Subjective Patient sitting up in bed Denies CP, SOB, fever chills , abd pain Review of Systems Constitutional: + chills; no fever Eyes: + corrective lenses Ear, Nose, Mouth, Throat: no problem reported Respiratory: no dyspnea Cardiovascular: no chest pain Gastrointestinal: + abdominal pain and + nausea; no vomiti ng Musculoskeletal: no muscle weakness Integumentary: no rash Neurologic: no confusion and no memory loss Psychiatric: no problem reported Physical Exam Physical Exam: alert oriented Constitutional: cooperative, comfortable and + overweight; no acute distress ENMT: external ear and nose normal, oropharynx normal Neck: trachea midline, no thyromegaly Respiratory: normal respiratory effort and able to speak in complete sentences; no respiratory distress Cardiovascular: Rate/Rhythm: regular rate Gastrointestinal (Abdomen): Inspection/Auscultation: abdomen not distended Percussion/Palpation: abdomen soft; abdomen nontender and no guarding Musculoskeletal: no cyanosis or clubbing, extremities motor strength 5/5 Skin: no rashes, warm and dry Neurologic: awake; not confused Psychiatric: Orientation: alert and oriented x 3 Results & Data Vital Signs (Past 12 Hours) Vital Signs Temp Pulse Pulse Pulse Resp BP Pulse Ox 06/13/23 07:35 98.2 F 67 18 188/95 H 95 06/13/23 04:02 98.2 F 67 18 181/78 H 96 06/12/23 22:57 98.8 F 61 18 180/94 H 94 06/12/23 22:36 61 06/12/23 20:30 62 182/86 H O2 Del Method 06/13/23 07:35 Room Air 06/13/23 04:02 Room Air 06/12/23 22:57 Room Air 06/12/23 22:36 06/12/23 20:30 PG Care Time/CCT Total # of Minutes Spent Total Time Spent with Patient: Total time spent is greater than 50% in coordination of care (as documented) at patient's floor/unit and/or counseling patient: Coding Level of Care Code 97273 SUB INP/OBS CARE 1/25MIN Diagnoses Abdominal pain R10.9
--- NOTE | 2023-06-13 08:57 | Gastroenterology Progress Note ---
Date of Service June 13, 2023 Assessment & Plan (1) Elevated LFTs: (2) Abdominal pain: Plan: Pt is a 87 yo female w aortic stenosis s/p TAVR, duodenal neuroendocrine tumor s/p endoscopic banding, pancreatic neuroendocrine tumor, w symptoms of nausea, upper & mid abd pain, noted to have leukocytosis and elevated LFTs w CT abd/pelvis showing cholelithiasis wo cholecystitis, and moderate CBD dilation. DDx: choledocholithiasis, cholangitis. - NPO for EUS/ERCP today - Zosyn IV - Surgery following - Trend LFTs - GI recs to follow after procedures above Admission and Anticipated Discharge Date Admission Date: June 11, 2023 Supervising Physician Co-Signing Physician Notes Patient is to undergo further evaluation with upper endoscopy, endoscopic ultrasound and likely ERCP today. We discussed the risks and benefits of the procedures to include bleeding infection perforation pain, pancreatitis and fa iled biliary cannulation. Subjective Denies abd pain, n/v, CP, SOB. Review of Systems Review of Systems: All systems reviewed & are unremarkable except as noted in HPI & below Physical Exam Constitutional: WD/WN, vitals as above well groomed, cooperative and comfortable Eyes: PERRL, conjunctivae normal, anicteric sclerae ENMT: external ear and nose normal, oropharynx normal Respiratory: normal respiratory effort, lungs clear to auscultation Cardiovascular: RRR, no murmur, no edema Gastrointestinal (Abdomen): normal bowel sounds, soft, nontender, no hepatosplenomegaly Skin: no rashes, warm and dry no jaundice Psychiatric: A+Ox3, euthymic affect Lymphatic: no lymphedema Results & Data Vital Signs (Past 12 Hours) Vital Signs Temp Pulse Pulse Pulse Resp BP Pulse Ox 06/13/23 07:35 36.8 C 67 18 188/95 H 95 06/13/23 04:02 36.8 C 67 18 181/78 H 96 06/12/23 22:57 37.1 C 61 18 180/94 H 94 06/12/23 22:36 61 O2 Del Method 06/13/23 07:35 Room Air 06/13/23 04:02 Room Air 06/12/23 22:57 Room Air 06/12/23 22:36
[2023-06-13] MEDS ORDERED: ONDANSETRON INJ 2 MG/ML 2 ML VIAL ONE (10:20)
[2023-06-13] MEDS ORDERED: PROPOFOL IV EMULSION 10 MG/ML 20 ML VIAL IV ONE (10:20)
[2023-06-13] MEDS ORDERED: LIDOCAINE 2% 2 ML VIAL/AMP(20MG/ML) INFIL ONE (10:20)
[2023-06-13] MEDS ORDERED: ROCURONIUM BROMIDE 10 MG/ML 5 ML VIAL IV ONE (10:20)
[2023-06-13] MEDS ORDERED: GLYCOPYRROLATE 0.2 MG/ML VIAL ONE (10:20)
[2023-06-13] MEDS ORDERED: DEXAMETHASONE SOD INJ 4 MG/ML VIAL ONE (10:20)
[2023-06-13] MEDS ORDERED: SUGAMMADEX SODIUM 200 MG/2 ML VIAL IV ONE (10:21)
[2023-06-13] MEDS ORDERED: fentaNYL citrate PF 100 MCG/2 ML VIAL ONE (10:21)
[2023-06-13] MEDS ORDERED: ATROPINE SULFATE 0.1 MG/ML 10ML SYR IV PRN (10:51)
[2023-06-13] MEDS ORDERED: ONDANSETRON INJ 2 MG/ML 2 ML VIAL IV PRN (10:51)
[2023-06-13] MEDS ORDERED: ePHEDrine sulfate 50 MG/ML AMP IV PRN (10:51)
[2023-06-13] MEDS ORDERED: HYDROmorphone INJ 2 MG/ML SYR/VIAL IV PRN (10:51)
[2023-06-13] MEDS ORDERED: fentaNYL citrate PF 100 MCG/2 ML VIAL IV PRN (10:51)
--- NOTE | 2023-06-13 11:00 | Anesthesiology Consultation ---
Date of Service June 13, 2023 Assessment & Plan ASA ASA3 Proposed Anesthesia Anesthesia Type: General Risk / Benefits Reviewed With: PT / POA / Parent / Guardian, Accepts Plan and Informed Consent Obtained History Surgery Operation Date: 06/13/23 11:15 Proposed Procedures p Endoscopic Retrograde Cholangiopancreatogram - Stiven Nickersno DO s Endoscopic Ultrasonography Upper - Stiven Nickersno DO Height/Weight Height: 5 ft 2 in Weight: 86.5 kg Allergies Allergy/AdvReac Type Severity Reaction Status Date / Time bee venom protein (honey bee) Allergy Intermediate SWELLING Verified 06/11/23 19:30 Sulfa (Sulfonamide Allergy Intermediate RASH Verified 06/11/23 19:30 Antibiotics) Medications Home Medications Medication Instructions Recorded Confirmed Last Taken ascorbic acid (vitamin C) 500 mg 500 mg PO QAM 12/16/20 06/11/23 11/15/21 08:00 tablet (Vitamin C) atorvastatin 20 mg tablet 20 mg PO QAM 12/16/20 06/11/23 06/11/23 levothyroxine 100 mcg tablet 100 mcg PO QAM 12/16/20 06/11/23 06/11/23 lisinopril 40 mg tablet 40 mg PO QAM 12/16/20 06/11/23 06/11/23 metoprolol tartrate 25 mg tablet 25 mg PO BID 12/16/20 06/11/23 06/11/23 multivitamin 1 tab PO QAM 12/16/20 06/11/23 11/15/21 08:00 omeprazole 40 mg capsule,delayed 40 mg PO QAM 12/16/20 06/11/23 06/11/23 release octreotide acetate 50 mcg/mL 50 mcg subcut UD 10/29/21 06/11/23 10/23/21 injection solution (Sandostatin) acetaminophen 500 mg capsule 1,000 mg PO TID PRN Pain 06/11/23 06/11/23 Unknown aspirin 81 mg tablet,delayed 81 mg PO DAILY 06/11/23 06/11/23 Unknown release (Fransisca Low Dose Aspirin) cholecalciferol (vitamin D3) 10 400 mcg PO DAILY 06/11/23 06/11/23 Unknown mcg (400 unit) tablet (Vitamin D3) furosemide 20 mg tablet 20 mg PO DAILY 06/11/23 06/11/23 06/11/23 hydrocodone 5 mg-acetaminophen 325 1 tab PO Q6H PRN moderate-severe 06/11/23 06/11/23 Unknown mg tablet pain Active Medications Generic Name Dose Route Start Last Admin Trade Name Yovani PRN Reason Stop Dose Admin Aspirin 81 mg 06/12/23 13:00 06/12/23 13:30 Aspirin 81 Mg Ectab PO 07/12/23 12:59 81 mg QAM SG Administration Acetaminophen 1,000 mg in 100 mls @ 400 mls/hr 06/11/23 20:42 06/13/23 08:36 Ofirmev IV 06/14/23 20:41 Infused Q12H PRN Infusion Pain or Fever Piperacillin Sod/Tazobactam 100 mls @ 25 mls/hr 06/11/23 23:00 06/13/23 10:11 Sod 4.5 gm/ Dextrose IV 06/21/23 22:59 Infused Q8H SG Infusion Protocol Pantoprazole Sodium 40 mg/ 10 mls @ 5 mls/min 06/12/23 11:00 06/12/23 11:41 Syringe IV 07/12/23 10:59 5 mls/min DAILY@1100 SG Administration Insulin Aspart 0 units 06/13/23 06:00 06/13/23 06:12 Insulin Aspart Per Unit Charge SC 07/13/23 05:59 Not Given Q6H SG Metoprolol Tartrate 25 mg 06/12/23 13:00 06/13/23 08:40 Metoprolol Tartrate 25 Mg Tab PO 07/12/23 12:59 25 mg BID SG Administration NPO Date Last Intake of Fluids: 06/13/23 Time Last Intake of Fluids: 08:40 Last Intake of Fluids Comment: sip with med Date Last Intake of Solids: 06/11/23 Time Last Intake of Solids: 07:00 Past Medical History Medical History Iron deficiency anemia following with [facility] Encounter for pre-operative examination Primary neuroendocrine carcinoma of duodenum following with [facility] Primary pancreatic neuroendocrine tumor following with [facility]c Aortic stenosis mild to moderate CKD (chronic kidney disease) stage 3, GFR 30-59 ml/min Cr 1.3-1.7 over past 7 months Type 2 diabetes mellitus NIDDM Hypothyroidism Hyperlipidemia Hypertension controlled, stable per pt History of bleeding ulcers >3.5 YRS AGO Myocardial Infarction silent WA per pt, denies when first detected Pacemaker d/t bradycardia/syncope, [employer], follows with [facility] History of COVID-19 05/24- FATIGUE, no other symptoms, no hospitalization Sensorineural hearing loss (SNHL) of both ears Exercise / Class Metabolic Activity II 4-5 Yardwork/Stairs/Walk up hill Past Family History Family History Other Allergies No family history of bleeding disorder Denies family history of Hearing loss Heart disease Cancer Hypertension Stroke Asthma Past Surgical History Surgical History S/P colonoscopy Hx of esophagogastroduodenoscopy Previous back surgery >11 YEARS AGO- [facility]: pt states upon induction felt "unusual" (unable to further describe) and woke up with polygraph operator and anesthesiologist checking on her-suspects was bradycardia prior to pacemaker placement; reports no additional issues/episodes; no available records History of cardiac cath >10 YRS AGO- [facility]- DOES NOT REMEMBER WHY- NO STENT History of knee replacement BILAT Past Anesthesia History No Hx of Anesthesia Complications and No Family Hx of Anesthesia Complications History of PONV No Hx of PONV and No Hx of Motion Sickness Social History Smoking Status: Never smoker Do You Dip or Chew Tobacco: No Hx Alcohol Use: No Hx Substance Use: No substance use type: does not use Review of Systems denies fever/cough/ colds/ chest pain/ SOB/ DIAZ denies DIAZ Physical Exam Vital Signs Last Vital Signs Temp 37 C 06/13/23 10:30 Pulse 67 06/13/23 10:30 Resp 20 06/13/23 10:30 BP 195/82 H 06/13/23 10:30 Pulse Ox 98 06/13/23 10:30 O2 Del Method Room Air 06/13/23 10:30 ENMT Mouth: no TMJ abnormality and no dentition abnormality Thyromental Distance: > or= 3.5 Finger Breadths Mallampati Class: II Neck neck extension not limited Respiratory normal respiratory effort; no respiratory distress Auscultation: lungs clear to auscultation bilaterally Cardiovascular Rate/Rhythm: regular rate and regular rhythm Neurologic moves all extremities Psychiatric Orientation: alert and oriented x 3 Testing Laboratory Results 06/13/23 05:35 06/13/23 05:35 Urine Color Yellow 06/11/23 13:33 Urine Appearance Clear (Clear) 06/11/23 13:33 Urine pH 6.0 (4.5-7.5) 06/11/23 13:33 Ur Specific [place] 1.015 (1.000-1.030) 06/11/23 13:33 Urine Protein Negative (Negative) 06/11/23 13:33 Urine Glucose (UA) Negative (Negative) 06/11/23 13:33 Urine Ketones Negative (Negative) 06/11/23 13:33 Urine Nitrite Negative (Negative) 06/11/23 13:33 Ur Leukocyte Esterase Negative (Negative) 06/11/23 13:33 06/11/23 20:59 Aerobic Blood Culture - Preliminary Blood No growth in Aerobic bottle after 24 hours. Anaerobic Blood Culture - Preliminary No growth in Anaerobic bottle after 24 hours. 06/11/23 20:56 Aerobic Blood Culture - Preliminary Blood No growth in Aerobic bottle after 24 hours. Anaerobic Blood Culture - Preliminary No growth in Anaerobic bottle after 24 hours. 06/13/23 06/13/23 06/12/23 10:38 05:49 20:14 POC Glucose 135 H 149 H 171 H
--- NOTE | 2023-06-13 11:26 | GI REPORT ---
Patient Name: Magdalena Payan Procedure Date: 06/13/2023 11:06 AM Date of : 1935 Admit Type: Inpatient Age: 87 Gender: Female Attending MD: Stiven Nickerson DO, Procedure: Upper GI endoscopy Providers: Stiven Nickerson DO Referring MD: Luis Alvarez Indications: Epigastric abdominal pain Medicines: General Anesthesia Complications: No immediate complications. Estimated blood loss: Minimal. Estimated Blood Loss: Estimated blood loss was minimal. Procedure: Pre-Anesthesia Assessment: - Prior to the procedure, a History and Physical was performed, and patient medications, allergies and sensitivities were reviewed. The patient's tolerance of previous anesthesia was reviewed. - The risks and benefits of the procedure and the sedation options and risks were discussed with the patient. All questions were answered and informed consent was obtained. - Patient identification and proposed procedure were verified prior to the procedure by the physician, the nurse and the furrier apprentice. The procedure was verified in the procedure room. - Pre-procedure physical examination revealed no contraindications to sedation. - ASA Grade Assessment: III - A patient with severe systemic disease. - After reviewing the risks and benefits, the patient was deemed in satisfactory condition to undergo the procedure. - The anesthesia plan was to use general anesthesia. - Immediately prior to administration of medications, the patient was re-assessed for adequacy to receive sedatives. - The heart rate, respiratory rate, oxygen saturations, blood pressure, adequacy of pulmonary ventilation, and response to care were monitored throughout the procedure. - The physical status of the patient was re-assessed after the procedure. After obtaining informed consent, the endoscope was passed under direct vision. Throughout the procedure, the patient's blood pressure, pulse, and oxygen saturations were monitored continuously.The upper GI endoscopy was accomplished without difficulty. The patient tolerated the procedure well. The Endoscope was introduced through the mouth, and advanced to the second part of duodenum. Findings: The examined esophagus was normal. The Z-line was regular and was found 40 cm from the incisors. Diffuse mild inflammation characterized by erythema and granularity was found in the entire examined stomach. One non-obstructing non-bleeding superficial gastric ulcer of mild to moderate severity with no stigmata of bleeding was found on the anterior wall of the gastric antrum. The lesion was 7 mm in largest dimension. Biopsies were taken with a cold forceps for histology. The pathology specimen was placed into Bottle A. Estimated blood loss was minimal. The examined duodenum was normal. Impression: - Normal esophagus. - Z-line regular, 40 cm from the incisors. - Gastritis. - Non-obstructing non-bleeding gastric ulcer with no stigmata of bleeding. Biopsied. - Normal examined duodenum. Recommendation: - Use Prilosec (omeprazole) 20 mg PO daily for 3 months. - Await pathology results. - Repeat upper endoscopy in 3 months to check healing. - Perform an upper endoscopic ultrasound (UEUS) today. Stiven Nickerson D.O. Stiven Nickerson, DO 06/13/2023 11:26:15 AM This report has been signed electronically. Note Initiated On: 06/13/2023 11:06 AM Number of Addenda: 0 I attest to the content of the Intraoperative Record and orders documented therein, exceptions below {[id number]}
--- NOTE | 2023-06-13 11:29 | Cardiology Progress Note ---
Date of Service June 13, 2023 Assessment & Plan (1) Acute cholangitis: (2) Preop cardiovascular exam: (3) HTN (hypertension): (4) S/P TAVR (transcatheter aortic valve replacement): Plan Patient admitted for LFT"s, concerns for acute cholangitis. Stable from cardiac perspective for ERCP and cholecystectomy if felt to be clinically indicated. Continue outpatient aspirin. Luana Sparks, Cardiology This chart was completed in part utilizing Speech Voice Recognition Software. Grammatical errors, random word insertions, pronoun errors, and incomplete sentences are an occasional consequence of this system due to software limitations, ambient noise, and hardware issues. Any formal questions or concerns about the content, text, or information contained within the body of this dictation should be directly addressed to the provider for clarification. Admission and Anticipated Discharge Date Admission Date: June 11, 2023 Subjective Patient seen in cardiology follow-up prior to ERCP today. Telemetry reveals sinus rhythm with AV sequential pacing in the 60s. Patient feeling well. Denies chest discomfort, shortness of breath, or abdominal discomfort. Physical Exam Constitutional: WD/WN, vitals as above well developed; no acute distress Respiratory: normal respiratory effort, lungs clear to auscultation Cardiovascular: Rate/Rhythm: regular rate and regular rhythm Heart Sounds: + murmur (II/ systolic murmur LSB) Neurologic: PERRL, EOMI, accommodation nl, no face palsy, no dysarthria Results & Data Vital Signs (Past 12 Hours) Vital Signs Temp Pulse Resp BP Pulse Ox O2 Del Method 06/13/23 10:30 37 C 67 20 195/82 H 98 Room Air 06/13/23 08:00 Room Air 06/13/23 07:35 36.8 C 67 18 188/95 H 95 Room Air 06/13/23 04:02 36.8 C 67 18 181/78 H 96 Room Air Laboratory Results Cardiac Enzymes 06/13/23 Range/Units 05:35 AST 146 H (13-39) U/L CBC 06/13/23 Range/Units 05:35 WBC 6.08 (4.8-10.8) K/ul RBC 3.71 L (4.20-5.40) M/uL Hgb 10.4 L (12.0-16.0) g/dl Hct 32.7 L (37.0-47.0) % Plt Count 104 L (130-400) K/uL Neut # (Auto) 4.19 (1.40-6.50) K/uL Lymph # (Auto) 0.62 L (1.20-3.40) K/uL [place] # (Auto) 0.63 H (0.11-0.59) K/uL Eos # (Auto) 0.59 H (0.00-0.50) K/uL Baso # (Auto) 0.02 (0.00-0.20) K/uL Comprehensive Metabolic Panel 06/13/23 Range/Units 05:35 Sodium 139 (136-145) mmol/L Potassium 3.8 (3.5-5.1) mmol/L Chloride 107 (98-107) mmol/L Carbon Dioxide 25 (21-32) mmol/L BUN 23 (6-23) mg/dl Creatinine 1.34 H (0.6-1.2) mg/dl Calcium 9.1 (8.6-10.3) mg/dl AST 146 H (13-39) U/L ALT 167 H (7-52) U/L Alkaline Phosphatase 103 (34-104) U/L Total Protein 6.1 (6.0-8.3) gm/dl Albumin 3.4 (3.4-5.0) gm/dl Intake and Output 06/12/23 06/13/23 06/13/23 22:59 06:59 14:59 Intake Total 1100 / 2300 1100 / 2300 200 / 200 Balance 1100 / 2300 1100 / 2300 200 / 200 Intake: IV 1100 / 2300 1100 / 2300 200 / 200 Acetaminophen 1,000 mg In 100 100 / 100 ml @ 400 mls/hr IV Q12H PRN Rx# :[id number] Piperacillin/Tazobactam 4.5 gm 100 / 300 100 / 300 100 / 100 In Dextrose 5% Mini-B 100 ml @ 25 mls/hr IV Q8H SG Rx#: [id number] Sodium Chloride 0.9% 1,000 ml @ 1000 / 2000 1000 / 2000 80 mls/hr IV .[id number] SG Rx#: [id number] Other: Other Intake Source NPO # Unmeasured Voids 1 2 1 Weight 86.5 kg 86.5 kg Weight Measurement Method Built in [facility] Patient Weight 06/14/23 06:59 Weight 86.5 kg
[2023-06-13] MEDS: INDOMETHACIN 50 MG SUPP PR ONE ×2 (12:10→13:43)
--- NOTE | 2023-06-13 12:27 | Post Operative Brief Note ---
Immediate Post Op Note v1 Date of Surgery June 13, 2023 Pre & Post Diagnosis Operation Date: 06/13/23 11:15 Pre-Op Diagnosis: ABD PAIN Post-Op Diagnosis: Antral ulcer Choledocholithiasis I identified the patient and participated in the time-out.: Yes Procedure Operation Date: 06/13/23 11:15 Actual Procedures p Esophagogastroduodenoscopy with biopsy(Not Applicable) - Stiven Nickerson DO s Endoscopic Ultrasonography Upper(Not Applicable) - Stiven Nickerson DO p Endoscopic Retrograde Cholangiopancreato - Stiven Nickerson DO Surgeon Stiven Nickerson, [place] Tower Loader none Estimated Blood Loss 0 Findings Consistent with Post-Op Diagnosis
--- NOTE | 2023-06-13 12:31 | Communication Note ---
Date of Service: June 13, 2023 Patient underwent upper endoscopy, EUS and ultimately ERCP today. Findings 1)gastritis 2)Antral ulcer 3)choledocholithiasis Intervention: Biliary sphincterotomy with placement of a common bile duct stenting and prophylactic pancreatic stent Recommendations 1) Cholecystectomy per general surgery 2) Avoid anticoagulation for 1 week 3) Avoid NSAIDs for 6 weeks to allow healing of the antral ulcer 4) repeat upper endoscopy with ERCP in 8 to 12 weeks for stent removal 5) Complete a 2-week course of antibiotics 6) Patient may have clears today 7) Omeprazole 20 mg daily for 3 months (ulcer healing) 8) Please call with questions or concerns, GI to sign off
--- NOTE | 2023-06-13 12:31 | GI REPORT ---
Patient Name: Magdalena Payan Procedure Date: 06/13/2023 11:07 AM Date of : 1935 Admit Type: Inpatient Age: 87 Gender: Female Attending MD: Stiven Nickerson DO, Procedure: Upper EUS Providers: Stiven Nickerson DO Referring MD: Luis Alvarez Indications: Elevated liver enzymes, Suspected choledocholithiasis Medicines: General Anesthesia Complications: No immediate complications. Estimated blood loss: Minimal. Estimated Blood Loss: Estimated blood loss was minimal. Procedure: Pre-Anesthesia Assessment: - Prior to the procedure, a History and Physical was performed, and patient medications, allergies and sensitivities were reviewed. The patient's tolerance of previous anesthesia was reviewed. - The risks and benefits of the procedure and the sedation options and risks were discussed with the patient. All questions were answered and informed consent was obtained. - Patient identification and proposed procedure were verified prior to the procedure by the physician, the nurse and the director of market intelligence. The procedure was verified in the procedure room. - Pre-procedure physical examination revealed no contraindications to sedation. - ASA Grade Assessment: III - A patient with severe systemic disease. - After reviewing the risks and benefits, the patient was deemed in satisfactory condition to undergo the procedure. - The anesthesia plan was to use general anesthesia. - Immediately prior to administration of medications, the patient was re-assessed for adequacy to receive sedatives. - The heart rate, respiratory rate, oxygen saturations, blood pressure, adequacy of pulmonary ventilation, and response to care were monitored throughout the procedure. - The physical status of the patient was re-assessed after the procedure. After obtaining informed consent, the endoscope was passed under direct vision. Throughout the procedure, the patient's blood pressure, pulse, and oxygen saturations were monitored continuously.The upper EUS was accomplished without difficulty. The patient tolerated the procedure well. The Scope was introduced through the mouth, and advanced to the second part of duodenum. Findings: ENDOSONOGRAPHIC FINDING: : There was dilation in the common bile duct which measured up to 13 mm. Multiple stones were visualized endosonographically in the common bile duct. The stones measured up to 6 mm in greatest dimension. They were hyperechoic and characterized by shadowing. Multiple stones were visualized endosonographically in the gallbladder. They were characterized by shadowing. There was no sign of significant endosonographic abnormality in the visualized portion of the liver. Homogeneous parenchyma, no focal pathology and no masses were identified. There was no sign of significant endosonographic abnormality in the entire pancreas. No masses, no cysts, the pancreatic duct was thin in caliber. No lymphadenopathy seen. There was no sign of significant endosonographic abnormality in the left adrenal gland. No adrenal gland enlargement was identified. Impression: - There was dilation in the common bile duct which measured up to 13 mm. - Multiple stones were visualized endosonographically in the common bile duct. - Multiple stones were visualized endosonographically in the gallbladder. - There was no evidence of significant pathology in the visualized portion of the liver. - There was no sign of significant pathology in the entire pancreas. - Endosonographic images of the left adrenal gland were unremarkable. - No specimens collected. Recommendation: - Perform an ERCP today. Stiven Nickerson D.O. Stiven Nickerson, 06/13/2023 12:31:29 PM This report has been signed electronically. Note Initiated On: 06/13/2023 11:07 AM Number of Addenda: 0 I attest to the content of the Intraoperative Record and orders documented therein, exceptions below {[id number]}
--- NOTE | 2023-06-13 12:38 | GI REPORT ---
Patient Name: Magdalena Payan Procedure Date: 06/13/2023 11:08 AM Date of : 1935 Admit Type: Inpatient Age: 87 Gender: Female Attending MD: Stiven Nickerson DO, Procedure: ERCP Providers: Stiven Nickerson DO Referring MD: Luis Alvarez Indications: Abdominal pain of suspected biliary origin, For therapy of bile duct stone(s) Medicines: General Anesthesia Complications: No immediate complications. Estimated blood loss: Minimal. Estimated Blood Loss: Estimated blood loss was minimal. Procedure: Pre-Anesthesia Assessment: - Prior to the procedure, a History and Physical was performed, and patient medications, allergies and sensitivities were reviewed. The patient's tolerance of previous anesthesia was reviewed. - The risks and benefits of the procedure and the sedation options and risks were discussed with the patient. All questions were answered and informed consent was obtained. - Patient identification and proposed procedure were verified prior to the procedure by the physician, the nurse and the appraiser real estate. The procedure was verified in the procedure room. - Pre-procedure physical examination revealed no contraindications to sedation. - ASA Grade Assessment: III - A patient with severe systemic disease. - After reviewing the risks and benefits, the patient was deemed in satisfactory condition to undergo the procedure. - The anesthesia plan was to use general anesthesia. - Immediately prior to administration of medications, the patient was re-assessed for adequacy to receive sedatives. - The heart rate, respiratory rate, oxygen saturations, blood pressure, adequacy of pulmonary ventilation, and response to care were monitored throughout the procedure. - The physical status of the patient was re-assessed after the procedure. After obtaining informed consent, the scope was passed under direct vision. Throughout the procedure, the patient's blood pressure, pulse, and oxygen saturations were monitored continuously.The ERCP was accomplished without difficulty. The patient tolerated the procedure well. The Duodenoscope was introduced through the mouth, and advanced to the duodenum and used to inject contrast into the bile duct and ventral pancreatic duct. Findings: A cable splicer apprentice film of the abdomen was obtained revealing orthopedic hardware consistent with the patient's prior back surgery. The esophagus was successfully intubated under direct vision without detailed examination of the pharynx, larynx, and associated structures, and upper GI tract. The upper GI tract was grossly normal. The major papilla was located entirely within a diverticulum. The ventral pancreatic duct was inadvertently cannulated with the short-nosed traction sphincterotome and 0.025 in Visiglide guidewire without any complications. The pancreatic wire was left in place to aid in biliary cannulation with a double wire technique and later place a prophylactic pancreatic stent. The bile duct was then deeply cannulated with the short-nosed traction sphincterotome and a second 0.025 in Visiglide guidewire. Contrast was injected. I personally interpreted the bile duct images. Contrast extended to the entire biliary tree. The main bile duct was moderately dilated and diffusely dilated. The largest diameter was 13 mm. Biliary sphincterotomy was made with a monofilament CleverCut distal wire sphincterotome using ERBE electrocautery. There was no post-sphincterotomy bleeding. To discover objects, the biliary tree was swept with a 15 mm balloon starting at the bifurcation. Two black pigmented, smooth stones were removed. No stones remained. One 5 Fr by 7 cm pancreatic stent with a full external pigtail and no internal flaps was placed 7 cm into the ventral pancreatic duct. Clear fluid flowed through the stent. The stent was in good position. One 10 Fr by 6 cm covered metal stent ([place] Viabile) was placed 6 cm into the common bile duct. Bile flowed through the stent. The stent was in good position. The endoscope was withdrawn from the patient. Indomethacin 100 mg was given via suppository to decrease the risk of post-ERCP pancreatitis (PEP). Impression: - The major papilla was located entirely within a diverticulum. - Choledocholithiasis was found. Complete removal was accomplished by biliary sphincterotomy and balloon extraction. - A biliary sphincterotomy was performed. - One pancreatic stent was placed into the ventral pancreatic duct. - One covered metal stent was placed into the common bile duct. - Indomethacin given to decrease risk of post-ERCP pancreatitis. Recommendation: - Avoid aspirin and nonsteroidal anti-inflammatory medicines. - Use broad spectrum antibiotics for 2 weeks. - Cholecystectomy per General Surgery - Repeat ERCP in 8 weeks to remove stent. Stiven Nickerson D.O. Stiven Nickerson DO 06/13/2023 12:38:39 PM This report has been signed electronically. Note Initiated On: 06/13/2023 11:08 AM Number of Addenda: 0 I attest to the content of the Intraoperative Record and orders documented therein, exceptions below {[id number]}
--- NOTE | 2023-06-13 12:44 | Anesthesiology Progress Note ---
Date of Service June 13, 2023 Anesthesia Post Procedure Vital Signs Vital Signs: Temp Pulse Pulse Pulse Resp BP BP 06/13/23 12:35 60 13 192/86 H 06/13/23 12:25 60 16 193/90 H 06/13/23 12:19 36.6 C 79 20 169/96 H 06/13/23 10:30 37 C 67 20 195/82 H 06/13/23 08:00 06/13/23 07:35 36.8 C 67 18 188/95 H 06/13/23 04:02 36.8 C 67 18 181/78 H 06/12/23 22:57 37.1 C 61 18 180/94 H 06/12/23 22:36 61 06/12/23 20:30 62 182/86 H 06/12/23 19:43 36.8 C 63 24 194/98 H 06/12/23 17:34 58 L 06/12/23 14:00 143/89 H 06/12/23 14:00 60 20 06/12/23 13:00 157/78 H 06/12/23 13:00 78 20 Pulse Ox O2 Del Method O2 Flow Rate 06/13/23 12:35 98 Oxymask 3 06/13/23 12:25 94 Room Air 06/13/23 12:19 96 Room Air 06/13/23 10:30 98 Room Air 06/13/23 08:00 Room Air 06/13/23 07:35 95 Room Air 06/13/23 04:02 96 Room Air 06/12/23 22:57 94 Room Air 06/12/23 22:36 06/12/23 20:30 06/12/23 19:43 94 Room Air 06/12/23 17:34 06/12/23 14:00 06/12/23 14:00 95 06/12/23 13:00 06/12/23 13:00 95 Pain Intensity Head: Pain Intensity: 4 Transfer of Care Handoff Completed per policy Notes Mental Status: alert / awake / arousable and participated in evaluation Patient Amnestic to Procedure: Yes Nausea / Vomiting: adequately controlled Pain: adequately controlled Airway Patency, RR, SpO2: stable & adequate BP & HR: stable & adequate Hydration State: stable & adequate Anesthetic Complications: no major complications apparent and Pt Satisfied with anesthetic care
--- NOTE | 2023-06-13 12:45 | Fluoroscopy Report ---
[place] ERCP biliary ductal CLINICAL HISTORY: ERCP TECHNIQUE: 4 views were obtained with the C-arm in the OR with the above procedure. Total fluoroscopy time was 43 seconds. Radiation dose was 14.1 mGy. Comparison: Comparison is made to CT abdomen pelvis 06/11/2023 FINDINGS/IMPRESSION: Intraoperative images were obtained of ERCP. Posterior fixation hardware is note d. Please correlate with intraoperative fluoroscopy and operative report. ACT 112: Negative or not required by law. Electronically signed by: Harsh Wu M.D. 06/13/2023 12:43 PM
--- NOTE | 2023-06-13 12:52 | Communication Note ---
Date of Service: June 13, [address] Nickerson's operative report patient had choledocholithiasis. Will schedule for Robotic Laparoscopic Cholecystectomy on 06/15/23, Please keep NPO at [place].
[2023-06-13] MEDS: PANTOprazole 40 MG in SYRINGE 0 ML IV SCH (13:09)
--- NOTE | 2023-06-13 14:48 | Hospitalist Progress Note ---
Date of Service June 13, 2023 Assessment & Plan (1) Abdominal pain: Plan: Status post biliary sphincterotomy with placement of a common bile duct stent and prophylactic pancreatic stent placement on 06/13/2023 GI recommendation following ERCP: Recommendations 1) Cholecystectomy per general surgery 2) Avoid anticoagulation for 1 week 3) Avoid NSAIDs for 6 weeks to allow healing of the antral ulcer 4) repeat upper endoscopy with ERCP in 8 to 12 weeks for stent removal 5) Complete a 2-week course of antibiotics 6) Patient may have clears today 7) Omeprazole 20 mg daily for 3 months (ulcer healing) 8) Please call with questions or concerns, GI to sign off Denies any more abdominal pain (2) Elevated LFTs: (3) Chills: Plan: Patient is 87-year-old female with PMH iron deficiency anemia, HTN, dyslipidemia, hypothyroidism, CKD III, DM II, aortic stenosis s/p TAVR 04/2023, 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 In ER afebrile, vital stable. WBC: 12. T. bili: 1.1, AST: 549 (was 25 and 12/25), ALT: 290 (was 16 on 12/25), alk phos: 154 (82 in 12/25). CT abdomen pelvis: 1. No bowel obstruction. No bowel wall thickening. Normal appendix. 2. Moderate dilatation of the common bile duct, slightly increased since prior CT and MRI. Findings could be correlated with obstructive liver function tests. Wall thickening and enhancement of the biliary tree. This is nonspecific however cholangitis is within the differential. Subtle stranding adjacent to the liver/kim hepatis, as described above. Cholelithiasis. Contracted gallbladder. No evidence for acute cholecystitis. 3. Chronic diverticulosis. No evidence for acute diverticulitis. Acute cholangitis No recurrent chills or nausea or abdominal pain. Patient currently asymptomatic In ER given IVF, Zosyn, Zofran ER physician contacted on-call GI here who was unable to perform ERCP and recommended transfer. ER physician called [facility] for potential transfer for ERCP. Per epic notes [facility] stated that since patient is not septic and critically ill an emergent ERCP would not be completed tonight and recommended patient can get ERCP here tomorrow. If ERCP is not possible at this facility or patient decompensates to call back for consideration of transfer. Blood cultures (obtained after initial IV antibiotics given) NPO IVF, IV Zosyn,IV Tylenol, IV morphine prn pain Appreciate GI input and recommendation for ERCP today Patient is symptomatically better Awaiting blood cultures-blood cultures have been negative Status post ERCP-biliary sphincterotomy with placement up common bile duct stent and prophylactic pancreatic stent ERCP showed-gastritis, antral ulcer- nonbleeding and choledocholithiasis She will be given clears orally today and will be kept n.p.o. after midnight tomorrow Schedule for robotic cholecystectomy on (4) Elevated troponin: Plan: Minimally elevated troponin at 15. Doubt ACS Denies chest pain, shortness of breath EKG Q waves anterior leads and T wave changes inferior leads, these were compared to EKG in 2021 and appears similar per my interpretation Will repeat troponin and EKG in a.m. 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 Baseline 1.3-1.5 Monitor renal functions, avoid nephrotoxic agents when possible Creatinine remains stable at 1.46 (9) HTN (hypertension): Plan: Stable Hold lisinopril, Lasix while n.p.o. Convert home oral metoprolol tartrate to IV for now (10) Type 2 diabetes mellitus: Plan: A1c: 7.1 on 04/20/2023 Currently diet controlled Monitor BSG's NovoLog sliding scale correction only at this time while n.p.o. (11) Hyperlipidemia: Plan: Hold atorvastatin while n.p.o. (12) Aortic stenosis: Plan: S/P TAVR in 04/2023 at [facility] Denies any cardiac symptoms Appreciate cardiology input and recommendation (13) Hypothyroidism: Plan: Hold oral levothyroxine at this time while npo, resume when able (14) Iron deficiency anemia: Plan: Hgb: 11. Baseline 11-12 Monitor H&H (15) GERD (gastroesophageal reflux disease): Plan: Convert oral PPI to IV while npo DVT Prophylaxis SCDs for now Full Code as per discussion with pt Follows with Dr Chelsey Mitchell for routine care Admission and Anticipated Discharge Date Admission Date: June 11, 2023 Subjective 06/12/2023 The patient was seen and examined in emergency room in presence of the daughter She was admitted with epigastric/right upper quadrant pain but since admission pain seems to be controlled with current medication Denies any fever and or chills Denies any chest pain and her palpitation 06/13/2023 The patient was seen and examined in medical telemetry unit She is a status post ERCP Denies any symptoms Will start clears orally as per GI recommendation Review of Systems Review of Systems: All systems reviewed and are unremarkable except as noted below Physical Exam Physical Exam: Lying in bed without any apparent distress Constitutional: well developed, well nourished, + ill appearing and + obese Eyes: PERRL, conjunctivae normal, anicteric sclerae ENMT: external ear and nose normal, oropharynx normal Neck: trachea midline, no thyromegaly Respiratory: no respiratory distress Auscultation: + diminished lung sounds and + crackles (Minimal crackles at the bases) Cardiovascular: Rate/Rhythm: regular rate, regular rhythm and + bradycardic Heart Sounds: normal S1, normal S2 and + murmur (2/6 ESM over precordium) Extremities: + edema (Trace to 1+ edema bilaterally) Gastrointestinal (Abdomen): Inspection/Auscultation: normal bowel sounds; abdomen not distended Percussion/Palpation: + abdomen tender (Minimally tender in the epigastrium) and abdomen soft; no guarding and abdomen not rigid Musculoskeletal: No acute arthritis involving any of the joint Neurologic: normal touch/pain/proprioception and moves all extremities; no focal motor deficits Lymphatic: no cervical or axillary lymphadenopathy Results & Data Results & Data Vital Signs (Past 12 Hours) Vital Signs Temp Pulse Pulse Resp BP Pulse Ox O2 Del Method 06/13/23 13:08 36.4 C L 63 18 188/94 H 95 Room Air 06/13/23 12:55 60 15 194/82 H 97 Room Air 06/13/23 12:45 36.6 C 62 15 188/84 H 94 Room Air 06/13/23 12:35 60 13 192/86 H 98 Oxymask 06/13/23 12:25 60 16 193/90 H 94 Room Air 06/13/23 12:19 36.6 C 79 20 169/96 H 96 Room Air 06/13/23 10:30 37 C 67 20 195/82 H 98 Room Air 06/13/23 08:00 Room Air 06/13/23 07:35 36.8 C 67 18 188/95 H 95 Room Air 06/13/23 04:02 36.8 C 67 18 181/78 H 96 Room Air O2 Flow Rate 06/13/23 13:08 06/13/23 12:55 06/13/23 12:45 06/13/23 12:35 3 06/13/23 12:25 06/13/23 12:19 06/13/23 10:30 06/13/23 08:00 06/13/23 07:35 06/13/23 04:02 Laboratory Results Short CBC 06/13/23 Range/Units 05:35 WBC 6.08 (4.8-10.8) K/ul Hgb 10.4 L (12.0-16.0) g/dl Hct 32.7 L (37.0-47.0) % Plt Count 104 L (130-400) K/uL BMP 06/13/23 05:35 Sodium 139 Potassium 3.8 Chloride 107 Carbon Dioxide 25 BUN 23 Creatinine 1.34 H Calcium 9.1 Liver Function 06/13/23 Range/Units 05:35 Total Bilirubin 1.4 H (0.2-1.0) mg/dl AST 146 H (13-39) U/L ALT 167 H (7-52) U/L Alkaline Phosphatase 103 (34-104) U/L Albumin 3.4 (3.4-5.0) gm/dl Medications Administered Current Inpatient Medications Aspirin (Aspirin 81 Mg Ectab) 81 mg PO QAM [facility] Stop: 07/12/23 12:59 Last Admin: 06/13/23 13:09 Dose: 81 mg Dextrose (Dextrose 50% 50 Ml Syringe) 25 - 50 ml IV UD PRN; Protocol PRN Reason: Hypoglycemia Protocol Stop: 07/11/23 20:41 Glucagon (Glucagon For Inj 1 Mg Vial) 1 mg SQ UD PRN; Protocol PRN Reason: Hypoglycemia Protocol Stop: 07/11/23 20:41 Glucose (Glucose 10 Tab/Tube) 4 - 8 tab PO UD PRN; Protocol PRN Reason: Hypoglycemia Treatment Stop: 07/11/23 20:41 Glucose (Glucose 40% Gel 15 Gm Tube) 15 - 30 gm PO UD PRN; Protocol PRN Reason: Hypoglycemia Protocol Stop: 07/11/23 20:41 Acetaminophen (Ofirmev) 1,000 mg in 100 mls @ 400 mls/hr IV Q12H PRN PRN Reason: Pain or Fever Stop: 06/14/23 20:41 Last Infusion: 06/13/23 08:36 Dose: Infused Piperacillin Sod/Tazobactam (Sod 4.5 gm/ Dextrose) 100 mls @ 25 mls/hr IV Q8H [facility]; Protocol Stop: 06/21/23 22:59 Last Infusion: 06/13/23 10:11 Dose: Infused Pantoprazole Sodium 40 mg/ (Syringe) 10 mls @ 5 mls/min IV DAILY@1100 [facility] Stop: 07/12/23 10:59 Last Admin: 06/13/23 13:09 Dose: 5 mls/min Insulin Aspart (Insulin Aspart Per Unit Charge) 0 units SC Q6H [facility] Stop: 07/13/23 05:59 Last Admin: 06/13/23 13:32 Dose: 1 units Metoprolol Tartrate (Metoprolol Tartrate 25 Mg Tab) 25 mg PO BID [facility] Stop: 07/12/23 12:59 Last Admin: 06/13/23 08:40 Dose: 25 mg Miscellaneous (Carbohydrates For Hypoglycemia ) 15 - 30 gm PO UD PRN PRN Reason: Hypoglycemia Protocol Stop: 07/11/23 20:41 Morphine Sulfate (Morphine Sulfate 2 Mg/Ml Carp) 2 mg IV Q4H PRN PRN Reason: Mod-Sev Pain (Scale 4-10) Stop: 06/25/23 20:41 Ondansetron HCl (Ondansetron Inj 2 Mg/Ml 2 Ml Vial) 4 mg IV Q6H PRN PRN Reason: Nausea Stop: 07/11/23 20:41
--- NOTE | 2023-06-13 14:54 | Communication Note ---
Date of Service: June 13, 2023 Attending addendum: Blood pressure has been very high Lisinopril and Lasix were on hold Will give 20 of Lasix today and her regular Lasix of 40 mg from tomorrow morning Monitor PRP Dr [place] Alvarez
[2023-06-13] MEDS ORDERED: Nursing to Pharmacy Communication SCH (17:30)
[2023-06-14] MEDS: PIPERACILLIN/TAZOBACTAM 4.5 GM in DEXTROSE 5% MINI-B 100 ML IV SCH ×3 (06:05→23:05)
[2023-06-14 06:42] LABS: Basophils # (auto) 0.01 K/uL (0.00-0.20); Basophils % (auto) 0.1 %; Hemoglobin 10.8 g/dl (12.0-16.0); Immature Granulocytes # (auto) 0.03 K/uL (0.01-0.20); Immature Granulocytes % (auto) 0.4 %; Lymphocytes % (auto) 7.5 %; Mean Corpuscular Hemoglobin 28.1 pg (25.0-34.0); Mean Corpuscular Hgb Conc 31.8 g/dL (32.0-36.0); Mean Corpuscular Volume 88.3 fL (80.0-100.0); Mean Platelet Volume 10.6 fL (9.4-12.4); Monocytes # (auto) 0.55 K/uL (0.11-0.59); Monocytes % (auto) 6.9 %; Neutrophils # (auto) 6.78 K/uL (1.40-6.50); Neutrophils % (auto) 85.1 %; Platelet Count 124 K/uL (130-400); RDW Standard Deviation 45.1 fL (36.4-46.3); Red Blood Count 3.85 M/uL (4.20-5.40); White Blood Count 7.97 K/ul (4.8-10.8)
[2023-06-14 07:21] LABS: Albumin Globulin Ratio 1.1 (0.9-2); Albumin Level 3.4 gm/dl (3.4-5.0); BUN Creatinine Ratio 17.9 (10-20); Calcium 9.2 mg/dl (8.6-10.3); Creatinine Clr Calc Pharmacy 31.2 ml/min; Est GFR (African American) 41.8 ml/min; Magnesium 1.8 mg/dl (1.7-2.4); Phosphorus 3.6 mg/dl (2.5-4.9); Potassium 3.7 mmol/L (3.5-5.1); Total Protein 6.4 gm/dl (6.0-8.3)
--- NOTE | 2023-06-14 08:02 | Surgery Progress Note ---
Date of Service June 14, 2023 Assessment & Plan (1) Cholelithiases: Plan: POD 1 ERCP Denies abd pain, CP, SOB, Fever, Chills, N/V Scheduled for a Robotic Lap. [place] tomorrow with Dr. Walsh May continue clears today [facility] with meds. Admission and Anticipated Discharge Date Admission Date: June 11, 2023 Supervising Physician Co-Signing Physician Notes pnt S&E, agree with above. PPD#1 ERCP with stent for choledocholithiasis. doing well, no issues. afvss, abd soft, nt. labs reviewed. plan for robotic cholecystectomy tomorrow. NPO after midnight. Subjective POD 1 ERCP Denies abd pain, CP, SOB, Fever, Chills Review of Systems Constitutional: no fever, no chills and no fatigue Eyes: + corrective lenses Ear, Nose, Mouth, Throat: no problem reported Respiratory: no dyspnea Cardiovascular: no chest pain Gastrointestinal: no abdominal pain, no nausea and no vomiting Genitourinary: no problem reported Musculoskeletal: no problem reported Integumentary: no rash Neurologic: no confusion and no memory loss Psychiatric: no problem reported Physical Exam Physical Exam: alert oriented pleasant Constitutional: well developed, cooperative and comfortable; no acute distress ENMT: external ear and nose normal, oropharynx normal Neck: trachea midline, no thyromegaly Respiratory: normal respiratory effort and able to speak in complete sentences; no respiratory distress Cardiovascular: Rate/Rhythm: regular rate Gastrointestinal (Abdomen): Inspection/Auscultation: abdomen not distended Percussion/Palpation: abdomen soft; abdomen nontender and no guarding Musculoskeletal: no cyanosis or clubbing, extremities motor strength 5/5 Skin: no rashes, warm and dry Neurologic: awake; not confused Results & Data Vital Signs (Past 12 Hours) Vital Signs Temp Pulse Pulse Resp BP Pulse Ox O2 Del Method 06/14/23 07:50 97.9 F 68 19 154/81 H 95 Room Air 06/14/23 07:00 62 06/14/23 04:28 98.4 F 61 20 155/85 H 92 Room Air 06/13/23 22:02 74 06/13/23 22:00 98.4 F 68 18 170/76 H 93 Room Air PG Care Time/CCT Total # of Minutes Spent Total Time Spent with Patient: Total time spent is greater than 50% in coordination of care (as documented) at patient's floor/unit and/or counseling patient: Coding Level of Care Code 71230 SUB INP/OBS CARE Diagnoses Cholelithiases K80.20
[2023-06-14] MEDS: lisinopril 40 MG TAB PO SCH (08:32)
[2023-06-14] MEDS: ASPIRIN 81 MG ECTAB PO SCH (08:32)
[2023-06-14] MEDS: METOPROLOL TARTRATE 25 MG TAB PO SCH ×2 (08:32→20:53)
[2023-06-14] MEDS: INSULIN ASPART PER UNIT CHARGE SC SCH ×4 (08:59→20:44)
[2023-06-14] MEDS: PANTOprazole 40 MG in SYRINGE 0 ML IV SCH (10:23)
--- NOTE | 2023-06-14 12:07 | Cardiology Progress Note ---
Date of Service June 14, 2023 Assessment & Plan (1) Acute cholangitis: (2) Preop cardiovascular exam: (3) HTN (hypertension): (4) S/P TAVR (transcatheter aortic valve replacement): Plan Patient underwent ERCP yesterday. Received stent for choledocholithiasis. Needs lap tricia, scheduled for 06/15/23. Patient's BP has been high since admission. Strong situational component. Lisinopril increased to 40 mg. Continue metoprolol 25 mg BID Patient is s/p TAVR in Apr 2023. Echo with preserved LVEF and normal gradients of TAVR in May 2023. Needs to stay on ASA 81 mg daily Stable from cardiac perspective for lap tricia. No further cardiac testing warranted at this time. Case discussed with Dr. Sparks I spent a total of 30 minutes on the date of service in preparation, delivery, and documentation of the care provided to this patient, excluding any time spent in the performance of separately billed services. Rosa Tyler PA-C Department of Cardiology, [facility] This chart was completed in part utilizing Speech Voice Recognition Software. Grammatical errors, random word insertions, pronoun errors, and incomplete sentences are an occasional consequence of this system due to software limitations, ambient noise, and hardware issues. Any formal questions or concerns about the content, text, or information contained within the body of this dictation should be directly addressed to the provider for clarification. Admission and Anticipated Discharge Date Admission Date: June 11, 2023 Supervising Physician Co-Signing Physician Notes Attending attestation: I have reviewed the advanced practitioner's documentation and agree with the plan of care. I accept the responsibility for the associated risk of managing the patient. Subjective: Pt without acute complaint SBP's as high as the 180-190s. Most recent measurement 149/99. Exam: CV: regular rhythm, 2/6 SM , no edema Data: AST , ALT trending toward improvement Impression: As noted above. Plan: Increase lisinopril to 40 mg daily. Stable from cardiac perspective for lap cholecystectomy. I spent a total of 20 minutes coordinating, documenting, and providing care for this patient excluding time spent in the performance of separately billed services or time spent by another provider. Darrell Sparks, DO Subjective Patient resting in bed. Notes mild abdominal tenderness, but improved from admission. Had ERCP yesterday. Needs Lap tricia, scheduled for tomorrow. She denies acute cardiac complaints. No CP, SOB, edema. No palpitations. No dizziness. Review of Systems Review of Systems: All systems reviewed & are unremarkable except as noted in HPI & below Physical Exam Constitutional: WD/WN, vitals as above well developed; no acute distress Respiratory: normal respiratory effort, lungs clear to auscultation Cardiovascular: Rate/Rhythm: regular rate and regular rhythm Heart Sounds: + murmur (II/ systolic murmur LSB) Neurologic: PERRL, EOMI, accommodation nl, no face palsy, no dysarthria Results & Data Vital Signs (Past 12 Hours) Vital Signs Temp Pulse Pulse Resp BP BP Pulse Ox 06/14/23 11:07 36.7 C 64 18 149/99 H 95 06/14/23 07:50 36.6 C 68 19 154/81 H 95 06/14/23 07:00 62 06/14/23 04:28 36.9 C 61 20 155/85 H 92 O2 Del Method 06/14/23 11:07 Room Air 06/14/23 07:50 Room Air 06/14/23 07:00 06/14/23 04:28 Room Air Laboratory Results Cardiac Enzymes 06/14/23 Range/Units 06:16 AST 90 H (13-39) U/L CBC 06/14/23 Range/Units 06:16 WBC 7.97 (4.8-10.8) K/ul RBC 3.85 L (4.20-5.40) M/uL Hgb 10.8 L (12.0-16.0) g/dl Hct 34.0 L (37.0-47.0) % Plt Count 124 L (130-400) K/uL Neut # (Auto) 6.78 H (1.40-6.50) K/uL Lymph # (Auto) 0.60 L (1.20-3.40) K/uL [place] # (Auto) 0.55 (0.11-0.59) K/uL Eos # (Auto) 0.00 (0.00-0.50) K/uL Baso # (Auto) 0.01 (0.00-0.20) K/uL Comprehensive Metabolic Panel 06/14/23 Range/Units 06:16 Sodium 138 (136-145) mmol/L Potassium 3.7 (3.5-5.1) mmol/L Chloride 105 (98-107) mmol/L Carbon Dioxide 24 (21-32) mmol/L BUN 24 H (6-23) mg/dl Creatinine 1.34 H (0.6-1.2) mg/dl Glucose 152 H (70-99(Fasting)) mg/dl Calcium 9.2 (8.6-10.3) mg/dl AST 90 H (13-39) U/L ALT 126 H (7-52) U/L Alkaline Phosphatase 99 (34-104) U/L Total Protein 6.4 (6.0-8.3) gm/dl Albumin 3.4 (3.4-5.0) gm/dl Intake and Output 06/13/23 06/14/23 06/14/23 22:59 06:59 14:59 Intake Total 100 / 1600 100 / 1600 100 / 100 Balance 100 / 1599 100 / 1599 100 / 100 Intake: IV 100 / 400 100 / 400 100 / 100 Piperacillin/Tazobactam 4.5 gm 100 / 300 100 / 300 100 / 100 In Dextrose 5% Mini-B 100 ml @ 25 mls/hr IV Q8H [facility] Rx#: [id number] Other: Other Intake Source NPO NPO Weight 85.8 kg Diagnostic Findings telemetry reviewed: paced in the 60-70's. no arrhythmias Medications Administered Current Inpatient Medications Aspirin (Aspirin 81 Mg Ectab) 81 mg PO QAM [facility] Stop: 07/12/23 12:59 Last Admin: 06/14/23 08:32 Dose: 81 mg Dextrose (Dextrose 50% 50 Ml Syringe) 25 - 50 ml IV UD PRN; Protocol PRN Reason: Hypoglycemia Protocol Stop: 07/11/23 20:41 Glucagon (Glucagon For Inj 1 Mg Vial) 1 mg SQ UD PRN; Protocol PRN Reason: Hypoglycemia Protocol Stop: 07/11/23 20:41 Glucose (Glucose 10 Tab/Tube) 4 - 8 tab PO UD PRN; Protocol PRN Reason: Hypoglycemia Treatment Stop: 07/11/23 20:41 Glucose (Glucose 40% Gel 15 Gm Tube) 15 - 30 gm PO UD PRN; Protocol PRN Reason: Hypoglycemia Protocol Stop: 07/11/23 20:41 Acetaminophen (Ofirmev) 1,000 mg in 100 mls @ 400 mls/hr IV Q12H PRN PRN Reason: Pain or Fever Stop: 06/14/23 20:41 Last Infusion: 06/13/23 08:36 Dose: Infused Piperacillin Sod/Tazobactam (Sod 4.5 gm/ Dextrose) 100 mls @ 25 mls/hr IV Q8H [facility]; Protocol Stop: 06/21/23 22:59 Last Infusion: 06/14/23 10:13 Dose: Infused Pantoprazole Sodium 40 mg/ (Syringe) 10 mls @ 5 mls/min IV DAILY@1100 [facility] Stop: 07/12/23 10:59 Last Admin: 06/14/23 10:23 Dose: 5 mls/min Insulin Aspart (Insulin Aspart Per Unit Charge) 0 units SC ACHS [facility] Stop: 07/13/23 05:59 Last Admin: 06/14/23 08:59 Dose: 3 units Lisinopril (Lisinopril 40 Mg Tab) 40 mg PO QAM [facility] Stop: 07/14/23 08:59 Last Admin: 06/14/23 08:32 Dose: 40 mg Metoprolol Tartrate (Metoprolol Tartrate 25 Mg Tab) 25 mg PO BID [facility] Stop: 07/12/23 12:59 Last Admin: 06/14/23 08:32 Dose: 25 mg Miscellaneous (Carbohydrates For Hypoglycemia ) 15 - 30 gm PO UD PRN PRN Reason: Hypoglycemia Protocol Stop: 07/11/23 20:41 Morphine Sulfate (Morphine Sulfate 2 Mg/Ml Carp) 2 mg IV Q4H PRN PRN Reason: Mod-Sev Pain (Scale 4-10) Stop: 06/25/23 20:41 Ondansetron HCl (Ondansetron Inj 2 Mg/Ml 2 Ml Vial) 4 mg IV Q6H PRN PRN Reason: Nausea Stop: 07/11/23 20:41
--- NOTE | 2023-06-14 16:53 | Hospitalist Progress Note ---
Date of Service June 14, 2023 Assessment & Plan (1) Abdominal pain: Plan: per Dr Alvarez's notes with addendum: Status post biliary sphincterotomy with placement of a common bile duct stent and prophylactic pancreatic stent placement on 06/13/2023 GI recommendation following ERCP: Recommendations 1) Cholecystectomy per general surgery 2) Avoid anticoagulation for 1 week 3) Avoid NSAIDs for 6 weeks to allow healing of the antral ulcer 4) repeat upper endoscopy with ERCP in 8 to 12 weeks for stent removal 5) Complete a 2-week course of antibiotics 6) Patient may have clears today 7) Omeprazole 20 mg daily for 3 months (ulcer healing) 8) Please call with questions or concerns, GI to sign off Denies any more abdominal pain (2) Elevated LFTs: (3) Chills: Plan: Patient is 87-year-old female with PMH iron deficiency anemia, HTN, dyslipidemia, hypothyroidism, CKD III, DM II, aortic stenosis s/p TAVR 04/2023, 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 In ER afebrile, vital stable. WBC: 12. T. bili: 1.1, AST: 549 (was 25 and 12/25), ALT: 290 (was 16 on 12/25), alk phos: 154 (82 in 12/25). CT abdomen pelvis: 1. No bowel obstruction. No bowel wall thickening. Normal appendix. 2. Moderate dilatation of the common bile duct, slightly increased since prior CT and MRI. Findings could be correlated with obstructive liver function tests. Wall thickening and enhancement of the biliary tree. This is nonspecific however cholangitis is within the differential. Subtle stranding adjacent to the liver/kim hepatis, as described above. Cholelithiasis. Contracted gallbladder. No evidence for acute cholecystitis. 3. Chronic diverticulosis. No evidence for acute diverticulitis. Acute cholangitis No recurrent chills or nausea or abdominal pain. Patient currently asymptomatic In ER given IVF, Zosyn, Zofran ER physician contacted on-call GI here who was unable to perform ERCP and recommended transfer. ER physician called [facility] for potential transfer for ERCP. Per epic notes [facility] stated that since patient is not septic and critically ill an emergent ERCP would not be completed tonight and recommended patient can get ERCP here tomorrow. If ERCP is not possible at this facility or patient decompensates to call back for consideration of transfer. Blood cultures (obtained after initial IV antibiotics given) NPO IVF, IV Zosyn,IV Tylenol, IV morphine prn pain Appreciate GI input and recommendation for ERCP today Patient is symptomatically better Awaiting blood cultures-blood cultures have been negative Status post ERCP-biliary sphincterotomy with placement up common bile duct stent and prophylactic pancreatic stent ERCP showed-gastritis, antral ulcer- nonbleeding and choledocholithiasis She will be given clears orally today and will be kept n.p.o. after midnight tomorrow Schedule for robotic cholecystectomy on 06/14 for cholecystectomy tomorrow continue IV Zosyn (4) Elevated troponin: Plan: Minimally elevated troponin at 15. Doubt ACS Denies chest pain, shortness of breath EKG Q waves anterior leads and T wave changes inferior leads, these were compared to EKG in 2021 and appears similar per my interpretation Will repeat troponin and EKG in a.m. 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 Baseline 1.3-1.5 Monitor renal functions, avoid nephrotoxic agents when possible Creatinine remains stable at 1.3 (9) HTN (hypertension): Plan: Stable on Metoprolol and Lisinopril (10) Type 2 diabetes mellitus: Plan: A1c: 7.1 on 04/20/2023 Currently diet controlled Monitor BSG's NovoLog sliding scale correction only at this time while n.p.o. (11) Hyperlipidemia: Plan: Hold atorvastatin while n.p.o. (12) Aortic stenosis: Plan: [place] [facility] [place] any cardiac symptoms Appreciate cardiology input and recommendation (13) Hypothyroidism: Plan: Levothyroxine 100 mcg (14) Iron deficiency anemia: Plan: Hgb: 11. Baseline 11-12 Monitor H&H (15) GERD (gastroesophageal reflux disease): Plan: Convert oral PPI to IV while npo DVT Prophylaxis SCDs for now Full Code as per discussion with pt Admission and Anticipated Discharge Date Admission Date: June 11, 2023 Subjective ff up for acute cholangitis, etc seen resting in bed, comfortable states she feels fine overall no abdominal pain, nausea/vomiting, fever/chills, etc no chest pain, dyspnea, palpitations, dizziness no other symptoms Review of Systems Review of Systems: all noted and negative except for above Physical Exam Physical Exam: General- oriented x 3, not in distress, speaks in sentences with no effort or accessory muscle use Eyes- anicteric Neck- no JVD Lungs- clear breath sounds bilaterally, no rales/wheezes Heart- normal rate, regular rhythm; no murmurs Abdomen- normal bowel sounds, nondistended, soft, nontender Extremities- no pretibial edema, no calf tenderness Neuro- alert, oriented x 3; no gross focal neurologic deficits Skin- warm & dry Results & Data Results & Data Vital Signs (Past 12 Hours) Vital Signs Temp Pulse Pulse Resp BP BP Pulse Ox 06/14/23 14:13 67 06/14/23 11:07 36.7 C 64 18 149/99 H 95 06/14/23 07:50 36.6 C 68 19 154/81 H 95 06/14/23 07:00 62 O2 Del Method 06/14/23 14:13 06/14/23 11:07 Room Air 06/14/23 07:50 Room Air 06/14/23 07:00 all noted and reviewed including below
[2023-06-14] MEDS ORDERED: SIMETHICONE 80 MG CHEW PO ONE (20:52)
[2023-06-15] MEDS: PIPERACILLIN/TAZOBACTAM 4.5 GM in DEXTROSE 5% MINI-B 100 ML IV SCH ×3 (06:12→23:45)
--- NOTE | 2023-06-15 07:08 | Anesthesiology Consultation ---
Date of Service June 15, 2023 Assessment & Plan Chart Review Chart Review: watch band assembler initiated History Surgery Operation Date: 06/13/23 11:15 Proposed Procedures p Endoscopic Retrograde Cholangiopancreatogram - Stiven Nickerson DO s Endoscopic Ultrasonography Upper - Stiven Nickerson DO Operation Date: 06/15/23 12:30 Proposed Procedures p Robotic Laparoscopic Cholecystectomy - Jesse Walsh DO, FACS Height/Weight Height: 5 ft 2 in Weight: 85.8 kg Allergies Allergy/AdvReac Type Severity Reaction Status Date / Time bee venom protein (honey bee) Allergy Intermediate SWELLING Verified 06/11/23 19:30 Sulfa (Sulfonamide Allergy Intermediate RASH Verified 06/11/23 19:30 Antibiotics) Medications Home Medications Medication Instructions Recorded Confirmed Last Taken ascorbic acid (vitamin C) 500 mg 500 mg PO QAM 12/16/20 06/11/23 11/15/21 08:00 tablet (Vitamin C) atorvastatin 20 mg tablet 20 mg PO QAM 12/16/20 06/11/23 06/11/23 levothyroxine 100 mcg tablet 100 mcg PO QAM 12/16/20 06/11/23 06/11/23 lisinopril 40 mg tablet 40 mg PO QAM 12/16/20 06/11/23 06/11/23 metoprolol tartrate 25 mg tablet 25 mg PO BID 12/16/20 06/11/23 06/11/23 multivitamin 1 tab PO QAM 12/16/20 06/11/23 11/15/21 08:00 omeprazole 40 mg capsule,delayed 40 mg PO QAM 12/16/20 06/11/23 06/11/23 release octreotide acetate 50 mcg/mL 50 mcg subcut UD 10/29/21 06/11/23 10/23/21 injection solution (Sandostatin) acetaminophen 500 mg capsule 1,000 mg PO TID PRN Pain 06/11/23 06/11/23 Unknown aspirin 81 mg tablet,delayed 81 mg PO DAILY 06/11/23 06/11/23 Unknown release (Fransisca Low Dose Aspirin) cholecalciferol (vitamin D3) 10 400 mcg PO DAILY 06/11/23 06/11/23 Unknown mcg (400 unit) tablet (Vitamin D3) furosemide 20 mg tablet 20 mg PO DAILY 01/07/24 01/07/24 01/07/24 hydrocodone 5 mg-acetaminophen 325 1 tab PO Q6H PRN moderate-severe 06/11/23 06/11/23 Unknown mg tablet pain Active Medications Generic Name Dose Route Start Last Admin Trade Name Yovani PRN Reason Stop Dose Admin Aspirin 81 mg 06/12/23 13:00 06/14/23 08:32 Aspirin 81 Mg Ectab PO 07/12/23 12:59 81 mg QAM SG Administration Piperacillin Sod/Tazobactam 100 mls @ 25 mls/hr 06/11/23 23:00 06/15/23 06:12 Sod 4.5 gm/ Dextrose IV 06/21/23 22:59 25 mls/hr Q8H SG Administration Protocol Pantoprazole Sodium 40 mg/ 10 mls @ 5 mls/min 06/12/23 11:00 06/14/23 10:23 Syringe IV 07/12/23 10:59 5 mls/min DAILY@1100 SG Administration Insulin Aspart 0 units 06/13/23 17:32 06/14/23 20:44 Insulin Aspart Per Unit Charge SC 07/13/23 05:59 Not Given ACHS SG Lisinopril 40 mg 06/14/23 09:00 06/14/23 08:32 Lisinopril 40 Mg Tab PO 07/14/23 08:59 40 mg QAM SG Administration Metoprolol Tartrate 25 mg 06/12/23 13:00 06/14/23 20:53 Metoprolol Tartrate 25 Mg Tab PO 07/12/23 12:59 25 mg BID SG Administration NPO Date Last Intake of Fluids: 06/13/23 Time Last Intake of Fluids: 08:40 Last Intake of Fluids Comment: sip with med Date Last Intake of Solids: 06/11/23 Time Last Intake of Solids: 07:00 Past Medical History Medical History Iron deficiency anemia following with [facility] heme/onc Encounter for pre-operative examination Primary neuroendocrine carcinoma of duodenum following with [facility] heme/onc Primary pancreatic neuroendocrine tumor following with [facility] heme/onc Aortic stenosis mild to moderate CKD (chronic kidney disease) stage 3, GFR 30-59 ml/min Cr 1.3-1.7 over past 7 months Type 2 diabetes mellitus NIDDM Hypothyroidism Hyperlipidemia Hypertension controlled, stable per pt History of bleeding ulcers >3.5 YRS AGO Myocardial Infarction silent LA per pt, denies when first detected Pacemaker d/t bradycardia/syncope, [employer], follows with [facility] cardio History of COVID-19 05/24- [place], no other symptoms, no hospitalization Sensorineural hearing loss (SNHL) of both ears Past Family History Family History Other Allergies No family history of bleeding disorder Denies family history of Hearing loss Heart disease Cancer Hypertension Stroke Asthma Past Surgical History Surgical History S/P colonoscopy Hx of esophagogastroduodenoscopy Previous back surgery >11 YEARS AGO- [facility] [place]: pt states upon induction felt "unusual" (unable to further describe) and woke up with rotary drill operator and anesthesiologist checking on her-suspects was bradycardia prior to pacemaker placement; reports no additional issues/episodes; no available records History of cardiac cath >10 YRS AGO- [facility] [place]- DOES NOT REMEMBER WHY- NO STENT History of knee replacement BILAT Social History Smoking Status: Never smoker Do You Dip or Chew Tobacco: No Hx Alcohol Use: No Hx Substance Use: No substance use type: does not use Physical Exam Vital Signs Last Vital Signs Temp 97.9 F 06/15/23 04:00 Pulse 60 06/15/23 04:00 Resp 18 06/15/23 04:00 BP 182/79 H 06/15/23 04:00 Pulse Ox 95 06/15/23 04:00 O2 Del Method Room Air 06/15/23 04:00 O2 Flow Rate 3 06/13/23 12:35 Testing Laboratory Results 06/14/23 06:16 06/14/23 06:16 Urine Color Yellow 06/11/23 13:33 Urine Appearance Clear (Clear) 06/11/23 13:33 Urine pH 6.0 (4.5-7.5) 06/11/23 13:33 Ur Specific [place] 1.015 (1.000-1.030) 06/11/23 13:33 Urine Protein Negative (Negative) 06/11/23 13:33 Urine Glucose (UA) Negative (Negative) 06/11/23 13:33 Urine Ketones Negative (Negative) 06/11/23 13:33 Urine Nitrite Negative (Negative) 06/11/23 13:33 Ur Leukocyte Esterase Negative (Negative) 06/11/23 13:33 06/11/23 20:59 Aerobic Blood Culture - Preliminary Blood No growth in Aerobic bottle after 48 hours. Anaerobic Blood Culture - Preliminary No growth in Anaerobic bottle after 48 hours. 06/11/23 20:56 Aerobic Blood Culture - Preliminary Blood No growth in Aerobic bottle after 48 hours. Anaerobic Blood Culture - Preliminary No growth in Anaerobic bottle after 48 hours. 06/15/23 06/14/23 05:59 20:29 POC Glucose 143 H 101 H Electrocardiogram Date: 06/11/23 Atrial electronic pacing with prolonged AV conduction, rate 77 bpm Inferior infarct (cited on or before 11-JUN-2023) Possible Old Inferior infarct Abnormal ECG When compared with ECG of 08-JAN-2020 11:40, Borderline Criteria for Inferior infarct now present Confirmed by Ranjan Lazo ([id number]) on 06/12/2023 8:30:42 AM Chest X-Ray Date: 06/11/23 FINDINGS: A left subclavian pacer, prosthetic aortic valve and lumbar spine fusion hardware is incidentally noted. No pneumothorax or pleural effusion is present. Cardiomegaly is unchanged. No evidence for pulmonary edema. There is no consolidation to suggest pneumonia. There has been no change in appearance of the chest. IMPRESSION: No acute cardiopulmonary findings. No change in appearance of the chest. Echocardiogram Date: 11/09/20 LV wall thickness is moderately increased LV wall motion is normal LV EF 55-59% LV diastolic dysfunction grade 1 AV is mod calcified Mild to mod Proximal ascending thoracic aorta is mildly enlarged
[2023-06-15] MEDS: INSULIN ASPART PER UNIT CHARGE SC SCH ×4 (07:14→20:24)
--- NOTE | 2023-06-15 07:31 | Cardiology Progress Note ---
Date of Service June 15, 2023 Assessment & Plan (1) Acute cholangitis: (2) Preop cardiovascular exam: (3) HTN (hypertension): (4) S/P TAVR (transcatheter aortic valve replacement): Plan Impression: 87-year-old female who was initially admitted to [facility] with abdominal pain and vomiting for 24 hours. Diagnosed with acute cholangitis. Plan: Acute cholangitis: Underwent ERCP 06/13/2023. Received stent for choledocholithiasis. Plans for lap tricia today, 06/15/2023. Management and care per primary team. Patient stable from a cardiac perspective for lap tricia. No further cardiac testing warranted at this time Hypertension: Patient's BP has been high since admission. Strong situational component. Lisinopril increased to 40 mg. Continue metoprolol 25 mg BID-- consider transitioning to Coreg vs addition of low dose Norvasc, will reassess post surgery. Treat severe aortic stenosis status post TAVR: Patient is s/p TAVR in Apr 2023. Echo with preserved LVEF and normal gradients of TAVR in May 2023. Needs to stay on ASA 81 mg daily Case discussed with Dr. Sparks I spent a total of 30 minutes on the date of service in preparation, delivery, and documentation of the care provided to the patient excluding any time spent in the performance of separately billed services. ISHAAN Herrera Department of Cardiology, [facility] This chart was completed in part utilizing Speech Voice Recognition Software. Grammatical errors, random word insertions, pronoun errors, and incomplete sentences are an occasional consequence of this system due to software limitations, ambient noise, and hardware issues. Any formal questions or concerns about the content, text, or information contained within the body of this dictation should be directly addressed to the provider for clarification. Admission and Anticipated Discharge Date Admission Date: June 11, 2023 Supervising Physician Co-Signing Physician Notes Case discussed with ISHAAN Woodard. Pt in OR when I was rounding and therefore not examined personally. Agree with findings and plans as outlined. Luana Sparks , DO Subjective 87-year-old female who was initially admitted to [facility] with abdominal pain and vomiting for 24 hours. Diagnosed with acute cholangitis. Upon admission LFTs were elevated. CT of the abdomen and pelvis demonstrated cholelithiasis and moderate CBD dilation. General surgery consulted. Underwent ERCP on 06/13/2023. Received stent for choledocholithiasis. Plans for lap tricia today, 06/15/2023. Blood pressures elevated this admission. [place] to be situational. Lisinopril was increased to 40 mg daily and metoprolol was continued at 25 mg twice daily. Patient is status post TAVR 04/2023. Aspirin continued. 06/15/2023: Upon entrance into the room patient resting comfortably in bed. No acute concerns. Noted some gas pains in her abdomen this evening. No chest pain or shortness of breath. No palpitations or lightheadedness. Eager for surgery-- planned for later this morning/early afternoon. Review of Systems Review of Systems: All systems reviewed & are unremarkable except as noted in HPI & below Physical Exam Constitutional: WD/WN, vitals as above well developed; no acute distress Respiratory: normal respiratory effort, lungs clear to auscultation Cardiovascular: Rate/Rhythm: regular rate and regular rhythm Heart Sounds: + murmur (II/ systolic murmur LSB) Neurologic: PERRL, EOMI, accommodation nl, no face palsy, no dysarthria Results & Data Vital Signs (Past 12 Hours) Vital Signs Temp Pulse Pulse Resp BP Pulse Ox O2 Del Method 06/15/23 04:00 36.6 C 60 18 182/79 H 95 Room Air 06/14/23 22:00 36.5 C 61 20 170/82 H 95 Room Air 06/14/23 21:57 65 Laboratory Results Intake and Output 06/14/23 06/15/23 06/15/23 22:59 06:59 14:59 Intake Total 950 / 1150 100 / 1150 100 / 100 Balance 950 / 1150 100 / 1150 100 / 100 Intake: IV 100 / 300 100 / 300 100 / 100 Acetaminophen 1,000 mg In 100 100 / 100 ml @ 400 mls/hr IV Q8H PRN Rx#: [id number] Piperacillin/Tazobactam 4.5 gm 100 / 300 100 / 300 In Dextrose 5% Mini-B 100 ml @ 25 mls/hr IV Q8H SG Rx#: [id number] Oral 850 / 850 Other: Other Intake Source NPO Weight 85.8 kg 85.8 kg Patient Weight 06/16/23 06:59 Weight 85.8 kg
[2023-06-15] MEDS ORDERED: ACETAMINOPHEN 1,000 MG/100 ML VIAL IV PRN (07:57)
[2023-06-15] MEDS: lisinopril 40 MG TAB PO SCH (07:58)
[2023-06-15] MEDS: ASPIRIN 81 MG ECTAB PO SCH (07:58)
[2023-06-15] MEDS: METOPROLOL TARTRATE 25 MG TAB PO SCH ×2 (07:58→20:29)
[2023-06-15] MEDS: PANTOprazole 40 MG in SYRINGE 0 ML IV SCH (10:49)
--- NOTE | 2023-06-15 11:09 | Hospitalist Progress Note ---
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 In ER afebrile, vital stable. WBC: 12. T. bili: 1.1, AST: 549 (was 25 and 12/25), ALT: 290 (was 16 on 12/25), alk phos: 154 (82 in 12/25). CT abdomen pelvis: 1. No bowel obstruction. No bowel wall thickening. Normal appendix. 2. Moderate dilatation of the common bile duct, slightly increased since prior CT and MRI. Findings could be correlated with obstructive liver function tests. Wall thickening and enhancement of the biliary tree. This is nonspecific however cholangitis is within the differential. Subtle stranding adjacent to the liver/kim hepatis, as described above. Cholelithiasis. Contracted gallbladder. No evidence for acute cholecystitis. 3. Chronic diverticulosis. No evidence for acute diverticulitis. No recurrent chills or nausea or abdominal pain. Patient currently asymptomatic In ER given IVF, Zosyn, Zofran ER physician contacted on-call GI here who was unable to perform ERCP and recommended transfer. ER physician called [facility] for potential transfer for ERCP. Per epic notes [facility] stated that since patient is not septic and critically ill an emergent ERCP would not be completed tonight and recommended patient can get ERCP here tomorrow. If ERCP is not possible at this facility or patient decompensates to call back for consideration of transfer. Blood cultures (obtained after initial IV antibiotics given) NPO IVF Zosyn IV Tylenol, IV morphine prn pain Monitor closely. If patient recurrent severe pain or clinically worsening plan to transfer for consideration emergent ERCP GI consult CBC, CMP, lipase in a.m. 06/15 for Cholecystectomy today continue IV Zosyn (4) Elevated troponin: Plan: Minimally elevated troponin at 15. 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 Baseline 1.3-1.5 Monitor renal functions, avoid nephrotoxic agents when possible (9) HTN (hypertension): Plan: Stable on PO Metoprolol and Lisinopril (10) Type 2 diabetes mellitus: Plan: A1c: 7.1 on 04/20/2023 Currently diet controlled Monitor BSG's NovoLog sliding scale correction only at this time while n.p.o. (11) Hyperlipidemia: Plan: Atorvastatin on hold (12) Aortic stenosis: Plan: S/P TAVR in 04/2023 at [facility] (13) Hypothyroidism: Plan: resume Levothyroxine tomorrow (14) Iron deficiency anemia: Plan: Hgb: 11. Baseline 11-12 Monitor H&H (15) GERD (gastroesophageal reflux disease): Plan: Convert oral PPI to IV while npo DVT Prophylaxis SCDs for now Full Code as per discussion with pt Follows with Dr Chelsey Mitchell for routine care Admission and Anticipated Discharge Date Admission Date: June 11, 2023 Subjective ff up for acute cholangitis, cholelithiasis, etc seen resting in bed, comfortable, not in distress was having upper quadrant pain earlier attributes to coughing last night improved during exam no chest pain, dyspnea, palpitations, dizziness no other new symptoms Review of Systems Review of Systems: all noted and negative except for above Physical Exam Physical Exam: General- oriented x 3, not in distress, speaks in sentences with no effort or accessory muscle use Eyes- anicteric Neck- no JVD Lungs- clear breath sounds bilaterally, no rales/wheezes Heart- normal rate, regular rhythm; no murmurs Abdomen- normal bowel sounds, nondistended, soft, nontender Extremities- no pretibial edema, no calf tenderness Neuro- alert, oriented x 3; no gross focal neurologic deficits Skin- warm & dry Results & Data Results & Data Vital Signs (Past 12 Hours) Vital Signs Temp Pulse Pulse Resp BP Pulse Ox O2 Del Method 06/15/23 08:01 36.9 C 67 18 180/75 H 97 Room Air 06/15/23 07:41 64 06/15/23 04:00 36.6 C 60 18 182/79 H 95 Room Air all noted and reviewed including below
[2023-06-15] MEDS ORDERED: fentaNYL citrate PF 100 MCG/2 ML VIAL ONE (12:45)
[2023-06-15] MEDS ORDERED: LACTATED RINGER'S 1,000 ML IV SCH (13:15)
--- NOTE | 2023-06-15 13:16 | Surgery Progress Note ---
Date of Service June 15, 2023 Assessment & Plan (1) Cholelithiases: Plan: Choledocholithiasis with cholangitis status post ERCP, with acute on chronic cholecystitis plan for robotic assisted laparoscopic cholecystectomy risks discussed to include but not limited to bleeding, infection, retained stone, bile leak, open surgery, damage to surrounding structures including bile duct, need for future or more extensive surgery, failure to treat symptoms, and risks of anesthesia. (2) Acute cholangitis: Admission and Anticipated Discharge Date Admission Date: June 11, 2023 Subjective Status post ERCP with cholelithiasis and evidence of moderate cholecystitis. N.p.o. after midnight. No changes overnight. Physical Exam Constitutional: WD/WN, vitals as above Gastrointestinal (Abdomen): normal bowel sounds, soft, nontender, no hepatosplenomegaly Results & Data Vital Signs (Past 12 Hours) Vital Signs Temp Pulse Pulse Resp BP Pulse Ox O2 Del Method 06/15/23 13:05 36.8 C 64 24 201/96 H 92 Room Air 06/15/23 11:41 36.8 C 62 20 168/80 H 96 Room Air 06/15/23 08:01 36.9 C 67 18 180/75 H 97 Room Air 06/15/23 07:41 64 06/15/23 04:00 36.6 C 60 18 182/79 H 95 Room Air PG Care Time/CCT Total # of Minutes Spent Total Time Spent with Patient: Total time spent is greater than 50% in coordination of care (as documented) at patient's floor/unit and/or counseling patient: Coding Level of Care Code 56739 SUB INP/OBS CARE 2/35MIN Diagnoses Calculus of gallbladder and bile duct with acute on chronic cholecystitis, with obstruction K80.67 Cholelithiasis location: gallbladder and bile duct Cholecystitis presence: with cholecystitis Cholecystitis acuity: acute and chronic Biliary obstruction: with biliary obstruction Acute cholangitis K83.09 (1) Cholelithiases Cholelithiasis location: gallbladder and bile duct Cholecystitis presence: with cholecystitis Cholecystitis acuity: acute and chronic Biliary obstruction: with biliary obstruction Qualified Code(s): K80.67 - Calculus of gallbladder and bile duct with acute and chronic cholecystitis with obstruction
[2023-06-15] MEDS ORDERED: fentaNYL citrate PF 100 MCG/2 ML VIAL IV PRN (13:20)
[2023-06-15] MEDS ORDERED: ePHEDrine sulfate 50 MG/ML AMP IV PRN (13:20)
[2023-06-15] MEDS ORDERED: ONDANSETRON INJ 2 MG/ML 2 ML VIAL IV PRN (13:20)
[2023-06-15] MEDS ORDERED: ATROPINE SULFATE 0.1 MG/ML 10ML SYR IV PRN (13:20)
[2023-06-15] MEDS ORDERED: BUPIVACAINE 0.5 % 5 MG/1 ML MPF 30ML VIAL ONE (14:16)
[2023-06-15] MEDS ORDERED: INDOCYANINE GREEN 25 MG VIAL INJ ONE (14:24)
[2023-06-15] MEDS ORDERED: PROPOFOL IV EMULSION 10 MG/ML 20 ML VIAL IV ONE (14:57)
[2023-06-15] MEDS ORDERED: LARYING-O-JET KIT (LTA) ONE (14:57)
[2023-06-15] MEDS ORDERED: ROCURONIUM BROMIDE 10 MG/ML 5 ML VIAL IV ONE (14:57)
[2023-06-15] MEDS ORDERED: ONDANSETRON INJ 2 MG/ML 2 ML VIAL ONE (14:57)
[2023-06-15] MEDS ORDERED: LIDOCAINE 2% 2 ML VIAL/AMP(20MG/ML) INFIL ONE (14:57)
[2023-06-15] MEDS ORDERED: SUGAMMADEX SODIUM 200 MG/2 ML VIAL IV ONE (15:52)
--- NOTE | 2023-06-15 16:00 | Operative Report ---
PG Post Operative Report Pre & Post Diagnosis Operation Date: 06/15/23 12:30 Pre-Op Diagnosis: Cholelithiases, history of choledocholithiasis Post-Op Diagnosis: Cholelithiases with acute on chronic cholecystitis, history of choledocholithiasis I identified the patient and participated in the time-out.: Yes Procedure Operation Date: 06/15/23 12:30 Actual Procedures p Robotic Laparoscopic Cholecystectomy(Not Applicable) - Jesse Walsh DO, [facility] Surgeon Jesse Walsh DO, [facility] Manufacturing Scheduler Marilee Howard Estimated Blood Loss 5 Findings Consistent with Post-Op Diagnosis Chronically contracted gallbladder and dilated cystic duct. Critical view of safety obtained, cystic duct and artery doubly clipped and divided. Good hemostasis. Specimens Gallbladder Anesthesia Type General Complications none Disposition Accompanied Patient To Recovery: No Disposition: Recovery Room Indications 87-year-old female with history of pancreatic neuroendocrine tumor with admission for suspected choledocholithiasis status post ERCP, plan for robotic cholecystectomy. The risks of the procedure were discussed, all questions were answered, and the patient agreed to proceed with surgery as planned. Description of Procedure The patient was properly identified, consented, and taken to the operating room where she was placed in the supine position. 2.5 mg of indocyanine green were administered IV approximately 45 min prior to the surgery. General endotracheal anesthesia was induced. SCDs and a safety belt were placed. Preoperative antibiotics were administered. The patient's abdomen was prepped and draped in the standard sterile fashion. A surgical timeout was performed and all parties were in agreement that this was the correct patient and procedure to be performed and we continued as planned. An incision was made just above the umbilicus and to the left of midline. Veress needle was inserted and saline drop test confirmed entry to the abdomen. The abdomen was insufflated with carbon dioxide which the patient tolerated incident. Veress needle was removed and the abdomen is entered using the Optiview technique and a 5 mm camera. The introducer was removed and the abdomen inspected. No damage from initial trocar placement or Veress needle placement was identified. There were no significant abnormalities to the 4 quadrants of the abdomen. 8 mm robotic ports were then placed on the left and right. An additional 5 mm engineer third assistant port was placed in the lateral right subcostal position. The patient was placed in reverse Trendelenburg position and rotated towards the left. The robot was then docked and the camera and robotic instruments were inserted. The gallbladder was chronically contracted with multiple stones. Showed signs of moderate to severe acute on chronic cholecystitis. The dome of the gallbladder was grasped by the engineer third assistant and retracted towards the left upper quadrant and the infundibulum was retracted toward the right lower quadrant revealing Calot's triangle. Adhesions of the stomach were taken down with electrocautery peritoneal attachments were taken down with electrocautery and blunt dissection. The cystic duct and artery were circumferentially dissected. A window of safety was obtained showing the cystic duct entering the gallbladder with no aberrant structures noted. We were able to identify the common bile duct utilizing the ICG. The cystic duct and artery were doubly clipped and divided. The cystic duct was dilated but the 2 clips appeared to close around the cystic duct and fully attached. The gallbladder was then lifted off the gallbladder fossa with electrocautery. The right upper quadrant was irrigated and hemostasis was found to be good. The gallbladder was placed in an Endo Catch bag and removed through the one of the port sites. The instruments were removed and the robot was undocked. The trochars were removed and the abdomen was allowed to collapse. The skin of all ports was closed with 4-0 Monocryl subcuticular sutures. Dermabond was placed over the wounds. The patient was extubated in the operating room and taken to the PACU where she recovered without apparent incident. All sponge, instrument and needle counts were correct at the conclusion of the procedure. The patient tolerated the procedure well. The physician's engineer third assistant was present and scrubbed for the entirety of the case and was essential in positioning the patient, prepping and draping, retraction and exposure, driving the laparoscope, exchange of the robotic instruments removal of the gallbladder, closure of the incisions, and placement of the dressings. I attest to the content of the Intraoperative Record and any orders documented therein. Any exceptions are noted below.
[2023-06-15] MEDS ORDERED: MoRPHine SULFATE 4 MG/ML 1 ML CARP\\VIAL IV PRN (17:06)
[2023-06-15] MEDS ORDERED: oxyCODONE HCL IR 5 MG TAB (IMMEDIATE RELEASE) PO PRN ×2 (17:06)
--- NOTE | 2023-06-15 17:20 | Anesthesiology Progress Note ---
Date of Service June 15, 2023 Anesthesia Post Procedure Vital Signs Vital Signs: Temp Pulse Pulse Pulse Resp BP BP 06/15/23 17:11 62 06/15/23 17:08 36.5 C 70 18 184/94 H 06/15/23 16:40 60 20 176/82 H 06/15/23 16:30 60 20 179/82 H 06/15/23 16:20 60 20 187/85 H 06/15/23 16:10 36.1 C L 60 16 204/82 H 06/15/23 13:05 36.8 C 64 24 201/96 H 06/15/23 11:41 36.8 C 62 20 168/80 H 06/15/23 08:01 36.9 C 67 18 180/75 H 06/15/23 07:41 64 06/15/23 04:00 36.6 C 60 18 182/79 H 06/14/23 22:00 36.5 C 61 20 170/82 H 06/14/23 21:57 65 06/14/23 19:00 36.5 C 76 20 159/88 H Pulse Ox O2 Del Method O2 Flow Rate 06/15/23 17:11 06/15/23 17:08 93 Room Air 06/15/23 16:40 95 Nasal Cannula 2 06/15/23 16:30 95 Nasal Cannula 2 06/15/23 16:20 94 Oxymask 2 06/15/23 16:10 93 Oxymask 6 06/15/23 13:05 92 Room Air 06/15/23 11:41 96 Room Air 06/15/23 08:01 97 Room Air 06/15/23 07:41 06/15/23 04:00 95 Room Air 06/14/23 22:00 95 Room Air 06/14/23 21:57 06/14/23 19:00 95 Room Air Pain Intensity Head: Pain Intensity: 4 Abdomen: Pain Intensity: 4 Transfer of Care Handoff Completed per policy Notes Mental Status: alert / awake / arousable Patient Amnestic to Procedure: Yes Nausea / Vomiting: adequately controlled Pain: adequately controlled Airway Patency, RR, SpO2: stable & adequate BP & HR: stable & adequate Hydration State: stable & adequate Anesthetic Complications: no major complications apparent
[2023-06-15] MEDS: LACTATED RINGER'S 1,000 ML IV SCH (17:23)
[2023-06-15] MEDS: hydrALAZINE HCL 20 MG/ML VIAL IV PRN (17:56)
[2023-06-16] MEDS ORDERED: COUGH DROP (SUGAR FREE) LOZ 24 LOZ/1 BOX BUCCAL PRN (02:21)
[2023-06-16] MEDS: hydrALAZINE HCL 20 MG/ML VIAL IV PRN (05:47)
[2023-06-16 06:43] LABS: Basophils # (auto) 0.03 K/uL (0.00-0.20); Basophils % (auto) 0.3 %; Eosinophils # (auto) 0.11 K/uL (0.00-0.50); Hematocrit (blood only) 33.9 % (37.0-47.0); Hemoglobin 10.5 g/dl (12.0-16.0); Immature Granulocytes # (auto) 0.05 K/uL (0.01-0.20); Immature Granulocytes % (auto) 0.5 %; Lymphocytes # (auto) 0.62 K/uL (1.20-3.40); Lymphocytes % (auto) 5.8 %; Mean Corpuscular Hemoglobin 27.3 pg (25.0-34.0); Mean Corpuscular Volume 88.3 fL (80.0-100.0); Mean Platelet Volume 10.8 fL (9.4-12.4); Monocytes # (auto) 0.89 K/uL (0.11-0.59); Monocytes % (auto) 8.3 %; Neutrophils # (auto) 9.02 K/uL (1.40-6.50); Neutrophils % (auto) 84.1 %; Platelet Count 131 K/uL (130-400); RDW Coefficient of Variation 14.4 % (11.5-14.5); RDW Standard Deviation 45.8 fL (36.4-46.3); Red Blood Count 3.84 M/uL (4.20-5.40); White Blood Count 10.72 K/ul (4.8-10.8)
[2023-06-16 07:27] LABS: Albumin Level 3.4 gm/dl (3.4-5.0); Bilirubin,Total 0.9 mg/dl (0.2-1.0); Calcium 8.9 mg/dl (8.6-10.3); Potassium 3.4 mmol/L (3.5-5.1)
[2023-06-16 07:33] LABS: Albumin Globulin Ratio 1.3 (0.9-2); BUN Creatinine Ratio 13.8 (10-20); Creatinine Clr Calc Pharmacy 36.3 ml/min; Est GFR (African American) 49.7 ml/min; Est GFR (Non-African American) 42.9 ml/min; Globulin 2.7 gm/dl (2.5-4.0); Total Protein 6.1 gm/dl (6.0-8.3)
--- NOTE | 2023-06-16 08:17 | Surgery Progress Note ---
Date of Service June 16, 2023 Assessment & Plan (1) Cholelithiases: Plan: POD#1 robot lap tricia WBC 10.7, Hbg 10 Expected elise incisional discomfort, but manageable No n/v. + Bms Will advance diet this AM F/u in clinic within [address] Walsh upon discharge Dispo planning per medicine, okay from surgical standpoint Admission and Anticipated Discharge Date Admission Date: June 11, 2023 Supervising Physician Co-Signing Physician Notes Patient seen examined, labs reviewed, agree with above. POD #1 robotic cholecystectomy with recent ERCP for choledocholithiasis. Doing well, minimal pain, tolerating diet so far. Afebrile stable vitals, abdomen soft, nontender, nondistended. Labs unremarkable. Okay to DC from general surgery standpoint once tolerating regular diet. Follow-up in general surgery clinic in 2 weeks. Wound care instructions, activity restrictions, and return precautions reviewed, call with questions or concerns Subjective Patient feeling fairly well. Reports some post surgical discomfort, but manageable with pain meds. Worse when she coughs. Tolerating clears, no n/v. + BMs Physical Exam Physical Exam: awake/alert, no distress Gastrointestinal (Abdomen): Inspection/Auscultation: + abdominal surgical incision (c/d/i with skin glue, no signs of infection); abdomen not distended Percussion/Palpation: + abdomen tender (expected elise incisional discomfort to palpation) and abdomen soft Results & Data Vital Signs (Past 12 Hours) Vital Signs Temp Pulse Pulse Resp BP BP Pulse Ox 06/16/23 07:41 37.7 C H 68 18 150/82 H 95 06/16/23 06:00 154/79 H 06/16/23 05:44 185/92 H 06/16/23 04:27 37.4 C 63 18 177/102 H 92 06/16/23 00:19 36.7 C 67 18 188/85 H 96 06/15/23 21:57 61 O2 Del Method 06/16/23 07:41 Room Air 06/16/23 06:00 06/16/23 05:44 06/16/23 04:27 Room Air 06/16/23 00:19 Room Air 06/15/23 21:57 PG Care Time/CCT Total # of Minutes Spent Total Time Spent with Patient: Total time spent is greater than 50% in coordination of care (as documented) at patient's floor/unit and/or counseling patient: Coding Level of Care Code 90112 Post Operative Follow-Up Diagnoses Calculus of gallbladder and bile duct with acute on chronic cholecystitis, with obstruction K80.67 Biliary obstruction: with biliary obstruction Cholecystitis acuity: acute and chronic Cholecystitis presence: with cholecystitis Cholelithiasis location: gallbladder and bile duct (1) Cholelithiases Biliary obstruction: with biliary obstruction Cholecystitis acuity: acute and chronic Cholecystitis presence: with cholecystitis Cholelithiasis location: gallbladder and bile duct Qualified Code(s): K80.67 - Calculus of gallbladder and bile duct with acute and chronic cholecystitis with obstruction
[2023-06-16] MEDS: PIPERACILLIN/TAZOBACTAM 4.5 GM in DEXTROSE 5% MINI-B 100 ML IV SCH (08:37)
[2023-06-16] MEDS: ASPIRIN 81 MG ECTAB PO SCH (08:37)
[2023-06-16] MEDS: lisinopril 40 MG TAB PO SCH (08:37)
[2023-06-16] MEDS: METOPROLOL TARTRATE 25 MG TAB PO SCH (08:37)
[2023-06-16] MEDS: PANTOprazole 40 MG in SYRINGE 0 ML IV SCH (08:37)
[2023-06-16] MEDS: LACTATED RINGER'S 1,000 ML IV SCH (08:38)
[2023-06-16] MEDS: INSULIN ASPART PER UNIT CHARGE SC SCH ×4 (10:07→21:48)
--- NOTE | 2023-06-16 12:32 | Cardiology Progress Note ---
Date of Service June 16, 2023 Assessment & Plan (1) Acute cholangitis: (2) HTN (hypertension): (3) S/P TAVR (transcatheter aortic valve replacement): Plan Impression: 87-year-old female who was initially admitted to [facility] with abdominal pain and vomiting for 24 hours. Diagnosed with acute cholangitis. Plan: Acute cholangitis: Underwent ERCP 06/13/2023. Received stent for choledocholithiasis. Underwent lap tricia today, 06/15/2023. Management and care per primary team. Patient is doing well from a cardiac standpoint with no concerns that would delay disposition for possible discharge when ok with primary team/surgery. Hypertension: Patient's BP has been high since admission; however, has improved significantly. Continue Lisinopril 40mg QD Continue metoprolol 25 mg BID at this time, but may consider transitioning to Coreg vs addition of low dose Norvasc, pending patients response to activity on day one post op. Treat severe aortic stenosis status post TAVR: Patient is s/p TAVR in Apr 2023. Echo with preserved LVEF and normal gradients of TAVR in May 2023. Needs to stay on ASA 81 mg daily Case has been discussed with Dr. Sparks. Further recommendations regarding plan of care as per his assessment. I spent a total of 30 minutes on the date of service in preparation, delivery, documentation of the care provided to the patient excluding any time spent in the performance of separately billed services. ISHAAN Jones [facility] This chart was completed in part utilizing Speech Voice Recognition Software. Grammatical errors, random word insertions, pronoun errors, and incomplete sentences are an occasional consequence of this system due to software limitations, ambient noise, and hardware issues. Any formal questions or concerns about the content, text, or information contained within the body of this dictation should be directly addressed to the provider for clarification. Admission and Anticipated Discharge Date Admission Date: June 11, 2023 Supervising Physician Co-Signing Physician Notes Attending attestation: I have reviewed the advanced practitioner's documentation and agree with the plan of care. I accept the responsibility for the associated risk of managing the patient. Subjective: Patient feels well. Postoperative pain well-controlled. Blood pressure remains above goal. Exam: His recent blood pressure 147/84 however several high readings overnight Cardiovascular: Regular rhythm, 1/6 systolic murmur, no edema Data: Sinus rhythm with atrial pacing, occasional PVCs Impression/ Plan: --problem list as noted above --Discontinue prior to hospital treatment metoprolol tartrate 25 mg twice daily in favor of carvedilol 6.25 mg twice daily which will be continued at discharge. Stable from cardiology standpoint for discharge whenever surgery gets the greenlight. Cardiology to sign off. Dr Mitchell rounding on 06/17/23, call with questions or concerns. I spent a total of 20 minutes coordinating, documenting, and providing care for this patient excluding time spent in the performance of separately billed s ervices or time spent by another provider. Darrell Sparks, Subjective 06/16/23: patient seen and examined in follow up. Offers no cardiac questions or concerns. Denies any chest pain, pressure or palpitations. Reports sleeping well overnight. Currently dealing with intermittent nausea and poor appetite which she expected as result of the surgery. Review of Telemetry shows Paced with occasional PVC's rates70's, no acute events overnight. Review of Systems Review of Systems: All systems reviewed & are unremarkable except as noted in HPI & below Physical Exam Constitutional: WD/WN, vitals as above well developed and well nourished; no acute distress Neck: normal visual inspection and trachea midline Respiratory: normal respiratory effort, lungs clear to auscultation Cardiovascular: RRR, no murmur, no edema Rate/Rhythm: regular rate and regular rhythm Heart Sounds: + murmur (II/ systolic murmur LSB) Vessels: dorsalis pedis pulses present; no JVD Skin: no rashes, warm and dry Neurologic: PERRL, EOMI, accommodation nl, no face palsy, no dysarthria Psychiatric: A+Ox3, euthymic affect Results & Data Vital Signs (Past 12 Hours) Vital Signs Temp Pulse Pulse Resp BP BP Pulse Ox 06/16/23 12:00 37.1 C 81 18 147/84 H 94 06/16/23 08:00 60 06/16/23 07:41 37.7 C H 68 18 150/82 H 95 06/16/23 06:00 154/79 H 06/16/23 05:44 185/92 H 06/16/23 04:27 37.4 C 63 18 177/102 H 92 O2 Del Method 06/16/23 12:00 Room Air 06/16/23 08:00 06/16/23 07:41 Room Air 06/16/23 06:00 06/16/23 05:44 06/16/23 04:27 Room Air Laboratory Results Cardiac Enzymes 06/16/23 Range/Units 06:04 AST 43 H (13-39) U/L CBC 06/16/23 Range/Units 06:04 WBC 10.72 (4.8-10.8) K/ul RBC 3.84 L (4.20-5.40) M/uL Hgb 10.5 L (12.0-16.0) g/dl Hct 33.9 L (37.0-47.0) % Plt Count 131 (130-400) K/uL Neut # (Auto) 9.02 H (1.40-6.50) K/uL Lymph # (Auto) 0.62 L (1.20-3.40) K/uL [place] # (Auto) 0.89 H (0.11-0.59) K/uL Eos # (Auto) 0.11 (0.00-0.50) K/uL Baso # (Auto) 0.03 (0.00-0.20) K/uL Comprehensive Metabolic Panel 06/16/23 Range/Units 06:04 Sodium 137 (136-145) mmol/L Potassium 3.4 L (3.5-5.1) mmol/L Chloride 103 (98-107) mmol/L Carbon Dioxide 24 (21-32) mmol/L BUN 16 (6-23) mg/dl Creatinine 1.16 (0.6-1.2) mg/dl Glucose 125 H (70-99(Fasting)) mg/dl Calcium 8.9 (8.6-10.3) mg/dl AST 43 H (13-39) U/L ALT 68 H (7-52) U/L Alkaline Phosphatase 85 (34-104) U/L Total Protein 6.1 (6.0-8.3) gm/dl Albumin 3.4 (3.4-5.0) gm/dl Intake and Output 06/15/23 06/16/23 06/16/23 22:59 06:59 14:59 Intake Total 454.167 / 2154.167 500 / 2154.167 1000 / 1000 Output Total 5 / 5 Balance 449.167 / 2149.167 500 / 2149.167 1000 / 1000 Intake: IV 54.167 / 1354.167 100 / 3829.305 0272 / 1000 Lactated Ringer's 1,000 ml @ 70 1000 / 1000 mls/hr IV .[id number] SG Rx#: [id number] Piperacillin/Tazobactam 4.5 gm 54.167 / 254.167 100 / 254.167 In Dextrose 5% Mini-B 100 ml @ 25 mls/hr IV Q8H SG Rx#: [id number] IV Perioperative 400 / 400 Oral 400 / 400 Output: Estimated Blood Loss Other: # Unmeasured Voids 2 Weight 86.9 kg Weight Measurement Method Built in [facility]
[2023-06-16] MEDS ORDERED: OXYMETAZOLINE 0.05% 30 ML BTL ONE (12:50)
[2023-06-16] MEDS: ADVANCED PROBIOTIC 1250 MG CAPSULE PO SCH (13:11)
[2023-06-16] MEDS ORDERED: POTASSIUM CHLORIDE CRTAB 20 MEQ TABCR PO STA (13:12)
--- NOTE | 2023-06-16 17:24 | Hospitalist Progress Note ---
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 In ER afebrile, vital stable. WBC: 12. T. bili: 1.1, AST: 549 (was 25 and 12/25), ALT: 290 (was 16 on 12/25), alk phos: 154 (82 in 12/25). CT abdomen pelvis: 1. No bowel obstruction. No bowel wall thickening. Normal appendix. 2. Moderate dilatation of the common bile duct, slightly increased since prior CT and MRI. Findings could be correlated with obstructive liver function tests. Wall thickening and enhancement of the biliary tree. This is nonspecific however cholangitis is within the differential. Subtle stranding adjacent to the liver/kim hepatis, as described above. Cholelithiasis. Contracted gallbladder. No evidence for acute cholecystitis. 3. Chronic diverticulosis. No evidence for acute diverticulitis. No recurrent chills or nausea or abdominal pain. Patient currently asymptomatic In ER given IVF, Zosyn, Zofran ER physician contacted on-call GI here who was unable to perform ERCP and recommended transfer. ER physician called [facility] for potential transfer for ERCP. Per epic notes [facility] stated that since patient is not septic and critically ill an emergent ERCP would not be completed tonight and recommended patient can get ERCP here tomorrow. If ERCP is not possible at this facility or patient decompensates to call back for consideration of transfer. Blood cultures (obtained after initial IV antibiotics given) NPO IVF Zosyn IV Tylenol, IV morphine prn pain Monitor closely. If patient recurrent severe pain or clinically worsening plan to transfer for consideration emergent ERCP GI consult CBC, CMP, lipase in a.m. 11 for Cholecystectomy today continue IV Zosyn 12 Stable postop day #1 Transition from IV Zosyn to Augmentin to complete 14-day course of antibiotic (4) Elevated troponin: Plan: Minimally elevated troponin at 15. 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 Baseline 1.3-1.5 Monitor renal functions, avoid nephrotoxic agents when possible (9) HTN (hypertension): Plan: Stable on Metoprolol changed to Carvedilol Lisinopril (10) Type 2 diabetes mellitus: Plan: A1c: 7.1 on 04/20/2023 Currently diet controlled Monitor BSG's NovoLog sliding scale correction only at this time while n.p.o. (11) Hyperlipidemia: Plan: Atorvastatin on hold (12) Aortic stenosis: Plan: S/P TAVR in 04/2023 at [facility] (13) Hypothyroidism: Plan: resume Levothyroxine tomorrow (14) Iron deficiency anemia: Plan: Hgb: 11. Baseline 11-12 Monitor H&H (15) GERD (gastroesophageal reflux disease): Plan: Convert oral PPI to IV while npo DVT Prophylaxis SCDs for now Full Code as per discussion with pt Follows with Dr Chelsey Mitchell for routine care Admission and Anticipated Discharge Date Admission Date: June 11, 2023 Subjective ff up for acute cholecystitis, etc seen resting in bed, comfortable states she feels improved compared to yesterday Upper quadrant pain improving Still has some bloating but positive BMs No other new symptom Review of Systems Review of Systems: all noted and negative except for above Physical Exam Physical Exam: General- oriented x 3, not in distress, speaks in sentences with no effort or accessory muscle use Eyes- anicteric Neck- no JVD Lungs- clear breath sounds bilaterally, no rales/wheezes Heart- normal rate, regular rhythm; no murmurs Abdomen- normal bowel sounds, nondistended, soft, nontender Laparoscopic cholecystectomy sites: No bleeding, healing well Extremities- no pretibial edema, no calf tenderness Neuro- alert, oriented x 3; no gross focal neurologic deficits Skin- warm & dry Results & Data Results & Data Vital Signs (Past 12 Hours) Vital Signs Temp Pulse Pulse Resp BP BP Pulse Ox 06/16/23 15:36 37.3 C 61 18 158/78 H 92 06/16/23 12:00 37.1 C 81 18 147/84 H 94 06/16/23 08:00 60 06/16/23 07:41 37.7 C H 68 18 150/82 H 95 06/16/23 06:00 154/79 H 06/16/23 05:44 185/92 H O2 Del Method 06/16/23 15:36 Room Air 06/16/23 12:00 Room Air 06/16/23 08:00 06/16/23 07:41 Room Air 06/16/23 06:00 06/16/23 05:44 all noted and reviewed including below
[2023-06-16] MEDS: AMOXICILLIN/CLAVULANATE 875 MG TAB PO SCH (18:39)
[2023-06-16] MEDS: carvediloL 6.25 MG TAB PO SCH (21:41)
[2023-06-17] MEDS: AMOXICILLIN/CLAVULANATE 875 MG TAB PO SCH (08:44)
[2023-06-17] MEDS: carvediloL 6.25 MG TAB PO SCH (08:44)
[2023-06-17] MEDS: lisinopril 40 MG TAB PO SCH (08:44)
[2023-06-17] MEDS: ASPIRIN 81 MG ECTAB PO SCH (08:44)
[2023-06-17] MEDS: ADVANCED PROBIOTIC 1250 MG CAPSULE PO SCH (08:44)
[2023-06-17] MEDS ORDERED: PANTOprazole 40 MG TAB PO SCH (09:00)
[2023-06-17] MEDS: INSULIN ASPART PER UNIT CHARGE SC SCH ×2 (10:36→13:16)
--- NOTE | 2023-06-17 14:06 | Hospitalist Progress Note ---
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 In ER afebrile, vital stable. WBC: 12. T. bili: 1.1, AST: 549 (was 25 and 12/25), ALT: 290 (was 16 on 12/25), alk phos: 154 (82 in 12/25). CT abdomen pelvis: 1. No bowel obstruction. No bowel wall thickening. Normal appendix. 2. Moderate dilatation of the common bile duct, slightly increased since prior CT and MRI. Findings could be correlated with obstructive liver function tests. Wall thickening and enhancement of the biliary tree. This is nonspecific however cholangitis is within the differential. Subtle stranding adjacent to the liver/kim hepatis, as described above. Cholelithiasis. Contracted gallbladder. No evidence for acute cholecystitis. 3. Chronic diverticulosis. No evidence for acute diverticulitis. Cardiology service consulted prior to undergoing procedure 06/13 Status post upper GI endoscopy, EUS, ERCP: Findings 1)gastritis 2)Antral ulcer 3)choledocholithiasis Intervention: Biliary sphincterotomy with placement of a common bile duct stenting and prophylactic pancreatic stent Recommendations 1) Cholecystectomy per general surgery 2) Avoid anticoagulation for 1 week 3) Avoid NSAIDs for 6 weeks to allow healing of the antral ulcer 4) repeat upper endoscopy with ERCP in 8 to 12 weeks for stent removal 5) Complete a 2-week course of antibiotics 6) Patient may have clears today 7) Omeprazole 20 mg daily for 3 months (ulcer healing) 06/17 Status post cholecystectomy Remains stable overall Received 1 week of IV Zosyn, discharged on Augmentin twice daily x 7 more days to complete 14-day course Follow-up with GI and general surgery as an outpatient (4) Elevated troponin: Plan: Minimally elevated troponin at 15. 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 Baseline 1.3-1.5 (9) HTN (hypertension): Plan: Stable on Metoprolol, changed to Carvedilol by cardiology service Lisinopril (10) Type 2 diabetes mellitus: Plan: A1c: 7.1 on 04/20/2023 Currently diet controlled Monitor BSG's NovoLog sliding scale correction only at this time while n.p.o. (11) Hyperlipidemia: Plan: Atorvastatin on hold (12) Aortic stenosis: Plan: S/P TAVR in 04/2023 at [facility] [place] (13) Hypothyroidism: Plan: resume Levothyroxine (14) Iron deficiency anemia: Plan: Hgb: 11. Baseline 11-12 Monitor H&H (15) GERD (gastroesophageal reflux disease): Plan: Continue omeprazole x 3-month PCP in 1 week General surgery, GI in 1 week Admission and Anticipated Discharge Date Admission Date: June 11, 2023 Subjective Follow-up for acute cholangitis, etc. Seen resting in bed, comfortable, not in distress In good spirits States she feels much better overall Denies abdominal pain, bloating Tolerating diet well Positive bowel movements no chest pain, dyspnea, palpitations, dizziness No other new symptom Review of Systems Review of Systems: all noted and negative except for above Physical Exam Physical Exam: General- oriented x 3, not in distress, speaks in sentences with no effort or accessory muscle use Eyes- anicteric Neck- no JVD Lungs- clear breath sounds bilaterally, no rales/wheezes Heart- normal rate, regular rhythm; no murmurs Abdomen- normal bowel sounds, nondistended, soft, nontender Lap tricia sites: Healing well, no bleeding or discharge Extremities- no pretibial edema, no calf tenderness Neuro- alert, oriented x 3; no gross focal neurologic deficits Skin- warm & dry Results & Data Results & Data Vital Signs (Past 12 Hours) Vital Signs Temp Pulse Pulse Resp BP Pulse Ox O2 Del Method 06/17/23 13:17 36.9 C 66 06/17/23 11:57 37.9 C H 18 135/77 91 Room Air 06/17/23 08:00 37.0 C 71 18 192/79 H 93 Room Air 06/17/23 07:30 61 06/17/23 03:14 36.8 C 62 18 144/78 H 95 Room Air all noted and reviewed including below
--- NOTE | 2023-06-17 19:45 | Discharge Summary ---
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 History obtained from patient, patient's daughter as well as outpatient chart review. Patient states this morning had coffee and toast and was feeling fine. She reports later in the morning had sudden onset shaking chills, nausea and cramps to mid abdomen. Reports cramps and nausea lasted approximately 30 to 60 minutes. Did not take temperature. No further chills. Denies vomiting. Has not had any recurrent episodes of nausea or abd ominal pain. Pain resolved spontaneously. Had normal formed brown BM this morning. Staets approximately one month ago had episode of mid abdominal discomfort that also resolved spontaneously. SOB with walking up couple flights of stairs is at her baseline. Denies diaphoresis, N/V/D/C, GONZALES, dizziness, syncope, vision changes, neck pain, CP, palpitations, cough, sore throat, rhinorrhea, paresthesias, weakness, increased extremity edema, rashes, urinary symptoms. Outpatient record review: 01/18/2023: PET scan: Lymph node posterior to pancreatic head measures 7 mm in diameter. Lymph node anterior to pancreatic head measures 1.2 cm 08/06/2019: EUS: Pancreatic neck lesion measuring 12 mm x 6 mm Admission Exam Per Admitting Provider General- oriented x 3, not in distress, speaks in sentences with no effort or accessory muscle use Eyes- anicteric Neck- no JVD Lungs- clear breath sounds bilaterally, no rales/wheezes Heart- normal rate, regular rhythm; no murmurs Abdomen- normal bowel sounds, nondistended, soft, nontender Lap tricia sites: Healing well, no bleeding or discharge Extremities- no pretibial edema, no calf tenderness Neuro- alert, oriented x 3; no gross focal neurologic deficits Skin- warm & dry Principal Dx & Hospital Course #1 = Principal Diagnosis (1) Abdominal pain: (2) Elevated LFTs: (3) Chills: ACUTE CHOLANGITIS STATUS POST ERCP WITH BILIARY AND PANCREATIC DUCT STENT PLACEMENT STATUS POST CHOLECYSTECTOMY GASTRITIS, ANTRAL ULCER Patient is 87-year-old female with PMH iron deficiency anemia, HTN, dyslipidemia, hypothyroidism, CKD III, DM II, aortic stenosis s/p TAVR 04/2023, 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 In ER afebrile, vital stable. WBC: 12. T. bili: 1.1, AST: 549 (was 25 and 12/25), ALT: 290 (was 16 on 12/25), alk phos: 154 (82 in 12/25). CT abdomen pelvis: 1. No bowel obstruction. No bowel wall thickening. Normal appendix. 2. Moderate dilatation of the common bile duct, slightly increased since prior CT and MRI. Findings could be correlated with obstructive liver function tests. Wall thickening and enhancement of the biliary tree. This is nonspecific however cholangitis is within the differential. Subtle stranding adjacent to the liver/kim hepatis, as described above. Cholelithiasis. Contracted gallbladder. No evidence for acute cholecystitis. 3. Chronic diverticulosis. No evidence for acute diverticulitis. Cardiology service consulted prior to undergoing procedure 06/13 Status post upper GI endoscopy, EUS, ERCP: Findings 1)gastritis 2)Antral ulcer 3)choledocholithiasis Intervention: Biliary sphincterotomy with placement of a common bile duct stenting and prophylactic pancreatic stent Recommendations 1) Cholecystectomy per general surgery 2) Avoid anticoagulation for 1 week 3) Avoid NSAIDs for 6 weeks to allow healing of the antral ulcer 4) repeat upper endoscopy with ERCP in 8 to 12 weeks for stent removal 5) Complete a 2-week course of antibiotics 6) Patient may have clears today 7) Omeprazole 20 mg daily for 3 months (ulcer healing) 06/17 Status post cholecystectomy Remains stable overall Received 1 week of IV Zosyn, discharged on Augmentin twice daily x 7 more days to complete 14-day course Follow-up with GI and general surgery as an outpatient (4) Elevated troponin: Minimally elevated troponin at 15. 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 Baseline 1.3-1.5 (9) HTN (hypertension): Stable on Metoprolol, changed to Carvedilol by cardiology service Lisinopril (10) Type 2 diabetes mellitus: A1c: 7.1 on 04/20/2023 Currently diet controlled Monitor BSG's NovoLog sliding scale correction only at this time while n.p.o. (11) Hyperlipidemia: Atorvastatin on hold (12) Aortic stenosis: S/P TAVR in 04/[address] [facility] (13) Hypothyroidism: resume Levothyroxine (14) Iron deficiency anemia: Hgb: 11. Baseline 11-12 Monitor H&H (15) GERD (gastroesophageal reflux disease): Continue omeprazole x 3-month PCP in 1 week General surgery, GI in 1 week Discharge Exam General- oriented x 3, not in distress, speaks in sentences with no effort or accessory muscle use Eyes- anicteric Neck- no JVD Lungs- clear breath sounds bilaterally, no rales/wheezes Heart- normal rate, regular rhythm; no murmurs Abdomen- normal bowel sounds, nondistended, soft, nontender Lap tricia sites: Healing well, no bleeding or discharge Extremities- no pretibial edema, no calf tenderness Neuro- alert, oriented x 3; no gross focal neurologic deficits Skin- warm & dry Updated Medication List Medication Instructions Recorded Confirmed Type ascorbic acid (vitamin C) 500 mg 500 mg PO QAM 12/16/20 06/11/23 History tablet (Vitamin C) atorvastatin 20 mg tablet 20 mg PO QAM 12/16/20 06/11/23 History levothyroxine 100 mcg tablet 100 mcg PO QAM 12/16/20 06/11/23 History lisinopril 40 mg tablet 40 mg PO QAM 12/16/20 06/11/23 History multivitamin 1 tab PO QAM 12/16/20 06/11/23 History omeprazole 40 mg capsule,delayed 40 mg PO QAM 12/16/20 06/11/23 History release octreotide acetate 50 mcg/mL 50 mcg subcut UD 10/29/21 06/11/23 History injection solution (Sandostatin) acetaminophen 500 mg capsule 1,000 mg PO TID PRN Pain 06/11/23 06/11/23 History aspirin 81 mg tablet,delayed 81 mg PO DAILY 06/11/23 06/11/23 History release (Fransisca Low Dose Aspirin) cholecalciferol (vitamin D3) 10 400 mcg PO DAILY 06/11/23 06/11/23 History mcg (400 unit) tablet (Vitamin D3) furosemide 20 mg tablet 20 mg PO DAILY 06/11/23 06/11/23 History hydrocodone 5 mg-acetaminophen 325 1 tab PO Q6H PRN moderate-severe 06/11/23 06/11/23 History mg tablet pain amoxicillin 875 mg-potassium 1 tab PO BIDM 7 days #14 tabs 06/17/23 Rx clavulanate 125 mg tablet carvedilol 6.25 mg tablet 6.25 mg PO BID 30 days #60 tabs 06/17/23 Rx Hospital Stay Data Consultations 06/11/23 17:34 ED Decision to Admit Stat 06/12/23 08:00 Consult Gastroenterology Routine 06/12/23 09:45 Consult General Surgery Routine 06/12/23 11:56 Consult Cardiology Routine Procedures Performed Operation Date: 06/15/23 12:30 Actual Procedures p Robotic Laparoscopic Cholecystectomy(Not Applicable) - Jesse Walsh DO, FACS Diagnostic Imagining Performed Laboratory Results WBC 10.72 K/ul (4.8-10.8) 06/16/23 06:04 RBC 3.84 M/uL (4.20-5.40) L 06/16/23 06:04 Hgb 10.5 g/dl (12.0-16.0) L 06/16/23 06:04 Hct 33.9 % (37.0-47.0) L 06/16/23 06:04 MCV 88.3 fL (80.0-100.0) 06/16/23 06:04 MCH 27.3 pg (25.0-34.0) 06/16/23 06:04 MCHC 31.0 g/dL (32.0-36.0) L 06/16/23 06:04 RDW Std Deviation 45.8 fL (36.4-46.3) 01/12/24 06:04 RDW Coeff of Allan 14.4 % (11.5-14.5) 06/16/23 06:04 Plt Count 131 K/uL (130-400) 06/16/23 06:04 MPV 10.8 fL (9.4-12.4) 06/16/23 06:04 Immature Gran % (Auto) 0.5 % 06/16/23 06:04 Neut % (Auto) 84.1 % 06/16/23 06:04 Lymph % (Auto) 5.8 % 06/16/23 06:04 [place] % (Auto) 8.3 % 06/16/23 06:04 Eos % (Auto) 1.0 % 06/16/23 06:04 Baso % (Auto) 0.3 % 06/16/23 06:04 Neut # (Auto) 9.02 K/uL (1.40-6.50) H 06/16/23 06:04 Lymph # (Auto) 0.62 K/uL (1.20-3.40) L 06/16/23 06:04 [place] # (Auto) 0.89 K/uL (0.11-0.59) H 06/16/23 06:04 Eos # (Auto) 0.11 K/uL (0.00-0.50) 06/16/23 06:04 Baso # (Auto) 0.03 K/uL (0.00-0.20) 06/16/23 06:04 Immature Gran # (Auto) 0.05 K/uL (0.01-0.20) 06/16/23 06:04 Sodium 137 mmol/L (136-145) 06/16/23 06:04 Potassium 3.4 mmol/L (3.5-5.1) L 06/16/23 06:04 Chloride 103 mmol/L (98-107) 06/16/23 06:04 Carbon Dioxide 24 mmol/L (21-32) 06/16/23 06:04 Anion Gap 10 (3-11) 06/16/23 06:04 BUN 16 mg/dl (6-23) 06/16/23 06:04 Creatinine 1.16 mg/dl (0.6-1.2) 06/16/23 06:04 Est Cr Clr Drug Dosing 36.3 ml/min 06/16/23 06:04 Est GFR ( Amer) 49.7 ml/min 06/16/23 06:04 Est GFR (Non-Af Amer) 42.9 ml/min 06/16/23 06:04 BUN/Creatinine Ratio 13.8 (10-20) 06/16/23 06:04 Glucose 125 mg/dl (70-99(Fasting)) H 06/16/23 06:04 POC Glucose 172 mg/dl (70-99) H 06/17/23 12:18 Fasting Glucose 131 mg/dl (70-99) H 06/13/23 05:35 Calcium 8.9 mg/dl (8.6-10.3) 06/16/23 06:04 Phosphorus 3.6 mg/dl (2.5-4.9) 06/14/23 06:16 Magnesium 1.8 mg/dl (1.7-2.4) 06/14/23 06:16 Total Bilirubin 0.9 mg/dl (0.2-1.0) 06/16/23 06:04 Direct Bilirubin 1.1 mg/dl (0-0.2) H 06/11/23 13:33 AST 43 U/L (13-39) H 06/16/23 06:04 ALT 68 U/L (7-52) H 06/16/23 06:04 Alkaline Phosphatase 85 U/L (34-104) 06/16/23 06:04 Troponin I High Sens 21.4 pg/ml (0-14) H 06/11/23 19:36 Total Protein 6.1 gm/dl (6.0-8.3) 06/16/23 06:04 Albumin 3.4 gm/dl (3.4-5.0) 06/16/23 06:04 Globulin 2.7 gm/dl (2.5-4.0) 06/16/23 06:04 Albumin/Globulin Ratio 1.3 (0.9-2) 06/16/23 06:04 Lipase 11 U/L (11-82) 06/12/23 05:57 Urine Color Yellow 06/11/23 13:33 Urine Appearance Clear (Clear) 06/11/23 13:33 Urine pH 6.0 (4.5-7.5) 06/11/23 13:33 Ur Specific [place] 1.015 (1.000-1.030) 06/11/23 13:33 Urine Protein Negative (Negative) 06/11/23 13:33 Urine Glucose (UA) Negative (Negative) 06/11/23 13:33 Urine Ketones Negative (Negative) 06/11/23 13:33 Urine Blood Negative (Negative) 06/11/23 13:33 Urine Nitrite Negative (Negative) 06/11/23 13:33 Urine Bilirubin Negative (Negative) 06/11/23 13:33 Urine Urobilinogen Negative (Negative) 06/11/23 13:33 Ur Leukocyte Esterase Negative (Negative) 06/11/23 13:33 SARS-CoV-2 (PCR) NEGATIVE (Negative) 06/11/23 13:34 Influenza Type A (PCR) Negative (Neg) 06/11/23 13:34 Influenza Type B (PCR) Negative (Neg) 06/11/23 13:34 RSV (RT-PCR) Negative (Neg) 06/11/23 13:34 Impressions Chest X-Ray 06/11/23 13:31 XR chest 1V portable CLINICAL HISTORY: Feeling ill. COMPARISON STUDY: Chest radiograph November 02, 2021. FINDINGS: A left subclavian pacer, prosthetic aortic valve and lumbar spine fusion hardware is incidentally noted. No pneumothorax or pleural effusion is present. Cardiomegaly is unchanged. No evidence for pulmonary edema. There is no consolidation to suggest pneumonia. There has been no change in appearance of the chest. IMPRESSION: No acute cardiopulmonary findings. No change in appearance of the chest. ACT 112: Negative or not required by law. Electronically signed by: Felix Santoro M.D. 06/11/2023 2:30 PM Abdomen/Pelvis CT 06/11/23 13:32 CT OF THE ABDOMEN AND PELVIS WITH CONTRAST CLINICAL HISTORY: Periumbilical pain. COMPARISON STUDY: CT of the abdomen and pelvis August 25, 2009. MRI of the abdomen June 02, 2017. TECHNIQUE: Following IV administration of 89 mL of Optiray, axial images of the abdomen and pelvis were obtained from the lung bases to the proximal femurs. Images were reviewed in the axial, sagittal, and coronal planes. IV contrast was administered without complication. Automated exposure control was utilized for the study. A dose lowering technique was utilized adhering to the principles of ALARA. CT DOSE: 1190.35 mGy.cm FINDINGS: Pacer leads, prosthetic aortic valve and moderate cardiomegaly are incidentally noted. No pneumatosis, free air or portal venous gas is present. There is a small calcified gallstone within the gallbladder. Gallbladder is contracted. There is subtle stranding adjacent to the gallbladder. In addition, there is subtle stranding along the falciform ligament and adjacent to the right hepatic lobe and right adrenal gland. No fluid collection is present. Mild biliary ductal dilatation has slightly increased since prior CT and MRI. Common bile duct measures 1.3 cm in caliber. Note is made of mildly thickened enhancing wall of the common bile duct as well as the cystic duct and portions of the intrahepatic bile ducts. Spleen, adrenal glands and pancreas are unremarkable. No pancreatic ductal dilatation. 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 There is no hydronephrosis. There is mild bilateral renal cortical thinning. Several subcentimeter bilateral renal lesions are too small to characterize. The caliber and wall thickness of small and large bowel are normal. The appendix is normal. Colonic diverticulosis without evidence for acute diverticulitis. Evidence for pelvic floor relaxation. Images of the pelvis are degraded by streak artifact from a right hip arthroplasty. There is moderate atherosclerotic plaque within the abdominal aorta and branch vessels. There is no lymphadenopathy. There is no ascites. Postoperative findings within the spine are incidentally noted. IMPRESSION: 1. No bowel obstruction. No bowel wall thickening. Normal appendix. 2. Moderate dilatation of the common bile duct, slightly increased since prior CT and MRI. Findings could be correlated with obstructive liver function tests. Wall thickening and enhancement of the biliary tree. This is nonspecific however cholangitis is within the differential. Subtle stranding adjacent to the liver/kim hepatis, as described above. Cholelithiasis. Contracted gallbladder. No evidence for acute cholecystitis. 3. Chronic diverticulosis. No evidence for acute diverticulitis. ACT 112: Negative or not required by law. Electronically signed by: Felix Santoro M.D. 06/11/2023 3:27 PM 06/11/23 13:32 CT abd pelvis IV con only Stat 06/12/23 07:44 US upper EUS PACS images Routine 06/13/23 07:00 FL ERCP biliary ductal Routine 06/13/23 08:03 US upper EUS PACS images Routine 06/13/23 11:00 US upper EUS PACS images Routine Pending Results Patient Have Any Pending Studies at Discharge: Yes Discharge Instructions Given to Patient (Per Discharging Provider) PLEASE REFER TO YOUR NEW MEDICATION LIST AND FOLLOW INSTRUCTIONS CAREFULLY. YOUR NEW MEDICATIONS INCLUDE: Augmentin-antibiotic for acute cholangitis Please take a probiotic daily for at least 1 month. Renewlife Brand recommended. Carvedilol-for blood pressure control Stop Metoprolol. Continue omeprazole for at least 3 months. Always take aspirin with a full stomach PLEASE CALL YOUR PRIMARY CARE PHYSICIAN OR RETURN TO THE ER IF WITH WORSENING OF SYMPTOMS, INCLUDING Abdominal pain, fevers or chills, nausea vomiting, black or bloody stools, etc. FOLLOW UP WITH PRIMARY CARE PHYSICIAN OUTLINED ABOVE. Follow-up with graphic arts instructor Dr. Nickerson as outlined above. Follow-up with general surgeon Dr. Walsh as outlined above. Total Time Total Time Spent Total Time Spent (In Minutes): >30 minutes
== END 2023-06-17 16:21 | disposition home or self-care (01) | DRG 418 ==
LOC: ED 13:16 → SUATTDRO 18:57 → EDINP 18:57 → 2N 06-12 20:43

== ENCOUNTER 2024-12-22 22:22 | Inpatient (IN) ==
--- NOTE | 2024-12-22 22:32 | Emergency Department Note ---
Impression & Plan Fever Admission ED Provider Note HPI: History obtained from patient. The patient is a 89-year-old female, neuroendocrine tumor of the pancreas, who presents the emergency department with a chief complaint of nausea and fever. Patient states that she was feeling in her normal state of health until several hours prior to arrival when she developed some chills and had some nausea. Patient states she did not actually have any vomiting, she denies any diarrhea, she denies any cough, chest pain, or shortness of breath. On arrival here to the ED the patient is febrile at 38.1 Celsius, she is otherwise hemodynamically stable, she is saturating well on room air on arrival. Patient states that she gets Sandostatin injections but is not currently on any other therapy for her history of neuroendocrine tumor. ROS: - Per HPI Differential Diagnosis: Sepsis, UTI, pneumonia, viral upper respiratory infection, viral gastroenteritis, amongst other potential pathologies. *Outpatient medications and allergy history reviewed. 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 IV was established and lab work obtained, patient was placed on patient monitor. Lab work shows a leukocytosis of 14.35, hemoglobin is stable at 11.2, platelet count is normal, CMP does not show any evidence of any critical findings, creatinine appears to be near baseline at 1.51, lactic acid is slightly elevated at 2.1 for which the patient was given IV fluids. Urinalysis does not show any evidence of any obvious infection, viral panel testing was obtained and is negative. On my reevaluation the patient remains hemodynamically stable, given fever of unknown origin with elevated white blood cell count and elevated lactic acid, I do feel the patient should be admitted for IV antibiotics and to follow-up on blood cultures. Patient was in agreement to this plan, [facility] hospitalist service was consulted for admission and the patient was placed for admission in stable condition. Consultants/Discussions held with other healthcare providers: - Dr. Ojeda, Hospitalist Disposition discussion held by myself with: - Patient Diagnosis: 1. Fever of unknown origin, acute 2. Lactic acidosis, acute 3. Leukocytosis, acute Disposition: Admission Arvin Trent DO Emergency Medicine Past Med/Surg History Problem List Fever (Acute) Cholelithiases S/P TAVR (transcatheter aortic valve replacement) Preop cardiovascular exam Vomiting (Acute) Acute cholangitis (Acute) GERD (gastroesophageal reflux disease) Elevated troponin Chills Elevated LFTs Abdominal pain S/P total right hip arthroplasty Arthritis of right hip Allergic rhinitis SSS (sick sinus syndrome) pt admitted for elective SSS. Underwent procedure without any complications. Monitored overnight and discharged home. 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 >AD History of knee replacement b/l Medical History Hypertension controlled, stable per pt History of bleeding ulcers (~2017) Myocardial Infarction silent NH per pt, denies when first detected Pacemaker d/t bradycardia/syncope, Medtronic, follows with [facility] cardio History of COVID-19 (~05/2020) resolved Surgical History 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, [employer]tr[employer], follows with [facility] cardio Hx of endoscopic retrograde cholangiopancreatography (~06/13/23) History of total right hip replacement Hx of aortic valve replacement (~04/06/23) [place], follows with [facility] Cardio Hx laparoscopic cholecystectomy (06/15/23) Robotic Laparoscopic Cholecystectomy(Not Applicable) - Jesse Walsh DO, FACS S/P colonoscopy Hx of esophagogastroduodenoscopy Previous back surgery >11 YEARS AGO- [facility]: pt states upon induction felt "unusual" (unable to further describe) and woke up with real estate economist and anesthesiologist checking on her-suspects was bradycardia prior to pacemaker placement; reports no additional issues/episodes; no available records History of cardiac cath x 2, no stents, most recent in [place] in 2022 prior to aortic valve replacement, follows [facility] cardio Family History Other Allergies No family history of bleeding disorder Denies family history of Hearing loss Heart disease Cancer Hypertension Stroke Asthma Social History Smoking Status: Never smoker Second Hand Exposure: No; Do You Dip or Chew Tobacco: No; Hx Alcohol Use: No Hx Substance Use: No Preferred Language: Afghan Communication Ability: Effective Causticiser Required: No Beliefs That Will Affect Care: None marital status: Current Living Situation: Spouse current occupational status: retired How many Children do You have: 4 Feels Safe at Home: Yes Assistive Devices: Denture - Upper, Denture - Lower and Glasses Allergies Allergies Allergy/AdvReac Type Severity Reaction Status Date / Time bee venom protein (honey bee) Allergy Intermediate SWELLING Verified 12/22/24 22:40 Sulfa (Sulfonamide Allergy Intermediate RASH Verified 12/22/24 22:40 Antibiotics) doxycycline Allergy Rash Verified 12/22/24 22:41 Home Meds Home Medications Medication Instructions Recorded Confirmed atorvastatin 20 mg tablet 20 mg PO QAM 12/16/20 12/22/24 levothyroxine 100 mcg tablet 100 mcg PO DAILYBB 12/16/20 12/22/24 lisinopril 40 mg tablet 40 mg PO QAM 12/16/20 12/22/24 omeprazole 40 mg capsule,delayed 40 mg PO DAILYBB 12/16/20 12/22/24 release acetaminophen 500 mg capsule 500 mg PO Q6 PRN Pain 06/11/23 12/22/24 aspirin 81 mg tablet,delayed 81 mg PO QAM 06/11/23 12/22/24 release (Fransisca Low Dose Aspirin) cholecalciferol (vitamin D3) 10 400 mcg PO QAM 06/11/23 12/22/24 mcg (400 unit) tablet (Vitamin D3) furosemide 20 mg tablet 20 mg PO Q OTHER DAY PRN increased 06/11/23 12/22/24 swelling or SOB octreotide acetate 500 mcg/mL 20 mg MONTHLY 08/08/23 12/22/24 injection solution (Sandostatin) hydrocodone 5 mg-acetaminophen 325 1 tab PO Q6 PRN pain mild 09/03/24 12/22/24 mg tablet apixaban 2.5 mg tablet (Eliquis) 2.5 mg PO AMHS 12/22/24 12/22/24 ascorbic acid (vitamin C) 100 mg 100 mg PO QAM 12/22/24 12/22/24 tablet (Vitamin C) carvedilol 6.25 mg tablet 6.25 mg PO AMPM 12/22/24 12/22/24 estradiol 0.01% (0.1 mg/gram) 1 applic vaginal QAM PRN per pt 12/22/24 12/22/24 vaginal cream meclizine 12.5 mg tablet 12.5 mg PO TID PRN Dizziness 12/22/24 12/22/24 multivitamin with minerals-folic 2 tab PO QAM 12/22/24 12/22/24 acid 200 mcg chewable tablet (Adult Multivitamin Gummies) sucralfate 100 mg/mL oral 10 ml PO ACHS 12/22/24 12/22/24 suspension Results & Data (ED) Vital Signs Vital Signs - 24 hr 12/22/24 22:23 12/22/24 22:23 12/22/24 22:31 Temperature 38.1 C H Temperature Source Oral Pulse Rate 78 71 Pulse Rate [Apical] Pulse Rhythm Regular Pulse Rhythm [Apical] Pulse Strength [Apical] Respiratory Rate 14 12 Respiratory Effort / Characteristics Non-Labored Respiratory Depth Normal Respiratory Pattern Blood Pressure 133/71 Blood Pressure [Right Arm] Blood Pressure Mean 91 Blood Pressure Mean [Right Arm] Blood Pressure Position [Right Arm] Pulse Oximetry 93 93 98 Oxygen Delivery Method Room Air Room Air Room Air Oxygen Flow Rate 0 Sepsis Recent Fever Within 48 Hours Yes Sepsis New/Unexplained Change in Mental Status No Sepsis Action Taken by Nursing No Action Required 12/22/24 22:33 12/22/24 22:43 12/23/24 00:03 Temperature Temperature Source Pulse Rate 73 65 Pulse Rate [Apical] 61 Pulse Rhythm Pulse Rhythm [Apical] Regular Pulse Strength [Apical] Normal Respiratory Rate 16 17 Respiratory Effort / Characteristics Non-Labored Respiratory Depth Normal Respiratory Pattern Regular Blood Pressure 115/53 L Blood Pressure [Right Arm] 112/73 Blood Pressure Mean 73 Blood Pressure Mean [Right Arm] 86 Blood Pressure Position [Right Arm] Sitting Pulse Oximetry 94 94 Oxygen Delivery Method Room Air Room Air Oxygen Flow Rate Sepsis Recent Fever Within 48 Hours Sepsis New/Unexplained Change in Mental Status Sepsis Action Taken by Nursing Laboratory Data 12/22/24 22:28 12/22/24 22:28 Lab Results 12/22/24 12/22/24 12/22/24 Range/Units 22:28 22:33 22:35 WBC 14.35 H (4.8-10.8) K/ul RBC 4.15 L (4.20-5.40) M/uL Hgb 11.2 L (12.0-16.0) g/dl Hct 36.1 L (37.0-47.0) % MCV 87.0 (80.0-100.0) fL MCH 27.0 (25.0-34.0) pg MCHC 31.0 L (32.0-36.0) g/dL RDW Std Deviation 51.6 H (36.4-46.3) fL RDW Coeff of Allan 16.0 H (11.5-14.5) % Plt Count 134 (130-400) K/uL MPV 10.6 (9.4-12.4) fL Immature Gran % (Auto) 0.3 % Neut % (Auto) 90.8 % Lymph % (Auto) 2.6 % Callahan % (Auto) 4.3 % Eos % (Auto) 1.7 % Baso % (Auto) 0.3 % Neut # (Auto) 13.03 H (1.40-6.50) K/uL Lymph # (Auto) 0.38 L (1.20-3.40) K/uL Callahan # (Auto) 0.61 H (0.11-0.59) K/uL Eos # (Auto) 0.24 (0.00-0.50) K/uL Baso # (Auto) 0.04 (0.00-0.20) K/uL Immature Gran # (Auto) 0.05 (0.01-0.20) K/uL PT 11.5 (9.0-12.0) Seconds INR 1.1 (0.9-1.1) Sodium 137 (136-145) mmol/L Potassium 4.1 (3.5-5.1) mmol/L Chloride 105 (98-107) mmol/L Carbon Dioxide 23 (21-32) mmol/L Anion Gap 9 (3-11) BUN 44 H (6-23) mg/dl Creatinine 1.51 H (0.6-1.2) mg/dl Est Cr Clr Drug Dosing 26.9 ml/min eGFR 33.25 BUN/Creatinine Ratio 29.1 H (10-20) Glucose 152 H (70-99(Fasting)) mg/dl Lactate 2.1 H* (0.4-2.0) mmol/L Calcium 9.3 (8.6-10.3) mg/dl Total Bilirubin 0.9 (0.2-1.0) mg/dl AST 66 H (13-39) U/L ALT 43 (7-52) U/L Alkaline Phosphatase 130 H (34-104) U/L Total Protein 6.9 (6.0-8.3) gm/dl Albumin 4.0 (3.4-5.0) gm/dl Globulin 2.9 (2.5-4.0) gm/dl Albumin/Globulin Ratio 1.4 (0.9-2) Lipase 21 (11-82) U/L Procalcitonin Cancelled Urine Color Urine Appearance (Clear) Urine pH (4.5-7.5) Ur Specific [place] (1.000-1.030) Urine Protein (Negative) Urine Glucose (UA) (Negative) Urine Ketones (Negative) Urine Blood (Negative) Urine Nitrite (Negative) Urine Bilirubin (Negative) Urine Urobilinogen (Negative) Ur Leukocyte Esterase (Negative) Urine WBC (Auto) (0-5) /hpf Urine RBC (Auto) (0-2) /hpf U Hyaline Cast (Auto) (0-2) /lpf U Epithel Cells (Auto) (0-2) /hpf Urine Bacteria (Auto) (None Seen) Urine Comment Adenovirus (PCR) Not Detected (NotDetected) B. pertussis DNA (PCR) Not Detected (NotDetected) B.parapertussis DNA PCR Not Detected (NotDetected) C. pneumoniae DNA (PCR) Not Detected (NotDetected) Coronavirus OC43 (PCR) Not Detected (NotDetected) Coronavirus HKU1 (PCR) Not Detected (NotDetected) Coronavirus 229E (PCR) Not Detected (NotDetected) SARS-CoV-2 (PCR) Not Detected (NotDetected) Coronavirus NL63 (PCR) Not Detected (NotDetected) Human Metapneumovir PCR Not Detected (NotDetected) Influenza Type A (PCR) Not Detected (NotDetected) Influenza Type B (PCR) Not Detected (NotDetected) M. pneumoniae (PCR) Not Detected (NotDetected) Parainfluenza 1 (PCR) Not Detected (NotDetected) Parainfluenza 2 (PCR) Not Detected (NotDetected) Parainfluenza 3 (PCR) Not Detected (NotDetected) Parainfluenza 4 (PCR) Not Detected (NotDetected) RSV (PCR) Not Detected (NotDetected) Entero/Rhino (PCR) Not Detected (NotDetected) 12/22/24 Range/Units 23:35 WBC (4.8-10.8) K/ul RBC (4.20-5.40) M/uL Hgb (12.0-16.0) g/dl Hct (37.0-47.0) % MCV (80.0-100.0) fL MCH (25.0-34.0) pg MCHC (32.0-36.0) g/dL RDW Std Deviation (36.4-46.3) fL RDW Coeff of Allan (11.5-14.5) % Plt Count (130-400) K/uL MPV (9.4-12.4) fL Immature Gran % (Auto) % Neut % (Auto) % Lymph % (Auto) % Callahan % (Auto) % Eos % (Auto) % Baso % (Auto) % Neut # (Auto) (1.40-6.50) K/uL Lymph # (Auto) (1.20-3.40) K/uL Callahan # (Auto) (0.11-0.59) K/uL Eos # (Auto) (0.00-0.50) K/uL Baso # (Auto) (0.00-0.20) K/uL Immature Gran # (Auto) (0.01-0.20) K/uL PT (9.0-12.0) Seconds INR (0.9-1.1) Sodium (136-145) mmol/L Potassium (3.5-5.1) mmol/L Chloride (98-107) mmol/L Carbon Dioxide (21-32) mmol/L Anion Gap (3-11) BUN (6-23) mg/dl Creatinine (0.6-1.2) mg/dl Est Cr Clr Drug Dosing ml/min eGFR BUN/Creatinine Ratio (10-20) Glucose (70-99(Fasting)) mg/dl Lactate (0.4-2.0) mmol/L Calcium (8.6-10.3) mg/dl Total Bilirubin (0.2-1.0) mg/dl AST (13-39) U/L ALT (7-52) U/L Alkaline Phosphatase (34-104) U/L Total Protein (6.0-8.3) gm/dl Albumin (3.4-5.0) gm/dl Globulin (2.5-4.0) gm/dl Albumin/Globulin Ratio (0.9-2) Lipase (11-82) U/L Procalcitonin Urine Color Yellow Urine Appearance Clear (Clear) Urine pH 5.5 (4.5-7.5) Ur Specific [place] 1.021 (1.000-1.030) Urine Protein Trace H (Negative) Urine Glucose (UA) Negative (Negative) Urine Ketones Trace H (Negative) Urine Blood Negative (Negative) Urine Nitrite Negative (Negative) Urine Bilirubin Negative (Negative) Urine Urobilinogen Negative (Negative) Ur Leukocyte Esterase 1+ H (Negative) Urine WBC (Auto) 0-5 (0-5) /hpf Urine RBC (Auto) 0-2 (0-2) /hpf U Hyaline Cast (Auto) 0-2 (0-2) /lpf U Epithel Cells (Auto) 6-10 H (0-2) /hpf Urine Bacteria (Auto) None Seen (None Seen) Urine Comment Adenovirus (PCR) (NotDetected) B. pertussis DNA (PCR) (NotDetected) B.parapertussis DNA PCR (NotDetected) C. pneumoniae DNA (PCR) (NotDetected) Coronavirus OC43 (PCR) (NotDetected) Coronavirus HKU1 (PCR) (NotDetected) Coronavirus 229E (PCR) (NotDetected) SARS-CoV-2 (PCR) (NotDetected) Coronavirus NL63 (PCR) (NotDetected) Human Metapneumovir PCR (NotDetected) Influenza Type A (PCR) (NotDetected) Influenza Type B (PCR) (NotDetected) M. pneumoniae (PCR) (NotDetected) Parainfluenza 1 (PCR) (NotDetected) Parainfluenza 2 (PCR) (NotDetected) Parainfluenza 3 (PCR) (NotDetected) Parainfluenza 4 (PCR) (NotDetected) RSV (PCR) (NotDetected) Entero/Rhino (PCR) (NotDetected) Administered Medications Discontinued Medications Acetaminophen (Acetaminophen 325 Mg Tab) 650 mg PO NOW STA Stop: 12/22/24 22:37 Last Admin: 12/22/24 23:40 Dose: 650 mg Documented By: PIERRE Sodium Chloride (Nss) 1,000 mls @ 999 mls/hr IV .Q1H1M STA Stop: 12/22/24 23:29 Last Admin: 12/22/24 22:34 Dose: 999 mls/hr Documented By: LINDSEY Cefepime HCl (Maxipime 2000mg) 2,000 mg in 20 mls @ 5 mls/min IV NOW STA; Protocol Stop: 12/23/24 00:06 Last Admin: 12/23/24 00:23 Dose: 5 mls/min Documented By: PIERRE Ondansetron HCl (Ondansetron Inj 2 Mg/Ml 2 Ml Vial) 4 mg IV NOW STA Stop: 12/22/24 22:31 Last Admin: 12/22/24 22:34 Dose: 4 mg Documented By: LINDSEY Discharge Plan Visit Data Chief Complaint: Weakness Stated Complaint: NAUSEA, WEAKNESS, HX PANCREATIC CA ED Provider: Arvin Trent Discharge Problem: Fever Patient Disposition: Admitted As Inpatient Condition: Fair Forms Stand Alone Forms: My [facility] Prescriptions Prescriptions: No Action atorvastatin 20 mg tablet 20 mg PO QAM omeprazole 40 mg capsule,delayed release(DR/EC) 40 mg PO DAILYBB levothyroxine 100 mcg tablet 100 mcg PO DAILYBB lisinopril 40 mg tablet 40 mg PO QAM acetaminophen 500 mg capsule 500 mg PO Q6 PRN (Reason: Pain) furosemide 20 mg tablet 20 mg PO Q OTHER DAY PRN (Reason: increased swelling or SOB) aspirin [Fransisca Low Dose Aspirin] 81 mg tablet,delayed release (DR/EC) 81 mg PO QAM cholecalciferol (vitamin D3) [Vitamin D3] 10 mcg (400 unit) Tablet 400 mcg PO QAM hydrocodone-acetaminophen 5-325 mg tablet 1 tab PO Q6 PRN (Reason: pain mild) meclizine 12.5 mg tablet 12.5 mg PO TID PRN (Reason: Dizziness) carvedilol 6.25 mg tablet 6.25 mg PO AMPM sucralfate 100 mg/mL suspension 10 ml PO ACHS Eliquis 2.5 mg tablet 2.5 mg PO AMHS estradiol 0.01 % (0.1 mg/gram) cream 1 applic VAGINAL QAM PRN (Reason: per pt) Rx Instructions: using as needed...ordered routine Vitamin C 100 mg Tablet 100 mg PO QAM multivit with min-folic acid [Adult Multivitamin Gummies] 200 mcg Tablet,Chewable 2 tab PO QAM octreotide acetate [Sandostatin] 500 mcg/mL Solution 20 mg MONTHLY Rx Instructions: inject into large muscle every month DUE AGUST 2024 Referrals Referrals: Chelsey Mitchell DO [Primary Care Provider] - Discharge Problem: Fever Qualifiers: Fever type: unspecified Qualified Code(s): R50.9 - Fever, unspecified
[2024-12-22] MEDS: ONDANSETRON INJ 2 MG/ML 2 ML VIAL IV STA (22:34)
[2024-12-22] MEDS: SODIUM CHLORIDE 0.9% 1,000 ML IV STA (22:34)
[2024-12-22 22:41] LABS: Hematocrit (blood only) 36.1 % (37.0-47.0); Hemoglobin 11.2 g/dl (12.0-16.0); Mean Corpuscular Hemoglobin 27.0 pg (25.0-34.0); Mean Corpuscular Volume 87.0 fL (80.0-100.0); Platelet Count 134 K/uL (130-400); RDW Standard Deviation 51.6 fL (36.4-46.3); Red Blood Count 4.15 M/uL (4.20-5.40); White Blood Count 14.35 K/ul (4.8-10.8)
[2024-12-22 22:59] LABS: Alanine Aminotransferase 43.0 U/L (7-52); Albumin Globulin Ratio 1.4 (0.9-2); Alkaline Phosphatase 130.0 U/L (34-104); Anion Gap 9.0 (3-11); Bilirubin,Total 0.9 mg/dl (0.2-1.0); Blood Urea Nitrogen 44.0 mg/dl (6-23); Calcium 9.3 mg/dl (8.6-10.3); Carbon Dioxide 23.0 mmol/L (21-32); Chloride 105.0 mmol/L (98-107); Creatinine Clr Calc Pharmacy 26.9 ml/min; Globulin 2.9 gm/dl (2.5-4.0); Glucose 152.0 mg/dl (70-99(Fasting)); Lipase 21.0 U/L (11-82); Potassium 4.1 mmol/L (3.5-5.1); Sodium 137.0 mmol/L (136-145); Total Protein 6.9 gm/dl (6.0-8.3)
[2024-12-22 23:07] LABS: Immature Granulocytes # (auto) 0.05 K/uL (0.01-0.20); Immature Granulocytes % (auto) 0.3 %
[2024-12-22 23:17] LABS: INR 1.1 (0.9-1.1); Prothrombin Time 11.5 Seconds (9.0-12.0)
[2024-12-22 23:34] LABS: Chlamydia pneumoniae PCR Not Detected (NotDetected); Coronavirus 229E PCR Not Detected (NotDetected); Coronavirus CoV-2 (COVID19)PCR Not Detected (NotDetected); Coronavirus HKU1 PCR Not Detected (NotDetected); Coronavirus NL63 PCR Not Detected (NotDetected); Coronavirus OC43PCR Not Detected (NotDetected); Human Metapneumovirus PCR Not Detected (NotDetected); Parainfluenza Virus 1 PCR Not Detected (NotDetected); Parainfluenza Virus 2 PCR Not Detected (NotDetected); Parainfluenza Virus 3 PCR Not Detected (NotDetected); Parainfluenza Virus 4 PCR Not Detected (NotDetected); Respiratory Syncytial VirusPCR Not Detected (NotDetected); Rhinovirus/Enterovirus PCR Not Detected (NotDetected)
[2024-12-22] MEDS: ACETAMINOPHEN 325 MG TAB PO STA (23:40)
[2024-12-22 23:52] LABS: Appearance Urine Clear (Clear); Bacteria Urine Automated None Seen (None Seen); Cast Urine Automated 0-2 /lpf (0-2); Glucose Urine UA Negative (Negative); RBC Urine Automated 0-2 /hpf (0-2); WBC Urine Automated 0-5 /hpf (0-5)
[2024-12-23] MEDS: CEFEPIME 2000MG 2,000 MG/20 ML SYR IV STA (00:23)
--- NOTE | 2024-12-23 00:54 | History & Physical Report ---
Date of Service December 23, 2024 Assessment & Plan (1) Fever: (2) Sepsis: (3) SSS (sick sinus syndrome): (4) History of permanent cardiac pacemaker placement: (5) Hx of aortic valve replacement: (6) Hx laparoscopic cholecystectomy: (7) S/P TAVR (transcatheter aortic valve replacement): Plan This is an 89 year old female with a PMH of neuroendocrine tumor of the pancreas, hx of TAVR, hypothyroidism, vertigo, CKD stage 3, HLD - coming in with nausea and weakness Fever of Unknown Origin Sepsis - patient meets sepsis criteria, fevers, leukocytosis, lactic acidosis - gentle IV hydration, hold diuretics - IV Cefepime given in the ED - blood cultures ordered and pending - UA and CXR done and no obvious signs of infection - respiratory panel done and negative - check abdominal ultrasound EDUIN superimposed on CKD stage 3 - creatinine elevation noted; slightly higher than baseline - IV fluids ordered - hold diuresis Hx of TAVR - cont Eliquis SSS s/p permanent pacemaker - noted History of Present Illness Chief Complaint: Nausea/weakness Primary Care Provider: Chelsey Mitchell, This is an 89 year old female with a PMH of neuroendocrine tumor of the pancreas, hx of TAVR, hypothyroidism, vertigo, CKD stage 3, HLD - coming in with nausea and weakness. States the nausea began on the day of arrival; not associated with vomiting. She states that she also felt chills which prompted her to come to the ER. In the ER, she spiked a fever (100.5), had leukocytosis as well as lactic acidosis. UA and CXR done and no obvious infection noted. IV fluids ordered and patient was given IV cefepime. Allergies Allergy/AdvReac Type Severity Reaction Status Date / Time bee venom protein (honey bee) Allergy Intermediate SWELLING Verified 12/22/24 22:40 Sulfa (Sulfonamide Allergy Intermediate RASH Verified 12/22/24 22:40 Antibiotics) doxycycline Allergy Rash Verified 12/22/24 22:41 Home Medications Medication Instructions Recorded Confirmed Type atorvastatin 20 mg tablet 20 mg PO QAM 12/16/20 12/22/24 History levothyroxine 100 mcg tablet 100 mcg PO DAILYBB 12/16/20 12/22/24 History lisinopril 40 mg tablet 40 mg PO QAM 12/16/20 12/22/24 History omeprazole 40 mg capsule,delayed 40 mg PO DAILYBB 12/16/20 12/22/24 History release acetaminophen 500 mg capsule 500 mg PO Q6 PRN Pain 06/11/23 12/22/24 History aspirin 81 mg tablet,delayed 81 mg PO QAM 06/11/23 12/22/24 History release (Fransisca Low Dose Aspirin) cholecalciferol (vitamin D3) 10 400 mcg PO QAM 06/11/23 12/22/24 History mcg (400 unit) tablet (Vitamin D3) furosemide 20 mg tablet 20 mg PO Q OTHER DAY PRN increased 06/11/23 12/22/24 History swelling or SOB octreotide acetate 500 mcg/mL 20 mg MONTHLY 08/08/23 12/22/24 History injection solution (Sandostatin) hydrocodone 5 mg-acetaminophen 325 1 tab PO Q6 PRN pain mild 09/03/24 12/22/24 History mg tablet apixaban 2.5 mg tablet (Eliquis) 2.5 mg PO AMHS 12/22/24 12/22/24 History ascorbic acid (vitamin C) 100 mg 100 mg PO QAM 12/22/24 12/22/24 History tablet (Vitamin C) carvedilol 6.25 mg tablet 6.25 mg PO AMPM 12/22/24 12/22/24 History estradiol 0.01% (0.1 mg/gram) 1 applic vaginal QAM PRN per pt 12/22/24 12/22/24 History vaginal cream meclizine 12.5 mg tablet 12.5 mg PO TID PRN Dizziness 12/22/24 12/22/24 History multivitamin with minerals-folic 2 tab PO QAM 12/22/24 12/22/24 History acid 200 mcg chewable tablet (Adult Multivitamin Gummies) sucralfate 100 mg/mL oral 10 ml PO ACHS 12/22/24 12/22/24 History suspension Past Med/Surg History Problem List Sepsis Fever (Acute) Cholelithiases S/P TAVR (transcatheter aortic valve replacement) Preop cardiovascular exam Vomiting (Acute) Acute cholangitis (Acute) GERD (gastroesophageal reflux disease) Elevated troponin Chills Elevated LFTs Abdominal pain S/P total right hip arthroplasty Arthritis of right hip Allergic rhinitis SSS (sick sinus syndrome) pt admitted for elective SSS. Underwent procedure without any complications. Monitored overnight and discharged home. 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 Primary pancreatic neuroendocrine tumor following with [facility] heme/onc, no XRT, gets monthly Sandostatin injection Primary neuroendocrine carcinoma of duodenum following with [facility] heme/onc, no XRT, gets monthly Sandostatin injection Sensorineural hearing loss (SNHL) of both ears HF >AD History of knee replacement b/l Medical History Hypertension controlled, stable per pt History of bleeding ulcers (~2017) Myocardial Infarction silent NV per pt, denies when first detected Pacemaker d/t bradycardia/syncope, [employer], follows with [facility] cardio History of COVID-19 (~05/2020) resolved Surgical History 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, [facility], follows with [facility] cardio Hx of endoscopic retrograde cholangiopancreatography (~06/13/23) History of total right hip replacement Hx of aortic valve replacement (~04/06/23) [place], follows with [facility] Cardio Hx laparoscopic cholecystectomy (06/15/23) Robotic Laparoscopic Cholecystectomy(Not Applicable) - Jesse Walsh DO, FACS S/P colonoscopy Hx of esophagogastroduodenoscopy Previous back surgery >11 YEARS AGO- [facility]: pt states upon induction felt "unusual" (unable to further describe) and woke up with emergency medical technician and anesthesiologist checking on her-suspects was bradycardia prior to pacemaker placement; reports no additional issues/episodes; no available records History of cardiac cath x 2, no stents, most recent in [place] in 2022 prior to aortic valve replacement, follows [facility] cardio Family History Other Allergies No family history of bleeding disorder Denies family history of Hearing loss Heart disease Cancer Hypertension Stroke Asthma Social History Smoking Status: Never smoker Second Hand Exposure: No; Do You Dip or Chew Tobacco: No; Hx Alcohol Use: No Hx Substance Use: No Preferred Language: [place] Helen[place] Communication Ability: Effective Property Insurance Agent Required: No Beliefs That Will Affect Care: None marital status: Current Living Situation: Spouse current occupational status: retired How many Children do You have: 4 Feels Safe at Home: Yes Assistive Devices: Denture - Upper, Denture - Lower and Glasses Review of Systems Review of Systems: Constitutional: No Weight Change, +fevers, +chills, +weakness ENT/Mouth: No Hearing Changes, No Ear Pain, No Nasal Congestion, No Sinus Pain, No Hoarseness, No sore throat, No Rhinorrhea, No Swallowing Difficulty Eyes: No Eye Pain, No Swelling, No Redness, No Foreign Body, No Discharge, No Vision Changes Cardiovascular: No Chest Pain, No SOB, No PND, No Dyspnea on Exertion, No Orthopnea, No Claudication, No Edema, No Palpitations Respiratory: No Cough, No Sputum, No Wheezing, No Smoke Exposure, No Dyspnea Gastrointestinal: +nausea, No Vomiting, No Diarrhea, No Constipation, No Pain, No Heartburn, No Anorexia, No Dysphagia, No Hematochezia, No Melena, No Flatulence, No Jaundice Genitourinary: No Dysmenorrhea, No DUB, No Dyspareunia, No Dysuria, No Urinary Frequency, No Hematuria, No Urinary Incontinence, No Urgency, No Flank Pain, No Urinary Flow Changes, No Hesitancy Musculoskeletal: No Arthralgias, No Myalgias, No Joint Swelling, No Joint Stiffness, No Back Pain, No Neck Pain, No Injury History Skin: No Skin Lesions, No Pruritis, No Hair Changes, No Breast/Skin Changes, No Nipple Discharge Neuro: No Weakness, No Numbness, No Paresthesias, No Loss of Consciousness, No Syncope, No Dizziness, No Headache, No Coordination Changes, No Recent Falls Psych: No Anxiety/Panic, No Depression, No Insomnia, No Personality Changes, No Delusions, No Rumination, No SI/HI/AH/VH, No Social Issues, No Memory Changes, No Violence/Abuse Hx., No Eating Concerns Heme/Lymph: No Bruising, No Bleeding, No Transfusions History, No Lymphadenopathy Endocrine: No Polyuria, No Polydipsia, No Temperature Intolerance Physical Exam Physical Exam: VITALS: Reviewed. WEIGHT/BMI reviewed. GEN: Healthy appearing, well-developed, NAD. PSYCH: Good Judgment. AOx3. Normal memory, mood, and affect. HEENT -Head: NC/AT; -Eyes: PERRL, EOMI. No discharge or redn ess; -Ears: External ears are normal. Normal TMs. -Nose: Normal nares. -Mouth and throat: MMM. Normal gums, muc tereso, palate,. Good dentition. NECK: Supple, with no masses. CV: RRR, no m/r/g. LUNGS: CTAB, no w/r/c. ABD: Soft, NT/ND, NBS, no masses or organomegaly. : N/A SKIN: Warm, well perfused. No skin rashes or abnormal lesions. MSK: No deformities, Normal gait. EXT: No clubbing, cyanosis, or edema. NEURO: Ambulating with no limitations. Normal muscle strength and tone. No focal deficits. Results & Data Results & Data Vital Signs (Past 12 Hours) Vital Signs Temp Pulse Pulse Resp BP BP Pulse Ox 12/23/24 00:03 61 17 112/73 94 12/22/24 22:43 65 16 115/53 L 94 12/22/24 22:33 73 12/22/24 22:31 71 12 98 12/22/24 22:23 93 12/22/24 22:23 38.1 C H 78 14 133/71 93 O2 Del Method O2 Flow Rate 12/23/24 00:03 Room Air 12/22/24 22:43 Room Air 12/22/24 22:33 12/22/24 22:31 Room Air 12/22/24 22:23 Room Air 0 12/22/24 22:23 Room Air Laboratory Results 12/22/24 22:35 Aerobic Blood Culture - Pending Blood Anaerobic Blood Culture - Pending 12/22/24 22:28 Aerobic Blood Culture - Pending Blood Anaerobic Blood Culture - Pending 12/23/24 12/23/24 12/22/24 00:59 00:09 23:35 WBC RBC Hgb Hct MCV MCH MCHC RDW Std Deviation RDW Coeff of Allan Plt Count MPV Immature Gran % (Auto) Neut % (Auto) Lymph % (Auto) Barnes % (Auto) Eos % (Auto) Baso % (Auto) Neut # (Auto) Lymph # (Auto) Barnes # (Auto) Eos # (Auto) Baso # (Auto) Immature Gran # (Auto) PT INR Sodium Potassium Chloride Carbon Dioxide Anion Gap BUN Creatinine Est Cr Clr Drug Dosing eGFR BUN/Creatinine Ratio Glucose Lactate 1.5 Calcium Total Bilirubin AST ALT Alkaline Phosphatase Total Protein Albumin Globulin Albumin/Globulin Ratio Lipase Procalcitonin 1.21 H Urine Color Yellow Urine Appearance Clear Urine pH 5.5 Ur Specific Sherwood 1.021 Urine Protein Trace H Urine Glucose (UA) Negative Urine Ketones Trace H Urine Blood Negative Urine Nitrite Negative Urine Bilirubin Negative Urine Urobilinogen Negative Ur Leukocyte Esterase 1+ H Urine WBC (Auto) 0-5 Urine RBC (Auto) 0-2 U Hyaline Cast (Auto) 0-2 U Epithel Cells (Auto) 6-10 H Urine Bacteria (Auto) None Seen Urine Comment Adenovirus (PCR) B. pertussis DNA (PCR) B.parapertussis DNA PCR C. pneumoniae DNA (PCR) Coronavirus OC43 (PCR) Coronavirus HKU1 (PCR) Coronavirus 229E (PCR) SARS-CoV-2 (PCR) Coronavirus NL63 (PCR) Human Metapneumovir PCR Influenza Type A (PCR) Influenza Type B (PCR) M. pneumoniae (PCR) Parainfluenza 1 (PCR) Parainfluenza 2 (PCR) Parainfluenza 3 (PCR) Parainfluenza 4 (PCR) RSV (PCR) Entero/Rhino (PCR) 12/22/24 12/22/24 12/22/24 22:35 22:33 22:28 WBC 14.35 H RBC 4.15 L Hgb 11.2 L Hct 36.1 L MCV 87.0 MCH 27.0 MCHC 31.0 L RDW Std Deviation 51.6 H RDW Coeff of Allan 16.0 H Plt Count 134 MPV 10.6 Immature Gran % (Auto) 0.3 Neut % (Auto) 90.8 Lymph % (Auto) 2.6 Barnes % (Auto) 4.3 Eos % (Auto) 1.7 Baso % (Auto) 0.3 Neut # (Auto) 13.03 H Lymph # (Auto) 0.38 L Barnes # (Auto) 0.61 H Eos # (Auto) 0.24 Baso # (Auto) 0.04 Immature Gran # (Auto) 0.05 PT 11.5 INR 1.1 Sodium 137 Potassium 4.1 Chloride 105 Carbon Dioxide 23 Anion Gap 9 BUN 44 H Creatinine 1.51 H Est Cr Clr Drug Dosing 26.9 eGFR 33.25 BUN/Creatinine Ratio 29.1 H Glucose 152 H Lactate 2.1 H* Calcium 9.3 Total Bilirubin 0.9 AST 66 H ALT 43 Alkaline Phosphatase 130 H Total Protein 6.9 Albumin 4.0 Globulin 2.9 Albumin/Globulin Ratio 1.4 Lipase 21 Procalcitonin Cancelled Urine Color Urine Appearance Urine pH Ur Specific Sherwood Urine Protein Urine Glucose (UA) Urine Ketones Urine Blood Urine Nitrite Urine Bilirubin Urine Urobilinogen Ur Leukocyte Esterase Urine WBC (Auto) Urine RBC (Auto) U Hyaline Cast (Auto) U Epithel Cells (Auto) Urine Bacteria (Auto) Urine Comment Adenovirus (PCR) Not Detected B. pertussis DNA (PCR) Not Detected B.parapertussis DNA PCR Not Detected C. pneumoniae DNA (PCR) Not Detected Coronavirus OC43 (PCR) Not Detected Coronavirus HKU1 (PCR) Not Detected Coronavirus 229E (PCR) Not Detected SARS-CoV-2 (PCR) Not Detected Coronavirus NL63 (PCR) Not Detected Human Metapneumovir PCR Not Detected Influenza Type A (PCR) Not Detected Influenza Type B (PCR) Not Detected M. pneumoniae (PCR) Not Detected Parainfluenza 1 (PCR) Not Detected Parainfluenza 2 (PCR) Not Detected Parainfluenza 3 (PCR) Not Detected Parainfluenza 4 (PCR) Not Detected RSV (PCR) Not Detected Entero/Rhino (PCR) Not Detected Code Status & VTE Plan VTE Prophylaxis Plan VTE Prophylaxis will be ordered: Yes PG Care Time/CCT Total # of Minutes Spent Total Time Spent with Patient: Total time spent is greater than 50% in coordination of care (as documented) at patient's floor/unit and/or counseling patient: Coding Level of Care Code 69868 INT INP/OBS CARE 3/75MIN Diagnoses Fever R50.9 Fever type: unspecified Sepsis A41.9 SSS (sick sinus syndrome) I49.5 History of permanent cardiac pacemaker placement Z95.0 Hx of aortic valve replacement Z95.2 Hx laparoscopic cholecystectomy Z90.49 S/P TAVR (transcatheter aortic valve replacement) Z95.2 (1) Fever Fever type: unspecified Qualified Code(s): R50.9 - Fever, unspecified
--- NOTE | 2024-12-23 01:44 | XRay Report ---
Exam(s): XR CXR 1 VIEW EXAM: XR Chest, 1 View CLINICAL HISTORY: Reason for exam: fever. TECHNIQUE: Frontal view of the chest. COMPARISON: Prior chest x-ray from September 03, 2024.. FINDINGS: There is a cardiac pacemaker in left chest wall distal leads in the right atrium right ventricle. Lungs: Mild to moderate peribronchial thickening of the central and lower lobe bronchi. No consolidation. Pleural space: There is blunting of the left costophrenic angle concerning for chronic pleural disease.. No pneumothorax. Heart: Moderate cardiomegaly. There is a aortic valve stent in place. Mediastinum: Unremarkable. Normal mediastinal contour. Bones/joints: Moderate dextroscoliosis. No acute fracture. IMPRESSION: Bronchitis, which may be of infectious or inflammatory etiologies. No consolidation or pleural effusion. Electronically signed by: Izzy Cortes MD 12/23/24 01:43 AM
[2024-12-23] MEDS ORDERED: CEFEPIME 500MG 500 MG/5 ML SYR IV SCH (01:45)
[2024-12-23] MEDS ORDERED: MAGNESIUM HYDROXIDE SUSP 30 ML UDC PO PRN (01:54)
[2024-12-23] MEDS ORDERED: ALUMINUM/MAGNESIUM SUSP 30 ML UDC PO PRN (01:54)
[2024-12-23] MEDS ORDERED: ONDANSETRON INJ 2 MG/ML 2 ML VIAL IV PRN (01:54)
[2024-12-23] MEDS ORDERED: MECLIZINE 12.5 MG TAB PO PRN (01:54)
[2024-12-23] MEDS ORDERED: POLYETHYLENE (MIRALAX) 17 GM PACK PO PRN (01:54)
--- NOTE | 2024-12-23 02:23 | Ultrasound Report ---
EXAM: US abdomen limited CLINICAL HISTORY: RUQ/ r/o cholelithiasism priorCT TECHNIQUE: Static ultrasound images with Grayscale and Doppler of the right upper quadrant were submitted for review. COMPARISON: none FINDINGS: The liver is enlarged in size measuring ~16cm and shows heterogenous echogenicity with mild surface irregularity and no obvious focal masses. There is bilobar intrahepatic biliary dilatation with pneumobilia. The common bile duct measures ~6.9mm in caliber with possible few air foci within The gallbladder is not visualised- likely cholecystectomy status The pancreas is not visualised due to overlying bowel shadows The right kidney is normal in size (measures ~9.3 x 5.3 x 3.9cm) and echogenicity without evidence of hydronephrosis, nephrolithiasis or focal mass lesions. Multiple anechoic cysts noted, largest seen in lower pole of right kidney, measures ~ 11 x 9 x 9mm. IMPRESSION: 1.Hepatomegaly with altered liver echotexture and mild surface irregularity, could represent chronic liver parenchymal disease, suggest lab correlation 2. Bilobar intrahepatic biliary dilatation with pneumobilia. 3. Anechoic cortical renal cysts on right side Electronically signed by Sumit Hall 12-23-2024 02:23 AM
[2024-12-23] MEDS: SODIUM CHLORIDE 0.9% 1,000 ML IV SCH (04:03)
[2024-12-23] MEDS: LEVOTHYROXINE SODIUM 100 MCG TABLET PO SCH (05:48)
--- NOTE | 2024-12-23 07:32 | Hospitalist Progress Note ---
Date of Service December 23, 2024 Assessment & Plan (1) Sepsis: (2) Fever: (3) History of transcatheter aortic valve replacement (TAVR): (4) Neck pain: (5) EDUIN (acute kidney injury): Plan PT is a 89yo female with PMH of a neuroendocrine tumor of the pancreas, TAVR on 04/27, hypothyroidism, vertigo, CKD3, HLD, b/l SNHL, T2D, implanted pacemaker and GERD presenting to the ED yesterday due to chills, nausea and weakness. Fever - No longer septic (normal temp, lactate) - Elevated WBC: 14.35, procalcitonin 1.21 - Can d/c IV hydration, hold diuretics - IV Cefepime given in the ED - blood cultures + Gram negative bacilli, plan to remain on cefepime until sensitivities return - UA, CXR, abd US does not show signs of infection - Abd US shows pneumobilia, f/u with GI to evaluate for cholangitis or other relevant pathologies - respiratory panel negative - Ordered GGT Neck pain - Hx of OA and RA and on hydrocodone/acetaminophen prn - MRI in [place] a couple of months ago was normal - Recommend MRI outpatient EDUIN superimposed on CKD stage 3 - creatinine elevation noted (BUN 44, Cr: 1.51); slightly higher than baseline - likely due to sepsis - On IV fluids - hold diuresis Hx of TAVR - cont Eliquis SSS s/p permanent pacemaker - noted Admission and Anticipated Discharge Date Admission Date: December 23, 2024 Supervising Physician Co-Signing Physician Notes Resident Physician Supervision Note: I personally examined the patient and verified all dos santos points of history and exam, discussed case, and agree with decision making with Dr. Kruse I discussed the case with the resident and agree with the findings and plan as documented in the note. Any exceptions or clarifications are listed here: Patient was seen in the company of her daughter. She was feeling quite well. She had no additional abdominal pain and most of her pain seems to focused around her neck. She had no radicular symptoms into her arms. Her neck pain is chronic. She was understanding that with her bacteremia there is concern that she should stay in the hospital to further identify the organism. Physical examination she is pleasant cardiac exam is regular there is a faint systolic ejection murmur at the right upper sternal border lungs are clear abdomen NABS soft nontender nondistended extremities are without edema Concern for sepsis secondary to cholangitis given pneumobilia and enlargement of the common bile duct. Continuing antibiotic therapy at this time *Sepsis due to Escherichia coli [E. coli], resolved Documented By: Devin Dias MD Subjective PT is a 89yo female with PMH of a neuroendocrine tumor of the pancrea, TAVR on 04/27, hypothyroidism, vertigo, CKD3, HLD, b/l SNHL, T2D, implanted pacemaker and GERD presenting to the ED yesterday due to chills, nausea and weakness. Was in the ED a couple of months ago for the same symptoms and was discharged with a dx of a closed bronchiole tube and placed on 10 days of antibiotics which resolved the problem. Reports no overnight events except for a drop in temperature overnight at 36.4C. Normally gets chills occasionally but none last night. Has not been able to pass stool or gas since arriving to the ED but notes she is normally constipated. Has chronic neck pain radiating to her posterior head and tingling/numbess radiating to arms occasionally. Currently also has some L>R jaw pain likely also radiating from the neck. No fevers, lightheaded, dizziness, sore throat, chest pain, palpitations, SOB, abd. pain, changes in urinary frequency, dysuria, hematuria or hematochezia. Review of Systems Constitutional: as per Subjective / HPI Physical Exam Physical Exam: HEENT: PEERL, moist mucous membranes, no lymphadenopathy, tenderness to palpation along posterior neck CV: normal r/r, normal S1, S2, aortic stenosis murmer best heard on the RUSB Lungs: CTA b/l, no wheezing, symmetrical chest expansion Abd: soft, nondistended, normal bs, nontender to palpation Extremity: strength 5/5 on quads triceps, biceps and deltoids, no LE edema Results & Data Results & Data Vital Signs (Past 12 Hours) Vital Signs Temp Pulse Pulse Pulse Resp BP BP 12/23/24 02:10 37.2 C 94 H 14 118/73 12/23/24 01:42 36.4 C L 64 18 131/83 12/23/24 00:03 61 17 112/73 12/22/24 22:43 65 16 115/53 L 12/22/24 22:33 73 12/22/24 22:31 71 12 12/22/24 22:23 12/22/24 22:23 38.1 C H 78 14 133/71 Pulse Ox O2 Del Method O2 Flow Rate 12/23/24 02:10 94 Room Air 12/23/24 01:42 96 Room Air 12/23/24 00:03 94 Room Air 12/22/24 22:43 94 Room Air 12/22/24 22:33 12/22/24 22:31 98 Room Air 12/22/24 22:23 93 Room Air 0 12/22/24 22:23 93 Room Air Resident Activity Tracking Resident Involvement: Resident Care Provided Care Provided: Adult Hospital Medicine (2) Fever Fever type: unspecified Qualified Code(s): R50.9 - Fever, unspecified
[2024-12-23] MEDS: ACETAMINOPHEN 325 MG TAB PO PRN (09:02)
[2024-12-23] MEDS: APIXABAN 2.5 MG TAB PO SCH (09:03)
[2024-12-23] MEDS: ATORVASTATIN 20 MG TAB PO SCH (09:03)
[2024-12-23] MEDS: SUCRALFATE 1 GM/10 ML UDC PO SCH (09:03)
[2024-12-23] MEDS: ASPIRIN 81 MG ECTAB PO SCH (09:03)
[2024-12-23] MEDS: CEFEPIME 1000MG 1,000 MG/10 ML SYR IV SCH (12:28)
[2024-12-23 12:54] LABS: A calco-baum cmplx NotReported Not Detected (NotDetected); Bact fragilis Not Reported Not Detected (NotDetected); Blood Culture Id Panel See PCR Comment (NotDetected); C auris Not Reported Not Detected (NotDetected); CTX-M Resistant Gene Not Detected (NotDetected); Calbicans Not Reported Not Detected (NotDetected); Candida glabrata Not Reported Not Detected (NotDetected); Candida krusei Not Reported Not Detected (NotDetected); Cneoformans/gatti Not Reported Not Detected (NotDetected); Cparapsilosis Not Reported Not Detected (NotDetected); Ctropicalis Not Reported Not Detected (NotDetected); E cloacae compx Not Reported Not Detected (NotDetected); Efaecalis Not Reported Not Detected (NotDetected); Efaecium Not Reported Not Detected (NotDetected); Enterobacterales DETECTED (NotDetected); Enterobacterales Not Reported DETECTED (NotDetected); Escherichia coli Not Reported DETECTED (NotDetected); H influenzae Not Reported Not Detected (NotDetected); IMP Resistant Gene Not Detected (NotDetected); K aerogenes Not Reported Not Detected (NotDetected); KPC Resistant Gene Not Detected (NotDetected); Koxytoca Not Reported Not Detected (NotDetected); Kpneumoniae grp Not Reported Not Detected (NotDetected); Lmonocyt Not Reported Not Detected (NotDetected); N meningitidis Not Reported Not Detected (NotDetected); NDM Resistant Gene Not Detected (NotDetected); OXA 48 Like Resistant Gene Not Detected (NotDetected); P aeruginosa Not Reported Not Detected (NotDetected); Proteus spp Not Reported Not Detected (NotDetected); Salmonella spp Not Reported Not Detected (NotDetected); Staph lugdunensis Not Reported Not Detected (NotDetected); Staph spp. Not Reported Not Detected (NotDetected); Staphaureus Not Reported Not Detected (NotDetected); Staphepi Not Reported Not Detected (NotDetected); Stenmaltophilia Not Reported Not Detected (NotDetected); Strep agal(GrpB) Not Reported Not Detected (NotDetected); Strep pneum Not Reported Not Detected (NotDetected); Strep pyog (GrpA) Not Reported Not Detected (NotDetected); Strep spp Not Reported Not Detected (NotDetected); VIM Resistant Gene Not Detected (NotDetected); mcr-1 Colistin Resistant Gene Not Detected (NotDetected)
[2024-12-23] MEDS: MELATONIN 3 MG TAB PO PRN (20:23)
--- NOTE | 2024-12-24 07:14 | Hospitalist Progress Note ---
Date of Service December 24, 2024 Assessment & Plan (1) Sepsis: (2) Fever: (3) History of transcatheter aortic valve replacement (TAVR): (4) Neck pain: (5) EDUIN (acute kidney injury): Plan PT is a 89yo female with PMH of a neuroendocrine tumor of the pancreas, TAVR on 04/27, hypothyroidism, vertigo, CKD3, HLD, b/l SNHL, T2D, implanted pacemaker and GERD presenting to the ED 12/22 due to chills, nausea and weakness. Fever - No longer septic (normal temp, lactate) - Elevated WBC: 14.35, procalcitonin: 1.21, GGT: 68 - IV fluid hydration, hold diuretics - blood cultures + Gram negative bacilli, plan to remain on cefepime until sensitivities return - UA, CXR, abd US, and respiratory panel does not show signs of infection - Abd US shows pneumobilia - Discussed with GI who recommended cholangitis treatment protocol, does not recommend MRCP if bilirubin levels are stable and not rising - Patient had 2/5 criteria in Bradley's Pentad (fever and hypotension). Mildly elevated GGT and Alk phos levels. While cholangitis remains on differential, likelihood may be low and this may be sepsis from unknown origin. Neck pain - Hx of OA and RA and continue hydrocodone/acetaminophen prn - MRI in [place] a couple of months ago was normal - Recommend MRI and PT/OT outpatient - Ordered 5mg Oxycodone/325 Acetaminophen BID for pain relief as needed EDUIN superimposed on CKD stage 3 - BUN/Cr elevated but downtrending (BUN 33, Cr: 1.35); slightly higher than baseline - likely due to sepsis - On IV fluids - hold diuresis Hx of TAVR - cont Eliquis SSS s/p permanent pacemaker - noted Dispo: admit VTE prophylaxis: Eliquis Code status: full Diet: carb consistent/DM2 Admission and Anticipated Discharge Date Admission Date: December 23, 2024 Supervising Physician Co-Signing Physician Notes Resident Physician Supervision Note: I personally examined the patient and verified all dos santos points of history and exam, discussed case, and agree with decision making with Dr. Kruse I discussed the case with the resident and agree with the findings and plan as documented in the note. Any exceptions or clarifications are listed here: Patient was seen in the company of her daughter. She continues to feel quite well. She had no additional abdominal pain and most of her pain seems to focused around her neck. She had no radicular symptoms into her arms. Her neck pain is chronic. She was understanding that with her bacteremia there is concern that she should stay in the hospital to further identify the sensitivity to antibiotics of the organism. Physical examination she is pleasant cardiac exam is regular there is a faint systolic ejection murmur at the right upper sternal border lungs are clear abdomen NABS soft nontender nondistended extremities are without edema Reviewed CBC reviewed chemistry, reviewed LFTs including GGT from 12/23/2024 Concern for sepsis secondary to cholangitis given pneumobilia and enlargement of the common bile duct. Continuing antibiotic therapy at this time hopeful to have sensitivities identified by tomorrow and if the patient able to go home. *Sepsis due to Escherichia coli [E. coli], resolved Documented By: Devin Dias MD Subjective PT is a 89yo female with PMH of a neuroendocrine tumor of the pancreas, TAVR on 04/27, hypothyroidism, vertigo, CKD3, HLD, b/l SNHL, T2D, implanted pacemaker and GERD presenting to the ED on 12/22 due to chills, nausea and weakness. Was only able to sleep 1.5 hours at 3am due to discomfort of the bed and the pain in her neck. Has tinnitis and feels like her left ear is ballooning. No other overnight events. Appetite is well. No fevers, nausea, lightheaded, dizziness, sore throat, chest pain, palpitations, SOB, abd. pain, changes in urinary frequency, dysuria, hematuria or hematochezia. Review of Systems Constitutional: as per Subjective / HPI Physical Exam Physical Exam: HEENT: Moist mucous membranes, TM clear and intact, tenderness to palpation along posterior neck CV: normal r/r, normal S1, S2, aortic stenosis murmer best heard on the RUSB Lungs: CTA b/l, no wheezing, symmetrical chest expansion Abd: soft, nondistended, normal bs, nontender to palpation Extremity: no LE edema Results & Data Results & Data Vital Signs (Past 12 Hours) Vital Signs Temp Pulse Resp BP Pulse Ox O2 Del Method 12/23/24 20:14 36.6 C 86 18 168/77 H 96 Room Air Resident Activity Tracking Resident Involvement: Resident Care Provided Care Provided: Adult [facility] (2) Fever Fever type: unspecified Qualified Code(s): R50.9 - Fever, unspecified
[2024-12-24 09:07] LABS: Hematocrit (blood only) 34.0 % (37.0-47.0); Hemoglobin 10.6 g/dl (12.0-16.0); Mean Corpuscular Hemoglobin 27.3 pg (25.0-34.0); Mean Corpuscular Volume 87.6 fL (80.0-100.0); Platelet Count 113 K/uL (130-400); RDW Standard Deviation 52.3 fL (36.4-46.3); Red Blood Count 3.88 M/uL (4.20-5.40); White Blood Count 8.04 K/ul (4.8-10.8)
[2024-12-24 09:27] LABS: Alanine Aminotransferase 34.0 U/L (7-52); Albumin Globulin Ratio 1.3 (0.9-2); Alkaline Phosphatase 105.0 U/L (34-104); Anion Gap 5.0 (3-11); Bilirubin,Total 0.7 mg/dl (0.2-1.0); Blood Urea Nitrogen 33.0 mg/dl (6-23); Calcium 8.9 mg/dl (8.6-10.3); Carbon Dioxide 25.0 mmol/L (21-32); Chloride 109.0 mmol/L (98-107); Creatinine Clr Calc Pharmacy 29.3 ml/min; Globulin 2.8 gm/dl (2.5-4.0); Glucose 202.0 mg/dl (70-99(Fasting)); Potassium 4.5 mmol/L (3.5-5.1); Sodium 139.0 mmol/L (136-145); Total Protein 6.4 gm/dl (6.0-8.3)
[2024-12-24] MEDS: LACTATED RINGER'S 1,000 ML IV SCH (09:48)
--- NOTE | 2024-12-24 15:40 | Billing Data ---
Date of Service December 23, 2024 Coding Level of Care Code 01971 SUB INP/OBS CARE
--- NOTE | 2024-12-24 15:43 | Billing Data ---
Date of Service December 24, 2024 Coding Level of Care Code 04504 SUB INP/OBS CARE
[2024-12-25 07:00] LABS: Hematocrit (blood only) 32.2 % (37.0-47.0); Hemoglobin 10.3 g/dl (12.0-16.0); Mean Corpuscular Hemoglobin 27.5 pg (25.0-34.0); Mean Corpuscular Volume 86.1 fL (80.0-100.0); Platelet Count 124 K/uL (130-400); RDW Standard Deviation 50.0 fL (36.4-46.3); Red Blood Count 3.74 M/uL (4.20-5.40); White Blood Count 9.33 K/ul (4.8-10.8)
[2024-12-25 07:16] LABS: Alanine Aminotransferase 28.0 U/L (7-52); Albumin Globulin Ratio 1.3 (0.9-2); Alkaline Phosphatase 106.0 U/L (34-104); Anion Gap 7.0 (3-11); Bilirubin,Total 0.8 mg/dl (0.2-1.0); Blood Urea Nitrogen 23.0 mg/dl (6-23); Calcium 9.0 mg/dl (8.6-10.3); Carbon Dioxide 26.0 mmol/L (21-32); Chloride 104.0 mmol/L (98-107); Creatinine Clr Calc Pharmacy 36.0 ml/min; Globulin 2.8 gm/dl (2.5-4.0); Potassium 4.2 mmol/L (3.5-5.1); Sodium 137.0 mmol/L (136-145); Total Protein 6.4 gm/dl (6.0-8.3)
[2024-12-25 07:23] VITALS: BP 183/103; RESP 16; TEMP 98.2; O2SAT 94
--- NOTE | 2024-12-25 07:38 | Discharge Summary ---
Date of Service December 25, 2024 Admission HPI Per Admitting Provider This is an 89 year old female with a PMH of neuroendocrine tumor of the pancreas, hx of TAVR, hypothyroidism, vertigo, CKD stage 3, HLD - coming in with nausea and weakness. States the nausea began on the day of arrival; not associated with vomiting. She states that she also felt chills which prompted her to come to the ER. In the ER, she spiked a fever (100.5), had leukocytosis as well as lactic acidosis. UA and CXR done and no obvious infection noted. IV fluids ordered and patient was given IV cefepime. Admission Exam Per Admitting Provider VITALS: Reviewed. WEIGHT/BMI reviewed. GEN: Healthy appearing, well-developed, NAD. PSYCH: Good Judgment. AOx3. Normal memory, mood, and affect. HEENT -Head: NC/AT; -Eyes: PERRL, EOMI. No discharge or redness; -Ears: External ears are normal. Normal TMs. -Nose: Normal nares. -Mouth and throat: MMM. Normal gums, mucosa, palate,. Good dentition. NECK: Supple, with no masses. CV: RRR, no m/r/g. LUNGS: CTAB, no w/r/c. ABD: Soft, NT/ND, NBS, no masses or organomegaly. : N/A SKIN: Warm, well perfused. No skin rashes or abnormal lesions. MSK: No deformities, Normal gait. EXT: No clubbing, cyanosis, or edema. NEURO: Ambulating with no limitations. Normal muscle strength and tone. No focal deficits. Principal Diagnosis Sepsis of unknown origin Discharge Exam Constitutional WD/WN, vitals as above Respiratory normal respiratory effort, lungs clear to auscultation Cardiovascular RRR, no murmur, no edema Gastrointestinal (Abdomen) normal bowel sounds, soft, nontender, no hepatosplenomegaly Skin no rashes, warm and dry Psychiatric A+Ox3, euthymic affect Discharge Data Allergies Allergy/AdvReac Type Severity Reaction Status Date / Time bee venom protein (honey bee) Allergy Intermediate SWELLING Verified 12/22/24 22:40 Sulfa (Sulfonamide Allergy Intermediate RASH Verified 12/22/24 22:40 Antibiotics) doxycycline Allergy Rash Verified 12/22/24 22:41 Consultations 12/23/24 00:23 ED Decision to Admit Stat Ordered Studies 12/23/24 00:50 US abdomen limited Stat Hospital Course (1) Sepsis: (2) Fever: (3) History of transcatheter aortic valve replacement (TAVR): (4) Neck pain: (5) EDUIN (acute kidney injury): Plan PT is a 89yo female with PMH of a neuroendocrine tumor of the pancreas, TAVR on 04/27, hypothyroidism, vertigo, CKD3, HLD, b/l SNHL, T2D, implanted pacemaker and GERD presenting to the ED 12/22 due to chills, nausea and weakness. Fever - No longer septic (normal temp, lactate) - Elevated WBC: 14.35, procalcitonin: 1.21, GGT: 68 - IV fluid hydration, hold diuretics - blood cultures + Gram negative bacilli, planned to remain on cefepime until sensitivities return - UA, CXR, abd US, and respiratory panel does not show signs of infection - Abd US shows pneumobilia - Discussed with GI who recommended cholangitis treatment protocol, does not recommend MRCP if bilirubin levels are stable and not rising - Patient had 2/5 criteria in Bradley's Pentad (fever and hypotension). Mildly elevated GGT and Alk phos levels. While cholangitis remains on differential, likelihood may be low and this may be sepsis from unknown origin. - Sensitivities returned, hernandez-sensitive, recommend patient start on oral ciprofloxacin 500mg BID for 7 days, plan for discharge today - EKG to check baseline QTC interval (426 ms) Neck pain - Hx of OA and RA and continue hydrocodone/acetaminophen prn - MRI in [place] a couple of months ago was normal - Recommend MRI and PT/OT outpatient - Ordered 5mg Oxycodone/325 Acetaminophen BID for pain relief as needed during time of admission EDUIN superimposed on CKD stage 3 - BUN/Cr elevated but downtrending (BUN 33, Cr: 1.35); slightly higher than baseline - likely due to sepsis - On IV fluids - hold diuresis Hx of TAVR - cont Eliquis HTN - Continue home regimen - Follow up closely with PCP as blood pressures were slightly elevated towards end of admission (183/103), likely due to not taking her Furosemide pill, good idea to get BP check outpatient and determine if any changes need to be made SSS s/p permanent pacemaker - noted Dispo: discharge VTE prophylaxis: Eliquis Code status: full Diet: carb consistent/DM2 Total Time Total Time Spent Total Time Spent (In Minutes): As per attending attestation Discharge Plan Discharge Items Patient Disposition: Home - Self-Care Reason For Visit: SEPSIS, FUO Discharge Diagnosis: Sepsis with unclear infective source, possibly cholangitis Condition on Discharge: Fair Activity: Resume your previous activity Non-emergency contact: Primary Care Provider Call non-emergency contact if: you have any medication questions, your symptoms worsen and you have a fever Follow-up/Referrals: Chelsey Mitchell, [Primary Care Provider] - Diet: Carb Consistent or DM2 Addtl Attending Provider Instructions: You were admitted to the hospital for fever. You were treated with Cefepime and Toradol, as well as your home medications. A discharge summary will be sent to your primary care physician to ensure continuity of care. Please bring this discharge summary with you to your next office appointment so that your provider can review it at that time. Follow-up appointments: Make a follow-up appointment with your PCP within the next week. It is very important that you follow up with them shortly after discharge from the hospital. Keep all your follow-up appointments as already scheduled. If you cannot make an appointment, notify your provider. Medications: Your medication list has been reviewed and reconciled upon discharge to ensure accuracy and continuity of care. An updated list of all your medications is included with your hospital discharge paperwork. Please review this list closely, and make note of any changes. We sent a new medication called Ciprofloxacin to your pharmacy. Take Ciprofloxacin 500 mG, one tablet, twice daily, for 7 days. Continue taking home medications as indicated. Take your medications as instructed; do not skip a dose of your medicines. Make sure all of your doctors know every medicine you are taking (including [id number] medicines, vitamins, and supplements). Call your primary care provider before taking any new medicines (including quvp-yye-pyzpsnp medicines, vitamins, and supplements), because some of these may interact with your current medications, or may make your symptoms worse. Tell your primary care provider if you cannot afford your medications. CONTACT YOUR PRIMARY CARE PROVIDER if you experience any of the following: Newly developed fever, temperature greater than >100.4, chills Difficulty following your treatment plan, or difficulty taking medications CALL 911 OR GO TO THE EMERGENCY DEPARTMENT if you experience any of the following: Sudden, severe abdominal pain or nausea/vomiting Severe chest pain, or chest pain that radiates (moves) to your jaw or arm Sudden, severe shortness of breath or difficulty breathing Thank you for allowing us to participate in your care Pending Studies at Discharge: No Stand-Alone Forms: My [facility], Smoking Cessation Medications and DC Order Prescriptions: New ciprofloxacin HCl [Cipro] 500 mg tablet 500 mg PO BID 7 Days Qty: 14 0RF Rx Instructions: Please take medicine twice a day for 7 days. Continued atorvastatin 20 mg tablet 20 mg PO QAM omeprazole 40 mg capsule,delayed release(DR/EC) 40 mg PO DAILYBB levothyroxine 100 mcg tablet 100 mcg PO DAILYBB lisinopril 40 mg tablet 40 mg PO QAM acetaminophen 500 mg capsule 500 mg PO Q6 PRN (Reason: Pain) furosemide 20 mg tablet 20 mg PO Q OTHER DAY PRN (Reason: increased swelling or SOB) aspirin [Fransisca Low Dose Aspirin] 81 mg tablet,delayed release (DR/EC) 81 mg PO QAM cholecalciferol (vitamin D3) [Vitamin D3] 10 mcg (400 unit) Tablet 400 mcg PO QAM hydrocodone-acetaminophen 5-325 mg tablet 1 tab PO Q6 PRN (Reason: pain mild) meclizine 12.5 mg tablet 12.5 mg PO TID PRN (Reason: Dizziness) carvedilol 6.25 mg tablet 6.25 mg PO AMPM sucralfate 100 mg/mL suspension 10 ml PO ACHS Eliquis 2.5 mg tablet 2.5 mg PO AMHS estradiol 0.01 % (0.1 mg/gram) cream 1 applic VAGINAL QAM PRN (Reason: per pt) Rx Instructions: using as needed...ordered routine Vitamin C 100 mg Tablet 100 mg PO QAM multivit with min-folic acid [Adult Multivitamin Gummies] 200 mcg Tablet,Chewable 2 tab PO QAM octreotide acetate [Sandostatin] 500 mcg/mL Solution 20 mg MONTHLY Rx Instructions: inject into large muscle every month DUE AGUST 2024 Discharge Orders: Discharge Order (Routine); Ordered 12/25/24 Ordered By: Ila Kruse Admission Data Admit Date/Time: 12/23/24 00:45 Attending Provider: Devin Dias Admit Provider: Jeffrey Pablo Primary Care Provider: Chelsey Mitchell Other Providers: Jimy Ojeda; IRB Approved Study,Markell Other Interventions: Discharge Summary Assessment (RN) Last Done: 12/25/24 09:23 Supervising Physician Co-Signing Physician Notes Resident Physician Supervision Note: I personally examined the patient discussed case with family and resident , and agree with decision making with Dr. Kruse pt planned for discharge on 12/25/24 Patient was seen in the company of her daughter. She continues to feel quite well. She had no additional abdominal pain and most of her pain seems to focused around her neck. She had no radicular symptoms into her arms. Her neck pain is chronic. Physical examination she is pleasant cardiac exam is regular there is a faint systolic ejection murmur at the right upper sternal border lungs are clear abdomen NABS soft nontender nondistended extremities are without edema Reviewed CBC reviewed chemistry o the day of discharge Concern for sepsis secondary to cholangitis given pneumobilia and enlargement of the common bile duct. Continuing Cipro to complete course at home. *Sepsis due to Escherichia coli [E. coli], resolved Documented By: Devin Dias MD Resident Activity Tracking Resident Involvement: Resident Care Provided Care Provided: Adult Hospital Medicine
[2024-12-25 09:25] VITALS: PULSE 60
--- NOTE | 2024-12-25 16:01 | Billing Data ---
Date of Service December 25, 2024 Coding Level of Care Code 63898 IN/OBS DISCH 30 MIN/LESS
--- NOTE | 2024-12-27 14:30 | Electrocardiogram Report ---
Test Reason : Blood Pressure : */* mmHG Vent. Rate : 61 BPM Atrial Rate : 357 BPM P-R Int : * ms QRS Dur : 112 ms QT Int : 426 ms P-R-T Axes : * -50 53 degrees QTcB Int : 428 ms Ventricular-paced rhythm Underlying organized arial fibrillation Abnormal ECG When compared with ECG of 03-Sep-2024 10:09, Electronic ventricular pacemaker has replaced Electronic atrial pacemaker Atrial fibrillation is now Present Confirmed by Rikki Mtz ([id number]) on 12/27/2024 2:30:10 PM Referred By: REFERRED SELF Confirmed By: Rikki Mtz
== END 2024-12-25 10:34 | disposition home or self-care (01) | DRG 872 ==
LOC: ED 22:22 → SUATTDRO 12-23 00:45 → 3E 12-23 00:45